=== PATIENT | male | born 1965 | race Caucasian/White ===

== ENCOUNTER 2017-10-26 07:36 | Emergency (ER) | payer OTHER, SELFPAY ==
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
[2017-10-26 07:50] VITALS: BP 143/81; PULSE 101; RESP 20; TEMP 36.3; O2SAT 98; BMI 25.4
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
[2017-10-26] MEDS: KETOROLAC 60 MG/2 ML VIAL 30 MG IM (08:06)
[2017-10-26 08:50] VITALS: BP 134/73; PULSE 86; RESP 15; O2SAT 97
== END 2017-10-26 08:58 | disposition home or self-care (01) ==
PROVIDERS: Emergency Provider Emergency Medicine
DX: M54.5 Low back pain (principal)
CPT/HCPCS: 72100; 96372; 99282; J1885

== ENCOUNTER → 2017-11-27 10:49 | Outpatient (CLI) | payer OTHER, SELFPAY ==
--- NOTE | 2017-11-27 10:52 | DI.RAD.S_ITS ---
PROCEDURE: XR LUMBAR SPINE 2-3V INDICATIONS: CHRONIC PAIN TECHNIQUE: 3 views of the lumbar spine were acquired. COMPARISON: None. FINDINGS: Bones: 5 [id number] vertebrae are present. There is mild dextroconvex curvature with slight retrolisthesis at L2-3, L3-4, L4-5 and L5-S1. Degenerative disc narrowing L3-4 and L5-S1. Multilevel facet sclerosis, most marked at L5-S1. No vertebral body compression fractures. No suspicious bony lesions. Soft tissues: Overlying bowel gas pattern is normal. Vascular calcifications. IMPRESSION: 1. No acute bony abnormality. Disc degeneration and facet arthropathy. Slight malalignment deformities. Scoliosis. Dictated by: Trent Casanova M.D. on 11/27/2017 at 11:09 Approved by: Trent Casanova M.D. on 11/27/2017 at 11:12
== END ==
PROVIDERS: Visit Provider Physician Assistant
DX: M51.36 Other intervertebral disc degeneration, lumbar region (principal); M51.37 Other intervertebral disc degeneration, lumbosacral region; M47.817 Spondylosis without myelopathy or radiculopathy, lumbosacral region; M54.5 Low back pain; G89.29 Other chronic pain; M41.9 Scoliosis, unspecified
CPT/HCPCS: 72100

== ENCOUNTER 2017-12-14 14:00 | Emergency (ER) | payer OTHER, SELFPAY ==
[2017-12-14 14:12] VITALS: BP 139/95; PULSE 108; RESP 14; TEMP 37.2; O2SAT 98; BMI 25.8
[2017-12-14] MEDS: KETOROLAC 60 MG/2 ML VIAL 30 MG IV (15:30)
[2017-12-14] MEDS: SODIUM CHLORIDE 0.9% 1,000 ML 1000 ML IV (15:30)
[2017-12-14 15:32] VITALS: BP 123/79; PULSE 84; RESP 14; O2SAT 96
--- NOTE | 2017-12-14 15:34 | PC.NURSE ---
Pt seen previously for left back / flank pain. States that it is no better. UA revealed blood in urine. No h/o kidney stones.
[2017-12-14 15:49] LABS: Add Manual Diff / Slide Review NO; Eosinophils Percent Auto 0.9 % (2-4); Hematocrit 37.1 % (41-53); Hemoglobin 13.2 g/dL (13.5-17.5); Lymphocytes Percent Auto 12.7 % (25-40); Mean Corpuscular HGB Conc 35.5 % (30-36); Mean Corpuscular Hemoglobin 30.6 PG (26-34); Mean Corpuscular Volume 86.2 fL (80-100); Monocytes Percent Auto 4.9 % (3-14); Neutrophils Absolute Auto 8800 /uL (3000-5900); Neutrophils Percent Auto 80.5 % (50-75); Platelet Count 278 X10^3/uL (150-400); Red Blood Cell Count 4.31 X10^6/uL (4.5-5.9); Red Cell Distribution Width 12.7 % (11.6-14.8); White Blood Cell Count 10.9 X10^3/uL (4.5-11.0)
[2017-12-14 15:57] LABS: Bacteria Urine Occasional (0-1); Culture Indicated Urine Cult Not Indicated; Hyaline Casts Urine 5-10/LPF; Mucus Urine 2+ (Negative); RBC Urine 5-10/HPF (0-5/HPF); Squamous Epithelial Cell Urine 0-1 /HPF; Transitional Epi Cells Urine 0-1/HPF (0-5/HPF); WBC Urine 1-5/HPF (0-5/HPF)
[2017-12-14 16:10] LABS: INR 1.2 (0.9-1.3); Prothrombin Time 12.6 SECONDS (10.1-12.7)
[2017-12-14 16:12] LABS: PTT Partial Thromboplastin Tim 31 SECONDS (26.4-36.2)
[2017-12-14 16:14] LABS: Alanine Aminotransferase 30 IU/L (21-72); Albumin 4.4 g/dL (3.5-5.0); Albumin Globulin Ratio 1.3 (1.0-2.8); Alkaline Phosphatase 92 U/L (38-126); Aspartate Aminotransferase 19 IU/L (17-59); BUN Creatinine Ratio 36.7 (6-22); Bilirubin Total 0.6 mg/dL (0.2-1.3); Blood Urea Nitrogen 22 mg/dL (9-20); Calcium 9.9 mg/dL (8.4-10.2); Carbon Dioxide 28 mmol/L (22-32); Chloride 103 mmol/L (98-107); Estimated Glomerular Filt Rate > 60.0 mL/min (>60); Globulin 3.5 g/dL (1.7-4.1); Glucose 81 mg/dL (70-100); HEMOLYSIS < 15 (0-50); Lipase 243 U/L (23-300); Potassium 4.2 mmol/L (3.4-5.1); Sodium 142 mmol/L (137-145); Total Protein 7.9 g/dL (6.3-8.2)
--- NOTE | 2017-12-14 17:16 | ED.BACK ---
HPI - Back Pain/Injury <BENITA Mcfarland - Last Filed: 12/14/17 22:27> General Chief Complaint: Back Pain/Injury Stated Complaint: LOWER LEFT FLANK AND BACK PAIN Time Seen by Provider: 12/14/17 17:16 Source: patient Mode of arrival: ambulatory Limitations: no limitations History of Present Illness HPI Narrative: 52-year-old male with history of polysubstance abuse and hypertension that is an everyday smoker here for complaint of having pain into his left flank area and left abdomen area for the last month and a half. He denies any stressors or relievers of his pain. He states he has positive p.o. intake. No nausea or vomiting. He denies any urinary symptoms. He denies having any complications with bowel movements. Last bowel movement was yesterday and was unremarkable. He denies any trauma to the area. No other concerns or complaints. Related Data Home Medications Medication Instructions Recorded Confirmed lisinopril 10 mg tablet 5 mg PO DAILY 11/26/17 12/14/17 lorazepam 1 mg tablet 1 mg BUCCAL BID-TID PRN 11/26/17 12/14/17 ibuprofen [Advil] 400 mg PO QID PRN 12/14/17 12/14/17 Previous Rx's Medication Instructions Recorded meloxicam 7.5 mg PO DAILY #30 tab 10/26/17 Allergies Allergy/AdvReac Type Severity Reaction Status Date / Time No Known Drug Allergies Allergy Verified 12/14/17 15:18 Review of Systems <BENITA Mcfarland - Last Filed: 12/14/17 22:27> Constitutional Denies chills, Denies fever(s), Denies lethargy and Denies weakness Eyes Denies change in vision, Denies eye discharge, Denies irritation and Denies loss of vision ENT Ears, Nose, Mouth, and Throat: Denies change in voice, Denies neck pain and Denies sore throat Cardiovascular Denies chest pain, Denies irregular heart rhythm, Denies lightheadedness, Denies palpitations, Denies dyspnea, Denies dyspnea on exertion and Denies orthopnea Respiratory Denies cough, Denies dyspnea, Denies dyspnea on exertion and Denies wheezing Gastrointestinal Gastrointestinal: Reports abdominal pain Genitourinary Comments: Left flank pain Musculoskeletal Denies neck pain Integumentary/Breasts Denies pruritus, Denies erythema, Denies rash and Denies wounds Neurologic Denies confusion, Denies loss of vision and Denies weakness Psychiatric Denies anxiety, Denies confusion, Denies depression, Denies homicidal ideation and Denies suicidal ideation Endocrine Denies palpitations Hematologic/Lymphatic Denies easy bruising Allergic/Immunologic Denies wheezing Exam <BENITA Mcfarland - Last Filed: 12/14/17 22:27> Initial Vital Signs Initial Vital Signs: Vital Signs Temperature 98.9 F 12/14/17 14:12 Pulse Rate 108 H 12/14/17 14:12 Respiratory Rate 14 12/14/17 14:12 Blood Pressure 139/95 H 12/14/17 14:12 Pulse Oximetry 98 12/14/17 14:12 Const General: cooperative and well developed Nutritional Appearance: well nourished Orientation: alert, awake, oriented x3 and not confused HENMT Mouth: oral mucosae normal and moist mucous membranes Eyes Conjunctivae: conjunctivae normal Sclera: sclerae normal Pupils: PERRL EOM: EOM intact bilaterally Cardio Rate: regular rate Rhythm: regular rhythm Heart Sounds: no click, no gallops, no murmurs and no rubs Pulses: normal peripheral pulses GI Inspection: non-distended Palpation: soft, no hepatosplenomegaly, No guarding, No pulsatile mass and No tender Auscultation: normal bowel sounds General: CVA tenderness Skin General: no rashes or lesions noted, No jaundice and No petechiae Neuro General: alert, oriented x3, gait normal and no focal motor deficits Speech: speech normal <Viktoriya Trivedi DO - Last Filed: 12/15/17 13:25> Initial Vital Signs Initial Vital Signs: Vital Signs Temperature 98.9 F 12/14/17 14:12 Pulse Rate 108 H 12/14/17 14:12 Respiratory Rate 14 12/14/17 14:12 Blood Pressure 139/95 H 12/14/17 14:12 Pulse Oximetry 98 12/14/17 14:12 Course <BENITA Mcfarland - Last Filed: 12/14/17 22:27> Orders Ordered: Discontinued Medications Sodium Chloride (Normal Saline 0.9%) 1,000 mls @ 1,000 mls/hr IV BOLUS ONE Stop: 12/14/17 16:16 Last Infusion: 12/14/17 17:32 Dose: 0 mls/hr Admin: 12/14/17 15:30 Dose: 1,000 mls/hr Ketorolac Tromethamine (Toradol) 30 mg IV NOW ONE Stop: 12/14/17 15:18 Last Admin: 12/14/17 15:30 Dose: 30 mg Vital Signs - 8 hr 12/14/17 15:32 Pulse Rate 84 Respiratory Rate 14 Blood Pressure [Right Arm] 123/79 H Pulse Oximetry 96 <Viktoriya Trivedi DO - Last Filed: 12/15/17 13:25> Orders Ordered: Discontinued Medications Sodium Chloride (Normal Saline 0.9%) 1,000 mls @ 1,000 mls/hr IV BOLUS ONE Stop: 12/14/17 16:16 Last Infusion: 12/14/17 17:32 Dose: 0 mls/hr Admin: 12/14/17 15:30 Dose: 1,000 mls/hr Ketorolac Tromethamine (Toradol) 30 mg IV NOW ONE Stop: 12/14/17 15:18 Last Admin: 12/14/17 15:30 Dose: 30 mg Vital Signs - 8 hr 12/14/17 15:32 Pulse Rate 84 Respiratory Rate 14 Blood Pressure [Right Arm] 123/79 H Pulse Oximetry 96 MDM - Back Pain/Injury <BENITA Mcfarland - Last Filed: 12/14/17 22:27> Lab Data Result diagrams: 12/14/17 15:35 12/14/17 15:35 Lab Results 12/14/17 12/14/17 12/14/17 Range/Units 14:32 15:35 15:35 WBC 10.9 (4.5-11.0) X10^3/uL RBC 4.31 L (4.5-5.9) X10^6/uL Hgb 13.2 L (13.5-17.5) g/dL Hct 37.1 L (41-53) % MCV 86.2 (80-100) fL MCH 30.6 (26-34) PG MCHC 35.5 (30-36) % RDW 12.7 (11.6-14.8) % Plt Count 278 (150-400) X10^3/uL Neut % (Auto) 80.5 H (50-75) % Lymph % (Auto) 12.7 L (25-40) % Montgomery % (Auto) 4.9 (3-14) % Eos % (Auto) 0.9 L (2-4) % Baso % (Auto) 1.0 (0-2) % Neut # (Auto) 8800 H (6902-4431) /uL PT 12.6 (10.1-12.7) SECONDS INR 1.2 (0.9-1.3) APTT 31 (26.4-36.2) SECONDS Sodium (137-145) mmol/L Potassium (3.4-5.1) mmol/L Chloride (98-107) mmol/L Carbon Dioxide (22-32) mmol/L BUN (9-20) mg/dL Creatinine (0.66-1.25) mg/dL Estimated GFR (>60) mL/min BUN/Creatinine Ratio (6-22) Glucose (70-100) mg/dL Calcium (8.4-10.2) mg/dL Total Bilirubin (0.2-1.3) mg/dL AST (17-59) IU/L ALT (21-72) IU/L Alkaline Phosphatase (38-126) U/L Total Protein (6.3-8.2) g/dL Albumin (3.5-5.0) g/dL Globulin (1.7-4.1) g/dL Albumin/Globulin Ratio (1.0-2.8) Lipase (23-300) U/L Urine RBC 5-10/hpf H (0-5/HPF) Urine WBC 1-5/hpf (0-5/HPF) Ur Squamous Epith Cells 0-1 /hpf Ur Transition Epith Cell 0-1/hpf (0-5/HPF) Urine Bacteria Occasional (0-1) (None) Hyaline Casts 5-10/lpf (None) Urine Mucus 2+ H (Negative) Ur Culture Indicated? Cult not indicated Micro UA Comment Not Reportable 12/14/17 Range/Units 15:35 WBC (4.5-11.0) X10^3/uL RBC (4.5-5.9) X10^6/uL Hgb (13.5-17.5) g/dL Hct (41-53) % MCV (80-100) fL MCH (26-34) PG MCHC (30-36) % RDW (11.6-14.8) % Plt Count (150-400) X10^3/uL Neut % (Auto) (50-75) % Lymph % (Auto) (25-40) % Montgomery % (Auto) (3-14) % Eos % (Auto) (2-4) % Baso % (Auto) (0-2) % Neut # (Auto) (6801-6709) /uL PT (10.1-12.7) SECONDS INR (0.9-1.3) APTT (26.4-36.2) SECONDS Sodium 142 (137-145) mmol/L Potassium 4.2 (3.4-5.1) mmol/L Chloride 103 (98-107) mmol/L Carbon Dioxide 28 (22-32) mmol/L BUN 22 H (9-20) mg/dL Creatinine 0.60 L (0.66-1.25) mg/dL Estimated GFR > 60.0 (>60) mL/min BUN/Creatinine Ratio 36.7 H (6-22) Glucose 81 (70-100) mg/dL Calcium 9.9 (8.4-10.2) mg/dL Total Bilirubin 0.6 (0.2-1.3) mg/dL AST 19 (17-59) IU/L ALT 30 (21-72) IU/L Alkaline Phosphatase 92 (38-126) U/L Total Protein 7.9 (6.3-8.2) g/dL Albumin 4.4 (3.5-5.0) g/dL Globulin 3.5 (1.7-4.1) g/dL Albumin/Globulin Ratio 1.3 (1.0-2.8) Lipase 243 (23-300) U/L Urine RBC (0-5/HPF) Urine WBC (0-5/HPF) Ur Squamous Epith Cells Ur Transition Epith Cell (0-5/HPF) Urine Bacteria (None) Hyaline Casts (None) Urine Mucus (Negative) Ur Culture Indicated? Micro UA Comment [facility] Narrative Medical decision making narrative: CBC was obtained shows mild anemia otherwise is unremarkable. Chem panel was obtained was unremarkable.. Lipase was negative. Urinalysis indicated positive red blood cells. Ordered CT of the abdomen for further evaluation. Patient eloped prior to obtaining CT. His symptoms were suspicious for a kidney stone and was not able to fully diagnose him. Follow up with primary care provider. Return emergency room for any worsening symptoms <Viktoriya Farooq, - Last Filed: 12/15/17 13:25> Lab Data Lab Results 12/14/17 12/14/17 12/14/17 Range/Units 14:32 15:35 15:35 WBC 10.9 (4.5-11.0) X10^3/uL RBC 4.31 L (4.5-5.9) X10^6/uL Hgb 13.2 L (13.5-17.5) g/dL Hct 37.1 L (41-53) % MCV 86.2 (80-100) fL MCH 30.6 (26-34) PG MCHC 35.5 (30-36) % RDW 12.7 (11.6-14.8) % Plt Count 278 (150-400) X10^3/uL Neut % (Auto) 80.5 H (50-75) % Lymph % (Auto) 12.7 L (25-40) % Montgomery % (Auto) 4.9 (3-14) % Eos % (Auto) 0.9 L (2-4) % Baso % (Auto) 1.0 (0-2) % Neut # (Auto) 8800 H (9140-5016) /uL PT 12.6 (10.1-12.7) SECONDS INR 1.2 (0.9-1.3) APTT 31 (26.4-36.2) SECONDS Sodium (137-145) mmol/L Potassium (3.4-5.1) mmol/L Chloride (98-107) mmol/L Carbon Dioxide (22-32) mmol/L BUN (9-20) mg/dL Creatinine (0.66-1.25) mg/dL Estimated GFR (>60) mL/min BUN/Creatinine Ratio (6-22) Glucose (70-100) mg/dL Calcium (8.4-10.2) mg/dL Total Bilirubin (0.2-1.3) mg/dL AST (17-59) IU/L ALT (21-72) IU/L Alkaline Phosphatase (38-126) U/L Total Protein (6.3-8.2) g/dL Albumin (3.5-5.0) g/dL Globulin (1.7-4.1) g/dL Albumin/Globulin Ratio (1.0-2.8) Lipase (23-300) U/L Urine RBC 5-10/hpf H (0-5/HPF) Urine WBC 1-5/hpf (0-5/HPF) Ur Squamous Epith Cells 0-1 /hpf Ur Transition Epith Cell 0-1/hpf (0-5/HPF) Urine Bacteria Occasional (0-1) (None) Hyaline Casts 5-10/lpf (None) Urine Mucus 2+ H (Negative) Ur Culture Indicated? Cult not indicated Micro UA Comment Not Reportable 12/14/17 Range/Units 15:35 WBC (4.5-11.0) X10^3/uL RBC (4.5-5.9) X10^6/uL Hgb (13.5-17.5) g/dL Hct (41-53) % MCV (80-100) fL MCH (26-34) PG MCHC (30-36) % RDW (11.6-14.8) % Plt Count (150-400) X10^3/uL Neut % (Auto) (50-75) % Lymph % (Auto) (25-40) % Montgomery % (Auto) (3-14) % Eos % (Auto) (2-4) % Baso % (Auto) (0-2) % Neut # (Auto) (1706-3772) /uL PT (10.1-12.7) SECONDS INR (0.9-1.3) APTT (26.4-36.2) SECONDS Sodium 142 (137-145) mmol/L Potassium 4.2 (3.4-5.1) mmol/L Chloride 103 (98-107) mmol/L Carbon Dioxide 28 (22-32) mmol/L BUN 22 H (9-20) mg/dL Creatinine 0.60 L (0.66-1.25) mg/dL Estimated GFR > 60.0 (>60) mL/min BUN/Creatinine Ratio 36.7 H (6-22) Glucose 81 (70-100) mg/dL Calcium 9.9 (8.4-10.2) mg/dL Total Bilirubin 0.6 (0.2-1.3) mg/dL AST 19 (17-59) IU/L ALT 30 (21-72) IU/L Alkaline Phosphatase 92 (38-126) U/L Total Protein 7.9 (6.3-8.2) g/dL Albumin 4.4 (3.5-5.0) g/dL Globulin 3.5 (1.7-4.1) g/dL Albumin/Globulin Ratio 1.3 (1.0-2.8) Lipase 243 (23-300) U/L Urine RBC (0-5/HPF) Urine WBC (0-5/HPF) Ur Squamous Epith Cells Ur Transition Epith Cell (0-5/HPF) Urine Bacteria (None) Hyaline Casts (None) Urine Mucus (Negative) Ur Culture Indicated? Micro UA Comment Discharge Plan Departure Patient Disposition: Left Against Medical Advice Clinical Impression: Right flank pain Discharge Date/Time: 12/14/17 17:30 Interventions: ED Discharge Assessment Last Done: 12/14/17 17:15 Instructions: DI for Flank Pain Activity Restrictions/Additional Instructions: Follow up with primary care provider. Return emergency room for any worsening symptoms. Prescriptions: No Action lisinopril 10 mg tablet 5 mg PO DAILY RF: 0 lorazepam 1 mg tablet 1 mg BUCCAL BID-TID PRN (Reason: Anxiety) RF: 0 meloxicam 7.5 mg tablet 7.5 mg PO DAILY Qty: 30 RF: 0 ibuprofen [Advil] 200 mg Tablet 400 mg PO QID PRN (Reason: Pain (Scale Score 1-3)) RF: 0 Referrals: [facility] [Provider Group] Stand Alone Forms: Against Medical Advice <Viktoriya Trivedi DO - Last Filed: 12/15/17 13:25> Cosign ED Attending Cosnateature Attestation: I was immediately available in the department for consultation. Documentation has been reviewed. I agree with assessment and plan.
--- NOTE | 2017-12-14 18:45 | PC.NURSE ---
PT YELLING IN HALLWAY DEMANDING TO LEAVE. EXPLAINED TO PT I WILL GO GET HIM AN UPDATE, AND HAVE THE PROVIDER COME SPEAK TO HIM. PARTITION NOTCHER IN HALLWAY WAITING TO TO TAKE PT TO CT. PT REFUSING TO GO TO CT. PROVIDER AWARE. PT SAYS FUCK THIS AND WALKS TO [facility]. EXPLAINED TO PT AMBULANCE BAY IS NOT AN EXIT, AND AFTER I TAKE OUT HIS IV I WILL SHOW HIM TO PROPER EXIT TO ER. PT CONTINUES TO WALK OUT AMBULANCE BAY. PT AT FIRST REFUSED TO ALLOW ME DISCONTINUE IV. AFTER I EXPLAINED TO THE PT IT IS NOT PERMITTED FOR HIM TO LEAVE ER WITH IV IN ARM FOR HIS OWN SAFETY. PT SAYS WELL FUCKING HURRY AND GET THIS THE FUCK OUT OF MY ARM. DISCONTINUED IV OUT OF PTS ARM. IV CATHETER INTACT. PT REFUSED GAUZE AND TAPE TO STOP BLEEDING, AND RAN DOWN THE SIDEWALK. PROVIDER AWARE. NO NEW ORDERS AT THIS TIME. PT AMBULATED WITH STEADY GAIT.
== END 2017-12-14 17:30 | disposition left against medical advice (07) ==
PROVIDERS: Emergency Provider Nurse Practitioner Family
DX: R10.9 Unspecified abdominal pain (principal)
CPT/HCPCS: 36415; 80053; 81003; 81015; 83690; 85025; 85610; 85730; 96361; 96374; 99283; 99284; J1885

== ENCOUNTER 2017-12-23 05:40 | Inpatient (IN) | payer OTHER, SELFPAY ==
[2017-12-23] VITALS (11 sets, daily range): BP systolic 138–193; BP diastolic 82–119; PULSE 76–113; RESP 16–19; TEMP 36.4–36.9; O2SAT 97–100; BMI 25.8
--- NOTE | 2017-12-23 06:47 | DI.CT.S_ITS ---
PROCEDURE: CT KIDNEY URETER BLADDER (KUB) INDICATIONS: Left flank pain, hematuria TECHNIQUE: Noncontrast 5 mm thick sections acquired from the diaphragms to the symphysis. 5 mm thick coronal and sagittal reformats were then performed. For radiation dose reduction, the following was used: automated exposure control, adjustment of mA and/or kV according to patient size. COMPARISON: [facility], CT, CT CHEST ABDOMEN PELVIS WITH CONTRAST, 10/10/2017, 20:21. [facility], CR, XR LUMBAR SPINE 2-3V, 10/26/2017, 8:05. [facility], CR, XR LUMBAR SPINE 2-3V, 11/27/2017, 10:30. [facility], CT, CT ANGIO CHEST PE, 10/31/2017, 7:50. [facility], CT, CT PELVIS WITHOUT CONTRAST, 10/11/2017, 15:42. [facility], CT, CHEST ABDOMEN PELVIS WITH CONTRAST, 02/11/2009, 21:30. FINDINGS: Image quality: Excellent. Lung bases: Lung bases are clear. Heart size is normal. Urinary system: Both kidneys are normal in size. No kidney stones. No hydronephrosis or perinephric fat stranding. Both ureters appear non-dilated throughout their expected courses. Bladder wall thickness is normal; no calcified bladder stones. Other solid organs: Liver is normal in size. Gallbladder appears normal. Pancreas is normal in contours. Spleen is normal in size. No adrenal nodules. Peritoneum and bowel: Unenhanced bowel loops demonstrate normal wall thickness and caliber. No free fluid or air. Nodes and vessels: No retroperitoneal or mesenteric adenopathy by size criteria. Aorta and inferior vena cava are normal in caliber. Abdominal wall: No ventral hernias. Pelvis: No free pelvic fluid. No inguinal hernias or adenopathy. Bones: The imaging along the lumbosacral spine shows sclerosis involving the vertebral body of L1 and the upper vertebral body of L2. There is a superior endplate mild impaction fracture at the upper endplate of L1 and what appears to be a Schmorl's node impacting the inferior endplate of L1 the upper endplate of L2. The left psoas muscle in this area is indistinctly marginated, and there is questionable ostial lysis involving the posterior inferior L1 vertebral body. The morphology of L1 and L2 is slightly changed on the reformatted and sagittal imaging versus the lumbosacral spine lateral view imaging from 11/27/17. There is also disc height reduction at L1-L2 that was not previously present. This represents an appreciable interval change from the appearance of the sagittal reformatted imaging from abdomen/pelvis CT 10/10/17. IMPRESSION: Significant pathology appears to be developing at the L1 and L2 levels of the lumbosacral spine. Both ostial lysis and sclerosis is seen in each of those areas as discussed above, and the appearance isn't significantly changed from the CT scanning from 10/10/17. New disc height reduction also is present. Discitis/osteomyelitis is suspected as the underlying cause. Spinal MRI without and with contrast likely is warranted at this time. These findings were immediately called to the emergency room physician caring for the patient. No source of left-sided flank pain otherwise is found. Dictated by: Thierry Enamorado M.D. on 12/23/2017 at 7:58 Approved by: Thierry Enamorado M.D. on 12/23/2017 at 8:10
[2017-12-23] MEDS: KETOROLAC 60 MG/2 ML VIAL IM (07:20)
[2017-12-23] MEDS: HYDROMORPHONE 2 MG INJ IM (07:21)
--- NOTE | 2017-12-23 07:39 | ED_ITS ---
HPI - Extremity Injury (Lower) <Tiarra Colvin MD - Last Filed: 12/30/17 08:40> General Chief Complaint: Extremity Injury, Lower Stated Complaint: left lower back, leg are in pain Time Seen by Provider: 12/23/17 06:34 Source: patient Mode of arrival: ambulatory Limitations: no limitations History of Present Illness HPI Narrative: Patient states he has had left flank pain for about a month. He states he has also noticed blood in his urine. Patient denies dysuria. He has a history of chronic low back pain but states that the flank pain is worse than usual, and he is worried about his kidney. Patient states he has had pain going down through his left buttock and down his left leg he denies fevers. He has had no nausea or vomiting. The only trigger that patient can think of is that he is vacuumed his house 2 days ago. Patient denies loss of bowel or bladder control; he states he occasionally has tingling in his left foot that this is not an issue currently. Severity scale (1-10): 4 Relieving factors: nothing Exacerbating factors: nothing Context: other ( Vacuuming 2 days ago) Associated symptoms: other ( no snap or pop, no swelling, no limitation in weight-bearing.) Other symptoms: none Related Data Home Medications Medication Instructions Recorded Confirmed ibuprofen [Advil] 400 mg PO QID PRN 12/14/17 12/23/17 lisinopril 5 mg PO DAILY 12/23/17 12/23/17 lorazepam 1 tab PO Q8H PRN 12/23/17 12/23/17 metoprolol succinate 1 tab PO DAILY 12/23/17 12/23/17 nortriptyline 25 mg PO BID 12/23/17 12/23/17 Previous Rx's Medication Instructions Recorded meloxicam 7.5 mg PO DAILY #30 tab 10/26/17 Allergies Allergy/AdvReac Type Severity Reaction Status Date / Time No Known Drug Allergies Allergy Verified 12/14/17 15:18 Review of Systems <Tiarra Colvin MD - Last Filed: 12/30/17 08:40> Review of Systems All systems reviewed & are unremarkable except as noted in HPI and below Constitutional Denies chills, Denies fever(s), Denies lethargy and Denies weakness Eyes Denies change in vision, Denies eye discharge, Denies irritation and Denies loss of vision ENT Ears, Nose, Mouth, and Throat: Denies change in voice, Denies neck pain and Denies sore throat Cardiovascular Denies chest pain, Denies irregular heart rhythm, Denies lightheadedness, Denies palpitations, Denies dyspnea, Denies dyspnea on exertion and Denies orthopnea Respiratory Denies cough, Denies dyspnea, Denies dyspnea on exertion and Denies wheezing Gastrointestinal Gastrointestinal: Denies abdominal pain, Denies change in bowel habits, Denies diarrhea, Denies nausea and Denies vomiting Genitourinary Denies hematuria, Denies flank pain, Denies urinary incontinence and Denies urinary urgency Musculoskeletal Reports back pain, Denies neck pain, Reports radiating pain into limb and Reports tingling Integumentary/Breasts Denies pruritus, Denies erythema, Denies rash and Denies wounds Neurologic Denies confusion, Denies loss of vision, Reports tingling and Denies weakness Psychiatric Denies anxiety, Denies confusion, Denies depression, Denies homicidal ideation and Denies suicidal ideation Endocrine Denies palpitations Hematologic/Lymphatic Denies easy bruising Allergic/Immunologic Denies wheezing Exam <Tiarra Colvin MD - Last Filed: 12/30/17 08:40> Initial Vital Signs Initial Vital Signs: Vital Signs Temperature 97.9 F 12/23/17 06:15 Pulse Rate 91 H 12/23/17 06:15 Respiratory Rate 17 12/23/17 06:15 Blood Pressure 168/91 H 12/23/17 06:15 Pulse Oximetry 99 12/23/17 06:15 Const General: cooperative and well developed Nutritional Appearance: well nourished Orientation: alert, awake, oriented x3 and not confused [facility] Head: normocephalic and atraumatic Ears: external ears normal Nose: external nose normal and No nasal discharge Face and sinus: face symmetric and No dry mucous membranes Mouth: oral mucosae normal and moist mucous membranes Eyes General: appearance normal, both eyes and all related structures Eyelids: eyelids normal Conjunctivae: conjunctivae normal Sclera: sclerae normal Pupils: PERRL EOM: EOM intact bilaterally Neck Neck: normal visual inspection, trachea midline, No lymphadenopathy, No midline deformity and No JVD Lymphatic: No lymphedema Chest Chest: normal inspection of the chest Resp Effort & Inspection: normal respiratory effort, able to speak in complete sentences, no respiratory distress and no use of accessory muscles Auscultation: clear to auscultation bilaterally, no rales, no rhonchi and no wheezes Cardio Rate: regular rate Rhythm: regular rhythm Heart Sounds: no click, no gallops, no murmurs and no rubs Pulses: normal peripheral pulses GI Inspection: non-distended Palpation: soft, no hepatosplenomegaly, No guarding, No pulsatile mass and No tender Auscultation: normal bowel sounds Back/Spine/Pelvis Back: No CVA tenderness Cervical Spine: cervical ROM normal and No pain with cervical ROM Thoracic/Lumbar Spine: thoracic and lumbar spine normal to inspection Skin General: no rashes or lesions noted, No jaundice and No petechiae Neuro General: alert, oriented x3, gait normal and no focal motor deficits Speech: speech normal Extrem General: full ROM, no clubbing, cyanosis or edema, no pedal edema and no calf tenderness Psych Appearance: well kempt Mental Status: mental status grossly normal Attitude: cooperative Thought Content: normal and suicidality Judgment: judgment good <Viktoriya Trivedi DO - Last Filed: 12/23/17 14:08> Initial Vital Signs Initial Vital Signs: Vital Signs Temperature 97.9 F 12/23/17 06:15 Pulse Rate 91 H 12/23/17 06:15 Respiratory Rate 17 12/23/17 06:15 Blood Pressure 168/91 H 12/23/17 06:15 Pulse Oximetry 99 12/23/17 06:15 Course <Tiarra Colvin MD - Last Filed: 12/30/17 08:40> Hospital Course: patient was treated symptomatically with IM Toradol and Dilaudid. He was set up for a CT KUB to evaluate his flank pain and hematuria as well. Patient was signed out to Dr. Trivedi pending CT. Orders Ordered: Discontinued Medications Acetaminophen (Tylenol) 650 mg PO Q4HR PRN PRN Reason: As Needed for Fever/Mild Pain Last Admin: 12/24/17 06:57 Dose: 650 mg Admin: 12/24/17 00:47 Dose: 650 mg Admin: 12/23/17 18:05 Dose: 650 mg Hydromorphone HCl (Dilaudid) 2 mg IM NOW ONE Stop: 12/23/17 06:49 Last Admin: 12/23/17 07:21 Dose: 2 mg Hydromorphone HCl (Dilaudid) 0.5 mg IV NOW ONE Stop: 12/23/17 10:09 Last Admin: 12/23/17 10:13 Dose: 0.5 mg Hydromorphone HCl (Dilaudid) 0.5 mg IV NOW ONE Stop: 12/23/17 11:44 Last Admin: 12/23/17 11:51 Dose: 0.5 mg Hydromorphone HCl (Dilaudid) 1 mg IV NOW ONE Stop: 12/23/17 14:23 Last Admin: 12/23/17 14:27 Dose: 1 mg Hydromorphone HCl (Dilaudid) 1 mg IV Q1HR PRN PRN Reason: Pain, Severe (7-10) Last Admin: 12/24/17 06:42 Dose: 1 mg Admin: 12/24/17 05:45 Dose: 1 mg Admin: 12/24/17 04:49 Dose: 1 mg Admin: 12/24/17 03:40 Dose: 1 mg Admin: 12/24/17 02:45 Dose: 1 mg Admin: 12/24/17 01:45 Dose: 1 mg Admin: 12/24/17 00:48 Dose: 1 mg Admin: 12/23/17 22:35 Dose: 1 mg Admin: 12/23/17 17:09 Dose: 1 mg Hydromorphone HCl (Dilaudid) 2 mg IV NOW ONE Stop: 12/23/17 17:58 Last Admin: 12/23/17 18:40 Dose: 2 mg Vancomycin HCl/Dextrose (Vancomycin) 1,000 mg in 200 mls @ 200 mls/hr IV NOW ONE Stop: 12/23/17 13:41 Last Infusion: 12/23/17 14:09 Dose: 0 mls/hr Admin: 12/23/17 13:02 Dose: 200 mls/hr Ibuprofen (Advil) 400 mg PO QID PRN PRN Reason: Pain (Scale Score 1-3) Ibuprofen (Advil) 400 mg PO QID PRN PRN Reason: Pain (Scale Score 1-3) Ketorolac Tromethamine (Toradol) 60 mg IM NOW ONE Stop: 12/23/17 06:49 Last Admin: 12/23/17 07:20 Dose: 60 mg Lisinopril (Zestril) 5 mg PO DAILY [facility] Lisinopril (Zestril) 5 mg PO NOW ONE Stop: 12/24/17 00:27 Lorazepam (Ativan) 2 mg IV NOW ONE Stop: 12/23/17 08:46 Last Admin: 12/23/17 11:40 Dose: Lorazepam (Ativan) 1 mg IV NOW ONE Stop: 12/23/17 10:10 Last Admin: 12/23/17 10:39 Dose: 1 mg Metoprolol Succinate (Toprol Xl) 25 mg PO DAILY [facility] Nortriptyline HCl (Pamelor) 25 mg PO BID [facility] Vital Signs - 8 hr 12/23/17 06:15 12/23/17 08:09 12/23/17 10:04 Temperature 97.9 F Pulse Rate 91 H 76 82 Respiratory Rate 17 16 16 Blood Pressure 168/91 H Blood Pressure [Left Arm] 159/84 H 178/82 H Pulse Oximetry 99 97 100 12/23/17 12:33 12/23/17 13:08 Temperature 98.0 F Pulse Rate 83 Respiratory Rate 19 Blood Pressure Blood Pressure [Left Arm] 138/86 Pulse Oximetry 98 <Viktoriya Trivedi, - Last Filed: 12/23/17 14:08> Orders Ordered: Discontinued Medications Acetaminophen (Tylenol) 650 mg PO Q4HR PRN PRN Reason: As Needed for Fever/Mild Pain Last Admin: 12/24/17 06:57 Dose: 650 mg Admin: 12/24/17 00:47 Dose: 650 mg Admin: 12/23/17 18:05 Dose: 650 mg Hydromorphone HCl (Dilaudid) 2 mg IM NOW ONE Stop: 12/23/17 06:49 Last Admin: 12/23/17 07:21 Dose: 2 mg Hydromorphone HCl (Dilaudid) 0.5 mg IV NOW ONE Stop: 12/23/17 10:09 Last Admin: 12/23/17 10:13 Dose: 0.5 mg Hydromorphone HCl (Dilaudid) 0.5 mg IV NOW ONE Stop: 12/23/17 11:44 Last Admin: 12/23/17 11:51 Dose: 0.5 mg Hydromorphone HCl (Dilaudid) 1 mg IV NOW ONE Stop: 12/23/17 14:23 Last Admin: 12/23/17 14:27 Dose: 1 mg Hydromorphone HCl (Dilaudid) 1 mg IV Q1HR PRN PRN Reason: Pain, Severe (7-10) Last Admin: 12/24/17 06:42 Dose: 1 mg Admin: 12/24/17 05:45 Dose: 1 mg Admin: 12/24/17 04:49 Dose: 1 mg Admin: 12/24/17 03:40 Dose: 1 mg Admin: 12/24/17 02:45 Dose: 1 mg Admin: 12/24/17 01:45 Dose: 1 mg Admin: 12/24/17 00:48 Dose: 1 mg Admin: 12/23/17 22:35 Dose: 1 mg Admin: 12/23/17 17:09 Dose: 1 mg Hydromorphone HCl (Dilaudid) 2 mg IV NOW ONE Stop: 12/23/17 17:58 Last Admin: 12/23/17 18:40 Dose: 2 mg Vancomycin HCl/Dextrose (Vancomycin) 1,000 mg in 200 mls @ 200 mls/hr IV NOW ONE Stop: 12/23/17 13:41 Last Infusion: 12/23/17 14:09 Dose: 0 mls/hr Admin: 12/23/17 13:02 Dose: 200 mls/hr Ibuprofen (Advil) 400 mg PO QID PRN PRN Reason: Pain (Scale Score 1-3) Ibuprofen (Advil) 400 mg PO QID PRN PRN Reason: Pain (Scale Score 1-3) Ketorolac Tromethamine (Toradol) 60 mg IM NOW ONE Stop: 12/23/17 06:49 Last Admin: 12/23/17 07:20 Dose: 60 mg Lisinopril (Zestril) 5 mg PO DAILY [facility] Lisinopril (Zestril) 5 mg PO NOW ONE Stop: 12/24/17 00:27 Lorazepam (Ativan) 2 mg IV NOW ONE Stop: 12/23/17 08:46 Last Admin: 12/23/17 11:40 Dose: Lorazepam (Ativan) 1 mg IV NOW ONE Stop: 12/23/17 10:10 Last Admin: 12/23/17 10:39 Dose: 1 mg Metoprolol Succinate (Toprol Xl) 25 mg PO DAILY [facility] Nortriptyline HCl (Pamelor) 25 mg PO BID [facility] Vital Signs - 8 hr 09/05/18 06:15 12/23/17 08:09 12/23/17 10:04 Temperature 97.9 F Pulse Rate 91 H 76 82 Respiratory Rate 17 16 16 Blood Pressure 168/91 H Blood Pressure [Left Arm] 159/84 H 178/82 H Pulse Oximetry 99 97 100 12/23/17 12:33 12/23/17 13:08 Temperature 98.0 F Pulse Rate 83 Respiratory Rate 19 Blood Pressure Blood Pressure [Left Arm] 138/86 Pulse Oximetry 98 MDM - Extremity Injury (Lower) <Tiarra Colvin MD - Last Filed: 12/30/17 08:40> Lab Data Result diagrams: 12/23/17 08:25 12/23/17 08:25 Lab Results 12/23/17 12/23/17 12/23/17 Range/Units 08:25 08:25 08:25 WBC 9.6 (4.5-11.0) X10^3/uL RBC 4.01 L (4.5-5.9) X10^6/uL Hgb 12.4 L (13.5-17.5) g/dL Hct 35.4 L (41-53) % MCV 88.1 (80-100) fL MCH 31.0 (26-34) PG MCHC 35.2 (30-36) % RDW 12.4 (11.6-14.8) % Plt Count 254 (150-400) X10^3/uL Neut % (Auto) 70.7 (50-75) % Lymph % (Auto) 19.3 L (25-40) % Petroleum % (Auto) 6.6 (3-14) % Eos % (Auto) 2.5 (2-4) % Baso % (Auto) 0.9 (0-2) % Neut # (Auto) 6800 H (3254-1068) /uL ESR 54 H (0-15) MM/HR Sodium 144 (137-145) mmol/L Potassium 5.1 (3.4-5.1) mmol/L Chloride 106 (98-107) mmol/L Carbon Dioxide 30 (22-32) mmol/L BUN 22 H (9-20) mg/dL Creatinine 0.50 L (0.66-1.25) mg/dL Estimated GFR > 60.0 (>60) mL/min BUN/Creatinine Ratio 44.0 H (6-22) Glucose 93 (70-100) mg/dL Lactate 1.1 (0.7-2.1) mmol/L Calcium 9.7 (8.4-10.2) mg/dL Total Bilirubin 0.6 (0.2-1.3) mg/dL AST 23 (17-59) IU/L ALT 20 L (21-72) IU/L Alkaline Phosphatase 64 (38-126) U/L C-Reactive Protein 2.4 H (<1.0) mg/dL Total Protein 7.9 (6.3-8.2) g/dL Albumin 4.4 (3.5-5.0) g/dL Globulin 3.5 (1.7-4.1) g/dL Albumin/Globulin Ratio 1.3 (1.0-2.8) Urine Color Urine Appearance Urine pH (4.5-8.0) Ur Specific Spurger (1.000-1.035) Urine Protein (Negative) Urine Glucose (UA) (Normal) g/dL Urine Ketones (NEGATIVE) Urine Occult Blood (Negative) Urine Nitrate (Negative) Urine Bilirubin (NEGATIVE) Urine Urobilinogen (0.2) E.U./dL Ur Leukocyte Esterase (NEGATIVE) Urine RBC (0-5/HPF) Urine WBC (0-5/HPF) Urine Bacteria (None) Ur Culture Indicated? Micro UA Comment 12/23/17 Range/Units 10:20 WBC (4.5-11.0) X10^3/uL RBC (4.5-5.9) X10^6/uL Hgb (13.5-17.5) g/dL Hct (41-53) % MCV (80-100) fL MCH (26-34) PG MCHC (30-36) % RDW (11.6-14.8) % Plt Count (150-400) X10^3/uL Neut % (Auto) (50-75) % Lymph % (Auto) (25-40) % Petroleum % (Auto) (3-14) % Eos % (Auto) (2-4) % Baso % (Auto) (0-2) % Neut # (Auto) (7630-8004) /uL ESR (0-15) MM/HR Sodium (137-145) mmol/L Potassium (3.4-5.1) mmol/L Chloride (98-107) mmol/L Carbon Dioxide (22-32) mmol/L BUN (9-20) mg/dL Creatinine (0.66-1.25) mg/dL Estimated GFR (>60) mL/min BUN/Creatinine Ratio (6-22) Glucose (70-100) mg/dL Lactate (0.7-2.1) mmol/L Calcium (8.4-10.2) mg/dL Total Bilirubin (0.2-1.3) mg/dL AST (17-59) IU/L ALT (21-72) IU/L Alkaline Phosphatase (38-126) U/L C-Reactive Protein (<1.0) mg/dL Total Protein (6.3-8.2) g/dL Albumin (3.5-5.0) g/dL Globulin (1.7-4.1) g/dL Albumin/Globulin Ratio (1.0-2.8) Urine Color Yellow Urine Appearance Clear Urine pH 5.5 (4.5-8.0) Ur Specific Spurger 1.020 (1.000-1.035) Urine Protein Negative (Negative) Urine Glucose (UA) Negative (Normal) g/dL Urine Ketones Negative (NEGATIVE) Urine Occult Blood 1+ H (Negative) Urine Nitrate Negative (Negative) Urine Bilirubin Negative (NEGATIVE) Urine Urobilinogen 0.2 (0.2) E.U./dL Ur Leukocyte Esterase Negative (NEGATIVE) Urine RBC 1-5/hpf (0-5/HPF) Urine WBC None seen (0-5/HPF) Urine Bacteria None seen (None) Ur Culture Indicated? Cult not indicated Micro UA Comment Not Reportable <Viktoriya Trivedi, DO - Last Filed: 12/23/17 14:08> Lab Data Attestation: I reviewed the patient's lab results. Lab Results 12/23/17 12/23/17 12/23/17 Range/Units 08:25 08:25 08:25 WBC 9.6 (4.5-11.0) X10^3/uL RBC 4.01 L (4.5-5.9) X10^6/uL Hgb 12.4 L (13.5-17.5) g/dL Hct 35.4 L (41-53) % MCV 88.1 (80-100) fL MCH 31.0 (26-34) PG MCHC 35.2 (30-36) % RDW 12.4 (11.6-14.8) % Plt Count 254 (150-400) X10^3/uL Neut % (Auto) 70.7 (50-75) % Lymph % (Auto) 19.3 L (25-40) % Petroleum % (Auto) 6.6 (3-14) % Eos % (Auto) 2.5 (2-4) % Baso % (Auto) 0.9 (0-2) % Neut # (Auto) 6800 H (8693-7701) /uL ESR 54 H (0-15) MM/HR Sodium 144 (137-145) mmol/L Potassium 5.1 (3.4-5.1) mmol/L Chloride 106 (98-107) mmol/L Carbon Dioxide 30 (22-32) mmol/L BUN 22 H (9-20) mg/dL Creatinine 0.50 L (0.66-1.25) mg/dL Estimated GFR > 60.0 (>60) mL/min BUN/Creatinine Ratio 44.0 H (6-22) Glucose 93 (70-100) mg/dL Lactate 1.1 (0.7-2.1) mmol/L Calcium 9.7 (8.4-10.2) mg/dL Total Bilirubin 0.6 (0.2-1.3) mg/dL AST 23 (17-59) IU/L ALT 20 L (21-72) IU/L Alkaline Phosphatase 64 (38-126) U/L C-Reactive Protein 2.4 H (<1.0) mg/dL Total Protein 7.9 (6.3-8.2) g/dL Albumin 4.4 (3.5-5.0) g/dL Globulin 3.5 (1.7-4.1) g/dL Albumin/Globulin Ratio 1.3 (1.0-2.8) Urine Color Urine Appearance Urine pH (4.5-8.0) Ur Specific Spurger (1.000-1.035) Urine Protein (Negative) Urine Glucose (UA) (Normal) g/dL Urine Ketones (NEGATIVE) Urine Occult Blood (Negative) Urine Nitrate (Negative) Urine Bilirubin (NEGATIVE) Urine Urobilinogen (0.2) E.U./dL Ur Leukocyte Esterase (NEGATIVE) Urine RBC (0-5/HPF) Urine WBC (0-5/HPF) Urine Bacteria (None) Ur Culture Indicated? Micro UA Comment 12/23/17 Range/Units 10:20 WBC (4.5-11.0) X10^3/uL RBC (4.5-5.9) X10^6/uL Hgb (13.5-17.5) g/dL Hct (41-53) % MCV (80-100) fL MCH (26-34) PG MCHC (30-36) % RDW (11.6-14.8) % Plt Count (150-400) X10^3/uL Neut % (Auto) (50-75) % Lymph % (Auto) (25-40) % Petroleum % (Auto) (3-14) % Eos % (Auto) (2-4) % Baso % (Auto) (0-2) % Neut # (Auto) (9813-6494) /uL ESR (0-15) MM/HR Sodium (137-145) mmol/L Potassium (3.4-5.1) mmol/L Chloride (98-107) mmol/L Carbon Dioxide (22-32) mmol/L BUN (9-20) mg/dL Creatinine (0.66-1.25) mg/dL Estimated GFR (>60) mL/min BUN/Creatinine Ratio (6-22) Glucose (70-100) mg/dL Lactate (0.7-2.1) mmol/L Calcium (8.4-10.2) mg/dL Total Bilirubin (0.2-1.3) mg/dL AST (17-59) IU/L ALT (21-72) IU/L Alkaline Phosphatase (38-126) U/L C-Reactive Protein (<1.0) mg/dL Total Protein (6.3-8.2) g/dL Albumin (3.5-5.0) g/dL Globulin (1.7-4.1) g/dL Albumin/Globulin Ratio (1.0-2.8) Urine Color Yellow Urine Appearance Clear Urine pH 5.5 (4.5-8.0) Ur Specific Spurger 1.020 (1.000-1.035) Urine Protein Negative (Negative) Urine Glucose (UA) Negative (Normal) g/dL Urine Ketones Negative (NEGATIVE) Urine Occult Blood 1+ H (Negative) Urine Nitrate Negative (Negative) Urine Bilirubin Negative (NEGATIVE) Urine Urobilinogen 0.2 (0.2) E.U./dL Ur Leukocyte Esterase Negative (NEGATIVE) Urine RBC 1-5/hpf (0-5/HPF) Urine WBC None seen (0-5/HPF) Urine Bacteria None seen (None) Ur Culture Indicated? Cult not indicated Micro UA Comment Not Reportable MDM Narrative Medical decision making narrative: Patient signed out to me by Dr. Colvin. CT report shows lytic lesions of L1-L2 possible diskitis and osteomyelitis new since September. I seen evaluated patient myself he complains of midline pain and bilateral lumbar flank pain. He says sometimes when he walks his legs just give out. His back is always hurting. He denies any fever or chills. He sometimes has headaches. Patient's MRI confirms diskitis and osteomyelitis of L1 and L2. He has elevated ESR and CRP. He is started on vancomycin here in the emergency department. I have discussed case with Dr. Ortiz now requests Orthopedics involvement before he admits patient. I have discussed case with Dr. Shankar who is not a spine surgeon but does recommend IV antibiotics for osteomyelitis. He will referred to his spine specialists to review the MRI. Dr. Jones accepts patient Discharge Plan Departure Patient Disposition: Admitted As Inpatient Clinical Impression: Acute osteomyelitis of lumbar spine, Discitis of lumbar region Discharge Date/Time: 12/23/17 14:28 Interventions: ED Discharge Assessment Last Done: 12/23/17 14:28 Admit Date/Time: 12/23/17 14:13 Admit Provider: Daron Jones <Viktoriya Trivedi DO - Last Filed: 12/23/17 14:08> Sign Out Provider Sign Out Attestation:
--- NOTE | 2017-12-23 08:09 | PC.NURSE ---
States pain that continues down l leg. 06/27.
--- NOTE | 2017-12-23 08:28 | DI.MRI.S_ITS ---
PROCEDURE: MR LUMBAR SPINE WO/W CON INDICATIONS: discitis/osteomyelitis L1-L2 on CT TECHNIQUE: Noncontrast sagittal T1 spin echo and T2 fast spin echo, sagittal STIR, axial T1 and T2 fast spin echo through the lumbar spine. In cases with scoliosis, additional coronal T2 fast spin echo may be performed. After the administration of contrast, sagittal and axial T1 spin echo with fat saturation through the lumbar spine. COMPARISON: Located Within [facility], CT, CT KIDNEY URETER BLADDER (KUB), 12/23/2017, 7:31. FINDINGS: Image quality: Excellent. Alignment and curvature: There is minimal retrolisthesis seen at the L1-L2 level. Marrow: Marrow is of normal overall signal. No acute vertebral body compression fractures. No suspicious marrow enhancement. Spinal cord: Conus medullaris terminates at the T12-L1 level. Visualized spinal cord demonstrates normal signal, without suspicious enhancement. Paraspinous soft tissues: No paravertebral masses or abnormal enhancement. T12-L1: Mild to moderate loss of disc height and disc signal are seen in both moderate disc bulge is seen. No significant neural foraminal or central canal narrowing are seen. L1-L2: Abnormally increased T2-weighted/STIR signal can be seen at the disc level. There is endplate irregularity seen, with decreased precontrast T1 weighted signal and overall increased signal seen on T2-weighted imaging and especially increased signal on STIR imaging. There is abnormal enhancement seen of the L1 and L2 vertebral bodies, as on series 8 image 11. There is abnormal enhancement seen within the surrounding soft tissues, particularly affecting the left psoas muscle, as on series 9 image 20, with expansion of the left psoas muscle. There is abnormal enhancing epidural material, which is best seen on series 8 image 11 and series 9 image 20, which spans the lengths of the L1 and L2 vertebral bodies, with a craniocaudal extent of 4.6 cm. No significant abnormal epidural fluid is seen on T2-weighted imaging. There is moderate right-sided and moderate to severe left-sided neural narrowing seen. There is impingement seen upon the exiting left L1 nerve root. There is moderate to severe central canal narrowing seen, as on series 9 image 31. L2-L3: The disc height is well-preserved. Loss of disc signal is seen at this level. Both moderate disc bulge is seen. There is no significant right-sided and moderate left-sided neural foraminal narrowing seen. Mild central canal narrowing is seen. L3-L4: Mild loss of disc height is seen. Moderate disc bulge is seen, which is eccentric the left. There is moderate bilateral neural foraminal narrowing seen, right worse than left. Moderate central canal narrowing is seen. L4-L5: The disc height is well-preserved. Loss of disc signal is seen at this level. Moderate disc bulge is seen, which is eccentric to the left. Moderate facet hypertrophy is seen. There is at least moderate left-sided and moderate to severe right-sided neural foraminal narrowing seen. Impingement can be seen upon the exiting right L4 nerve root. Moderate central canal narrowing is seen. L5-S1: Moderate loss of disc height is seen. Loss of disc signal is seen. Moderate disc bulge is seen, which is eccentric to the right. Moderate facet joint hypertrophy is seen. Ftyt-[id number]-lojloyrg bilateral neural foraminal narrowing is seen. Mild central canal narrowing is seen. IMPRESSION: Discitis/osteomyelitis at the L1-L2 level. There is abnormal enhancing epidural material seen at the L1-L2 level on the left, with associated moderate to severe central canal narrowing. No abnormal T2 hyperintense material can be seen to suggest a willie epidural abscess, however. Abnormal surrounding soft tissue enhancement can be seen, with thickening and abnormal signal and enhancement of the left psoas muscle. Underlying degenerative changes are seen, which are overall most prominent at the L4-L5 level. Dictated by: Pavan Solomon M.D. on 12/23/2017 at 11:07 Approved by: Pavan Solomon M.D. on 12/23/2017 at 11:18
--- NOTE | 2017-12-23 08:41 | PC.NURSE ---
States has had to go to the open MRI before due to claustrophobia
[2017-12-23 08:47] LABS: Add Manual Diff / Slide Review NO; Basophils Percent Auto 0.9 % (0-2); Eosinophils Percent Auto 2.5 % (2-4); Hematocrit 35.4 % (41-53); Hemoglobin 12.4 g/dL (13.5-17.5); Lymphocytes Percent Auto 19.3 % (25-40); Mean Corpuscular HGB Conc 35.2 % (30-36); Mean Corpuscular Volume 88.1 fL (80-100); Monocytes Percent Auto 6.6 % (3-14); Neutrophils Absolute Auto 6800 /uL (3000-5900); Neutrophils Percent Auto 70.7 % (50-75); Platelet Count 254 X10^3/uL (150-400); Red Blood Cell Count 4.01 X10^6/uL (4.5-5.9); Red Cell Distribution Width 12.4 % (11.6-14.8); White Blood Cell Count 9.6 X10^3/uL (4.5-11.0)
[2017-12-23 08:56] LABS: Lactate (Lactic Acid) 1.1 mmol/L (0.7-2.1)
[2017-12-23 08:58] LABS: Alanine Aminotransferase 20 IU/L (21-72); Albumin 4.4 g/dL (3.5-5.0); Albumin Globulin Ratio 1.3 (1.0-2.8); Alkaline Phosphatase 64 U/L (38-126); Aspartate Aminotransferase 23 IU/L (17-59); Bilirubin Total 0.6 mg/dL (0.2-1.3); Blood Urea Nitrogen 22 mg/dL (9-20); C-Reactive Protein Quant 2.4 mg/dL (<1.0); Calcium 9.7 mg/dL (8.4-10.2); Carbon Dioxide 30 mmol/L (22-32); Chloride 106 mmol/L (98-107); Estimated Glomerular Filt Rate > 60.0 mL/min (>60); Globulin 3.5 g/dL (1.7-4.1); Glucose 93 mg/dL (70-100); Potassium 5.1 mmol/L (3.4-5.1); Sodium 144 mmol/L (137-145); Total Protein 7.9 g/dL (6.3-8.2)
[2017-12-23 09:00] LABS: HEMOLYSIS 81 (0-50)
[2017-12-23 09:19] LABS: Erythrocyte Sedimentation Rate 54 MM/HR (0-15)
[2017-12-23] MEDS: HYDROMORPHONE 1 MG INJ 0.5 MG IV ×2 (10:13→11:51)
[2017-12-23 10:35] LABS: Bacteria Urine None Seen; WBC Urine None Seen (0-5/HPF)
[2017-12-23 10:37] LABS: Appearance Urine UA CLEAR; Bilirubin Urine UA NEGATIVE (NEGATIVE); Color Urine UA YELLOW; Glucose Urine UA NEGATIVE (Normal); Ketones Urine UA NEGATIVE (NEGATIVE); Leukocyte Esterase Urine UA NEGATIVE (NEGATIVE); Nitrite Urine UA Negative (Negative); Occult Blood Urine UA 1+ (Negative); Protein Urine UA NEGATIVE (Negative); Urobilinogen Urine UA 0.2 E.U./dL (0.2); pH Urine UA 5.5 (4.5-8.0)
[2017-12-23] MEDS: LORazepam 2 MG/ML SYRINGE 1 MG IV (10:39)
--- NOTE | 2017-12-23 10:42 | PC.NURSE ---
Meds given IVP for MRI.
[2017-12-23 10:45] LABS: Culture Indicated Urine Cult Not Indicated; RBC Urine 1-5/HPF (0-5/HPF)
[2017-12-23] MEDS: VANCOMYCIN 1,000 MG/200 ML FROZ.PIGGY 200 MG IV (13:02)
--- NOTE | 2017-12-23 14:20 | PM.CN ---
History of Present Illness Date Patient Seen: 12/23/17 Time Patient Seen: 14:20 Chief complaint: left lower back, leg are in pain Reason for consult: Lumbar osteomyelitis/diskitis Requesting provider: Viktoriya Trivedi Narrative: The patient is a 52-year-old man has asked to see by Dr Trivedi for L1-L2 osteomyelitis and diskitis. The patient reports he has had a long history of general problems with his back. However, he started having increased pain about 2 months ago. There is an x-ray of the lumbar spine from October. The pain has been worsening over time and got quite severe today. The pain in his low back and somewhat out to his left flank. He does have a little bit of soreness and pain into the anterior aspect of both thighs. There is no pain radiating further down the leg by his report. He denies any numbness or obvious weakness. He has had a few episodes in the last few months with the legs have given out on him which may be more due to pain. He denies any loss of bowel or bladder function. [facility] Medical History HTN (hypertension) (Acute) Surgical History No pertinent past surgical history (Acute) Social History Smoking Status: Current every day smoker alcohol intake: former Meds Home Medications Medication Instructions Recorded Confirmed Type meloxicam 7.5 mg PO DAILY #30 tab 10/26/17 12/23/17 Rx ibuprofen [Advil] 400 mg PO QID PRN 12/14/17 12/23/17 History lisinopril 5 mg PO DAILY 12/23/17 12/23/17 History lorazepam 1 tab PO Q8H PRN 12/23/17 12/23/17 History metoprolol succinate 1 tab PO DAILY 12/23/17 12/23/17 History nortriptyline 25 mg PO BID 12/23/17 12/23/17 History Allergies Allergy/AdvReac Type Severity Reaction Status Date / Time No Known Drug Allergies Allergy Verified 12/14/17 15:18 Review of Systems Review of Systems All systems reviewed & are unremarkable except as noted in HPI and below Exam Vital Signs (past 8 hours): - 12/23/17 08:09 12/23/17 10:04 12/23/17 12:33 Temperature Pulse Rate 76 82 83 Respiratory Rate 16 16 19 Blood Pressure [Left Arm] 159/84 H 178/82 H 138/86 Pulse Oximetry 97 100 98 12/23/17 13:08 Temperature 98.0 F Pulse Rate Respiratory Rate Blood Pressure [Left Arm] Pulse Oximetry Oxygen Delivery Method Room Air Narrative Exam Narrative: The patient is laying in bed and appears to be in moderate discomfort. He is fully alert and oriented. Resp Auscultation: clear to auscultation bilaterally Cardio Rate: regular rate Rhythm: regular rhythm Back/Spine/Pelvis Thoracic/Lumbar Spine: thoraco-lumbar ROM limited and lumbar spinal tenderness Skin General: no rashes or lesions noted Neuro General: alert, oriented x3, moves all extremities and no focal motor deficits Motor: muscle tone normal throughout and strength 5/5 throughout Sensory Exam: no sensory deficits noted Objective Labs Result Diagrams: 12/23/17 08:25 12/23/17 08:25 Labs: Laboratory Results - last 24 hr 12/23/17 12/23/17 12/23/17 08:25 08:25 08:25 WBC 9.6 RBC 4.01 L Hgb 12.4 L Hct 35.4 L MCV 88.1 MCH 31.0 MCHC 35.2 RDW 12.4 Plt Count 254 Neut % (Auto) 70.7 Lymph % (Auto) 19.3 L [place] % (Auto) 6.6 Eos % (Auto) 2.5 Baso % (Auto) 0.9 Neut # (Auto) 6800 H ESR 54 H Sodium 144 Potassium 5.1 Chloride 106 Carbon Dioxide 30 BUN 22 H Creatinine 0.50 L Estimated GFR > 60.0 BUN/Creatinine Ratio 44.0 H Glucose 93 Lactate 1.1 Calcium 9.7 Total Bilirubin 0.6 AST 23 ALT 20 L Alkaline Phosphatase 64 C-Reactive Protein 2.4 H Total Protein 7.9 Albumin 4.4 Globulin 3.5 Albumin/Globulin Ratio 1.3 Urine Color Urine Appearance Urine pH Ur Specific [place] Urine Protein Urine Glucose (UA) Urine Ketones Urine Occult Blood Urine Nitrate Urine Bilirubin Urine Urobilinogen Ur Leukocyte Esterase Urine RBC Urine WBC Urine Bacteria Ur Culture Indicated? Micro UA Comment 12/23/17 10:20 WBC RBC Hgb Hct MCV MCH MCHC RDW Plt Count Neut % (Auto) Lymph % (Auto) [place] % (Auto) Eos % (Auto) Baso % (Auto) Neut # (Auto) ESR Sodium Potassium Chloride Carbon Dioxide BUN Creatinine Estimated GFR BUN/Creatinine Ratio Glucose Lactate Calcium Total Bilirubin AST ALT Alkaline Phosphatase C-Reactive Protein Total Protein Albumin Globulin Albumin/Globulin Ratio Urine Color Yellow Urine Appearance Clear Urine pH 5.5 Ur Specific [place] 1.020 Urine Protein Negative Urine Glucose (UA) Negative Urine Ketones Negative Urine Occult Blood 1+ H Urine Nitrate Negative Urine Bilirubin Negative Urine Urobilinogen 0.2 Ur Leukocyte Esterase Negative Urine RBC 1-5/hpf Urine WBC None seen Urine Bacteria None seen Ur Culture Indicated? Cult not indicated Micro UA Comment Not Reportable Assessment & Plan Plan: Assessment/Plan Narrative: L1-L2 osteomyelitis/diskitis. The patient's MRI scan was reviewed with Dr. Felder. The scan shows extensive osteomyelitis diskitis with some potential early bony collapse. No evidence of any epidural abscess. At this point the patient is having back pain and no significant leg symptoms or any neurologic symptoms. Dr Felder has recommended initial treatment with IV antibiotics. He has also recommended a TLSO brace. The brace should be warm with any ambulation. X-rays and an MRI scan with and without contrast should be repeated in 1 week. He will follow up with Dr. Felder in clinic once he has been released. Surgical treatment would be considered if he develops any neurologic symptoms for significant bony collapse was noted. Time Spent With Patient Time with patient: less than 15 minutes
[2017-12-23] MEDS: HYDROMORPHONE 1 MG INJ IV (14:27)
[2017-12-23] MEDS: HYDROMORPHONE 2 MG INJ 1 MG IV ×2 (17:09→22:35)
--- NOTE | 2017-12-23 17:25 | PT.IPTN ---
Physical Therapy Treatment Note M3 PT-IP Subjective Start: 12/23/17 17:23 Freq: NEEDED Status: Active Protocol: Document 12/23/17 17:23 MDD (Rec: 12/23/17 17:25 MDD [id number]) Subjective Physical Therapy Visit Type Type Treatment Note Notes Attempted to see pt at 16:08. Pt very upset about possibility of needing to get a biopsy. Spoke to nursing and hospitalist who are working on possible transfer today. PT asked to HOLD at this time.
[2017-12-23] MEDS: ACETAMINOPHEN 325 MG TABLET 650 MG PO (18:05)
--- NOTE | 2017-12-23 18:09 | PC.NURSE ---
Addendum entered by Antonio Reese R.N. 12/23/17 22:48: patient states he did not take his morning BP medication wants to take now. informed of patients request for home medications and of patients last BP, Dr Jones states he will put them through Original Note: JT IS UPSET WILL NOT STAY IN ROOM,PER MD ORDERS DUE TO IV DILAUDID.ASKED TO STAY IN ROOM
[2017-12-23] MEDS: HYDROMORPHONE 2 MG INJ IV (18:40)
--- NOTE | 2017-12-23 21:08 | PC.NURSE ---
Per and infection disease specialist feel that this patient should be transferred to a hospital for higher level of care. has seen this patient numerous times during this evening explaining why patient needs to be transferred. Patient has been very adamant that since the ED started him on a antibiotic he wants this hospital to treat him and is refusing to be transferred to another hospital. This RN spoke with patient about why this hospital is unable to treat him appropriately but the patient very loudly disagrees and does not want to follow numerous doctors recommendations to be moved to a hospital in [place]. This Rn Spoke with powerhouse mechanic supervisor nAjali Cid about the situation and she recommended that clearly explain to patient why [facility] is unable to treat this patient appropriately and what possibly could happen to the patient if he isn't treated with an accurate level of care. This Rn and went back into the patients room so once again could explain the highly recommended reason on why this patient needs to go to a hospital that can treat him appropriately and also again explain to the patient the risk factors on not getting treated. Patient was nonverbal and obviously ignoring . Then loudly stated he was not going anywhere and to leave him alone if we are not going to listen to him. Please see 's note to get specifics.
--- NOTE | 2017-12-23 22:32 | PM.HP.1 ---
History of Present Illness Date Patient Seen: 12/23/17 Time Patient Seen: 17:32 Chief complaint: left lower back, leg are in pain Narrative: Patient is a 52 years of age male that was seen in the emergency room [facility] earlier in the day. Patient was complaining of lower back pain. MRI of the lumbar spine was done and disclosed a diskitis at L1-L2 as well as osteomyelitis at L1 and L2 vertebrae. ER physician spoke to the orthopedic surgeon juvenile probation officer who conferred with Dr. Felder and advised that patient would be treated with IV antibiotics and no surgical intervention was planned. Orthopedic surgeon also called me to discuss this patient. He advised that I speak to the infectious disease doctor regarding methodology and treatment with antibiotic for the diskitis and osteomyelitis of the spine. In the meantime patient was sent to the floor for inpatient care. ER physician administered 1 dose of vancomycin intravenously before transfer to the medical surg floor. I contacted Dr. Graff infectious Disease financial management consultant at [facility] and he advised the patient should undergo a biopsy of the osteomyelitis diskitis before proceeding with antibiotic. I contacted Interventional Radiology to have patient undergo the recommended biopsy. I discovered there is no interventional Radiology to do so. In view of standard of care which involves biopsy and definitive identification organism before proceeding with antibiotic treatment it was clear patient needed to be transferred to another facility. I spoke to the patient of our plans to transfer the patient so that we can proceed with the recommended biopsy before antibiotic treatment. Patient responded in a very uncooperative manner. He was also somewhat difficult with the nursing staff since he felt it was appropriate and acceptable to allow walk off the floor to smoke a cigarette though he is receiving IV injections of Dilaudid narcotic. Patient was accusatory toward me for not willing to continue the antibiotic regimen that was started by ER physician. Prior to speaking to the patient I was making arrangements through his insurance company [employer] the transfer to 1 of their facilities where they have the nurse surgical team and means to provide the care patient requires. Dr. Keating at [facility] contacted the neural surgical team of [facility] in [place] and spoke to an accepting physician Dr. leach and he was proceeding to make arrangements for transfer of patient to their facility. I went back to speak to the patient further and tried to obtain his medical history. He was simply annoyed and did wish to speak to me. I informed the assistant housekeeping manager my problem with the patient and she spoke to the patient as well. He was refusing to allow a transfer to another facility and expected us to provide appropriate care here. I repeatedly explained to him that we do not have an interventional radiologist to conduct the biopsy procedure before we initiate the antibiotic regimen identified most suitable based upon culture from biopsy. The assistant housekeeping manager came to bedside with me as I explained to the patient the danger of him not undergoing proper treatment for this diskitis and osteomyelitis of the L1-L2 spine region. Patient continued to be sarcastic and oppositional and unwilling to provide any further information. Patient History Medical History HTN (hypertension) (Acute) Surgical History No pertinent past surgical history (Acute) Family & Social History Social History: household members family Prior Living Arrangements Apartment/Condo Safety & Behavioral: Feels Safe in Current Yes Environment Been Physically Hurt or No Threatened By a Person Suicidal Ideation Description None Suicide Plan Description No Plan Tobacco & Substance use: Tobacco type cigarettes Smoking Status Current every day smoker alcohol intake former alcohol intake frequency 0-2 drinks per day Substance Use Type does not use Meds Home Medications Medication Instructions Recorded Confirmed Type meloxicam 7.5 mg PO DAILY #30 tab 10/26/17 12/23/17 Rx ibuprofen [Advil] 400 mg PO QID PRN 12/14/17 12/23/17 History lisinopril 5 mg PO DAILY 12/23/17 12/23/17 History lorazepam 1 tab PO Q8H PRN 12/23/17 12/23/17 History metoprolol succinate 1 tab PO DAILY 12/23/17 12/23/17 History nortriptyline 25 mg PO BID 12/23/17 12/23/17 History Allergies Allergy/AdvReac Type Severity Reaction Status Date / Time No Known Drug Allergies Allergy Verified 12/14/17 15:18 Review of Systems Review of Systems From the fits tree acute obtain patient has a low back pain with some radiation laterally. No other specific complaints noted by patient. No complaint pain or weakness to the lower extremity. A 10 point system review could not be obtained from the patient due to his uncooperativeness and unwillingness to answer questions. Exam Vital Signs (past 8 hours): - 12/23/17 15:01 12/23/17 15:35 12/23/17 19:55 Temperature 97.5 F L 97.8 F 98.4 F Pulse Rate 76 87 103 H Respiratory Rate 18 18 18 Blood Pressure 145/98 H 188/100 H 176/97 H Pulse Oximetry 100 98 99 Oxygen Delivery Method Room Air Oxygen Flow Rate 0 Narrative Exam Narrative: And exam could not be conducted on this patient. He was unwilling to cooperate. Objective Labs Result Diagrams: 12/23/17 08:25 12/23/17 08:25 Labs: Laboratory Results - last 24 hr 12/23/17 12/23/17 12/23/17 08:25 08:25 08:25 WBC 9.6 RBC 4.01 L Hgb 12.4 L Hct 35.4 L MCV 88.1 MCH 31.0 MCHC 35.2 RDW 12.4 Plt Count 254 Neut % (Auto) 70.7 Lymph % (Auto) 19.3 L [place] % (Auto) 6.6 Eos % (Auto) 2.5 Baso % (Auto) 0.9 Neut # (Auto) 6800 H ESR 54 H Sodium 144 Potassium 5.1 Chloride 106 Carbon Dioxide 30 BUN 22 H Creatinine 0.50 L Estimated GFR > 60.0 BUN/Creatinine Ratio 44.0 H Glucose 93 Lactate 1.1 Calcium 9.7 Total Bilirubin 0.6 AST 23 ALT 20 L Alkaline Phosphatase 64 C-Reactive Protein 2.4 H Total Protein 7.9 Albumin 4.4 Globulin 3.5 Albumin/Globulin Ratio 1.3 Urine Color Urine Appearance Urine pH Ur Specific [place] Urine Protein Urine Glucose (UA) Urine Ketones Urine Occult Blood Urine Nitrate Urine Bilirubin Urine Urobilinogen Ur Leukocyte Esterase Urine RBC Urine WBC Urine Bacteria Ur Culture Indicated? Micro UA Comment 12/23/17 10:20 WBC RBC Hgb Hct MCV MCH MCHC RDW Plt Count Neut % (Auto) Lymph % (Auto) [place] % (Auto) Eos % (Auto) Baso % (Auto) Neut # (Auto) ESR Sodium Potassium Chloride Carbon Dioxide BUN Creatinine Estimated GFR BUN/Creatinine Ratio Glucose Lactate Calcium Total Bilirubin AST ALT Alkaline Phosphatase C-Reactive Protein Total Protein Albumin Globulin Albumin/Globulin Ratio Urine Color Yellow Urine Appearance Clear Urine pH 5.5 Ur Specific [place] 1.020 Urine Protein Negative Urine Glucose (UA) Negative Urine Ketones Negative Urine Occult Blood 1+ H Urine Nitrate Negative Urine Bilirubin Negative Urine Urobilinogen 0.2 Ur Leukocyte Esterase Negative Urine RBC 1-5/hpf Urine WBC None seen Urine Bacteria None seen Ur Culture Indicated? Cult not indicated Micro UA Comment Not Reportable Assessment & Plan Plan: Assessment/Plan Narrative: 1. Diskitis and osteomyelitis of L1-L2 Dr. Graff infectious disease specialist at [facility] recommends patient to undergo lumbar region biopsy so culture and sensitivity can be obtained before proceeding with antibiotic treatment. Dr. Graff at 0.8 out [place] patient was septic and hemodynamically unstable the patient might the subjected to antibiotic treatment before hand. In this case, the patient's clinical presentation warrants a more conservative and cautious approach. Biopsy should be done before initiating the antibiotics which are targeted based upon culture and sensitivity. 2. History of hypertension Will continue his lisinopril 3. Back pain Will provide Dilaudid q.1 hour. Dilaudid HOME HEALTH CARE COORDINATOR would would be better suited after the transfer patient to a [facility]. Time Spent With Patient Time with patient: Greater than 35 minutes (90 min which includes coordination of care and conversation with Dr. Graff infectious disease doctor and Dr. Keating at [facility] and transfer center's in [place] in attempt to transfer patient.)
--- NOTE | 2017-12-24 00:30 | PC.NURSE ---
Addendum entered by Surendra Maher R.N. 12/24/17 07:43: 0710: Pt up to nurses station and asking is this a hospital? When asked what he meant, he said, Just answer the question! 0720: Pt reportedly came up to nurses station and stated, I am leaving., refused to sign paperwork for leaving against medical advice, and did not allow saline lock to be removed. Coordinators notified by CNAs of patients departure. Original Note: Addendum entered by Surendra Maher R.N. 12/24/17 07:00: 0645: Pt asking why he has not been any food, states he is hungry. !/2 sandwich and milk given per his request. 0655: Pt asking why he hasn't been given his other medications. [facility] medaurea read to pt and time schedule; pt states this is not OK, and named several medications that are not on his list. Pt assured that MD will be notified. Original Note: Addendum entered by Surendra Maher R.N. 12/24/17 06:51: 0645: Has been resting quietly in bed since 4:45. Medicated q1hr with Dilaudid 1mg IV. Last medicated at 0640. Pt asking why he doesn't have some results yet, as he has been here for 24 hrs. Asking who do I speak to, to make a complaint? Name of nursing extension supervisor given to patient. Original Note: Addendum entered by Surendra Maher R.N. 12/24/17 04:04: 0340: Resting quietly in bed. Medicated for pain with Dilaudid 1mg IV. Original Note: Addendum entered by Surendra Maher R.N. 12/24/17 04:02: 0245: Medicated for pain with Dilaudid 1mg IV. Had conversation with pt and he acknowledged that staff was trying to help him and not cause him more distress. Resting quietly in bed. Original Note: Addendum entered by Surendra Maher R.N. 12/24/17 02:06: 0140: Dr. Jones notified by phone of pt comments that pain medication isn't working. No new orders given. 0145: IV re-started in rt AC by REYNA Benjamin. Dilaudid 1mg given IV. Original Note: Addendum entered by Surendra Maher R.N. 12/24/17 01:21: 0118: Pt calling, stated to SUPERVISOR OF RESEARCH that the pain medication is not working. 0125: Pt out to nurses station, angry, states I keep telling you this pain medication is not working! He stated to SUPERVISOR OF RESEARCH at nurses station, you don't give a shit! I saw the way you looked at me when you came! Coordinator notifed of pt mood and comments. 0135: IV re-start in progress by Cassidy ORELLANA. Original Note: Addendum entered by Surendra Maher R.N. 12/24/17 00:52: 0025: Dr. Jones notified by phone of pt anger about his Ibuprophen, pain medications, and his plan to leave AMA, and changing his mind; and his request for his blood pressure medication. 0045: Pt up to nurses station, unsteady on his feet and poor balance. Advised pt to go back to bed, but he declines, states he has been in bed all day. Lisinopril 5mg po given at this time. 0048: Medicated for pain with Dilaudid 1mg IV. 0055: Pt up to nurses station, states his IV site is painful. Plan is to re-start IV. Original Note: Stock Dealer Note: 2340: Pt up to nurses station, angry that he asked for Ibuprophen 3 hours ago- where is it?. Attempted to explain to pt that the medication has to be ordered by the MD, and go through a process before available. Pt cursing and walking away without listening to explanation. 2355: Pt in room walking around. Coordinator notified of pt's mood and statements. 0000: SUPERVISOR OF RESEARCH attempting to do vital signs, pt cursing at her and removed blood pressure cuff, did not allow her to take vital signs. 0020: Pt walking in halls, decided to leave AMA, then changed his mind. Coordinator here to talk to him.
[2017-12-24] MEDS: ACETAMINOPHEN 325 MG TABLET 650 MG PO ×2 (00:47→06:57)
[2017-12-24] MEDS: HYDROMORPHONE 2 MG INJ 1 MG IV ×7 (00:48→06:42)
[2017-12-24 01:56] VITALS: BP 151/76; PULSE 77; RESP 20; TEMP 36.6
--- NOTE | 2017-12-24 02:29 | PC.NURSE ---
At 0040 had Conversation with patient, explained current orders and patient disagreed , very angry and stated he was going to leave about 3 min. later patient decided not to leave. Security was called because of his verbal abuse towards staff. Patient came out of his room and apologized to all staff present.
--- NOTE | 2017-12-24 08:30 | CM.DPNOTE ---
DCP note: Was going to meet patient to do assessment, but left without medical advice. Nathalia Otto RN/Riding Teacher
--- NOTE | 2017-12-24 08:42 | PC.NURSE ---
Pt left floor during report this morning. Coordinator notified. Dr. Jones said if he's gone he is AMA. Discussed with Anjali RN Pug Machine Operator. Pt returned to floor about 08:00 Dr. Jones said he is discharged and he can go to ER. Pt's IV was d/c'd intact. Anjali and this RN spoke with Pt regarding options. Options again reiterated to Pt and he again stated he would just go home. 911 was also called d.t. the fact Pt left with IV intact. IV has been removed and Police have been called to state it is no longer necessary to look for Pt. Situation and options discussed with Dr. Jones, Anjali and this Nurse as well as with Pt. Pt refused to sign AMA form and left the building stating he was going home.
--- NOTE | 2017-12-24 12:38 | CM.DPC ---
DCP cont: Robyn from [facility] called to inquire if patient left AMA. Confirmed with her that patient did, and left this morning. Let her know that patient had been in ER prior, had stayed the night. Nathalia Otto RN/Farm Instructor
--- NOTE | 2017-12-24 17:27 | PM.DS.1 ---
History of Present Illness Chief complaint: left lower back, leg are in pain Narrative: Patient is a 52 years of age male that was seen in the emergency room [facility] earlier in the day. Patient was complaining of lower back pain. MRI of the lumbar spine was done and disclosed a diskitis at L1-L2 as well as osteomyelitis at L1 and L2 vertebrae. ER physician spoke to the orthopedic surgeon controls design engineer who conferred with Dr. Felder and advised that patient would be treated with IV antibiotics and no surgical intervention was planned. Orthopedic surgeon also called me to discuss this patient. He advised that I speak to the infectious disease doctor regarding methodology and treatment with antibiotic for the diskitis and osteomyelitis of the spine. In the meantime patient was sent to the floor for inpatient care. ER physician administered 1 dose of vancomycin intravenously before transfer to the medical surg floor. I contacted Dr. Barakat infectious Disease skin care consultant at [facility] and he advised the patient should undergo a biopsy of the osteomyelitis diskitis before proceeding with antibiotic. I contacted Interventional Radiology to have patient undergo the recommended biopsy. I discovered there is no interventional Radiology to do so. In view of standard of care which involves biopsy and definitive identification organism before proceeding with antibiotic treatment it was clear patient needed to be transferred to another facility. I spoke to the patient of our plans to transfer the patient so that we can proceed with the recommended biopsy before antibiotic treatment. Patient responded in a very uncooperative manner. He was also somewhat difficult with the nursing staff since he felt it was appropriate and acceptable to allow walk off the floor to smoke a cigarette though he is receiving IV injections of Dilaudid narcotic. Patient was accusatory toward me for not willing to continue the antibiotic regimen that was started by ER physician. Prior to speaking to the patient I was making arrangements through his insurance company [employer] the transfer to 1 of their facilities where they have the nurse surgical team and means to provide the care patient requires. Dr. Keating at [facility] contacted the neural surgical team of [facility] in [place] and spoke to an accepting physician Dr. leach and he was proceeding to make arrangements for transfer of patient to their facility. I went back to speak to the patient further and tried to obtain his medical history. He was simply annoyed and did wish to speak to me. I informed the hothouse worker my problem with the patient and she spoke to the patient as well. He was refusing to allow a transfer to another facility and expected us to provide appropriate care here. I repeatedly explained to him that we do not have an interventional radiologist to conduct the biopsy procedure before we initiate the antibiotic regimen identified most suitable based upon culture from biopsy. The hothouse worker came to bedside with me as I explained to the patient the danger of him not undergoing proper treatment for this diskitis and osteomyelitis of the L1-L2 spine region. Patient continued to be sarcastic and oppositional and unwilling to provide any further information. NOTE EARLY A.M. ON , APPROXIMATELY 6:00 A.M. PATIENT ABRUPTLY LEFT THE HOSPITAL AGAINST MEDICAL ADVICE. PATIENT DID NOT ALLOW THE NURSES TO REMOVE THE INTRAVENOUS CATHETER BEFORE DISCHARGE. PATIENT HAD BEEN PREVIOUSLY FOREWARNED ABOUT LEAVING THE ROOM AND THE FLOOR WHILE RECEIVING IV DILAUDID AND RISKING FALL SERIES INJURY, IS PARTICULARLY SINCE HE HAS THIS DISKITIS AND OSTEOMYELITIS OF SEVERAL LUMBAR VERTEBRAE. STATED, PATIENT HAS BEEN A VERY DIFFICULT PATIENT AND VERY UNCOOPERATIVE. HE WAS VERBALLY ABUSIVE THE NURSES GREATER PART OF THE NIGHT. I PREVIOUSLY ARRANGED WITH [facility] FOR PATIENT TO BE TRANSFERRED TO A [facility] FACILITY WITH A NEUROSURGEON AND INFECTIOUS DISEASE PHYSICIAN MANAGING THE PATIENT. SINCE PATIENT AMBULATED WITHOUT DIFFICULTY HAD NO EVIDENCE OF CORD COMPRESSION INTERFERING WITH FUNCTION THE PLAN WAS FOR PATIENT TO UNDERGO A BIOPSY OF 1 OF THESE 2 VERTEBRAE WITH THE OSTEOMYELITIS BEFORE STARTING IV ANTIBIOTICS. THIS WOULD BE VERY PRUDENT AND MORE EFFECTIVE MEANS OF ADDRESSING THE INFECTIOUS ORGANISM CAUSING THIS LOCALIZED INFECTION TO THE SPINE. SUCH RECOMMENDATION CAME DIRECTLY FROM DR. BARAKAT INFECTIOUS DISEASE SPECIALIST AT [facility]. NOTED BY DR. BARAKAT, 1 MAY CONSIDER STARTING AN ANTIBIOTIC SOONER THE PATIENT WAS CLINICALLY UNSTABLE IN A MEANINGFUL WAY. SEPTIC SHOCK AND SERIOUS CORD COMPRESSION SYMPTOMS FOR EXAMPLE MAY JUSTIFY A MUCH EARLIER ADMINISTRATION OF ANTIBIOTIC. NO RANGE MIN FOR FOLLOW-UP UNDER CIRCUMSTANCES WITH PATIENT ABRUPTLY LEAVING THE FLOOR AND WALKING OUT AMA. I DID NOT HAVE AN OPPORTUNITY TO EXAMINE THE PATIENT BEFORE DISCHARGE. I DID NOT SEE THE PATIENT PHYSICALLY ON .. Discharge Providers Date of admission: 12/23/17 14:13 Consults: 12/23/17 13:55 Consult to Orthopedic Surgery Stat Comment: Consulting Provider: Vishnu Shankar Reason for consultation: L1-L2 osteomyolitis-IM request Has provider been notified: Yes 12/23/17 14:55 Consult to Pastoral Services Routine Comment: PER PATIENT REQUEST 12/23/17 15:38 Consult to Physical Therapy Evaluate & Treat Comment: please provide tlso brace. Physician Instructions: Evaluate and Treat Discharge provider: Daron Jones MD Exam Vital Signs (past 8 hours): Oxygen Delivery Method Room Air Oxygen Flow Rate 0 Narrative Exam Narrative: I DID NOT HAVE OPPORTUNITY TO EXAMINE THE PATIENT ON BEFORE HE LEFT AGAINST MEDICAL ADVICE Objective Labs Result Diagrams: 12/23/17 08:25 12/23/17 08:25 Discharge Plan Discharge Plan Discharge comment: NO DISCHARGE PLAN PROVIDED TO THE PATIENT BEFORE HE LEFT AGAINST MEDICAL ADVICE Discharge Med Rec/Prescriptions Prescriptions: No Action meloxicam 7.5 mg tablet 7.5 mg PO DAILY Qty: 30 RF: 0 ibuprofen [Advil] 200 mg Tablet 400 mg PO QID PRN (Reason: Pain (Scale Score 1-3)) RF: 0 nortriptyline 25 mg capsule 25 mg PO BID RF: 0 lisinopril 5 mg tablet 5 mg PO DAILY RF: 0 metoprolol succinate 25 mg tablet extended release 24 hr 1 tab PO DAILY RF: 0 lorazepam 1 mg tablet 1 tab PO Q8H PRN (Reason: Anxiety) RF: 0 Discharge Orders: Discharge (Order); Ordered 12/24/17 Ordered By: Daron Jones Discharge Health Status Brief summary of current health status: Patient was able to walk out of the hospital without assistance. No evidence of a weakness to lower extremity with ambulation. Discharge Data Attending Provider: Daron Jones Admit Date/Time: 12/23/17 14:13 Discharges patient from system. Discharge Date/Time: 12/24/17 07:20
--- NOTE | 2017-12-24 17:36 | P.DS_ITS ---
History of Present Illness Chief complaint: left lower back, leg are in pain Narrative: Patient is a 52 years of age male that was seen in the emergency room [facility] earlier in the day. Patient was complaining of lower back pain. MRI of the lumbar spine was done and disclosed a diskitis at L1-L2 as well as osteomyelitis at L1 and L2 vertebrae. ER physician spoke to the orthopedic surgeon machine feeder floorperson who conferred with Dr. Felder and advised that patient would be treated with IV antibiotics and no surgical intervention was planned. Orthopedic surgeon also called me to discuss this patient. He advised that I speak to the infectious disease doctor regarding methodology and treatment with antibiotic for the diskitis and osteomyelitis of the spine. In the meantime patient was sent to the floor for inpatient care. ER physician administered 1 dose of vancomycin intravenously before transfer to the medical surg floor. I contacted Dr. Barakat infectious Disease furniture rental consultant at [facility] and he advised the patient should undergo a biopsy of the osteomyelitis diskitis before proceeding with antibiotic. I contacted Interventional Radiology to have patient undergo the recommended biopsy. I discovered there is no interventional Radiology to do so. In view of standard of care which involves biopsy and definitive identification organism before proceeding with antibiotic treatment it was clear patient needed to be transferred to another facility. I spoke to the patient of our plans to transfer the patient so that we can proceed with the recommended biopsy before antibiotic treatment. Patient responded in a very uncooperative manner. He was also somewhat difficult with the nursing staff since he felt it was appropriate and acceptable to allow walk off the floor to smoke a cigarette though he is receiving IV injections of Dilaudid narcotic. Patient was accusatory toward me for not willing to continue the antibiotic regimen that was started by ER physician. Prior to speaking to the patient I was making arrangements through his insurance company [employer] the transfer to 1 of their facilities where they have the nurse surgical team and means to provide the care patient requires. Dr. Keating at [facility] contacted the neural surgical team of [facility] in [place] and spoke to an accepting physician Dr. leach and he was proceeding to make arrangements for transfer of patient to their facility. I went back to speak to the patient further and tried to obtain his medical history. He was simply annoyed and did wish to speak to me. I informed the housekeeping and laundry team leader my problem with the patient and she spoke to the patient as well. He was refusing to allow a transfer to another facility and expected us to provide appropriate care here. I repeatedly explained to him that we do not have an interventional radiologist to conduct the biopsy procedure before we initiate the antibiotic regimen identified most suitable based upon culture from biopsy. The housekeeping and laundry team leader came to bedside with me as I explained to the patient the danger of him not undergoing proper treatment for this diskitis and osteomyelitis of the L1-L2 spine region. Patient continued to be sarcastic and oppositional and unwilling to provide any further information. NOTE EARLY A.M. ON , APPROXIMATELY 6:00 A.M. PATIENT ABRUPTLY LEFT THE HOSPITAL AGAINST MEDICAL ADVICE. PATIENT DID NOT ALLOW THE NURSES TO REMOVE THE INTRAVENOUS CATHETER BEFORE DISCHARGE. PATIENT HAD BEEN PREVIOUSLY FOREWARNED ABOUT LEAVING THE ROOM AND THE FLOOR WHILE RECEIVING IV DILAUDID AND RISKING FALL SERIES INJURY, IS PARTICULARLY SINCE HE HAS THIS DISKITIS AND OSTEOMYELITIS OF SEVERAL LUMBAR VERTEBRAE. STATED, PATIENT HAS BEEN A VERY DIFFICULT PATIENT AND VERY UNCOOPERATIVE. HE WAS VERBALLY ABUSIVE THE NURSES GREATER PART OF THE NIGHT. I PREVIOUSLY ARRANGED WITH [facility] FOR PATIENT TO BE TRANSFERRED TO A [facility] FACILITY WITH A NEUROSURGEON AND INFECTIOUS DISEASE PHYSICIAN MANAGING THE PATIENT. SINCE PATIENT AMBULATED WITHOUT DIFFICULTY HAD NO EVIDENCE OF CORD COMPRESSION INTERFERING WITH FUNCTION THE PLAN WAS FOR PATIENT TO UNDERGO A BIOPSY OF 1 OF THESE 2 VERTEBRAE WITH THE OSTEOMYELITIS BEFORE STARTING IV ANTIBIOTICS. THIS WOULD BE VERY PRUDENT AND MORE EFFECTIVE MEANS OF ADDRESSING THE INFECTIOUS ORGANISM CAUSING THIS LOCALIZED INFECTION TO THE SPINE. SUCH RECOMMENDATION CAME DIRECTLY FROM DR. BARAKAT INFECTIOUS DISEASE SPECIALIST AT [facility]. NOTED BY DR. BARAKAT, 1 MAY CONSIDER STARTING AN ANTIBIOTIC SOONER THE PATIENT WAS CLINICALLY UNSTABLE IN A MEANINGFUL WAY. SEPTIC SHOCK AND SERIOUS CORD COMPRESSION SYMPTOMS FOR EXAMPLE MAY JUSTIFY A MUCH EARLIER ADMINISTRATION OF ANTIBIOTIC. NO RANGE MIN FOR FOLLOW-UP UNDER CIRCUMSTANCES WITH PATIENT ABRUPTLY LEAVING THE FLOOR AND WALKING OUT AMA. I DID NOT HAVE AN OPPORTUNITY TO EXAMINE THE PATIENT BEFORE DISCHARGE. I DID NOT SEE THE PATIENT PHYSICALLY ON .. Discharge Providers Date of admission: 12/23/17 14:13 Consults: 12/23/17 13:55 Consult to Orthopedic Surgery Stat Comment: Consulting Provider: Vishnu Shankar Reason for consultation: L1-L2 osteomyolitis-IM request Has provider been notified: Yes 12/23/17 14:55 Consult to Pastoral Services Routine Comment: PER PATIENT REQUEST 12/23/17 15:38 Consult to Physical Therapy Evaluate & Treat Comment: please provide tlso brace. Physician Instructions: Evaluate and Treat Discharge provider: Daron Jones MD Exam Vital Signs (past 8 hours): Oxygen Delivery Method Room Air Oxygen Flow Rate 0 Narrative Exam Narrative: I DID NOT HAVE OPPORTUNITY TO EXAMINE THE PATIENT ON BEFORE HE LEFT AGAINST MEDICAL ADVICE Objective Labs Result Diagrams: 12/23/17 08:25 12/23/17 08:25 Discharge Plan Discharge Plan Discharge comment: NO DISCHARGE PLAN PROVIDED TO THE PATIENT BEFORE HE LEFT AGAINST MEDICAL ADVICE Discharge Med Rec/Prescriptions Prescriptions: No Action meloxicam 7.5 mg tablet 7.5 mg PO DAILY Qty: 30 RF: 0 ibuprofen [Advil] 200 mg Tablet 400 mg PO QID PRN (Reason: Pain (Scale Score 1-3)) RF: 0 nortriptyline 25 mg capsule 25 mg PO BID RF: 0 lisinopril 5 mg tablet 5 mg PO DAILY RF: 0 metoprolol succinate 25 mg tablet extended release 24 hr 1 tab PO DAILY RF: 0 lorazepam 1 mg tablet 1 tab PO Q8H PRN (Reason: Anxiety) RF: 0 Discharge Orders: Discharge (Order); Ordered 12/24/17 Ordered By: Daron Jones Discharge Health Status Brief summary of current health status: Patient was able to walk out of the hospital without assistance. No evidence of a weakness to lower extremity with ambulation. Discharge Data Attending Provider: Daron Jones Admit Date/Time: 12/23/17 14:13 Discharges patient from system. Discharge Date/Time: 12/24/17 07:20
== END 2017-12-24 07:20 | disposition left against medical advice (07) | DRG 552 ==
LOC: ED 12:57 → AC 14:13
PROVIDERS: Admitting Provider Internal Medicine; Emergency Provider Emergency Medicine; Visit Provider Internal Medicine
DX: M46.46 Discitis, unspecified, lumbar region (principal); M46.26 Osteomyelitis of vertebra, lumbar region; I10 Essential (primary) hypertension; F17.210 Nicotine dependence, cigarettes, uncomplicated; R31.0 Gross hematuria
CPT/HCPCS: 36415; 36591; 72158; 74176; 80053; 81001; 83605; 85025; 85651; 86140; 87040; 96365; 96375; 96376; 99283; 99285; J1170; J1885; J2060; J3370

== ENCOUNTER 2018-01-05 15:21 | Emergency (ER) | payer OTHER, SELFPAY ==
[2017-12-23 14:43] VITALS: BMI 25.8
[2018-01-05 15:25] VITALS: BP 148/75; PULSE 75; RESP 13; TEMP 37.2; O2SAT 98
--- NOTE | 2018-01-05 16:06 | PC.NURSE ---
erma hale, trista here to check pick line
--- NOTE | 2018-01-05 16:09 | ED.EXTPRO ---
HPI - Extremity Problem <Netta Lopez PA-C - Last Filed: 01/05/18 21:12> General Chief complaint: Extremity Problem,Nontraumatic Stated complaint: States air in pic line Time Seen by Provider: 01/05/18 16:09 Source: patient Mode of arrival: ambulatory Limitations: no limitations History of Present Illness HPI Narrative: This 52-year-old female comes in today due to problems with his PICC line. This was put in a couple of weeks ago to treat osteomyelitis/diskitis. He has been administering antibiotics at home daily. He states that after showering, he accidentally pulled off the hub part of the tubing, then thought there was some air or water there and became concerned. He states that he is feeling fine and denies any new fever, worsening pain or other new complaints on systems review Related Data Home Medications Medication Instructions Recorded Confirmed ibuprofen [Advil] 400 mg PO QID PRN 12/14/17 01/25/18 aspirin 81 mg tablet,delayed 81 mg PO DAILY 01/19/18 01/25/18 release ceftriaxone 2 gram solution for 2 gram IM DAILY 01/19/18 01/25/18 injection hydroxyzine pamoate 50 mg PO TID 01/25/18 01/25/18 Previous Rx's Medication Instructions Recorded lorazepam 1 mg tablet 1 mg PO Q8H PRN #60 tab 01/11/18 buspirone 5 mg tablet 5 mg PO BID #60 tab 01/19/18 lisinopril 5 mg tablet 5 mg PO DAILY #30 tab 01/19/18 metoprolol succinate ER 25 mg 25 mg PO DAILY #30 tab 01/19/18 tablet,extended release 24 hr oxycodone 10 mg tablet 10 mg PO Q8H #90 tab 01/19/18 meclizine 25 mg PO Q4-6H PRN #20 tab 01/27/18 meloxicam 7.5 mg tablet 7.5 mg PO BID PRN #60 tab 02/05/18 Allergies Allergy/AdvReac Type Severity Reaction Status Date / Time No Known Drug Allergies Allergy Verified 01/26/18 12:03 Exam <Netta Lopez PA-C - Last Filed: 01/05/18 21:12> Narrative Exam Narrative: GENERAL APPEARANCE: Patient sitting comfortably, in no distress. LUNGS: Clear to auscultation bilaterally. HEART: Rate and rhythm regular without murmur, normal S1 and S2, no S3 or S4. DERM: Picc line in place L. UE, no erythema. Initial Vital Signs Initial Vital Signs: Vital Signs Temperature 98.9 F 01/05/18 15:25 Pulse Rate 75 01/05/18 15:25 Respiratory Rate 13 01/05/18 15:25 Blood Pressure 148/75 H 01/05/18 15:25 Pulse Oximetry 98 01/05/18 15:25 <Awais Dahl MD - Last Filed: 02/17/18 07:31> Initial Vital Signs Initial Vital Signs: Vital Signs Temperature 98.9 F 01/05/18 15:25 Pulse Rate 75 01/05/18 15:25 Respiratory Rate 13 01/05/18 15:25 Blood Pressure 148/75 H 01/05/18 15:25 Pulse Oximetry 98 01/05/18 15:25 Course <Netta Lopez PA-C - Last Filed: 01/05/18 21:12> Additional Information: DI nurse who places PICC lines has been in and states that this is functioning fine. He reviewed procedures for proper use with patient and gave him written handout on this. He missed his dose of antibiotics yesterday so administered here. Vital Signs - 8 hr 01/05/18 15:25 Temperature 98.9 F Pulse Rate 75 Respiratory Rate 13 Blood Pressure 148/75 H Pulse Oximetry 98 <Awais Dahl MD - Last Filed: 02/17/18 07:31> Vital Signs - 8 hr 01/05/18 15:25 Temperature 98.9 F Pulse Rate 75 Respiratory Rate 13 Blood Pressure 148/75 H Pulse Oximetry 98 Discharge Plan Departure Patient Disposition: Home Clinical Impression: PIC line (peripherally inserted central catheter) flush Discharge Date/Time: 01/05/18 16:42 Interventions: ED Discharge Assessment Last Done: 01/05/18 16:42 Instructions: Peripherally Inserted Central Catheter Activity Restrictions/Additional Instructions: Please follow the instructions that the nurse gave you for properly caring for, flushing your line, and administering your antibiotic. Follow up with your outside providers as you have already scheduled. Prescriptions: No Action aspirin 81 mg tablet,delayed release (DR/EC) 81 mg PO DAILY RF: 0 ceftriaxone 2 gram recon soln 2 gram IM DAILY RF: 0 buspirone 5 mg tablet 5 mg PO BID Qty: 60 RF: 5 lisinopril 5 mg tablet 5 mg PO DAILY Qty: 30 RF: 5 metoprolol succinate 25 mg tablet extended release 24 hr 25 mg PO DAILY Qty: 30 RF: 5 oxycodone 10 mg tablet 10 mg PO Q8H Qty: 90 RF: 0 lorazepam 1 mg tablet 1 mg PO Q8H PRN (Reason: Anxiety) Qty: 60 RF: 0 meloxicam 7.5 mg tablet 7.5 mg PO BID PRN (Reason: Back Pain) Qty: 60 RF: 0 ibuprofen [Advil] 200 mg Tablet 400 mg PO QID PRN (Reason: Pain (Scale Score 1-3)) RF: 0 hydroxyzine pamoate 50 mg Capsule 50 mg PO TID RF: 0 meclizine 25 mg tablet 25 mg PO Q4-6H PRN (Reason: vertigo) Qty: 20 RF: 0 Referrals: Milli Levi DO [Primary Care Provider] - <Awais Dahl MD - Last Filed: 02/17/18 07:31> [facility]: I was present in the ER at the time of this patient's care. I was available for verbal consultation or to see the patient directly if required. I agree with the assessment and treatment plan.
--- NOTE | 2018-01-05 16:38 | PC.NURSE ---
pt concern r/t unable to flush PIC line, looks like there is air in tubing. Blood return immediate, flushed easily, PIC Nurse contacted for pt teaching
== END 2018-01-05 16:42 | disposition home or self-care (01) ==
PROVIDERS: Emergency Provider Internal Medicine; Family Provider Family Medicine; PCP Family Medicine
DX: Z45.2 Encounter for adjustment and management of vascular access device (principal)
CPT/HCPCS: 99282

== ENCOUNTER 2018-01-10 18:55 | Emergency (ER) | payer OTHER, SELFPAY ==
[2017-12-23 14:43] VITALS: BMI 25.8
[2018-01-10 19:24] VITALS: BP 153/85; PULSE 93; RESP 18; TEMP 36.9; O2SAT 99; BMI 25.0
--- NOTE | 2018-01-10 19:48 | ED.BACK ---
HPI - Back Pain/Injury General Chief Complaint: Back Pain/Injury Stated Complaint: INFECTION IN BACK Time Seen by Provider: 01/10/18 19:48 Source: patient Mode of arrival: ambulatory Limitations: no limitations History of Present Illness HPI Narrative: Patient is a 52-year-old male who presents with back pain and chest pain. He was diagnosed with osteomyelitis on December 23 of his lumbar spine. Admitted to [facility], [facility], went to [facility] the following day and then transferred to [facility]. He now has a PICC line for 6 weeks of antibiotic. Today he is experiencing worsening back pain and some numbness on his left thigh. He has no urinary incontinence no stool incontinence. His legs used to give out on him before this was diagnosed he says that has gotten much better. He has been doing a lot of walking lately now that he is out of the hospital. He also was experiencing some chest pressure. He has a history of CABG x4 vessels. He denies any shortness of breath or nausea no radiation of pain. Related Data Home Medications Medication Instructions Recorded Confirmed ibuprofen [Advil] 400 mg PO QID PRN 12/14/17 01/05/18 lisinopril 5 mg PO DAILY 12/23/17 01/05/18 lorazepam 1 tab PO Q8H PRN 12/23/17 01/05/18 metoprolol succinate 1 tab PO DAILY 12/23/17 01/05/18 nortriptyline 25 mg PO BID 12/23/17 01/05/18 meloxicam 7.5 mg PO DAILY PRN 01/05/18 01/05/18 Previous Rx's Medication Instructions Recorded hydrocodone-acetaminophen 1 tab PO Q6H PRN #10 tab 01/10/18 Allergies Allergy/AdvReac Type Severity Reaction Status Date / Time No Known Drug Allergies Allergy Verified 12/14/17 15:18 Review of Systems Review of Systems All systems reviewed & are unremarkable except as noted in HPI and below Constitutional Denies chills, Denies fever(s), Denies lethargy and Denies weakness Cardiovascular Reports as per HPI, Denies dyspnea and Denies dyspnea on exertion Respiratory Denies cough, Denies dyspnea, Denies dyspnea on exertion and Denies wheezing Gastrointestinal Gastrointestinal: Denies abdominal pain, Denies change in bowel habits, Denies diarrhea, Denies nausea and Denies vomiting Genitourinary Denies hematuria, Denies flank pain, Denies urinary incontinence and Denies urinary urgency Musculoskeletal Reports system reviewed and no additional complaints, except as docu Integumentary/Breasts Denies pruritus, Denies erythema, Denies rash and Denies wounds Neurologic Denies weakness Allergic/Immunologic Denies wheezing PFSH Medical History Coronary artery disease (Acute) Discitis (Acute) 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 HEENT: Head atraumatic,EOMI, pupils reactive, face symmetric, CARDIOVASCULAR: Regular rate and rhythm without murmurs, rubs or gallops. RESPIRATORY: Breath sounds equal bilaterally, no wheezes rales or rhonchi. ABDOMEN: Soft, nontender. Normoactive bowel sounds all 4 quadrants. No guarding or rebound. RECTAL: Good rectal tone BACK: Midline tenderness in lumbar region no step-offs no rash : No CVA tenderness EXTREMITIES: Normal range of motion, no clubbing or edema. Neurovascularly intact NEUROLOGICAL: Alert and oriented x4.Normal gait and speech. Cranial nerves II through XII grossly intact. SKIN: Warm, dry, no laceration, no petechiae, no rashes or lesions. Course Orders Ordered: ED Orders 01/10/18 19:49 XR chest 1V Stat EKG-12 Lead Stat 01/10/18 20:30 C-Reactive Protein Quant Stat Complete Blood Count AUTO DIFF Stat Comprehensive Metabolic Panel Stat Erythrocyte Sedimentation Rate Stat Lipase Stat Partial Thromboplastin Time Stat Prothrombin Time INR Stat Troponin & CK Cardiac Panel Stat 01/10/18 21:12 CT lumbar spine w con Stat 01/10/18 22:06 Urine Microscopic Stat 01/10/18 22:32 Troponin I Stat Discontinued Medications Hydrocodone Bitart/Acetaminophen (Vicodin Prepack) 1 bottle MISC SEEINSTR ONE Stop: 01/10/18 23:22 Last Admin: 01/10/18 23:37 Dose: 1 bottle Aspirin (Aspirin Chew) 324 mg PO NOW ONE Stop: 01/10/18 19:49 Last Admin: 01/10/18 20:15 Dose: 324 mg Hydromorphone HCl (Dilaudid) 0.5 mg IV NOW ONE Stop: 01/10/18 19:49 Last Admin: 01/10/18 20:38 Dose: 0.5 mg Hydromorphone HCl (Dilaudid) 1 mg IV NOW ONE Stop: 01/10/18 21:13 Last Admin: 01/10/18 22:47 Dose: 1 mg Sodium Chloride (Normal Saline 0.9%) 1,000 mls @ 150 mls/hr IV CONT LEONA Last Admin: 01/10/18 20:37 Dose: 150 mls/hr Lorazepam (Ativan) 1 mg PO NOW ONE Stop: 01/10/18 23:13 Last Admin: 01/10/18 23:20 Dose: 1 mg Vital Signs - 8 hr 01/10/18 22:12 01/10/18 23:47 Pulse Rate 89 83 Respiratory Rate 20 18 Blood Pressure 119/97 H Blood Pressure [Right Arm] 144/72 H Pulse Oximetry 100 97 MDM - Back Pain/Injury Medical Records Attestation: I reviewed the patient's medical records. [facility] records revealed that he had an echocardiogram 12/26/2017 which showed mild to moderately decreased left ventricular systolic function EF 35.6%. Basal and mid anterior lateral wall and basal and mid inferior wall and basal mid inferior lateral wall are abnormal. He apparently did have some chest discomfort as well he was in the hospital he had a normal troponin but segmental wall more should motion abnormalities. Patient did leave against medical advice. He also had blood cultures which grew strep he is discharged on Rocephin for 6 weeks with a PICC line. Lab Data Attestation: I reviewed the patient's lab results. Result diagrams: 01/10/18 20:30 01/10/18 20:30 Lab Results 01/10/18 01/10/18 01/10/18 Range/Units 20:30 20:30 20:30 WBC 10.0 (4.5-11.0) X10^3/uL RBC 3.84 L (4.5-5.9) X10^6/uL Hgb 11.6 L (13.5-17.5) g/dL Hct 33.2 L (41-53) % MCV 86.3 (80-100) fL MCH 30.2 (26-34) PG MCHC 35.0 (30-36) % RDW 12.7 (11.6-14.8) % Plt Count 238 (150-400) X10^3/uL Neut % (Auto) 73.1 (50-75) % Lymph % (Auto) 16.8 L (25-40) % Stanton % (Auto) 5.9 (3-14) % Eos % (Auto) 3.2 (2-4) % Baso % (Auto) 1.0 (0-2) % Neut # (Auto) 7300 H (2297-3785) /uL ESR 31 H (0-15) MM/HR PT 12.8 H (10.1-12.7) SECONDS INR 1.2 (0.9-1.3) APTT 32 (26.4-36.2) SECONDS Sodium (137-145) mmol/L Potassium (3.4-5.1) mmol/L Chloride (98-107) mmol/L Carbon Dioxide (22-32) mmol/L BUN (9-20) mg/dL Creatinine (0.66-1.25) mg/dL Estimated GFR (>60) mL/min BUN/Creatinine Ratio (6-22) Glucose (70-100) mg/dL Calcium (8.4-10.2) mg/dL Total Bilirubin (0.2-1.3) mg/dL AST (17-59) IU/L ALT (21-72) IU/L Alkaline Phosphatase (38-126) U/L Total Creatine Kinase (55-170) U/L Troponin I (0.01-0.034) ng/mL C-Reactive Protein (<1.0) mg/dL Total Protein (6.3-8.2) g/dL Albumin (3.5-5.0) g/dL Globulin (1.7-4.1) g/dL Albumin/Globulin Ratio (1.0-2.8) Lipase (23-300) U/L Urine RBC (0-5/HPF) Urine WBC (0-5/HPF) Urine Bacteria (None) Ur Culture Indicated? Micro UA Comment 01/10/18 01/10/18 01/10/18 Range/Units 20:30 22:06 22:32 WBC (4.5-11.0) X10^3/uL RBC (4.5-5.9) X10^6/uL Hgb (13.5-17.5) g/dL Hct (41-53) % MCV (80-100) fL MCH (26-34) PG MCHC (30-36) % RDW (11.6-14.8) % Plt Count (150-400) X10^3/uL Neut % (Auto) (50-75) % Lymph % (Auto) (25-40) % Stanton % (Auto) (3-14) % Eos % (Auto) (2-4) % Baso % (Auto) (0-2) % Neut # (Auto) (2657-8705) /uL ESR (0-15) MM/HR PT (10.1-12.7) SECONDS INR (0.9-1.3) APTT (26.4-36.2) SECONDS Sodium 143 (137-145) mmol/L Potassium 3.7 (3.4-5.1) mmol/L Chloride 103 (98-107) mmol/L Carbon Dioxide 29 (22-32) mmol/L BUN 21 H (9-20) mg/dL Creatinine 0.70 (0.66-1.25) mg/dL Estimated GFR > 60.0 (>60) mL/min BUN/Creatinine Ratio 30.0 H (6-22) Glucose 96 (70-100) mg/dL Calcium 9.4 (8.4-10.2) mg/dL Total Bilirubin 0.3 (0.2-1.3) mg/dL AST 16 L (17-59) IU/L ALT 20 L (21-72) IU/L Alkaline Phosphatase 61 (38-126) U/L Total Creatine Kinase 38 L (55-170) U/L Troponin I < 0.012 < 0.012 (0.01-0.034) ng/mL C-Reactive Protein 0.6 (<1.0) mg/dL Total Protein 7.4 (6.3-8.2) g/dL Albumin 4.3 (3.5-5.0) g/dL Globulin 3.1 (1.7-4.1) g/dL Albumin/Globulin Ratio 1.4 (1.0-2.8) Lipase 70 (23-300) U/L Urine RBC None seen (0-5/HPF) Urine WBC None seen (0-5/HPF) Urine Bacteria None seen (None) Ur Culture Indicated? Cult not indicated Micro UA Comment Microscopic normal Urine Dip Bedside Urine Glucose Negative Bedside Urine Bilirubin - Negative Bedside Urine Ketone - Negative Urine Specific [place] 1.015 Bedside Urine Occult Blood +/- Bedside Urine pH 6.0 Bedside Urine Protein - Negative Bedside Urine Urobilinogen - Negative Bedside Urine Nitrite - Negative Bedside Urine Leukocytes - Negative Esterase Imaging Data CT L-spine with contrast: Radiologist's impression: PROCEDURE: CT LUMBAR SPINE W CON INDICATIONS: left leg numbness medially, known osteomyelitis TECHNIQUE: After the administration of intravenous Isovue contrast, 3 mm thick sections acquired through the levels of interest. Sagittal and coronal reformats were then constructed. For radiation dose reduction, the following was used: automated exposure control. COMPARISON: [facility], MR, MR LUMBAR SPINE WO/W CON, 12/23/2017, 11:13. FINDINGS: Image quality: Excellent. Bones: Loss of L1-L2 disc height. There is endplate sclerosis and endplate erosive changes noted in the L1 and L2 vertebral bodies adjacent to L1-L2 disc compatible with known discitis-osteomyelitis which has progressed in the interval since prior is MRI obtained 12/23/18. There is a pathologic fracture involving the left lateral margin of the L1 vertebral body. A there is severe left L4-L2 neuroforaminal narrowing with flattening deformity exiting left L1 nerve root. Moderate L5-S1 degenerative changes are noted. Mild L3-L4-L4-L5 degenerative changes noted. Mild L4-L5 and L5-S1 facet arthropathy.. Soft tissues: Edema and thickening of the left psoas muscle adjacent to the L1-L2 disc noted may be related to cellulitis. Fluid without peripheral enhancement is noted anterior to the L1 and L2 vertebral bodies No psoas abscess identified. Scattered atherosclerotic calcifications are noted in the abdominal and pelvic vasculature. IMPRESSION: 1. L1-L2 discitis-osteomyelitis which has progressed in interval since prior MRI obtained 12/23/17. 2. Nondisplaced fracture involving the left lateral margin of the L1 vertebral body. 3. Left psoas edema and thickening possibly related to infectious cellulitis. 4. No abscess identified. Please note epidural abscess is not excluded by this study. 5. Fluid in the paraspinous soft tissues anterior to the L1 and L2 vertebral bodies Dictated by: Gris Hassan MD, PhD on 01/10/2018 at 22:06 ECG Data Attestation: I personally reviewed and interpreted this ECG as follows: Prior ECG tracings: available for review Interpretation: EKG 1.: Normal sinus rhythm rate 8 T-waves are bigger and precordial leads he also has of biphasic T-wave in V2 is new from previous EKGs. Compared to [facility] he had T-wave inversions worse in lead 3 and large in T-waves anterior septal leads no ST elevations or depressions. T-waves today actually are improved or similar. The to show some biphasic. EKG 2. Sinus rhythm rate 88 remains unchanged from previous EKG MDM Narrative Medical decision making narrative: Patient is really here more for his back pain and left leg pain he had minimal chest pain and is not complaining of chest pain.. According is [facility] records he actually was having left leg pain and chest pain at the time of discharge. He has good rectal tone today he is ambulatory at this time I do not have a high suspicion for cauda equina. CT today does show L1 facture. He has improvement in his CRP and ESR. He is afebrile I do not suspect new or worsening infection. He previously had oxycodone for his back pain but he is now out of them. Wanting something more for pain. He has appointment with his primary doctor [facility] next week. I discussed with him he needs to follow up there and get pain medications from primary from now on. Patient is ambulatory to the restroom no difficulty feels ready and able to go home. I discussed all findings with the patient, Education has been performed regarding treatment plan, diagnosis, warning signs and symptoms and all concerns have been addressed. Verbally agree with and understood all of the above. Discharge Plan Departure Patient Disposition: Home Clinical Impression: L1 vertebral fracture, Acute osteomyelitis of lumbar spine Discharge Date/Time: 01/10/18 23:47 Interventions: ED Discharge Assessment Last Done: 01/10/18 23:47 Instructions: DI for Vertebral Fracture Activity Restrictions/Additional Instructions: *You have been diagnosed with L1 vertebral fracture, osteomyelitis *What to do: Heat or ice to help with pain. Still recommended that you see Cardiology and have further cardiac stress testing. 2-blood test today which are reassuring however if continuing to have more chest pain he will need a stress test and cardiology evaluation. *Continue to take medications as directed Elma 1 tablet every 6 hr if needed for pain *Follow up with your primary care provider in 2-3 days *Return to ER if you should have leg weakness, urinary incontinence, stool incontinence, fever or any new, worsening or concerning symptoms CONTROLLED SUBSTANCE DISCHARGE (Narcotoic/benzodiazepine/Flexeril/Phenergan) 1. You have been prescribed narcotic medications, it does have acetaminophen/Tylenol/paracetamol in it so do not take extra Tylenol or Tylenol containing products 2. Please understand that we cannot provide further refills of narcotics, benzodiazepines or controlled substances through the ED and her pain management will need to be through your provider. 3. While on these medications you cannot drive or operate heavy machinery. 4. You cannot sign legal documents or perform any duties such as this. 5. As long as you're taking opiate pain medications he should also be taking a stool softener such as Colace, Dulcolax, MiraLAX or prune juice, to help avoid constipation. Prescriptions: New hydrocodone-acetaminophen 5-325 mg tablet 1 tab PO Q6H PRN (Reason: pain) Qty: 10 RF: 0 No Action ibuprofen [Advil] 200 mg Tablet 400 mg PO QID PRN (Reason: Pain (Scale Score 1-3)) RF: 0 nortriptyline 25 mg capsule 25 mg PO BID RF: 0 lisinopril 5 mg tablet 5 mg PO DAILY RF: 0 metoprolol succinate 25 mg tablet extended release 24 hr 1 tab PO DAILY RF: 0 lorazepam 1 mg tablet 1 tab PO Q8H PRN (Reason: Anxiety) RF: 0 meloxicam 7.5 mg tablet 7.5 mg PO DAILY PRN (Reason: Pain, Moderate) RF: 0
--- NOTE | 2018-01-10 19:49 | DI.RAD.S_ITS ---
PROCEDURE: XR CHEST 1V INDICATIONS: chest pain TECHNIQUE: One view of the chest was acquired. COMPARISON: [facility], , CHEST 2 VIEW, 08/14/2010, 6:27. None. FINDINGS: Surgical changes and devices: Status post CABG procedure. Lungs and pleura: No pleural effusions or pneumothorax. Lungs are clear. Mediastinum: Mediastinal contours appear normal. Heart size is normal. Bones and chest wall: No suspicious bony lesions. Overlying soft tissues appear unremarkable. IMPRESSION: No acute cardiopulmonary disease process. Dictated by: Gris Hassan MD, PhD on 01/10/2018 at 20:06 Approved by: Gris Hassan MD, PhD on 01/10/2018 at 20:07
[2018-01-10] MEDS: ASPIRIN 81 MG TAB 324 MG PO (20:15)
[2018-01-10] MEDS: SODIUM CHLORIDE 0.9% 1,000 ML 150 ML IV (20:37)
[2018-01-10] MEDS: HYDROMORPHONE 1 MG INJ 0.5 MG IV (20:38)
[2018-01-10 20:42] LABS: Add Manual Diff / Slide Review NO; Eosinophils Percent Auto 3.2 % (2-4); Hematocrit 33.2 % (41-53); Hemoglobin 11.6 g/dL (13.5-17.5); Lymphocytes Percent Auto 16.8 % (25-40); Mean Corpuscular Hemoglobin 30.2 PG (26-34); Mean Corpuscular Volume 86.3 fL (80-100); Monocytes Percent Auto 5.9 % (3-14); Neutrophils Absolute Auto 7300 /uL (3000-5900); Neutrophils Percent Auto 73.1 % (50-75); Platelet Count 238 X10^3/uL (150-400); Red Blood Cell Count 3.84 X10^6/uL (4.5-5.9); Red Cell Distribution Width 12.7 % (11.6-14.8)
[2018-01-10 20:48] LABS: INR 1.2 (0.9-1.3); Prothrombin Time 12.8 SECONDS (10.1-12.7)
[2018-01-10 20:50] LABS: PTT Partial Thromboplastin Tim 32 SECONDS (26.4-36.2)
[2018-01-10 20:54] LABS: Alanine Aminotransferase 20 IU/L (21-72); Albumin 4.3 g/dL (3.5-5.0); Albumin Globulin Ratio 1.4 (1.0-2.8); Alkaline Phosphatase 61 U/L (38-126); Aspartate Aminotransferase 16 IU/L (17-59); Bilirubin Total 0.3 mg/dL (0.2-1.3); Blood Urea Nitrogen 21 mg/dL (9-20); C-Reactive Protein Quant 0.6 mg/dL (<1.0); Calcium 9.4 mg/dL (8.4-10.2); Carbon Dioxide 29 mmol/L (22-32); Chloride 103 mmol/L (98-107); Creatine Kinase 38 U/L (55-170); Estimated Glomerular Filt Rate > 60.0 mL/min (>60); Globulin 3.1 g/dL (1.7-4.1); Glucose 96 mg/dL (70-100); HEMOLYSIS < 15 (0-50); Lipase 70 U/L (23-300); Potassium 3.7 mmol/L (3.4-5.1); Sodium 143 mmol/L (137-145); Total Protein 7.4 g/dL (6.3-8.2)
[2018-01-10 21:03] LABS: Erythrocyte Sedimentation Rate 31 MM/HR (0-15)
[2018-01-10 21:04] LABS: Troponin I < 0.012 ng/mL (0.01-0.034)
--- NOTE | 2018-01-10 21:12 | DI.CT.S_ITS ---
PROCEDURE: CT LUMBAR SPINE W CON INDICATIONS: left leg numbness medially, known osteomyelitis TECHNIQUE: After the administration of intravenous Isovue contrast, 3 mm thick sections acquired through the levels of interest. Sagittal and coronal reformats were then constructed. For radiation dose reduction, the following was used: automated exposure control. COMPARISON: [facility], MR, MR LUMBAR SPINE WO/W CON, 12/23/2017, 11:13. FINDINGS: Image quality: Excellent. Bones: Loss of L1-L2 disc height. There is endplate sclerosis and endplate erosive changes noted in the L1 and L2 vertebral bodies adjacent to L1-L2 disc compatible with known discitis-osteomyelitis which has progressed in the interval since prior is MRI obtained 12/23/18. There is a pathologic fracture involving the left lateral margin of the L1 vertebral body. A there is severe left L4-L2 neuroforaminal narrowing with flattening deformity exiting left L1 nerve root. Moderate L5-S1 degenerative changes are noted. Mild L3-L4-L4-L5 degenerative changes noted. Mild L4-L5 and L5-S1 facet arthropathy.. Soft tissues: Edema and thickening of the left psoas muscle adjacent to the L1-L2 disc noted may be related to cellulitis. Fluid without peripheral enhancement is noted anterior to the L1 and L2 vertebral bodies No psoas abscess identified. Scattered atherosclerotic calcifications are noted in the abdominal and pelvic vasculature. IMPRESSION: 1. L1-L2 discitis-osteomyelitis which has progressed in interval since prior MRI obtained 12/23/17. 2. Nondisplaced fracture involving the left lateral margin of the L1 vertebral body. 3. Left psoas edema and thickening possibly related to infectious cellulitis. 4. No abscess identified. Please note epidural abscess is not excluded by this study. 5. Fluid in the paraspinous soft tissues anterior to the L1 and L2 vertebral bodies Dictated by: Gris Hassan MD, PhD on 01/10/2018 at 22:06 Approved by: Gris Hassan MD, PhD on 01/10/2018 at 22:13
[2018-01-10 22:11] LABS: Bacteria Urine None Seen; RBC Urine None Seen (0-5/HPF); WBC Urine None Seen (0-5/HPF)
[2018-01-10 22:12] VITALS: BP 144/72; PULSE 89; RESP 20; O2SAT 100
[2018-01-10 22:19] LABS: Culture Indicated Urine Cult Not Indicated; Urine Comments Microscopic Normal
[2018-01-10] MEDS: HYDROMORPHONE 2 MG INJ 1 MG IV (22:47)
[2018-01-10 23:11] LABS: Troponin I < 0.012 ng/mL (0.01-0.034)
[2018-01-10] MEDS: LORazepam 0.5 MG TABLET 1 MG PO (23:20)
[2018-01-10] MEDS: HYDROCODONE/ACET 5/325 PREPACK 1 BOTTLE MISC (23:37)
[2018-01-10 23:47] VITALS: BP 119/97; PULSE 83; RESP 18; O2SAT 97
--- NOTE | 2018-01-24 16:24 | PC.NURSE ---
NS inf stopped at time of discharge 300ml infused
== END 2018-01-10 23:47 | disposition home or self-care (01) ==
PROVIDERS: Emergency Provider Emergency Medicine; Family Provider Family Medicine; PCP Family Medicine
DX: S32.019A Unspecified fracture of first lumbar vertebra, initial encounter for closed fracture (principal); M46.26 Osteomyelitis of vertebra, lumbar region
CPT/HCPCS: 36415; 71045; 72132; 80053; 81003; 81015; 82550; 82553; 83690; 84484; 85025; 85610; 85651; 85730; 86140; 93005; 96361; 96374; 96376; 99283; 99285; J1170; Q9967

== ENCOUNTER 2018-01-20 18:04 | Emergency (ER) | payer OTHER, SELFPAY ==
[2018-01-11 08:55] VITALS: BMI 25.8
[2018-01-20 18:10] VITALS: BP 122/78; PULSE 70; RESP 14; TEMP 36.3; O2SAT 98
[2018-01-20 19:40] VITALS: BP 157/89; PULSE 75; RESP 16; O2SAT 100
[2018-01-20] MEDS: cefTRIAXone 2,000 MG VIAL 2000 MG IM (20:25)
--- NOTE | 2018-01-20 20:37 | ED.RECABL ---
HPI - Recheck/Abnormal Lab/Rx <JACLYN Barragan - Last Filed: 01/20/18 20:53> General Chief Complaint: Recheck/Abnormal Lab/Rx Stated Complaint: STATES PICC LINE CAME OUT Time Seen by Provider: 01/20/18 19:29 Source: patient Mode of arrival: ambulatory Limitations: no limitations History of Present Illness HPI narrative: Patient presents for chief complaint of ?my PICC line fell out.? Patient states he is getting IV antibiotics. Chart review illustrate to history of osteomyelitis. Patient states he did not notice getting his antibiotics for, does not know how his PICC line came out, states he did not pull on it. He denies any bleeding or shortness of breath. Chart review illustrate that patient gets two g IV ceftriaxone daily. Patient states he would ?like to get a dose of medication and get out of here? Related Data Home Medications Medication Instructions Recorded Confirmed ibuprofen [Advil] 400 mg PO QID PRN 12/14/17 01/19/18 aspirin 81 mg tablet,delayed 81 mg PO DAILY 01/19/18 01/19/18 release ceftriaxone 2 gram solution for 2 gram IM DAILY 01/19/18 01/19/18 injection meloxicam 7.5 mg tablet 7.5 mg PO DAILY PRN tab 01/19/18 Previous Rx's Medication Instructions Recorded lorazepam 1 mg tablet 1 mg PO Q8H PRN #60 tab 01/11/18 buspirone 5 mg tablet 5 mg PO BID #60 tab 01/19/18 lisinopril 5 mg tablet 5 mg PO DAILY #30 tab 01/19/18 metoprolol succinate ER 25 mg 25 mg PO DAILY #30 tab 01/19/18 tablet,extended release 24 hr oxycodone 10 mg tablet 10 mg PO Q8H #90 tab 01/19/18 Allergies Allergy/AdvReac Type Severity Reaction Status Date / Time No Known Drug Allergies Allergy Verified 01/20/18 18:14 Review of Systems <JACLYN Barragan - Last Filed: 01/20/18 20:53> Review of Systems GENERAL: Denies chills, fatigue, malaise, fever, sweats. HEENT: Denies sinus pain, ear pain, sore throat, difficulty swallowing, dizziness. RESPIRATORY: Denies dyspnea, cough, wheezing, hemoptysis, sputum. CARDIOVASCULAR: Denies chest pain, palpitations, orthopnea, edema, GASTROINTESTINAL: Denies nausea, vomiting, abdominal pain, diarrhea, constipation, melena. : Denies dysuria, frequency, incontinence, hematuria, urinary retention. MUSCULOSKELETAL: denies weakness, joint pain, or bony pain SKIN: See HPI NEUROLOGIC: Denies weakness, headache, numbness, change in speech, confusion, seizures, incoordination. PSYCHIATRIC: No concerning psychosocial issues. 12 point review of systems is negative except for those stated above Exam <LUCILLE Barragan-BC - Last Filed: 01/20/18 20:53> Narrative Exam Narrative: GENERAL: This is a well-nourished, well-developed patient, lying on stretcher HEAD: Atraumatic. Normocephalic. No temporal or scalp tenderness. EYES: Pupils equal round and reactive. Extraocular motions intact. No scleral icterus. No injection or drainage. ENT: Nose without bleeding, purulent drainage or septal hematoma. Throat without erythema, tonsillar hypertrophy or exudate. Uvula midline. Airway patent. NECK: Trachea midline. No JVD or lymphadenopathy. Supple, nontender, no meningeal signs. CARDIOVASCULAR: Regular rate and rhythm without murmurs, gallops, or rubs. RESPIRATORY: Clear to auscultation. Breath sounds equal bilaterally. No wheezes, rales, or rhonchi. GASTROINTESTINAL: Abdomen soft, non-tender, nondistended. No hepato-splenomegaly, or palpable masses. No guarding. EXTREMITIES: No clubbing, cyanosis, or edema. No joint tenderness, effusion, or edema noted. Positive pulse noted left hand. BACK: Nontender without deformity or crepitance. No flank tenderness. NEURO: AOx3. Pressured speech noted. SKIN: Bandage noted over PICC line placement. No palpable hematoma, no erythema, no bleeding noted. Initial Vital Signs Initial Vital Signs: Vital Signs Temperature 97.4 F L 01/20/18 18:10 Pulse Rate 70 01/20/18 18:10 Respiratory Rate 14 01/20/18 18:10 Blood Pressure 122/78 01/20/18 18:10 Pulse Oximetry 98 01/20/18 18:10 <Tyshawn Rosas DO - Last Filed: 01/20/18 22:46> Initial Vital Signs Initial Vital Signs: Vital Signs Temperature 97.4 F L 01/20/18 18:10 Pulse Rate 70 01/20/18 18:10 Respiratory Rate 14 01/20/18 18:10 Blood Pressure 122/78 01/20/18 18:10 Pulse Oximetry 98 01/20/18 18:10 Course <JACLYN Barragan - Last Filed: 01/20/18 20:53> Orders Ordered: Discontinued Medications Ceftriaxone Sodium (Rocephin) 2,000 mg IM NOW ONE Stop: 01/20/18 19:49 Last Admin: 01/20/18 20:25 Dose: 2,000 mg Vital Signs - 8 hr 01/20/18 18:10 01/20/18 19:40 01/20/18 20:45 Temperature 97.4 F L Pulse Rate 70 75 75 Respiratory Rate 14 16 20 Blood Pressure 122/78 143/89 H Blood Pressure [Right Arm] 157/89 H Pulse Oximetry 98 100 100 <Tyshawn Rosas DO - Last Filed: 01/20/18 22:46> Orders Ordered: Discontinued Medications Ceftriaxone Sodium (Rocephin) 2,000 mg IM NOW ONE Stop: 01/20/18 19:49 Last Admin: 01/20/18 20:25 Dose: 2,000 mg Vital Signs - 8 hr 01/20/18 18:10 01/20/18 19:40 01/20/18 20:45 Temperature 97.4 F L Pulse Rate 70 75 75 Respiratory Rate 14 16 20 Blood Pressure 122/78 143/89 H Blood Pressure [Right Arm] 157/89 H Pulse Oximetry 98 100 100 MDM - Recheck/Abnormal Lab/Rx <JACLYN Barragan - Last Filed: 01/20/18 20:53> MDM Narrative Medical decision making narrative: Patient presented to the emergency department for dose of his antibiotic in stating his PICC line fell out. His PICC line location looks fantastic with no bleeding and positive CMS to left hand. He was given a dose of his antibiotics the emergency department. I encouraged him to contact his primary care physician or whomever manages his IV ceftriaxone for PICC line replacement. Discharge Plan Departure Patient Disposition: Home Clinical Impression: Displacement of peripherally inserted central venous catheter (PICC), Medication administered Discharge Date/Time: 01/20/18 20:46 Interventions: ED Discharge Assessment Last Done: 01/20/18 20:45 Instructions: DI for Osteomyelitis, Peripherally Inserted Central Catheter Activity Restrictions/Additional Instructions: We gave you your dose of antibiotic today. Please follow-up with her primary care physician or her managers her osteomyelitis tomorrow regarding PICC line replacement for your antibiotic treatments. Please follow-up with primary care provider as needed. Prescriptions: No Action aspirin 81 mg tablet,delayed release (DR/EC) 81 mg PO DAILY RF: 0 ceftriaxone 2 gram recon soln 2 gram IM DAILY RF: 0 meloxicam 7.5 mg tablet 7.5 mg PO DAILY PRN (Reason: back pain) RF: 0 buspirone 5 mg tablet 5 mg PO BID Qty: 60 RF: 5 lisinopril 5 mg tablet 5 mg PO DAILY Qty: 30 RF: 5 metoprolol succinate 25 mg tablet extended release 24 hr 25 mg PO DAILY Qty: 30 RF: 5 oxycodone 10 mg tablet 10 mg PO Q8H Qty: 90 RF: 0 lorazepam 1 mg tablet 1 mg PO Q8H PRN (Reason: Anxiety) Qty: 60 RF: 0 ibuprofen [Advil] 200 mg Tablet 400 mg PO QID PRN (Reason: Pain (Scale Score 1-3)) RF: 0 Referrals: Milli Lvei DO [Primary Care Provider] - <Tyshawn Rosas DO - Last Filed: 01/20/18 22:46> [facility] Attending Stephanie Attestation: I was available for consultation during this patient's emergency department encounter
[2018-01-20 20:45] VITALS: BP 143/89; PULSE 75; RESP 20; O2SAT 100
== END 2018-01-20 20:46 | disposition home or self-care (01) ==
PROVIDERS: Emergency Provider Nurse Practitioner Family; Family Provider Family Medicine; PCP Family Medicine
DX: T82.598A Other mechanical complication of other cardiac and vascular devices and implants, initial encounter (principal)
CPT/HCPCS: 99282; 99283; J0696

== ENCOUNTER → 2018-01-22 10:02 | Outpatient (CLI) | payer OTHER, SELFPAY ==
[2018-01-11 08:55] VITALS: BMI 25.8
--- NOTE | 2018-01-22 10:03 | DI.RAD.S_ITS ---
PROCEDURE: FL GUIDED PICC PLACEMENT INDICATIONS: Osteomyelitis. COMPARISON: Chest radiographs 01/10/18 and 11/04/17. FINDINGS: Partially imaged left PICC with tip projecting over superior vena cava. Mediastinal surgical clips, midline sternotomy wires, and a prosthetic cardiac valve are also noted. Cardiac and mediastinal silhouettes are within normal limits for size. IMPRESSION: Partially imaged left PICC with tip projecting over superior vena cava. Dictated by: Aden Wade M.D. on 01/22/2018 at 11:26 Approved by: Aden Wade M.D. on 01/22/2018 at 11:29
== END ==
PROVIDERS: PCP Family Medicine; Visit Provider Family Medicine
DX: M86.9 Osteomyelitis, unspecified (principal)
CPT/HCPCS: 36569; 77001

== ENCOUNTER 2018-01-25 11:36 | Emergency (ER) | payer OTHER, SELFPAY ==
[2018-01-11 08:55] VITALS: BMI 25.8
[2018-01-25 11:52] VITALS: BP 112/85; TEMP 36.4; BMI 25.0
[2018-01-25 12:57] VITALS: BP 130/61; PULSE 72; O2SAT 100
== END 2018-01-25 13:16 | disposition left against medical advice (07) ==
PROVIDERS: PCP Family Medicine
DX: R42 Dizziness and giddiness (principal)
CPT/HCPCS: 99281; 99282

== ENCOUNTER 2018-01-27 12:35 | Emergency (ER) | payer OTHER, SELFPAY ==
[2018-01-11 08:55] VITALS: BMI 25.8
[2018-01-27 12:39] VITALS: BP 167/93; PULSE 79; RESP 15; TEMP 37.1; O2SAT 100; BMI 24.2
[2018-01-27 14:49] VITALS: BP 158/87; PULSE 73; RESP 17; O2SAT 99
--- NOTE | 2018-01-27 14:52 | ED_ITS ---
HPI - Back Pain/Injury <Netta Lopez PA-C - Last Filed: 01/27/18 22:29> General Chief Complaint: Back Pain/Injury Stated Complaint: lower back pain and nausea Time Seen by Provider: 01/27/18 13:28 Source: patient Mode of arrival: ambulatory Limitations: no limitations History of Present Illness HPI Narrative: This 52-year-old male complains of awakening yesterday and this morning and feeling ?dizzy?, which he describes as ?spinning? sensation with the room moving around him. He states that this was most noticeable when he 1st stood up, also notices when he moves his head. He states that he has had some tickle in his throat, sniffling, and some frontal area headache in the last 2 or 3 days as well along with some slight cough. He is not having chest pain or dyspnea. He denies earache or pressure. No new nasal congestion. He denies any new fever, chills, sweats. He states that he has been having ongoing anxiety, but has lorazepam at home and has not used this. He also complains of ongoing back pain related to his osteomyelitis, wondering about further pain medication for this. He describes pain as persistent, not acutely worse today. He wonders whether this dizziness is related to the infection in his back. Related Data Home Medications Medication Instructions Recorded Confirmed ibuprofen [Advil] 400 mg PO QID PRN 12/14/17 01/25/18 aspirin 81 mg tablet,delayed 81 mg PO DAILY 01/19/18 01/25/18 release ceftriaxone 2 gram solution for 2 gram IM DAILY 01/19/18 01/25/18 injection meloxicam 7.5 mg tablet 7.5 mg PO BID PRN tab 01/19/18 01/25/18 hydroxyzine pamoate 50 mg PO TID 01/25/18 01/25/18 Previous Rx's Medication Instructions Recorded lorazepam 1 mg tablet 1 mg PO Q8H PRN #60 tab 01/11/18 buspirone 5 mg tablet 5 mg PO BID #60 tab 01/19/18 lisinopril 5 mg tablet 5 mg PO DAILY #30 tab 01/19/18 metoprolol succinate ER 25 mg 25 mg PO DAILY #30 tab 01/19/18 tablet,extended release 24 hr oxycodone 10 mg tablet 10 mg PO Q8H #90 tab 01/19/18 meclizine 25 mg PO Q4-6H PRN #20 tab 01/27/18 Allergies Allergy/AdvReac Type Severity Reaction Status Date / Time No Known Drug Allergies Allergy Verified 01/26/18 12:03 Review of Systems <Netta Lopez PA-C - Last Filed: 01/27/18 22:29> Review of Systems All systems reviewed & are unremarkable except as noted in HPI and below Exam <Netta Lopez PA-C - Last Filed: 01/27/18 22:29> Narrative Exam Narrative: GENERAL APPEARANCE: Patient sitting comfortably, in no distress. HEAD: No sinus tenderness EYES: PERRL, EOMI, no nystagmus. EARS: TMs intact with normal light reflex on the left, right is dull, opacified THROAT: Pharynx normal, uvula midline. LUNGS: Clear to auscultation bilaterally. HEART: Rate and rhythm regular without murmur, normal S1 and S2, no S3 or S4. NEUROLOGIC: Alert, oriented, normal speech, and coordination. Vertigo is elicited with moving from supine to sit and head movement. Unable to perform Hallpike maneuver due to mobility limitations DERMATOLOGIC: No exanthem. No effusion or point tenderness over the lumbar spine Initial Vital Signs Initial Vital Signs: Vital Signs Temperature 98.8 F 01/27/18 12:39 Pulse Rate 79 01/27/18 12:39 Respiratory Rate 15 01/27/18 12:39 Blood Pressure 167/93 H 01/27/18 12:39 Pulse Oximetry 100 01/27/18 12:39 <Tyshawn Rosas DO - Last Filed: 01/28/18 15:43> Initial Vital Signs Initial Vital Signs: Vital Signs Temperature 98.8 F 01/27/18 12:39 Pulse Rate 79 01/27/18 12:39 Respiratory Rate 15 01/27/18 12:39 Blood Pressure 167/93 H 01/27/18 12:39 Pulse Oximetry 100 01/27/18 12:39 Course <HILARIA Coley Last Filed: 01/27/18 22:29> Additional Information: Patient's symptoms are consistent with positional vertigo, onset yesterday. This seems to correlate with mild upper respiratory symptoms. He seems to remember taking meclizine in the past. Per records Ativan was filled last month for anxiety and he has not been using this recently. He notes ongoing increased anxiety, advised he certainly can try that as needed. Advised we would not change or prescribe any ongoing pain medication here from the ED and if his regimen is not effective, should discuss further with the specialist managing his osteomyelitis Orders Ordered: Discontinued Medications Meclizine HCl (Antivert) 25 mg PO NOW ONE Stop: 01/27/18 14:42 Last Admin: 01/27/18 15:00 Dose: 25 mg Vital Signs - 8 hr 01/27/18 14:49 Pulse Rate 73 Respiratory Rate 17 Blood Pressure [Right Arm] 158/87 H Pulse Oximetry 99 <Tyshawn Rosas, DO - Last Filed: 01/28/18 15:43> Orders Ordered: Discontinued Medications Meclizine HCl (Antivert) 25 mg PO NOW ONE Stop: 01/27/18 14:42 Last Admin: 01/27/18 15:00 Dose: 25 mg Vital Signs - 8 hr 01/27/18 14:49 Pulse Rate 73 Respiratory Rate 17 Blood Pressure [Right Arm] 158/87 H Pulse Oximetry 99 Discharge Plan Departure Patient Disposition: Home Clinical Impression: Vertigo, Anxiety Discharge Date/Time: 01/27/18 15:17 Interventions: ED Discharge Assessment Last Done: 01/27/18 15:06 Instructions: DI for Vertigo Activity Restrictions/Additional Instructions: Please return if you have acute changes. Otherwise, please schedule follow-up with your PCP in a few days to reassess your vertigo. As we talked about, you may need a referral for further testing or therapy if this is not getting better. You can take the meclizine as needed for this, and remember to change positions very slowly and move ?like a robot?, avoid turning your head. You have mentioned that you are no longer taking hydroxyzine (please avoid using these together as they are both antihistamines) You mention that you have had more anxiety recently. Since you have Ativan ( lorazepam) at home for occasional use, please continue that as needed. You should also follow up with your back specialist who has been treating you for infection in your back regarding your ongoing back pain. Prescriptions: New meclizine 25 mg tablet 25 mg PO Q4-6H PRN (Reason: vertigo) Qty: 20 RF: 0 No Action aspirin 81 mg tablet,delayed release (DR/EC) 81 mg PO DAILY RF: 0 ceftriaxone 2 gram recon soln 2 gram IM DAILY RF: 0 meloxicam 7.5 mg tablet 7.5 mg PO BID PRN (Reason: Back Pain) RF: 0 buspirone 5 mg tablet 5 mg PO BID Qty: 60 RF: 5 lisinopril 5 mg tablet 5 mg PO DAILY Qty: 30 RF: 5 metoprolol succinate 25 mg tablet extended release 24 hr 25 mg PO DAILY Qty: 30 RF: 5 oxycodone 10 mg tablet 10 mg PO Q8H Qty: 90 RF: 0 lorazepam 1 mg tablet 1 mg PO Q8H PRN (Reason: Anxiety) Qty: 60 RF: 0 ibuprofen [Advil] 200 mg Tablet 400 mg PO QID PRN (Reason: Pain (Scale Score 1-3)) RF: 0 hydroxyzine pamoate 50 mg Capsule 50 mg PO TID RF: 0 <Tyshawn Rosas DO - Last Filed: 01/28/18 15:43> Cosign ED Attending Cosnateature Attestation: I was available for consultation for this patients ED stay.
[2018-01-27] MEDS: MECLIZINE HCL 12.5 MG TABLET 25 MG PO (15:00)
--- NOTE | 2018-01-27 15:02 | PC.NURSE ---
pt reports, dizziness when changing position, c/o frontal headache, denies fever, denies trauma, injuries. pt concern that infection is related to his back pain/infection. back no redness/bruising noted. pt requesting pain medication, reassured and explained that ER does not treat chronic pain, pt treated at [facility] for back pain. pt agreed to take meclizine and to take them for couple of days, and will f/u with primary. pt able to ambulate with steady gait. stand by with provider (argelia)
--- NOTE | 2018-01-28 16:26 | PC.NURSE ---
follow up call, states, feeling bad, no questions at this time, pt waiting for primary md appointment.
== END 2018-01-27 15:17 | disposition home or self-care (01) ==
PROVIDERS: Emergency Provider Internal Medicine; PCP Family Medicine
DX: R42 Dizziness and giddiness (principal); F41.9 Anxiety disorder, unspecified
CPT/HCPCS: 99282; 99283

== ENCOUNTER 2018-04-21 06:37 | Emergency (ER) | payer OTHER, SELFPAY ==
[2018-01-11 08:55] VITALS: BMI 25.8
[2018-04-21 06:52] VITALS: BP 155/88; PULSE 61; RESP 12; TEMP 37.2; O2SAT 99
--- NOTE | 2018-04-21 07:06 | ED.BACK ---
HPI - Back Pain/Injury General Chief Complaint: Back Pain/Injury Stated Complaint: low back pain,BP 179/117 this am Time Seen by Provider: 04/21/18 07:06 Source: patient Mode of arrival: ambulatory Limitations: no limitations History of Present Illness HPI Narrative: 53-year-old male here for evaluation of hypertension and lower back pain. Patient has a fairly complicated medical history. He just recently finished a course of antibiotics through a PICC line for treatment of what appears to be osteomyelitis. This was initiated by orthopedic providers at [facility]. He has been seen by numerous other providers up to this point for various issues to include his primary care doctor at the time. He also has lower back pain. He states that this is his normal lower back pain. It appears that in the past he has had a referral to pain management which he has not yet made an appointment with. He states that there is a new referral placed. He also has a referral placed for Infectious Disease for follow-up for his osteomyelitis. He also has a referral in place for Cardiology secondary to his cardiac history. He is taking blood pressure medications. He states he did take his blood pressure medications this morning. He states this morning he was 170s over 100s. No other symptoms associated with the. Related Data Home Medications Medication Instructions Recorded Confirmed ibuprofen [Advil] 400 mg PO QID PRN 12/14/17 01/25/18 aspirin 81 mg tablet,delayed 81 mg PO DAILY 01/19/18 01/25/18 release ceftriaxone 2 gram solution for 2 gram IM DAILY 01/19/18 01/25/18 injection Previous Rx's Medication Instructions Recorded lorazepam 1 mg tablet 1 mg PO Q8H PRN #60 tab 01/11/18 metoprolol succinate ER 25 mg 25 mg PO DAILY #30 tab 01/19/18 tablet,extended release 24 hr oxycodone 10 mg tablet 10 mg PO Q8H #90 tab 01/19/18 meclizine 25 mg PO Q4-6H PRN #20 tab 01/27/18 meloxicam 7.5 mg tablet 7.5 mg PO BID PRN #60 tab 02/05/18 buspirone 5 mg tablet 5 mg PO TID #90 tab 02/27/18 hydroxyzine pamoate 50 mg capsule 50 mg PO QID #90 cap 02/27/18 lisinopril 5 mg tablet 5 mg PO DAILY #30 tab 02/27/18 Allergies Allergy/AdvReac Type Severity Reaction Status Date / Time No Known Drug Allergies Allergy Verified 02/27/18 10:47 Review of Systems Constitutional Denies fatigue, Denies fever(s) and Reports headache(s) ENT Ears, Nose, Mouth, and Throat: Reports headache(s) Cardiovascular Denies chest pain, Denies palpitations and Denies dyspnea Respiratory Denies cough and Denies dyspnea Gastrointestinal Gastrointestinal: Denies abdominal pain Genitourinary Denies dysuria Musculoskeletal Reports back pain, Denies numbness and Denies tingling Integumentary/Breasts Denies rash Neurologic Reports headache(s), Denies numbness and Denies tingling Endocrine Denies fatigue and Denies palpitations [facility] Social History household members: family Smoking Status: Current every day smoker alcohol intake: former Exam Initial Vital Signs Initial Vital Signs: Vital Signs Temperature 99 F 04/21/18 06:52 Pulse Rate 61 04/21/18 06:52 Respiratory Rate 12 04/21/18 06:52 Blood Pressure 155/88 H 04/21/18 06:52 Pulse Oximetry 99 04/21/18 06:52 Const General: cooperative, healthy appearing, comfortable, well developed, well groomed and No acute distress Orientation: alert, awake and oriented x3 HENMT Head: normal to inspection and normocephalic Resp Effort & Inspection: normal respiratory effort Auscultation: clear to auscultation bilaterally Cardio Rate: regular rate Rhythm: regular rhythm Pulses: radial pulses present GI Inspection: non-distended Palpation: soft, No firm and No tender Skin Lesions: no lesions Rashes: no rashes Neuro General: alert, awake and oriented x3 Extrem General: normal to inspection and No edema Psych Appearance: grossly normal and well kempt Course Orders Ordered: ED Orders 04/21/18 07:45 Basic Metabolic Panel Stat C-Reactive Protein Quant Stat Complete Blood Count AUTO DIFF Stat Erythrocyte Sedimentation Rate Stat Vital Signs - 8 hr 04/21/18 06:52 Temperature 99 F Pulse Rate 61 Respiratory Rate 12 Blood Pressure 155/88 H Pulse Oximetry 99 MDM - Back Pain/Injury Lab Data Result diagrams: 04/21/18 07:45 04/21/18 07:45 MDM Narrative Medical decision making narrative: Had a long discussion with the patient regarding his symptoms. He has low back pain is chronic. He does have a referral in place to see pain management and also to see infectious disease. I did draw labs on him in this morning. He stated that he did not want wait for these labs a result. I got his phone number and told him that I would call for any abnormalities. Patient does not fit any red flag symptoms concerning for cauda equina, new fracture, metastasis, hematoma/abscess. Will hold on any radiologic studies for now. Patient's blood pressure has improved significantly. We had a long discussion regarding blood pressure and the things that can make the blood pressure change. Informed him that he needed to continue his blood pressure medication. No intervention needed here in the emergency department. Informed patient that he needed to contact his primary care doctor which he states he recently got set up with a new 1 at [facility]. He was given return precautions. He expressed understanding and agreement. Discharge Plan Departure Patient Disposition: Home Clinical Impression: Hypertension, Chronic lower back pain Instructions: Low Back Pain, Essential Hypertension, Activity May Be Better then Rest for Low Back Pain Recovery, Exercise May Reduce Risk of Low Back Pain Activity Restrictions/Additional Instructions: He decided to leave the emergency department prior to the results of your lab tests. I will call for any positive results. I do recommend you contact your primary care doctor for a follow-up. I also recommend that you call the pain management, infectious disease and hydrotechnical specialist groups for which she you currently referrals in place. Return to the emergency department for any new or worsening symptoms Prescriptions: No Action aspirin 81 mg tablet,delayed release (DR/EC) 81 mg PO DAILY RF: 0 ceftriaxone 2 gram recon soln 2 gram IM DAILY RF: 0 metoprolol succinate 25 mg tablet extended release 24 hr 25 mg PO DAILY Qty: 30 RF: 5 oxycodone 10 mg tablet 10 mg PO Q8H Qty: 90 RF: 0 lorazepam 1 mg tablet 1 mg PO Q8H PRN (Reason: Anxiety) Qty: 60 RF: 0 buspirone 5 mg tablet 5 mg PO TID Qty: 90 RF: 5 lisinopril 5 mg tablet 5 mg PO DAILY Qty: 30 RF: 5 hydroxyzine pamoate 50 mg capsule 50 mg PO QID Qty: 90 RF: 4 meloxicam 7.5 mg tablet 7.5 mg PO BID PRN (Reason: Back Pain) Qty: 60 RF: 0 ibuprofen [Advil] 200 mg Tablet 400 mg PO QID PRN (Reason: Pain (Scale Score 1-3)) RF: 0 meclizine 25 mg tablet 25 mg PO Q4-6H PRN (Reason: vertigo) Qty: 20 RF: 0
--- NOTE | 2018-04-21 07:54 | PC.NURSE ---
want to leave for garden worker appt at 058
[2018-04-21 07:55] VITALS: BP 145/74; PULSE 58; RESP 16; O2SAT 98
[2018-04-21 08:02] VITALS: BP 131/71; PULSE 53; RESP 16; O2SAT 97
[2018-04-21 08:12] LABS: BUN Creatinine Ratio 14.3 (6-22); Blood Urea Nitrogen 10 mg/dL (9-20); C-Reactive Protein Quant < 0.5 mg/dL (<1.0); Calcium 9.1 mg/dL (8.4-10.2); Carbon Dioxide 24 mmol/L (22-32); Chloride 105 mmol/L (98-107); Estimated Glomerular Filt Rate > 60.0 mL/min (>60); Glucose 90 mg/dL (70-100); HEMOLYSIS < 15 (0-50); Potassium 4.3 mmol/L (3.4-5.1); Sodium 137 mmol/L (137-145)
[2018-04-21 08:19] LABS: Add Manual Diff / Slide Review NO; Basophils Percent Auto 0.8 % (0-2); Eosinophils Percent Auto 3.2 % (2-4); Hematocrit 38.9 % (41-53); Hemoglobin 13.4 g/dL (13.5-17.5); Lymphocytes Percent Auto 26.6 % (25-40); Mean Corpuscular HGB Conc 34.4 % (30-36); Mean Corpuscular Hemoglobin 29.6 PG (26-34); Mean Corpuscular Volume 85.9 fL (80-100); Monocytes Percent Auto 4.9 % (3-14); Neutrophils Absolute Auto 3800 /uL (1500-7000); Neutrophils Percent Auto 64.5 % (50-75); Platelet Count 186 X10^3/uL (150-400); Red Blood Cell Count 4.53 X10^6/uL (4.5-5.9); Red Cell Distribution Width 12.9 % (11.6-14.8); White Blood Cell Count 5.9 X10^3/uL (4.5-11.0)
[2018-04-21 08:37] LABS: Erythrocyte Sedimentation Rate 3 MM/HR (0-15)
== END 2018-04-21 08:10 | disposition home or self-care (01) ==
PROVIDERS: Emergency Provider Emergency Medicine; PCP Family Medicine
DX: M54.9 Dorsalgia, unspecified (principal); I10 Essential (primary) hypertension
CPT/HCPCS: 36415; 80048; 85025; 85651; 86140; 99282

== ENCOUNTER 2018-04-21 10:17 | Emergency (ER) | payer OTHER, SELFPAY ==
[2018-01-11 08:55] VITALS: BMI 25.8
[2018-04-21 10:31] VITALS: BP 140/80; PULSE 61; RESP 20; TEMP 37.1; O2SAT 100; BMI 24.0
--- NOTE | 2018-04-21 11:31 | ED.BACK ---
HPI - Back Pain/Injury General Chief Complaint: Back Pain/Injury Stated Complaint: SEVERE LOWER BACK PAIN Time Seen by Provider: 04/21/18 11:31 Related Data Home Medications Medication Instructions Recorded Confirmed ibuprofen [Advil] 400 mg PO QID PRN 12/14/17 01/25/18 aspirin 81 mg tablet,delayed 81 mg PO DAILY 01/19/18 01/25/18 release ceftriaxone 2 gram solution for 2 gram IM DAILY 01/19/18 01/25/18 injection Previous Rx's Medication Instructions Recorded lorazepam 1 mg tablet 1 mg PO Q8H PRN #60 tab 01/11/18 metoprolol succinate ER 25 mg 25 mg PO DAILY #30 tab 01/19/18 tablet,extended release 24 hr oxycodone 10 mg tablet 10 mg PO Q8H #90 tab 01/19/18 meclizine 25 mg PO Q4-6H PRN #20 tab 01/27/18 meloxicam 7.5 mg tablet 7.5 mg PO BID PRN #60 tab 02/05/18 buspirone 5 mg tablet 5 mg PO TID #90 tab 02/27/18 hydroxyzine pamoate 50 mg capsule 50 mg PO QID #90 cap 02/27/18 lisinopril 5 mg tablet 5 mg PO DAILY #30 tab 02/27/18 Allergies Allergy/AdvReac Type Severity Reaction Status Date / Time No Known Drug Allergies Allergy Verified 04/21/18 10:31 [facility] Social History household members: family Smoking Status: Current every day smoker alcohol intake: former Exam Initial Vital Signs Initial Vital Signs: Vital Signs Temperature 98.7 F 04/21/18 10:31 Pulse Rate 61 04/21/18 10:31 Respiratory Rate 20 04/21/18 10:31 Blood Pressure 140/80 04/21/18 10:31 Pulse Oximetry 100 04/21/18 10:31 Course Vital Signs - 8 hr 04/21/18 10:31 Temperature 98.7 F Pulse Rate 61 Respiratory Rate 20 Blood Pressure 140/80 Pulse Oximetry 100 Discharge Plan Departure Prescriptions: No Action aspirin 81 mg tablet,delayed release (DR/EC) 81 mg PO DAILY RF: 0 ceftriaxone 2 gram recon soln 2 gram IM DAILY RF: 0 metoprolol succinate 25 mg tablet extended release 24 hr 25 mg PO DAILY Qty: 30 RF: 5 oxycodone 10 mg tablet 10 mg PO Q8H Qty: 90 RF: 0 lorazepam 1 mg tablet 1 mg PO Q8H PRN (Reason: Anxiety) Qty: 60 RF: 0 buspirone 5 mg tablet 5 mg PO TID Qty: 90 RF: 5 lisinopril 5 mg tablet 5 mg PO DAILY Qty: 30 RF: 5 hydroxyzine pamoate 50 mg capsule 50 mg PO QID Qty: 90 RF: 4 meloxicam 7.5 mg tablet 7.5 mg PO BID PRN (Reason: Back Pain) Qty: 60 RF: 0 ibuprofen [Advil] 200 mg Tablet 400 mg PO QID PRN (Reason: Pain (Scale Score 1-3)) RF: 0 meclizine 25 mg tablet 25 mg PO Q4-6H PRN (Reason: vertigo) Qty: 20 RF: 0
== END 2018-04-21 11:49 | disposition left against medical advice (07) ==
PROVIDERS: Emergency Provider Emergency Medicine; PCP Family Medicine
DX: M54.9 Dorsalgia, unspecified (principal)
CPT/HCPCS: 36415; 80048; 85025; 85651; 86140; 99281; 99282

== ENCOUNTER → 2018-05-24 08:42 | Outpatient (CLI) | payer OTHER, SELFPAY ==
[2018-01-11 08:55] VITALS: BMI 25.8
[2018-05-24 10:19] LABS: Add Manual Diff / Slide Review NO; Basophils Absolute Auto 0 /uL (0-100); Basophils Percent Auto 0.5 % (0-2); Eosinophils Absolute Auto 200 /uL (0-450); Eosinophils Percent Auto 2.9 % (2-4); Hematocrit 41.2 % (41-53); Lymphocytes Absolute Auto 1400 /uL (1100-4500); Lymphocytes Percent Auto 22.4 % (25-40); Mean Corpuscular HGB Conc 34.1 % (30-36); Mean Corpuscular Hemoglobin 29.5 PG (26-34); Mean Corpuscular Volume 86.7 fL (80-100); Monocytes Absolute Auto 300 /uL (0-900); Monocytes Percent Auto 4.9 % (3-14); Neutrophils Absolute Auto 4500 /uL (1500-7000); Neutrophils Percent Auto 69.3 % (50-75); Platelet Count 201 X10^3/uL (150-400); Red Blood Cell Count 4.75 X10^6/uL (4.5-5.9); Red Cell Distribution Width 13.4 % (11.6-14.8); White Blood Cell Count 6.4 X10^3/uL (4.5-11.0)
[2018-05-24 10:34] LABS: Erythrocyte Sedimentation Rate 12 MM/HR (0-15)
[2018-05-24 12:14] LABS: Alanine Aminotransferase 25 IU/L (21-72); Albumin 4.7 g/dL (3.5-5.0); Albumin Globulin Ratio 1.5 (1.0-2.8); Alkaline Phosphatase 45 U/L (38-126); Aspartate Aminotransferase 19 IU/L (17-59); BUN Creatinine Ratio 15.7 (6-22); Bilirubin Total 0.4 mg/dL (0.2-1.3); Blood Urea Nitrogen 11 mg/dL (9-20); Calcium 9.6 mg/dL (8.4-10.2); Carbon Dioxide 28 mmol/L (22-32); Chloride 102 mmol/L (98-107); Cholesterol 279 mg/dL (140-199); Estimated Glomerular Filt Rate > 60.0 mL/min (>60); Globulin 3.2 g/dL (1.7-4.1); Glucose 91 mg/dL (70-100); HDL Cholesterol 37 mg/dL (40-60); HEMOLYSIS < 15 (0-50); LDL Cholesterol Calculated 211 mg/dL (<100); Potassium 3.9 mmol/L (3.4-5.1); Sodium 140 mmol/L (137-145); Total Protein 7.9 g/dL (6.3-8.2); Triglycerides 153 mg/dL (35-150)
[2018-05-24 12:15] LABS: C-Reactive Protein Quant < 0.5 mg/dL (<1.0)
== END ==
PROVIDERS: PCP Student in an Organized Health Care Education/Training Program; Visit Provider Student in an Organized Health Care Education/Training Program
DX: M46.26 Osteomyelitis of vertebra, lumbar region (principal); I10 Essential (primary) hypertension; Z13.220 Encounter for screening for lipoid disorders
CPT/HCPCS: 36415; 80053; 80061; 85025; 85651; 86140

== ENCOUNTER → 2018-06-11 17:40 | Outpatient (CLI) | payer OTHER, SELFPAY ==
[2018-01-11 08:55] VITALS: BMI 25.8
--- NOTE | 2018-06-11 | DI.RAD.S_ITS ---
PROCEDURE: XR CERVICAL SPINE 4V OR 5V INDICATIONS: CERVICALGIA TECHNIQUE: 5 views of the cervical spine acquired. COMPARISON: [facility], CT, CT CERVICAL SPINE WITHOUT CONTRAST, 10/10/2017, 20:21. FINDINGS: Bones: No fractures or dislocations to the C7-T1 level. Oblique images demonstrate no bony foraminal stenoses. Moderate disc space narrowing is present C5-6 and C6-7. Bilateral foraminal narrowing is present at C5-6 with mild degree. The odontoid is suboptimally visualized. Soft tissues: No prevertebral soft tissue swelling. IMPRESSION: Discogram of narrowing at C5-6 and C6-7. Dictated by: Kathleen Zheng M.D. on 06/11/2018 at 19:03 Approved by: Kathleen Zheng M.D. on 06/11/2018 at 19:04
== END ==
PROVIDERS: PCP Student in an Organized Health Care Education/Training Program; Visit Provider Student in an Organized Health Care Education/Training Program
DX: M54.2 Cervicalgia (principal); M48.02 Spinal stenosis, cervical region
CPT/HCPCS: 72050

== ENCOUNTER 2018-09-21 11:23 | Emergency (ER) | payer OTHER, SELFPAY ==
[2018-01-11 08:55] VITALS: BMI 25.8
[2018-09-21 11:15] VITALS: BP 91/65; PULSE 74; RESP 11; TEMP 36.6; O2SAT 98
--- NOTE | 2018-09-21 11:32 | ED_ITS ---
HPI - Altered Mental Status General Chief Complaint: Neuro Symptoms/Deficit Stated Complaint: AMS Time Seen by Provider: 09/21/18 11:29 Source: patient, EMS and old records reviewed History of Present Illness HPI narrative: This is a 53-year-old male comes to the emergency department with complaint of altered mental status. Patient was found on the sidewalk. He states he was walking and laid down. He states he did fall or have any injury or trauma. Patient states he has not been drinking today. He states he did take 2 clonazepam. He states this is not abnormal for him. He is slow to answer questions. Patient does know the year, he thought it was and not Thursday. EMS states PD knows him well from encounters for alcohol intoxication that he can sometimes be aggressive although he has not been today. Patient denies any alcohol today. Patient states he does have a history of hypertension, that he has chronic back issues. Patient denies any weakness or numbness. EMS noted some facial droop. Patient states he does not know if that is new or not. He denies any chest pain, no shortness breath, no headache. No neck pain. No vomiting or diarrhea. Related Data Home Medications Medication Instructions Recorded Confirmed ibuprofen [Advil] 400 mg PO QID PRN 12/14/17 07/15/18 aspirin 81 mg tablet,delayed 81 mg PO DAILY 01/19/18 07/15/18 release celecoxib PO .qday 07/15/18 07/15/18 duloxetine 60 mg capsule,delayed 60 mg PO DAILY 07/15/18 07/15/18 release lisinopril 20 mg tablet 20 mg PO DAILY 07/15/18 07/15/18 Previous Rx's Medication Instructions Recorded metoprolol succinate ER 25 mg 25 mg PO DAILY #30 tab 01/19/18 tablet,extended release 24 hr hydroxyzine pamoate 50 mg capsule 50 mg PO QID #90 cap 02/27/18 Allergies Allergy/AdvReac Type Severity Reaction Status Date / Time No Known Drug Allergies Allergy Verified 07/15/18 10:14 Review of Systems Review of Systems ROS Unobtainable: All systems reviewed & are unremarkable except as noted in HPI and below Constitutional Denies chills, Denies fever(s), Denies headache(s) and Denies lethargy Eyes Denies change in vision ENT Ears, Nose, Mouth, and Throat: Denies headache(s) Cardiovascular Denies chest pain, Denies chest pain at rest, Denies diaphoresis, Denies edema, Denies lightheadedness, Denies dyspnea and Denies dyspnea on exertion Respiratory Denies chest congestion, Denies cough, Denies dyspnea and Denies dyspnea on exertion Gastrointestinal Gastrointestinal: Denies abdominal pain, Denies change in bowel habits, Denies diarrhea, Denies nausea and Denies vomiting Genitourinary Denies hematuria, Denies flank pain, Denies urinary frequency, Denies urinary hesitancy, Denies urinary incontinence and Denies urinary urgency Musculoskeletal Reports back pain (chronic per patient.), Reports arthralgias (ankle pain), Denies muscle weakness, Denies numbness, Denies radiating pain into limb and Denies tingling Integumentary/Breasts Denies rash Neurologic Reports as per HPI, Denies abnormal movements, Denies headache(s), Denies numbness, Denies sensory deficit, Denies tingling and Denies paresthesias Exam Narrative Exam Narrative: GEN: well nourished, well appearing male, alert and oriented x 2, patient's but it was rather than Thursday, patient appears to be in mild distress. HEENT: Atraumatic, pupils are equal round reactive to light, extraocular movements are intact, nares are clear, TMs are clear with no fluid, there is no conjunctival pallor. Throat is clear without any exudates, erythema, tonsillar enlargement or uvular deviation, patient has some left-sided facial droop. HEART: Regular rate and rhythm without murmur, clicks, rubs. No carotid bruits, pulses are equal in upper and lower extremities LUNGS:Lungs clear to auscultation, no wheezes, rales, crackles, chest moves symmetrically ABD:bowel sounds normal, soft, non-tender, no guarding, rebound, rigidity, no masses noted, no hepatosplenomegaly :No CVA tenderness MSCL: Non-tender, no muscle atrophy, muscles strength 5/5 upper extremities, patient is able to lift right leg off the bed seems to have some difficulty with the left. He states his ankle hurts when asked if it is hard. NEURO:CN 2-12 intact, sensation normal, finger-nose patient has a little bit difficulty with both sides. Patient is slow to talk and answer questions. Initial Vital Signs Initial Vital Signs: Vital Signs Temperature 97.8 F 09/21/18 11:15 Pulse Rate 74 09/21/18 11:15 Respiratory Rate 11 L 09/21/18 11:15 Blood Pressure 91/65 09/21/18 11:15 Pulse Oximetry 98 09/21/18 11:15 Scores GCS Donnell coma scale eye opening: Spontaneous [place] coma scale verbal response: Confused [place] coma scale motor response: Obey commands Donnell coma scale total score: 14 Course Orders Ordered: ED Orders 09/21/18 11:20 Complete Blood Count AUTO DIFF Stat Comprehensive Metabolic Panel Stat Ethanol (ETOH) Stat Partial Thromboplastin Time Stat Prothrombin Time INR Stat Troponin I Stat 09/21/18 11:29 EKG-12 Lead Stat 09/21/18 11:35 CT head/brain wo con Stat 09/21/18 12:27 MR head/brain wo con Stat 09/21/18 13:45 Urine Drug Screen, Rapid Stat Urine Microscopic Stat Discontinued Medications Dextrose (D50w) 25 gm IV NOW ONE Stop: 09/21/18 11:31 Last Admin: 09/21/18 13:00 Dose: Not Given Sodium Chloride (Normal Saline 0.9%) 1,000 mls @ 150 mls/hr IV CONT LEONA Last Infusion: 09/21/18 15:58 Dose: 0 mls/hr Admin: 09/21/18 11:59 Dose: 150 mls/hr Oxycodone/Acetaminophen (Percocet 5/325) 1 tab PO NOW ONE Stop: 09/21/18 14:52 Last Admin: 09/21/18 15:16 Dose: Not Given Vital Signs - 8 hr 09/21/18 11:15 09/21/18 12:30 09/21/18 13:08 Temperature 97.8 F Pulse Rate 74 57 L 58 L Respiratory Rate 11 L 18 17 Blood Pressure 91/65 Blood Pressure [left upperarm] 114/65 99/60 Pulse Oximetry 98 99 100 09/21/18 14:43 09/21/18 15:00 Temperature Pulse Rate 60 Respiratory Rate 16 Blood Pressure Blood Pressure [left upperarm] 124/55 L 122/75 Pulse Oximetry 100 MDM - Altered Mental Status Lab Data Attestation: I reviewed the patient's lab results. Result diagrams: 09/21/18 11:20 09/21/18 11:20 Lab Results 09/21/18 09/21/18 09/21/18 Range/Units 11:20 11:20 11:20 WBC 8.2 (4.5-11.0) X10^3/uL RBC 4.26 L (4.5-5.9) X10^6/uL Hgb 13.2 L (13.5-17.5) g/dL Hct 38.3 L (41-53) % MCV 89.9 (80-100) fL MCH 31.0 (26-34) PG MCHC 34.4 (30-36) % RDW 13.0 (11.6-14.8) % Plt Count 210 (150-400) X10^3/uL Neut % (Auto) 66.7 (50-75) % Lymph % (Auto) 24.2 L (25-40) % [place] % (Auto) 4.6 (3-14) % Eos % (Auto) 3.8 (2-4) % Baso % (Auto) 0.7 (0-2) % Neut # (Auto) 5500 (4646-6299) /uL Lymph # (Auto) 2000 (4203-0855) /uL [place] # (Auto) 400 (0-900) /uL Eos # (Auto) 300 (0-450) /uL Baso # (Auto) 100 (0-100) /uL PT 10.6 (10.1-12.7) SECONDS INR 0.9 (0.9-1.3) APTT 30 D (26.4-36.2) SECONDS Sodium 142 (137-145) mmol/L Potassium 4.1 (3.4-5.1) mmol/L Chloride 106 (98-107) mmol/L Carbon Dioxide 25 (22-32) mmol/L BUN 21 H (9-20) mg/dL Creatinine 0.80 (0.66-1.25) mg/dL Estimated GFR > 60.0 (>60) mL/min BUN/Creatinine Ratio 26.3 H (6-22) Glucose 78 (70-100) mg/dL Calcium 9.7 (8.4-10.2) mg/dL Total Bilirubin 0.4 (0.2-1.3) mg/dL AST 18 (17-59) IU/L ALT 23 (21-72) IU/L Alkaline Phosphatase 53 (38-126) U/L Troponin I < 0.012 (0.01-0.034) ng/mL Total Protein 7.3 (6.3-8.2) g/dL Albumin 4.6 (3.5-5.0) g/dL Globulin 2.7 (1.7-4.1) g/dL Albumin/Globulin Ratio 1.7 (1.0-2.8) Urine RBC (0-5/HPF) Urine WBC (0-5/HPF) Urine Bacteria (None) Ur Culture Indicated? Urine Opiates Screen (Negative) Ur Oxycodone Screen (Negative) Urine Methadone Screen (Negative) Ur Barbiturates Screen (Negative) U Tricyclic Antidepress (Negative) Ur Phencyclidine Scrn (Negative) Ur Amphetamines Screen (Negative) U Methamphetamines Scrn (Negative) Ur MDMA Scrn (Ecstasy) (Negative) U Benzodiazepines Scrn (Negative) Urine Cocaine Screen (Negative) U Marijuana (THC) Screen (Negative) Ethyl Alcohol < 10 mg/dL 09/21/18 09/21/18 Range/Units 13:45 13:45 WBC (4.5-11.0) X10^3/uL RBC (4.5-5.9) X10^6/uL Hgb (13.5-17.5) g/dL Hct (41-53) % MCV (80-100) fL MCH (26-34) PG MCHC (30-36) % RDW (11.6-14.8) % Plt Count (150-400) X10^3/uL Neut % (Auto) (50-75) % Lymph % (Auto) (25-40) % [place] % (Auto) (3-14) % Eos % (Auto) (2-4) % Baso % (Auto) (0-2) % Neut # (Auto) (2684-6841) /uL Lymph # (Auto) (9303-9304) /uL [place] # (Auto) (0-900) /uL Eos # (Auto) (0-450) /uL Baso # (Auto) (0-100) /uL PT (10.1-12.7) SECONDS INR (0.9-1.3) APTT (26.4-36.2) SECONDS Sodium (137-145) mmol/L Potassium (3.4-5.1) mmol/L Chloride (98-107) mmol/L Carbon Dioxide (22-32) mmol/L BUN (9-20) mg/dL Creatinine (0.66-1.25) mg/dL Estimated GFR (>60) mL/min BUN/Creatinine Ratio (6-22) Glucose (70-100) mg/dL Calcium (8.4-10.2) mg/dL Total Bilirubin (0.2-1.3) mg/dL AST (17-59) IU/L ALT (21-72) IU/L Alkaline Phosphatase (38-126) U/L Troponin I (0.01-0.034) ng/mL Total Protein (6.3-8.2) g/dL Albumin (3.5-5.0) g/dL Globulin (1.7-4.1) g/dL Albumin/Globulin Ratio (1.0-2.8) Urine RBC 0-1/hpf (0-5/HPF) Urine WBC None seen (0-5/HPF) Urine Bacteria None seen (None) Ur Culture Indicated? Cult not indicated Urine Opiates Screen Negative (Negative) Ur Oxycodone Screen Negative (Negative) Urine Methadone Screen Negative (Negative) Ur Barbiturates Screen Negative (Negative) U Tricyclic Antidepress Negative (Negative) Ur Phencyclidine Scrn Negative (Negative) Ur Amphetamines Screen Negative (Negative) U Methamphetamines Scrn Negative (Negative) Ur MDMA Scrn (Ecstasy) Negative (Negative) U Benzodiazepines Scrn Positive H (Negative) Urine Cocaine Screen Negative (Negative) U Marijuana (THC) Screen Negative (Negative) Ethyl Alcohol mg/dL Point of Care Testing Glucose POC 85 Urine Dip Bedside Urine Glucose Negative Bedside Urine Bilirubin - Negative Bedside Urine Ketone - Negative Urine Specific [place] 1.020 Bedside Urine Occult Blood +/- Bedside Urine pH 6.0 Bedside Urine Protein - Negative Bedside Urine Urobilinogen - Negative Bedside Urine Nitrite - Negative Bedside Urine Leukocytes - Negative Esterase Imaging Data CT scan - head: Radiologist's impression: [address] [address] [address] Scan Report Signed Patient: Fidel Erwin EMR#: [id number] : 1965Acct:[id number] Age/Sex: 53 / MDate of Service: 09/21/18 Loc: ED Accession Number: [id number] Procedure: CT head/brain wo con Ordering Provider: Rody Fraire D.O. PROCEDURE: CT HEAD/BRAIN WO CON INDICATIONS: ? new facial droop, took clonazepam, ? etoh vs. cva TECHNIQUE: Noncontrast 4.5 mm thick angled axial sections acquired from the foramen magnum to the vertex, with coronal and sagittal reformats. For radiation dose reduction, the following was used: automated exposure control, adjustment of mA and/or kV according to patient size. COMPARISON: [facility], CT, HEAD WITHOUT CONTRAST, 02/11/2009, 21:30. FINDINGS: Image quality: Excellent. CSF spaces: Basal cisterns are patent. No extra-axial fluid collections. Ventricles are normal in size and shape. Brain: A remote infarction can be seen involving the right frontal lobe anteriorly and laterally. No midline shift. No intracranial masses or hemorrhage. Bustillo-white matter interface is normal. Skull and face: Calvarium and visualized facial bones are intact, without suspicious lesions. Sinuses: Visualized sinuses and mastoids are clear. IMPRESSION: No acute intracranial abnormality can be seen. If there is strong clinical suspicion for an acute stroke, please consider an MRI for further evaluation, as it is more sensitive (assuming that there is no contraindication to MRI). 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 Dictated by: Pavan Solomon M.D. on 09/21/2018 at 10:44 Approved by: Pavan Solomon M.D. on 09/21/2018 at 10:46 MRI Head limited: Radiologist's impression: [address] [address] Magnetic Resonance Report Signed Patient: Fidel Erwin EMR#: [id number] : 1965Acct:[id number] Age/Sex: 53 / MDate of Service: 09/21/18 Loc: ED Accession Number: [id number] Procedure: MR head/brain wo con Ordering Provider: Rody Fraire D.O. PROCEDURE: MR HEAD/BRAIN WO CON INDICATIONS: ? new cva, left facial droop, left weak TECHNIQUE: The patient terminated this examination prematurely, before it could be completed. Several wall taper images from an anticipated neck MR angiogram were acquired. Sagittal FLAIR images from a brain MRI were acquired. COMPARISON: [facility], CT, HEAD WITHOUT CONTRAST, 02/11/2009, 21:30. [facility], CT, CT HEAD/BRAIN WO CON, 09/21/2018, 11:32. FINDINGS: Image quality: Highly limited, secondary to the patient terminated the examination early. On the sagittal FLAIR images, there is focal encephalomalacia with volume loss involving the anterior right frontal lobe. No additional significant brain abnormality is seen. Scattered foci of T2 weighted hyperintensity can be seen within the white matter, which are consistent with premature chronic small vessel ischemic change. To the limits of this study, no hemorrhage is seen. The brainstem is unremarkable. No hydrocephalus is detected. No findings of Chiari 1 malformation can be seen. No pituitary abnormality is seen. No significant paranasal sinus disease is seen. IMPRESSION: Highly limited study demonstrating a remote right frontal infarction. Please consider a repeat examination when the patient is clinically able to und ergo the examination. Dictated by: Pavan Solomon M.D. on 09/21/2018 at 13:39 Approved by: Pavan Solomon M.D. on 09/21/2018 at 13:43 ECG Data Attestation: I personally reviewed and interpreted this ECG as follows: Prior ECG tracings: available for review Interpretation: Sinus rhythm with a rate of 64 P are 148 QRS of 130 QTC of 425. Q-wave lateral leads in 2 3 and AVF. No elevation appreciated. Patient has prior from 01/10/2018. MDM Narrative Medical decision making narrative: Patient's lab work does not show any acute abnormalities. Head CT shows an old infarct in the anterior lateral right frontal lobe. No acute changes noted. Patient was sent to MRI is he had some f acial droop and it was unclear if this is new or old. Patient had incomplete MRI, it was too loud and became uncomfortable and did not wish to continue. I did speak with his mother it is unclear if this is a new or old facial droop. They live together but she had difficulty answering this question for me. She has noted that he often has difficulty with speech she often has difficulty with movement, but he also abuses medications and sometimes alcohol. Patient does not appear intoxicated from alcohol. He states he did take 2 clonazepam today. Patient's mentation has cleared here in the department. He still seems a little bit slow to talk but after I had discussion with his mother earlier seems that this may be a little bit his baseline. He is able to ambulate without issue. He still seems to have a little bit of mild facial droop. Patient does seem to understand our discussion and the risks versus benefits. He would like to return home. We did obtain an MRI but he felt quite uncomfortable and claustrophobic and he has chronic back pain from prior osteomyelitis and did not wish to complete the entire exam so was a limited study. There was no clear acute findings of stroke. He did have old changes. Patient's lab work does not show any major changes in EKG appears similar to priors. Discussed risks versus benefits with patient I did offer observation. He prefers not. He does have a primary care but sounds reluctant to follow up with them regarding this. Discharge Plan Departure Patient Disposition: Home Clinical Impression: Altered mental status, Facial droop Discharge Date/Time: 09/21/18 15:59 Interventions: ED Discharge Assessment Last Done: 09/21/18 15:58 Instructions: DI for Stroke-Ischemic Activity Restrictions/Additional Instructions: Follow-up with your physician in the next 24 hours for recheck. Call for an appointment. Your head CT shows a old stroke, you had an MRI today this is a limited study and cannot rule out all chances of new stroke but there is not a clear finding of new stroke today. This does not rule out a TIA. You have trouble with swallowing and it is recommended that you get a swallow evaluation with your physician in [place]. This can cause aspiration and pneumonia. I recommend following up with a physician regarding year history of bradycardia and decreased heart function. I recommend continuing all your medications as prescribed by your physicians and avoiding any mind-altering substances. Avoid any alcohol. Return to the emergency department at any time for worsening symptoms, sudden severe headaches, new weakness, numbness or difficulty with speech, if her having new chest pain, shortness of breath, difficulty with movement, weakness in her arms or legs or other new or concerning symptoms. Prescriptions: No Action aspirin 81 mg tablet,delayed release (DR/EC) 81 mg PO DAILY RF: 0 metoprolol succinate 25 mg tablet extended release 24 hr 25 mg PO DAILY Qty: 30 RF: 5 hydroxyzine pamoate 50 mg capsule 50 mg PO QID Qty: 90 RF: 4 ibuprofen [Advil] 200 mg Tablet 400 mg PO QID PRN (Reason: Pain (Scale Score 1-3)) RF: 0 lisinopril 20 mg tablet 20 mg PO DAILY RF: 0 duloxetine 60 mg capsule,delayed release(DR/EC) 60 mg PO DAILY RF: 0 celecoxib PO .qday RF: 0 Referrals: Brooke Coulter PA-C [Primary Care Provider] -
--- NOTE | 2018-09-21 11:35 | DI.CT.S_ITS ---
PROCEDURE: CT HEAD/BRAIN WO CON INDICATIONS: ? new facial droop, took clonazepam, ? etoh vs. cva TECHNIQUE: Noncontrast 4.5 mm thick angled axial sections acquired from the foramen magnum to the vertex, with coronal and sagittal reformats. For radiation dose reduction, the following was used: automated exposure control, adjustment of mA and/or kV according to patient size. COMPARISON: [facility], CT, HEAD WITHOUT CONTRAST, 02/11/2009, 21:30. FINDINGS: Image quality: Excellent. CSF spaces: Basal cisterns are patent. No extra-axial fluid collections. Ventricles are normal in size and shape. Brain: A remote infarction can be seen involving the right frontal lobe anteriorly and laterally. No midline shift. No intracranial masses or hemorrhage. Bustillo-white matter interface is normal. Skull and face: Calvarium and visualized facial bones are intact, without suspicious lesions. Sinuses: Visualized sinuses and mastoids are clear. IMPRESSION: No acute intracranial abnormality can be seen. If there is strong clinical suspicion for an acute stroke, please consider an MRI for further evaluation, as it is more sensitive (assuming that there is no contraindication to MRI). 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 Dictated by: Pavan Solomon M.D. on 09/21/2018 at 10:44 Approved by: Pavan Solomon M.D. on 09/21/2018 at 10:46
[2018-09-21 11:36] LABS: Add Manual Diff / Slide Review NO; Basophils Absolute Auto 100 /uL (0-100); Basophils Percent Auto 0.7 % (0-2); Eosinophils Absolute Auto 300 /uL (0-450); Eosinophils Percent Auto 3.8 % (2-4); Hematocrit 38.3 % (41-53); Hemoglobin 13.2 g/dL (13.5-17.5); Lymphocytes Absolute Auto 2000 /uL (1100-4500); Lymphocytes Percent Auto 24.2 % (25-40); Mean Corpuscular HGB Conc 34.4 % (30-36); Mean Corpuscular Volume 89.9 fL (80-100); Monocytes Absolute Auto 400 /uL (0-900); Monocytes Percent Auto 4.6 % (3-14); Neutrophils Absolute Auto 5500 /uL (1500-7000); Neutrophils Percent Auto 66.7 % (50-75); Platelet Count 210 X10^3/uL (150-400); Red Blood Cell Count 4.26 X10^6/uL (4.5-5.9); White Blood Cell Count 8.2 X10^3/uL (4.5-11.0)
[2018-09-21 11:46] LABS: INR 0.9 (0.9-1.3); Prothrombin Time 10.6 SECONDS (10.1-12.7)
[2018-09-21 11:49] LABS: Alanine Aminotransferase 23 IU/L (21-72); Albumin 4.6 g/dL (3.5-5.0); Albumin Globulin Ratio 1.7 (1.0-2.8); Alkaline Phosphatase 53 U/L (38-126); Aspartate Aminotransferase 18 IU/L (17-59); BUN Creatinine Ratio 26.3 (6-22); Bilirubin Total 0.4 mg/dL (0.2-1.3); Blood Urea Nitrogen 21 mg/dL (9-20); Calcium 9.7 mg/dL (8.4-10.2); Carbon Dioxide 25 mmol/L (22-32); Chloride 106 mmol/L (98-107); Estimated Glomerular Filt Rate > 60.0 mL/min (>60); Ethanol (ETOH) < 10 mg/dL; Globulin 2.7 g/dL (1.7-4.1); Glucose 78 mg/dL (70-100); HEMOLYSIS < 15 (0-50); PTT Partial Thromboplastin Tim 30 SECONDS (26.4-36.2); Potassium 4.1 mmol/L (3.4-5.1); Sodium 142 mmol/L (137-145); Total Protein 7.3 g/dL (6.3-8.2)
[2018-09-21] MEDS: SODIUM CHLORIDE 0.9% 1,000 ML 150 ML IV (11:59)
[2018-09-21 12:00] LABS: Troponin I < 0.012 ng/mL (0.01-0.034)
--- NOTE | 2018-09-21 12:27 | DI.MRI.S_ITS ---
PROCEDURE: MR HEAD/BRAIN WO CON INDICATIONS: ? new cva, left facial droop, left weak TECHNIQUE: The patient terminated this examination prematurely, before it could be completed. Several pain coordinator images from an anticipated neck MR angiogram were acquired. Sagittal FLAIR images from a brain MRI were acquired. COMPARISON: [facility], CT, HEAD WITHOUT CONTRAST, 02/11/2009, 21:30. [facility], CT, CT HEAD/BRAIN WO CON, 09/21/2018, 11:32. FINDINGS: Image quality: Highly limited, secondary to the patient terminated the examination early. On the sagittal FLAIR images, there is focal encephalomalacia with volume loss involving the anterior right frontal lobe. No additional significant brain abnormality is seen. Scattered foci of T2 weighted hyperintensity can be seen within the white matter, which are consistent with premature chronic small vessel ischemic change. To the limits of this study, no hemorrhage is seen. The brainstem is unremarkable. No hydrocephalus is detected. No findings of Chiari 1 malformation can be seen. No pituitary abnormality is seen. No significant paranasal sinus disease is seen. IMPRESSION: Highly limited study demonstrating a remote right frontal infarction. Please consider a repeat examination when the patient is clinically able to undergo the examination. Dictated by: Pavan Solomon M.D. on 09/21/2018 at 13:39 Approved by: Pavan Solomon M.D. on 09/21/2018 at 13:43
[2018-09-21 12:30] VITALS: BP 114/65; PULSE 57; RESP 18; O2SAT 99
--- NOTE | 2018-09-21 12:33 | PC.NURSE ---
pt mom spoke with dr lopez and states he has had an old stroke.
--- NOTE | 2018-09-21 12:37 | PC.NURSE ---
di tech here to to MRI check list. pt now resting quietly.
[2018-09-21 13:08] VITALS: BP 99/60; PULSE 58; RESP 17; O2SAT 100
--- NOTE | 2018-09-21 13:43 | PC.NURSE ---
pt incontinent of urine. pt found standing at side of bed attempting to use urinal. assisted pt to remove incontinent items, changed pt's bedding, and assisted with brandon care. pt calm cooperative. following directions without difficulty.
[2018-09-21 14:16] LABS: Urine Amphetamines Negative (Negative); Urine Barbiturates Negative (Negative); Urine Benzodiazepines Positive (Negative); Urine Cocaine Negative (Negative); Urine MDMA Negative (Negative); Urine Methadone Negative (Negative); Urine Methamphetamines Negative (Negative); Urine Morphine/Opi cutoff 2000 Negative (Negative); Urine Phencyclidine Negative (Negative); Urine Tetrahydrocannabinol Negative (Negative); Urine Tricyclic Antidepressant Negative (Negative)
[2018-09-21 14:17] LABS: Urine Oxycodone Negative (Negative)
[2018-09-21 14:43] VITALS: BP 124/55; PULSE 60; RESP 16; O2SAT 100
[2018-09-21 14:51] LABS: Bacteria Urine None Seen; WBC Urine None Seen (0-5/HPF)
[2018-09-21 15:00] VITALS: BP 122/75
[2018-09-21 15:11] LABS: Culture Indicated Urine Cult Not Indicated; RBC Urine 0-1/HPF (0-5/HPF)
== END 2018-09-21 15:59 | disposition home or self-care (01) ==
PROVIDERS: Emergency Provider Emergency Medicine; PCP Student in an Organized Health Care Education/Training Program
DX: R41.82 Altered mental status, unspecified (principal); R29.810 Facial weakness
CPT/HCPCS: 36591; 70450; 70551; 80053; 80305; 80320; 81003; 81015; 82962; 84484; 85025; 85610; 85730; 93005; 96360; 96361; 99284; 99285

== ENCOUNTER 2018-10-29 10:13 | Emergency (ER) | payer OTHER, SELFPAY ==
[2018-01-11 08:55] VITALS: BMI 25.8
[2018-10-29 10:27] VITALS: BP 118/87; PULSE 93; RESP 18; TEMP 36.9; O2SAT 97
--- NOTE | 2018-10-29 10:28 | DI.CT.S_ITS ---
PROCEDURE: CT HEAD/BRAIN WO CON INDICATIONS: dizzy, weakness, facial droop. new vs old? TECHNIQUE: Noncontrast 4.5 mm thick angled axial sections acquired from the foramen magnum to the vertex, with coronal and sagittal reformats. For radiation dose reduction, the following was used: automated exposure control, adjustment of mA and/or kV according to patient size. COMPARISON: [facility], CT, CT HEAD WITHOUT CONTRAST, 10/10/2017, 20:21. [facility], CT, HEAD WITHOUT CONTRAST, 02/11/2009, 21:30. [facility], CT, CT BRAIN WO CON, 03/12/2015, 18:05. [facility], MR, MR HEAD/BRAIN WO CON, 09/21/2018, 14:09. [facility], CT, CT HEAD/BRAIN WO CON, 09/21/2018, 11:32. FINDINGS: Image quality: Excellent. CSF spaces: Basal cisterns are patent. No extra-axial fluid collections. The ventricles are symmetric in size and shape. Brain: There is a large area of encephalomalacia in the right frontal lobe, compatible with old infarct. Compared with the last exam on 09/21/2018, there is no significant change. No intracranial bleeds or masses. There is cerebral volume loss for age, with resultant ventricular and sulcal prominence. There are mild periventricular and deep white matter chronic small vessel ischemic changes. Skull and face: Calvarium and visualized facial bones appear intact, without suspicious lesions. Sinuses: Visualized sinuses and mastoids are clear. IMPRESSION: 1. No acute intracranial abnormalities. 2. 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 Dictated by: Joey Luna M.D. on 10/29/2018 at 11:07 Approved by: Joey Luna M.D. on 10/29/2018 at 11:14
--- NOTE | 2018-10-29 10:29 | DI.RAD.S_ITS ---
PROCEDURE: XR CHEST 1V INDICATIONS: weakness, facial droop, dizzy, new vs. old TECHNIQUE: One view of the chest was acquired. COMPARISON: [facility], CR, XR CHEST 1 VIEW, 11/04/2017, 3:16. [facility], CT, CT ANGIO CHEST PE, 10/31/2017, 7:50. [facility], CR, XR CHEST 1V, 01/10/2018, 19:52. FINDINGS: Surgical changes and devices: Sternotomy. There is a cardiac valve prosthesis. Lungs and pleura: Linear densities in the upper and mid lung zone are likely atelectasis or scarring. Ill-defined nodular densities are seen, in the same area, unchanged. No pleural effusions or pneumothorax. Mediastinum: Mediastinal contours appear normal. Heart size is normal. Bones and chest wall: No suspicious bony lesions. Overlying soft tissues appear unremarkable. IMPRESSION: 1. No acute cardiopulmonary disease. 2. Left upper and mid lung scars and atelectasis. Dictated by: Joey Luna M.D. on 10/29/2018 at 11:35 Approved by: Joey Luna M.D. on 10/29/2018 at 11:38
[2018-10-29 10:40] VITALS: BP 109/65; PULSE 89; RESP 16; O2SAT 97
--- NOTE | 2018-10-29 10:51 | ED_ITS ---
HPI - Weakness General Chief complaint: Weakness Stated complaint: dizzy,legs are weak Time Seen by Provider: 10/29/18 10:20 Source: patient and old records reviewed History of Present Illness HPI Narrative: 53-year-old male is brought to the ER for complaint of dizziness and weakness. 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 Patient is complaining of feeling a little dizzy, he has a mild headache, he has some chronic back pain which he states is present. He denies any weakness in his upper or lower extremities. He denies any difficulty with movement of his upper and lower extremities. He d enies any new vision changes. No chest pain, no shortness of breath, no nausea or vomiting no other new GI or urinary symptoms. Patient denies any alcohol intake, on his last visit in September I had called his mother and she stated that he drinks regularly so unclear if patient is ingesting alcohol. And that he often falls. Patient has encephalomalacia present on CT today which was also present on prior CTs. He has seen Dr. Trevizo regarding his history of polysubstance abuse as well as getting follow-up for x-ray and MRI of his spine for past osteomyelitis. Related Data Home Medications Medication Instructions Recorded Confirmed ibuprofen [Advil] 400 mg PO QID PRN 12/14/17 07/15/18 aspirin 81 mg tablet,delayed 81 mg PO DAILY 01/19/18 07/15/18 release celecoxib PO .qday 07/15/18 07/15/18 duloxetine 60 mg capsule,delayed 60 mg PO DAILY 07/15/18 10/29/18 release lisinopril 20 mg tablet 20 mg PO DAILY 07/15/18 10/29/18 buspirone 5 mg PO BID 10/29/18 10/29/18 sertraline 50 mg PO DAILY 10/29/18 10/29/18 tizanidine 4 mg PO TID 10/29/18 10/29/18 Previous Rx's Medication Instructions Recorded metoprolol succinate ER 25 mg 25 mg PO DAILY #30 tab 01/19/18 tablet,extended release 24 hr hydroxyzine pamoate 50 mg capsule 50 mg PO QID #90 cap 02/27/18 Allergies Allergy/AdvReac Type Severity Reaction Status Date / Time No Known Drug Allergies Allergy Verified 07/15/18 10:14 Review of Systems Review of Systems ROS Unobtainable: All systems reviewed & are unremarkable except as noted in HPI and below Constitutional Denies chills, Denies fever(s), Reports headache(s), Denies lethargy and Denies weakness Eyes Denies change in vision ENT Ears, Nose, Mouth, and Throat: Denies vertigo, Reports dizziness and Reports headache(s) Cardiovascular Denies chest pain, Denies diaphoresis, Denies syncope, Denies edema, Denies irregular heart rhythm, Denies lightheadedness, Denies palpitations, Denies dyspnea, Denies dyspnea on exertion and Denies orthopnea Respiratory Denies change in phlegm color, Denies chest congestion, Denies cough, Denies dyspnea, Denies dyspnea on exertion and Denies wheezing Gastrointestinal Gastrointestinal: Denies abdominal pain, Denies change in bowel habits, Denies diarrhea, Denies nausea and Denies vomiting Genitourinary Denies hematuria, Denies flank pain, Denies urinary frequency, Denies urinary incontinence and Denies urinary urgency Musculoskeletal Reports back pain (chronic, no new change), Denies muscle weakness, Denies numbness and Denies tingling Integumentary/Breasts Denies rash Neurologic Reports as per HPI, Denies vertigo, Reports dizziness, Denies syncope, Reports headache(s), Denies focal weakness, Denies numbness, Denies tingling and Denies weakness Endocrine Denies palpitations Allergic/Immunologic Denies wheezing [facility] Social History household members: family Smoking Status: Current every day smoker alcohol intake: former Exam Narrative Exam Narrative: GEN: well nourished, well appearing male, alert and oriented x 3, patient appears to be in mild distress. HEENT: Atraumatic, pupils are equal round reactive to light, extraocular movements are intact, nares are clear, TMs are clear with no fluid, there is no conjunctival pallor. Throat is clear without any exudates, erythema, tonsillar enlargement or uvular deviation, left-sided facial droop. HEART: Regular rate and rhythm without murmur, clicks, rubs. No carotid bruits, pulses are equal in upper and lower extremities LUNGS:Lungs clear to auscultation, no wheezes, rales, crackles, chest moves symmetrically, no tachypnea accessory muscle use. ABD:bowel sounds normal, soft, non-tender, no guarding, rebound, rigidity, no masses noted, no hepatosplenomegaly :No CVA tenderness BACK: No cervical, thoracic or lumbar vertebral point tenderness. Patient has decreased range of motion. Patient's gait is [antalgic/normal], MSCL: Non-tender, no muscle atrophy, muscles strength 5/5 upper and lower extremities, full range of motion. NEURO:CN 2-12 intact, sensation normal. Initial Vital Signs Initial Vital Signs: Vital Signs Temperature 98.4 F 10/29/18 10:27 Pulse Rate 93 H 10/29/18 10:27 Respiratory Rate 18 10/29/18 10:27 Blood Pressure 118/87 10/29/18 10:27 Pulse Oximetry 97 10/29/18 10:27 Scores GCS [place] coma scale eye opening: Spontaneous [place] coma scale verbal response: Orientated [place] coma scale motor response: Obey commands [place] coma scale total score: 15 Course Orders Ordered: ED Orders 10/29/18 10:28 CT head/brain wo con Stat EKG-12 Lead Stat 10/29/18 10:29 XR chest 1V Stat 10/29/18 10:50 Complete Blood Count AUTO DIFF Stat Comprehensive Metabolic Panel Stat Ethanol (ETOH) Stat Partial Thromboplastin Time Stat Prothrombin Time INR Stat Troponin I Stat Discontinued Medications Sodium Chloride (Normal Saline 0.9%) 1,000 mls @ 1,000 mls/hr IV BOLUS ONE Stop: 10/29/18 11:27 Last Infusion: 10/29/18 12:45 Dose: 0 mls/hr Admin: 10/29/18 11:43 Dose: 1,000 mls/hr Ketorolac Tromethamine (Toradol) 15 mg IV NOW ONE Stop: 10/29/18 11:20 Last Admin: 10/29/18 11:45 Dose: 15 mg Vital Signs - 8 hr 10/29/18 11:30 10/29/18 11:55 10/29/18 12:45 Pulse Rate 80 91 H 79 Respiratory Rate 15 19 16 Blood Pressure 115/78 Blood Pressure [Left Arm] 107/81 Pulse Oximetry 100 97 99 MDM - Weakness Lab Data Attestation: I reviewed the patient's lab results. Result diagrams: 10/29/18 10:50 10/29/18 10:50 Lab Results 10/29/18 10/29/18 10/29/18 Range/Units 10:50 10:50 10:50 WBC 6.8 (4.5-11.0) X10^3/uL RBC 4.52 (4.5-5.9) X10^6/uL Hgb 14.3 (13.5-17.5) g/dL Hct 41.2 (41-53) % MCV 91.3 (80-100) fL MCH 31.7 (26-34) PG MCHC 34.8 (30-36) % RDW 13.9 (11.6-14.8) % Plt Count 220 (150-400) X10^3/uL Neut % (Auto) 59.4 (50-75) % Lymph % (Auto) 27.6 (25-40) % [place] % (Auto) 6.8 (3-14) % Eos % (Auto) 5.4 H (2-4) % Baso % (Auto) 0.8 (0-2) % Neut # (Auto) 4100 (3315-6019) /uL Lymph # (Auto) 1900 (6546-3320) /uL [place] # (Auto) 500 (0-900) /uL Eos # (Auto) 400 (0-450) /uL Baso # (Auto) 100 (0-100) /uL PT 10.5 (10.1-12.7) SECONDS INR 0.9 (0.9-1.3) APTT 30 (26.4-36.2) SECONDS Sodium 142 (137-145) mmol/L Potassium 3.8 (3.4-5.1) mmol/L Chloride 107 (98-107) mmol/L Carbon Dioxide 24 (22-32) mmol/L BUN 17 (9-20) mg/dL Creatinine 0.60 L (0.66-1.25) mg/dL Estimated GFR > 60.0 (>60) mL/min BUN/Creatinine Ratio 28.3 H (6-22) Glucose 115 H (70-100) mg/dL Calcium 9.2 (8.4-10.2) mg/dL Total Bilirubin 0.5 (0.2-1.3) mg/dL AST 20 (17-59) IU/L ALT 27 (21-72) IU/L Alkaline Phosphatase 54 (38-126) U/L Troponin I < 0.012 (0.01-0.034) ng/mL Total Protein 7.2 (6.3-8.2) g/dL Albumin 4.5 (3.5-5.0) g/dL Globulin 2.7 (1.7-4.1) g/dL Albumin/Globulin Ratio 1.7 (1.0-2.8) Ethyl Alcohol < 10 mg/dL Point of Care Testing Glucose POC 114 Imaging Data Chest x-ray: Radiologist's impression: Fidel Erwin 53 M [address] [address] XRay Report Signed Patient: Fidel Erwin EMR#: [id number] : 1965Acct:[id number] Age/Sex: 53 / MDate of Service: 10/29/18 Loc: ED Accession Number: [id number] Procedure: XR chest 1V Ordering Provider: Rody Fraire D.O. PROCEDURE: XR CHEST 1V INDICATIONS: weakness, facial droop, dizzy, new vs. old TECHNIQUE: One view of the chest was acquired. COMPARISON: [facility], CR, XR CHEST 1 VIEW, 11/04/2017, 3:16. [facility], CT, CT ANGIO CHEST PE, 10/31/2017, 7:50. [facility], CR, XR CHEST 1V, 01/10/2018, 19:52. FINDINGS: Surgical changes and devices: Sternotomy. There is a cardiac valve prosthesis. Lungs and pleura: Linear densities in the upper and mid lung zone are likely atelectasis or scarring. Ill-defined nodular densities are seen, in the same area, unchanged. No pleural effusions or pneumothorax. Mediastinum: Mediastinal contours appear normal. Heart size is normal. Bones and chest wall: No suspicious bony lesions. Overlying soft tissues appear unremarkable. IMPRESSION: 1. No acute cardiopulmonary disease. 2. Left upper and mid lung scars and atelectasis. Dictated by: Joey Luna M.D. on 10/29/2018 at 11:35 Approved by: Joey Luna M.D. on 10/29/2018 at 11:38 CT scan - head: Radiologist's impression: Fidel Erwin 53 M [address] [address] [address] Scan Report Signed Patient: Fidel Erwin EMR#: [id number] : 1965Acct:[id number] Age/Sex: 53 / MDate of Service: 10/29/18 Loc: ED Accession Number: [id number] Procedure: CT head/brain wo con Ordering Provider: Rody Fraire D.O. PROCEDURE: CT HEAD/BRAIN WO CON INDICATIONS: dizzy, weakness, facial droop. new vs old? TECHNIQUE: Noncontrast 4.5 mm thick angled axial sections acquired from the foramen magnum to the vertex, with coronal and sagittal reformats. For radiation dose reduction, the following was used: automated exposure control, adjustment of mA and/or kV according to patient size. COMPARISON: [facility], CT, CT HEAD WITHOUT CONTRAST, 10/10/2017, 20:21. [facility], CT, HEAD WITHOUT CONTRAST, 02/11/2009, 21:30. [facility], CT, CT BRAIN WO CON, 03/12/2015, 18:05. [facility], MR, MR HEAD/BRAIN WO CON, 09/21/2018, 14:09. [facility], CT, CT HEAD/BRAIN WO CON, 09/21/2018, 11:32. FINDINGS: Image quality: Excellent. CSF spaces: Basal cisterns are patent. No extra-axial fluid collections. The ventricles are symmetric in size and shape. Brain: There is a large area of encephalomalacia in the right frontal lobe, compatible with old infarct. Compared with the last exam on 09/21/2018, there is no significant change. No intracranial bleeds or masses. There is cerebral volume loss for age, with resultant ventricular and sulcal prominence. There are mild periventricular and deep white matter chronic small vessel ischemic changes. Skull and face: Calvarium and visualized facial bones appear intact, without suspicious lesions. Sinuses: Visualized sinuses and mastoids are clear. IMPRESSION: 1. No acute intracranial abnormalities. 2. 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 Dictated by: Joey Luna M.D. on 10/29/2018 at 11:07 Approved by: Joey Luna M.D. on 10/29/2018 at 11:14 ECG Data Attestation: I personally reviewed and interpreted this ECG as follows: Interpretation: Sinus rhythm occasional PVC, rate of 93 P are 143 QRS of 122 and QTC of 400. No clear ST elevation depression. Patient does have Q-waves. Possible prior inferior MT. Patient's EKG appears similar to prior from 09/21/2018. MDM Narrative Medical decision making narrative: Patient was complaining of some headache after head CT was found to be negative was given some Toradol, chest x-ray, EKG did not show any acute process. Lab work does not show any major abnormalities. Patient's troponin, renal function electrolytes are normal. Patient was able to ambulate without any issue about around the department and he would like to return home. Patient appears at baseline and seems appropriate. Discharge Plan Departure Patient Disposition: Home Clinical Impression: Dizziness Discharge Date/Time: 10/29/18 12:45 Interventions: ED Discharge Assessment Last Done: 10/29/18 12:45 Instructions: DI for Dizziness-Nonvertigo Activity Restrictions/Additional Instructions: Follow up with your primary care physician in the next week for recheck. Continue your home medications as prescribed. Return to the emergency for department for new or worsening symptoms, fevers got 100.4 F rapidly worsening or severe headache, syncope, new vision changes, new weakness, new numbness, chest pain, shortness of breath, persistent vomiting, black or bloody stools or other new or concerning symptoms. Prescriptions: No Action aspirin 81 mg tablet,delayed release (DR/EC) 81 mg PO DAILY RF: 0 metoprolol succinate 25 mg tablet extended release 24 hr 25 mg PO DAILY Qty: 30 RF: 5 hydroxyzine pamoate 50 mg capsule 50 mg PO QID Qty: 90 RF: 4 buspirone 5 mg Tablet 5 mg PO BID RF: 0 tizanidine 4 mg Tablet 4 mg PO TID RF: 0 sertraline 50 mg Tablet 50 mg PO DAILY RF: 0 ibuprofen [Advil] 200 mg Tablet 400 mg PO QID PRN (Reason: Pain (Scale Score 1-3)) RF: 0 lisinopril 20 mg tablet 20 mg PO DAILY RF: 0 duloxetine 60 mg capsule,delayed release(DR/EC) 60 mg PO DAILY RF: 0 celecoxib PO .qday RF: 0 Referrals: Brooke Coulter PA-C [Primary Care Provider] -
[2018-10-29 11:15] LABS: Add Manual Diff / Slide Review NO; Basophils Absolute Auto 100 /uL (0-100); Basophils Percent Auto 0.8 % (0-2); Eosinophils Absolute Auto 400 /uL (0-450); Eosinophils Percent Auto 5.4 % (2-4); Hematocrit 41.2 % (41-53); Hemoglobin 14.3 g/dL (13.5-17.5); Lymphocytes Absolute Auto 1900 /uL (1100-4500); Lymphocytes Percent Auto 27.6 % (25-40); Mean Corpuscular HGB Conc 34.8 % (30-36); Mean Corpuscular Hemoglobin 31.7 PG (26-34); Mean Corpuscular Volume 91.3 fL (80-100); Monocytes Absolute Auto 500 /uL (0-900); Monocytes Percent Auto 6.8 % (3-14); Neutrophils Absolute Auto 4100 /uL (1500-7000); Neutrophils Percent Auto 59.4 % (50-75); Platelet Count 220 X10^3/uL (150-400); Red Blood Cell Count 4.52 X10^6/uL (4.5-5.9); Red Cell Distribution Width 13.9 % (11.6-14.8); White Blood Cell Count 6.8 X10^3/uL (4.5-11.0)
[2018-10-29 11:25] LABS: INR 0.9 (0.9-1.3); Prothrombin Time 10.5 SECONDS (10.1-12.7)
[2018-10-29 11:27] LABS: PTT Partial Thromboplastin Tim 30 SECONDS (26.4-36.2)
[2018-10-29 11:29] LABS: Alanine Aminotransferase 27 IU/L (21-72); Albumin 4.5 g/dL (3.5-5.0); Albumin Globulin Ratio 1.7 (1.0-2.8); Alkaline Phosphatase 54 U/L (38-126); Aspartate Aminotransferase 20 IU/L (17-59); BUN Creatinine Ratio 28.3 (6-22); Bilirubin Total 0.5 mg/dL (0.2-1.3); Blood Urea Nitrogen 17 mg/dL (9-20); Calcium 9.2 mg/dL (8.4-10.2); Carbon Dioxide 24 mmol/L (22-32); Chloride 107 mmol/L (98-107); Estimated Glomerular Filt Rate > 60.0 mL/min (>60); Ethanol (ETOH) < 10 mg/dL; Globulin 2.7 g/dL (1.7-4.1); Glucose 115 mg/dL (70-100); HEMOLYSIS 15 (0-50); Potassium 3.8 mmol/L (3.4-5.1); Sodium 142 mmol/L (137-145); Total Protein 7.2 g/dL (6.3-8.2)
[2018-10-29 11:30] VITALS: BP 107/81; PULSE 80; RESP 15; O2SAT 100
[2018-10-29 11:39] LABS: Troponin I < 0.012 ng/mL (0.01-0.034)
[2018-10-29] MEDS: SODIUM CHLORIDE 0.9% 1,000 ML 1000 ML IV (11:43)
[2018-10-29] MEDS: KETOROLAC 60 MG/2 ML VIAL 15 MG IV (11:45)
[2018-10-29 11:55] VITALS: PULSE 91; RESP 19; O2SAT 97
[2018-10-29 12:45] VITALS: BP 115/78; PULSE 79; RESP 16; O2SAT 99
--- NOTE | 2018-10-29 12:46 | PC.NURSE ---
1230 Patient requesting to leave, he has removed his monitors and is trying to get out of bed. I spoke with Dr. Lopez who reports she will discharge him if he is able to walk. Patient walks in hallway without assistance and reports he is at his baseline. Patient feels he was also at his normal baseline this morning while at his clinic appointment. Patient's alcohol level is negative. He is now alert, no longer appears sedated at all. He has some slurred speech and is slow to respond, however dr. lopez reports this is normal for him. Patient states his back hurts and he would like to leave.
--- NOTE | 2018-10-29 12:51 | PC.NURSE ---
1232 I informed patient that the is in the process fo writing his DC papers and removed his IV. Patient in room getting dressed.
--- NOTE | 2018-10-29 12:51 | PC.NURSE ---
1240 Patient not in room. I found him in lobby attempting to leave, I encouraged him to wait in lobby in chair for DC papers. He agrees to this. Dr. Fraier finished paperwork and I had him sign it. he reports he will walk home which is just a few blocks away.
== END 2018-10-29 12:45 | disposition home or self-care (01) ==
PROVIDERS: Emergency Provider Emergency Medicine; PCP Student in an Organized Health Care Education/Training Program
DX: R42 Dizziness and giddiness (principal); R53.1 Weakness; R51 Headache
CPT/HCPCS: 36591; 70450; 71045; 80053; 80320; 82962; 84484; 85025; 85610; 85730; 93005; 96361; 96374; 99283; 99285; J1885

== ENCOUNTER 2018-10-31 12:45 | Emergency (ER) | payer OTHER, SELFPAY ==
[2018-01-11 08:55] VITALS: BMI 25.8
[2018-10-31 12:45] VITALS: BP 117/67; PULSE 58; RESP 16; TEMP 36.6; O2SAT 98; BMI 25.0
--- NOTE | 2018-10-31 12:57 | DI.RAD.S_ITS ---
PROCEDURE: XR CHEST 1V INDICATIONS: chest pain TECHNIQUE: One view of the chest was acquired. COMPARISON: [facility], , CHEST 2 VIEW, 08/14/2010, 6:27. [facility], CR, XR CHEST 1V, 01/10/2018, 19:52. [facility], CR, XR CHEST 1V, 10/29/2018, 10:35. FINDINGS: Surgical changes and devices: Post CABG changes are seen. Lungs and pleura: Likely scarring or persistent atelectasis can be seen involving the left midlung. No definite superimposed infiltrates are seen. No pleural effusions or pneumothorax. Mediastinum: Mediastinal contours appear normal. Heart size is normal. Bones and chest wall: No suspicious bony lesions. Age-appropriate bony degenerative changes are seen. Overlying soft tissues appear unremarkable. IMPRESSION: Stable chest plain film. Dictated by: Pavan Solomon M.D. on 10/31/2018 at 12:26 Approved by: Pavan Solomon M.D. on 10/31/2018 at 12:27
[2018-10-31 13:06] LABS: Add Manual Diff / Slide Review NO; Basophils Absolute Auto 0 /uL (0-100); Basophils Percent Auto 0.7 % (0-2); Eosinophils Absolute Auto 200 /uL (0-450); Eosinophils Percent Auto 3.6 % (2-4); Hematocrit 40.5 % (41-53); Hemoglobin 13.9 g/dL (13.5-17.5); Lymphocytes Absolute Auto 1800 /uL (1100-4500); Lymphocytes Percent Auto 28.3 % (25-40); Mean Corpuscular HGB Conc 34.2 % (30-36); Mean Corpuscular Hemoglobin 31.9 PG (26-34); Monocytes Absolute Auto 400 /uL (0-900); Monocytes Percent Auto 6.1 % (3-14); Neutrophils Absolute Auto 3800 /uL (1500-7000); Neutrophils Percent Auto 61.3 % (50-75); Platelet Count 195 X10^3/uL (150-400); Red Blood Cell Count 4.35 X10^6/uL (4.5-5.9); White Blood Cell Count 6.2 X10^3/uL (4.5-11.0)
[2018-10-31] MEDS: SODIUM CHLORIDE 0.9% 1,000 ML 1000 ML IV (13:12)
[2018-10-31 13:14] VITALS: BP 121/62; PULSE 59; RESP 16; O2SAT 98
[2018-10-31 13:17] LABS: Alanine Aminotransferase 27 IU/L (21-72); Albumin 4.7 g/dL (3.5-5.0); Albumin Globulin Ratio 1.7 (1.0-2.8); Alkaline Phosphatase 51 U/L (38-126); Aspartate Aminotransferase 18 IU/L (17-59); BUN Creatinine Ratio 17.5 (6-22); Blood Urea Nitrogen 14 mg/dL (9-20); Calcium 9.7 mg/dL (8.4-10.2); Carbon Dioxide 28 mmol/L (22-32); Chloride 106 mmol/L (98-107); Creatine Kinase 56 U/L (55-170); Estimated Glomerular Filt Rate > 60.0 mL/min (>60); Globulin 2.7 g/dL (1.7-4.1); Glucose 82 mg/dL (70-100); HEMOLYSIS < 15 (0-50); Potassium 3.9 mmol/L (3.4-5.1); Sodium 144 mmol/L (137-145); Total Protein 7.4 g/dL (6.3-8.2)
--- NOTE | 2018-10-31 13:17 | PC.NURSE ---
Patient sitting up on stretcher, slow to answer questions, but answering questions appropriately. Patient requesting oxycodone for generalized back pain. States he last had one 2 days ago. Labs drawn, IV fluids infusing. Patient with pain 0/10 now it's gone.
[2018-10-31 13:18] LABS: Ethanol (ETOH) < 10 mg/dL
[2018-10-31 13:29] LABS: Troponin I < 0.012 ng/mL (0.01-0.034)
--- NOTE | 2018-10-31 13:59 | ED.ALLEREA ---
HPI - Allergic Reaction General Chief complaint: Chest Pain Stated complaint: Chest Pain Time Seen by Provider: 10/31/18 12:46 Source: patient Mode of arrival: EMS Limitations: no limitations Related Data Home Medications Medication Instructions Recorded Confirmed ibuprofen [Advil] 400 mg PO QID PRN 12/14/17 07/15/18 aspirin 81 mg tablet,delayed 81 mg PO DAILY 01/19/18 07/15/18 release celecoxib PO .qday 07/15/18 07/15/18 duloxetine 60 mg capsule,delayed 60 mg PO DAILY 07/15/18 10/29/18 release lisinopril 20 mg tablet 20 mg PO DAILY 07/15/18 10/29/18 buspirone 5 mg PO BID 10/29/18 10/29/18 sertraline 50 mg PO DAILY 10/29/18 10/29/18 tizanidine 4 mg PO TID 10/29/18 10/29/18 Previous Rx's Medication Instructions Recorded metoprolol succinate ER 25 mg 25 mg PO DAILY #30 tab 01/19/18 tablet,extended release 24 hr hydroxyzine pamoate 50 mg capsule 50 mg PO QID #90 cap 02/27/18 Allergies Allergy/AdvReac Type Severity Reaction Status Date / Time No Known Drug Allergies Allergy Verified 07/15/18 10:14 Review of Systems Constitutional Denies chills, Denies fever(s), Denies lethargy and Denies weakness Eyes Denies change in vision, Denies eye discharge, Denies irritation and Denies loss of vision ENT Ears, Nose, Mouth, and Throat: Denies change in voice, Denies neck pain and Denies sore throat Cardiovascular Denies chest pain, Denies irregular heart rhythm, Denies lightheadedness, Denies palpitations, Denies dyspnea, Denies dyspnea on exertion and Denies orthopnea Respiratory Denies cough, Denies dyspnea, Denies dyspnea on exertion and Denies wheezing Gastrointestinal Gastrointestinal: Denies abdominal pain, Denies change in bowel habits, Denies diarrhea, Denies nausea and Denies vomiting Genitourinary Denies hematuria, Denies flank pain, Denies urinary incontinence and Denies urinary urgency Musculoskeletal Denies neck pain Integumentary/Breasts Denies pruritus, Denies erythema, Denies rash and Denies wounds Neurologic Denies confusion, Denies loss of vision and Denies weakness Psychiatric Denies anxiety, Denies confusion, Denies depression, Denies homicidal ideation and Denies suicidal ideation Endocrine Denies palpitations Hematologic/Lymphatic Denies easy bruising Allergic/Immunologic Denies wheezing [facility] Social History household members: family Smoking Status: Current every day smoker alcohol intake: former Exam Initial Vital Signs Initial Vital Signs: Vital Signs Temperature 98 F 10/31/18 12:45 Pulse Rate 58 L 10/31/18 12:45 Respiratory Rate 16 10/31/18 12:45 Blood Pressure 117/67 10/31/18 12:45 Pulse Oximetry 98 10/31/18 12:45 Course Orders Ordered: ED Orders 10/31/18 12:57 XR chest 1V Stat Complete Blood Count AUTO DIFF Stat Comprehensive Metabolic Panel Stat Troponin & CK Cardiac Panel Stat Urinalysis and Microscopic Stat 10/31/18 13:00 Ethanol (ETOH) Stat Urine Drug Screen, Rapid Stat Discontinued Medications Sodium Chloride (Normal Saline 0.9%) 1,000 mls @ 1,000 mls/hr IV BOLUS ONE Stop: 10/31/18 13:56 Last Admin: 10/31/18 13:12 Dose: 1,000 mls/hr Vital Signs - 8 hr 10/31/18 12:45 10/31/18 13:14 Temperature 98 F Pulse Rate 58 L 59 L Respiratory Rate 16 16 Blood Pressure 117/67 Blood Pressure [Left Arm] 121/62 Pulse Oximetry 98 98 MDM - Allergic Reaction Lab Data Result diagrams: 10/31/18 12:55 10/31/18 12:55 Lab Results 10/31/18 10/31/18 10/31/18 Range/Units 12:55 12:55 12:55 WBC 6.2 (4.5-11.0) X10^3/uL RBC 4.35 L (4.5-5.9) X10^6/uL Hgb 13.9 (13.5-17.5) g/dL Hct 40.5 L (41-53) % MCV 93.0 (80-100) fL MCH 31.9 (26-34) PG MCHC 34.2 (30-36) % RDW 14.0 (11.6-14.8) % Plt Count 195 (150-400) X10^3/uL Neut % (Auto) 61.3 (50-75) % Lymph % (Auto) 28.3 (25-40) % [place] % (Auto) 6.1 (3-14) % Eos % (Auto) 3.6 (2-4) % Baso % (Auto) 0.7 (0-2) % Neut # (Auto) 3800 (7674-6315) /uL Lymph # (Auto) 1800 (2335-2715) /uL [place] # (Auto) 400 (0-900) /uL Eos # (Auto) 200 (0-450) /uL Baso # (Auto) 0 (0-100) /uL Sodium 144 (137-145) mmol/L Potassium 3.9 (3.4-5.1) mmol/L Chloride 106 (98-107) mmol/L Carbon Dioxide 28 (22-32) mmol/L BUN 14 (9-20) mg/dL Creatinine 0.80 (0.66-1.25) mg/dL Estimated GFR > 60.0 (>60) mL/min BUN/Creatinine Ratio 17.5 (6-22) Glucose 82 (70-100) mg/dL Calcium 9.7 (8.4-10.2) mg/dL Total Bilirubin 1.0 (0.2-1.3) mg/dL AST 18 (17-59) IU/L ALT 27 (21-72) IU/L Alkaline Phosphatase 51 (38-126) U/L Total Creatine Kinase 56 (55-170) U/L CK-MB (CK-2) TNP CK-MB (CK-2) Rel Index TNP Troponin I < 0.012 (0.01-0.034) ng/mL Total Protein 7.4 (6.3-8.2) g/dL Albumin 4.7 (3.5-5.0) g/dL Globulin 2.7 (1.7-4.1) g/dL Albumin/Globulin Ratio 1.7 (1.0-2.8) Ethyl Alcohol < 10 mg/dL Discharge Plan Departure Prescriptions: No Action aspirin 81 mg tablet,delayed release (DR/EC) 81 mg PO DAILY RF: 0 metoprolol succinate 25 mg tablet extended release 24 hr 25 mg PO DAILY Qty: 30 RF: 5 hydroxyzine pamoate 50 mg capsule 50 mg PO QID Qty: 90 RF: 4 buspirone 5 mg Tablet 5 mg PO BID RF: 0 tizanidine 4 mg Tablet 4 mg PO TID RF: 0 sertraline 50 mg Tablet 50 mg PO DAILY RF: 0 ibuprofen [Advil] 200 mg Tablet 400 mg PO QID PRN (Reason: Pain (Scale Score 1-3)) RF: 0 lisinopril 20 mg tablet 20 mg PO DAILY RF: 0 duloxetine 60 mg capsule,delayed release(DR/EC) 60 mg PO DAILY RF: 0 celecoxib PO .qday RF: 0
[2018-10-31 14:00] VITALS: BP 121/73; PULSE 63; RESP 16; O2SAT 97
[2018-10-31] MEDS: OXYCODONE/ACETAMINOPHEN 5/325 TABLET 1 TAB PO (14:13)
--- NOTE | 2018-10-31 14:20 | ED.CHESTPAIN ---
HPI - Chest Pain General Chief Complaint: Chest Pain Stated Complaint: Chest Pain Time Seen by Provider: 10/31/18 12:46 Source: patient and EMS Mode of arrival: EMS Limitations: no limitations History of Present Illness HPI narrative: Patient is brought to the emergency department for substernal chest pain that started about 2 days ago. Patient states that he has had no shortness of breath or nausea. No abdominal pain. Patient has existing facial droop and left-sided weakness which 1st developed about 1 and half months ago, and is at baseline. The patient denies cough or fevers. He was just seen a couple of days ago for dizziness with a full, negative workup. Patient has a longstanding history of alcoholism, but states he has not been drinking in the last few months. Patient normally takes oxycodone, but states he has not had any in a couple of days. No other complaints at this time. Related Data Home Medications Medication Instructions Recorded Confirmed ibuprofen [Advil] 400 mg PO QID PRN 12/14/17 07/15/18 aspirin 81 mg tablet,delayed 81 mg PO DAILY 01/19/18 07/15/18 release celecoxib PO .qday 07/15/18 07/15/18 duloxetine 60 mg capsule,delayed 60 mg PO DAILY 07/15/18 10/29/18 release lisinopril 20 mg tablet 20 mg PO DAILY 07/15/18 10/29/18 buspirone 5 mg PO BID 10/29/18 10/29/18 sertraline 50 mg PO DAILY 10/29/18 10/29/18 tizanidine 4 mg PO TID 10/29/18 10/29/18 Previous Rx's Medication Instructions Recorded metoprolol succinate ER 25 mg 25 mg PO DAILY #30 tab 01/19/18 tablet,extended release 24 hr hydroxyzine pamoate 50 mg capsule 50 mg PO QID #90 cap 02/27/18 oxycodone-acetaminophen [Percocet] 1 tab PO Q4-6H PRN #2 tab 10/31/18 Allergies Allergy/AdvReac Type Severity Reaction Status Date / Time No Known Drug Allergies Allergy Verified 07/15/18 10:14 Review of Systems Constitutional Denies chills, Denies fever(s), Denies lethargy and Denies weakness Eyes Denies change in vision, Denies eye discharge, Denies irritation and Denies loss of vision ENT Ears, Nose, Mouth, and Throat: Denies change in voice, Denies neck pain and Denies sore throat Cardiovascular Reports chest pain, Denies irregular heart rhythm, Denies lightheadedness, Denies palpitations, Denies dyspnea, Denies dyspnea on exertion and Denies orthopnea Respiratory Denies cough, Denies dyspnea, Denies dyspnea on exertion and Denies wheezing Gastrointestinal Gastrointestinal: Denies abdominal pain, Denies change in bowel habits, Denies diarrhea, Denies nausea and Denies vomiting Genitourinary Denies hematuria, Denies flank pain, Denies urinary incontinence and Denies urinary urgency Musculoskeletal Denies neck pain Integumentary/Breasts Denies pruritus, Denies erythema, Denies rash and Denies wounds Neurologic Denies confusion, Denies loss of vision and Denies weakness Psychiatric Denies anxiety, Denies confusion, Denies depression, Denies homicidal ideation and Denies suicidal ideation Endocrine Denies palpitations Hematologic/Lymphatic Denies easy bruising Allergic/Immunologic Denies wheezing [facility] Medical History Coronary artery disease (Acute) Discitis (Acute) 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) Anxiety (Chronic) HTN (hypertension) (Chronic) Surgical History S/P CABG x 4 (Acute) No pertinent past surgical history (Chronic) Social History household members: family Smoking Status: Current every day smoker alcohol intake: former Social History household members: family Smoking Status: Current every day smoker alcohol intake: former Exam Initial Vital Signs Initial Vital Signs: Vital Signs Temperature 98 F 10/31/18 12:45 Pulse Rate 58 L 10/31/18 12:45 Respiratory Rate 16 10/31/18 12:45 Blood Pressure 117/67 10/31/18 12:45 Pulse Oximetry 98 10/31/18 12:45 Const General: cooperative and well developed Nutritional Appearance: well nourished Orientation: alert, awake, oriented x3 and not confused Other: Patient has very slow responses, but responses are otherwise appropriate. [facility] Head: normocephalic and atraumatic Ears: external ears normal Nose: external nose normal and No nasal discharge Face and sinus: face symmetric and No dry mucous membranes Mouth: oral mucosae normal and moist mucous membranes Teeth and gingiva: dentition normal Eyes General: appearance normal, both eyes and all related structures Eyelids: eyelids normal Conjunctivae: conjunctivae normal Sclera: sclerae normal Pupils: PERRL EOM: EOM intact bilaterally Neck Neck: normal visual inspection, trachea midline, No lymphadenopathy, No midline deformity and No JVD Lymphatic: No lymphedema Chest Chest: normal inspection of the chest Resp Effort & Inspection: normal respiratory effort, able to speak in complete sentences, no respiratory distress and no use of accessory muscles Auscultation: clear to auscultation bilaterally, no rales, no rhonchi and no wheezes Cardio Rate: regular rate Rhythm: regular rhythm Heart Sounds: no click, no gallops, no murmurs and no rubs Pulses: normal peripheral pulses GI Inspection: non-distended Palpation: soft, no hepatosplenomegaly, No guarding, No pulsatile mass and No tender Auscultation: normal bowel sounds Back/Spine/Pelvis Back: No CVA tenderness Cervical Spine: cervical ROM normal and No pain with cervical ROM Thoracic/Lumbar Spine: thoracic and lumbar spine normal to inspection Skin General: no rashes or lesions noted, No jaundice and No petechiae Neuro General: alert, awake, oriented x3 and gait normal (Slow) Speech: speech normal Motor: muscle tone normal throughout Other: Patient has slow movement and slow responses in general. He uses his left arm slightly less than the right, and has a mild facial droop on left, as well. Extrem General: full ROM, no clubbing, cyanosis or edema, no pedal edema and no calf tenderness Psych Appearance: well kempt Mental Status: mental status grossly normal Attitude: cooperative Thought Content: normal and suicidality Judgment: judgment good Course Course Narrative: I reviewed the patient's records, and found that the neurologic symptoms worsened. Patient was just seen here couple of days ago and had labs and CT scan of the head, which were unremarkable. Patient's workup today was also negative. His chest pain had been going on for couple of days, and did not feel that this was likely to be cardiac ischemia with a still negative troponin. I discussed with the patient the need for follow-up, as well as the usual indications for return. Patient is stable for discharge home. Orders Ordered: ED Orders 10/31/18 12:55 Complete Blood Count AUTO DIFF Stat Comprehensive Metabolic Panel Stat Ethanol (ETOH) Stat Troponin & CK Cardiac Panel Stat 10/31/18 12:57 XR chest 1V Stat Discontinued Medications Sodium Chloride (Normal Saline 0.9%) 1,000 mls @ 1,000 mls/hr IV BOLUS ONE Stop: 10/31/18 13:56 Last Infusion: 10/31/18 14:07 Dose: 0 mls/hr Admin: 10/31/18 13:12 Dose: 1,000 mls/hr Oxycodone/Acetaminophen (Percocet 5/325) 1 tab PO NOW ONE Stop: 10/31/18 14:07 Last Admin: 10/31/18 14:13 Dose: 1 tab Vital Signs - 8 hr 10/31/18 12:45 10/31/18 13:14 10/31/18 14:00 Temperature 98 F Pulse Rate 58 L 59 L 63 Respiratory Rate 16 16 16 Blood Pressure 117/67 Blood Pressure [Left Arm] 121/62 121/73 Pulse Oximetry 98 98 97 MDM - Chest Pain Medical Records Data Attestation: I reviewed the patient's medical records. Lab Data Attestation: I reviewed the patient's lab results. Result diagrams: 10/31/18 12:55 10/31/18 12:55 Lab Results 10/31/18 10/31/18 10/31/18 Range/Units 12:55 12:55 12:55 WBC 6.2 (4.5-11.0) X10^3/uL RBC 4.35 L (4.5-5.9) X10^6/uL Hgb 13.9 (13.5-17.5) g/dL Hct 40.5 L (41-53) % MCV 93.0 (80-100) fL MCH 31.9 (26-34) PG MCHC 34.2 (30-36) % RDW 14.0 (11.6-14.8) % Plt Count 195 (150-400) X10^3/uL Neut % (Auto) 61.3 (50-75) % Lymph % (Auto) 28.3 (25-40) % [place] % (Auto) 6.1 (3-14) % Eos % (Auto) 3.6 (2-4) % Baso % (Auto) 0.7 (0-2) % Neut # (Auto) 3800 (3394-7835) /uL Lymph # (Auto) 1800 (3385-3512) /uL [place] # (Auto) 400 (0-900) /uL Eos # (Auto) 200 (0-450) /uL Baso # (Auto) 0 (0-100) /uL Sodium 144 (137-145) mmol/L Potassium 3.9 (3.4-5.1) mmol/L Chloride 106 (98-107) mmol/L Carbon Dioxide 28 (22-32) mmol/L BUN 14 (9-20) mg/dL Creatinine 0.80 (0.66-1.25) mg/dL Estimated GFR > 60.0 (>60) mL/min BUN/Creatinine Ratio 17.5 (6-22) Glucose 82 (70-100) mg/dL Calcium 9.7 (8.4-10.2) mg/dL Total Bilirubin 1.0 (0.2-1.3) mg/dL AST 18 (17-59) IU/L ALT 27 (21-72) IU/L Alkaline Phosphatase 51 (38-126) U/L Total Creatine Kinase 56 (55-170) U/L CK-MB (CK-2) TNP CK-MB (CK-2) Rel Index TNP Troponin I < 0.012 (0.01-0.034) ng/mL Total Protein 7.4 (6.3-8.2) g/dL Albumin 4.7 (3.5-5.0) g/dL Globulin 2.7 (1.7-4.1) g/dL Albumin/Globulin Ratio 1.7 (1.0-2.8) Ethyl Alcohol < 10 mg/dL Imaging Data Chest x-ray: Radiologist's impression: PROCEDURE: XR CHEST 1V INDICATIONS: chest pain TECHNIQUE: One view of the chest was acquired. COMPARISON: [facility], , CHEST 2 VIEW, 08/14/2010, 6:27. [facility], , XR CHEST 1V, 01/10/2018, 19:52. [facility], , XR CHEST 1V, 10/29/2018, 10:35. FINDINGS: Surgical changes and devices: Post CABG changes are seen. Lungs and pleura: Likely scarring or persistent atelectasis can be seen involving the left midlung. No definite superimposed infiltrates are seen. No pleural effusions or pneumothorax. Mediastinum: Mediastinal contours appear normal. Heart size is normal. Bones and chest wall: No suspicious bony lesions. Age-appropriate bony degenerative changes are seen. Overlying soft tissues appear unremarkable. IMPRESSION: Stable chest plain film. Dictated by: Pavan Solomon M.D. on 10/31/2018 at 12:26 Approved by: Pavan Solomon M.D. on 10/31/2018 at 12:27 Discharge Plan Departure Patient Disposition: Home Clinical Impression: Chest pain Qualifiers: Chest pain type: unspecified Qualified Code(s): R07.9 - Chest pain, unspecified Discharge Date/Time: 10/31/18 14:41 Interventions: ED Discharge Assessment Last Done: 10/31/18 14:30 Instructions: DI for Chest Pain Activity Restrictions/Additional Instructions: All of your labs look good, as does your x-ray. You just had a head CT 2 days ago, which showed no evidence of a new stroke or any bleeding in your brain. Please follow up with your primary doctor for further concerns. There is no evidence of a heart attack or other serious cause of chest pain today. Prescriptions: New oxycodone-acetaminophen [Percocet] 5-325 mg tablet 1 tab PO Q4-6H PRN (Reason: pain) Qty: 2 RF: 0 No Action aspirin 81 mg tablet,delayed release (DR/EC) 81 mg PO DAILY RF: 0 metoprolol succinate 25 mg tablet extended release 24 hr 25 mg PO DAILY Qty: 30 RF: 5 hydroxyzine pamoate 50 mg capsule 50 mg PO QID Qty: 90 RF: 4 buspirone 5 mg Tablet 5 mg PO BID RF: 0 tizanidine 4 mg Tablet 4 mg PO TID RF: 0 sertraline 50 mg Tablet 50 mg PO DAILY RF: 0 ibuprofen [Advil] 200 mg Tablet 400 mg PO QID PRN (Reason: Pain (Scale Score 1-3)) RF: 0 lisinopril 20 mg tablet 20 mg PO DAILY RF: 0 duloxetine 60 mg capsule,delayed release(DR/EC) 60 mg PO DAILY RF: 0 celecoxib PO .qday RF: 0 Referrals: Brooke Coulter PA-C [Primary Care Provider] -
--- NOTE | 2018-10-31 14:29 | ED_ITS ---
HPI - Chest Pain General Chief Complaint: Chest Pain Stated Complaint: Chest Pain Time Seen by Provider: 10/31/18 12:46 Source: patient and EMS Mode of arrival: EMS Limitations: no limitations History of Present Illness HPI narrative: Patient is brought to the emergency department for substernal chest pain that started about 2 days ago. Patient states that he has had no shortness of breath or nausea. No abdominal pain. Patient has existing facial droop and left-sided weakness which 1st developed about 1 and half months ago, and is at baseline. The patient denies cough or fevers. He was just seen a couple of days ago for dizziness with a full, negative workup. Patient has a longstanding history of alcoholism, but states he has not been drinking in the last few months. Patient normally takes oxycodone, but states he has not had any in a couple of days. No other complaints at this time. Related Data Home Medications Medication Instructions Recorded Confirmed ibuprofen [Advil] 400 mg PO QID PRN 12/14/17 07/15/18 aspirin 81 mg tablet,delayed 81 mg PO DAILY 01/19/18 07/15/18 release celecoxib PO .qday 07/15/18 07/15/18 duloxetine 60 mg capsule,delayed 60 mg PO DAILY 07/15/18 10/29/18 release lisinopril 20 mg tablet 20 mg PO DAILY 07/15/18 10/29/18 buspirone 5 mg PO BID 10/29/18 10/29/18 sertraline 50 mg PO DAILY 10/29/18 10/29/18 tizanidine 4 mg PO TID 10/29/18 10/29/18 Previous Rx's Medication Instructions Recorded metoprolol succinate ER 25 mg 25 mg PO DAILY #30 tab 01/19/18 tablet,extended release 24 hr hydroxyzine pamoate 50 mg capsule 50 mg PO QID #90 cap 02/27/18 oxycodone-acetaminophen [Percocet] 1 tab PO Q4-6H PRN #2 tab 10/31/18 Allergies Allergy/AdvReac Type Severity Reaction Status Date / Time No Known Drug Allergies Allergy Verified 07/15/18 10:14 Review of Systems Constitutional Denies chills, Denies fever(s), Denies lethargy and Denies weakness Eyes Denies change in vision, Denies eye discharge, Denies irritation and Denies loss of vision ENT Ears, Nose, Mouth, and Throat: Denies change in voice, Denies neck pain and Denies sore throat Cardiovascular Reports chest pain, Denies irregular heart rhythm, Denies lightheadedness, Denies palpitations, Denies dyspnea, Denies dyspnea on exertion and Denies orthopnea Respiratory Denies cough, Denies dyspnea, Denies dyspnea on exertion and Denies wheezing Gastrointestinal Gastrointestinal: Denies abdominal pain, Denies change in bowel habits, Denies diarrhea, Denies nausea and Denies vomiting Genitourinary Denies hematuria, Denies flank pain, Denies urinary incontinence and Denies urinary urgency Musculoskeletal Denies neck pain Integumentary/Breasts Denies pruritus, Denies erythema, Denies rash and Denies wounds Neurologic Denies confusion, Denies loss of vision and Denies weakness Psychiatric Denies anxiety, Denies confusion, Denies depression, Denies homicidal ideation and Denies suicidal ideation Endocrine Denies palpitations Hematologic/Lymphatic Denies easy bruising Allergic/Immunologic Denies wheezing [facility] Medical History Coronary artery disease (Acute) Discitis (Acute) 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) Anxiety (Chronic) HTN (hypertension) (Chronic) Surgical History S/P CABG x 4 (Acute) No pertinent past surgical history (Chronic) Social History household members: family Smoking Status: Current every day smoker alcohol intake: former Social History household members: family Smoking Status: Current every day smoker alcohol intake: former Exam Initial Vital Signs Initial Vital Signs: Vital Signs Temperature 98 F 10/31/18 12:45 Pulse Rate 58 L 10/31/18 12:45 Respiratory Rate 16 10/31/18 12:45 Blood Pressure 117/67 10/31/18 12:45 Pulse Oximetry 98 10/31/18 12:45 Const General: cooperative and well developed Nutritional Appearance: well nourished Orientation: alert, awake, oriented x3 and not confused Other: Patient has very slow responses, but responses are otherwise appropriate. [facility] Head: normocephalic and atraumatic Ears: external ears normal Nose: external nose normal and No nasal discharge Face and sinus: face symmetric and No dry mucous membranes Mouth: oral mucosae normal and moist mucous membranes Teeth and gingiva: dentition normal Eyes General: appearance normal, both eyes and all related structures Eyelids: eyelids normal Conjunctivae: conjunctivae normal Sclera: sclerae normal Pupils: PERRL EOM: EOM intact bilaterally Neck Neck: normal visual inspection, trachea midline, No lymphadenopathy, No midline deformity and No JVD Lymphatic: No lymphedema Chest Chest: normal inspection of the chest Resp Effort & Inspection: normal respiratory effort, able to speak in complete sentences, no respiratory distress and no use of accessory muscles Auscultation: clear to auscultation bilaterally, no rales, no rhonchi and no wheezes Cardio Rate: regular rate Rhythm: regular rhythm Heart Sounds: no click, no gallops, no murmurs and no rubs Pulses: normal peripheral pulses GI Inspection: non-distended Palpation: soft, no hepatosplenomegaly, No guarding, No pulsatile mass and No tender Auscultation: normal bowel sounds Back/Spine/Pelvis Back: No CVA tenderness Cervical Spine: cervical ROM normal and No pain with cervical ROM Thoracic/Lumbar Spine: thoracic and lumbar spine normal to inspection Skin General: no rashes or lesions noted, No jaundice and No petechiae Neuro General: alert, awake, oriented x3 and gait normal (Slow) Speech: speech normal Motor: muscle tone normal throughout Other: Patient has slow movement and slow responses in general. He uses his le ft arm slightly less than the right, and has a mild facial droop on left, as well. Extrem General: full ROM, no clubbing, cyanosis or edema, no pedal edema and no calf tenderness Psych Appearance: well kempt Mental Status: mental status grossly normal Attitude: cooperative Thought Content: normal and suicidality Judgment: judgment good Course Course Narrative: I reviewed the patient's records, and found that the neurologic symptoms worsened. Patient was just seen here couple of days ago and had labs and CT scan of the head, which were unremarkable. Patient's workup today was also negative. His chest pain had been going on for couple of days, and did not feel that this was likely to be cardiac ischemia with a still negat darryl troponin. I discussed with the patient the need for follow-up, as well as the usual indications for return. Patient is stable for discharge home. Orders Ordered: ED Orders 10/31/18 12:55 Complete Blood Count AUTO DIFF Stat Comprehensive Metabolic Panel Stat Ethanol (ETOH) Stat Troponin & CK Cardiac Panel Stat 10/31/18 12:57 XR chest 1V Stat Discontinued Medications Sodium Chloride (Normal Saline 0.9%) 1,000 mls @ 1,000 mls/hr IV BOLUS ONE Stop: 10/31/18 13:56 Last Infusion: 10/31/18 14:07 Dose: 0 mls/hr Admin: 10/31/18 13:12 Dose: 1,000 mls/hr Oxycodone/Acetaminophen (Percocet 5/325) 1 tab PO NOW ONE Stop: 10/31/18 14:07 Last Admin: 10/31/18 14:13 Dose: 1 tab Vital Signs - 8 hr 10/31/18 12:45 10/31/18 13:14 10/31/18 14:00 Temperature 98 F Pulse Rate 58 L 59 L 63 Respiratory Rate 16 16 16 Blood Pressure 117/67 Blood Pressure [Left Arm] 121/62 121/73 Pulse Oximetry 98 98 97 MDM - Chest Pain Medical Records Data Attestation: I reviewed the patient's medical records. Lab Data Attestation: I reviewed the patient's lab results. Result diagrams: 10/31/18 12:55 10/31/18 12:55 Lab Results 10/31/18 10/31/18 10/31/18 Range/Units 12:55 12:55 12:55 WBC 6.2 (4.5-11.0) X10^3/uL RBC 4.35 L (4.5-5.9) X10^6/uL Hgb 13.9 (13.5-17.5) g/dL Hct 40.5 L (41-53) % MCV 93.0 (80-100) fL MCH 31.9 (26-34) PG MCHC 34.2 (30-36) % RDW 14.0 (11.6-14.8) % Plt Count 195 (150-400) X10^3/uL Neut % (Auto) 61.3 (50-75) % Lymph % (Auto) 28.3 (25-40) % [place] % (Auto) 6.1 (3-14) % Eos % (Auto) 3.6 (2-4) % Baso % (Auto) 0.7 (0-2) % Neut # (Auto) 3800 (4828-3183) /uL Lymph # (Auto) 1800 (2830-2334) /uL [place] # (Auto) 400 (0-900) /uL Eos # (Auto) 200 (0-450) /uL Baso # (Auto) 0 (0-100) /uL Sodium 144 (137-145) mmol/L Potassium 3.9 (3.4-5.1) mmol/L Chloride 106 (98-107) mmol/L Carbon Dioxide 28 (22-32) mmol/L BUN 14 (9-20) mg/dL Creatinine 0.80 (0.66-1.25) mg/dL Estimated GFR > 60.0 (>60) mL/min BUN/Creatinine Ratio 17.5 (6-22) Glucose 82 (70-100) mg/dL Calcium 9.7 (8.4-10.2) mg/dL Total Bilirubin 1.0 (0.2-1.3) mg/dL AST 18 (17-59) IU/L ALT 27 (21-72) IU/L Alkaline Phosphatase 51 (38-126) U/L Total Creatine Kinase 56 (55-170) U/L CK-MB (CK-2) TNP CK-MB (CK-2) Rel Index TNP Troponin I < 0.012 (0.01-0.034) ng/mL Total Protein 7.4 (6.3-8.2) g/dL Albumin 4.7 (3.5-5.0) g/dL Globulin 2.7 (1.7-4.1) g/dL Albumin/Globulin Ratio 1.7 (1.0-2.8) Ethyl Alcohol < 10 mg/dL Imaging Data Chest x-ray: Radiologist's impression: PROCEDURE: XR CHEST 1V INDICATIONS: chest pain TECHNIQUE: One view of the chest was acquired. COMPARISON: [facility], , CHEST 2 VIEW, 08/14/2010, 6:27. [facility], , XR CHEST 1V, 01/10/2018, 19:52. [facility], , XR CHEST 1V, 10/29/2018, 10:35. FINDINGS: Surgical changes and devices: Post CABG changes are seen. Lungs and pleura: Likely scarring or persistent atelectasis can be seen involving the left midlung. No definite superimposed infiltrates are seen. No pleural effusions or pneumothorax. Mediastinum: Mediastinal contours appear normal. Heart size is normal. Bones and chest wall: No suspicious bony lesions. Age-appropriate bony degenerative changes are seen. Overlying soft tissues appear unremarkable. IMPRESSION: Stable chest plain film. Dictated by: Pavan Solomon M.D. on 10/31/2018 at 12:26 Approved by: Pavan Solomon M.D. on 10/31/2018 at 12:27 Discharge Plan Departure Patient Disposition: Home Clinical Impression: Chest pain Qualifiers: Chest pain type: unspecified Qualified Code(s): R07.9 - Chest pain, unspecified Discharge Date/Time: 10/31/18 14:41 Interventions: ED Discharge Assessment Last Done: 10/31/18 14:30 Instructions: DI for Chest Pain Activity Restrictions/Additional Instructions: All of your labs look good, as does your x-ray. You just had a head CT 2 days ago, which showed no evidence of a new stroke or any bleeding in your brain. Please follow up with your primary doctor for further concerns. There is no e vidence of a heart attack or other serious cause of chest pain today. Prescriptions: New oxycodone-acetaminophen [Percocet] 5-325 mg tablet 1 tab PO Q4-6H PRN (Reason: pain) Qty: 2 RF: 0 No Action aspirin 81 mg tablet,delayed release (DR/EC) 81 mg PO DAILY RF: 0 metoprolol succinate 25 mg tablet extended release 24 hr 25 mg PO DAILY Qty: 30 RF: 5 hydroxyzine pamoate 50 mg capsule 50 mg PO QID Qty: 90 RF: 4 buspirone 5 mg Tablet 5 mg PO BID RF: 0 tizanidine 4 mg Tablet 4 mg PO TID RF: 0 sertraline 50 mg Tablet 50 mg PO DAILY RF: 0 ibuprofen [Advil] 200 mg Tablet 400 mg PO QID PRN (Reason: Pain (Scale Score 1-3)) RF: 0 lisinopril 20 mg tablet 20 mg PO DAILY RF: 0 duloxetine 60 mg capsule,delayed release(DR/EC) 60 mg PO DAILY RF: 0 celecoxib PO .qday RF: 0 Referrals: Brooke Coulter PA-C [Primary Care Provider] -
== END 2018-10-31 14:41 | disposition home or self-care (01) ==
PROVIDERS: Emergency Provider Emergency Medicine; PCP Student in an Organized Health Care Education/Training Program
DX: R07.9 Chest pain, unspecified (principal)
CPT/HCPCS: 36415; 71045; 80053; 80320; 82550; 84484; 85025; 93005; 96360; 99283; 99284

== ENCOUNTER 2018-11-07 13:32 | Emergency (ER) | payer OTHER, SELFPAY ==
[2018-01-11 08:55] VITALS: BMI 25.8
[2018-11-07 13:39] VITALS: BP 183/84; PULSE 67; RESP 18; TEMP 36.8; O2SAT 98; BMI 26.2
--- NOTE | 2018-11-07 13:44 | DI.RAD.S_ITS ---
PROCEDURE: XR CHEST 1V INDICATIONS: chest pain TECHNIQUE: One view of the chest was acquired. COMPARISON: [facility], CR, XR CHEST 1V, 10/31/2018, 13:03. FINDINGS: Surgical changes and devices: Patient is status post median sternotomy and CABG. Lungs and pleura: Lungs are clear. No pleural effusions or pneumothorax. Mediastinum: Mediastinal contours appear normal. Heart size is normal. Bones and chest wall: No suspicious bony lesions. Overlying soft tissues appear unremarkable. IMPRESSION: No acute cardiopulmonary findings. Dictated by: Joseline Hernández M.D. on 11/07/2018 at 12:58 Approved by: Joseline Hernández M.D. on 11/07/2018 at 12:59
[2018-11-07] MEDS: ASPIRIN 81 MG TAB 324 MG PO (13:49)
[2018-11-07] MEDS: SODIUM CHLORIDE 0.9% 1,000 ML 150 ML IV (13:49)
[2018-11-07 14:07] LABS: Add Manual Diff / Slide Review NO; Basophils Absolute Auto 100 /uL (0-100); Basophils Percent Auto 0.8 % (0-2); Eosinophils Absolute Auto 200 /uL (0-450); Eosinophils Percent Auto 2.2 % (2-4); Hemoglobin 14.6 g/dL (13.5-17.5); Lymphocytes Absolute Auto 1400 /uL (1100-4500); Mean Corpuscular HGB Conc 34.7 % (30-36); Mean Corpuscular Hemoglobin 31.6 PG (26-34); Monocytes Absolute Auto 400 /uL (0-900); Monocytes Percent Auto 5.8 % (3-14); Neutrophils Absolute Auto 5000 /uL (1500-7000); Neutrophils Percent Auto 71.2 % (50-75); Platelet Count 200 X10^3/uL (150-400); Red Blood Cell Count 4.62 X10^6/uL (4.5-5.9); Red Cell Distribution Width 13.3 % (11.6-14.8); White Blood Cell Count 7.1 X10^3/uL (4.5-11.0)
[2018-11-07 14:18] LABS: Alanine Aminotransferase 18 IU/L (21-72); Albumin 4.8 g/dL (3.5-5.0); Albumin Globulin Ratio 1.5 (1.0-2.8); Alkaline Phosphatase 50 U/L (38-126); Aspartate Aminotransferase 18 IU/L (17-59); BUN Creatinine Ratio 24.3 (6-22); Bilirubin Total 0.6 mg/dL (0.2-1.3); Blood Urea Nitrogen 17 mg/dL (9-20); Calcium 10.1 mg/dL (8.4-10.2); Carbon Dioxide 27 mmol/L (22-32); Chloride 105 mmol/L (98-107); Creatine Kinase 63 U/L (55-170); Estimated Glomerular Filt Rate > 60.0 mL/min (>60); Globulin 3.1 g/dL (1.7-4.1); Glucose 96 mg/dL (70-100); HEMOLYSIS < 15 (0-50); Lipase 39 U/L (23-300); Potassium 4.3 mmol/L (3.4-5.1); Sodium 141 mmol/L (137-145); Total Protein 7.9 g/dL (6.3-8.2)
[2018-11-07 14:30] LABS: Troponin I < 0.012 ng/mL (0.01-0.034)
--- NOTE | 2018-11-07 14:33 | PC.NURSE ---
Pt found in room with SPO2 and BP cuff off. Explained need for continued monitoring given pts HX of 4 way bypass and here with cp.
[2018-11-07] MEDS: KETOROLAC 60 MG/2 ML VIAL 15 MG IV (14:39)
--- NOTE | 2018-11-07 14:41 | ED_ITS ---
HPI - Chest Pain General Chief Complaint: Chest Pain Stated Complaint: chest pain x2 days Time Seen by Provider: 11/07/18 13:35 Source: patient Mode of arrival: ambulatory Limitations: no limitations History of Present Illness HPI narrative: 53-year-old male with cardiac history presents with chest pain for the past 2 days. He states it is moderate in intensity, denies any radiation, obvious provocation or palliation. He denies associated symptoms such as nausea, vomiting, sweating or increasing fatigue. He states this happens frequently when he becomes anxious, he states he ran out of his lorazepam 2 days ago. complaint: chest pain Onset (ago): day(s) Duration: constant Onset: other Pain location: substernal Severity: moderate Quality: aching Pain radiation: none Relieving factors: nothing Exacerbating factors: nothing Treatments prior to arrival chest pain: none Related Data Home Medications Medication Instructions Recorded Confirmed ibuprofen [Advil] 400 mg PO QID PRN 12/14/17 07/15/18 aspirin 81 mg tablet,delayed 81 mg PO DAILY 01/19/18 07/15/18 release celecoxib PO .qday 07/15/18 07/15/18 duloxetine 60 mg capsule,delayed 60 mg PO DAILY 07/15/18 10/29/18 release lisinopril 20 mg tablet 20 mg PO DAILY 07/15/18 10/29/18 buspirone 5 mg PO BID 10/29/18 10/29/18 sertraline 50 mg PO DAILY 10/29/18 10/29/18 tizanidine 4 mg PO TID 10/29/18 10/29/18 Previous Rx's Medication Instructions Recorded metoprolol succinate ER 25 mg 25 mg PO DAILY #30 tab 01/19/18 tablet,extended release 24 hr hydroxyzine pamoate 50 mg capsule 50 mg PO QID #90 cap 02/27/18 oxycodone-acetaminophen [Percocet] 1 tab PO Q4-6H PRN #2 tab 10/31/18 clonazepam 0.25 mg PO BID #14 tab 11/07/18 Allergies Allergy/AdvReac Type Severity Reaction Status Date / Time No Known Drug Allergies Allergy Verified 07/15/18 10:14 Review of Systems Constitutional Denies chills, Denies fever(s), Denies lethargy and Denies weakness Eyes Denies change in vision, Denies eye discharge, Denies irritation and Denies loss of vision ENT Ears, Nose, Mouth, and Throat: Denies change in voice, Denies neck pain and Denies sore throat Cardiovascular Reports chest pain, Denies irregular heart rhythm, Denies lightheadedness, Denies palpitations, Denies dyspnea, Denies dyspnea on exertion and Denies orthopnea Respiratory Denies cough, Denies dyspnea, Denies dyspnea on exertion and Denies wheezing Gastrointestinal Gastrointestinal: Denies abdominal pain, Denies change in bowel habits, Denies diarrhea, Denies nausea and Denies vomiting Genitourinary Denies hematuria, Denies flank pain, Denies urinary incontinence and Denies urinary urgency Musculoskeletal Denies neck pain Integumentary/Breasts Denies pruritus, Denies erythema, Denies rash and Denies wounds Neurologic Denies confusion, Denies loss of vision and Denies weakness Psychiatric Denies anxiety, Denies confusion, Denies depression, Denies homicidal ideation and Denies suicidal ideation Endocrine Denies palpitations Hematologic/Lymphatic Denies easy bruising Allergic/Immunologic Denies wheezing FORMERLY [facility], [facility] Medical History Coronary artery disease (Acute) Discitis (Acute) 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 Normocephalic. No temporal or scalp tenderness. EYES: Pupils equal round and reactive. Extraocular motions intact. No scleral icterus. No injection or drainage. ENT: Nose without bleeding, purulent drainage or septal hematoma. Throat without erythema, tonsillar hypertrophy or exudate. Uvula midline. Airway patent. NECK: Trachea midline. No JVD or lymphadenopathy. Supple, nontender, no meningeal signs. CARDIOVASCULAR: Regular rate and rhythm without murmurs, gallops, or rubs. RESPIRATORY: Clear to auscultation. Breath sounds equal bilaterally. No wheezes, rales, or rhonchi. GASTROINTESTINAL: Abdomen soft, non-tender, nondistended. No hepato- splenomegaly, or palpable masses. No guarding. EXTREMITIES: No clubbing, cyanosis, or edema. No joint tenderness, effusion, or edema noted. BACK: Nontender without deformity or crepitance. No flank tenderness. NEURO: AOx3. SKIN: No rash or erythema. Initial Vital Signs Initial Vital Signs: Vital Signs Temperature 98.2 F 11/07/18 13:39 Pulse Rate 67 11/07/18 13:39 Respiratory Rate 18 11/07/18 13:39 Blood Pressure 183/84 H 11/07/18 13:39 Pulse Oximetry 98 11/07/18 13:39 Scores HEART Score Heart Score history: Slightly Suspicious Heart Score EKG: Non-Specific repolarization disturbance Heart Score Age: 45-64 years old Heart Score risk factors: > 3 risk factors or hx of atherosclerotic disease Heart Score troponin: < or = to normal limit Heart Score Total: 4 Course Orders Ordered: ED Orders 11/07/18 13:38 EKG-12 Lead Routine 11/07/18 13:44 XR chest 1V Stat 11/07/18 13:55 Complete Blood Count AUTO DIFF Stat Comprehensive Metabolic Panel Stat Lipase Stat Troponin & CK Cardiac Panel Stat 11/07/18 14:20 Urine Microscopic Stat 11/07/18 15:01 EKG-12 Lead Routine 11/07/18 16:10 Troponin I Stat Discontinued Medications Acetaminophen (Tylenol) 650 mg PO NOW ONE Stop: 11/07/18 15:15 Last Admin: 11/07/18 15:16 Dose: 650 mg Aspirin (Aspirin Chew) 324 mg PO NOW ONE Stop: 11/07/18 13:45 Last Admin: 11/07/18 13:49 Dose: 324 mg Sodium Chloride (Normal Saline 0.9%) 1,000 mls @ 150 mls/hr IV CONT LEONA Last Infusion: 11/07/18 16:50 Dose: 0 mls/hr Admin: 11/07/18 13:49 Dose: 150 mls/hr Ketorolac Tromethamine (Toradol) 15 mg IV NOW ONE Stop: 11/07/18 14:39 Last Admin: 11/07/18 14:39 Dose: 15 mg Ketorolac Tromethamine (Toradol) 15 mg IV NOW ONE Stop: 11/07/18 14:42 Last Admin: 11/07/18 14:44 Dose: Not Given Vital Signs - 8 hr 11/07/18 13:39 11/07/18 15:30 11/07/18 16:53 Temperature 98.2 F Pulse Rate 67 61 57 L Respiratory Rate 18 14 17 Blood Pressure 183/84 H Blood Pressure [Left Arm] 186/87 H 179/76 H Pulse Oximetry 98 100 100 MDM - Chest Pain Lab Data Result diagrams: 11/07/18 13:55 11/07/18 13:55 Lab Results 11/07/18 11/07/18 11/07/18 Range/Units 13:55 13:55 14:20 WBC 7.1 (4.5-11.0) X10^3/uL RBC 4.62 (4.5-5.9) X10^6/uL Hgb 14.6 (13.5-17.5) g/dL Hct 42.0 (41-53) % MCV 91.0 (80-100) fL MCH 31.6 (26-34) PG MCHC 34.7 (30-36) % RDW 13.3 (11.6-14.8) % Plt Count 200 (150-400) X10^3/uL Neut % (Auto) 71.2 (50-75) % Lymph % (Auto) 20.0 L (25-40) % [place] % (Auto) 5.8 (3-14) % Eos % (Auto) 2.2 (2-4) % Baso % (Auto) 0.8 (0-2) % Neut # (Auto) 5000 (6039-5897) /uL Lymph # (Auto) 1400 (8280-7912) /uL [place] # (Auto) 400 (0-900) /uL Eos # (Auto) 200 (0-450) /uL Baso # (Auto) 100 (0-100) /uL Sodium 141 (137-145) mmol/L Potassium 4.3 (3.4-5.1) mmol/L Chloride 105 (98-107) mmol/L Carbon Dioxide 27 (22-32) mmol/L BUN 17 (9-20) mg/dL Creatinine 0.70 (0.66-1.25) mg/dL Estimated GFR > 60.0 (>60) mL/min BUN/Creatinine Ratio 24.3 H (6-22) Glucose 96 (70-100) mg/dL Calcium 10.1 (8.4-10.2) mg/dL Total Bilirubin 0.6 (0.2-1.3) mg/dL AST 18 (17-59) IU/L ALT 18 L (21-72) IU/L Alkaline Phosphatase 50 (38-126) U/L Total Creatine Kinase 63 (55-170) U/L CK-MB (CK-2) TNP CK-MB (CK-2) Rel Index TNP Troponin I < 0.012 (0.01-0.034) ng/mL Total Protein 7.9 (6.3-8.2) g/dL Albumin 4.8 (3.5-5.0) g/dL Globulin 3.1 (1.7-4.1) g/dL Albumin/Globulin Ratio 1.5 (1.0-2.8) Lipase 39 (23-300) U/L Urine RBC 0-1/hpf (0-5/HPF) Urine WBC 0-1/hpf (0-5/HPF) Ur Squamous Epith Cells None seen (0-5/HPF) Urine Bacteria None seen (None) Ur Culture Indicated? Cult not indicated 11/07/18 Range/Units 16:10 WBC (4.5-11.0) X10^3/uL RBC (4.5-5.9) X10^6/uL Hgb (13.5-17.5) g/dL Hct (41-53) % MCV (80-100) fL MCH (26-34) PG MCHC (30-36) % RDW (11.6-14.8) % Plt Count (150-400) X10^3/uL Neut % (Auto) (50-75) % Lymph % (Auto) (25-40) % [place] % (Auto) (3-14) % Eos % (Auto) (2-4) % Baso % (Auto) (0-2) % Neut # (Auto) (5835-1025) /uL Lymph # (Auto) (8590-6601) /uL [place] # (Auto) (0-900) /uL Eos # (Auto) (0-450) /uL Baso # (Auto) (0-100) /uL Sodium (137-145) mmol/L Potassium (3.4-5.1) mmol/L Chloride (98-107) mmol/L Carbon Dioxide (22-32) mmol/L BUN (9-20) mg/dL Creatinine (0.66-1.25) mg/dL Estimated GFR (>60) mL/min BUN/Creatinine Ratio (6-22) Glucose (70-100) mg/dL Calcium (8.4-10.2) mg/dL Total Bilirubin (0.2-1.3) mg/dL AST (17-59) IU/L ALT (21-72) IU/L Alkaline Phosphatase (38-126) U/L Total Creatine Kinase (55-170) U/L CK-MB (CK-2) CK-MB (CK-2) Rel Index Troponin I < 0.012 (0.01-0.034) ng/mL Total Protein (6.3-8.2) g/dL Albumin (3.5-5.0) g/dL Globulin (1.7-4.1) g/dL Albumin/Globulin Ratio (1.0-2.8) Lipase (23-300) U/L Urine RBC (0-5/HPF) Urine WBC (0-5/HPF) Ur Squamous Epith Cells (0-5/HPF) Urine Bacteria (None) Ur Culture Indicated? Urine Dip Bedside Urine Glucose Negative Bedside Urine Bilirubin - Negative Bedside Urine Ketone - Negative Urine Specific [place] 1.015 Bedside Urine Occult Blood ++ Bedside Urine pH 6.5 Bedside Urine Protein - Negative Bedside Urine Urobilinogen - Negative Bedside Urine Nitrite - Negative Bedside Urine Leukocytes - Negative Esterase MDM Narrative Medical decision making narrative: 53-year-old male with history of cardiac disease presents with chest pain for 2 days. It is not a description of a classical ischemic type pain in that there is no provocation with exertion, no radiation of pain, no vomiting, diaphoresis. He has negative troponin x2 after 2 days of persistent pain with no EKG changes over prior. Heart score calculated but not particularly helpful in a patient with such a cardiac history. Patient feels better after being here for a bit and suggests this is a very typical presentation for him when his pain is anxiety is up. Discharge Plan Departure Patient Disposition: Home Clinical Impression: Atypical chest pain, Anxiety Discharge Date/Time: 11/07/18 17:01 Interventions: ED Discharge Assessment Last Done: 11/07/18 17:07 Instructions: DI for Atypical Chest Pain Activity Restrictions/Additional Instructions: *You have been diagnosed with [ atypical chest pain, anxiety ] *What to do: *Take medications as directed *Follow up with your primary care provider in 2-3 days, call for an appointment. Let them know you were seen in the Emergency Department and that we ask that you be seen in follow up *Return to ER if you should have any new, worsening or concerning symptoms Prescriptions: New clonazepam 0.25 mg tablet,disintegrating 0.25 mg PO BID Qty: 14 RF: 0 No Action aspirin 81 mg tablet,delayed release (DR/EC) 81 mg PO DAILY RF: 0 metoprolol succinate 25 mg tablet extended release 24 hr 25 mg PO DAILY Qty: 30 RF: 5 hydroxyzine pamoate 50 mg capsule 50 mg PO QID Qty: 90 RF: 4 buspirone 5 mg Tablet 5 mg PO BID RF: 0 tizanidine 4 mg Tablet 4 mg PO TID RF: 0 sertraline 50 mg Tablet 50 mg PO DAILY RF: 0 oxycodone-acetaminophen [Percocet] 5-325 mg tablet 1 tab PO Q4-6H PRN (Reason: pain) Qty: 2 RF: 0 ibuprofen [Advil] 200 mg Tablet 400 mg PO QID PRN (Reason: Pain (Scale Score 1-3)) RF: 0 lisinopril 20 mg tablet 20 mg PO DAILY RF: 0 duloxetine 60 mg capsule,delayed release(DR/EC) 60 mg PO DAILY RF: 0 celecoxib PO .qday RF: 0 Referrals: Brooke Coulter PA-C [Primary Care Provider] -
[2018-11-07] MEDS: ACETAMINOPHEN 325 MG TABLET 650 MG PO (15:16)
[2018-11-07 15:30] VITALS: BP 186/87; PULSE 61; RESP 14; O2SAT 100
[2018-11-07 16:00] LABS: Bacteria Urine None Seen; Culture Indicated Urine Cult Not Indicated; RBC Urine 0-1/HPF (0-5/HPF); Squamous Epithelial Cell Urine None Seen (0-5/HPF); WBC Urine 0-1/HPF (0-5/HPF)
[2018-11-07 16:39] LABS: Troponin I < 0.012 ng/mL (0.01-0.034)
[2018-11-07 16:53] VITALS: BP 179/76; PULSE 57; RESP 17; O2SAT 100
== END 2018-11-07 17:01 | disposition home or self-care (01) ==
PROVIDERS: Emergency Provider Emergency Medicine; PCP Student in an Organized Health Care Education/Training Program
DX: R07.89 Other chest pain (principal); F41.9 Anxiety disorder, unspecified
CPT/HCPCS: 36415; 36591; 71045; 80053; 81003; 81015; 82550; 83690; 84484; 85025; 93005; 96361; 96374; 99284; 99285; J1885

== ENCOUNTER 2018-11-21 05:39 | Emergency (ER) | payer OTHER, SELFPAY ==
[2018-01-11 08:55] VITALS: BMI 25.8
--- NOTE | 2018-11-21 05:43 | ED.ABDPAIN ---
HPI - Abdominal Pain General Chief Complaint: Nausea/Vomiting/Diarrhea Stated Complaint: stomach pain Time Seen by Provider: 11/21/18 05:40 Source: patient Mode of arrival: ambulatory Limitations: no limitations History of Present Illness HPI narrative: 53-year-old male former smoker with extensive medical history including four-way bypass and a relatively recent 6 week course of antibiotics for osteomyelitis managed by infectious disease at an outside hospital presents with a chief complaint of a few days of nonspecific abdominal pain in the setting of loose stools. He last took antibiotics with the osteomyelitis in December or January. He denies recent international travel or exposure to bad food or obviously ill persons. He developed generalized crampy abdominal pain that makes audible noises and builds until he has a loose watery stool at which point his symptoms improved tremendously. He feels a bit fatigued but is not dizzy, weak or lightheaded. He denies chest pain or shortness of breath. Denies any ongoing back pain. He does feel anxious but this is a chronic state and he is out of his benzos. MD complaint: abdominal pain Onset (ago): day(s) Pain Consistency: intermittent and now resolved Location: diffuse Severity: mild Quality: cramping Radiation: none Relieving factors: nothing Exacerbating factors: nothing Related Data Home Medications Medication Instructions Recorded Confirmed ibuprofen [Advil] 400 mg PO QID PRN 12/14/17 07/15/18 aspirin 81 mg tablet,delayed 81 mg PO DAILY 01/19/18 07/15/18 release celecoxib PO .qday 07/15/18 07/15/18 duloxetine 60 mg capsule,delayed 60 mg PO DAILY 07/15/18 10/29/18 release lisinopril 20 mg tablet 20 mg PO DAILY 07/15/18 10/29/18 buspirone 5 mg PO BID 10/29/18 10/29/18 sertraline 50 mg PO DAILY 10/29/18 10/29/18 tizanidine 4 mg PO TID 10/29/18 11/21/18 Previous Rx's Medication Instructions Recorded metoprolol succinate ER 25 mg 25 mg PO DAILY #30 tab 01/19/18 tablet,extended release 24 hr hydroxyzine pamoate 50 mg capsule 50 mg PO QID #90 cap 02/27/18 oxycodone-acetaminophen [Percocet] 1 tab PO Q4-6H PRN #2 tab 10/31/18 clonazepam 0.25 mg PO BID #14 tab 11/07/18 clonazepam 0.25 mg PO BID #14 tab 11/21/18 Allergies Allergy/AdvReac Type Severity Reaction Status Date / Time No Known Drug Allergies Allergy Verified 07/15/18 10:14 Review of Systems Constitutional Denies chills, Denies fever(s), Denies lethargy and Denies weakness Eyes Denies change in vision, Denies eye discharge, Denies irritation and Denies loss of vision ENT Ears, Nose, Mouth, and Throat: Denies change in voice, Denies neck pain and Denies sore throat Cardiovascular Denies chest pain, Denies irregular heart rhythm, Denies lightheadedness, Denies palpitations, Denies dyspnea, Denies dyspnea on exertion and Denies orthopnea Respiratory Denies cough, Denies dyspnea, Denies dyspnea on exertion and Denies wheezing Gastrointestinal Gastrointestinal: Reports abdominal pain, Reports bloating, Reports change in bowel habits, Denies diarrhea, Denies nausea and Denies vomiting Genitourinary Denies hematuria, Denies flank pain, Denies urinary incontinence and Denies urinary urgency Musculoskeletal Denies neck pain Integumentary/Breasts Denies pruritus, Denies erythema, Denies rash and Denies wounds Neurologic Denies confusion, Denies loss of vision and Denies weakness Psychiatric Denies anxiety, Denies confusion, Denies depression, Denies homicidal ideation and Denies suicidal ideation Endocrine Denies palpitations Hematologic/Lymphatic Denies easy bruising Allergic/Immunologic Denies wheezing [facility] Medical History Coronary artery disease (Acute) Discitis (Acute) 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 Normocephalic. No temporal or scalp tenderness. EYES: Pupils equal round and reactive. Extraocular motions intact. No scleral icterus. No injection or drainage. ENT: Nose without bleeding, purulent drainage or septal hematoma. Throat without erythema, tonsillar hypertrophy or exudate. Uvula midline. Airway patent. NECK: Trachea midline. No JVD or lymphadenopathy. Supple, nontender, no meningeal signs. CARDIOVASCULAR: Regular rate and rhythm without murmurs, gallops, or rubs. RESPIRATORY: Clear to auscultation. Breath sounds equal bilaterally. No wheezes, rales, or rhonchi. GASTROINTESTINAL: Abdomen soft, non-tender, nondistended. No hepato-splenomegaly, or palpable masses. No guarding. EXTREMITIES: No clubbing, cyanosis, or edema. No joint tenderness, effusion, or edema noted. BACK: Nontender without deformity or crepitance. No flank tenderness. NEURO: AOx3. SKIN: No rash or erythema. Initial Vital Signs Initial Vital Signs: Vital Signs Temperature 98 F 11/21/18 05:50 Pulse Rate 71 11/21/18 05:50 Respiratory Rate 16 11/21/18 05:50 Blood Pressure 168/86 H 11/21/18 05:50 Pulse Oximetry 99 11/21/18 05:50 Course Orders Ordered: Discontinued Medications Sodium Chloride (Normal Saline 0.9%) 1,000 mls @ 1,000 mls/hr IV BOLUS ONE Stop: 11/21/18 07:35 Last Infusion: 11/21/18 07:49 Dose: 0 mls/hr Admin: 11/21/18 06:50 Dose: 1,000 mls/hr Lorazepam (Ativan) 1 mg PO NOW ONE Stop: 11/21/18 06:37 Last Admin: 11/21/18 06:49 Dose: 1 mg Vital Signs - 8 hr 11/21/18 05:50 Temperature 98 F Pulse Rate 71 Respiratory Rate 16 Blood Pressure 168/86 H Pulse Oximetry 99 MDM - Abdominal Pain Lab Data Result diagrams: 11/21/18 07:00 11/21/18 07:00 Lab Results 11/21/18 11/21/18 Range/Units 07:00 07:00 WBC 6.0 (4.5-11.0) X10^3/uL RBC 4.54 (4.5-5.9) X10^6/uL Hgb 14.5 (13.5-17.5) g/dL Hct 41.3 (41-53) % MCV 91.0 (80-100) fL MCH 31.9 (26-34) PG MCHC 35.0 (30-36) % RDW 13.4 (11.6-14.8) % Plt Count 172 (150-400) X10^3/uL Neut % (Auto) 69.7 (50-75) % Lymph % (Auto) 20.1 L (25-40) % [place] % (Auto) 6.3 (3-14) % Eos % (Auto) 3.2 (2-4) % Baso % (Auto) 0.7 (0-2) % Neut # (Auto) 4200 (6222-7726) /uL Lymph # (Auto) 1200 (4730-1023) /uL [place] # (Auto) 400 (0-900) /uL Eos # (Auto) 200 (0-450) /uL Baso # (Auto) 0 (0-100) /uL Sodium 141 (137-145) mmol/L Potassium 3.7 (3.4-5.1) mmol/L Chloride 107 (98-107) mmol/L Carbon Dioxide 25 (22-32) mmol/L BUN 23 H (9-20) mg/dL Creatinine 0.70 (0.66-1.25) mg/dL Estimated GFR > 60.0 (>60) mL/min BUN/Creatinine Ratio 32.9 H (6-22) Glucose 111 H (70-100) mg/dL Calcium 9.7 (8.4-10.2) mg/dL Magnesium 1.9 (1.6-2.3) mg/dL [facility] Narrative Medical decision making narrative: Multiple etiologies for patient's symptoms considered including: [Infectious source versus electrolyte disturbance versus dehydration versus other] Patient's symptoms improved or duration of stay with above-stated therapies. Findings and discharge diagnosis discussed with patient/family followed by verbalization of understanding Return precautions discussed with patient/family whom verbalize understanding. Discharge Plan Departure Patient Disposition: Home Clinical Impression: Diarrhea Qualifiers: Diarrhea type: unspecified type Qualified Code(s): R19.7 - Diarrhea, unspecified Discharge Date/Time: 11/21/18 07:51 Interventions: ED Discharge Assessment Last Done: 11/21/18 07:50 Instructions: Diarrhea, DI for Dehydration -- Adult Activity Restrictions/Additional Instructions: 1. Drink plenty of fluids with frequent small sips. 2. For the next 24 hours a clear liquid diet is advised. After that please employ a brat diet which would include bananas, rice, apples, toast. 3. Please take medications as directed. 4. Please follow-up with your doctor in the next 1-2 days. Call the office for an appointment. 5. Please return to the emergency Department for any worsening or persistent symptoms, such as increasing pain or fever. Prescriptions: New clonazepam 0.25 mg tablet,disintegrating 0.25 mg PO BID Qty: 14 RF: 0 No Action aspirin 81 mg tablet,delayed release (DR/EC) 81 mg PO DAILY RF: 0 metoprolol succinate 25 mg tablet extended release 24 hr 25 mg PO DAILY Qty: 30 RF: 5 hydroxyzine pamoate 50 mg capsule 50 mg PO QID Qty: 90 RF: 4 buspirone 5 mg Tablet 5 mg PO BID RF: 0 tizanidine 4 mg Tablet 4 mg PO TID RF: 0 sertraline 50 mg Tablet 50 mg PO DAILY RF: 0 oxycodone-acetaminophen [Percocet] 5-325 mg tablet 1 tab PO Q4-6H PRN (Reason: pain) Qty: 2 RF: 0 ibuprofen [Advil] 200 mg Tablet 400 mg PO QID PRN (Reason: Pain (Scale Score 1-3)) RF: 0 clonazepam 0.25 mg tablet,disintegrating 0.25 mg PO BID Qty: 14 RF: 0 lisinopril 20 mg tablet 20 mg PO DAILY RF: 0 duloxetine 60 mg capsule,delayed release(DR/EC) 60 mg PO DAILY RF: 0 celecoxib PO .qday RF: 0 Referrals: Brooke Coulter PA-C [Primary Care Provider] -
[2018-11-21 05:50] VITALS: BP 168/86; PULSE 71; RESP 16; TEMP 36.6; O2SAT 99; BMI 25.0
[2018-11-21] MEDS: LORazepam 0.5 MG TABLET 1 MG PO (06:49)
[2018-11-21] MEDS: SODIUM CHLORIDE 0.9% 1,000 ML 1000 ML IV (06:50)
[2018-11-21 07:09] LABS: Add Manual Diff / Slide Review NO; Basophils Absolute Auto 0 /uL (0-100); Basophils Percent Auto 0.7 % (0-2); Eosinophils Absolute Auto 200 /uL (0-450); Eosinophils Percent Auto 3.2 % (2-4); Hematocrit 41.3 % (41-53); Hemoglobin 14.5 g/dL (13.5-17.5); Lymphocytes Absolute Auto 1200 /uL (1100-4500); Lymphocytes Percent Auto 20.1 % (25-40); Mean Corpuscular Hemoglobin 31.9 PG (26-34); Monocytes Absolute Auto 400 /uL (0-900); Monocytes Percent Auto 6.3 % (3-14); Neutrophils Absolute Auto 4200 /uL (1500-7000); Neutrophils Percent Auto 69.7 % (50-75); Platelet Count 172 X10^3/uL (150-400); Red Blood Cell Count 4.54 X10^6/uL (4.5-5.9); Red Cell Distribution Width 13.4 % (11.6-14.8)
[2018-11-21 07:21] LABS: BUN Creatinine Ratio 32.9 (6-22); Blood Urea Nitrogen 23 mg/dL (9-20); Calcium 9.7 mg/dL (8.4-10.2); Carbon Dioxide 25 mmol/L (22-32); Chloride 107 mmol/L (98-107); Estimated Glomerular Filt Rate > 60.0 mL/min (>60); Glucose 111 mg/dL (70-100); HEMOLYSIS < 15 (0-50); Magnesium 1.9 mg/dL (1.6-2.3); Potassium 3.7 mmol/L (3.4-5.1); Sodium 141 mmol/L (137-145)
[2018-11-21 07:50] VITALS: BP 159/79; PULSE 61; RESP 18; O2SAT 100
== END 2018-11-21 07:51 | disposition home or self-care (01) ==
PROVIDERS: Emergency Provider Emergency Medicine; PCP Student in an Organized Health Care Education/Training Program
DX: R19.7 Diarrhea, unspecified (principal)
CPT/HCPCS: 36415; 36591; 80048; 83735; 85025; 96360; 99283

== ENCOUNTER 2018-12-10 20:29 | Emergency (ER) | payer OTHER, SELFPAY ==
[2018-01-11 08:55] VITALS: BMI 25.8
--- NOTE | 2018-12-10 20:34 | ED_ITS ---
HPI - Chest Pain General Chief Complaint: Chest Pain Stated Complaint: CHEST PAIN Time Seen by Provider: 12/10/18 20:31 Source: patient Mode of arrival: ambulatory Limitations: no limitations History of Present Illness HPI narrative: 53-year-old male with a known history of coronary artery disease also known history of anxiety here for evaluation of chest pain for the past couple days. He also is complaining of being very anxious. He states that he has not had his clonazepam in the past week. He has an appointment with his mental health provider at the beginning of next month. Patient is was seen here in the emergency department several times the past for very similar symptoms. Each time he has had a negative cardiac workup and his symptoms were attributed to his anxiety. I did discuss this with the patient and he stated that his symptoms that brought him into the emergency department today are very similar to the prior symptoms. He states that he does think that his chest pain is associated with his anxiety. chest pain is been going on for the past couple days. Not worse with palpation or movement or breathing Related Data Home Medications Medication Instructions Recorded Confirmed ibuprofen [Advil] 400 mg PO QID PRN 12/14/17 07/15/18 aspirin 81 mg tablet,delayed 81 mg PO DAILY 01/19/18 07/15/18 release celecoxib PO .qday 07/15/18 07/15/18 duloxetine 60 mg capsule,delayed 60 mg PO DAILY 07/15/18 10/29/18 release lisinopril 20 mg tablet 20 mg PO DAILY 07/15/18 10/29/18 buspirone 5 mg PO BID 10/29/18 10/29/18 sertraline 50 mg PO DAILY 10/29/18 10/29/18 tizanidine 4 mg PO TID 10/29/18 11/21/18 Previous Rx's Medication Instructions Recorded metoprolol succinate ER 25 mg 25 mg PO DAILY #30 tab 01/19/18 tablet,extended release 24 hr hydroxyzine pamoate 50 mg capsule 50 mg PO QID #90 cap 02/27/18 oxycodone-acetaminophen [Percocet] 1 tab PO Q4-6H PRN #2 tab 10/31/18 clonazepam 0.25 mg PO BID #14 tab 11/07/18 clonazepam 0.25 mg PO BID #14 tab 11/21/18 Allergies Allergy/AdvReac Type Severity Reaction Status Date / Time No Known Drug Allergies Allergy Verified 12/10/18 20:35 Review of Systems Constitutional Denies fever(s) and Reports headache(s) ENT Ears, Nose, Mouth, and Throat: Denies vertigo and Reports headache(s) Cardiovascular Reports chest pain, Denies palpitations and Denies dyspnea Respiratory Denies cough and Denies dyspnea Gastrointestinal Gastrointestinal: Denies abdominal pain, Denies nausea and Denies vomiting Musculoskeletal Reports back pain Integumentary/Breasts Denies lesions and Denies rash Neurologic Denies vertigo and Reports headache(s) Psychiatric Reports abnormal sleep pattern, Reports anxiety and Reports panic attacks Endocrine Denies palpitations Hematologic/Lymphatic Denies easy bleeding and Denies easy bruising Allergic/Immunologic Denies urticaria [facility] Medical History Coronary artery disease (Acute) Discitis (Acute) 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) Anxiety (Chronic) HTN (hypertension) (Chronic) Social History household members: family Smoking Status: Current every day smoker alcohol intake: former Exam Initial Vital Signs Initial Vital Signs: Vital Signs Temperature 98.5 F 12/10/18 20:35 Pulse Rate 103 H 12/10/18 20:35 Respiratory Rate 12 12/10/18 20:35 Blood Pressure 189/119 H 12/10/18 20:35 Pulse Oximetry 97 12/10/18 20:35 Const General: No acute distress and anxious Orientation: alert and awake Resp Effort & Inspection: normal respiratory effort Auscultation: clear to auscultation bilaterally Cardio Rate: tachycardic Rhythm: regular rhythm GI Inspection: non-distended Skin Lesions: no lesions Rashes: no rashes Neuro General: alert and awake Cognition: normal cognition Speech: speech normal Extrem General: capillary refill normal Psych Appearance: disheveled Speech and Movement: not agitated, pressured speech and restless Mood: No angry and irritable mood Affect: anxious affect Attitude: cooperative Course Orders Ordered: ED Orders 12/10/18 20:31 B Type Natriuretic Peptide Stat Basic Metabolic Panel Stat Complete Blood Count AUTO DIFF Stat Troponin I Stat 12/10/18 20:33 XR chest 1V Stat 12/10/18 20:34 EKG-12 Lead Stat Discontinued Medications Acetaminophen (Tylenol) 975 mg PO NOW ONE Stop: 12/10/18 21:12 Last Admin: 12/10/18 21:26 Dose: 975 mg Clonazepam (Klonopin) 1 mg PO NOW ONE Stop: 12/10/18 21:12 Last Admin: 12/10/18 21:26 Dose: 1 mg Ketorolac Tromethamine (Toradol) 30 mg IV NOW ONE Stop: 12/10/18 21:52 Last Admin: 12/10/18 22:02 Dose: 30 mg Vital Signs - 8 hr 12/10/18 20:35 12/10/18 22:14 Temperature 98.5 F Pulse Rate 103 H 98 H Respiratory Rate 12 18 Blood Pressure 189/119 H Blood Pressure [Left Arm] 185/92 H Pulse Oximetry 97 98 MDM - Chest Pain Lab Data Attestation: I reviewed the patient's lab results. Result diagrams: 12/10/18 20:31 12/10/18 20:31 Lab Results 12/10/18 12/10/18 Range/Units 20:31 20:31 WBC 10.0 (4.5-11.0) X10^3/uL RBC 5.08 (4.5-5.9) X10^6/uL Hgb 16.4 (13.5-17.5) g/dL Hct 45.7 (41-53) % MCV 89.8 (80-100) fL MCH 32.2 (26-34) PG MCHC 35.9 (30-36) % RDW 12.7 (11.6-14.8) % Plt Count 211 (150-400) X10^3/uL Neut % (Auto) 66.5 (50-75) % Lymph % (Auto) 23.1 L (25-40) % [place] % (Auto) 5.8 (3-14) % Eos % (Auto) 3.4 (2-4) % Baso % (Auto) 1.2 (0-2) % Neut # (Auto) 6600 (9005-4410) /uL Lymph # (Auto) 2300 (7245-5056) /uL [place] # (Auto) 600 (0-900) /uL Eos # (Auto) 300 (0-450) /uL Baso # (Auto) 100 (0-100) /uL Sodium 143 (137-145) mmol/L Potassium 3.8 (3.4-5.1) mmol/L Chloride 103 (98-107) mmol/L Carbon Dioxide 27 (22-32) mmol/L BUN 24 H (9-20) mg/dL Creatinine 0.80 (0.66-1.25) mg/dL Estimated GFR > 60.0 (>60) mL/min BUN/Creatinine Ratio 30.0 H (6-22) Glucose 105 H (70-100) mg/dL Calcium 10.1 (8.4-10.2) mg/dL Troponin I < 0.012 (0.01-0.034) ng/mL B-Natriuretic Peptide < 100 (<100) Imaging Data Chest x-ray: Radiologist's impression: [address] [address] XRay Report Signed Patient: Fidel Erwin EMR#: [id number] : 1965Acct:[id number] Age/Sex: 53 / MDate of Service: 12/10/18 Loc: ED Accession Number: [id number] Procedure: XR chest 1V Ordering Provider: Tyshawn Rosas D.O. PROCEDURE: XR CHEST 1V INDICATIONS: Chest pain TECHNIQUE: One view of the chest was acquired. [facility] 13[facility]. FINDINGS: Surgical changes and devices: Coronary artery bypass graft and valvuloplasty changes. Lungs and pleura: Chronic linear scarring in the left midlung. Lungs are otherwise clear. No pleural effusions or pneumothorax. Mediastinum: Mediastinal contours appear normal. Heart size is normal. Bones and chest wall: No suspicious bony lesions. Healed left clavicle fracture. Overlying soft tissues appear unremarkable. IMPRESSION: No acute process. Postsurgical changes to the heart. Left lung scarring. Dictated by: Jazzy Rogel M.D. on 12/10/2018 at 21:19 Approved by: Jazzy Rogel M.D. on 12/10/2018 at 21:20 ECG Data Attestation: I personally reviewed and interpreted this ECG as follows: Prior ECG tracings: available for review Interpretation: Sinus rhythm Rate of [address] T wave changes Unchanged from EKG dated 11/07/2018 MDM Narrative Medical decision making narrative: Patient does have a significant cardiac history however his presenting symptoms today per his report and also for review of the prior notes seems to be exactly same as his prior to ED visits. His EKG is unchanged. Troponin is negative. Chest x-ray is unremarkable. patient does appear to be fairly anxious. He has not been on his Klonopin for the past week. He states that his mental health provider started providing this for him. Unsure as the exact reason for this. Patient was given Klonopin here in the emergency department. Given Tylenol for his headache and Toradol for his lower back pain. I do have low suspicion that his symptoms are ACS. The patient then asked to leave. I feel that he was alert oriented x3 in my opinion is capacity to make decisions. Informed him that he should contact his mental health provider on Thursday and also his primary care provider for follow-up. He expressed understanding and agreement with plan. Discharge Plan Departure Patient Disposition: Home Clinical Impression: Atypical chest pain, Anxiety Discharge Date/Time: 12/10/18 22:23 Interventions: ED Discharge Assessment Last Done: 12/10/18 22:23 Instructions: DI for Atypical Chest Pain, DI for Anxiety -- Adult Activity Restrictions/Additional Instructions: I would recommend on Thursday you contact your mental health provider to discuss follow-up and any medications. Also contact her primary care provider. He do not have 1 you can contact [phone]. Return to the emergency department for any new symptoms Prescriptions: No Action aspirin 81 mg tablet,delayed release (DR/EC) 81 mg PO DAILY RF: 0 metoprolol succinate 25 mg tablet extended release 24 hr 25 mg PO DAILY Qty: 30 RF: 5 hydroxyzine pamoate 50 mg capsule 50 mg PO QID Qty: 90 RF: 4 buspirone 5 mg Tablet 5 mg PO BID RF: 0 tizanidine 4 mg Tablet 4 mg PO TID RF: 0 sertraline 50 mg Tablet 50 mg PO DAILY RF: 0 oxycodone-acetaminophen [Percocet] 5-325 mg tablet 1 tab PO Q4-6H PRN (Reason: pain) Qty: 2 RF: 0 clonazepam 0.25 mg tablet,disintegrating 0.25 mg PO BID Qty: 14 RF: 0 ibuprofen [Advil] 200 mg Tablet 400 mg PO QID PRN (Reason: Pain (Scale Score 1-3)) RF: 0 clonazepam 0.25 mg tablet,disintegrating 0.25 mg PO BID Qty: 14 RF: 0 lisinopril 20 mg tablet 20 mg PO DAILY RF: 0 duloxetine 60 mg capsule,delayed release(DR/EC) 60 mg PO DAILY RF: 0 celecoxib PO .qday RF: 0 Referrals: Brooke Coulter PA-C [Primary Care Provider] -
[2018-12-10 20:35] VITALS: BP 189/119; PULSE 103; RESP 12; TEMP 36.9; O2SAT 97; BMI 25.0
[2018-12-10 20:47] LABS: Add Manual Diff / Slide Review NO; Basophils Absolute Auto 100 /uL (0-100); Basophils Percent Auto 1.2 % (0-2); Eosinophils Absolute Auto 300 /uL (0-450); Eosinophils Percent Auto 3.4 % (2-4); Hematocrit 45.7 % (41-53); Hemoglobin 16.4 g/dL (13.5-17.5); Lymphocytes Absolute Auto 2300 /uL (1100-4500); Lymphocytes Percent Auto 23.1 % (25-40); Mean Corpuscular HGB Conc 35.9 % (30-36); Mean Corpuscular Hemoglobin 32.2 PG (26-34); Mean Corpuscular Volume 89.8 fL (80-100); Monocytes Absolute Auto 600 /uL (0-900); Monocytes Percent Auto 5.8 % (3-14); Neutrophils Absolute Auto 6600 /uL (1500-7000); Neutrophils Percent Auto 66.5 % (50-75); Platelet Count 211 X10^3/uL (150-400); Red Blood Cell Count 5.08 X10^6/uL (4.5-5.9); Red Cell Distribution Width 12.7 % (11.6-14.8)
[2018-12-10 21:01] LABS: Blood Urea Nitrogen 24 mg/dL (9-20); Calcium 10.1 mg/dL (8.4-10.2); Carbon Dioxide 27 mmol/L (22-32); Chloride 103 mmol/L (98-107); Estimated Glomerular Filt Rate > 60.0 mL/min (>60); Glucose 105 mg/dL (70-100); HEMOLYSIS 22 (0-50); Potassium 3.8 mmol/L (3.4-5.1); Sodium 143 mmol/L (137-145)
--- NOTE | 2018-12-10 21:02 | PC.NURSE ---
Patient extremely restless and anxious in room. States anxiety is worse and ran out of clonazepam one week ago psychiatrist stopped filling RX with no other plan
[2018-12-10 21:10] LABS: B Type Natriuretic Peptide < 100 (<100)
[2018-12-10 21:13] LABS: Troponin I < 0.012 ng/mL (0.01-0.034)
[2018-12-10] MEDS: clonazePAM 0.5 MG TABLET 1 MG PO (21:26)
[2018-12-10] MEDS: ACETAMINOPHEN 325 MG TABLET 975 MG PO (21:26)
--- NOTE | 2018-12-10 21:43 | PC.NURSE ---
pt refusing to keep blood pressure cuff on when trying to get vitals. He is very restless stating that his back is hurting.
[2018-12-10] MEDS: KETOROLAC 60 MG/2 ML VIAL 30 MG IV (22:02)
[2018-12-10 22:14] VITALS: BP 185/92; PULSE 98; RESP 18; O2SAT 98
--- NOTE | 2018-12-10 22:15 | PC.NURSE ---
jose pacing in room, comes to nurses station states he needs to check out. Provider aware.
== END 2018-12-10 22:23 | disposition home or self-care (01) ==
PROVIDERS: Emergency Provider Emergency Medicine; PCP Student in an Organized Health Care Education/Training Program
DX: F41.9 Anxiety disorder, unspecified (principal); R07.89 Other chest pain
CPT/HCPCS: 36591; 71045; 80048; 83880; 84484; 85025; 93005; 96374; 99283; 99285; J1885

== ENCOUNTER 2018-12-13 11:12 | Emergency (ER) | payer OTHER, SELFPAY ==
[2018-01-11 08:55] VITALS: BMI 25.8
[2018-12-13 11:18] VITALS: BP 134/86; PULSE 87; RESP 18; TEMP 36.6; O2SAT 99
[2018-12-13] MEDS: LORazepam 0.5 MG TABLET 1 MG PO (12:01)
--- NOTE | 2018-12-13 12:03 | ED.ANXIETY ---
HPI - Anxiety <BENITA Miller - Last Filed: 12/14/18 02:35> General Chief Complaint: Anxiety Stated Complaint: Anxiety Time Seen by Provider: 12/13/18 11:16 Source: patient Mode of arrival: ambulatory Limitations: no limitations History of Present Illness HPI narrative: This is a 53-year-old male, smoker, presents to ED with feeling anxious, restless and some trouble with breathing. Patient was here 3 days ago with similar symptoms and had comprehensive cardiac workup done with negative results at that time. Patient reports he has been stressed because his mom has been in bed mood and frequently yells at him and he is not sure why. He denies suicidal or homicidal ideation. He reports taking lorazepam for acute anxiety symptoms. He is currently taking hydroxyzine which was provided by his primary care physician which he took this morning and he takes several other medications for depression and mood disorders. Patient reports he has been compliant with his medications. He attempted to be seen by his psychiatrist, Dr. Kc, in [facility] but there is no available appointment till beginning of December. The patient denies chest pain or dizziness at this time. He had tried breathing exercises at home but no effect. Patient denies using any illicit substances or drinking alcohol. Related Data Home Medications Medication Instructions Recorded Confirmed ibuprofen [Advil] 400 mg PO QID PRN 12/14/17 12/13/18 aspirin 81 mg tablet,delayed 81 mg PO DAILY 01/19/18 12/13/18 release duloxetine 60 mg capsule,delayed 60 mg PO DAILY 07/15/18 12/13/18 release lisinopril 20 mg tablet 20 mg PO DAILY 07/15/18 12/13/18 sertraline 50 mg PO QAM 10/29/18 12/13/18 bupropion HCl 300 mg PO QAM 12/13/18 12/13/18 buspirone 30 mg PO BID 12/13/18 12/13/18 hydroxyzine HCl 10 mg PO Q6-8H PRN 12/13/18 12/13/18 olanzapine 5 mg PO BEDTIME 12/13/18 12/13/18 propranolol 10 mg PO TID 12/13/18 12/13/18 tizanidine 2 mg PO BID PRN 12/13/18 12/13/18 Previous Rx's Medication Instructions Recorded metoprolol succinate 25 mg 25 mg PO DAILY #30 tab 01/19/18 tablet,extended release 24 hr clonazepam 0.25 mg PO BID #14 tab 11/21/18 Allergies Allergy/AdvReac Type Severity Reaction Status Date / Time No Known Drug Allergies Allergy Verified 12/10/18 20:35 Review of Systems <BENITA Miller - Last Filed: 12/14/18 02:35> Review of Systems ROS Unobtainable: All systems reviewed & are unremarkable except as noted in HPI and below PFSH <BENITA Miller - Last Filed: 12/14/18 02:35> Medical History Coronary artery disease (Acute) Discitis (Acute) 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 Head: normocephalic, atraumatic, no scalp lesions, non-tender. Eye: pupil equal, round. EOMI. Nose: nares patent. Oral: mucosa moist. Neck/Thyroid: neck supple, full range of motion, no visible masses. Skin: no suspicious rashes, lesions over visible areas. Warm and dry. Heart: no clubbing, no cyanosis, no edema. Lungs: Breathing even and unlabored. No stridor. No accessory muscles used. Chest: normal shape and expansion. Abdomen: non-obese, non-distended. Neurologic: alert and oriented. Cognitive exam, GILL TENDER and PNS grossly intact on informal exam. Psych: good eye contact, flat affect, restless and pacing in the room. Cooperative with exam. Initial Vital Signs Initial Vital Signs: Vital Signs Temperature 97.8 F 12/13/18 11:18 Pulse Rate 87 12/13/18 11:18 Respiratory Rate 18 12/13/18 11:18 Blood Pressure 134/86 12/13/18 11:18 Pulse Oximetry 99 12/13/18 11:18 <Tiarra Colvin MD - Last Filed: 12/16/18 07:09> Initial Vital Signs Initial Vital Signs: Vital Signs Temperature 97.8 F 12/13/18 11:18 Pulse Rate 87 12/13/18 11:18 Respiratory Rate 18 12/13/18 11:18 Blood Pressure 134/86 12/13/18 11:18 Pulse Oximetry 99 12/13/18 11:18 Course <BENITA Miller - Last Filed: 12/14/18 02:35> Orders Ordered: Discontinued Medications Lorazepam (Ativan) 1 mg PO NOW ONE Stop: 12/13/18 11:58 Last Admin: 12/13/18 12:01 Dose: 1 mg Documented by: GABRIEL Vital Signs - 8 hr 12/13/18 11:18 Temperature 97.8 F Pulse Rate 87 Respiratory Rate 18 Blood Pressure 134/86 Pulse Oximetry 99 <Tiarra Colvin MD - Last Filed: 12/16/18 07:09> Orders Ordered: Discontinued Medications Lorazepam (Ativan) 1 mg PO NOW ONE Stop: 12/13/18 11:58 Last Admin: 12/13/18 12:01 Dose: 1 mg Documented by: GABRIEL Vital Signs - 8 hr 12/13/18 11:18 Temperature 97.8 F Pulse Rate 87 Respiratory Rate 18 Blood Pressure 134/86 Pulse Oximetry 99 MDM - Anxiety <BENITA Miller - Last Filed: 12/14/18 02:35> Differential Diagnosis Differential diagnosis: Likely panic disorder and acute anxiety Medical Records Attestation: I reviewed the patient's medical records. Lab Data Lab Results 12/13/18 Range/Units 11:59 Urine Opiates Screen Negative (Negative) Ur Oxycodone Screen Negative (Negative) Urine Methadone Screen Negative (Negative) Ur Barbiturates Screen Negative (Negative) U Tricyclic Antidepress Negative (Negative) Ur Phencyclidine Scrn Negative (Negative) Ur Amphetamines Screen Negative (Negative) U Methamphetamines Scrn Negative (Negative) Ur MDMA Scrn (Ecstasy) Negative (Negative) U Benzodiazepines Scrn Negative (Negative) Urine Cocaine Screen Negative (Negative) U Marijuana (THC) Screen Negative (Negative) ECG Data Attestation: I personally reviewed and interpreted this ECG as follows: Prior ECG tracings: available for review Interpretation: Sinus rhythm rate at 72. Left axis. Indterminated age of Lateral and inferior ST elevation but No changes from previous EKGs when compared. MDM Narrative Medical decision making narrative: This patient has been coming in to ED with acute anxiety symptoms and panic attacks and requesting medications to calm himself. He had several negative cardiac workups done for this symptoms in the past. Patient denies chest pain at this time but states can get full breath in. Cardiac workup was deferred at this time due to patient does not complain of chest pain at this time. He was obviously restless and pacing in the room. Patient's psychiatric office was contacted today had a long discussion to find an acute appointment for this patient. According to the human resources receptionist, patient calls very frequently to the office and she may be able to find an acute appointment for next week with Dr. Kc. He has already been on multiple mood disorder medications at this time. However, Lorazepam or Clonazepam are none of the routine medication that Dr. Montejo had prescribed for the patient. I shared the above information with the patient and advised to follow up with his psychiatrist. Patient had abnormal EKG but no changes from previously done EKGs. Patient was medicated with 1 dose of lorazepam and shortly after patient stays wanted leave ED. UDS with negative findings. Red flag symptoms were discussed with the patient and the patient verbalized the understanding and no further questions were expressed at this time. <Tiarra Colvin MD - Last Filed: 12/16/18 07:09> Lab Data Lab Results 12/13/18 Range/Units 11:59 Urine Opiates Screen Negative (Negative) Ur Oxycodone Screen Negative (Negative) Urine Methadone Screen Negative (Negative) Ur Barbiturates Screen Negative (Negative) U Tricyclic Antidepress Negative (Negative) Ur Phencyclidine Scrn Negative (Negative) Ur Amphetamines Screen Negative (Negative) U Methamphetamines Scrn Negative (Negative) Ur MDMA Scrn (Ecstasy) Negative (Negative) U Benzodiazepines Scrn Negative (Negative) Urine Cocaine Screen Negative (Negative) U Marijuana (THC) Screen Negative (Negative) Discharge Plan Departure Patient Disposition: Home Clinical Impression: Anxiety Discharge Date/Time: 12/13/18 12:38 Instructions: DI for Anxiety -- Adult Activity Restrictions/Additional Instructions: You have been diagnosed with [anxiety. You're medicated with 1 mg of Ativan during ED stay.]. What to do: *Take your medications as directed. There is no new medication to go home with from today's visit *Follow up with your primary care provider, psychiatric is in 2-3 days, call for an appointment. I spoke with Dr. Kc's office today and they are trying very hard to find the available appointment for you during next week. Continue with the breathing exercises, imagery exercise, meditation. Let them know you were seen in the ED and that we asked you to be seen in follow up. *Return to ED if you have any new, worsening, or concerning symptoms, such as [chest pain, breathing difficulty, feeling fainting, any acute concerns. He can also call crisis line when you feel overwhelmed and needs assistance. The number is or .]. Prescriptions: No Action aspirin 81 mg tablet,delayed release (DR/EC) 81 mg PO DAILY RF: 0 metoprolol succinate 25 mg tablet extended release 24 hr 25 mg PO DAILY Qty: 30 RF: 5 sertraline 50 mg Tablet 50 mg PO QAM RF: 0 clonazepam 0.25 mg tablet,disintegrating 0.25 mg PO BID Qty: 14 RF: 0 ibuprofen [Advil] 200 mg Tablet 400 mg PO QID PRN (Reason: Pain (Scale Score 1-3)) RF: 0 olanzapine 5 mg Tablet 5 mg PO BEDTIME RF: 0 buspirone 30 mg tablet 30 mg PO BID RF: 0 hydroxyzine HCl 10 mg tablet 10 mg PO Q6-8H PRN (Reason: Anxiety) RF: 0 bupropion HCl 300 mg tablet extended release 24 hr 300 mg PO QAM RF: 0 tizanidine 2 mg tablet 2 mg PO BID PRN (Reason: Anxiety) RF: 0 propranolol 10 mg tablet 10 mg PO TID RF: 0 lisinopril 20 mg tablet 20 mg PO DAILY RF: 0 duloxetine 60 mg capsule,delayed release(DR/EC) 60 mg PO DAILY RF: 0 Referrals: Sundar Kc DO [Non-Staff] - Brooke Coulter PA-C [Primary Care Provider] -
[2018-12-13 12:28] LABS: Urine Amphetamines Negative (Negative); Urine Barbiturates Negative (Negative); Urine Benzodiazepines Negative (Negative); Urine Cocaine Negative (Negative); Urine MDMA Negative (Negative); Urine Methadone Negative (Negative); Urine Methamphetamines Negative (Negative); Urine Morphine/Opi cutoff 2000 Negative (Negative); Urine Oxycodone Negative (Negative); Urine Phencyclidine Negative (Negative); Urine Tetrahydrocannabinol Negative (Negative); Urine Tricyclic Antidepressant Negative (Negative)
== END 2018-12-13 12:38 | disposition home or self-care (01) ==
PROVIDERS: Emergency Provider Nurse Practitioner Family; PCP Student in an Organized Health Care Education/Training Program
DX: F41.9 Anxiety disorder, unspecified (principal); R94.31 Abnormal electrocardiogram [ECG] [EKG]
CPT/HCPCS: 80305; 93005; 99282; 99283

== ENCOUNTER 2018-12-23 07:40 | Inpatient (IN) | payer OTHER, SELFPAY ==
[2018-01-11 08:55] VITALS: BMI 25.8
[2018-12-23] VITALS (10 sets, daily range): BP systolic 108–181; BP diastolic 60–87; PULSE 52–88; RESP 16–18; TEMP 36.1–37.1; O2SAT 95–99; BMI 25.2
--- NOTE | 2018-12-23 | DI.ECHO.S_ITS ---
[facility] +---------+ : : [address] : : : : [id number] : : : : Phone: [phone] Echocardiogram Report + + :Name: ALAN RAJPUT Study Date: 12/25/2018 Height: 66 in : :[facility] Exam Location: [facility] Weight: 156 lb : : Gender: Male BSA: 1.8 m2 : :: 1965 Age: 53 yrs BP: 153/83 mmHg: :Reason For Study: CVA/ CAD/ Palpitations : :Ordering Physician: Eladio : :Hospitalist Performed By: Cleo Page : :Referring: LC GREEN : + + Interpretation Summary The study quality was technically difficult. A bubble study was attempted 4 times but was unsuccessful and not diagnostic. -The basal to mid inferior and inferolateral li are akinetic and scarred. The inferoseptal wall is also hypokinetic. -Left ventricular systolic function is moderately reduced. -The right ventricle is normal size. -Right ventricular systolic function is at the lower limits of normal. -Pulmonary artery pressures cannot be estimated because of the lack of a measurable TR jet velocity but the IVC suggests a CVP of around 3 mmHg. -Compared to the prior study, patient is less bradycardic and RA pressure is now lower. Otherwise no significant change. Procedure: A two-dimensional transthoracic echocardiogram with color flow and Doppler was performed. Comparison is made with the echocardiogram of 09/05/2018. A saline contrast injection was performed to assess for cardiac shunting. The study quality was technically difficult. The heart rate ranged between 48-58 bpm during the study. Left Ventricle: The left ventricle is mildly dilated. There is normal left ventricular wall thickness. The ejection fraction is estimated to be 30-35%. Left ventricular systolic function is moderately reduced. There is inferior wall akinesis. There is posterolateral wall akinesis. Diastolic function could not be accurately assessed due to confounding valvular disease. Right Ventricle: The right ventricle is normal size. Right ventricular systolic function is at the lower limits of normal. Atria: The left atrium is moderately dilated. Right atrial size is normal. There is no Doppler evidence for an interatrial shunt. Mitral Valve: An annuloplasty ring is noted in the mitral position. There is no mitral valve stenosis. There is mild mitral regurgitation. Aortic Valve: The aortic valve is not well visualized. The aortic valve is mildly calcified. There is no aortic valve stenosis. No aortic regurgitation is present. Tricuspid Valve: The tricuspid valve is normal in structure and function. There is a trace or physiologic amount of tricuspid regurgitation. Pulmonary artery pressures cannot be estimated because of the lack of a measurable TR jet velocity but the IVC suggests a CVP of around 3 mmHg. Pulmonic Valve: The pulmonic valve is not well visualized. There is a trace or physiologic amount of pulmonic regurgitation. Great Vessels: The aortic root is normal size. The ascending aorta is normal in size. The pulmonary artery is not well visualized, but is probably normal size. The IVC is of normal diameter and collapses greater than 50% with a sniff. This suggests a low right atrial pressure of 3 mm Hg. Pericardium/ Pleura There is no pericardial effusion. There is no pleural effusion. MMode/2D Measurements & Calculations LVIDd: 5.3 cm LVOT diam: 2.0 cm LVIDs: 4.9 cm Ao root diam: 2.9 cm FS: 7.7 % asc Aorta Diam: 2.9 cm EPSS: 1.3 cm IVSd: 0.59 cm LVPWd: 0.86 cm LV bernal. diameter/BSA (cm/m^2): 2.9 LV sys. diameter/BSA (cm/m^2): 2.7 LA A2 area: 20.0 cm2 RA long axis: 4.8 cm LA A4 area: 23.7 cm2 RA area: 16.1 cm2 LA length (vol): 5.1 cm RA vol: 46.2 ml LA vol: 78.9 ml RA : 25.7 ml/m2 LA vol index: 43.8 ml/m2 IVC diam: 2.0 cm RVD1 (basal): 4.5 cm RVD2 (mid): 4.1 cm Doppler Measurements & Calculations Ao V2 max: 170.2 cm/sec LVOT Max Case: 84.2 cm/sec Ao V2 mean: 112.5 cm/sec LV V1 max P.8 mmHg Ao max P.6 mmHg LV V1 VTI: 17.8 cm Ao mean P.6 mmHg LARA(I,D): 1.5 cm2 Ao V2 VTI: 35.6 cm LARA(V,D): 1.5 cm2 sev ratio: 0.50 LARA indexed to BSA (cm^2/m^2): 0.84 MV E max case: 148.4 cm/sec TR max case: 227.3 cm/sec MV A max case: 84.1 cm/sec TR max P.7 mmHg MV E/A: 1.8 PA V2 max: 74.1 cm/sec Med Peak E' Case: 3.2 cm/sec PA V2 mean: 55.4 cm/sec E/E' med: 46.4 PA mean P.3 mmHg Lat Peak E' Case: 3.9 cm/sec PA Accel Time: 0.04 sec E/E' lat: 37.8 E/e' average: 42.1 MV P1/2t: 86.6 msec MVA(VTI): 1.2 cm2 MV V2 mean: 63.0 cm/sec MV P1/2t max case: 148.4 cm/sec MV mean P.2 mmHg MVA(P1/2t): 2.5 cm2 MV V2 VTI: 46.1 cm SV(LVOT): 53.7 ml Electronically signed by: Bucky Tracy M.D. on Reading Physician:12/25/2018 02:57 PM
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
[2018-12-23 08:15] LABS: Add Manual Diff / Slide Review NO; Basophils Absolute Auto 0 /uL (0-100); Basophils Percent Auto 0.5 % (0-2); Eosinophils Absolute Auto 200 /uL (0-450); Eosinophils Percent Auto 3.2 % (2-4); Hematocrit 40.1 % (41-53); Hemoglobin 14.7 g/dL (13.5-17.5); Lymphocytes Absolute Auto 1500 /uL (1100-4500); Lymphocytes Percent Auto 21.1 % (25-40); Mean Corpuscular HGB Conc 36.6 % (30-36); Mean Corpuscular Hemoglobin 32.7 PG (26-34); Mean Corpuscular Volume 89.4 fL (80-100); Monocytes Absolute Auto 500 /uL (0-900); Monocytes Percent Auto 6.7 % (3-14); Neutrophils Absolute Auto 4800 /uL (1500-7000); Neutrophils Percent Auto 68.5 % (50-75); Platelet Count 178 X10^3/uL (150-400); Red Blood Cell Count 4.48 X10^6/uL (4.5-5.9); Red Cell Distribution Width 12.3 % (11.6-14.8)
[2018-12-23 08:19] LABS: INR 1.1 (0.9-1.3); Prothrombin Time 12.4 SECONDS (10.1-12.7)
[2018-12-23] MEDS: SODIUM CHLORIDE 0.9% 1,000 ML 150 ML IV ×3 (08:19→22:25)
[2018-12-23 08:22] LABS: PTT Partial Thromboplastin Tim 35 SECONDS (26.4-36.2)
[2018-12-23 08:24] LABS: Alanine Aminotransferase 19 IU/L (21-72); Albumin 4.6 g/dL (3.5-5.0); Albumin Globulin Ratio 1.4 (1.0-2.8); Alkaline Phosphatase 55 U/L (38-126); Aspartate Aminotransferase 21 IU/L (17-59); BUN Creatinine Ratio 24.3 (6-22); Bilirubin Total 0.8 mg/dL (0.2-1.3); Blood Urea Nitrogen 17 mg/dL (9-20); Calcium 9.8 mg/dL (8.4-10.2); Carbon Dioxide 26 mmol/L (22-32); Chloride 105 mmol/L (98-107); Estimated Glomerular Filt Rate > 60.0 mL/min (>60); Globulin 3.2 g/dL (1.7-4.1); Glucose 98 mg/dL (70-100); HEMOLYSIS 19 (0-50); Potassium 4.1 mmol/L (3.4-5.1); Sodium 143 mmol/L (137-145); Total Protein 7.8 g/dL (6.3-8.2)
[2018-12-23] MEDS: clonazePAM 0.5 MG TABLET PO (09:21)
[2018-12-23] MEDS: ASPIRIN 81 MG CHEW TAB 324 MG PO (09:42)
--- NOTE | 2018-12-23 10:01 | DI.MRI.S_ITS ---
PROCEDURE: MR STROKE Pre- and post-contrast brain MRI, non-contrast brain MR angiogram, pre- and postcontrast neck MR angiogram INDICATIONS: stroke TECHNIQUE: Brain: Noncontrast axial T1 spin echo, axial T2 fast spin echo, sagittal and axial FLAIR, coronal T2 fast spin echo, axial gradient echo, axial diffusion and ADC through the brain. After the administration of contrast, axial 3D VIBE of the cranial vasculature and brain. Brain MRA: Non-contrast 3-D time of flight MR angiogram, with multiple xxhancl-cwalueqti-qcjbfxnnbo (MIP) reformats performed. Neck MRA: Axial and sagittal TruFISP through the neck. Coronal dynamic MR angiogram during administration of contrast in the arterial and venous phases, with 3-dimenstional rvygowl-ozsajftko-llngzfhexa (MIP) reformats constructed from subtraction images. COMPARISON: [facility], MR, MR HEAD/BRAIN WO CON, 09/21/2018, 14:09. [facility], CT, CT HEAD/BRAIN WO CON, 12/23/2018, 8:07. [facility], CT, CT HEAD/BRAIN WO CON, 09/21/2018, 11:32. [facility], CT, CT HEAD/BRAIN WO CON, 10/29/2018, 10:33. FINDINGS: Image quality: Excellent. BRAIN: CSF spaces: Ventricles are normal in size and shape. Basal cisterns are patent. No extra-axial fluid collections. Brain: There is a remote injury of the right frontal lobe, with encephalomalacia and volume loss, which is stable compared to the prior MRI. Posterior to the area of prior remote brain injury, there is abnormal diffusion weighted signal seen, with associated dark signal on ADC map. On contrast enhanced images, there is abnormal increased enhancement seen within the right head of the caudate nucleus and right basal ganglia, which is consistent with luxury perfusion. There is developing increased T2-weighted signal seen within this region. No intracranial bleeds or mass effects. Bustillo-white matter interface is normal. Brainstem appears normal. Normal intravascular flow voids are present. No abnormal intracranial enhancement. Skull and face: Calvarial marrow signal is normal. Orbits appear normal. Sinuses: Sinuses and mastoids are clear. BRAIN MR ANGIOGRAM: Anterior circulation: The distal left internal carotid artery is not seen. Reconstitution is seen of the distalmost intracranial internal carotid artery from collateral flow through the [place]. The flow within the paired anterior cerebral arteries is normal and symmetric. The flow within the middle cerebral arteries is normal and symmetric. The anterior communicating artery is seen. No aneurysms. Posterior circulation: Focal irregularity seen in the distal vertebral arteries, with approximately 60% narrowing seen in the distal left vertebral artery join to form a normal appearing basilar artery. The flow within the posterior cerebral arteries is normal and symmetric. No aneurysms. NECK MR ANGIOGRAM: Carotids: Great vessels demonstrate a conventional anatomy as they arise from the aortic arch. The origins of the common carotid arteries appear patent. The calibers and courses of both common carotid arteries are normal. There is occlusion of the left internal carotid artery at its origin. Posterior circulation: The origins of the vertebral arteries appear patent. However, there is approximately 50% narrowing seen above vertebral artery origins. There is an approximately 60% stenosis involving the left vertebral artery. More superior portions of both vertebral arteries otherwise demonstrate normal course and caliber, and join to form a normal appearing basilar artery. Miscellaneous: Subclavian arteries appear patent. Pre-contrast images through the neck show no soft tissue abnormalities. IMPRESSION: BRAIN MRI: Subacute infarction seen involving the right frontal lobe and right basal ganglia posterior to the area of prior infarction. An area of luxury perfusion can be seen. BRAIN MR ANGIOGRAM: There is nonvisualization of the left intracranial internal carotid artery. The anterior circulation of the brain on the left is within normal limits, from collateral circulation across the [place]. There is a focal narrowing of the distal right vertebral artery, approximately 60%. NECK MR ANGIOGRAM: The left internal carotid arteries and its origin. There is a focal narrowing of the distal left vertebral artery, approximately 60%. There is approximately 50% narrowing seen of the origins of both vertebral arteries. Dictated by: Pavan Solomon M.D. on 12/23/2018 at 14:49 Approved by: Pavan Solomon M.D. on 12/23/2018 at 14:58
[2018-12-23 12:05] LABS: Bacteria Urine None Seen; WBC Urine None Seen (0-5/HPF)
[2018-12-23 12:07] LABS: Urine Amphetamines Negative (Negative); Urine Barbiturates Negative (Negative); Urine Benzodiazepines Negative (Negative); Urine Cocaine Negative (Negative); Urine MDMA Negative (Negative); Urine Methadone Negative (Negative); Urine Methamphetamines Negative (Negative); Urine Morphine/Opi cutoff 2000 Negative (Negative); Urine Oxycodone Negative (Negative); Urine Phencyclidine Negative (Negative); Urine THC Negative (Negative); Urine Tricyclic Antidepressant Negative (Negative)
[2018-12-23 12:15] LABS: Appearance Urine UA CLEAR; Bilirubin Urine UA NEGATIVE (NEGATIVE); Color Urine UA YELLOW; Glucose Urine UA NEGATIVE (Negative); Ketones Urine UA NEGATIVE (NEGATIVE); Leukocyte Esterase Urine UA NEGATIVE (NEGATIVE); Nitrite Urine UA NEGATIVE (Negative); Occult Blood Urine UA 2+ (Negative); Protein Urine UA NEGATIVE (Negative); Specific Gravity Urine UA 1.015 (1.000-1.035); Urobilinogen Urine UA 0.2 E.U./dL (0.2)
[2018-12-23 12:22] LABS: Culture Indicated Urine Cult Not Indicated; RBC Urine 1-5/HPF (0-5/HPF)
--- NOTE | 2018-12-23 13:05 | PC.ADMIT ---
Addendum entered by Samina Rivero R.N. 12/23/18 15:42: HOUSE ARREST BRACELET REMOVED PRIOR TO MRI. LEFT BRACELET AT MA[facility] AND NUMBER TO CALL WHEN PATIENT DC'S. Addendum entered by Samina Rivero R.N. 12/23/18 13:54: PATIENT WANTING TO LEAVE AMA. NOTIFIED MD WHO PROMPTLY CAME TO PATIENT BEDSIDE. PATIENT WANTS LUNCH, OXYCODONE FOR HIS BACK PAIN AND CLONAZEPAM PRIOR TO MRI. MD AGREES AND PATIENT AGREES TO STAY UNTIL MRI AND MD RETURNS. PROVIDED LARGE COB SALAD AND JUICE. NO DIFFICULTY W/ SWALLOW. BEDSIDE SWALLOW SCREEN PERFORMED IN ED. Original Note: ANKLE BRACELET: PATIENT HAS A STAY AT HOME MONITOR ON HIS RIGHT ANKLE FOR HOUSE ARREST. CALLED COMPANY AND SPOKE WITH VANDANA. SHE SPOKE WITH HER LAND SURVEYOR MANAGER REGARDING PATIENT'S ORDER FOR MRI, AND NEED TO REMOVE ANKLET. VANDANA CALLED BACK W/ INSTRUCTIONS: MAY REMOVE ANKLET, STORE AT MAIN NURSES STATION WITH PATIENT'S NAME ON IT AND THEY WILL COME TO PICK IT UP. CALL THEM WHEN PATIENT DISCHARGES. [phone]. PATIENT IS RESTLESS. STATES HE WANTS TO GET OUT OF HERE. C/O LOW BACK PAIN RADIATING DOWN RIGHT LEG. CMS INTACT. RATES 7/10. FEELS THE NEED TO PACE. STEADY ON FEET BUT HAS HAD 1 FALL IN PAST 3 MO'S WHERE HIS LEGS BUCKLED. BED ALARM WHEN NOT 1:1. MRI WILL BE COMPLETED AT 1500. [id number] Admission Note: The patient,Fidel Erwin,53 y/o, was given written information regarding hospital policies, unit procedures and contact persons. Patient's smoking status: Current every day smoker. Vital Signs - 8 hr 12/23/18 07:46 12/23/18 08:04 12/23/18 09:02 Temperature 96.9 F L Pulse Rate 70 54 L 56 L Respiratory Rate 18 16 18 Blood Pressure 181/87 H Blood Pressure [Right Arm] 142/74 H 148/68 H Pulse Oximetry 99 99 99 12/23/18 10:03 12/23/18 11:13 Temperature Pulse Rate 65 53 L Respiratory Rate 18 18 Blood Pressure Blood Pressure [Right Arm] 153/60 H 141/80 H Pulse Oximetry 99 98
[2018-12-23] MEDS: clonazePAM 0.5 MG TABLET 1 MG PO ×2 (14:23→22:15)
[2018-12-23] MEDS: OXYCODONE 5 MG/5 ML ORAL SOLUTION 10 MG PO (14:23)
[2018-12-23 21:40] LABS: Cholesterol 148 mg/dL (140-199); HDL Cholesterol 28 mg/dL (40-60); LDL Cholesterol Calculated 87 mg/dL (<100); PTT Partial Thromboplastin Tim 34 SECONDS (26.4-36.2); Triglycerides 167 mg/dL (35-150)
[2018-12-23 21:42] LABS: Hemoglobin A1C% w Est Avg Glu 5.1 % (4.0-6.0)
[2018-12-23] MEDS: OLANZapine 2.5 MG TABLET 5 MG PO (22:10)
[2018-12-23] MEDS: BUSPIRONE 15 MG TABLET 30 MG PO (22:11)
[2018-12-23] MEDS: PROPRANOLOL 10 MG TABLET PO (22:11)
[2018-12-23 22:14] LABS: Thyroid Stimulating Hormone 1.85 uIU/mL (0.47-4.68)
[2018-12-23] MEDS: KETOROLAC 30 MG/ML VIAL IV (22:15)
[2018-12-23] MEDS: ATORVASTATIN 20 MG TABLET 80 MG PO (22:15)
[2018-12-23] MEDS: TIZANIDINE 4 MG TABLET PO (22:18)
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
[2018-12-24 04:10] VITALS: BP 111/69; PULSE 58; RESP 18; TEMP 36.2; O2SAT 97
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
[2018-12-24] MEDS: NICOTINE 21 MG PATCH TOP (06:23)
[2018-12-24 07:11] LABS: Add Manual Diff / Slide Review NO; Basophils Absolute Auto 0 /uL (0-100); Basophils Percent Auto 0.6 % (0-2); Eosinophils Absolute Auto 200 /uL (0-450); Eosinophils Percent Auto 3.9 % (2-4); Hematocrit 33.5 % (41-53); Hemoglobin 11.9 g/dL (13.5-17.5); Lymphocytes Absolute Auto 1400 /uL (1100-4500); Lymphocytes Percent Auto 27.8 % (25-40); Mean Corpuscular HGB Conc 35.6 % (30-36); Mean Corpuscular Hemoglobin 32.1 PG (26-34); Mean Corpuscular Volume 90.2 fL (80-100); Monocytes Absolute Auto 400 /uL (0-900); Monocytes Percent Auto 7.7 % (3-14); Neutrophils Absolute Auto 3000 /uL (1500-7000); Platelet Count 158 X10^3/uL (150-400); Red Blood Cell Count 3.71 X10^6/uL (4.5-5.9); Red Cell Distribution Width 12.3 % (11.6-14.8)
[2018-12-24 07:19] LABS: BUN Creatinine Ratio 28.6 (6-22); Blood Urea Nitrogen 20 mg/dL (9-20); Calcium 8.8 mg/dL (8.4-10.2); Carbon Dioxide 24 mmol/L (22-32); Chloride 109 mmol/L (98-107); Estimated Glomerular Filt Rate > 60.0 mL/min (>60); Glucose 105 mg/dL (70-100); HEMOLYSIS < 15 (0-50); Magnesium 1.9 mg/dL (1.6-2.3); Sodium 141 mmol/L (137-145)
[2018-12-24 07:55] VITALS: BP 162/97; PULSE 70; RESP 16; TEMP 36.4; O2SAT 98
[2018-12-24] MEDS: ENOXAPARIN 40 MG/0.4 ML SYRINGE SUBCUT (08:19)
[2018-12-24] MEDS: LISINOPRIL 20 MG TABLET PO (08:20)
[2018-12-24] MEDS: CLOPIDOGREL 75 MG TABLET PO (08:20)
[2018-12-24] MEDS: clonazePAM 0.5 MG TABLET 1 MG PO ×2 (08:20→21:56)
[2018-12-24] MEDS: PROPRANOLOL 10 MG TABLET PO ×2 (08:20→21:56)
[2018-12-24] MEDS: OLANZapine 2.5 MG TABLET 5 MG PO ×2 (08:21→21:57)
[2018-12-24] MEDS: buPROPion XL 150 MG TAB 450 MG PO (08:21)
[2018-12-24] MEDS: TIZANIDINE 4 MG TABLET PO ×2 (08:21→21:57)
[2018-12-24] MEDS: ACETAMINOPHEN 325 MG TABLET 650 MG PO (08:21)
[2018-12-24] MEDS: ASPIRIN EC 81 MG TABLET PO (08:21)
[2018-12-24] MEDS: METOPROLOL ER 25 MG TABLET PO (08:21)
[2018-12-24] MEDS: SERTRALINE 50 MG TABLET PO (08:21)
[2018-12-24] MEDS: BUSPIRONE 15 MG TABLET 30 MG PO ×2 (08:22→21:56)
[2018-12-24] MEDS: SODIUM CHLORIDE 0.9% 1,000 ML 150 ML IV ×2 (08:42→21:58)
[2018-12-24] MEDS: OXYCODONE 5 MG/5 ML ORAL SOLUTION 10 MG PO ×2 (08:52→17:01)
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
[2018-12-24 12:05] VITALS: BP 112/64; PULSE 84; RESP 16; TEMP 36.2; O2SAT 97
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
[2018-12-24 15:35] VITALS: BP 103/57; PULSE 51; RESP 18; TEMP 36.3; O2SAT 98
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
[2018-12-24 19:45] VITALS: BP 135/86; PULSE 50; RESP 16; TEMP 36.4; O2SAT 98
[2018-12-24] MEDS: ATORVASTATIN 20 MG TABLET 80 MG PO (21:56)
--- NOTE | 2018-12-24 22:41 | PC.NURSE ---
Pt following [employer] instructions for eating. Reminding pt to swallow twice per bite, looking down at l. elbow with swallow, alternate drinks and food. Pt does cough at times while eating or afterwards but he states it's a smoker's cough
[2018-12-25 01:25] VITALS: BP 107/59; PULSE 47; RESP 17; TEMP 36.4; O2SAT 97
[2018-12-25] MEDS: ACETAMINOPHEN 325 MG TABLET 650 MG PO (05:55)
[2018-12-25] MEDS: OXYCODONE 5 MG/5 ML ORAL SOLUTION 10 MG PO (05:55)
[2018-12-25] MEDS: SODIUM CHLORIDE 0.9% 1,000 ML 150 ML IV (05:57)
[2018-12-25 06:09] VITALS: BP 153/90; PULSE 56; RESP 16; TEMP 36.7; O2SAT 98
[2018-12-25 07:30] VITALS: BP 153/83; PULSE 54; RESP 16; TEMP 36.4; O2SAT 99
[2018-12-25] MEDS: ASPIRIN EC 81 MG TABLET PO (08:21)
[2018-12-25] MEDS: BUSPIRONE 15 MG TABLET 30 MG PO (08:21)
[2018-12-25] MEDS: clonazePAM 0.5 MG TABLET 1 MG PO (08:21)
[2018-12-25] MEDS: buPROPion XL 150 MG TAB 450 MG PO (08:21)
[2018-12-25] MEDS: LISINOPRIL 20 MG TABLET PO (08:22)
[2018-12-25] MEDS: ENOXAPARIN 40 MG/0.4 ML SYRINGE SUBCUT (08:22)
[2018-12-25] MEDS: METOPROLOL ER 25 MG TABLET PO (08:22)
[2018-12-25] MEDS: SERTRALINE 50 MG TABLET PO (08:22)
[2018-12-25] MEDS: TIZANIDINE 4 MG TABLET PO ×2 (08:22→14:54)
[2018-12-25] MEDS: OLANZapine 2.5 MG TABLET 5 MG PO (08:22)
[2018-12-25] MEDS: NICOTINE 21 MG PATCH TOP (08:22)
[2018-12-25] MEDS: CLOPIDOGREL 75 MG TABLET PO (08:22)
[2018-12-25] MEDS: PROPRANOLOL 10 MG TABLET PO ×2 (08:22→14:54)
[2018-12-25 11:00] VITALS: BP 133/68; PULSE 47; RESP 16; TEMP 36.3; O2SAT 99
--- NOTE | 2018-12-25 11:10 | PT.IPTN ---
Current Diagnoses Cerebral infarction, unspecified (12/23/18) Physical Therapy Treatment Note M2 PT-IP Current Condition Start: 12/24/18 10:49 Freq: NEEDED Status: Active Protocol: Document 12/24/18 09:10 HH (Rec: 12/24/18 11:12 HH [id number]) Physical Therapy Current Condition Current Condition Evaluation Date 12/23/18 Treatment Diagnosis Acute CVA, HTN, L sided weakness, L facial droop Onset Date 12/23/18 Weight Bearing Status Weight Bearing Status Weight Bear as Tolerated M3 PT-IP Subjective Start: 12/24/18 10:49 Freq: NEEDED Status: Active Protocol: Document 12/25/18 11:10 GGD (Rec: 12/25/18 12:37 GGD [id number]) Subjective Physical Therapy Visit Type Type Treatment Note Visit Start Time 10:55 Visit Stop Time 11:08 Total Visit Minutes 13 Number of SENIOR ANALYST Visits 1 Physical Therapy Visit Comments Patient Comments Pt willing to work with therapy. M4 PT-IP Mobility and Gait Start: 12/24/18 10:49 Freq: NEEDED Status: Active Protocol: Document 12/25/18 11:10 GGD (Rec: 12/25/18 12:37 GGD [id number]) PT-Bed Mobility Assessment Rolling Type of Rolling Roll to Left Level of Assist Standby Assistance Supine to Sit Supine to Sit Standby Assistance Sit to Supine Sit to Supine Standby Assistance Scooting Scooting to Edge of Bed Standby Assistance PT-Transfer Assessment Sit to and From Stand Sit to and from Stand Standby Assistance Equipment Transfer Assistive Device None Orthotic/Prosthetic Devices or Brace: No Transfers Transfer Destination Chair Transfer Ability Level of Assist Standby Assistance Gait Assessment Gait Gait Assistance Required: Standby Assistance Distance (Feet) 220 Able to Maintain Weight Bearing Status Yes During Gait Assistive Devices Assistive Device None Orthotic/Prosthetic Devices or Brace: No Gait Deviations General Gait Pattern Antalgic,Decreased Stride Length,Decreased Feet Clearance,Lateral Trunk Lean Factors Limiting Gait Function Factors Limiting Gait Function Decreased Activity Tolerance, Decreased Sensation,Decreased Strength,Limited Range of Motion,Pain,Poor Balance M5 PT-IP Objective Assessments Start: 12/24/18 10:49 Freq: NEEDED Status: Active Protocol: Document 12/24/18 09:10 HH (Rec: 12/24/18 11:12 HH [id number]) Orientation Orientation/Cognition Level of Alertness Alert Orientation Name,Age,Birthday,Month,Date, Year,Day of Week,Place, Situation Language Function Ability No Deficits Noted Safety Awareness Understands Safety Issues Memory Description No Deficits Noted Gross Range of Motion Upper Extremity ROM Assessment Left Impaired Impairments L shd flexion ~120 Lower Extremity ROM Assessment Left Impaired Strength Upper Extremity Strength Assessment Left Impaired Shoulder 4-/5 Elbow 3+/5 Wrist 3+/5 Hand 3+/5 Lower Extremity Strength Assessment Left Impaired Hip 4/5 Knee 4/5 Ankle 4/5 Comments Strength Comments noticeable weakness in UE>LE, especially weight loss physician strength. Coordination Assessment Gross Coordination Gross Coordination Impaired Assessment Finger to Nose Test Minimal Impairment Pronation/Supination Test Minimal Impairment Foot Tapping Test Minimal Impairment Heel on Valentin Test Minimal Impairment Coordination Comments increased time taken for coordination test on L UE and LE. Sensation Assessment Sensation Gross Sensation WNL Muscle Tone Muscle Tone WNL Yes M6 PT-IP Treatment Start: 12/24/18 10:49 Freq: NEEDED Status: Active Protocol: Document 12/25/18 11:10 GGD (Rec: 12/25/18 12:37 GGD [id number]) Physical Therapy Treatment Education Education Provided Safety Other Treatments Other Treatment Performed standing balance NBOS EO/EC, SLS EO 5-6 secs M7 PT-IP Assessment and Plan Start: 12/24/18 10:49 Freq: NEEDED Status: Active Protocol: Document 12/25/18 11:10 GGD (Rec: 12/25/18 12:37 GGD [id number]) PT Summary Assessment and Plan Summary Assessment Summary Pt had mild unsteadiness with gait, but no LOB. He did veer to the left with gait. He had good SLS balance. Frequency of Treatment Frequency Of Treatment Once a Day Treatment Plan Physical Therapy Treatment Plan Bed Mobility Training,Transfer Training,Gait Training, Therapeutic Exercise,Balance Retraining,Discharge Planning Recommendations To Nursing Amount of Assist Needed Standby Assistance Discharge Recommendations PT Discharge Recommendations Home,Outpatient PT
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
--- NOTE | 2018-12-25 15:23 | OT.IP.TRT ---
Current Diagnoses Cerebral infarction, unspecified (12/23/18) Occupational Therapy Treatment Note M2 OT-IP Current Condition Start: 12/24/18 14:21 Freq: Status: Active Protocol: Document 12/24/18 14:21 CGR (Rec: 12/24/18 14:34 CGR [id number]) Occupational Therapy Current Condition Current Condition Evaluation Date 12/24/18 Treatment Diagnosis New onset stroke like symptoms with corresponding imaging. Diagnosis Onset Date 12/23/18 M3 OT- IP Subjective and Pain Start: 12/24/18 14:21 Freq: Status: Active Protocol: Document 12/25/18 15:12 [facility] (Rec: 12/25/18 15:23 [facility] [id number]) OT- Subjective Occupational Therapy Visit Type Type Treatment Note Visit Start Time 14:45 Visit Stop Time 15:00 Total Visit Minutes 15 Occupational Therapy Visit Comments Patient Comments Attempted to see pt for OT in AM, pt refused shower and also in PM refusing to shower and states will shower at home. Patient/Caregiver Goals To go home. OT Pain Assessment Pain When Pain Assessed At Rest Pain Present Pain Present Pain Reported M4 OT- IP ADL's Start: 12/24/18 14:21 Freq: Status: Active Protocol: Document 12/24/18 14:21 CGR (Rec: 12/24/18 14:34 CGR [id number]) OT [id number] General Evaluation Self-Feeding Ability Independent Comments OT Self-Feeding Comments Pt feeds self using both hands as needed. OT ADL-Grooming General Evaluation Grooming Ability Standby Assistance Areas Needing Assistance Face Washing OT ADL-Oral Care Comments Oral Care Comments Pt declined on this date. OT ADL-Dressing General Eval Lower Body Dressing Ability Independent Comments OT Dressing Comments Pt is clumsy with the use of his L hand to assist but is able to doff and don socks without assist. OT ADL-Toileting General Evaluation Toileting Ability Independent Comments OT Toileting Comments Pt able to stand at toilet and use urinal to urinate (d/t I/ O) OT ADL-Bathing Comments OT Bathing Comments Not performed M5 OT- IP IADL's Start: 12/24/18 14:21 Freq: Status: Active Protocol: Document 12/24/18 14:21 CGR (Rec: 12/24/18 14:34 CGR [id number]) OT-Instrumental Activities of Daily Living Deficits IADL Deficits Identified No Deficits Home Safety Awareness Awareness of Need for Assistance at Home Good Awareness Home Safety Comments Further assessment on cognition needed. Driving Driving Caregiver Provides Assist M6 OT- IP Functional Cognition Start: 12/24/18 14:21 Freq: Status: Active Protocol: Document 12/25/18 15:12 [facility] (Rec: 12/25/18 15:23 [facility] [id number]) Cognitive Factors Limiting Selfcare Function Cognitive Ability Level of Alertness Drowsy Patient Orientation Name,Age,Birthday,Month,Date, Year,Place,Situation Attention Span Ability Capable of Focused Attention Ability to Follow Commands Able to Follow One Step Commands Memory Description Short Term Impaired Cognitive Tests SLUMS Pt scored 14/30 , normal score for pt's level of education which is 10th grade is score of 25/30. Pt having difficulty with mainly items of short term memory only able to recall 2/5 objects, 2/4 answers after story read, unable to draw clock accurately, unable to calculate 2 digit subtraction and only able to come up with 8 animal names in one minutes time. M7 OT- IP Mobility and Balance Start: 12/24/18 14:21 Freq: Status: Active Protocol: Document 12/24/18 14:21 CGR (Rec: 12/24/18 14:34 CGR [id number]) OT-Transfer Assessment Sit to and From Stand Sit to and from Stand Standby Assistance Transfers Transfer Ability Standby Assistance Technique Transfer Destination Chair,Toilet Transfer Technique Stand Step Pivot Devices Transfer Assistive Devices Gait Belt OT- Gait Assessment Gait Gait Assistance Required: Standby Assistance Assistive Devices Assistive Device Gait Belt Comments Gait Ability Comments Mobility around the room with shuffed gait. OT- Balance Assessment Sitting Balance and Reactions Static Sitting Balance Ability Good Dynamic Sitting Balance Ability Fair M8 OT- IP Objective Assessments Start: 12/24/18 14:21 Freq: Status: Active Protocol: Document 12/24/18 14:21 CGR (Rec: 12/24/18 14:34 CGR [id number]) OT Gross Range of Motion Upper Extremity Range of Motion Assessment Within Functional Limits ROM Impairments Pt with delayed LUE movements but still WFL. OT Strength Upper Extremity Strength Assessment Within Functional Limits Comments Strength Comments Pt with delayed LUE movements but equally strong given focus . OT- Coordination Assessment Upper Extremity Finger to Nose Test Left UE Impaired Finger Tapping Test Left UE Impaired OT-Muscle Tone Assessment Muscle Tone WNL Yes OT Sensation Assessment Comments Summary Comments Pt states typical sensation. Edema Edema Absent M9 OT- IP Assessment and Plan Start: 12/24/18 14:21 Freq: Status: Active Protocol: Document 12/25/18 15:12 [facility] (Rec: 12/25/18 15:23 [facility] [id number]) OT Summary Assessment and Plan Summary Assessment Summary Pt insistent on going home. Based on formal cognitive assessment, pt will benefit from assist/supervision at home. Treatment Plan OT Treatment Plan ADL Training,Functional Cognition Training,Patient/ Family Education,Discharge Planning Other Treatment Recommendations and Next shower Treatment Focus LUE coordination and proprioception activities. Discharge Recommendations OT Discharge Recommendations Home with Assistance
[2018-12-25 16:05] VITALS: BMI 25.9
--- NOTE | 2018-12-25 16:10 | DIET.PN ---
Dietary Progress Note Assessment: 53y M referred to nutrition for HTN, CAD, CVA Pt total cholesterol and LDL WNL, HDL is low. Pt does his own cooking. Usually has Cheerios or oatmeal for breakfast. Does not eat jones or sausage very often. Pt interested in nutrition reccs for anxiety-suggested moderating caffeine and focus on healthy fats. HT: 167.6cm WT: 72.7kg BMI: 25.9 Labs: HDL 28 (L) Nutrition Diagnosis: Nutrition related knowledge deficit r/t diet to support brain and heart health aeb abnormal lab values (HDL 28 L), pt had many questions, was interested in nutrition education. Interventions: Educated pt on incorporating healthy fats into diet for neurological and heart health using handout given to pt. Pt interested in nutrition reccs for anxiety-suggested moderating caffeine and focus on healthy fats. Pt likes bison, sunflower seeds, and peanut butter. Willing to use bison more than beef (better fat ratio), snack on sunflower seeds more, and add peanut butter to morning oatmeal. Monitoring/Evaluations: as needed
[2018-12-25 16:11] VITALS: BP 127/57; PULSE 49; RESP 15; O2SAT 98
--- NOTE | 2018-12-25 18:18 | PC.NURSE ---
Assumed care of pt at 1500. pt sitting up in chair during bedside hand-off. [employer] consulted. Pt ate dinner sitting up in chair, following QA CONSULTANT swallow instructions, oral care provided after meal. Discharge orders from MD. This check writer salesperson called [facility] at Home Monitoring and left msg at [phone] to notify of discharge. Float RN also called and left msg. No return call. This check writer salesperson called [place] [employer] and spoke with Officer Syed whom stated pt is free to discharge. This check writer salesperson notified Officer Syed that the pt does not presently have the ankle bracelet on. Ankle bracelet that was removed for MRI is not at [facility] nursing station as per noted in chart notes.
[2018-12-25 19:29] VITALS: BP 142/77; RESP 16; TEMP 36.6; O2SAT 100
--- NOTE | 2018-12-25 20:10 | PC.NURSE ---
Discharge Note Pt A&O, VSS, no complaints of pain or discomfort. Discharge information packet given along w/ belongings, no questions/converns. Pt taken to taxi via wheelchair w/ all belongings by this RN.
== END 2018-12-25 20:10 | disposition home or self-care (01) | DRG 65 ==
LOC: ED 10:35 → AC 10:58
PROVIDERS: Nurse Practitioner Adult Health; Admitting Provider Internal Medicine; Emergency Provider Emergency Medicine; Visit Provider Internal Medicine
DX: I63.9 Cerebral infarction, unspecified (principal); G81.94 Hemiplegia, unspecified affecting left nondominant side; F60.81 Narcissistic personality disorder; F60.0 Paranoid personality disorder; F17.210 Nicotine dependence, cigarettes, uncomplicated; I10 Essential (primary) hypertension; I25.10 Atherosclerotic heart disease of native coronary artery without angina pectoris; Z95.1 Presence of aortocoronary bypass graft; E78.5 Hyperlipidemia, unspecified; G89.29 Other chronic pain; R00.1 Bradycardia, unspecified
CPT/HCPCS: 36591; 70450; 70548; 70553; 80048; 80053; 80061; 80305; 81001; 83036; 83735; 84443; 85025; 85610; 85730; 92610; 93005; 93306; 97116; 97127; 97161; 97165; 99283; 99285; 99406; A9579; J1650; J1885

== ENCOUNTER 2018-12-28 08:52 | Emergency (ER) | payer OTHER, SELFPAY ==
[2018-12-23 12:37] VITALS: BMI 25.2
[2018-12-28 09:34] VITALS: BP 139/72; PULSE 55; RESP 17; TEMP 36.6; O2SAT 98
--- NOTE | 2018-12-28 09:36 | ED.HA ---
HPI - Headache General Chief Complaint: Headache Stated Complaint: eyes are burning,bad headache one side Time Seen by Provider: 12/28/18 09:36 Source: patient and old records reviewed Mode of arrival: ambulatory Limitations: no limitations History of Present Illness HPI Narrative: Patient 53-year-old male with history of at least 2 strokes 1 last week discharged from the hospital on Thursday presenting today with worsening headache in flashing lights in his eyes. He says it started in the right eye and moved to left eye. He has not taken anything for his headache. He denies any loss of vision. He has no numbness tingling or weakness. Related Data Home Medications Medication Instructions Recorded Confirmed ibuprofen [Advil] 400 mg PO QID PRN 12/14/17 12/23/18 lisinopril 20 mg tablet 20 mg PO DAILY 07/15/18 12/23/18 sertraline 50 mg PO QAM 10/29/18 12/23/18 buspirone 30 mg PO BID 12/13/18 12/23/18 hydroxyzine HCl 10 mg PO Q6-8H PRN 12/13/18 12/23/18 olanzapine 5 mg PO BID 12/13/18 12/23/18 propranolol 10 mg PO TID 12/13/18 12/23/18 bupropion HCl 450 mg PO QAM 12/23/18 12/23/18 hydroxyzine HCl 25 mg PO Q6-8H PRN 12/23/18 12/23/18 tizanidine 4 mg PO TID 12/23/18 12/23/18 Previous Rx's Medication Instructions Recorded metoprolol succinate 25 mg 25 mg PO DAILY #30 tab 01/19/18 tablet,extended release 24 hr clonazepam 0.25 mg PO BID #14 tab 11/21/18 atorvastatin [Lipitor] 80 mg PO BEDTIME 30 Days tab 12/25/18 clopidogrel 75 mg PO DAILY 30 Days tab 12/25/18 Allergies Allergy/AdvReac Type Severity Reaction Status Date / Time No Known Drug Allergies Allergy Verified 12/23/18 07:48 Review of Systems Review of Systems ROS Unobtainable: All systems reviewed & are unremarkable except as noted in HPI and below Constitutional Constitutional: Denies chills, Denies fever(s), Denies lethargy and Denies weakness Eyes Eyes: Denies diplopia, Reports floaters, Denies loss of vision, Reports seeing flashes, Denies photophobia and Denies spots in vision ENT Ears, Nose, Mouth, and Throat: Denies change in voice, Denies neck pain and Denies sore throat Cardiovascular Cardiovascular: Denies chest pain, Denies irregular heart rhythm, Denies lightheadedness, Denies palpitations, Denies dyspnea, Denies dyspnea on exertion and Denies orthopnea Respiratory Respiratory: Denies cough, Denies dyspnea, Denies dyspnea on exertion and Denies wheezing Gastrointestinal Gastrointestinal: Denies abdominal pain, Denies change in bowel habits, Denies diarrhea, Denies nausea and Denies vomiting Genitourinary Genitourinary: Denies hematuria, Denies flank pain, Denies urinary incontinence and Denies urinary urgency Musculoskeletal Musculoskeletal: Denies neck pain Integumentary/Breasts Skin/Breast: Denies pruritus, Denies erythema, Denies rash and Denies wounds Neurologic Neurologic: Reports as per HPI, Denies loss of vision and Denies weakness Endocrine Endocrine: Denies palpitations Allergic/Immunologic Allergic/Immunologic: Denies wheezing FOR[facility]LY [facility], [facility] Social History household members: family Smoking Status: Current every day smoker alcohol intake: former Exam Initial Vital Signs Initial Vital Signs: Vital Signs Temperature 97.9 F 12/28/18 09:34 Pulse Rate 55 L 12/28/18 09:34 Respiratory Rate 17 12/28/18 09:34 Blood Pressure 139/72 12/28/18 09:34 Pulse Oximetry 98 12/28/18 09:34 GENERAL: Well-appearing, well-nourished and in no acute distress. HEENT: Head atraumatic,EOMI, pupils reactive, left facial droop Both eyes eye was treated with proparacaine, stained with fluorescein. No dye uptake. No foreign body. Left eye pressure 24 mg of mercury right eye pressure 17 mg of mercury CARDIOVASCULAR: Regular rate and rhythm without murmurs, rubs or gallops. RESPIRATORY: Breath sounds equal bilaterally, no wheezes rales or rhonchi. ABDOMEN: Soft, nontender. Normoactive bowel sounds all 4 quadrants. No guarding or rebound. EXTREMITIES: Normal range of motion, no clubbing or edema. Neurovascularly intact NEUROLOGICAL: Alert and oriented x4.Normal gait and speech. Cranial nerves II through XII grossly intact. Good [id number], good evif-sp-[id number], strength equal bilaterally, no dysarthria or aphasia, sensation in tact to soft touch bilaterally, no visual changes, left facial droop SKIN: Warm, dry, no laceration, no petechiae, no rashes or lesions. Scores NIH Stroke Scale Level of Conciousness: Alert, keenly responsive Ask month/age: Answers both questions correctly. Open/close eyes, close hand: Performs both tasks correctly Best gaze horizontal: Normal Visual estrella: No visual loss Facial palsy: Partial paralysis, total or near total paralysis of lower face Left arm drift: No drift for full 10 sec Right arm drift: No drift for full 10 sec Left leg drift: No drift for full 10 sec Right leg drift: No drift for full 10 sec Limb ataxia: Absent Sensory on face/arms/legs: Normal, no sensory loss Best language: No aphasia, normal Dysarthria: Normal Extinction or inattention: No abnormality Total NIH Stroke scale score: 2 Course Orders Ordered: ED Orders 12/28/18 09:39 EKG-12 Lead Stat 12/28/18 09:41 CT head/brain wo con Stat 12/28/18 10:35 Complete Blood Count AUTO DIFF Stat Comprehensive Metabolic Panel Stat Partial Thromboplastin Time Stat Prothrombin Time INR Stat Discontinued Medications Lorazepam (Ativan) 1 mg PO NOW ONE Stop: 12/28/18 10:49 Last Admin: 12/28/18 11:09 Dose: 1 mg Documented by: MEISENWiliam Proparacaine HCl (Parcaine 0.5% Ophth Mary Beth) 1 drops EYE-BOTH NOW ONE Stop: 12/28/18 10:49 Last Admin: 12/28/18 11:09 Dose: 1 drops Documented by: RYANNSENWiliam Vital Signs Vital signs: Vital Signs - 8 hr 12/28/18 09:34 12/28/18 11:10 12/28/18 11:12 Temperature 97.9 F Pulse Rate 55 L 51 L Respiratory Rate 17 18 Blood Pressure 139/72 Blood Pressure [Left Arm] 125/78 Pulse Oximetry 98 99 MDM - Headache Lab Data Attestation: I reviewed the patient's lab results. Result diagrams: 12/28/18 10:35 12/28/18 10:35 Labs: Lab Results 12/28/18 12/28/18 12/28/18 Range/Units 10:35 10:35 10:35 WBC 8.2 (4.5-11.0) X10^3/uL RBC 4.75 (4.5-5.9) X10^6/uL Hgb 15.2 (13.5-17.5) g/dL Hct 42.7 (41-53) % MCV 89.9 (80-100) fL MCH 32.1 (26-34) PG MCHC 35.7 (30-36) % RDW 12.3 (11.6-14.8) % Plt Count 211 (150-400) X10^3/uL Neut % (Auto) 68.2 (50-75) % Lymph % (Auto) 22.0 L (25-40) % [place] % (Auto) 5.2 (3-14) % Eos % (Auto) 3.7 (2-4) % Baso % (Auto) 0.9 (0-2) % Neut # (Auto) 5600 (8969-4973) /uL Lymph # (Auto) 1800 (0079-8290) /uL [place] # (Auto) 400 (0-900) /uL Eos # (Auto) 300 (0-450) /uL Baso # (Auto) 100 (0-100) /uL PT 12.3 (10.1-12.7) SECONDS INR 1.1 (0.9-1.3) APTT 37 H D (26.4-36.2) SECONDS Sodium 142 (137-145) mmol/L Potassium 4.2 (3.4-5.1) mmol/L Chloride 104 (98-107) mmol/L Carbon Dioxide 26 (22-32) mmol/L BUN 20 (9-20) mg/dL Creatinine 0.80 (0.66-1.25) mg/dL Estimated GFR > 60.0 (>60) mL/min BUN/Creatinine Ratio 25.0 H (6-22) Glucose 90 (70-100) mg/dL Calcium 10.4 H (8.4-10.2) mg/dL Total Bilirubin 0.9 (0.2-1.3) mg/dL AST 27 (17-59) IU/L ALT 32 (21-72) IU/L Alkaline Phosphatase 53 (38-126) U/L Total Protein 8.1 (6.3-8.2) g/dL Albumin 4.8 (3.5-5.0) g/dL Globulin 3.3 (1.7-4.1) g/dL Albumin/Globulin Ratio 1.5 (1.0-2.8) Imaging Data CT scan - head: Radiologist's impression: PROCEDURE: CT HEAD/BRAIN WO CON INDICATIONS: headache flashing lights recent cva TECHNIQUE: Noncontrast 4.5 mm thick angled axial sections acquired from the foramen magnum to the vertex, with coronal and sagittal reformats. For radiation dose reduction, the following was used: automated exposure control, adjustment of mA and/or kV according to patient size. COMPARISON: [facility], MR, MR HEAD/BRAIN WO CON, 09/21/2018, 14:09. [facility], CT, CT HEAD/BRAIN WO CON, 10/29/2018, 10:33. [facility], MR, MR STROKE, 12/23/2018, 14:45. [facility], CT, CT HEAD/BRAIN WO CON, 12/23/2018, 8:07. FINDINGS: Image quality: Excellent. CSF spaces: Basal cisterns are patent. No extra-axial fluid collections. Ventricles are normal in size and shape. Brain: There is a remote anterior right frontal lobe infarction seen. There is early encephalomalacia seen within the region of known acute infarction just posterior to this remote, completed infarction. No midline shift. No intracranial masses or hemorrhage. Bustillo-white matter interface is normal. Skull and face: Calvarium and visualized facial bones are intact, without suspicious lesions. Sinuses: Visualized sinuses and mastoids are clear. IMPRESSION: No acute intracranial hemorrhage. Mild interval evolution of the area of ischemia posterior to the area of known, completed, remote right MCA infarction. Dictated by: Pavan Solomon M.D. on 12/28/2018 at 8:56 ECG Data Attestation: I personally reviewed and interpreted this ECG as follows: Prior ECG tracings: available for review Interpretation: Sinus rhythm rate 51 T-wave inversion noted in lead 3 unchanged from previous EKGs no ST elevation MDM Narrative Medical decision making narrative: The patient has no new focal deficits. He had some flashing lights in both eyes no loss of vision. Possible migraine like headache he also had an associated headache with it. He started having some anxiety he typically does take anxiety medication he was given Ativan for it. This seems to have helped. Discharge Plan Departure Patient Disposition: Home Clinical Impression: Headache Qualifiers: Headache type: other headache syndrome Qualified Code(s): G44.89 - Other headache syndrome Discharge Date/Time: 12/28/18 11:53 Instructions: DI for Migraine Activity Restrictions/Additional Instructions: *You have been diagnosed with headache *What to do: No evidence of stroke today. Blood work reassuring *Continue to take medications as directed *Follow up with your primary care provider in 2-3 days *Return to ER if you should have worsening headache weakness numbness tingling of blackening or loss of vision or any new, worsening or concerning symptoms Prescriptions: No Action metoprolol succinate 25 mg tablet extended release 24 hr 25 mg PO DAILY Qty: 30 RF: 5 sertraline 50 mg Tablet 50 mg PO QAM RF: 0 clonazepam 0.25 mg tablet,disintegrating 0.25 mg PO BID Qty: 14 RF: 0 ibuprofen [Advil] 200 mg Tablet 400 mg PO QID PRN (Reason: Pain (Scale Score 1-3)) RF: 0 olanzapine 5 mg Tablet 5 mg PO BID RF: 0 buspirone 30 mg tablet 30 mg PO BID RF: 0 hydroxyzine HCl 10 mg tablet 10 mg PO Q6-8H PRN (Reason: Anxiety) RF: 0 propranolol 10 mg tablet 10 mg PO TID RF: 0 tizanidine 4 mg tablet 4 mg PO TID RF: 0 hydroxyzine HCl 25 mg tablet 25 mg PO Q6-8H PRN (Reason: Anxiety) RF: 0 bupropion HCl 150 mg tablet extended release 24 hr 450 mg PO QAM RF: 0 atorvastatin [Lipitor] 20 mg Tablet 80 mg PO BEDTIME 30 Days RF: 0 clopidogrel 75 mg Tablet 75 mg PO DAILY 30 Days RF: 0 lisinopril 20 mg tablet 20 mg PO DAILY RF: 0 Referrals: Leonie Ambrose MD [Non-Staff] -
--- NOTE | 2018-12-28 09:41 | DI.CT.S_ITS ---
PROCEDURE: CT HEAD/BRAIN WO CON INDICATIONS: headache flashing lights recent cva TECHNIQUE: Noncontrast 4.5 mm thick angled axial sections acquired from the foramen magnum to the vertex, with coronal and sagittal reformats. For radiation dose reduction, the following was used: automated exposure control, adjustment of mA and/or kV according to patient size. COMPARISON: [facility], MR, MR HEAD/BRAIN WO CON, 09/21/2018, 14:09. [facility], CT, CT HEAD/BRAIN WO CON, 10/29/2018, 10:33. [facility], MR, MR STROKE, 12/23/2018, 14:45. [facility], CT, CT HEAD/BRAIN WO CON, 12/23/2018, 8:07. FINDINGS: Image quality: Excellent. CSF spaces: Basal cisterns are patent. No extra-axial fluid collections. Ventricles are normal in size and shape. Brain: There is a remote anterior right frontal lobe infarction seen. There is early encephalomalacia seen within the region of known acute infarction just posterior to this remote, completed infarction. No midline shift. No intracranial masses or hemorrhage. Bustillo-white matter interface is normal. Skull and face: Calvarium and visualized facial bones are intact, without suspicious lesions. Sinuses: Visualized sinuses and mastoids are clear. IMPRESSION: No acute intracranial hemorrhage. Mild interval evolution of the area of ischemia posterior to the area of known, completed, remote right MCA infarction. Dictated by: Pavan Solomon M.D. on 12/28/2018 at 8:56 Approved by: Pavan Solomon M.D. on 12/28/2018 at 8:58
--- NOTE | 2018-12-28 09:43 | PC.NURSE ---
dr. harper aware of pt/ no code stroke to be called per
--- NOTE | 2018-12-28 10:43 | PC.NURSE ---
pt with left facial droop, reports, weakness on left hand, today with right eye burning feeling ,+headache.
[2018-12-28 10:45] LABS: Add Manual Diff / Slide Review NO; Basophils Absolute Auto 100 /uL (0-100); Basophils Percent Auto 0.9 % (0-2); Eosinophils Absolute Auto 300 /uL (0-450); Eosinophils Percent Auto 3.7 % (2-4); Hematocrit 42.7 % (41-53); Hemoglobin 15.2 g/dL (13.5-17.5); Lymphocytes Absolute Auto 1800 /uL (1100-4500); Mean Corpuscular HGB Conc 35.7 % (30-36); Mean Corpuscular Hemoglobin 32.1 PG (26-34); Mean Corpuscular Volume 89.9 fL (80-100); Monocytes Absolute Auto 400 /uL (0-900); Monocytes Percent Auto 5.2 % (3-14); Neutrophils Absolute Auto 5600 /uL (1500-7000); Neutrophils Percent Auto 68.2 % (50-75); Platelet Count 211 X10^3/uL (150-400); Red Blood Cell Count 4.75 X10^6/uL (4.5-5.9); Red Cell Distribution Width 12.3 % (11.6-14.8); White Blood Cell Count 8.2 X10^3/uL (4.5-11.0)
[2018-12-28 10:50] LABS: INR 1.1 (0.9-1.3); Prothrombin Time 12.3 SECONDS (10.1-12.7)
[2018-12-28 10:52] LABS: PTT Partial Thromboplastin Tim 37 SECONDS (26.4-36.2)
[2018-12-28 10:56] LABS: Alanine Aminotransferase 32 IU/L (21-72); Albumin 4.8 g/dL (3.5-5.0); Albumin Globulin Ratio 1.5 (1.0-2.8); Alkaline Phosphatase 53 U/L (38-126); Aspartate Aminotransferase 27 IU/L (17-59); Bilirubin Total 0.9 mg/dL (0.2-1.3); Blood Urea Nitrogen 20 mg/dL (9-20); Calcium 10.4 mg/dL (8.4-10.2); Carbon Dioxide 26 mmol/L (22-32); Chloride 104 mmol/L (98-107); Estimated Glomerular Filt Rate > 60.0 mL/min (>60); Globulin 3.3 g/dL (1.7-4.1); Glucose 90 mg/dL (70-100); HEMOLYSIS < 15 (0-50); Potassium 4.2 mmol/L (3.4-5.1); Sodium 142 mmol/L (137-145); Total Protein 8.1 g/dL (6.3-8.2)
[2018-12-28] MEDS: LORazepam 0.5 MG TABLET 1 MG PO (11:09)
[2018-12-28] MEDS: PROPARACAINE 0.5% OPHTH SOL 1 DROPS EYE-BOTH (11:09)
[2018-12-28 11:10] VITALS: RESP 18
[2018-12-28 11:12] VITALS: BP 125/78; PULSE 51; O2SAT 99
== END 2018-12-28 11:53 | disposition home or self-care (01) ==
PROVIDERS: Emergency Provider Emergency Medicine
DX: G44.89 Other headache syndrome (principal)
CPT/HCPCS: 36591; 70450; 80053; 85025; 85610; 85730; 93005; 93010; 99283; 99285

== ENCOUNTER → 2019-01-19 09:05 | Outpatient (CLI) | payer OTHER, SELFPAY ==
[2018-01-11 08:55] VITALS: BMI 25.8
[2018-12-23 12:37] VITALS: BMI 25.2
--- NOTE | 2019-01-19 | DI.ECHO.S_ITS ---
[place] [facility]---------+ [facility] +---------+ : : [address] : : : : [id number] : : : : Phone: [phone] Echocardiogram Report + + :Name: ALAN RAJPUT Study Date: 01/19/2019 Height: 66 in : :[facility] Exam Location: [place] Weight: 156 lb : : Gender: Male BSA: 1.8 m2 : :: 1965 Age: 53 yrs BP: 110/79 mmHg: :Reason For Study: Cardiomyopathy : :Ordering Physician: Shady Monae : :Tammi Performed By: Cleo Page : + + Interpretation Summary 1) Normal left ventricular size with moderately to severely reduced systolic function (EF 30-35%). 2) The basal to mid inferior and basal to mid inferolateral li are akinetic and scarred. The inferoseptal wall is hypokinetic. 3) Normal right ventricular size with mildly reduced function. 4) Mitral valve annuloplasty ring in place with no stenosis or regurgitation. 5) Suspect mild aortic stenosis is present. 6) Compared to the Echo done 12/25/2018, no significant change. Procedure: A two-dimensional transthoracic echocardiogram with color flow and Doppler was performed. The study quality was technically adequate. Comparison is made with the echocardiogram of 12/25/2018. The patient was in normal sinus rhythm during the exam. Left Ventricle: The left ventricle is normal in size. The ejection fraction is estimated to be 30-35%. Left ventricular systolic function is moderate to severely reduced. The basal to mid inferior and basal to mid inferolateral li are akinetic and scarred. The inferoseptal wall is hypokinetic. Right Ventricle: The right ventricle is normal size. Right ventricular systolic function is mildly reduced. Atria: Both atria are normal in size. There is no Doppler evidence for an interatrial shunt. Mitral Valve: An annuloplasty ring is noted in the mitral position. There is trace mitral regurgitation. Aortic Valve: The aortic valve is not well visualized. There is mild aortic stenosis. No aortic regurgitation is present. Tricuspid Valve: The tricuspid valve is normal in structure and function. There is a trace or physiologic amount of tricuspid regurgitation. Pulmonary artery pressures cannot be estimated because of the lack of a measurable TR jet velocity. Pulmonic Valve: The pulmonic valve is not well visualized. There is a trace or physiologic amount of pulmonic regurgitation. Great Vessels: The aortic root is normal size. The ascending aorta is normal in size. The pulmonary is not well visualized. The IVC is dilated (diameter is greater than 2.1 cm) yet it collapses greater than 50% with a sniff. This suggests a right atrial pressure of 8 mm Hg. Pericardium/ Pleura There is no pericardial effusion. There is no pleural effusion. MMode/2D Measurements & Calculations LVIDd: 5.3 cm LVOT diam: 2.0 cm LVIDs: 4.7 cm Ao root diam: 3.0 cm FS: 9.9 % asc Aorta Diam: 3.3 cm EPSS: 1.1 cm IVSd: 0.58 cm LVPWd: 0.48 cm LV bernal. diameter/BSA (cm/m^2): 2.9 LV sys. diameter/BSA (cm/m^2): 2.6 LA A2 area: 16.0 cm2 RA long axis: 3.9 cm LA A4 area: 11.4 cm2 RA area: 11.5 cm2 LA length (vol): 3.7 cm RA vol: 29.0 ml LA vol: 41.8 ml RA : 16.1 ml/m2 LA vol index: 23.3 ml/m2 IVC diam: 2.3 cm RVD1 (basal): 3.8 cm RVD2 (mid): 3.5 cm TAPSE: 1.5 cm Doppler Measurements & Calculations Ao V2 max: 124.3 cm/sec LVOT Max Case: 72.8 cm/sec Ao V2 mean: 86.6 cm/sec LV V1 max P.1 mmHg Ao max P.2 mmHg LV V1 VTI: 9.4 cm Ao mean P.4 mmHg LARA(I,D): 1.5 cm2 Ao V2 VTI: 19.7 cm LARA(V,D): 1.8 cm2 sev ratio: 0.48 LARA indexed to BSA (cm^2/m^2): 0.83 MV E max case: 44.2 cm/sec PA V2 max: 66.1 cm/sec MV A max case: 74.2 cm/sec PA V2 mean: 45.9 cm/sec MV E/A: 0.60 PA mean P.92 mmHg Med Peak E' Case: 4.7 cm/sec PA Accel Time: 0.07 sec E/E' med: 9.3 Lat Peak E' Case: 4.3 cm/sec E/E' lat: 10.2 E/e' average: 9.8 MV P1/2t: 62.5 msec MV P1/2t max case: 43.7 cm/sec SV(LVOT): 29.4 ml MVA(2t): 3.5 cm2 Reading Physician:05:19 PM
== END ==
PROVIDERS: Visit Provider Internal Medicine Cardiovascular Disease
DX: I42.9 Cardiomyopathy, unspecified (principal)
CPT/HCPCS: 93306

== ENCOUNTER → 2019-02-21 15:30 | Outpatient (CLI) | payer OTHER, SELFPAY ==
[2018-12-23 12:37] VITALS: BMI 25.2
[2019-02-21 17:01] LABS: BUN Creatinine Ratio 25.6 (6-22); Blood Urea Nitrogen 23 mg/dL (9-20); Calcium 10.4 mg/dL (8.4-10.2); Carbon Dioxide 29 mmol/L (22-32); Chloride 101 mmol/L (98-107); Estimated Glomerular Filt Rate > 60.0 mL/min (>60); HEMOLYSIS < 15 (0-50); Potassium 4.2 mmol/L (3.4-5.1); Sodium 139 mmol/L (137-145)
[2019-02-21 17:31] LABS: Glucose 37 mg/dL (70-100)
== END ==
PROVIDERS: Visit Provider Internal Medicine Cardiovascular Disease
DX: I10 Essential (primary) hypertension (principal)
CPT/HCPCS: 36415; 80048

== ENCOUNTER → 2019-05-26 10:37 | Outpatient (CLI) | payer OTHER, SELFPAY ==
[2018-12-23 12:37] VITALS: BMI 25.2
[2019-05-26 11:27] LABS: Add Manual Diff / Slide Review NO; Basophils Absolute Auto 0 /uL (0-100); Basophils Percent Auto 0.7 % (0-2); Eosinophils Absolute Auto 200 /uL (0-450); Eosinophils Percent Auto 3.7 % (2-4); Hematocrit 41.1 % (41-53); Hemoglobin 14.6 g/dL (13.5-17.5); Lymphocytes Absolute Auto 1600 /uL (1100-4500); Lymphocytes Percent Auto 25.7 % (25-40); Mean Corpuscular HGB Conc 35.6 % (30-36); Mean Corpuscular Hemoglobin 31.8 PG (26-34); Mean Corpuscular Volume 89.2 fL (80-100); Monocytes Absolute Auto 400 /uL (0-900); Monocytes Percent Auto 6.2 % (3-14); Neutrophils Absolute Auto 4000 /uL (1500-7000); Neutrophils Percent Auto 63.7 % (50-75); Platelet Count 216 X10^3/uL (150-400); Red Blood Cell Count 4.61 X10^6/uL (4.5-5.9); Red Cell Distribution Width 12.8 % (11.6-14.8); White Blood Cell Count 6.3 X10^3/uL (4.5-11.0)
== END ==
PROVIDERS: PCP Internal Medicine; Referring Provider Internal Medicine Cardiovascular Disease; Visit Provider Internal Medicine Cardiovascular Disease
DX: I10 Essential (primary) hypertension (principal)
CPT/HCPCS: 36415; 85025

== ENCOUNTER → 2019-06-16 14:02 | Outpatient (CLI) | payer OTHER, SELFPAY ==
[2018-12-23 12:37] VITALS: BMI 25.2
--- NOTE | 2019-06-16 | DI.MRI.S_ITS ---
PROCEDURE: MR LUMBAR SPINE WO CON INDICATIONS: LOW BACK PAIN TECHNIQUE: Noncontrast sagittal T1 spin echo and T2 fast echo, sagittal STIR, axial T1 and T2 fast spin echo through the lumbar spine. In cases with scoliosis, additional coronal T2 fast spin echo may be performed. COMPARISON: [facility], CR, XR LUMBAR SPINE 2-3V, 10/26/2017, 8:05. [facility], CT, CT ANGIO CHEST PE, 10/31/2017, 7:50. [facility], MR, L-SPINE WITHOUT CONTRAST, 06/24/2011, 16:47. FINDINGS: Image quality: Excellent. Alignment and Curvature: Trace retrolisthesis of L1 on L2 Bone Marrow: L1 compression fracture with mild height loss anteriorly. There may be slight height loss since the prior radiograph. Schmorl's node involving the inferior endplate of L1 is seen with adjacent marrow edema suggestive of subacute or acute age. Spinal Cord: Conus medullaris terminates at the T12 level. Visualized cord demonstrates normal signal and size. Paraspinous Soft Tissues: No paravertebral masses. Posterior annular fissure present at the L3-L4 level, and L4-L5 level. L1-L2: Mild central canal narrowing. Partial effacement of both lateral recesses with bilaterally symmetric appearance. Mild right foraminal stenosis. Severe left foraminal stenosis with nerve root compression. This has developed on both sides since prior study L2-L3: No high-grade central canal narrowing. Lateral recesses appear grossly patent. Mild left foraminal narrowing, which has developed since prior study. No right foraminal stenosis L3-L4: Mild central canal narrowing. Lateral recess are grossly patent. Mild left foraminal stenosis, grossly unchanged. Moderate right foraminal narrowing with nerve root compression, which has developed since prior study L4-L5: Mild to moderate central canal narrowing. Dorsal epidural lipomatosis incidentally noted. Partial effacement of both lateral recesses with bilaterally symmetric appearance. Severe right foraminal stenosis with nerve root compression. Moderate left foraminal narrowing. Findings bilaterally appear unchanged since the prior study L5-S1: No high-grade canal stenosis. Lateral recess appear patent. Mild left foraminal narrowing which appears slightly improved. Moderate right foraminal stenosis with nerve root compression. No interval change IMPRESSION: Mild L1 compression fracture. Possible slight progression of height loss since radiograph dated 10/26/17 Schmorl's node involving the inferior endplate of L1 with adjacent marrow edema suggestive of subacute versus acute age. Diffuse bilateral foraminal stenoses as detailed above by spinal level Dictated by: Kvng Lara M.D. on 06/16/2019 at 15:28 Approved by: Kvng Lara M.D. on 06/16/2019 at 15:38
== END ==
PROVIDERS: PCP Internal Medicine; Referring Provider Internal Medicine; Visit Provider Internal Medicine
DX: M54.41 Lumbago with sciatica, right side (principal); M48.56XA Collapsed vertebra, not elsewhere classified, lumbar region, initial encounter for fracture; M51.46 Schmorl's nodes, lumbar region; M48.061 Spinal stenosis, lumbar region without neurogenic claudication; M48.07 Spinal stenosis, lumbosacral region
CPT/HCPCS: 72148

== ENCOUNTER 2019-08-13 10:06 | Observation (INO) | payer OTHER, SELFPAY ==
[2018-12-23 12:37] VITALS: BMI 25.2
[2019-08-13] VITALS (8 sets, daily range): BP systolic 77–138; BP diastolic 52–71; PULSE 49–68; RESP 14–26; TEMP 36.1–36.8; O2SAT 97–99; BMI 26.6
--- NOTE | 2019-08-13 10:13 | DI.RAD.S_ITS ---
PROCEDURE: XR CHEST 1V INDICATIONS: chest pain TECHNIQUE: One view of the chest was acquired. COMPARISON: [facility], CT, PE STUDY (CTA CHEST), 07/22/2010, 18:21. [facility], CT, CT CERVICAL SPINE WO CON, 08/13/2019, 10:30. [facility], CT, CT HEAD/BRAIN WO CON, 08/13/2019, 10:30. [facility], CR, XR ANKLE LT MIN 3V, 08/13/2019, 10:24. [facility], CR, XR CHEST 1V, 10/29/2018, 10:35. [facility], CR, XR CHEST 1V, 10/31/2018, 13:03. [facility], CR, XR CHEST 1V, 11/07/2018, 13:49. [facility], CR, XR CHEST 1V, 12/10/2018, 20:37. FINDINGS: Surgical changes and devices: Sternotomy wires are seen. Mediastinal clips and an aortic valve prosthesis can be seen. Lungs and pleura: No focal infiltrates are seen. Left mid lung scarring can again be seen. No pleural effusions or pneumothorax. Mediastinum: Mediastinal contours appear normal. Heart size is normal. Bones and chest wall: No suspicious bony lesions. No displaced rib fractures are detected by plain film. Overlying soft tissues appear unremarkable. IMPRESSION: No infiltrates are seen. Stable left midlung scarring. Postoperative changes are seen. Dictated by: Pavan Solomon M.D. on 08/13/2019 at 9:59 Approved by: Pavan Solomon M.D. on 08/13/2019 at 10:01
--- NOTE | 2019-08-13 10:13 | DI.RAD.S_ITS ---
PROCEDURE: XR ANKLE LT MIN 3V INDICATIONS: syncope, fell w/ left ankle pain TECHNIQUE: 3 views of the ankle were acquired. COMPARISON: None. FINDINGS: Bones: There is a remote appearing, well-corticated avulsion fracture seen of the distal medial malleolus. No acute fractures or dislocations. Ankle mortise is normally aligned. No suspicious bony lesions. Age-appropriate bony degenerative changes are seen. Soft tissues: No tibiotalar joint effusion. Achilles tendon appears normal. IMPRESSION: No acute fractures are seen on these plain films. If there is focal tenderness, or other clinical concern for a fracture not seen on these images in this patient with a given history of trauma, please consider a dedicated CT or a short-term followup plain film series (in 1-2 weeks) for further evaluation. Dictated by: Pavan Solomon M.D. on 08/13/2019 at 10:01 Approved by: Pavan Solomon M.D. on 08/13/2019 at 10:02
--- NOTE | 2019-08-13 10:14 | DI.CT.S_ITS ---
PROCEDURE: CT CERVICAL SPINE WO CON INDICATIONS: syncope/hit head TECHNIQUE: Noncontrast 3 mm thick sections acquired from the skull base to the T4 level. Sagittal and coronal reformats were then constructed. For radiation dose reduction, the following was used: automated exposure control, adjustment of mA and/or kV according to patient size. COMPARISON: [facility], MR, C-SPINE WITHOUT CONTRAST, 06/18/2011, 17:03. [facility], CT, CT HEAD/BRAIN WO CON, 08/13/2019, 10:30. [facility], CT, C-SPINE WITHOUT CONTRAST, 02/11/2009, 21:30. FINDINGS: Image quality: Excellent. Bones: No fractures or dislocations. Visualized superior ribs are intact. Age-appropriate bony degenerative changes are seen. Sternotomy wires are partially seen. Soft tissues: Prevertebral soft tissues are normal in thickness. No paravertebral hematomas. No apical pneumothoraces. IMPRESSION: Negative for acute fracture. Incidental note is made of: Bony degenerative changes Sternotomy wires Dictated by: Pavan Solomon M.D. on 08/13/2019 at 9:50 Approved by: Pavan Solomon M.D. on 08/13/2019 at 9:51
--- NOTE | 2019-08-13 10:14 | DI.CT.S_ITS ---
PROCEDURE: CT HEAD/BRAIN WO CON INDICATIONS: syncope/hit head TECHNIQUE: Noncontrast 4.5 mm thick angled axial sections acquired from the foramen magnum to the vertex, with coronal and sagittal reformats. For radiation dose reduction, the following was used: automated exposure control, adjustment of mA and/or kV according to patient size. COMPARISON: [facility], MR, MR STROKE, 12/23/2018, 14:45. [facility], CT, CT HEAD/BRAIN WO CON, 12/23/2018, 8:07. [facility], CT, CT HEAD/BRAIN WO CON, 10/29/2018, 10:33. [facility], CT, CT HEAD/BRAIN WO CON, 09/21/2018, 11:32. [facility], CT, HEAD WITHOUT CONTRAST, 02/11/2009, 21:30. [facility], CT, CT CERVICAL SPINE WO CON, 08/13/2019, 10:30. [facility], CT, CT HEAD/BRAIN WO CON, 12/28/2018, 9:46. FINDINGS: Image quality: This examination is limited by involuntary motion artifact. CSF spaces: Basal cisterns are patent. No extra-axial fluid collections. Ventricles are normal in size and shape. Brain: There is a completed right MCA territory infarction seen anteriorly. No midline shift. No intracranial masses or hemorrhage. Bustillo-white matter interface is normal. Skull and face: Calvarium and visualized facial bones are intact, without suspicious lesions. Sinuses: Visualized sinuses and mastoids are clear. IMPRESSION: Limited study, without acute intracranial hemorrhage. Completed right MCA territory infarction anteriorly. Dictated by: Pavan Solomon M.D. on 08/13/2019 at 9:48 Approved by: Pavan Solomon M.D. on 08/13/2019 at 9:49
[2019-08-13 10:26] LABS: Add Manual Diff / Slide Review NO; Basophils Absolute Auto 0 /uL (0-100); Basophils Percent Auto 0.6 % (0-2); Eosinophils Absolute Auto 200 /uL (0-450); Hematocrit 41.6 % (41-53); Hemoglobin 14.7 g/dL (13.5-17.5); Lymphocytes Absolute Auto 1600 /uL (1100-4500); Mean Corpuscular HGB Conc 35.3 % (30-36); Mean Corpuscular Hemoglobin 31.9 PG (26-34); Mean Corpuscular Volume 90.2 fL (80-100); Monocytes Absolute Auto 300 /uL (0-900); Monocytes Percent Auto 5.4 % (3-14); Neutrophils Absolute Auto 3900 /uL (1500-7000); Platelet Count 197 X10^3/uL (150-400); Red Blood Cell Count 4.62 X10^6/uL (4.5-5.9); Red Cell Distribution Width 12.3 % (11.6-14.8)
--- NOTE | 2019-08-13 10:26 | ED_ITS ---
HPI - Syncope General Chief Complaint: Syncope Stated Complaint: left ankle twisted yest. Time Seen by Provider: 08/13/19 10:25 Source: patient Mode of arrival: Ambulatory Limitations: no limitations History of Present Illness HPI narrative: CC: passed out twice yesterday and injured left ankle HPI: The patient is a 54-year-old male came into the emergency department because he passed out twice yesterday and injured his left ankle. He has pain and discomfort in his ankle. He states that he passed out the 1st time when he was sitting stood up and walked about 10 ft at which time his head felt like it was full soda pop and fuzzy at which time he passed out and struck his forehead. The patient has a frontal headache at this time. He has had no change in vision no blind spots or loss of vision. He has no history of headaches except for after his fall in injury. The 2nd time the patient states that he was urinating at which time he passed out in the bathroom. He has had no chest pain but complains that he has had chest tightness. He denies any significant shortness of breath cough fever chills or sweats at this time. He continues to smoke cigarettes but does not drink alcohol use any drugs including marijuana. He denies ever being told that he had a myocardial infarction and damage to his heart but he had coronary artery bypass graft surgery in 2010. At that time the patient had syncope. He admits to history of hypertension but denies any diabetes mellitus. He denies any palpitations. He has had no abdominal pain nausea vomiting diarrhea melena hematochezia. He has had no bruising or bleeding abnormalities. He denies any urinary symptoms. The patient speaks in a monotone aunt with a flat affect. He states that he has a history of PTSD and admits to being depressed but does not want to hurt himself or hurt anybody else. He states that he is disabled and does not work. He states that his pain and discomfort is all about 8/10 in intensity. The patient admits that he has had a right middle cerebral artery stroke but has never had any seizures. Related Data Home Medications Medication Instructions Recorded Confirmed ibuprofen [Advil] 400 mg PO QID PRN 12/14/17 08/13/19 lisinopril 20 mg tablet 20 mg PO DAILY 07/15/18 08/13/19 sertraline 25 mg PO QAM 10/29/18 08/13/19 olanzapine 5 mg PO BID 12/13/18 08/13/19 bupropion HCl 450 mg PO QAM 12/23/18 08/13/19 hydroxyzine HCl 25 mg PO Q6-8H PRN 12/23/18 08/13/19 tizanidine 4 mg PO TID 12/23/18 08/13/19 aspirin 81 mg PO DAILY 08/13/19 08/13/19 clonidine HCl 0.1 - 0.2 mg PO BEDTIME 08/13/19 08/13/19 gabapentin 200 mg PO TID 08/13/19 08/13/19 spironolactone 12.5 mg PO DAILY 08/13/19 08/13/19 Allergies Allergy/AdvReac Type Severity Reaction Status Date / Time No Known Drug Allergies Allergy Verified 08/13/19 10:19 Review of Systems Review of Systems Narrative: His review of systems were all negative except for those mentioned in the history of present illness. 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 Does not appear toxic or ill. Has a flat affect and speaks in a monotone. The patient appears slightly gonzalez and pale HEAD: AT/NC the patient has a brownish discoloration over his left forehead which she states is a burn secondary to a rug burn EENT: PERRL, FROM of eyes, no discharge, no nystagmus NOSE:No epistaxis or nasal drainage MOUTH:Oral mucosa is moist and pink, posterior pharynx is without erythema or exudate. NECK: Supple, no obvious JVD, Trachea is midline without stridor, no palpable LN. SPINE: Palpationof the cervical, Thoracic, Lumbar or Sacral spine reveals no gross deformity or tenderness. No CVA tenderness. THORAX: No deformity, retractions, chest wall tenderness. LUNGS: Clear, symmetrical breath sounds without respiratory distress. HEART: Normal heart tones, regular rhythm and rate without murmur. ABDOMEN: Soft, non-tender, normal bowel sounds without guarding, rebound, rigidity or palpable mass. EXTREMITIES: No edema, deformity, tenderness or cyanosis. The patient's left ankle does not appear grossly deformed or or swollen. The patient has some mild swelling over the lateral malleolus with mild tenderness over the lateral malleolus and talofibular ligament. Dorsalis pedis pulses 1+ no deformity of the foot. Capillary refill is 1 to 2+ SKIN: No rash, bruising, petechiae or purpura. NEURO: Awake, alert, oriented, conversive, cranial nerves II-XII are symmetrical , moves all 4 extremities and is ambulatory. Initial Vital Signs Initial Vital Signs: Vital Signs Temperature 97.0 F L 08/13/19 10:10 Pulse Rate 59 L 08/13/19 10:10 Respiratory Rate 14 08/13/19 10:10 Blood Pressure 127/57 L 08/13/19 10:10 Pulse Oximetry 97 08/13/19 10:10 Course Course Course Narrative: 11:34 CT of the patient's head reveals is a limited study without acute intracranial hemorrhage. The patient has a completed right MCA territory infarction anteriorly. CT of the patient's cervical spine reveals no fracture or malalignment. The patient's x-ray of his left ankle reveals no fracture dislocation or malalignment. The patient's chest x-ray reveals no acute cardiopulmonary process or disease and left upper and mid lung scars and atelectasis. The patient's initial troponin was less than 0.012, a 2 hour troponin will be checked on this patient. 1210: The patient's orthostatic vital signs revealed that in the supine position is oxygen saturation was 97%, heart rate 49, blood pressure 114/52. In the sitting position his heart rate was 58 blood pressure dropped to 96/56, and in the standing position the patient's heart rate went up to 68 and his blood pressure dropped to 77/57 at which time he became very dizzy and lightheaded f elt like he might pass out. The patient will be administered IV fluids. The patient will be discussed with the hospitalist to admit. 1330 repeat troponin is less than 0.012 call the hospitalist to admit the patient. 13:46: I discussed the patient with who agreed to admit the patient observation status. He reads been administered 1 L of fluid will be administered a 2nd L of fluid. Orders Ordered: Discontinued Medications Acetaminophen (Tylenol) 650 mg PO Q6HR PRN PRN Reason: Fever/Mild Pain (1-3) Last Admin: 08/14/19 04:27 Dose: 650 mg Documented by: Admin: 08/13/19 20:39 Dose: 650 mg Documented by: Admin: 08/13/19 15:44 Dose: 650 mg Documented by: SALINA Aspirin (Aspirin Chew) 243 mg PO NOW ONE Stop: 08/13/19 10:34 Last Admin: 08/13/19 11:02 Dose: 243 mg Documented by: BARRIE Aspirin (Aspirin Chew) 81 mg PO DAILY LEONA Bupropion HCl (Wellbutrin Xl) 450 mg PO DAILY LEONA Enoxaparin Sodium (Lovenox) 40 mg SUBCUT DAILY LEONA Gabapentin (Neurontin) 200 mg PO TID LEONA Last Admin: 08/13/19 20:39 Dose: 200 mg Documented by: SALINA Hydroxyzine Pamoate (Vistaril) 25 mg PO Q6H PRN PRN Reason: Anxiety Last Admin: 08/14/19 06:31 Dose: 25 mg Documented by: Admin: 08/13/19 23:48 Dose: 25 mg Documented by: Admin: 08/13/19 15:45 Dose: 25 mg Documented by: SALINA Sodium Chloride (Normal Saline 0.9%) 1,000 mls @ 1,000 mls/hr IV BOLUS ONE Stop: 08/13/19 13:27 Last Infusion: 08/13/19 14:27 Dose: 0 mls/hr Documented by: Admin: 08/13/19 12:33 Dose: 1,000 mls/hr Documented by: JAVIER Sodium Chloride (Normal Saline 0.9%) 1,000 mls @ 1,000 mls/hr IV BOLUS ONE Stop: 08/13/19 14:44 Last Infusion: 08/13/19 14:37 Dose: 1,000 mls/hr Documented by: Admin: 08/13/19 13:48 Dose: 1,000 mls/hr Documented by: BARRIE Ketorolac Tromethamine (Toradol) 30 mg IV NOW ONE Stop: 08/13/19 10:36 Last Admin: 08/13/19 11:02 Dose: 30 mg Documented by: BARRIE Ketorolac Tromethamine (Toradol) 15 mg IV Q6HR PRN PRN Reason: Pain, Moderate (4-6) Stop: 08/18/19 15:18 Last Admin: 08/14/19 06:31 Dose: 15 mg Documented by: Admin: 08/13/19 23:48 Dose: 15 mg Documented by: HIRA Lorazepam (Ativan) 1 mg IV NOW ONE Stop: 08/13/19 11:08 Last Admin: 08/13/19 11:11 Dose: 1 mg Documented by: BARRIE Lorazepam (Ativan) 0.5 mg IV NOW ONE Stop: 08/13/19 13:48 Last Admin: 08/13/19 13:49 Dose: 0.5 mg Documented by: BARRIE Naloxone HCl (Narcan) 0.2 mg IV Q2MIN PRN PRN Reason: Opiate Reversal Nicotine (Nicoderm) 14 mg TOP DAILY LEONA Olanzapine (Zyprexa) 5 mg PO BID LEONA Last Admin: 08/13/19 20:39 Dose: 5 mg Documented by: SALINA Sertraline HCl (Zoloft) 25 mg PO DAILY LEONA Sodium Chloride (Normal Saline 0.9% Flush) 10 ml IV PRN PRN PRN Reason: Flush Sodium Chloride (Normal Saline 0.9% Flush) 10 ml IV BID LEONA Tizanidine HCl (Zanaflex) 4 mg PO TID LEONA Vital Signs Vital signs: Vital Signs - 8 hr 08/13/19 10:10 08/13/19 11:05 08/13/19 12:07 Temperature 97.0 F L Pulse Rate 59 L 52 L 49 L Pulse Rate [Orthostatic Lying] 49 L Pulse Rate [Orthostatic Sitting] 58 L Pulse Rate [Orthostatic Standing] 68 Respiratory Rate 14 18 26 H Blood Pressure 127/57 L Blood Pressure [Left Arm] 102/56 L 114/52 L Blood Pressure [Orthostatic Lying] 114/52 L Blood Pressure [Orthostatic Sitting] 96/56 L Blood Pressure [Orthostatic Standing] 77/57 L Pulse Oximetry 97 97 97 08/13/19 12:35 08/13/19 13:27 Temperature Pulse Rate 54 L 49 L Pulse Rate [Orthostatic Lying] Pulse Rate [Orthostatic Sitting] Pulse Rate [Orthostatic Standing] Respiratory Rate 25 H 14 Blood Pressure Blood Pressure [Left Arm] 106/67 119/66 Blood Pressure [Orthostatic Lying] Blood Pressure [Orthostatic Sitting] Blood Pressure [Orthostatic Standing] Pulse Oximetry 99 MDM - Syncope Medical Records Attestation: I reviewed the patient's medical records. Lab Data Attestation: I reviewed the patient's lab results. Result diagrams: 08/14/19 05:10 08/14/19 05:10 Labs: Lab Results 08/13/19 08/13/19 08/13/19 Range/Units 10:20 10:20 10:20 WBC 6.0 (4.5-11.0) X10^3/uL RBC 4.62 (4.5-5.9) X10^6/uL Hgb 14.7 (13.5-17.5) g/dL Hct 41.6 (41-53) % MCV 90.2 (80-100) fL MCH 31.9 (26-34) PG MCHC 35.3 (30-36) % RDW 12.3 (11.6-14.8) % Plt Count 197 (150-400) X10^3/uL Neut % (Auto) 64.0 (50-75) % Lymph % (Auto) 26.0 (25-40) % [place] % (Auto) 5.4 (3-14) % Eos % (Auto) 4.0 (2-4) % Baso % (Auto) 0.6 (0-2) % Neut # (Auto) 3900 (8523-3180) /uL Lymph # (Auto) 1600 (9340-5670) /uL [place] # (Auto) 300 (0-900) /uL Eos # (Auto) 200 (0-450) /uL Baso # (Auto) 0 (0-100) /uL PT 12.4 (10.1-12.7) SECONDS INR 1.1 (0.9-1.3) APTT 34 D (26.4-36.2) SECONDS Sodium 138 (137-145) mmol/L Potassium 4.3 (3.4-5.1) mmol/L Chloride 102 (98-107) mmol/L Carbon Dioxide 26 (22-32) mmol/L BUN 20 (9-20) mg/dL Creatinine 0.91 (0.66-1.25) mg/dL Estimated GFR > 60.0 (>60) mL/min BUN/Creatinine Ratio 22.0 (6-22) Glucose 107 H (70-100) mg/dL Calcium 10.1 (8.4-10.2) mg/dL Magnesium 2.0 (1.6-2.3) mg/dL Total Bilirubin 0.9 (0.2-1.3) mg/dL AST 22 (17-59) IU/L ALT 21 (<50) IU/L Alkaline Phosphatase 47 (38-126) U/L Total Creatine Kinase 163 (55-170) U/L CK-MB (CK-2) 0.57 (<2.37) ng/mL CK-MB (CK-2) Rel Index 0.3 L (1.5-5.0) % Troponin I < 0.012 (0.01-0.034) ng/mL NT-Pro-B Natriuret Pep (<125) pg/mL Total Protein 8.2 (6.3-8.2) g/dL Albumin 5.0 (3.5-5.0) g/dL Globulin 3.2 (1.7-4.1) g/dL Albumin/Globulin Ratio 1.6 (1.0-2.8) Lipase 68 (23-300) U/L 08/13/19 08/13/19 Range/Units 12:44 12:44 WBC (4.5-11.0) X10^3/uL RBC (4.5-5.9) X10^6/uL Hgb (13.5-17.5) g/dL Hct (41-53) % MCV (80-100) fL MCH (26-34) PG MCHC (30-36) % RDW (11.6-14.8) % Plt Count (150-400) X10^3/uL Neut % (Auto) (50-75) % Lymph % (Auto) (25-40) % [place] % (Auto) (3-14) % Eos % (Auto) (2-4) % Baso % (Auto) (0-2) % Neut # (Auto) (6897-7661) /uL Lymph # (Auto) (7756-0690) /uL [place] # (Auto) (0-900) /uL Eos # (Auto) (0-450) /uL Baso # (Auto) (0-100) /uL PT (10.1-12.7) SECONDS INR (0.9-1.3) APTT (26.4-36.2) SECONDS Sodium (137-145) mmol/L Potassium (3.4-5.1) mmol/L Chloride (98-107) mmol/L Carbon Dioxide (22-32) mmol/L BUN (9-20) mg/dL Creatinine (0.66-1.25) mg/dL Estimated GFR (>60) mL/min BUN/Creatinine Ratio (6-22) Glucose (70-100) mg/dL Calcium (8.4-10.2) mg/dL Magnesium (1.6-2.3) mg/dL Total Bilirubin (0.2-1.3) mg/dL AST (17-59) IU/L ALT (<50) IU/L Alkaline Phosphatase (38-126) U/L Total Creatine Kinase (55-170) U/L CK-MB (CK-2) (<2.37) ng/mL CK-MB (CK-2) Rel Index (1.5-5.0) % Troponin I < 0.012 (0.01-0.034) ng/mL NT-Pro-B Natriuret Pep 191 H (<125) pg/mL Total Protein (6.3-8.2) g/dL Albumin (3.5-5.0) g/dL Globulin (1.7-4.1) g/dL Albumin/Globulin Ratio (1.0-2.8) Lipase (23-300) U/L ECG Data Attestation: I personally reviewed and interpreted this ECG as follows: Interpretation: The patient's EKG obtained at 10:23 a.m. reveals a sinus bradycardia without any acute diagnostic changes. The patient has what appears to be early repolarization with nonspecific ST segment elevations in leads V1 V2 V3 V4. The patient has a QS wave in lead III and AVF suggesting the possibility of an inferior wall NV age indeterminate. T-waves are inverted in lead III. At this time there does not appear to be any acute diagnostic ST segment changes. 12:46: The patient's EKG obtained at 12:23 p.m. reveals a sinus bradycardia with a ventricular rate of 49. His QRS is 133 milliseconds duration which is wide. QTC is 407 with a left axis deviation. The patient has what appears to be early repolarization with an elevated J-point in leads V1 V2 V3 V4 and V5 pure he the patient has a Q-wave in lead III and AVF with T-wave inversions in lead III consistent with an inferior wall NV age indeterminate. The patient's 2nd repeat troponin remains pending. Discharge Plan Departure Patient Disposition: Admitted as Observation Clinical Impression: Orthostatic hypotension Acute post-traumatic headache Qualifiers: Intractability: not intractable Qualified Code(s): G44.319 - Acute post- traumatic headache, not intractable Low back pain Qualifiers: Chronicity: chronic Back pain laterality: unspecified Sciatica presence: without sciatica Qualified Code(s): M54.5 - Low back pain Syncope Qualifiers: Syncope type: unspecified Qualified Code(s): R55 - Syncope and collapse Left ankle sprain Qualifiers: Encounter type: initial encounter Involved ligament of ankle: tibiofibular ligament Qualified Code(s): S93.432A - Sprain of tibiofibular ligament of left ankle, initial encounter Stroke due to embolism of middle cerebral artery Qualifiers: Laterality of affected vessel: right Qualified Code(s): I63.411 - Cerebral infarction due to embolism of right middle cerebral artery Discharge Date/Time: 08/13/19 14:56 Referrals: Bossman Shah [Primary Care Provider] - Admit Date/Time: 08/13/19 14:02 Admit Provider: Ant Childs
--- NOTE | 2019-08-13 10:28 | PC.NURSE ---
Patient reports he fell yesterday and hurt his left ankle. Upon further questioning he reports dizziness was the result of his fall. He then states after more questioning that he passed out. I removed his hat and found an abrasion on his forehead and he reports he actually passed out twice yesterday. The first time he reports he stood up and walked about ten feet before he had a syncopal episode, fell on the carpet, and hit his head and got the rug burn on his left forehead. The second time he reports happened after urinating and that is when he injured his left ankle. Patient has some bruising to left ankle area, is ambulatory. We again continued questioning him about his medical history and he reports a 4 way bypass in 2010 in which his symptoms included a syncopal episode in his yard. Now also reports some minimal chest tightness the last two days. Denies any shortness of breath.
[2019-08-13 10:36] LABS: INR 1.1 (0.9-1.3); Prothrombin Time 12.4 SECONDS (10.1-12.7)
[2019-08-13 10:37] LABS: Alanine Aminotransferase 21 IU/L (<50); Albumin Globulin Ratio 1.6 (1.0-2.8); Alkaline Phosphatase 47 U/L (38-126); Aspartate Aminotransferase 22 IU/L (17-59); Bilirubin Total 0.9 mg/dL (0.2-1.3); Blood Urea Nitrogen 20 mg/dL (9-20); Calcium 10.1 mg/dL (8.4-10.2); Carbon Dioxide 26 mmol/L (22-32); Chloride 102 mmol/L (98-107); Creatine Kinase 163 U/L (55-170); Estimated Glomerular Filt Rate > 60.0 mL/min (>60); Globulin 3.2 g/dL (1.7-4.1); Glucose 107 mg/dL (70-100); HEMOLYSIS < 15 (0-50); Lipase 68 U/L (23-300); Potassium 4.3 mmol/L (3.4-5.1); Sodium 138 mmol/L (137-145); Total Protein 8.2 g/dL (6.3-8.2)
[2019-08-13 10:39] LABS: PTT Partial Thromboplastin Tim 34 SECONDS (26.4-36.2)
[2019-08-13 10:49] LABS: Troponin I < 0.012 ng/mL (0.01-0.034)
[2019-08-13 10:52] LABS: CKMB % Relative Index 0.3 % (1.5-5.0); Creatine Kinase MB 0.57 ng/mL (<2.37)
[2019-08-13] MEDS: KETOROLAC 60 MG/2 ML VIAL 30 MG IV (11:02)
[2019-08-13] MEDS: ASPIRIN 81 MG CHEW TAB 243 MG PO (11:02)
[2019-08-13] MEDS: LORazepam 2 MG/ML INJ 1 MG IV (11:11)
[2019-08-13] MEDS: SODIUM CHLORIDE 0.9% 1,000 ML 1000 ML IV ×2 (12:33→13:48)
[2019-08-13 13:11] LABS: NT-proBNP (BNP-Adult 18+) 191 pg/mL (<125)
[2019-08-13 13:14] LABS: Troponin I < 0.012 ng/mL (0.01-0.034)
[2019-08-13] MEDS: LORazepam 2 MG/ML INJ 0.5 MG IV (13:49)
--- NOTE | 2019-08-13 15:15 | P.HP_ITS ---
History of Present Illness History of Present Illness Date Patient Seen: 08/13/19 Time Patient Seen: 15:16 Date of Onset of Symptoms: 08/12/19 Chief complaint: left ankle twisted yest. 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 Patient reported that he has had 2-3 episodes of syncope over the past couple of days. He is very vague about the timing and was unable to state when these occurred reliably as timing changed multiple times over the course of the interview. He states the 1st episode of syncope occurred when he stood up from his living room couch to go into the kitchen, he became lightheaded, tried putting his head down on his forehead but then blacked out. He thinks that he hit his head at this time. His 2nd fall happened when he stood up to urinate. He is unclear about the 3rd fall. He does state that the 2nd fall he fell and hit the back of his head in the bathroom. He states for the past few weeks he has been dizzy when he stands up every time. He endorses some weight loss and fatigue recently, and the weight loss is unintentional. He denies any dark stools or bright red blood per rectum. He denies any nausea vomiting, abdominal pain, shortness of breath, chest pain, vision changes, fevers, chills. He endorses generalized weakness but no worsening focal weakness other than his chronic left-sided weakness after his stroke. He denies any chest pain or palpitations prior to episodes of syncope. He reports no changes in his blood pressure medication recently. Imaging: L ankle XR negative for fracture, CT head showing R MCA infarction stable from previous, CT C-spine negative for fracture, and CXR unremarkable compared to previous films. Patient History Medical History (Updated 08/13/19 @ 12:25 by Crow Gorman MD) Anxiety (Chronic) Coronary artery disease (Acute) Discitis (Acute) HTN (hypertension) (Chronic) 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) Surgical History (Updated 08/13/19 @ 11:17 by Sandee Lambert RN) S/P CABG x 4 (Acute) Family & Social History Social History: household members family Safety & Behavioral: Feels Safe in Current Yes Environment Been Physically Hurt or No Threatened By a Person Tobacco & Substance use: Tobacco type cigarettes Smoking Status Current every day smoker alcohol intake former alcohol intake frequency 0-2 drinks per day Substance Use Type does not use Meds Home Medications and Allergies Home Medications Medication Instructions Recorded Confirmed Type ibuprofen [Advil] 400 mg PO QID PRN 12/14/17 08/13/19 History lisinopril 20 mg tablet 20 mg PO DAILY 07/15/18 08/13/19 History sertraline 25 mg PO QAM 10/29/18 08/13/19 History olanzapine 5 mg PO BID 12/13/18 08/13/19 History bupropion HCl 450 mg PO QAM 12/23/18 08/13/19 History hydroxyzine HCl 25 mg PO Q6-8H PRN 12/23/18 08/13/19 History tizanidine 4 mg PO TID 12/23/18 08/13/19 History aspirin 81 mg PO DAILY 08/13/19 08/13/19 History clonidine HCl 0.1 - 0.2 mg PO BEDTIME 08/13/19 08/13/19 History gabapentin 200 mg PO TID 08/13/19 08/13/19 History spironolactone 12.5 mg PO DAILY 08/13/19 08/13/19 History Allergies Allergy/AdvReac Type Severity Reaction Status Date / Time No Known Drug Allergies Allergy Verified 08/13/19 10:19 Review of Systems Review of Systems Narrative: All other systems reviewed with the patient and are negative unless otherwise stated. Exam Vital Signs (past 8 hours): - 08/13/19 10:10 08/13/19 11:05 08/13/19 12:07 Temperature 97.0 F L Pulse Rate 59 L 52 L 49 L Pulse Rate [Orthostatic Lying] 49 L Pulse Rate [Orthostatic Sitting] 58 L Pulse Rate [Orthostatic Standing] 68 Respiratory Rate 14 18 26 H Blood Pressure 127/57 L Blood Pressure [Left Arm] 102/56 L 114/52 L Blood Pressure [Orthostatic Lying] 114/52 L Blood Pressure [Orthostatic Sitting] 96/56 L Blood Pressure [Orthostatic Standing] 77/57 L Pulse Oximetry 97 97 97 08/13/19 12:35 08/13/19 13:27 08/13/19 14:28 Temperature Pulse Rate 54 L 49 L 55 L Pulse Rate [Orthostatic Lying] Pulse Rate [Orthostatic Sitting] Pulse Rate [Orthostatic Standing] Respiratory Rate 25 H 14 16 Blood Pressure Blood Pressure [Left Arm] 106/67 119/66 110/55 L Blood Pressure [Orthostatic Lying] Blood Pressure [Orthostatic Sitting] Blood Pressure [Orthostatic Standing] Pulse Oximetry 99 98 Oxygen Delivery Method Room Air Narrative Exam Narrative: GENERAL APPEARANCE: Well developed, well nourished, in no acute distress. SKIN: Inspection of the skin reveals no rashes, ulcerations or petechiae. There is what appears to be old ecchymoses on his left ankle. HEENT: Normocephalic, healed appearing scar just above his left eye. Extraocular muscles are intact, oropharynx is clear and mucous membranes are moist, neck is supple without adenopathy NECK: Supple and symmetric. There was no thyroid enlargement, and no tenderness, or masses were felt. CHEST: Normal AP diameter and normal contour without any kyphoscoliosis. LUNGS: Auscultation of the lungs revealed no wheezes, rhonchi, or rales. CARDIOVASCULAR: There was a regular rate and rhythm without any murmurs, gallops, rubs. Peripheral pulses were 2+ and symmetric. ABDOMEN: Soft and nontender with normal bowel sounds. No ascites was noted. MUSCULOSKELETAL: There was no tenderness or effusions noted. Muscle strength and tone were normal. EXTREMITIES: No cyanosis, clubbing or edema. NEUROLOGIC: Alert and oriented x 3. Slowed cognition with possible cognitive impairment. Slight L facial droop and L weakness compared to R but +5/5 bilater ally. No deficits in sensation to light touch bilaterally. Finger to nose smooth an accurate bilaterally. Heel to colon unremarkable bilaterally. Objective Labs Result Diagrams: 08/13/19 10:20 08/13/19 10:20 Labs: Laboratory Results - last 24 hr 08/13/19 08/13/19 08/13/19 10:20 10:20 10:20 WBC 6.0 RBC 4.62 Hgb 14.7 Hct 41.6 MCV 90.2 MCH 31.9 MCHC 35.3 RDW 12.3 Plt Count 197 Neut % (Auto) 64.0 Lymph % (Auto) 26.0 [place] % (Auto) 5.4 Eos % (Auto) 4.0 Baso % (Auto) 0.6 Neut # (Auto) 3900 Lymph # (Auto) 1600 [place] # (Auto) 300 Eos # (Auto) 200 Baso # (Auto) 0 PT 12.4 INR 1.1 APTT 34 D Sodium 138 Potassium 4.3 Chloride 102 Carbon Dioxide 26 BUN 20 Creatinine 0.91 Estimated GFR > 60.0 BUN/Creatinine Ratio 22.0 Glucose 107 H Calcium 10.1 Magnesium 2.0 Total Bilirubin 0.9 AST 22 ALT 21 Alkaline Phosphatase 47 Total Creatine Kinase 163 CK-MB (CK-2) 0.57 CK-MB (CK-2) Rel Index 0.3 L Troponin I < 0.012 NT-Pro-B Natriuret Pep Total Protein 8.2 Albumin 5.0 Globulin 3.2 Albumin/Globulin Ratio 1.6 Lipase 68 08/13/19 08/13/19 12:44 12:44 WBC RBC Hgb Hct MCV MCH MCHC RDW Plt Count Neut % (Auto) Lymph % (Auto) [place] % (Auto) Eos % (Auto) Baso % (Auto) Neut # (Auto) Lymph # (Auto) [place] # (Auto) Eos # (Auto) Baso # (Auto) PT INR APTT Sodium Potassium Chloride Carbon Dioxide BUN Creatinine Estimated GFR BUN/Creatinine Ratio Glucose Calcium Magnesium Total Bilirubin AST ALT Alkaline Phosphatase Total Creatine Kinase CK-MB (CK-2) CK-MB (CK-2) Rel Index Troponin I < 0.012 NT-Pro-B Natriuret Pep 191 H Total Protein Albumin Globulin Albumin/Globulin Ratio Lipase Assessment & Plan Assessment & Plan narrative: Fidel Erwin is a 54-year-old male with a past medical history of CAD status post CABG in 2010 with mitral valve repair, 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 He is admitted under observation status for further evaluation of syncope. 1. Syncope, likely orthostatic hypotension, present on admission, unclear chronicity -patient presented with multiple episodes of what, based on history, appear to be orthostatic event of hypotension leading to syncope. Suspect this is in the setting of recent reported weight loss and continue doses of his antihypertensive medications. -patient has known coronary artery disease in heart failure with reduced ejection fraction but history is not consistent with a cardiac etiology. He is mildly bradycardic on admission EKG, but these appear to be similar in morphology to prior tracings. -Continue telemetry -given 2 L of IVF in the emergency room, will hold patient's home blood pressure medications and restart slowly. Continue orthostatic vital signs Q shift. -PT and OT eval and treat -dietary consultation -there is no evidence on exam or during history of a cardiac etiology. He had a recent echocardiogram 6 months ago and there is no indication at this time for repeat examination. If he has any events noted on telemetry will repeat echocardiogram. 2. CAD, chronic, stable -continue home aspirin -patient is S/P CABG in 2010 with mitral valve repair per documentation. 3. History of right CVA, present on admission, with residual left-sided weakness -PT/OT evaluation as noted above 4. Chronic heart failure with reduced ejection fraction, present on admission -patient is on an MICHAEL-inhibitor, does not appear to be on beta-lobito likely due to bradycardia that was noted on admission EKG. Will hold lisinopril given significant orthostatic hypotension at this time. Will preferentially start this medication as opposed to clonidine or Aldactone given his reduced ejection fraction. -patient is also currently on spironolactone, will hold as well. 5. Essential Hypertension -currently holding antihypertensives given presenting orthostatic hypotension -restart lisinopril preferentially for systolic blood pressures that are elevated even during orthostatic events. 6. Depression, chronic -continue home sertraline, buproprion 7. Nacissistic and paranoid personality disorders, chronic - continue home onlazapine 8. chronic low back pain after osteomyeltitis - no evidence of active osteomyeltitis - continue pain control with gabapentin, toradol as needed, and tylenol as needed. - will hold tizanadine Code: Full, surrogate decision maker he states is his mother.
--- NOTE | 2019-08-13 15:17 | PC.NURSE ---
Patient brought up from ER, oriented to room and call light. Bed alarm activated, and urinal placed within reach. Patient instructed not to get up without assistance. Telemetry #7 placed and confirmed on.
[2019-08-13] MEDS: ACETAMINOPHEN 325 MG TABLET 650 MG PO ×2 (15:44→20:39)
[2019-08-13] MEDS: hydrOXYzine pamoate 25 MG CAPSULE PO ×2 (15:45→23:48)
[2019-08-13] MEDS: OLANZapine 2.5 MG TABLET 5 MG PO (20:39)
[2019-08-13] MEDS: GABAPENTIN 100 MG CAPSULE 200 MG PO (20:39)
--- NOTE | 2019-08-13 23:37 | PC.NURSE ---
Evening note: Fidel admitted to around 1500, tele placed, rhythm SB, VS stable, LS clear, RA oxygen mid 90's. Denies any cough or SOB in the last few days. Denies being around anyone known to have or been exposed to Covid-19. Reports passing out a couple of times at home. Neuro intact, does have slight left facial droop which he said is residual from his a CVA. Appears somewhat drowsy, words slurred which could be from Ativan given in E.R. He is c/o left ankle pain, ankle observed to have small area of dull yellow bruising to medial ankle & top of foot. Medicated with Tylenol, Vistaril, gabapentin, able to doze off intermittently. Reports neck pain, warm compress applied for comfort. He asked me for something for anxiety--like Lorazepam or Valium, and I reported this request to Dr Childs. No order given, Dr Childs said he was hesitant to give him anything like that. Pt asked me later tonight for Nicotine patch, I notified Livier JOY of patient request, order for 14 mg patch obtained. Full patient report given to Lauren ORELLANA.
[2019-08-13] MEDS: KETOROLAC 15 MG/ML VIAL IV (23:48)
[2019-08-14] VITALS: BP 136/77; BP 139/53; BP 142/69; PULSE 53; PULSE 61; PULSE 63
[2019-08-14 04:03] VITALS: BP 140/63; PULSE 101; RESP 14; TEMP 36.3; O2SAT 99
[2019-08-14] MEDS: ACETAMINOPHEN 325 MG TABLET 650 MG PO (04:27)
[2019-08-14 05:30] LABS: Add Manual Diff / Slide Review NO; Basophils Absolute Auto 0 /uL (0-100); Basophils Percent Auto 0.9 % (0-2); Eosinophils Absolute Auto 300 /uL (0-450); Eosinophils Percent Auto 4.9 % (2-4); Hematocrit 41.3 % (41-53); Hemoglobin 14.3 g/dL (13.5-17.5); Lymphocytes Absolute Auto 1800 /uL (1100-4500); Lymphocytes Percent Auto 33.8 % (25-40); Mean Corpuscular HGB Conc 34.7 % (30-36); Mean Corpuscular Hemoglobin 31.3 PG (26-34); Mean Corpuscular Volume 90.1 fL (80-100); Monocytes Absolute Auto 400 /uL (0-900); Monocytes Percent Auto 7.4 % (3-14); Neutrophils Absolute Auto 2800 /uL (1500-7000); Platelet Count 156 X10^3/uL (150-400); Red Blood Cell Count 4.58 X10^6/uL (4.5-5.9); Red Cell Distribution Width 12.4 % (11.6-14.8); White Blood Cell Count 5.2 X10^3/uL (4.5-11.0)
[2019-08-14 05:40] LABS: BUN Creatinine Ratio 22.8 (6-22); Blood Urea Nitrogen 21 mg/dL (9-20); Calcium 9.4 mg/dL (8.4-10.2); Carbon Dioxide 26 mmol/L (22-32); Chloride 107 mmol/L (98-107); Estimated Glomerular Filt Rate > 60.0 mL/min (>60); Glucose 97 mg/dL (70-100); HEMOLYSIS < 15 (0-50); Magnesium 2.1 mg/dL (1.6-2.3); Potassium 4.1 mmol/L (3.4-5.1); Sodium 141 mmol/L (137-145)
[2019-08-14] MEDS: KETOROLAC 15 MG/ML VIAL IV (06:31)
[2019-08-14] MEDS: hydrOXYzine pamoate 25 MG CAPSULE PO (06:31)
--- NOTE | 2019-08-14 07:22 | PC.NURSE ---
AMA departure: At bedside shift report patient found up getting dressed with tele monitor removed- when this headline writer asked why patient stated because I'm leaving, I'm going home, I'm not going to stay here any longer. This headline writer attempted to tribe patient to wait until MD sees him (to go over POC/further evaluation) but patient declined to wait. Dr Childs informed of the same. Patient denied dizziness or lightheadedness when on his feet. IV dc'd intact. AMA paperwork signed by patient and placed in chart. Patient insisted on ambulating out of hospital, so this headline writer accompanied him to the exit. He walked from his room to exit (unaided) without incident He stated he was walking home. All personal belongings sent with patient at time of discharge.
--- NOTE | 2019-08-14 07:49 | CM.DANOTE ---
Brief Note Patient is a 54 year old male who was admitted on 08/13/19 for sycope and left early this morning after signing AMA paperwork prior to start of SW shift. Per RN, pt ambulated independently to the entrance of the hospital and transported himself home. Plan: Patient left AMA early this morning and therefore no DCP needs at this time. ROLF Nuñez
--- NOTE | 2019-08-14 16:09 | P.DS_ITS ---
History of Present Illness History of Present Illness Chief complaint: left ankle twisted yest. 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 Patient reported that he has had 2-3 episodes of syncope over the past couple of days. He is very vague about the timing and was unable to state when these occurred reliably as timing changed multiple times over the course of the interview. He states the 1st episode of syncope occurred when he stood up from his living room couch to go into the kitchen, he became lightheaded, tried putting his head down on his forehead but then blacked out. He thinks that he hit his head at this time. His 2nd fall happened when he stood up to urinate. He is unclear about the 3rd fall. He does state that the 2nd fall he fell and hit the back of his head in the bathroom. He states for the past few weeks he has been dizzy when he stands up every time. He endorses some weight loss and fatigue recently, and the weight loss is unintentional. He denies any dark stools or bright red blood per rectum. He denies any nausea vomiting, abdominal pain, shortness of breath, chest pain, vision changes, fevers, chills. He endorses generalized weakness but no worsening focal weakness other than his chronic left-sided weakness after his stroke. He denies any chest pain or palpitations prior to episodes of syncope. He reports no changes in his blood pressure medication recently. Imaging: L ankle XR negative for fracture, CT head showing R MCA infarction stable from previous, CT C-spine negative for fracture, and CXR unremarkable compared to previous films. Discharge Providers Provider Date of admission: 08/13/19 14:02 Discharge Date: 08/14/19 Primary care physician: Bossman Shah Consults: 08/13/19 15:19 Consult to Dietitian, Adult Routine Comment: Reason For Exam: reported weight loss Consult to Discharge Planning Routine Comment: Consult to Occupational Therapy Evaluate & Treat Comment: Physician Instructions: Evaluate and treat Consult to Physical Therapy Evaluate & Treat Comment: Physician Instructions: Evaluate and Treat 08/13/19 16:06 Consult to Dietitian, Adult Routine Comment: decreased appetite, not sure why Reason For Exam: reports lost at least 10 pounds in last 3 months Discharge provider: Ant Childs DO Summary Hospital Course Discharge Diagnosis: Please see below. 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 He was admitted under observation status for further evaluation of syncope and orthostatic hypotension. His BP medications were held and his orthostatic did improve. He left AMA the morning after admission before he could be seen and evaluated prior to likely discharge. 1. Syncope, likely orthostatic hypotension, present on admission, unclear chronicity -patient presented with multiple episodes of what, based on history, appear to be orthostatic event of hypotension leading to syncope. Suspect this is in the setting of recent reported weight loss and continue doses of his antihypertensiv e medications. -patient has known coronary artery disease in heart failure with reduced ejection fraction but history is not consistent with a cardiac etiology. He is mildly bradycardic on admission EKG, but these appear to be similar in morphology to prior tracings. -Telemetry revealed no Events. -given 2 L of IVF in the emergency room, held patient's home blood pressure medications and orthostatics did improve. -PT and OT were unable to evaluate patient as he left AMA. -there is no evidence on exam or during history of a cardiac etiology. He had a recent echocardiogram 6 months ago and there was no indication for repeat examination. 2. CAD, chronic, stable -continue home aspirin -patient is S/P CABG in 2010 with mitral valve repair per documentation. 3. History of right CVA, present on admission, with residual left-sided weakness 4. Chronic heart failure with reduced ejection fraction, present on admission -patient is on an MICHAEL-inhibitor, does not appear to be on beta-lobito likely due to bradycardia that was noted on admission EKG. Held lisinopril given significant orthostatic hypotension. Recommend preferentially restarting lisinopril first over other BP medications. -patient is also currently on spironolactone, will hold as well. 5. Essential Hypertension -currently holding antihypertensives given presenting orthostatic hypotension -restart lisinopril preferentially for systolic blood pressures that are elevated even during orthostatic events. 6. Depression, chronic -continue home sertraline, buproprion 7. Nacissistic and paranoid personality disorders, chronic - continue home onlazapine 8. chronic low back pain after osteomyeltitis - no evidence of active osteomyeltitis - continue pain control with gabapentin, toradol as needed, and tylenol as neede d. - will hold tizanadine Dispo: left AMA, prior to being evaluated the morning after discharge. Exam Vital Signs (past 8 hours): Oxygen Delivery Method Room Air Oxygen Flow Rate 0 Narrative Exam Narrative: patient left AMA prior to performing physical exam. Objective Labs Result Diagrams: 08/14/19 05:10 08/14/19 05:10 Labs: Laboratory Results - last 24 hr 08/14/19 08/14/19 05:10 05:10 WBC 5.2 RBC 4.58 Hgb 14.3 Hct 41.3 MCV 90.1 MCH 31.3 MCHC 34.7 RDW 12.4 Plt Count 156 Neut % (Auto) 53.0 Lymph % (Auto) 33.8 [place] % (Auto) 7.4 Eos % (Auto) 4.9 H Baso % (Auto) 0.9 Neut # (Auto) 2800 Lymph # (Auto) 1800 [place] # (Auto) 400 Eos # (Auto) 300 Baso # (Auto) 0 Sodium 141 Potassium 4.1 Chloride 107 Carbon Dioxide 26 BUN 21 H Creatinine 0.92 Estimated GFR > 60.0 BUN/Creatinine Ratio 22.8 H Glucose 97 Calcium 9.4 Magnesium 2.1 Discharge Plan Discharge Plan Patient Disposition: Home Discharge comment: left AMA at 0715, MD Childs aware Discharge orders & Medications Prescriptions: Continued sertraline 50 mg Tablet 25 mg PO QAM RF: 0 aspirin 81 mg Tablet,Chewable 81 mg PO DAILY RF: 0 clonidine HCl 0.1 mg tablet 0.1 - 0.2 mg PO BEDTIME RF: 0 spironolactone 25 mg tablet 12.5 mg PO DAILY RF: 0 gabapentin 100 mg capsule 200 mg PO TID RF: 0 ibuprofen [Advil] 200 mg Tablet 400 mg PO QID PRN (Reason: Pain (Scale Score 1-3)) RF: 0 olanzapine 5 mg Tablet 5 mg PO BID RF: 0 tizanidine 4 mg tablet 4 mg PO TID RF: 0 hydroxyzine HCl 25 mg tablet 25 mg PO Q6-8H PRN (Reason: Anxiety) RF: 0 bupropion HCl 150 mg tablet extended release 24 hr 450 mg PO QAM RF: 0 lisinopril 20 mg tablet 20 mg PO DAILY RF: 0 Follow up/Referrals: Bossman Shah [Primary Care Provider] - Visit Report/Discharge Packet Visit Report Forms: Patient Portal/API, Stroke Signs & Symptoms Discharge Data Primary Care Provider: Bossman Shah Attending Provider: Ant Childs Admit Date/Time: 08/13/19 14:02 Discharges patient from system. Discharge Date/Time: 08/14/19 07:29 Quality VTE Deep Vein Thrombosis/Pulmonary Embolism Present on Admission: No
== END 2019-08-14 07:29 | disposition home or self-care (01) ==
LOC: ED 13:59 → AC 14:02
PROVIDERS: Admitting Provider Internal Medicine; Emergency Provider Emergency Medicine; PCP Internal Medicine; Referring Provider Emergency Medicine; Visit Provider Internal Medicine
DX: R55 Syncope and collapse (principal); W18.00XA Striking against unspecified object with subsequent fall, initial encounter; S93.432A Sprain of tibiofibular ligament of left ankle, initial encounter; Z95.1 Presence of aortocoronary bypass graft; F17.210 Nicotine dependence, cigarettes, uncomplicated; F41.9 Anxiety disorder, unspecified; I25.10 Atherosclerotic heart disease of native coronary artery without angina pectoris; M54.5 Low back pain; G44.319 Acute post-traumatic headache, not intractable; I69.392 Facial weakness following cerebral infarction; I69.354 Hemiplegia and hemiparesis following cerebral infarction affecting left non-dominant side; I50.9 Heart failure, unspecified; F60.81 Narcissistic personality disorder; F60.0 Paranoid personality disorder; I11.0 Hypertensive heart disease with heart failure
CPT/HCPCS: 36415; 70450; 71045; 72125; 73610; 80048; 80053; 82550; 82553; 83690; 83735; 83880; 84484; 85025; 85610; 85730; 93005; 93010; 96361; 96374; 96375; 96376; 99284; G0378; J1885; J2060

== ENCOUNTER 2019-09-24 19:18 | Emergency (ER) | payer OTHER, SELFPAY ==
[2019-08-13 15:54] VITALS: BMI 26.6
[2019-09-24 19:37] VITALS: BP 145/66; PULSE 73; RESP 18; TEMP 36.7; O2SAT 98; BMI 26.6
--- NOTE | 2019-09-24 19:45 | DI.RAD.S_ITS ---
PROCEDURE: XR LUMBAR SPINE 2-3V INDICATIONS: fall with right hip pain TECHNIQUE: 3 views of the lumbar spine were acquired. COMPARISON: [facility], MR, MR LUMBAR SPINE WO CON, 06/16/2019, 14:21. [facility], CR, XR LUMBAR SPINE 2-3V, 11/27/2017, 10:30. FINDINGS: Bones: No [id number] vertebrae are present. There is normal bony alignment. No acute vertebral body compression fractures. Stable appearance of anterior compression fracture at L1. Moderate multilevel lumbar spondylitic changes and severe lower lumbar facet arthrosis. No suspicious bony lesions. Soft tissues: Overlying bowel gas pattern is normal. No suspicious soft tissue calcifications. IMPRESSION: Lumbar spine without acute fracture or dislocation. Multilevel lumbar spondylosis. Dictated by: Calixto Melgoza M.D. on 09/24/2019 at 20:33 Approved by: Calixto Melgoza M.D. on 09/24/2019 at 20:35
--- NOTE | 2019-09-24 19:45 | DI.RAD.S_ITS ---
PROCEDURE: XR HIP W PEL IF DONE RT 2V INDICATIONS: fall with right hip pain TECHNIQUE: AP pelvis with lateral view(s) of the right hip(s). COMPARISON: None. FINDINGS: Bones: No acute fractures or dislocations. Degenerative changes of the bilateral hips. There is loss of normal sphericity of the supralateral femoral head neck junction bilaterally. 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 Lower lumbar spondylosis. Pelvic ring appears intact. No suspicious bony lesions. Soft tissues: The visualized bowel gas pattern is normal. No suspicious soft tissue calcifications. IMPRESSION: Right hip and pelvis without acute fracture or dislocation. 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 Dictated by: Calixto Melgoza M.D. on 09/24/2019 at 20:31 Approved by: Calixto Melgoza M.D. on 09/24/2019 at 20:32
--- NOTE | 2019-09-24 20:11 | ED.LOWEXIN ---
HPI - Extremity Injury (Lower) General Chief Complaint: Extremity Injury, Lower Stated Complaint: fall on Thursday, injured his right leg, pain Time Seen by Provider: 09/24/19 19:33 Source: patient Mode of arrival: Ambulatory Limitations: no limitations History of Present Illness HPI Narrative: 54-year-old male daily smoker with history chronic pain and orthostatic hypotension presents with a chief complaint of right hip pain and some lumbar pain after fall yesterday. He states that he was standing on a chair attempting to change a light bulb when he lost his balance while reaching and landed on his right buttock. He denies any head or neck pain. He has full recall. He denies any loss of consciousness, nausea, vomiting or focal neurologic findings such as numbness, tingling weakness. His right hip hurts worse with ambulation or palpation. He denies any numbness or tingling in his bladder or groin region. He denies loss of control of bowel or bladder nor foot drop. MD complaint: hip injury Onset (ago): day(s) Type of Injury: blunt Place: home Severity: mild Relieving factors: rest Exacerbating factors: weight bearing Context: fall and direct blow Associated symptoms: ambulatory Other symptoms: none Treatments prior to arrival: NSAIDS Related Data Home Medications Medication Instructions Recorded Confirmed ibuprofen [Advil] 400 mg PO QID PRN 12/14/17 08/13/19 lisinopril 20 mg tablet 20 mg PO DAILY 07/15/18 08/13/19 sertraline 25 mg PO QAM 10/29/18 08/13/19 olanzapine 5 mg PO BID 12/13/18 08/13/19 bupropion HCl 450 mg PO QAM 12/23/18 08/13/19 hydroxyzine HCl 25 mg PO Q6-8H PRN 12/23/18 08/13/19 tizanidine 4 mg PO TID 12/23/18 08/13/19 aspirin 81 mg PO DAILY 08/13/19 08/13/19 clonidine HCl 0.1 - 0.2 mg PO BEDTIME 08/13/19 08/13/19 gabapentin 200 mg PO TID 08/13/19 08/13/19 spironolactone 12.5 mg PO DAILY 08/13/19 08/13/19 Previous Rx's Medication Instructions Recorded ketorolac 10 mg PO Q6H PRN #14 tab 09/24/19 lidocaine [Lidoderm] 1 patch TOP DAILY #15 each 09/24/19 Allergies Allergy/AdvReac Type Severity Reaction Status Date / Time No Known Drug Allergies Allergy Verified 09/24/19 19:37 Review of Systems Constitutional Constitutional: Denies chills, Denies fatigue, Denies fever(s), Denies frequent falls, Denies lethargy and Denies weakness Eyes Eyes: Denies change in vision, Denies eye discharge, Denies irritation and Denies loss of vision ENT Ears, Nose, Mouth, and Throat: Denies change in voice, Denies dizziness, Denies neck pain, Denies sore throat and Denies throat swelling Cardiovascular Cardiovascular: Denies chest pain, Denies irregular heart rhythm, Denies lightheadedness, Denies palpitations, Denies dyspnea, Denies dyspnea on exertion and Denies orthopnea Respiratory Respiratory: Denies cough, Denies dyspnea, Denies dyspnea on exertion and Denies wheezing Gastrointestinal Gastrointestinal: Denies abdominal pain, Denies change in bowel habits, Denies diarrhea, Denies nausea and Denies vomiting Musculoskeletal Musculoskeletal: Reports back pain, Reports arthralgias, Denies neck pain and Denies numbness Integumentary/Breasts Skin/Breast: Denies pruritus, Denies erythema, Denies rash and Denies wounds Neurologic Neurologic: Denies behavioral changes, Denies confusion, Denies dizziness, Denies frequent falls, Denies loss of vision, Denies numbness and Denies weakness Psychiatric Psychiatric: Denies anxiety, Denies behavioral changes, Denies confusion, Denies depression, Denies homicidal ideation and Denies suicidal ideation Endocrine Endocrine: Denies fatigue, Denies flushing and Denies palpitations Hematologic/Lymphatic Hematologic/Lymphatic: Denies easy bruising Allergic/Immunologic Allergic/Immunologic: Denies urticaria, Denies throat swelling and Denies wheezing Patient History Medical History Anxiety (Chronic) Coronary artery disease (Acute) Discitis (Acute) HTN (hypertension) (Chronic) 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 Well-nourished, well-developed patient, in mild distress. HEAD: Atraumatic. Normocephalic. EYES: Pupils equal round and reactive. Extraocular motions intact. No scleral icterus. No injection or drainage. ENT: Nose without bleeding, purulent drainage. Throat without erythema, tonsillar hypertrophy or exudate. Airway patent. NECK: Trachea midline. Non tender CARDIOVASCULAR: Regular rate and rhythm without murmurs, gallops, or rubs. RESPIRATORY: Clear to auscultation. Breath sounds equal bilaterally. No wheezes, rales, or rhonchi. GASTROINTESTINAL: Abdomen soft, non-tender, nondistended. EXTREMITIES: Right hip tender to palpation. No shortening or rotation. No saddle anesthesia. BACK: slurry tank tender but free of any obvious external abnormalities. Patient exam notes decreased range of motion and muscle spasm, but no CVA tenderness, or vertebral point tenderness. There are no symptoms of cauda equina such as saddle anesthesia, and decreased reflexes, decreased sensation or strength. NEURO: AOx3. SKIN: No rash or erythema of visible areas Initial Vital Signs Initial Vital Signs: Vital Signs Temperature 98.1 F 09/24/19 19:37 Pulse Rate 73 09/24/19 19:37 Respiratory Rate 18 09/24/19 19:37 Blood Pressure 145/66 H 09/24/19 19:37 Pulse Oximetry 98 09/24/19 19:37 Course Orders Ordered: ED Orders 09/24/19 19:45 XR hip w pel if done RT 2V Stat XR lumbar spine 2-3V Stat Discontinued Medications Ketorolac Tromethamine (Toradol) 60 mg IM NOW ONE Stop: 09/24/19 20:47 Last Admin: 09/24/19 21:02 Dose: 60 mg Documented by: KELLY Vital Signs Vital signs: Vital Signs - 8 hr 09/24/19 21:11 09/24/19 21:20 Pulse Rate 64 68 Respiratory Rate 14 14 Blood Pressure 165/81 H Blood Pressure [Right Arm] 165/71 H Pulse Oximetry 99 99 MDM - Extremity Injury (Lower) Imaging Data Lumbar Xray: Radiologist's Impression: [id number] [place] [address] XRay Report Signed Patient: Fidel Erwin EMR#: [id number] : 1965Acct:[id number] Age/Sex: 54 / MDate of Service: 09/24/19 Loc: ED Accession Number: [id number] Procedure: XR lumbar spine 2-3V Ordering Provider: Spencer Wolf D.O. PROCEDURE: XR LUMBAR SPINE 2-3V INDICATIONS: fall with right hip pain TECHNIQUE: 3 views of the lumbar spine were acquired. COMPARISON: [facility], MR, MR LUMBAR SPINE WO CON, 06/16/2019, 14:21. [facility], CR, XR LUMBAR SPINE 2-3V, 11/27/2017, 10:30. FINDINGS: Bones: No [id number] vertebrae are present. There is normal bony alignment. No acute vertebral body compression fractures. Stable appearance of anterior compression fracture at L1. Moderate multilevel lumbar spondylitic changes and severe lower lumbar facet arthrosis. No suspicious bony lesions. Soft tissues: Overlying bowel gas pattern is normal. No suspicious soft tissue calcifications. IMPRESSION: Lumbar spine without acute fracture or dislocation. Multilevel lumbar spondylosis. Dictated by: Calixto Melgoza M.D. on 09/24/2019 at 20:33 Approved by: Calixto Melgoza M.D. on 09/24/2019 at 20:35 Extremity x-ray #1: Radiologist's Impression: [facility] DATE TYPE STATUS REF RANGE/AUTHOR Hx 09/24/19 19:45 Calixto Melgoza 09/24/19 19:45 Calixto Melgoza 08/13/19 14:02 08/13/19 10:14 [place],Pavan 08/13/19 10:14 Juanito,Pavan 08/13/19 10:13 [place],Pavan 08/13/19 10:13 [place],Pavan 06/16/19 00:00 Kvng Lara 01/19/19 00:00 Shady Cadena 12/28/18 09:41 Juanito,Pavan 12/23/18 10:01 Juanito,Pavan 12/23/18 08:10 Thierry Enamorado 12/23/18 00:00 Bucky Tracy 12/10/18 20:33 Juan FJazzy 11/07/18 13:44 Joseline Hernández 10/31/18 12:57 [place],Pavan 10/29/18 10:29 Cheryl,Joseeyu 10/29/18 10:28 Cheryl,Fieyu 09/21/18 12:27 [place],Pavan 09/21/18 11:35 Juanito,Pavan 09/21/18 11:23 06/11/18 00:00 Zheng,Kathleen 01/22/18 10:03 Aden Wade 01/10/18 21:12 Gris Hassan 01/10/18 19:49 Gris Hassan 12/23/17 08:28 [place],Pavan 12/23/17 06:47 FeiThierry 11/27/17 10:52 Trent Casanova 10/26/17 07:59 Trent Casanova Fidel Erwin 54, M105/21/1964 [facility] R02 167.64cm 74.843kg BMI: 26.6kg/m? Extremity Injury, Lower Search Chart Patient Discharged from Clinic ONSET Today 19:37 Fidel Erwin 54 M 1965 [place] [address] XRay Report Signed Patient: Fidel Erwin EMR#: [id number] : 1965Acct:[id number] Age/Sex: 54 / MDate of Service: 09/24/19 Loc: ED Accession Number: [id number] Procedure: XR hip w pel if done RT 2V Ordering Provider: Spencer Wolf D.O. PROCEDURE: XR HIP W PEL IF DONE RT 2V INDICATIONS: fall with right hip pain TECHNIQUE: AP pelvis with lateral view(s) of the right hip(s). COMPARISON: None. FINDINGS: Bones: No acute fractures or dislocations. Degenerative changes of the bilateral hips. There is loss of normal sphericity of the supralateral femoral head neck junction bilaterally. 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 Lower lumbar spondylosis. Pelvic ring appears intact. No suspicious bony lesions. Soft tissues: The visualized bowel gas pattern is normal. No suspicious soft tissue calcifications. IMPRESSION: Right hip and pelvis without acute fracture or dislocation. 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 Dictated by: Calixto Melgoza M.D. on 09/24/2019 at 20:31 Approved by: Calixto Melgoza M.D. on 09/24/2019 at 20:32 Discharge Plan Departure Patient Disposition: Home Clinical Impression: Lumbar back pain Contusion of hip, right Qualifiers: Encounter type: initial encounter Qualified Code(s): S70.01XA - Contusion of right hip, initial encounter Discharge Date/Time: 09/24/19 21:22 Activity Restrictions/Additional Instructions: *You have been diagnosed with [fall with back and hip pain. X-rays are negative for fracture or dislocation] *What to do: *Take medications as directed: Prescription electronically transmitted to [facility] at your request *Follow up with your primary care provider in 2-3 days, call for an appointment. Let them know you were seen in the Emergency Department and that we ask that you be seen in follow up *Return to ER if you should have any new, worsening or concerning symptoms Prescriptions: New ketorolac 10 mg tablet 10 mg PO Q6H PRN (Reason: pain) Qty: 14 RF: 0 lidocaine [Lidoderm] 5 % adhesive patch,medicated 1 patch TOP DAILY Qty: 15 RF: 0 No Action sertraline 50 mg Tablet 25 mg PO QAM RF: 0 aspirin 81 mg Tablet,Chewable 81 mg PO DAILY RF: 0 clonidine HCl 0.1 mg tablet 0.1 - 0.2 mg PO BEDTIME RF: 0 spironolactone 25 mg tablet 12.5 mg PO DAILY RF: 0 gabapentin 100 mg capsule 200 mg PO TID RF: 0 ibuprofen [Advil] 200 mg Tablet 400 mg PO QID PRN (Reason: Pain (Scale Score 1-3)) RF: 0 olanzapine 5 mg Tablet 5 mg PO BID RF: 0 tizanidine 4 mg tablet 4 mg PO TID RF: 0 hydroxyzine HCl 25 mg tablet 25 mg PO Q6-8H PRN (Reason: Anxiety) RF: 0 bupropion HCl 150 mg tablet extended release 24 hr 450 mg PO QAM RF: 0 lisinopril 20 mg tablet 20 mg PO DAILY RF: 0 Referrals: Bossman Shah [Primary Care Provider] -
[2019-09-24] MEDS: KETOROLAC 60 MG/2 ML VIAL IM (21:02)
[2019-09-24 21:11] VITALS: BP 165/71; PULSE 64; RESP 14; O2SAT 99
[2019-09-24 21:20] VITALS: BP 165/81; PULSE 68; RESP 14; O2SAT 99
== END 2019-09-24 21:22 | disposition home or self-care (01) ==
PROVIDERS: Emergency Provider Emergency Medicine; PCP Internal Medicine
DX: S70.01XA Contusion of right hip, initial encounter (principal); M54.5 Low back pain; W08.XXXA Fall from other furniture, initial encounter
CPT/HCPCS: 72100; 73502; 96372; 99283; J1885

== ENCOUNTER 2019-09-30 11:27 | Emergency (ER) | payer OTHER, SELFPAY ==
[2019-08-13 15:54] VITALS: BMI 26.6
--- NOTE | 2019-09-30 11:33 | DI.RAD.S_ITS ---
PROCEDURE: XR CHEST 1V INDICATIONS: chest pain TECHNIQUE: One view of the chest was acquired. COMPARISON: [facility], CR, XR CHEST 1V, 08/13/2019, 10:24. FINDINGS: Surgical changes and devices: Status post CABG procedure Lungs and pleura: Lungs are clear of acute opacities. Scarring involving the left midlung redemonstrated. Trace left pleural effusion. No pneumothorax. Mediastinum: Mediastinal contours appear normal. Heart size is normal. Bones and chest wall: No suspicious bony lesions. Overlying soft tissues appear unremarkable. IMPRESSION: Trace left-sided pleural effusion. Dictated by: Gris Hassan MD, PhD on 09/30/2019 at 12:17 Approved by: Gris Hassan MD, PhD on 09/30/2019 at 12:18
[2019-09-30 11:37] VITALS: BP 187/92; PULSE 75; RESP 16; TEMP 37.1; O2SAT 97; BMI 26.6
--- NOTE | 2019-09-30 11:46 | ED_ITS ---
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 He states that occurs when he is taking a deep breath, chest pain is nonradiating. Also complains of chills last night. He took ibuprofen help and did not help yesterday. He has not had anything for pain since last night. He does have history of chronic pain for which he has seen pain management. He states he had some nausea last night with no vomiting. He denies any palpitations, lightheadedness or dizziness but does complain of headache. Of note the patient was seen here on 09/24/2019 for chief complaint of low back and hip pain, and had negative x-rays at that point time. He has not followed up with primary care provider. He states that his chest pain gets worse with deep breathing or movement. He denies any productive cough. The patient appears to have difficulty answering questions, initially states he is taking his medications as instructed, then states he has not taken any today Related Data Home Medications Medication Instructions Recorded Confirmed ibuprofen [Advil] 400 mg PO QID PRN 12/14/17 08/13/19 lisinopril 20 mg tablet 20 mg PO DAILY 07/15/18 08/13/19 sertraline 25 mg PO QAM 10/29/18 08/13/19 olanzapine 5 mg PO BID 12/13/18 08/13/19 bupropion HCl 450 mg PO QAM 12/23/18 08/13/19 hydroxyzine HCl 25 mg PO Q6-8H PRN 12/23/18 08/13/19 tizanidine 4 mg PO TID 12/23/18 08/13/19 aspirin 81 mg PO DAILY 08/13/19 08/13/19 clonidine HCl 0.1 - 0.2 mg PO BEDTIME 08/13/19 08/13/19 gabapentin 200 mg PO TID 08/13/19 08/13/19 spironolactone 12.5 mg PO DAILY 08/13/19 08/13/19 Previous Rx's Medication Instructions Recorded ketorolac 10 mg PO Q6H PRN #14 tab 09/24/19 lidocaine [Lidoderm] 1 patch TOP DAILY #15 each 09/24/19 furosemide 20 mg PO DAILY #14 tab 09/30/19 Allergies Allergy/AdvReac Type Severity Reaction Status Date / Time No Known Drug Allergies Allergy Verified 09/24/19 19:37 Review of Systems <JACLYN Barragan - Last Filed: 09/30/19 18:52> Review of Systems Narrative: GENERAL: Denies chills, fatigue, malaise, fever, sweats. HEENT: Denies sinus pain, ear pain, sore throat, difficulty swallowing, dizziness. RESPIRATORY: See HPI CARDIOVASCULAR: See HPI GASTROINTESTINAL: Denies nausea, vomiting, abdominal pain, diarrhea, constipation, melena. : Denies dysuria, frequency, incontinence, hematuria, urinary retention. MUSCULOSKELETAL: See HPI SKIN: Denies rash, skin lesions, or other NEUROLOGIC: Denies weakness, headache, numbness, change in speech, confusion, seizures, incoordination. PSYCHIATRIC: No concerning psychosocial issues. 12 point review of systems is negative except for those stated above Patient History <JACLYN Barragan - Last Filed: 09/30/19 18:52> Medical History (Updated 09/30/19 @ 16:59 by JACLYN Barragan) Anxiety (Chronic) Coronary artery disease (Acute) Discitis (Acute) HTN (hypertension) (Chronic) 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) Surgical History S/P CABG x 4 (Acute) Social History household members: family and other Smoking Status: Current every day smoker alcohol intake: former Smoking Status: Current every day smoker alcohol intake frequency: 0-2 drinks per day Substance Use Type: does not use Exam <JACLYN Barragan - Last Filed: 09/30/19 18:52> Narrative Exam Narrative: GENERAL: Unkempt male lying on stretcher in no acute distress HEAD: Atraumatic. Normocephalic. No temporal or scalp tenderness. EYES: Pupils equal round and reactive. Extraocular motions intact. No scleral icterus. No injection or drainage. ENT: Nose without bleeding, purulent drainage or septal hematoma. Throat without erythema, tonsillar hypertrophy or exudate. Uvula midline. Airway patent. NECK: Trachea midline. No JVD or lymphadenopathy. Supple, nontender, no meningeal signs. CARDIOVASCULAR: Regular rate and rhythm RESPIRATORY: Clear to auscultation. Breath sounds equal bilaterally. No wheezes, rales, or rhonchi. No cough. No increased respiratory effort. No accessory muscle use. GASTROINTESTINAL: Abdomen soft, non-tender, nondistended. No hepato- splenomegaly, or palpable masses. No guarding. EXTREMITIES: No clubbing, cyanosis, or edema. No joint tenderness, effusion, or edema noted. BACK: Nontender without deformity or crepitance. No flank tenderness. NEURO: AOx3. SKIN: No rash or erythema on visible skin. No erythema rash laceration or abrasion noted on lower back. Midline sternal incision scar is well-healed, well-approximated. Initial Vital Signs Initial Vital Signs: Vital Signs Temperature 98.7 F 09/30/19 11:37 Pulse Rate 75 09/30/19 11:37 Respiratory Rate 16 09/30/19 11:37 Blood Pressure 187/92 H 09/30/19 11:37 Pulse Oximetry 97 09/30/19 11:37 <Crow Gorman MD - Last Filed: 10/01/19 07:15> Initial Vital Signs Initial Vital Signs: Vital Signs Temperature 98.7 F 09/30/19 11:37 Pulse Rate 75 09/30/19 11:37 Respiratory Rate 16 09/30/19 11:37 Blood Pressure 187/92 H 09/30/19 11:37 Pulse Oximetry 97 09/30/19 11:37 Course <JACLYN Barragan - Last Filed: 09/30/19 18:52> Orders Ordered: Discontinued Medications Acetaminophen (Tylenol) 650 mg PO NOW ONE Stop: 09/30/19 12:43 Last Admin: 09/30/19 12:59 Dose: 650 mg Documented by: DEXTER Clonidine HCl (Catapres) 0.1 mg PO NOW ONE Stop: 09/30/19 14:50 Last Admin: 09/30/19 15:17 Dose: 0.1 mg Documented by: DEXTER Furosemide (Lasix) 10 mg IV NOW ONE Stop: 09/30/19 12:43 Last Admin: 09/30/19 13:01 Dose: Not Given Documented by: DEXTER Furosemide (Lasix) 10 mg IV NOW ONE Stop: 09/30/19 13:01 Last Admin: 09/30/19 13:01 Dose: 10 mg Documented by: DEXTER Hydroxyzine Pamoate (Vistaril) 50 mg PO NOW ONE Stop: 09/30/19 13:28 Last Admin: 09/30/19 13:40 Dose: Not Given Documented by: GENIA Hydroxyzine Pamoate (Vistaril) 50 mg PO NOW ONE Stop: 09/30/19 13:36 Last Admin: 09/30/19 13:39 Dose: 50 mg Documented by: GENIA Ketorolac Tromethamine (Toradol) 30 mg IV NOW ONE Stop: 09/30/19 12:43 Last Admin: 09/30/19 13:00 Dose: 30 mg Documented by: DEXTER Labetalol HCl (Trandate) 10 mg IV NOW ONE Stop: 09/30/19 14:41 Last Admin: 09/30/19 15:01 Dose: Not Given Documented by: DEXTER Oxycodone/Acetaminophen (Percocet 5/325) 1 tab PO NOW ONE Stop: 09/30/19 15:35 Last Admin: 09/30/19 15:39 Dose: 1 tab Documented by: GENIA Vital Signs Vital signs: Vital Signs - 8 hr 09/30/19 11:37 09/30/19 12:15 09/30/19 14:28 Temperature 98.7 F Pulse Rate 75 73 73 Respiratory Rate 16 17 18 Blood Pressure 187/92 H Blood Pressure [Left Arm] 226/97 H 212/104 H Pulse Oximetry 97 97 98 09/30/19 15:17 09/30/19 16:02 09/30/19 16:38 Temperature Pulse Rate 74 81 68 Respiratory Rate 16 16 Blood Pressure 209/96 H Blood Pressure [Left Arm] 181/93 H 162/87 H Pulse Oximetry 97 98 <Crow Gorman MD - Last Filed: 10/01/19 07:15> Orders Ordered: Discontinued Medications Acetaminophen (Tylenol) 650 mg PO NOW ONE Stop: 09/30/19 12:43 Last Admin: 09/30/19 12:59 Dose: 650 mg Documented by: DEXTER Clonidine HCl (Catapres) 0.1 mg PO NOW ONE Stop: 09/30/19 14:50 Last Admin: 09/30/19 15:17 Dose: 0.1 mg Documented by: DEXTER Furosemide (Lasix) 10 mg IV NOW ONE Stop: 09/30/19 12:43 Last Admin: 09/30/19 13:01 Dose: Not Given Documented by: DEXTER Furosemide (Lasix) 10 mg IV NOW ONE Stop: 09/30/19 13:01 Last Admin: 09/30/19 13:01 Dose: 10 mg Documented by: DEXTER Hydroxyzine Pamoate (Vistaril) 50 mg PO NOW ONE Stop: 09/30/19 13:28 Last Admin: 09/30/19 13:40 Dose: Not Given Documented by: GENIA Hydroxyzine Pamoate (Vistaril) 50 mg PO NOW ONE Stop: 09/30/19 13:36 Last Admin: 09/30/19 13:39 Dose: 50 mg Documented by: GENIA Ketorolac Tromethamine (Toradol) 30 mg IV NOW ONE Stop: 09/30/19 12:43 Last Admin: 09/30/19 13:00 Dose: 30 mg Documented by: DEXTER Labetalol HCl (Trandate) 10 mg IV NOW ONE Stop: 09/30/19 14:41 Last Admin: 09/30/19 15:01 Dose: Not Given Documented by: DEXTER Oxycodone/Acetaminophen (Percocet 5/325) 1 tab PO NOW ONE Stop: 09/30/19 15:35 Last Admin: 09/30/19 15:39 Dose: 1 tab Documented by: GENIA Vital Signs Vital signs: Vital Signs - 8 hr 09/30/19 11:37 09/30/19 12:15 09/30/19 14:28 Temperature 98.7 F Pulse Rate 75 73 73 Respiratory Rate 16 17 18 Blood Pressure 187/92 H Blood Pressure [Left Arm] 226/97 H 212/104 H Pulse Oximetry 97 97 98 09/30/19 15:17 09/30/19 16:02 09/30/19 16:38 Temperature Pulse Rate 74 81 68 Respiratory Rate 16 16 Blood Pressure 209/96 H Blood Pressure [Left Arm] 181/93 H 162/87 H Pulse Oximetry 97 98 MDM - Back Pain/Injury <Rody Cooper [employer]ORTS AGENT-[employer] - Last Filed: 09/30/19 18:52> Lab Data Result diagrams: 09/30/19 11:51 09/30/19 11:51 Labs: Lab Results 09/30/19 09/30/19 09/30/19 Range/Units 11:51 11:51 11:51 WBC 7.2 (4.5-11.0) X10^3/uL RBC 3.98 L (4.5-5.9) X10^6/uL Hgb 12.4 L (13.5-17.5) g/dL Hct 34.1 L (41-53) % MCV 85.7 (80-100) fL MCH 31.1 (26-34) PG MCHC 36.3 H (30-36) % RDW 12.5 (11.6-14.8) % Plt Count 227 (150-400) X10^3/uL Neut % (Auto) 74.2 (50-75) % Lymph % (Auto) 13.8 L (25-40) % [place] % (Auto) 7.6 (3-14) % Eos % (Auto) 3.4 (2-4) % Baso % (Auto) 1.0 (0-2) % Neut # (Auto) 5300 (7818-4920) /uL Lymph # (Auto) 1000 L (1386-2891) /uL [place] # (Auto) 500 (0-900) /uL Eos # (Auto) 200 (0-450) /uL Baso # (Auto) 100 (0-100) /uL PT 12.6 (10.1-12.7) SECONDS INR 1.1 (0.9-1.3) APTT 39 H D (26.4-36.2) SECONDS Sodium 140 (137-145) mmol/L Potassium 3.8 (3.4-5.1) mmol/L Chloride 106 (98-107) mmol/L Carbon Dioxide 26 (22-32) mmol/L BUN 14 (9-20) mg/dL Creatinine 0.82 (0.66-1.25) mg/dL Estimated GFR > 60.0 (>60) mL/min BUN/Creatinine Ratio 17.1 (6-22) Glucose 99 (70-100) mg/dL Calcium 8.9 (8.4-10.2) mg/dL Total Bilirubin 1.1 (0.2-1.3) mg/dL AST 24 (17-59) IU/L ALT 15 (<50) IU/L Alkaline Phosphatase 65 (38-126) U/L Total Creatine Kinase 81 (55-170) U/L CK-MB (CK-2) TNP CK-MB (CK-2) Rel Index TNP Troponin I 0.032 (0.01-0.034) ng/mL NT-Pro-B Natriuret Pep (<125) pg/mL Total Protein 7.5 (6.3-8.2) g/dL Albumin 4.3 (3.5-5.0) g/dL Globulin 3.2 (1.7-4.1) g/dL Albumin/Globulin Ratio 1.3 (1.0-2.8) Lipase 17 L (23-300) U/L Urine RBC (0-5/HPF) Urine WBC (0-5/HPF) Urine Bacteria (None) Ur Culture Indicated? 09/30/19 09/30/19 09/30/19 Range/Units 11:51 12:42 13:54 WBC (4.5-11.0) X10^3/uL RBC (4.5-5.9) X10^6/uL Hgb (13.5-17.5) g/dL Hct (41-53) % MCV (80-100) fL MCH (26-34) PG MCHC (30-36) % RDW (11.6-14.8) % Plt Count (150-400) X10^3/uL Neut % (Auto) (50-75) % Lymph % (Auto) (25-40) % [place] % (Auto) (3-14) % Eos % (Auto) (2-4) % Baso % (Auto) (0-2) % Neut # (Auto) (1487-4917) /uL Lymph # (Auto) (8689-2167) /uL [place] # (Auto) (0-900) /uL Eos # (Auto) (0-450) /uL Baso # (Auto) (0-100) /uL PT (10.1-12.7) SECONDS INR (0.9-1.3) APTT (26.4-36.2) SECONDS Sodium (137-145) mmol/L Potassium (3.4-5.1) mmol/L Chloride (98-107) mmol/L Carbon Dioxide (22-32) mmol/L BUN (9-20) mg/dL Creatinine (0.66-1.25) mg/dL Estimated GFR (>60) mL/min BUN/Creatinine Ratio (6-22) Glucose (70-100) mg/dL Calcium (8.4-10.2) mg/dL Total Bilirubin (0.2-1.3) mg/dL AST (17-59) IU/L ALT (<50) IU/L Alkaline Phosphatase (38-126) U/L Total Creatine Kinase 92 (55-170) U/L CK-MB (CK-2) TNP CK-MB (CK-2) Rel Index TNP Troponin I 0.035 H (0.01-0.034) ng/mL NT-Pro-B Natriuret Pep 6480 H (<125) pg/mL Total Protein (6.3-8.2) g/dL Albumin (3.5-5.0) g/dL Globulin (1.7-4.1) g/dL Albumin/Globulin Ratio (1.0-2.8) Lipase (23-300) U/L Urine RBC 1-5/hpf (0-5/HPF) Urine WBC None seen (0-5/HPF) Urine Bacteria None seen (None) Ur Culture Indicated? Cult not indicated Urine Dip Bedside Urine Glucose Negative Bedside Urine Bilirubin - Negative Bedside Urine Ketone - Negative Urine Specific [place] 1.015 Bedside Urine Occult Blood + Bedside Urine pH 7.5 Bedside Urine Protein +/- 15 Bedside Urine Urobilinogen - Negative Bedside Urine Nitrite - Negative Bedside Urine Leukocytes - Negative Esterase Imaging Data Chest x-ray: Radiologist's Impression: [facility] [address] [place] [id number] XRay Report Signed Patient: Fidel Erwin EMR#: [id number] : 1965Acct:[id number] Age/Sex: 54 / MDate of Service: 09/30/19 Loc: ED Accession Number: [id number] Procedure: XR chest 1V Ordering Provider: Rody Cooper PROCEDURE: XR CHEST 1V INDICATIONS: chest pain TECHNIQUE: One view of the chest was acquired. COMPARISON: [facility], CR, XR CHEST 1V, 08/13/2019, 10:24. FINDINGS: Surgical changes and devices: Status post CABG procedure Lungs and pleura: Lungs are clear of acute opacities. Scarring involving the left midlung redemonstrated. Trace left pleural effusion. No pneumothorax. Mediastinum: Mediastinal contours appear normal. Heart size is normal. Bones and chest wall: No suspicious bony lesions. Overlying soft tissues appear unremarkable. IMPRESSION: Trace left-sided pleural effusion. Dictated by: Gris Hassan MD, PhD on 09/30/2019 at 12:17 Approved by: Gris Hassan MD, PhD on 09/30/2019 at 12:18 ECG Data Attestation: I personally reviewed and interpreted this ECG as follows: Interpretation: Sinus rhythm. Ventricular rate 73. P.r. interval 130. QRS 125. Viewed by Dr. Gorman MDM Narrative Medical decision making narrative: The patient is a 54-year-old male with complicated medical history who presents with a chief complaint of chest pain and shortness of breath since last night. He is noted to have an initial negative troponin, initial BNP of over 6000. He is noted to be hypertensive, is unclear whether not he has actually taken his medications this morning. He responded well to 10 mg of IV Lasix, then his repeat troponin became in determinate. I spoke with Dr. Childs, hospitalist who came down to evaluate the patient given that his BNP was elevated in his troponin is indeterminate. He kindly evaluated the patient, I discussed at length with the patient the possibility of admission. The patient does not want to be admitted to the hospital at this point time. His blood pressure was initially hypertensive in the 220/1 0s but he responded well to his clonidine. 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 The patient states that he takes Lasix at home, that is not knees EMR. I did discussed use of 20 mg of Lasix a day at this point. D iscussed coming back to the emergency department for any acute concerns such as chest pain, shortness of breath, concern of heart attack or stroke. Patient has no questions or concerns upon discharge. Of note the patient was repeatedly removing his monitor leads, blood pressure cuff, and attempted to ambulate outside of the emergency department with his IV still in place. <Crow Gorman MD - Last Filed: 10/01/19 07:15> Lab Data Labs: Lab Results 09/30/19 09/30/19 09/30/19 Range/Units 11:51 11:51 11:51 WBC 7.2 (4.5-11.0) X10^3/uL RBC 3.98 L (4.5-5.9) X10^6/uL Hgb 12.4 L (13.5-17.5) g/dL Hct 34.1 L (41-53) % MCV 85.7 (80-100) fL MCH 31.1 (26-34) PG MCHC 36.3 H (30-36) % RDW 12.5 (11.6-14.8) % Plt Count 227 (150-400) X10^3/uL Neut % (Auto) 74.2 (50-75) % Lymph % (Auto) 13.8 L (25-40) % [place] % (Auto) 7.6 (3-14) % Eos % (Auto) 3.4 (2-4) % Baso % (Auto) 1.0 (0-2) % Neut # (Auto) 5300 (6527-7566) /uL Lymph # (Auto) 1000 L (1512-1047) /uL [place] # (Auto) 500 (0-900) /uL Eos # (Auto) 200 (0-450) /uL Baso # (Auto) 100 (0-100) /uL PT 12.6 (10.1-12.7) SECONDS INR 1.1 (0.9-1.3) APTT 39 H D (26.4-36.2) SECONDS Sodium 140 (137-145) mmol/L Potassium 3.8 (3.4-5.1) mmol/L Chloride 106 (98-107) mmol/L Carbon Dioxide 26 (22-32) mmol/L BUN 14 (9-20) mg/dL Creatinine 0.82 (0.66-1.25) mg/dL Estimated GFR > 60.0 (>60) mL/min BUN/Creatinine Ratio 17.1 (6-22) Glucose 99 (70-100) mg/dL Calcium 8.9 (8.4-10.2) mg/dL Total Bilirubin 1.1 (0.2-1.3) mg/dL AST 24 (17-59) IU/L ALT 15 (<50) IU/L Alkaline Phosphatase 65 (38-126) U/L Total Creatine Kinase 81 (55-170) U/L CK-MB (CK-2) TNP CK-MB (CK-2) Rel Index TNP Troponin I 0.032 (0.01-0.034) ng/mL NT-Pro-B Natriuret Pep (<125) pg/mL Total Protein 7.5 (6.3-8.2) g/dL Albumin 4.3 (3.5-5.0) g/dL Globulin 3.2 (1.7-4.1) g/dL Albumin/Globulin Ratio 1.3 (1.0-2.8) Lipase 17 L (23-300) U/L Urine RBC (0-5/HPF) Urine WBC (0-5/HPF) Urine Bacteria (None) Ur Culture Indicated? 09/30/19 09/30/19 09/30/19 Range/Units 11:51 12:42 13:54 WBC (4.5-11.0) X10^3/uL RBC (4.5-5.9) X10^6/uL Hgb (13.5-17.5) g/dL Hct (41-53) % MCV (80-100) fL MCH (26-34) PG MCHC (30-36) % RDW (11.6-14.8) % Plt Count (150-400) X10^3/uL Neut % (Auto) (50-75) % Lymph % (Auto) (25-40) % [place] % (Auto) (3-14) % Eos % (Auto) (2-4) % Baso % (Auto) (0-2) % Neut # (Auto) (2277-0751) /uL Lymph # (Auto) (0026-2942) /uL [place] # (Auto) (0-900) /uL Eos # (Auto) (0-450) /uL Baso # (Auto) (0-100) /uL PT (10.1-12.7) SECONDS INR (0.9-1.3) APTT (26.4-36.2) SECONDS Sodium (137-145) mmol/L Potassium (3.4-5.1) mmol/L Chloride (98-107) mmol/L Carbon Dioxide (22-32) mmol/L BUN (9-20) mg/dL Creatinine (0.66-1.25) mg/dL Estimated GFR (>60) mL/min BUN/Creatinine Ratio (6-22) Glucose (70-100) mg/dL Calcium (8.4-10.2) mg/dL Total Bilirubin (0.2-1.3) mg/dL AST (17-59) IU/L ALT (<50) IU/L Alkaline Phosphatase (38-126) U/L Total Creatine Kinase 92 (55-170) U/L CK-MB (CK-2) TNP CK-MB (CK-2) Rel Index TNP Troponin I 0.035 H (0.01-0.034) ng/mL NT-Pro-B Natriuret Pep 6480 H (<125) pg/mL Total Protein (6.3-8.2) g/dL Albumin (3.5-5.0) g/dL Globulin (1.7-4.1) g/dL Albumin/Globulin Ratio (1.0-2.8) Lipase (23-300) U/L Urine RBC 1-5/hpf (0-5/HPF) Urine WBC None seen (0-5/HPF) Urine Bacteria None seen (None) Ur Culture Indicated? Cult not indicated Urine Dip Bedside Urine Glucose Negative Bedside Urine Bilirubin - Negative Bedside Urine Ketone - Negative Urine Specific [place] 1.015 Bedside Urine Occult Blood + Bedside Urine pH 7.5 Bedside Urine Protein +/- 15 Bedside Urine Urobilinogen - Negative Bedside Urine Nitrite - Negative Bedside Urine Leukocytes - Negative Esterase Discharge Plan Departure Patient Disposition: Home Clinical Impression: Elevated brain natriuretic peptide (BNP) level, Breath shortness Hypertension Qualifiers: Hypertension type: unspecified Qualified Code(s): I10 - Essential (primary) hypertension Chest pain Qualifiers: Chest pain type: unspecified Qualified Code(s): R07.9 - Chest pain, unspecified Discharge Date/Time: 09/30/19 17:10 Instructions: Essential Hypertension, DI for Heart Failure, DI for Atypical Chest Pain, DI for Shortness of Breath, DI for Chest Pain Activity Restrictions/Additional Instructions: Thank you for trusting us with your care today Your evaluation came back mostly normal. Your blood pressures been elevated, and there is some concern about heart failure given your labs. According to your records, this is not new. [email or web address] Please follow-up with primary care provider in the next few days. Please call them to try to arrange for an earlier appointment. I also suggest following up with your flanging roll operator. Please be sure to take your medications as directed. Please come back to the emergency department for any acute concerns. Prescriptions: New furosemide 20 mg tablet 20 mg PO DAILY Qty: 14 RF: 0 No Action sertraline 50 mg Tablet 25 mg PO QAM RF: 0 aspirin 81 mg Tablet,Chewable 81 mg PO DAILY RF: 0 clonidine HCl 0.1 mg tablet 0.1 - 0.2 mg PO BEDTIME RF: 0 spironolactone 25 mg tablet 12.5 mg PO DAILY RF: 0 gabapentin 100 mg capsule 200 mg PO TID RF: 0 ibuprofen [Advil] 200 mg Tablet 400 mg PO QID PRN (Reason: Pain (Scale Score 1-3)) RF: 0 olanzapine 5 mg Tablet 5 mg PO BID RF: 0 tizanidine 4 mg tablet 4 mg PO TID RF: 0 hydroxyzine HCl 25 mg tablet 25 mg PO Q6-8H PRN (Reason: Anxiety) RF: 0 bupropion HCl 150 mg tablet extended release 24 hr 450 mg PO QAM RF: 0 ketorolac 10 mg tablet 10 mg PO Q6H PRN (Reason: pain) Qty: 14 RF: 0 lidocaine [Lidoderm] 5 % adhesive patch,medicated 1 patch TOP DAILY Qty: 15 RF: 0 lisinopril 20 mg tablet 20 mg PO DAILY RF: 0 Referrals: Bossman Shah [Primary Care Provider] -
[2019-09-30 12:00] LABS: Add Manual Diff / Slide Review NO; Basophils Absolute Auto 100 /uL (0-100); Eosinophils Absolute Auto 200 /uL (0-450); Eosinophils Percent Auto 3.4 % (2-4); Hematocrit 34.1 % (41-53); Hemoglobin 12.4 g/dL (13.5-17.5); Lymphocytes Absolute Auto 1000 /uL (1100-4500); Lymphocytes Percent Auto 13.8 % (25-40); Mean Corpuscular HGB Conc 36.3 % (30-36); Mean Corpuscular Hemoglobin 31.1 PG (26-34); Mean Corpuscular Volume 85.7 fL (80-100); Monocytes Absolute Auto 500 /uL (0-900); Monocytes Percent Auto 7.6 % (3-14); Neutrophils Absolute Auto 5300 /uL (1500-7000); Neutrophils Percent Auto 74.2 % (50-75); Platelet Count 227 X10^3/uL (150-400); Red Blood Cell Count 3.98 X10^6/uL (4.5-5.9); Red Cell Distribution Width 12.5 % (11.6-14.8); White Blood Cell Count 7.2 X10^3/uL (4.5-11.0)
[2019-09-30 12:07] LABS: INR 1.1 (0.9-1.3); Prothrombin Time 12.6 SECONDS (10.1-12.7)
[2019-09-30 12:09] LABS: PTT Partial Thromboplastin Tim 39 SECONDS (26.4-36.2)
[2019-09-30 12:12] LABS: Alanine Aminotransferase 15 IU/L (<50); Albumin 4.3 g/dL (3.5-5.0); Albumin Globulin Ratio 1.3 (1.0-2.8); Alkaline Phosphatase 65 U/L (38-126); Aspartate Aminotransferase 24 IU/L (17-59); BUN Creatinine Ratio 17.1 (6-22); Bilirubin Total 1.1 mg/dL (0.2-1.3); Blood Urea Nitrogen 14 mg/dL (9-20); Calcium 8.9 mg/dL (8.4-10.2); Carbon Dioxide 26 mmol/L (22-32); Chloride 106 mmol/L (98-107); Creatine Kinase 81 U/L (55-170); Estimated Glomerular Filt Rate > 60.0 mL/min (>60); Globulin 3.2 g/dL (1.7-4.1); Glucose 99 mg/dL (70-100); HEMOLYSIS < 15 (0-50); Lipase 17 U/L (23-300); Potassium 3.8 mmol/L (3.4-5.1); Sodium 140 mmol/L (137-145); Total Protein 7.5 g/dL (6.3-8.2)
[2019-09-30 12:15] VITALS: BP 226/97; PULSE 73; RESP 17; O2SAT 97
[2019-09-30 12:23] LABS: Troponin I 0.032 ng/mL (0.01-0.034)
[2019-09-30 12:28] LABS: NT-proBNP (BNP-Adult 18+) 6480 pg/mL (<125)
[2019-09-30] MEDS: ACETAMINOPHEN 325 MG TABLET 650 MG PO (12:59)
[2019-09-30] MEDS: KETOROLAC 60 MG/2 ML VIAL 30 MG IV (13:00)
[2019-09-30] MEDS: FUROSEMIDE 40 MG/4 ML VIAL 10 MG IV (13:01)
[2019-09-30 13:04] LABS: Bacteria Urine None Seen; WBC Urine None Seen (0-5/HPF)
[2019-09-30 13:16] LABS: Culture Indicated Urine Cult Not Indicated; RBC Urine 1-5/HPF (0-5/HPF)
[2019-09-30] MEDS: hydrOXYzine pamoate 25 MG CAPSULE 50 MG PO ×2 (13:33→13:39)
[2019-09-30 14:11] LABS: Creatine Kinase 92 U/L (55-170)
[2019-09-30 14:24] LABS: Troponin I 0.035 ng/mL (0.01-0.034)
[2019-09-30 14:28] VITALS: BP 212/104; PULSE 73; RESP 18; O2SAT 98
[2019-09-30 15:17] VITALS: BP 209/96; PULSE 74
[2019-09-30] MEDS: cloNIDine 0.1 MG TABLET PO (15:17)
[2019-09-30] MEDS: OXYCODONE/ACETAMINOPHEN 5/325 TABLET 1 TAB PO (15:39)
--- NOTE | 2019-09-30 15:39 | P.CONS_ITS ---
History of Present Illness Consult details Date Patient Seen: 09/30/19 Time Patient Seen: 15:30 Chief complaint: headache/sob/chest pressure since last night Reason for consult: chest pressure, hypertension Requesting provider: Rody Cooper Narrative: Fidel العلي is a 54-year-old male with past medical history of CAD status post CABG in 2010 with mitral valve, CVA with some residual left-sided weakness, heart failure with reduced ejection fraction (most recent EF 25-30% on August 27, 2019), hypertension, prior osteomyelitis, and personality disorder who presented to the emergency room with an episode of chest pressure overnight lasting about 30 minutes. Patient also felt nauseous at the time. He was watching television when this occurred. He does not recall if he took his clonidine yesterday, and skipped his lisinopril dose this morning. He is also complaining of worsening chronic back pain as he has not taken his pain medications this morning. He does not recall many of the medications he takes. His chest pain has not recurred, nor have his symptoms. He was recently admitted to [facility] complaining of chest pain back in August. He had a repeat TTE there which was unchanged compared to prior. He was in custody at that time and was discharged. In the ER, patient was hypertensive initially to 187/92, increased to 226/97. Other vital signs were unremarkable. He is able to ambulate without any shortness of breath. He has no current chest pain. Initial CBC was unchanged compared to prior, coags were unremarkable, initial chemistries were unremarkable except for very mildly elevated troponin at 0.035, and a proBNP of 6480. Medicine was asked to evaluate. Patient was seen in the emergency room. He was previously admitted to the medicine service a couple of months ago for orthostatic syncope, and recommended medication changes at that time, however it is unclear if these were performed as the patient left Against Medical Advice before being seen the morning after admission. Meds Home Medications and Allergies Home Medications Medication Instructions Recorded Confirmed Type ibuprofen [Advil] 400 mg PO QID PRN 12/14/17 08/13/19 History lisinopril 20 mg tablet 20 mg PO DAILY 07/15/18 08/13/19 History sertraline 25 mg PO QAM 10/29/18 08/13/19 History olanzapine 5 mg PO BID 12/13/18 08/13/19 History bupropion HCl 450 mg PO QAM 12/23/18 08/13/19 History hydroxyzine HCl 25 mg PO Q6-8H PRN 12/23/18 08/13/19 History tizanidine 4 mg PO TID 12/23/18 08/13/19 History aspirin 81 mg PO DAILY 08/13/19 08/13/19 History clonidine HCl 0.1 - 0.2 mg PO BEDTIME 08/13/19 08/13/19 History gabapentin 200 mg PO TID 08/13/19 08/13/19 History spironolactone 12.5 mg PO DAILY 08/13/19 08/13/19 History ketorolac 10 mg PO Q6H PRN #14 tab 09/24/19 Rx lidocaine [Lidoderm] 1 patch TOP DAILY #15 each 09/24/19 Rx Allergies Allergy/AdvReac Type Severity Reaction Status Date / Time No Known Drug Allergies Allergy Verified 09/24/19 19:37 Review of Systems Review of Systems Narrative: All other systems reviewed with the patient and are negative unless otherwise stated. Exam Vital Signs (past 8 hours): - 09/30/19 11:37 09/30/19 12:15 09/30/19 14:28 Temperature 98.7 F Pulse Rate 75 73 73 Respiratory Rate 16 17 18 Blood Pressure 187/92 H Blood Pressure [Left Arm] 226/97 H 212/104 H Pulse Oximetry 97 97 98 09/30/19 15:17 Temperature Pulse Rate 74 Respiratory Rate Blood Pressure 209/96 H Blood Pressure [Left Arm] Pulse Oximetry Oxygen Delivery Method Room Air Narrative Exam Narrative: GENERAL APPEARANCE: Well developed, well nourished, in no acute distress. SKIN: Inspection of the skin reveals no rashes, ulcerations or petechiae. HEENT: Normocephalic atraumatic, extraocular muscles are intact, oropharynx is clear and mucous membranes are moist, neck is supple without adenopathy NECK: Supple and symmetric. There was no thyroid enlargement, and no tenderness, or masses were felt. CHEST: Normal AP diameter and normal contour without any kyphoscoliosis. Well- healed midline surgical scar. LUNGS: Auscultation of the lungs revealed no wheezes, rhonchi, or rales. CARDIOVASCULAR: There was a regular rate and rhythm without any murmurs, gallops, rubs. Peripheral pulses were 2+ and symmetric. ABDOMEN: Soft and nontender with normal bowel sounds. No ascites was noted. MUSCULOSKELETAL: There was no tenderness or effusions noted. Muscle strength and tone were normal. EXTREMITIES: No cyanosis, clubbing or edema. NEUROLOGIC: Alert and oriented x 3. Normal affect. Gait was normal. Strength is +5/5 in the Upper Extremities and Lower Extremities Bilaterally. Sensation to touch was normal. Objective Labs Result Diagrams: 09/30/19 11:51 09/30/19 11:51 Labs: Laboratory Results - last 24 hr 09/30/19 09/30/19 09/30/19 11:51 11:51 11:51 WBC 7.2 RBC 3.98 L Hgb 12.4 L Hct 34.1 L MCV 85.7 MCH 31.1 MCHC 36.3 H RDW 12.5 Plt Count 227 Neut % (Auto) 74.2 Lymph % (Auto) 13.8 L [place] % (Auto) 7.6 Eos % (Auto) 3.4 Baso % (Auto) 1.0 Neut # (Auto) 5300 Lymph # (Auto) 1000 L [place] # (Auto) 500 Eos # (Auto) 200 Baso # (Auto) 100 PT 12.6 INR 1.1 APTT 39 H D Sodium 140 Potassium 3.8 Chloride 106 Carbon Dioxide 26 BUN 14 Creatinine 0.82 Estimated GFR > 60.0 BUN/Creatinine Ratio 17.1 Glucose 99 Calcium 8.9 Total Bilirubin 1.1 AST 24 ALT 15 Alkaline Phosphatase 65 Total Creatine Kinase 81 CK-MB (CK-2) TNP CK-MB (CK-2) Rel Index TNP Troponin I 0.032 NT-Pro-B Natriuret Pep Total Protein 7.5 Albumin 4.3 Globulin 3.2 Albumin/Globulin Ratio 1.3 Lipase 17 L Urine RBC Urine WBC Urine Bacteria Ur Culture Indicated? 09/30/19 09/30/19 09/30/19 11:51 12:42 13:54 WBC RBC Hgb Hct MCV MCH MCHC RDW Plt Count Neut % (Auto) Lymph % (Auto) [place] % (Auto) Eos % (Auto) Baso % (Auto) Neut # (Auto) Lymph # (Auto) [place] # (Auto) Eos # (Auto) Baso # (Auto) PT INR APTT Sodium Potassium Chloride Carbon Dioxide BUN Creatinine Estimated GFR BUN/Creatinine Ratio Glucose Calcium Total Bilirubin AST ALT Alkaline Phosphatase Total Creatine Kinase 92 CK-MB (CK-2) TNP CK-MB (CK-2) Rel Index TNP Troponin I 0.035 H NT-Pro-B Natriuret Pep 6480 H Total Protein Albumin Globulin Albumin/Globulin Ratio Lipase Urine RBC 1-5/hpf Urine WBC None seen Urine Bacteria None seen Ur Culture Indicated? Cult not indicated Assessment & Plan Assessment & Plan narrative: Fidel العلي is a 54-year-old male with past medical history of CAD status post CABG in 2010 with mitral valve, CVA with some residual left-sided weakness, heart failure with reduced ejection fraction (most recent EF 25-30% on August 27, 2019), hypertension, prior osteomyelitis, and person ality disorder who presented to the emergency room with an episode of chest pressure overnight lasting about 30 minutes. 1. Chest pressure, resolved - Patient describes chest pressure that lasted for about 30 minutes with associated nausea. This may be secondary to GERD, hypertension, or slight v olume overload a.c. also complained of shortness of breath. Patient failed improved after a dose of Lasix. This may be related to his hypertensive episode. Initial EKG is unconcerning compared to prior, initial troponin of 0.035 is in the indeterminate range and just barely positive. Elevated proBNP of 6480, however the patient is well-appearing, and denies shortness of breath currently. He was also admitted with a similar episode a month ago to [facility] where he had an echocardiogram which was unchanged compared to prior. His prior documented stress testing was 2 years ago and was unremarkable. -would add Lasix 40 mg daily to the patient's home regimen. With outpatient follow-up with his primary care doctor early next week and regular scheduled cardiology follow-up as well. -if his blood pressure improves patient can be discharged home with follow-up as noted above. -suspect that his hypertension is related to medication noncompliance. 2. Hypertension, present on admission - as best as I can tell he takes clonidine, losartan, lisinopril, and lasix, however cannot find lasix dosing in the EMR. - would add lasix 40 mg as noted above 3. CHFrEF, possible mild exacerbation in setting of hypertension. - CXR with trace L pleural effusion. Patient relatively asymptomatic. Can trial outpatient therapy with 40 mg lasix daily and close outpatient follow up. Patient can be discharged home if blood pressure improved with recommendations as noted above.
[2019-09-30 16:02] VITALS: BP 181/93; PULSE 81; RESP 16; O2SAT 97
[2019-09-30 16:38] VITALS: BP 162/87; PULSE 68; RESP 16; O2SAT 98
== END 2019-09-30 17:10 | disposition home or self-care (01) ==
PROVIDERS: Emergency Provider Nurse Practitioner Family; PCP Internal Medicine
DX: R79.89 Other specified abnormal findings of blood chemistry (principal); R06.02 Shortness of breath; I10 Essential (primary) hypertension; R07.9 Chest pain, unspecified
CPT/HCPCS: 36415; 71045; 80053; 81003; 81015; 82550; 83690; 83880; 84484; 85025; 85610; 85730; 93005; 96374; 96375; 99284; 99285; J1885; J1940

== ENCOUNTER → 2019-12-06 07:25 | Outpatient (CLI) | payer OTHER, SELFPAY ==
[2019-11-22 11:03] VITALS: BMI 26.6
[2019-12-06 08:43] LABS: Add Manual Diff / Slide Review NO; Basophils Absolute Auto 100 /uL (0-100); Basophils Percent Auto 0.9 % (0-2); Eosinophils Absolute Auto 300 /uL (0-450); Eosinophils Percent Auto 5.3 % (2-4); Hematocrit 41.2 % (41-53); Hemoglobin 14.1 g/dL (13.5-17.5); Lymphocytes Absolute Auto 1800 /uL (1100-4500); Lymphocytes Percent Auto 29.8 % (25-40); Mean Corpuscular HGB Conc 34.1 % (30-36); Mean Corpuscular Hemoglobin 30.8 PG (26-34); Mean Corpuscular Volume 90.3 fL (80-100); Monocytes Absolute Auto 400 /uL (0-900); Monocytes Percent Auto 7.1 % (3-14); Neutrophils Absolute Auto 3400 /uL (1500-7000); Neutrophils Percent Auto 56.9 % (50-75); Platelet Count 189 X10^3/uL (150-400); Red Blood Cell Count 4.56 X10^6/uL (4.5-5.9); Red Cell Distribution Width 13.4 % (11.6-14.8); White Blood Cell Count 5.9 X10^3/uL (4.5-11.0)
[2019-12-06 09:01] LABS: Alanine Aminotransferase 20 IU/L (<50); Albumin 4.8 g/dL (3.5-5.0); Albumin Globulin Ratio 1.9 (1.0-2.8); Alkaline Phosphatase 55 U/L (38-126); Aspartate Aminotransferase 18 IU/L (17-59); BUN Creatinine Ratio 24.4 (6-22); Bilirubin Total 0.4 mg/dL (0.2-1.3); Blood Urea Nitrogen 19 mg/dL (9-20); Calcium 9.4 mg/dL (8.4-10.2); Carbon Dioxide 22 mmol/L (22-32); Chloride 103 mmol/L (98-107); Estimated Glomerular Filt Rate > 60.0 mL/min (>60); Globulin 2.5 g/dL (1.7-4.1); Glucose 95 mg/dL (70-100); HEMOLYSIS < 15 (0-50); Potassium 4.1 mmol/L (3.4-5.1); Sodium 137 mmol/L (137-145); Total Protein 7.3 g/dL (6.3-8.2)
[2019-12-06 09:20] LABS: Free T4, Direct Thyroxine 1.18 ng/dL (0.78-2.19)
[2019-12-06 09:34] LABS: Thyroid Stimulating Hormone 1.33 uIU/mL (0.47-4.68)
[2019-12-06 11:23] LABS: UR Morphine/Opiate cutoff 300 Negative (Negative); Ur Creatinine Normal (Normal); Ur Specific Gravity Normal (Normal); Urine Amphetamines Negative (Negative); Urine Barbiturates Negative (Negative); Urine Benzodiazepines Negative (Negative); Urine Cocaine Negative (Negative); Urine MDMA Negative (Negative); Urine Methadone Negative (Negative); Urine Methamphetamines Negative (Negative); Urine Oxycodone Negative (Negative); Urine Phencyclidine Negative (Negative); Urine Tetrahydrocannabinol Negative (Negative); Urine Tricyclic Antidepressant Negative (Negative); Urine pH Normal (Normal)
== END ==
PROVIDERS: PCP Internal Medicine; Referring Provider Psychiatry & Neurology Psychiatry; Visit Provider Psychiatry & Neurology Psychiatry
DX: F31.81 Bipolar II disorder (principal)
CPT/HCPCS: 36415; 80053; 80305; 84439; 84443; 85025

== ENCOUNTER 2019-12-27 19:22 | Emergency (ER) | payer OTHER, SELFPAY ==
[2019-11-22 11:03] VITALS: BMI 26.6
[2019-12-27 19:28] VITALS: BP 140/73; PULSE 94; RESP 15; TEMP 36.9; O2SAT 98; BMI 24.0
[2019-12-27 19:58] VITALS: BP 135/71; PULSE 85; O2SAT 98
[2019-12-27 19:59] VITALS: BP 141/80; PULSE 79; O2SAT 98
[2019-12-27 20:00] VITALS: BP 133/65; PULSE 77; O2SAT 97
--- NOTE | 2019-12-27 20:23 | ED_ITS ---
HPI - Abdominal Pain General Chief Complaint: Abdominal Pain Stated Complaint: stomach issues, back pain, anxiety, depression Time Seen by Provider: 12/27/19 19:25 Source: patient Mode of arrival: Ambulatory Limitations: no limitations History of Present Illness HPI narrative: 54-year-old male daily smoker with history of anxiety and depression presents with a chief complaint of some diffuse, mild abdominal pain and back pain for the past few. Admits to some decreased bowel. He states his pain is slightly worse with motion and improves with rest. Denies any loss of control of bowel or bladder. He denies numbness, tingling or weakness of his lower extremities. He denies any dysuria, frequency or urgency. He has had no fever or chills and denies any injury. MD complaint: abdominal pain Onset (ago): day(s) Pain Consistency: intermittent Location: diffuse Severity: moderate Quality: cramping Relieving factors: nothing Exacerbating factors: nothing Related Data Home Medications Medication Instructions Recorded Confirmed ibuprofen [Advil] 400 mg PO QID PRN 12/14/17 12/12/19 lisinopril 20 mg tablet 20 mg PO DAILY 07/15/18 12/12/19 hydroxyzine HCl 25 mg PO Q6-8H PRN 12/23/18 12/12/19 aspirin 81 mg PO DAILY 08/13/19 12/12/19 clonidine HCl 0.1 - 0.2 mg PO BEDTIME 08/13/19 12/12/19 gabapentin 200 mg PO TID 08/13/19 12/12/19 spironolactone 12.5 mg PO DAILY 08/13/19 12/12/19 Previous Rx's Medication Instructions Recorded furosemide 20 mg PO DAILY #14 tab 09/30/19 bupropion HCl 150 mg 24 hr tablet, 450 mg PO QAM #90 tab 11/28/19 extended release tizanidine 4 mg tablet 4 mg PO TID #90 tab 11/28/19 olanzapine 5 mg tablet 5 mg PO BEDTIME #30 tab 12/14/19 Allergies Allergy/AdvReac Type Severity Reaction Status Date / Time No Known Drug Allergies Allergy Verified 12/12/19 14:14 Review of Systems Constitutional Constitutional: Denies chills, Denies fatigue, Denies fever(s), Denies frequent falls, Denies lethargy and Denies weakness Eyes Eyes: Denies change in vision, Denies eye discharge, Denies irritation and Denies loss of vision ENT Ears, Nose, Mouth, and Throat: Denies change in voice, Denies dizziness, Denies neck pain, Denies sore throat and Denies throat swelling Cardiovascular Cardiovascular: Denies chest pain, Denies irregular heart rhythm, Denies lightheadedness, Denies palpitations, Denies dyspnea, Denies dyspnea on exertion and Denies orthopnea Respiratory Respiratory: Denies cough, Denies dyspnea, Denies dyspnea on exertion and Denies wheezing Gastrointestinal Gastrointestinal: Reports abdominal pain, Denies change in bowel habits, Denies diarrhea, Denies nausea and Denies vomiting Musculoskeletal Musculoskeletal: Reports back pain, Denies neck pain and Denies numbness Integumentary/Breasts Skin/Breast: Denies pruritus, Denies erythema, Denies rash and Denies wounds Neurologic Neurologic: Denies behavioral changes, Denies confusion, Denies dizziness, Denies frequent falls, Denies loss of vision, Denies numbness and Denies weakness Psychiatric Psychiatric: Reports anxiety, Denies behavioral changes, Denies confusion, Denies depression, Denies homicidal ideation and Denies suicidal ideation Endocrine Endocrine: Denies fatigue, Denies flushing and Denies palpitations Hematologic/Lymphatic Hematologic/Lymphatic: Denies easy bruising Allergic/Immunologic Allergic/Immunologic: Denies urticaria, Denies throat swelling and Denies wheezing Patient History Medical History Anxiety (Chronic) Coronary artery disease (Acute) Discitis (Acute) HTN (hypertension) (Chronic) 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 Well- nourished, well-developed patient, in mild distress. Affect HEAD: Atraumatic. Normocephalic. EYES: Pupils equal round and reactive. Extraocular motions intact. No scleral icterus. No injection or drainage. ENT: Nose without bleeding, purulent drainage. Throat without erythema, tonsillar hypertrophy or exudate. Airway patent. NECK: Trachea midline. Non tender CARDIOVASCULAR: Regular rate and rhythm without murmurs, gallops, or rubs. RESPIRATORY: Clear to auscultation. Breath sounds equal bilaterally. No wheezes, rales, or rhonchi. GASTROINTESTINAL: Abdomen soft, mild tenderness generalized, nondistended. EXTREMITIES: No edema or joint tenderness. BACK: spool tender but free of any obvious external abnormalities. Patient exam notes decreased range of motion and muscle spasm, but no CVA tenderness, or vertebral point tenderness. There are no symptoms of cauda equina such as saddle anesthesia, and decreased reflexes, decreased sensation or strength. NEURO: AOx3. SKIN: No rash or erythema of visible areas Initial Vital Signs Initial Vital Signs: Vital Signs Temperature 98.5 F 12/27/19 19:28 Pulse Rate 94 H 12/27/19 19:28 Respiratory Rate 15 12/27/19 19:28 Blood Pressure 140/73 12/27/19 19:28 Pulse Oximetry 98 12/27/19 19:28 Scores ABCD2 Citation: Lancet. 2006May 16;369(1950):283-92. Validation and refinement of scores to predict very early stroke risk after transient ischaemic attack. Chavo SC1, Mary PM, Alfredo MN, Brayan MF, Carri JS, Josseline AL, Isidro S. Course Orders Ordered: ED Orders 12/27/19 20:34 XR acute abdomen series Stat 12/27/19 20:41 Complete Blood Count AUTO DIFF Stat Comprehensive Metabolic Panel Stat Lipase Stat Discontinued Medications Sodium Chloride (Normal Saline 0.9%) 1,000 mls @ 150 mls/hr IV CONT LEONA Last Infusion: 12/27/19 21:40 Dose: 0 mls/hr Documented by: Admin: 12/27/19 20:44 Dose: 150 mls/hr Documented by: ELEANOR Pantoprazole Sodium (Protonix) 40 mg IV NOW ONE Stop: 12/27/19 20:34 Last Admin: 12/27/19 20:45 Dose: 40 mg Documented by: ELEANOR Vital Signs Vital signs: Vital Signs - 8 hr 12/27/19 19:28 12/27/19 19:58 12/27/19 19:59 Temperature 98.5 F Pulse Rate 94 H 85 79 Respiratory Rate 15 Blood Pressure 140/73 135/71 141/80 H Pulse Oximetry 98 98 98 12/27/19 20:00 Temperature Pulse Rate 77 Respiratory Rate Blood Pressure 133/65 Pulse Oximetry 97 MDM - Abdominal Pain Lab Data Result diagrams: 12/27/19 20:41 12/27/19 20:41 Labs: Lab Results 12/27/19 12/27/19 Range/Units 20:41 20:41 WBC 7.9 (4.5-11.0) X10^3/uL RBC 4.42 L (4.5-5.9) X10^6/uL Hgb 14.1 (13.5-17.5) g/dL Hct 40.4 L (41-53) % MCV 91.3 (80-100) fL MCH 31.9 (26-34) PG MCHC 34.9 (30-36) % RDW 13.2 (11.6-14.8) % Plt Count 199 (150-400) X10^3/uL Neut % (Auto) 64.6 (50-75) % Lymph % (Auto) 24.5 L (25-40) % [place] % (Auto) 7.3 (3-14) % Eos % (Auto) 3.0 (2-4) % Baso % (Auto) 0.6 (0-2) % Neut # (Auto) 5100 (4862-8075) /uL Lymph # (Auto) 1900 (2553-1416) /uL [place] # (Auto) 600 (0-900) /uL Eos # (Auto) 200 (0-450) /uL Baso # (Auto) 0 (0-100) /uL Sodium 138 (137-145) mmol/L Potassium 3.9 (3.4-5.1) mmol/L Chloride 105 (98-107) mmol/L Carbon Dioxide 24 (22-32) mmol/L BUN 31 H (9-20) mg/dL Creatinine 0.79 (0.66-1.25) mg/dL Estimated GFR > 60.0 (>60) mL/min BUN/Creatinine Ratio 39.2 H (6-22) Glucose 88 (70-100) mg/dL Calcium 9.8 (8.4-10.2) mg/dL Total Bilirubin 0.5 (0.2-1.3) mg/dL AST 27 (17-59) IU/L ALT 48 (<50) IU/L Alkaline Phosphatase 55 (38-126) U/L Total Protein 8.1 (6.3-8.2) g/dL Albumin 5.0 (3.5-5.0) g/dL Globulin 3.1 (1.7-4.1) g/dL Albumin/Globulin Ratio 1.6 (1.0-2.8) Lipase 76 (23-300) U/L Imaging Data Abdominal x-ray: Radiologist's Impression: [address] [address] XRay Report Signed Patient: Fidel Erwin EMR#: [id number] : 1965Acct:[id number] Age/Sex: 54 / MDate of Service: 12/27/19 Loc: ED Accession Number: [id number] Procedure: XR acute abdomen series Ordering Provider: Spencer Wolf D.O. PROCEDURE: XR ACUTE ABDOMEN SERIES INDICATIONS: Abdominal pain TECHNIQUE: One view chest and two views of the abdomen were acquired. COMPARISON: [facility], CT, CT KIDNEY URETER BLADDER (KUB), 12/23/2017, 7:31. FINDINGS: Surgical changes and devices: Sternal wires valve replacement are noted. Chest: Lungs are clear. Heart size is mildly prominent. No pleural effusions. No pneumoperitoneum. Abdomen: Moderate colonic stool is present without obstruction. No suspicious calcifications. Visualized solid organ contours appear normal. Bones: No suspicious bony lesions. IMPRESSION: Moderate stool consistent with constipation. No obstruction. Dictated by: Kathleen Zheng M.D. on 12/27/2019 at 21:00 Approved by: Kathleen Zheng M.D. on 12/27/2019 at 21:00 Discharge Plan Departure Patient Disposition: Home Clinical Impression: Constipation Qualifiers: Constipation type: unspecified constipation type Qualified Code(s): K59.00 - Co nstipation, unspecified Discharge Date/Time: 12/27/19 21:45 Instructions: DI for Constipation Activity Restrictions/Additional Instructions: *You have been diagnosed with [ abdominal pain due to constipation ] *What to do: *Take over the counter medications as directed: 1. Metamucil - is a bulk forming laxative and adds fiber 2. Colace - softens your stool 3. Dulcolax suppository - stimulates your bowels *Follow up with your primary care provider in 2-3 days, call for appointment *Return to ER if you should have any new, worsening or concerning symptoms *Drink plenty of water and eat foods high in fiber *Stay as active as you can as this helps move your bowels as well Prescriptions: No Action bupropion HCl 150 mg tablet extended release 24 hr 450 mg PO QAM Qty: 90 RF: 1 tizanidine 4 mg tablet 4 mg PO TID Qty: 90 RF: 1 olanzapine 5 mg tablet 5 mg PO BEDTIME Qty: 30 RF: 1 aspirin 81 mg Tablet,Chewable 81 mg PO DAILY RF: 0 clonidine HCl 0.1 mg tablet 0.1 - 0.2 mg PO BEDTIME RF: 0 spironolactone 25 mg tablet 12.5 mg PO DAILY RF: 0 gabapentin 100 mg capsule 200 mg PO TID RF: 0 furosemide 20 mg tablet 20 mg PO DAILY Qty: 14 RF: 0 ibuprofen [Advil] 200 mg Tablet 400 mg PO QID PRN (Reason: Pain (Scale Score 1-3)) RF: 0 hydroxyzine HCl 25 mg tablet 25 mg PO Q6-8H PRN (Reason: Anxiety) RF: 0 lisinopril 20 mg tablet 20 mg PO DAILY RF: 0 Referrals: Bossman Shah [Primary Care Provider] -
--- NOTE | 2019-12-27 20:34 | DI.RAD.S_ITS ---
PROCEDURE: XR ACUTE ABDOMEN SERIES INDICATIONS: Abdominal pain TECHNIQUE: One view chest and two views of the abdomen were acquired. COMPARISON: [facility], CT, CT KIDNEY URETER BLADDER (KUB), 12/23/2017, 7:31. FINDINGS: Surgical changes and devices: Sternal wires valve replacement are noted. Chest: Lungs are clear. Heart size is mildly prominent. No pleural effusions. No pneumoperitoneum. Abdomen: Moderate colonic stool is present without obstruction. No suspicious calcifications. Visualized solid organ contours appear normal. Bones: No suspicious bony lesions. IMPRESSION: Moderate stool consistent with constipation. No obstruction. Dictated by: Kathleen Zheng M.D. on 12/27/2019 at 21:00 Approved by: Kathleen Zheng M.D. on 12/27/2019 at 21:00
[2019-12-27] MEDS: SODIUM CHLORIDE 0.9% 1,000 ML 150 ML IV (20:44)
[2019-12-27] MEDS: PANTOPRAZOLE 40 MG VIAL IV (20:45)
[2019-12-27 20:46] LABS: Add Manual Diff / Slide Review NO; Basophils Absolute Auto 0 /uL (0-100); Basophils Percent Auto 0.6 % (0-2); Eosinophils Absolute Auto 200 /uL (0-450); Hematocrit 40.4 % (41-53); Hemoglobin 14.1 g/dL (13.5-17.5); Lymphocytes Absolute Auto 1900 /uL (1100-4500); Lymphocytes Percent Auto 24.5 % (25-40); Mean Corpuscular HGB Conc 34.9 % (30-36); Mean Corpuscular Hemoglobin 31.9 PG (26-34); Mean Corpuscular Volume 91.3 fL (80-100); Monocytes Absolute Auto 600 /uL (0-900); Monocytes Percent Auto 7.3 % (3-14); Neutrophils Absolute Auto 5100 /uL (1500-7000); Neutrophils Percent Auto 64.6 % (50-75); Platelet Count 199 X10^3/uL (150-400); Red Blood Cell Count 4.42 X10^6/uL (4.5-5.9); Red Cell Distribution Width 13.2 % (11.6-14.8); White Blood Cell Count 7.9 X10^3/uL (4.5-11.0)
[2019-12-27 21:01] LABS: Alanine Aminotransferase 48 IU/L (<50); Albumin Globulin Ratio 1.6 (1.0-2.8); Alkaline Phosphatase 55 U/L (38-126); Aspartate Aminotransferase 27 IU/L (17-59); BUN Creatinine Ratio 39.2 (6-22); Bilirubin Total 0.5 mg/dL (0.2-1.3); Blood Urea Nitrogen 31 mg/dL (9-20); Calcium 9.8 mg/dL (8.4-10.2); Carbon Dioxide 24 mmol/L (22-32); Chloride 105 mmol/L (98-107); Estimated Glomerular Filt Rate > 60.0 mL/min (>60); Globulin 3.1 g/dL (1.7-4.1); Glucose 88 mg/dL (70-100); HEMOLYSIS < 15 (0-50); Lipase 76 U/L (23-300); Potassium 3.9 mmol/L (3.4-5.1); Sodium 138 mmol/L (137-145); Total Protein 8.1 g/dL (6.3-8.2)
== END 2019-12-27 21:45 | disposition home or self-care (01) ==
PROVIDERS: Emergency Provider Emergency Medicine; PCP Internal Medicine
DX: K59.00 Constipation, unspecified (principal); F41.9 Anxiety disorder, unspecified; M54.9 Dorsalgia, unspecified; F32.9 Major depressive disorder, single episode, unspecified
CPT/HCPCS: 36415; 51798; 74022; 80053; 83690; 85025; 96361; 96374; 99284; C9113

== ENCOUNTER 2020-01-02 11:31 | Emergency (ER) | payer OTHER, SELFPAY ==
[2019-11-22 11:03] VITALS: BMI 26.6
[2020-01-02] VITALS (40 sets, daily range): BP systolic 156; BP diastolic 74; PULSE 66–86; RESP 15–32; O2SAT 77–99
--- NOTE | 2020-01-02 11:48 | DI.RAD.S_ITS ---
PROCEDURE: XR CHEST 1V INDICATIONS: chest pain TECHNIQUE: One view of the chest was acquired. COMPARISON: [facility], CR, XR CHEST 1V, 09/30/2019, 11:55. [facility], CR, XR CHEST 1 VIEW, 11/06/2019, 20:50. FINDINGS: Surgical changes and devices: Sternal wires, hilar clips and valve replacement are noted. Lungs and pleura: Lungs are clear. No pleural effusions or pneumothorax. Mediastinum: Mediastinal contours appear normal. Heart size is normal. Bones and chest wall: No suspicious bony lesions. Overlying soft tissues appear unremarkable. IMPRESSION: No acute pulmonary process. Dictated by: Kathleen Zheng M.D. on 01/02/2020 at 12:42 Approved by: Kathleen Zheng M.D. on 01/02/2020 at 12:43
[2020-01-02 12:31] LABS: Add Manual Diff / Slide Review NO; Basophils Absolute Auto 0 /uL (0-100); Basophils Percent Auto 0.9 % (0-2); Eosinophils Absolute Auto 100 /uL (0-450); Eosinophils Percent Auto 2.3 % (2-4); Hematocrit 38.2 % (41-53); Hemoglobin 13.1 g/dL (13.5-17.5); Lymphocytes Absolute Auto 1500 /uL (1100-4500); Lymphocytes Percent Auto 28.1 % (25-40); Mean Corpuscular HGB Conc 34.2 % (30-36); Mean Corpuscular Volume 90.5 fL (80-100); Monocytes Absolute Auto 200 /uL (0-900); Monocytes Percent Auto 4.6 % (3-14); Neutrophils Absolute Auto 3400 /uL (1500-7000); Neutrophils Percent Auto 64.1 % (50-75); Platelet Count 188 X10^3/uL (150-400); Red Blood Cell Count 4.22 X10^6/uL (4.5-5.9); Red Cell Distribution Width 14.1 % (11.6-14.8); White Blood Cell Count 5.3 X10^3/uL (4.5-11.0)
[2020-01-02 12:38] LABS: PTT Partial Thromboplastin Tim 30 SECONDS (26.4-36.2)
--- NOTE | 2020-01-02 12:42 | PC.NURSE ---
Patient took out his own IV and left without being seen. He would not answer when he would ask why he was leaving. He did not want help removing his EKG leads and would not sign the LWBS paperwork. He was alert and oriented to person place and situation when he left. He was not in acute distress at time of departure. He was ambulatory and had a steady gait.
--- NOTE | 2020-01-02 12:42 | PC.NURSE ---
pt up walking around room, blood on floor from IV removal, pt unwilling to answer questions when asked what was going on. Pt walking into hallway. I stated to patient he was concerned enough to call 911 he should stay to be evaluated by the provider. Pt stated he is no longer concerned. Pt asked what his plan is for when he leaves here, pt stated I am going to walk home. Pt walking without difficulty, pt dressed self without assistance. Pt left to lobby and refused to sign papers.
[2020-01-02 12:46] LABS: Alanine Aminotransferase 21 IU/L (<50); Albumin 4.4 g/dL (3.5-5.0); Albumin Globulin Ratio 1.6 (1.0-2.8); Alkaline Phosphatase 40 U/L (38-126); Aspartate Aminotransferase 19 IU/L (17-59); BUN Creatinine Ratio 34.3 (6-22); Bilirubin Total 0.4 mg/dL (0.2-1.3); Blood Urea Nitrogen 24 mg/dL (9-20); Calcium 9.4 mg/dL (8.4-10.2); Carbon Dioxide 30 mmol/L (22-32); Chloride 107 mmol/L (98-107); Creatine Kinase 75 U/L (55-170); Estimated Glomerular Filt Rate > 60.0 mL/min (>60); Globulin 2.7 g/dL (1.7-4.1); Glucose 90 mg/dL (70-100); HEMOLYSIS < 15 (0-50); Lipase 57 U/L (23-300); Sodium 144 mmol/L (137-145); Total Protein 7.1 g/dL (6.3-8.2)
[2020-01-02 12:55] LABS: Troponin I < 0.012 ng/mL (0.01-0.034)
--- NOTE | 2020-01-02 17:07 | ED_ITS ---
HPI - Chest Pain General Chief Complaint: Chest Pain Stated Complaint: L arm numbness Time Seen by Provider: 01/02/20 12:33 Source: EMS Mode of arrival: EMS Limitations: no limitations Related Data Home Medications Medication Instructions Recorded Confirmed ibuprofen [Advil] 400 mg PO QID PRN 12/14/17 12/12/19 lisinopril 20 mg tablet 20 mg PO DAILY 07/15/18 12/12/19 hydroxyzine HCl 25 mg PO Q6-8H PRN 12/23/18 12/12/19 aspirin 81 mg PO DAILY 08/13/19 12/12/19 clonidine HCl 0.1 - 0.2 mg PO BEDTIME 08/13/19 12/12/19 gabapentin 200 mg PO TID 08/13/19 12/12/19 spironolactone 12.5 mg PO DAILY 08/13/19 12/12/19 Previous Rx's Medication Instructions Recorded furosemide 20 mg PO DAILY #14 tab 09/30/19 bupropion HCl 150 mg 24 hr tablet, 450 mg PO QAM #90 tab 11/28/19 extended release tizanidine 4 mg tablet 4 mg PO TID #90 tab 11/28/19 olanzapine 5 mg tablet 5 mg PO BEDTIME #30 tab 12/14/19 clonazepam 0.5 mg tablet 0.5 mg PO TID #90 tab 12/28/19 Allergies Allergy/AdvReac Type Severity Reaction Status Date / Time No Known Drug Allergies Allergy Verified 12/12/19 14:14 Patient History Medical History (Updated 01/02/20 @ 12:45 by Sabrina Cook RN) Anxiety (Chronic) Coronary artery disease (Acute) Discitis (Acute) HTN (hypertension) (Chronic) 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) Surgical History S/P CABG x 4 (Acute) Social History household members: family and other Smoking Status: Current every day smoker alcohol intake: former Smoking Status: Current every day smoker tobacco type: cigarettes alcohol intake frequency: 0-2 drinks per day Substance Use Type: does not use Exam Initial Vital Signs Initial Vital Signs: Vital Signs Pulse Rate 69 01/02/20 11:50 Respiratory Rate 18 01/02/20 11:50 Pulse Oximetry 98 01/02/20 11:50 Course Orders Ordered: ED Orders 01/02/20 11:48 XR chest 1V Stat EKG-12 Lead Stat 01/02/20 12:15 Complete Blood Count AUTO DIFF Stat Comprehensive Metabolic Panel Stat Lipase Stat Partial Thromboplastin Time Stat Prothrombin Time INR Stat Troponin & CK Cardiac Panel Stat Vital Signs Vital signs: Vital Signs - 8 hr 01/02/20 11:50 01/02/20 12:00 01/02/20 12:01 Pulse Rate 69 68 68 Respiratory Rate 18 15 22 Blood Pressure 156/74 H Pulse Oximetry 98 98 98 01/02/20 12:02 01/02/20 12:03 01/02/20 12:04 Pulse Rate 68 69 68 Respiratory Rate 18 15 19 Blood Pressure Pulse Oximetry 98 98 98 01/02/20 12:05 01/02/20 12:06 01/02/20 12:07 Pulse Rate 70 68 68 Respiratory Rate 17 18 18 Blood Pressure Pulse Oximetry 98 99 99 01/02/20 12:08 01/02/20 12:09 01/02/20 12:10 Pulse Rate 69 67 68 Respiratory Rate 19 18 19 Blood Pressure Pulse Oximetry 99 99 99 01/02/20 12:11 01/02/20 12:12 01/02/20 12:13 Pulse Rate 69 68 67 Respiratory Rate 18 15 17 Blood Pressure Pulse Oximetry 99 98 99 01/02/20 12:14 01/02/20 12:15 01/02/20 12:16 Pulse Rate 66 71 68 Respiratory Rate 17 16 17 Blood Pressure Pulse Oximetry 98 98 98 01/02/20 12:17 01/02/20 12:18 01/02/20 12:19 Pulse Rate 68 72 73 Respiratory Rate 18 19 21 Blood Pressure Pulse Oximetry 98 98 99 01/02/20 12:20 01/02/20 12:21 01/02/20 12:22 Pulse Rate 80 81 82 Respiratory Rate 32 H 27 H 31 H Blood Pressure Pulse Oximetry 99 80 L 77 L 01/02/20 12:23 01/02/20 12:24 01/02/20 12:25 Pulse Rate 79 81 79 Respiratory Rate 25 H 15 22 Blood Pressure Pulse Oximetry 81 L 01/02/20 12:26 01/02/20 12:27 01/02/20 12:28 Pulse Rate 82 78 81 Respiratory Rate 17 16 27 H Blood Pressure Pulse Oximetry 01/02/20 12:29 01/02/20 12:30 01/02/20 12:31 Pulse Rate 86 84 83 Respiratory Rate 28 H 26 H 27 H Blood Pressure Pulse Oximetry 01/02/20 12:32 01/02/20 12:33 01/02/20 12:34 Pulse Rate 81 84 80 Respiratory Rate 19 23 27 H Blood Pressure Pulse Oximetry 01/02/20 12:35 01/02/20 12:36 01/02/20 12:37 Pulse Rate 81 78 79 Respiratory Rate 25 H 18 21 Blood Pressure Pulse Oximetry 01/02/20 12:38 Pulse Rate 85 Respiratory Rate 31 H Blood Pressure Pulse Oximetry MDM - Chest Pain Lab Data Result diagrams: 01/02/20 12:15 01/02/20 12:15 Labs: Lab Results 01/02/20 01/02/20 01/02/20 Range/Units 12:15 12:15 12:15 WBC 5.3 (4.5-11.0) X10^3/uL RBC 4.22 L (4.5-5.9) X10^6/uL Hgb 13.1 L (13.5-17.5) g/dL Hct 38.2 L (41-53) % MCV 90.5 (80-100) fL MCH 31.0 (26-34) PG MCHC 34.2 (30-36) % RDW 14.1 (11.6-14.8) % Plt Count 188 (150-400) X10^3/uL Neut % (Auto) 64.1 (50-75) % Lymph % (Auto) 28.1 (25-40) % [place] % (Auto) 4.6 (3-14) % Eos % (Auto) 2.3 (2-4) % Baso % (Auto) 0.9 (0-2) % Neut # (Auto) 3400 (3632-3624) /uL Lymph # (Auto) 1500 (5253-4951) /uL [place] # (Auto) 200 (0-900) /uL Eos # (Auto) 100 (0-450) /uL Baso # (Auto) 0 (0-100) /uL PT 12.0 (10.1-12.7) SECONDS INR 1.0 (0.9-1.3) APTT 30 D (26.4-36.2) SECONDS Sodium 144 (137-145) mmol/L Potassium 4.0 (3.4-5.1) mmol/L Chloride 107 (98-107) mmol/L Carbon Dioxide 30 (22-32) mmol/L BUN 24 H (9-20) mg/dL Creatinine 0.70 (0.66-1.25) mg/dL Estimated GFR > 60.0 (>60) mL/min BUN/Creatinine Ratio 34.3 H (6-22) Glucose 90 (70-100) mg/dL Calcium 9.4 (8.4-10.2) mg/dL Total Bilirubin 0.4 (0.2-1.3) mg/dL AST 19 (17-59) IU/L ALT 21 (<50) IU/L Alkaline Phosphatase 40 (38-126) U/L Total Creatine Kinase 75 (55-170) U/L CK-MB (CK-2) TNP CK-MB (CK-2) Rel Index TNP Troponin I < 0.012 (0.01-0.034) ng/mL Total Protein 7.1 (6.3-8.2) g/dL Albumin 4.4 (3.5-5.0) g/dL Globulin 2.7 (1.7-4.1) g/dL Albumin/Globulin Ratio 1.6 (1.0-2.8) Lipase 57 (23-300) U/L Discharge Plan Departure Patient Disposition: Left Without Being Seen Clinical Impression: Patient left after triage Discharge Date/Time: 01/02/20 12:45
== END 2020-01-02 12:45 | disposition left against medical advice (07) ==
PROVIDERS: Emergency Provider Emergency Medicine; PCP Internal Medicine
DX: R07.9 Chest pain, unspecified (principal)
CPT/HCPCS: 36415; 71045; 80053; 82550; 83690; 84484; 85025; 85610; 85730; 93005; 93010; 99283

== ENCOUNTER 2020-04-16 16:44 | Emergency (ER) | payer OTHER, SELFPAY ==
[2019-11-22 11:03] VITALS: BMI 26.6
[2020-04-16 17:02] VITALS: BP 116/72; PULSE 103; RESP 22; TEMP 36.4; O2SAT 100
--- NOTE | 2020-04-16 17:05 | DI.RAD.S_ITS ---
PROCEDURE: XR RIBS BI MIN 4V W CXR1V INDICATIONS: mult falls, bilat rib pain TECHNIQUE: 4 views of the bilateral ribs were acquired, along with a single view chest. COMPARISON: [facility], , XR CHEST 1V, 01/02/2020, 11:52. FINDINGS: Surgical changes and devices: Changes of median sternotomy for CABG Bones and chest wall: No fractures or dislocations. No suspicious bony lesions. Overlying soft tissues appear unremarkable. Lungs and pleura: No pleural effusions or pneumothorax. Lungs appear clear. Mediastinum: Mediastinal contours appear normal. Heart size is normal. IMPRESSION: No rib fracture or other acute process demonstrated. Dictated by: Manjinder Ward M.D. on 04/16/2020 at 17:25 Approved by: Manjinder Ward M.D. on 04/16/2020 at 17:27
--- NOTE | 2020-04-16 18:32 | ED.FALL ---
HPI - Fall General Chief Complaint: Fall Stated Complaint: Fell Last Night, Thinks Broke Rib Time Seen by Provider: 04/16/20 17:32 Source: patient Mode of arrival: Ambulatory Limitations: no limitations History of Present Illness HPI Narrative: 55-year-old male smoker with history of hyperlipidemia presents with a chief complaint of pinpoint tenderness on his left lower lateral rib after a fall yesterday. He states that he fell because of a new pair shoes he is wearing any tripped on them. He denies any head neck or back pain. He denies any extremity pain. He denies prodromal symptoms such as dizziness, weakness or lightheadedness. He states his pain is worse with motion and improves with rest. He denies any shortness of breath or cough MD complaint: fall Onset (ago): hour(s) Fall from: standing Fall witnessed: no Place fall occurred: home Loss of consciousness: none Prolonged down time: no Symptoms prior to fall: none Context: tripped/slipped Location of injury: chest Related Data Home Medications Medication Instructions Recorded Confirmed ibuprofen [Advil] 400 mg PO QID PRN 12/14/17 04/11/20 lisinopril 20 mg tablet 20 mg PO DAILY 07/15/18 04/11/20 aspirin 81 mg PO DAILY 08/13/19 04/11/20 spironolactone 12.5 mg PO DAILY 08/13/19 04/11/20 atorvastatin 80 mg tablet 80 mg PO BEDTIME 01/23/20 04/11/20 docosahexaenoic acid 200 mg capsule mg PO 01/23/20 04/11/20 gabapentin 100 mg capsule 400 mg PO TID cap 01/23/20 04/11/20 metoprolol succinate 25 mg capsule 25 mg PO DAILY 01/23/20 04/11/20 sprinkle, ext. release 24 hr cyclobenzaprine 5 mg tablet 5 mg PO TID PRN 04/11/20 04/11/20 Previous Rx's Medication Instructions Recorded furosemide 20 mg PO DAILY #14 tab 09/30/19 bupropion HCl 150 mg 24 hr tablet, 450 mg PO QAM #90 tab 01/23/20 extended release hydroxyzine HCl 25 mg tablet 50 mg PO Q6-8H PRN #180 tab 02/29/20 diazepam 5 mg tablet 5 mg PO BID PRN #60 tab 04/11/20 olanzapine 5 mg tablet 10 mg PO BEDTIME #60 tab 04/11/20 hydrocodone-acetaminophen 1 tab PO Q4-6H PRN #10 tab 04/16/20 lidocaine [Lidoderm] 1 patch TOP DAILY #15 each 04/16/20 Allergies Allergy/AdvReac Type Severity Reaction Status Date / Time No Known Drug Allergies Allergy Verified 04/11/20 15:07 Review of Systems Constitutional Constitutional: Denies chills, Denies fatigue, Denies fever(s), Denies frequent falls, Denies lethargy and Denies weakness Eyes Eyes: Denies change in vision, Denies eye discharge, Denies irritation and Denies loss of vision ENT Ears, Nose, Mouth, and Throat: Denies change in voice, Denies dizziness, Denies neck pain, Denies sore throat and Denies throat swelling Cardiovascular Cardiovascular: Denies chest pain, Denies irregular heart rhythm, Denies lightheadedness, Denies palpitations, Denies dyspnea, Denies dyspnea on exertion and Denies orthopnea Comments: chest wall pain Respiratory Respiratory: Denies cough, Denies dyspnea, Denies dyspnea on exertion and Denies wheezing Gastrointestinal Gastrointestinal: Denies abdominal pain, Denies change in bowel habits, Denies diarrhea, Denies nausea and Denies vomiting Musculoskeletal Musculoskeletal: Denies neck pain and Denies numbness Integumentary/Breasts Skin/Breast: Denies pruritus, Denies erythema, Denies rash and Denies wounds Neurologic Neurologic: Denies behavioral changes, Denies confusion, Denies dizziness, Denies frequent falls, Denies loss of vision, Denies numbness and Denies weakness Psychiatric Psychiatric: Denies anxiety, Denies behavioral changes, Denies confusion, Denies depression, Denies homicidal ideation and Denies suicidal ideation Endocrine Endocrine: Denies fatigue, Denies flushing and Denies palpitations Hematologic/Lymphatic Hematologic/Lymphatic: Denies easy bruising Allergic/Immunologic Allergic/Immunologic: Denies urticaria, Denies throat swelling and Denies wheezing Patient History Medical History Anxiety Coronary artery disease Discitis HTN (hypertension) 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 Extraoccular muscles are intact bilaterally. There is no subconjunctival hemorrhage or exudate. CHEST: Lungs are clear to auscultation bilaterally and free of wheezes, rales, or rhonchi. Heart rate is regular rhythm, there are no murmurs, clicks, rubs, or gallops. Pinpoint tenderness on left lateral lower rib. No external, obvious manifestation of injury such as contusion, abrasion edema or subcu emphysema ABD: Abdomen is soft and nontender. There is no guarding or rebound. Bowel sounds are normal in all 4 quadrants. There is no mass or organomegaly. EXT: Full painless ROM of all extremities with no loss of sensation or strength. SKIN: Warm, pink, and dry. No erythema or rash Initial Vital Signs Initial Vital Signs: Vital Signs Temperature 97.5 F L 04/16/20 17:02 Pulse Rate 103 H 04/16/20 17:02 Respiratory Rate 22 04/16/20 17:02 Blood Pressure 116/72 04/16/20 17:02 Pulse Oximetry 100 04/16/20 17:02 Course Orders Ordered: Discontinued Medications Hydrocodone Bitart/Acetaminophen (Hydrocodone/Acet 5/325 Prepack) 1 bottle MISC SEEINSTR ONE Stop: 04/16/20 18:56 Last Admin: 04/16/20 19:00 Dose: 1 bottle Documented by: JAVIER Lidocaine (Lidocaine Patch 1 Each Adh..Patch) 1 each TOP NOW ONE Stop: 04/16/20 18:56 Last Admin: 04/16/20 19:00 Dose: 1 each Documented by: JAVIER Vital Signs Vital signs: Vital Signs - 8 hr 04/16/20 17:02 Temperature 97.5 F L Pulse Rate 103 H Respiratory Rate 22 Blood Pressure 116/72 Pulse Oximetry 100 MDM - Fall Imaging Data Chest x-ray: Radiologist's Impression: [address] [id number] ReportSigned Patient: Fidel Erwin EMR#: [id number]: 1965Acct:[id number]/Sex: 55 / MDate of Service: 04/16/20Loc: EDAccession Number: [id number] Procedure: XR ribs BI min 4V w CXR1V Ordering Provider: Spencer Wolf D.O. PROCEDURE: XR RIBS BI MIN 4V W CXR1V INDICATIONS: mult falls, bilat rib pain TECHNIQUE: 4 views of the bilateral ribs were acquired, along with a single view chest. COMPARISON: [facility], CR, XR CHEST 1V, 01/02/2020, 11:52. FINDINGS: Surgical changes and devices: Changes of median sternotomy for CABG Bones and chest wall: No fractures or dislocations. No suspicious bony lesions. Overlying soft tissues appear unremarkable. Lungs and pleura: No pleural effusions or pneumothorax. Lungs appear clear. Mediastinum: Mediastinal contours appear normal. Heart size is normal. IMPRESSION: No rib fracture or other acute process demonstrated. Dictated by: Manjinder Ward M.D. on 04/16/2020 at 17:25 Approved by: Manjinder Ward M.D. on 04/16/2020 at 17:27 Discharge Plan Departure Patient Disposition: Home Clinical Impression: Contusion of rib Qualifiers: Encounter type: initial encounter Laterality: left Qualified Code(s): S20.212A - Contusion of left front wall of thorax, initial encounter Instructions: How to Prevent Falls Activity Restrictions/Additional Instructions: *You have been diagnosed with [ fall with rib contusion ] *What to do: *Take medications as directed *Follow up with your primary care provider in 2-3 days, call for an appointment. Let them know you were seen in the Emergency Department and that we ask that you be seen in follow up *Return to ER if you should have any new, worsening or concerning symptoms Prescriptions: New hydrocodone-acetaminophen 5-325 mg tablet 1 tab PO Q4-6H PRN (Reason: pain) Qty: 10 RF: 0 lidocaine [Lidoderm] 5 % adhesive patch,medicated 1 patch TOP DAILY Qty: 15 RF: 0 No [facility]-3 DHA 200 mg capsule PO RF: 0 atorvastatin 80 mg tablet 80 mg PO BEDTIME RF: 0 metoprolol succinate 25 mg capsule,sprinkle,ER 24hr 25 mg PO DAILY RF: 0 bupropion HCl 150 mg tablet extended release 24 hr 450 mg PO QAM Qty: 90 RF: 3 hydroxyzine HCl 25 mg tablet 50 mg PO Q6-8H PRN (Reason: Anxiety) Qty: 180 RF: 3 cyclobenzaprine 5 mg tablet 5 mg PO TID PRNRF: 0 olanzapine 5 mg tablet 10 mg PO BEDTIME Qty: 60 RF: 3 diazepam 5 mg tablet 5 mg PO BID PRN (Reason: anxiety) Qty: 60 RF: 1 aspirin 81 mg Tablet,Chewable 81 mg PO DAILY RF: 0 spironolactone 25 mg tablet 12.5 mg PO DAILY RF: 0 gabapentin 100 mg capsule 400 mg PO TID RF: 0 furosemide 20 mg tablet 20 mg PO DAILY Qty: 14 RF: 0 ibuprofen [Advil] 200 mg Tablet 400 mg PO QID PRN (Reason: Pain (Scale Score 1-3)) RF: 0 lisinopril 20 mg tablet 20 mg PO DAILY RF: 0 Referrals: Bossman Shah DO [Primary Care Provider] -
[2020-04-16] MEDS: LIDOCAINE PATCH 1 EACH ADH..PATCH TOP (19:00)
[2020-04-16] MEDS: HYDROCODONE/ACET 5/325 PREPACK 1 BOTTLE MISC (19:00)
[2020-04-16 19:03] VITALS: BP 158/72; PULSE 70; RESP 18; O2SAT 99
== END 2020-04-16 19:05 | disposition home or self-care (01) ==
PROVIDERS: Emergency Provider Emergency Medicine; PCP Internal Medicine
DX: S20.212A Contusion of left front wall of thorax, initial encounter (principal); W19.XXXA Unspecified fall, initial encounter; E78.5 Hyperlipidemia, unspecified; I25.10 Atherosclerotic heart disease of native coronary artery without angina pectoris; I10 Essential (primary) hypertension
CPT/HCPCS: 71111; 99283

== ENCOUNTER 2020-07-12 13:30 | Outpatient (RCR) | payer OTHER, SELFPAY ==
[2019-11-22 11:03] VITALS: BMI 26.6
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
--- NOTE | 2020-06-04 10:50 | PT-OP ANOTE ---
Cx due to inclement weather.
--- NOTE | 2020-06-07 14:00 | PT-OP ANOTE ---
DNS, message left for next appt day/time.
--- NOTE | 2020-06-12 14:10 | PT-OP ANOTE ---
Pt cancelled due to no transportation
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
--- NOTE | 2020-07-03 13:15 | PT-OP ANOTE ---
Pt did not show for today's appt. SEISMIC INTERPRETER left a message regarding missed appt, requested to call us back for feedback on progress/ response to last tx on 06/14/20 and reminding of next scheduled appt 07/12/20 with his PT Dorinda. Upon review of scheduled appts and discussion with PT after left voice message, PT stated recommended he cancel some appts after initial eval to decrease from 2x/wk to 1x/wk to help support financial challenges and difficulty with transportation while trying to still give support for progression.
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
--- NOTE | 2020-08-02 16:47 | PT-OP ANOTE ---
Same day cancel, pt not able to make it.
--- NOTE | 2020-08-02 16:51 | PT-OP ANOTE ---
Per phone conversation the pt wants to stop therapy because he is feeling better and the pain is tolerable.
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
== END 2020-08-06 07:59 | disposition home or self-care (01) ==
LOC: PHYS 13:30
PROVIDERS: PCP Internal Medicine; Referring Provider Internal Medicine; Visit Provider Internal Medicine
DX: M54.2 Cervicalgia (principal); R29.898 Other symptoms and signs involving the musculoskeletal system; M54.16 Radiculopathy, lumbar region; M51.36 Other intervertebral disc degeneration, lumbar region
CPT/HCPCS: 97110; 97162

== ENCOUNTER 2020-07-20 19:28 | Inpatient (IN) | payer OTHER, SELFPAY ==
[2019-11-22 11:03] VITALS: BMI 26.6
--- NOTE | 2020-07-20 19:28 | DI.CT.S_ITS ---
PROCEDURE: CT HEAD/BRAIN WO CON INDICATIONS: Fall with hitting head on blood thinners TECHNIQUE: Noncontrast 4.5 mm thick angled axial sections acquired from the foramen magnum to the vertex, with coronal and sagittal reformats. For radiation dose reduction, the following was used: automated exposure control, adjustment of mA and/or kV according to patient size. COMPARISON: [facility], CT, CT HEAD/BRAIN WO CON, 08/13/2019, 10:30. FINDINGS: Image quality: Excellent. Brain: No acute intracranial hemorrhage, mass, or mass effect. A large area of encephalomalacia is redemonstrated in the right frontal lobe consistent with sequelae of a prior infarct. There is associated mild ex vacuole dilatation of the frontal horn of the right lateral ventricle. Skull and face: There is mild left periorbital soft tissue swelling. Calvarium and visualized facial bones are intact, without suspicious lesions. Sinuses: Visualized sinuses and mastoids are clear. IMPRESSION: 1. No acute intracranial abnormality. 2. Large region of right frontal encephalomalacia redemonstrated consistent with sequelae of a prior infarct. Dictated by: Vishnu Carter M.D. on 07/20/2020 at 19:54 Approved by: Vishnu Carter M.D. on 07/20/2020 at 19:57
[2020-07-20 19:30] VITALS: BP 122/84; PULSE 71; RESP 15; TEMP 37.1; O2SAT 96; BMI 28.2
[2020-07-20 19:31] VITALS: BP 111/57; PULSE 72; RESP 18; O2SAT 96
[2020-07-20 20:04] VITALS: BP 132/60; PULSE 76; RESP 22; O2SAT 97
[2020-07-20 20:31] LABS: Add Manual Diff / Slide Review NO; Basophils Absolute Auto 0 /uL (0-100); Basophils Percent Auto 0.2 % (0-2); Eosinophils Absolute Auto 0 /uL (0-450); Eosinophils Percent Auto 0.1 % (2-4); Hematocrit 36.7 % (41-53); Hemoglobin 12.3 g/dL (13.5-17.5); Lymphocytes Absolute Auto 1000 /uL (1100-4500); Lymphocytes Percent Auto 6.6 % (25-40); Mean Corpuscular HGB Conc 33.4 % (30-36); Mean Corpuscular Hemoglobin 29.5 PG (26-34); Mean Corpuscular Volume 88.2 fL (80-100); Monocytes Absolute Auto 1100 /uL (0-900); Monocytes Percent Auto 7.5 % (3-14); Neutrophils Absolute Auto 13100 /uL (1500-7000); Neutrophils Percent Auto 85.6 % (50-75); Platelet Count 223 X10^3/uL (150-400); Red Blood Cell Count 4.17 X10^6/uL (4.5-5.9); Red Cell Distribution Width 12.5 % (11.6-14.8); White Blood Cell Count 15.3 X10^3/uL (4.5-11.0)
[2020-07-20 20:38] LABS: Alanine Aminotransferase 42 IU/L (<50); Albumin 4.9 g/dL (3.5-5.0); Albumin Globulin Ratio 1.8 (1.0-2.8); Alkaline Phosphatase 46 U/L (38-126); Aspartate Aminotransferase 134 IU/L (17-59); BUN Creatinine Ratio 29.8 (6-22); Bilirubin Total 0.7 mg/dL (0.2-1.3); Blood Urea Nitrogen 28 mg/dL (9-20); Carbon Dioxide 24 mmol/L (22-32); Chloride 104 mmol/L (98-107); Estimated Glomerular Filt Rate > 60.0 mL/min (>60); Globulin 2.8 g/dL (1.7-4.1); Glucose 99 mg/dL (70-100); HEMOLYSIS 36 (0-50); Potassium 3.9 mmol/L (3.4-5.1); Sodium 140 mmol/L (137-145); Total Protein 7.7 g/dL (6.3-8.2)
[2020-07-20] MEDS: SODIUM CHLORIDE 0.9% 1,000 ML 150 ML IV (20:40)
[2020-07-20 20:56] LABS: UR Morphine/Opiate cutoff 300 Negative (Negative); Ur Creatinine Normal (Normal); Ur Specific Gravity Normal (Normal); Urine Amphetamines Negative (Negative); Urine Barbiturates Negative (Negative); Urine Benzodiazepines Negative (Negative); Urine Cocaine Negative (Negative); Urine MDMA Negative (Negative); Urine Methadone Negative (Negative); Urine Methamphetamines Negative (Negative); Urine Oxycodone Negative (Negative); Urine Phencyclidine Negative (Negative); Urine Tetrahydrocannabinol Negative (Negative); Urine Tricyclic Antidepressant Positive (Negative); Urine pH Normal (Normal)
[2020-07-20 21:06] LABS: INR 1.1 (0.9-1.3); Prothrombin Time 12.2 SECONDS (10.1-12.7)
[2020-07-20 21:09] LABS: PTT Partial Thromboplastin Tim 31 SECONDS (26.4-36.2)
--- NOTE | 2020-07-20 21:34 | ED.NEUROSD ---
HPI - Neuro Symptoms/Deficit General Chief Complaint: Neuro Symptoms/Deficit Stated Complaint: Weakness Time Seen by Provider: 07/20/20 19:42 Source: patient Mode of arrival: EMS Limitations: no limitations History of Present Illness HPI Narrative: This is a 55-year-old male brought via EMS for facial droop and generalized weakness. Per EMS there was concern from patients ex-girlfriend that he had something going on and suggested stroke. Last known normal is unclear but greater than 12 hours. Patient had a fall yesterday and today and falls frequently. He is complaining of left-sided pain. He states he did hit the left side of his face and has some redness which he states is improving as well as some swelling. Patient's last known normal is unclear, I have seen him in the past and he had left sided weakness and facial droop and it is noted in the patient chart as having permanent left sided deficits. Patient has been seen by myself with similar symptoms in the past. He has known encephalomalacia. Patient denies any pain other than in his left arm and his left cheek currently. He denies any recent fevers. No chest pain or shortness of breath. No nausea, no vomiting. He describes some mild abdominal discomfort but denies pain. And denies any pain on exam. He denies any urinary issues. He states when asked if he has new weakness that he has been falling a lot but is not actually very clear about if he has new weakness in his left arm. Patient, polysubstance abuse although he states he is using tobacco and is not drinking alcohol or using any recreational drugs. He also has a history of stroke with residual left-sided weakness and facial droop according to old chart, CAD status post CABG with a mitral valve repair, hypertension, history of osteomyelitis and personality disorder. On Anticoagulants: Yes (asa) Related Data Home Medications Medication Instructions Recorded Confirmed ibuprofen [Advil] 400 mg PO QID PRN 12/14/17 06/25/20 lisinopril 20 mg tablet 20 mg PO DAILY 07/15/18 06/25/20 aspirin 81 mg PO DAILY 08/13/19 06/25/20 spironolactone 12.5 mg PO DAILY 08/13/19 06/25/20 atorvastatin 80 mg tablet 80 mg PO BEDTIME 01/23/20 06/25/20 docosahexaenoic acid 200 mg capsule mg PO 01/23/20 06/25/20 gabapentin 100 mg capsule 400 mg PO TID cap 01/23/20 06/25/20 metoprolol succinate 25 mg capsule 25 mg PO DAILY 01/23/20 06/25/20 sprinkle, ext. release 24 hr cyclobenzaprine 5 mg tablet 5 mg PO TID PRN 04/11/20 06/25/20 Previous Rx's Medication Instructions Recorded furosemide 20 mg PO DAILY #14 tab 09/30/19 hydroxyzine HCl 25 mg tablet 50 mg PO Q6-8H PRN #180 tab 02/29/20 hydrocodone-acetaminophen 1 tab PO Q4-6H PRN #10 tab 04/16/20 lidocaine [Lidoderm] 1 patch TOP DAILY #15 each 04/16/20 bupropion HCl 150 mg 24 hr tablet, 450 mg PO QAM #90 tab 05/23/20 extended release olanzapine 5 mg tablet 15 mg PO BEDTIME #90 tab 05/23/20 diazepam 5 mg tablet 5 mg PO TID PRN #90 tab 07/16/20 Allergies Allergy/AdvReac Type Severity Reaction Status Date / Time No Known Drug Allergies Allergy Verified 07/20/20 19:33 Review of Systems Review of Systems ROS Unobtainable: All systems reviewed & are unremarkable except as noted in HPI and below Hematologic/Lymphatic On Anticoagulants: Yes (asa) Patient History Medical History (Updated 07/21/20 @ 02:37 by LUCILLE Hollis-VENU) Anxiety Bipolar II disorder, mild, depressed, with anxious distress Coronary artery disease Discitis HTN (hypertension) 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) Surgical History (Updated 07/21/20 @ 02:37 by LUCILLE Hollis-VENU) H/O valvuloplasty S/P CABG x 4 Family History (Updated 07/21/20 @ 05:42 by LUCILLE Hollis-VENU) Grandfather Heart attack Family/Other Heart attack Social History household members: family Smoking Status: Current every day smoker alcohol intake: former Smoking Status: Current every day smoker tobacco type: cigarettes alcohol intake frequency: 0-2 drinks per day Substance Use Type: does not use Exam Narrative Exam Narrative: GEN: Disheveled male, older than appeared stated age, alert and oriented, patient appears to be in mild distress. HEENT: Atraumatic, pupils are equal round reactive to light, extraocular movements are intact, nares are clear, TMs are clear with no fluid, there is no conjunctival pallor. Throat is clear without any exudates, erythema, tonsillar enlargement or uvular deviation, patient does have left-sided facial droop particularly of the left cheek, he also has some swelling of the left cheek erythema with healing area of abrasion that is about 4 x 3 cm. There is good granulation tissue with no discharge or drainage or foul odor. HEART: Regular rate and rhythm without murmur, clicks, rubs. Pulses are equal in upper and lower extremities LUNGS:Lungs clear to auscultation, no wheezes, rales, crackles, chest moves symmetrically ABD:bowel sounds normal, soft, non-tender, no guarding, rebound, rigidity, no masses noted, no hepatosplenomegaly :No CVA tenderness MSCL: Non-tender, no muscle atrophy, muscles strength 4/5 upper left extremity, on leg raise 5/5 lower extremities left, 5/5 upper and lower right. Patient has complaint of pain of the left upper extremity but is not reproducible with palpation. He has full range of motion no obvious ecchymosis or deformity. NEURO:CN 2-12 intact, sensation normal, reflexes 2/4 upper and lower extremities. finger nose finger test normal on right, patient does have difficulty on the left upper extremity, bilateral heel colon test normal, SKIN: Patient's left cheek please note in above history. No other skin changes appreciated Initial Vital Signs Initial Vital Signs: Vital Signs Temperature 98.8 F 07/20/20 19:30 Pulse Rate 71 07/20/20 19:30 Respiratory Rate 15 07/20/20 19:30 Blood Pressure 122/84 07/20/20 19:30 Pulse Oximetry 96 07/20/20 19:30 Scores NIH Stroke Scale Level of Conciousness: Alert, keenly responsive Ask month/age: Answers both questions correctly. Open/close eyes, close hand: Performs both tasks correctly Best gaze horizontal: Normal Visual estrella: No visual loss Facial palsy: Partial paralysis, total or near total paralysis of lower face Left arm drift: No drift for full 10 sec Right arm drift: Drifts down, not to bed Left leg drift: No drift for full 5 sec Right leg drift: No drift for full 5 sec Limb ataxia: Present in one limb Sensory on face/arms/legs: Normal, no sensory loss Best language: No aphasia, normal Dysarthria: Normal Extinction or inattention: No abnormality Total NIH Stroke scale score: 4 Course Orders Ordered: ED Orders 07/21/20 00:43 COVID19 - ADMIT ([facility] swab/PCR) Stat Acetaminophen (Acetaminophen 325 Mg Tablet) 650 mg PO Q6HR PRN PRN Reason: Fever Al Hydrox/Mg Hydrox/Simethicone (Mag Hydrox/Alum/Simeth 30 Ml Udc) 30 ml PO Q6HR PRN PRN Reason: Dyspepsia Aspirin (Aspirin Ec 325 Mg Tablet) 325 mg PO DAILY LEONA Clopidogrel Bisulfate (Clopidogrel 75 Mg Tablet) 75 mg PO DAILY LEONA Docusate Sodium (Docusate 100 Mg Capsule) 100 mg PO BID LEONA Sodium Chloride (Normal Saline 0.9%) 1,000 mls @ 150 mls/hr IV CONT LEONA Last Admin: 07/21/20 04:32 Dose: 150 mls/hr Documented by: Infusion: 07/21/20 04:09 Dose: 150 mls/hr Documented by: Infusion: 07/21/20 03:30 Dose: 150 mls/hr Documented by: Infusion: 07/21/20 02:41 Dose: 0 mls/hr Documented by: Admin: 07/20/20 20:40 Dose: 150 mls/hr Documented by: TYRELL Naloxone HCl (Naloxone 0.4 Mg/Ml Vial) 0.2 mg IV Q2MIN PRN PRN Reason: Opiate Reversal Ondansetron HCl (Ondansetron 4 Mg Odt) 4 mg PO Q8HR PRN PRN Reason: Nausea And Vomiting Sennosides (Sennosides 8.6 Mg Tablet) 17.2 mg PO BEDTIME LEONA Discontinued Medications Clindamycin Phosphate (Cleocin) 600 mg in 50 mls @ 50 mls/hr IV NOW ONE Stop: 07/21/20 01:34 Last Infusion: 07/21/20 02:41 Dose: 0 mls/hr Documented by: Admin: 07/21/20 01:40 Dose: 50 mls/hr Documented by: TYRELL Consultations Consultation #1: [facility] Donis, accepts for observation. Possible TIA, patient has known CVA with known left sided deficit. Unclear if any new changes. Patient unable to ambulate safely in the department. Started on antibiotics for facial cellulitis after fall and abrasion on side. Head CT, EKG and labs do not sure clear cause of symptoms. Time: 02:02 Vital Signs Vital signs: Vital Signs - 8 hr 07/20/20 23:05 07/21/20 01:56 07/21/20 02:01 Pulse Rate 77 75 79 Respiratory Rate 20 18 18 Blood Pressure 141/78 H 132/66 137/61 Pulse Oximetry 98 97 MDM - Neuro Symptoms/Deficit Lab Data Attestation: I reviewed the patient's lab results. Result diagrams: 07/21/20 05:03 07/21/20 05:03 Labs: Lab Results 07/20/20 07/20/20 07/20/20 Range/Units 19:24 19:24 19:24 WBC 15.3 H (4.5-11.0) X10^3/uL RBC 4.17 L (4.5-5.9) X10^6/uL Hgb 12.3 L (13.5-17.5) g/dL Hct 36.7 L (41-53) % MCV 88.2 (80-100) fL MCH 29.5 (26-34) PG MCHC 33.4 (30-36) % RDW 12.5 (11.6-14.8) % Plt Count 223 (150-400) X10^3/uL Neut % (Auto) 85.6 H (50-75) % Lymph % (Auto) 6.6 L (25-40) % Noble % (Auto) 7.5 (3-14) % Eos % (Auto) 0.1 L (2-4) % Baso % (Auto) 0.2 (0-2) % Neut # (Auto) 77630 H (9638-1518) /uL Lymph # (Auto) 1000 L (1504-3108) /uL Noble # (Auto) 1100 H (0-900) /uL Eos # (Auto) 0 (0-450) /uL Baso # (Auto) 0 (0-100) /uL PT (10.1-12.7) SECONDS INR (0.9-1.3) APTT (26.4-36.2) SECONDS Sodium 140 (137-145) mmol/L Potassium 3.9 (3.4-5.1) mmol/L Chloride 104 (98-107) mmol/L Carbon Dioxide 24 (22-32) mmol/L BUN 28 H (9-20) mg/dL Creatinine 0.94 (0.66-1.25) mg/dL Estimated GFR > 60.0 (>60) mL/min BUN/Creatinine Ratio 29.8 H (6-22) Glucose 99 (70-100) mg/dL Calcium 10.0 (8.4-10.2) mg/dL Magnesium 2.2 (1.6-2.3) mg/dL Total Bilirubin 0.7 (0.2-1.3) mg/dL AST 134 H (17-59) IU/L ALT 42 (<50) IU/L Alkaline Phosphatase 46 (38-126) U/L Troponin I < 0.012 (0.01-0.034) ng/mL Total Protein 7.7 (6.3-8.2) g/dL Albumin 4.9 (3.5-5.0) g/dL Globulin 2.8 (1.7-4.1) g/dL Albumin/Globulin Ratio 1.8 (1.0-2.8) U Opiates 300ng/mL cut (Negative) Ur Oxycodone Screen (Negative) Urine Methadone Screen (Negative) Ur Barbiturates Screen (Negative) U Tricyclic Antidepress (Negative) Ur Phencyclidine Scrn (Negative) Ur Amphetamines Screen (Negative) U Methamphetamines Scrn (Negative) Ur MDMA Scrn (Ecstasy) (Negative) U Benzodiazepines Scrn (Negative) Urine Cocaine Screen (Negative) U Marijuana (THC) Screen (Negative) SARS-CoV-2 (PCR) (Negative) 07/20/20 07/20/20 07/21/20 Range/Units 20:46 20:47 00:43 WBC (4.5-11.0) X10^3/uL RBC (4.5-5.9) X10^6/uL Hgb (13.5-17.5) g/dL Hct (41-53) % MCV (80-100) fL MCH (26-34) PG MCHC (30-36) % RDW (11.6-14.8) % Plt Count (150-400) X10^3/uL Neut % (Auto) (50-75) % Lymph % (Auto) (25-40) % Noble % (Auto) (3-14) % Eos % (Auto) (2-4) % Baso % (Auto) (0-2) % Neut # (Auto) (1228-6485) /uL Lymph # (Auto) (8069-2375) /uL Noble # (Auto) (0-900) /uL Eos # (Auto) (0-450) /uL Baso # (Auto) (0-100) /uL PT 12.2 (10.1-12.7) SECONDS INR 1.1 (0.9-1.3) APTT 31 (26.4-36.2) SECONDS Sodium (137-145) mmol/L Potassium (3.4-5.1) mmol/L Chloride (98-107) mmol/L Carbon Dioxide (22-32) mmol/L BUN (9-20) mg/dL Creatinine (0.66-1.25) mg/dL Estimated GFR (>60) mL/min BUN/Creatinine Ratio (6-22) Glucose (70-100) mg/dL Calcium (8.4-10.2) mg/dL Magnesium (1.6-2.3) mg/dL Total Bilirubin (0.2-1.3) mg/dL AST (17-59) IU/L ALT (<50) IU/L Alkaline Phosphatase (38-126) U/L Troponin I (0.01-0.034) ng/mL Total Protein (6.3-8.2) g/dL Albumin (3.5-5.0) g/dL Globulin (1.7-4.1) g/dL Albumin/Globulin Ratio (1.0-2.8) U Opiates 300ng/mL cut Negative (Negative) Ur Oxycodone Screen Negative (Negative) Urine Methadone Screen Negative (Negative) Ur Barbiturates Screen Negative (Negative) U Tricyclic Antidepress Positive H (Negative) Ur Phencyclidine Scrn Negative (Negative) Ur Amphetamines Screen Negative (Negative) U Methamphetamines Scrn Negative (Negative) Ur MDMA Scrn (Ecstasy) Negative (Negative) U Benzodiazepines Scrn Negative (Negative) Urine Cocaine Screen Negative (Negative) U Marijuana (THC) Screen Negative (Negative) SARS-CoV-2 (PCR) Negative (Negative) Urine Dip Bedside Urine Glucose Negative Bedside Urine Bilirubin - Negative Bedside Urine Ketone - Negative Urine Specific [place] 1.030 Bedside Urine Occult Blood - Negative Bedside Urine pH 6.0 Bedside Urine Protein +/- 15 Bedside Urine Urobilinogen - Negative Bedside Urine Nitrite - Negative Bedside Urine Leukocytes - Negative Esterase Imaging Data CT scan - head: Radiologist's Impression: [address] [id number] Scan ReportSigned Patient: Fidel Erwin EMR#: [id number]: 1965Acct:[id number]/Sex: 55 / MDate of Service: 07/20/20Loc: EDAccession Number: [id number] Procedure: CT head/brain wo con Ordering Provider: Rody Fraire D.O. PROCEDURE: CT HEAD/BRAIN WO CON INDICATIONS: Fall with hitting head on blood thinners TECHNIQUE: Noncontrast 4.5 mm thick angled axial sections acquired from the foramen magnum to the vertex, with coronal and sagittal reformats. For radiation dose reduction, the following was used: automated exposure control, adjustment of mA and/or kV according to patient size. COMPARISON: [facility], CT, CT HEAD/BRAIN WO CON, 08/13/2019, 10:30. FINDINGS: Image quality: Excellent. Brain: No acute intracranial hemorrhage, mass, or mass effect. A large area of encephalomalacia is redemonstrated in the right frontal lobe consistent with sequelae of a prior infarct. There is associated mild ex vacuole dilatation of the frontal horn of the right lateral ventricle. Skull and face: There is mild left periorbital soft tissue swelling. Calvarium and visualized facial bones are intact, without suspicious lesions. Sinuses: Visualized sinuses and mastoids are clear. IMPRESSION: 1. No acute intracranial abnormality. 2. Large region of right frontal encephalomalacia redemonstrated consistent with sequelae of a prior infarct. Dictated by: Vishnu Carter M.D. on 07/20/2020 at 19:54 Approved by: Vishnu Carter M.D. on 07/20/2020 at 19:57 [facility] Narrative Medical decision making narrative: This is a 55-year-old male sent for concern for possible stroke although patient has known prior stroke with left-sided residual weakness noted by myself on past valves as well as prior hospitalizations. Patient does appreciate some weakness. He does have some redness and swelling of his cheek, he is only mildly tender to palpation so my suspicion for fracture is low he states it is improving but his white count is elevated here today. Would plan to treat patient at least with oral antibiotic for a cellulitis. Patient otherwise does not have any clear lab changes that are new. CT redemonstrates encephalomalacia in the right frontal region consistent with his left-sided weakness. His labs show baseline anemia, BUN of 23 with no other major electrolyte abnormalities. AST is elevated 134. Rapid drug screen is negative. Covid swab is negative. Patient unable to stand or ambulate safely in the department this evening and plan for observation with PRERNA Donis overnight. Patient is agreeable. Discharge Plan Departure Patient Disposition: Admitted as Observation Clinical Impression: TIA (transient ischemic attack), Cellulitis of face Admit Date/Time: 07/21/20 02:05 Admit Provider: Priscila Donis
[2020-07-20 23:05] VITALS: BP 141/78; PULSE 77; RESP 20; O2SAT 98
--- NOTE | 2020-07-20 23:56 | PC.NURSE ---
failed ambulation trial; pt could barely support himself just standing up, constantly drifting backwards
[2020-07-21] VITALS (21 sets, daily range): BP systolic 99–139; BP diastolic 48–102; PULSE 75–117; RESP 18–36; TEMP 36.2–37.4; O2SAT 96–98; BMI 26.3
[2020-07-21] MEDS: CLINDAMYCIN 600 MG/50 ML PIGGYBACK 50 MG IV (01:40)
--- NOTE | 2020-07-21 01:56 | PC.NURSE ---
ex girlfriend Robyn Hayes [phone] would be the one to pick patient up at d/c
[2020-07-21 02:05] LABS: COVID19 - ADMIT (NP swab/PCR) Negative (Negative)
--- NOTE | 2020-07-21 02:29 | DI.MRI.S_ITS ---
PROCEDURE: MR STROKE Pre- and post-contrast brain MRI, non-contrast brain MR angiogram, pre- and postcontrast neck MR angiogram INDICATIONS: Stroke TECHNIQUE: Motion degradation is present throughout much of the exam. Brain: Noncontrast axial T1 spin echo, axial T2 fast spin echo, sagittal and axial FLAIR, coronal T2 fast spin echo, axial gradient echo, axial diffusion and ADC through the brain. After the administration of contrast, axial 3D VIBE of the cranial vasculature and brain. Brain MRA: Non-contrast 3-D time of flight MR angiogram, with multiple pmyhyza-ggogbreow-dqjxlpzfau (MIP) reformats performed. Neck MRA: Axial and sagittal TruFISP through the neck. Coronal dynamic MR angiogram during administration of contrast in the arterial and venous phases, with 3-dimenstional kjniyss-emgzhmltp-gopbajryav (MIP) reformats constructed from subtraction images. COMPARISON: [facility], , MR STROKE, 12/23/2018, 14:45. FINDINGS: Image quality: Excellent. BRAIN: CSF spaces: Ventricles are normal in shape with prominent from age related and remote right MCA territory infarct related volume loss. Basal cisterns are patent. No extra-axial fluid collections. Brain: No intracranial bleeds or mass effects. Large region of encephalomalacia in the right frontal lobe is again seen consistent with remote infarction. There are scattered T2 FLAIR hyperintensities in the periventricular and subcortical white matter likely the sequela of chronic small vessel ischemic changes. Diffusion weighted images show no acute ischemic insults. Brainstem appears normal. Normal intravascular flow voids are present. No abnormal intracranial enhancement. Skull and face: Calvarial marrow signal is normal. Orbits appear normal. Sinuses: Sinuses and mastoids are clear. BRAIN MR ANGIOGRAM: Anterior circulation: There is nonvisualization of the internal carotid arteries at the skull base. The flow within the paired anterior cerebral arteries is normal and symmetric. The flow within the middle cerebral arteries is normal and symmetric. The anterior communicating artery is seen. No definite stenoses, occlusions, or aneurysms. Posterior circulation: The visualized portions of the vertebral arteries demonstrate normal caliber, and join to form a normal appearing basilar artery. The flow within the posterior cerebral arteries is normal and symmetric. No stenoses, occlusions, or aneurysms. NECK MR ANGIOGRAM: Carotids: Great vessels demonstrate a conventional anatomy as they arise from the aortic arch. The origins of the common carotid arteries appear patent. The calibers and courses of both common carotid arteries are unremarkable. The bifurcation is not well visualized and the cervical portions of the internal carotid arteries are not well visualized. Posterior circulation: The origins of the vertebral arteries appear patent. More superior portions of both vertebral arteries demonstrate normal course and caliber, and join to form a normal appearing basilar artery. Miscellaneous: Subclavian arteries appear patent. Pre-contrast images through the neck show no soft tissue abnormalities. IMPRESSION: BRAIN MRI: No acute ischemia. Right frontal lobe encephalomalacia from remote right middle cerebral artery territory infarct. BRAIN AND NECK MR ANGIOGRAM: Limited by patient motion with poor visualization of the internal carotid arteries at the skull base which may be secondary to high-grade stenosis or occlusion. Given the patient motion, CT angiography of the head and neck may provide better detail in assessing severity of stenotic/occlusive disease. Dictated by: Yoel Cuellar M.D. on 07/21/2020 at 9:30 Approved by: Yoel Cuellar M.D. on 07/21/2020 at 9:48
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
[2020-07-21 02:44] LABS: Magnesium 2.2 mg/dL (1.6-2.3)
[2020-07-21 02:56] LABS: Troponin I < 0.012 ng/mL (0.01-0.034)
[2020-07-21] MEDS: SODIUM CHLORIDE 0.9% 1,000 ML 150 ML IV (04:32)
[2020-07-21 05:31] LABS: Add Manual Diff / Slide Review NO; Basophils Absolute Auto 0 /uL (0-100); Basophils Percent Auto 0.2 % (0-2); Eosinophils Absolute Auto 100 /uL (0-450); Eosinophils Percent Auto 0.6 % (2-4); Hematocrit 33.8 % (41-53); Hemoglobin 11.7 g/dL (13.5-17.5); Lymphocytes Absolute Auto 1000 /uL (1100-4500); Lymphocytes Percent Auto 10.2 % (25-40); Mean Corpuscular HGB Conc 34.5 % (30-36); Mean Corpuscular Hemoglobin 30.5 PG (26-34); Mean Corpuscular Volume 88.6 fL (80-100); Monocytes Absolute Auto 500 /uL (0-900); Monocytes Percent Auto 5.6 % (3-14); Neutrophils Absolute Auto 8000 /uL (1500-7000); Neutrophils Percent Auto 83.4 % (50-75); Platelet Count 171 X10^3/uL (150-400); Red Blood Cell Count 3.81 X10^6/uL (4.5-5.9); Red Cell Distribution Width 12.4 % (11.6-14.8); White Blood Cell Count 9.6 X10^3/uL (4.5-11.0)
[2020-07-21 05:41] LABS: INR 1.1 (0.9-1.3); Prothrombin Time 12.6 SECONDS (10.1-12.7)
[2020-07-21 05:47] LABS: BUN Creatinine Ratio 25.8 (6-22); Blood Urea Nitrogen 23 mg/dL (9-20); Calcium 9.2 mg/dL (8.4-10.2); Carbon Dioxide 25 mmol/L (22-32); Chloride 107 mmol/L (98-107); Cholesterol 111 mg/dL (140-199); Estimated Glomerular Filt Rate > 60.0 mL/min (>60); Glucose 118 mg/dL (70-100); HDL Cholesterol 36 mg/dL (40-60); HEMOLYSIS < 15 (0-50); LDL Cholesterol Calculated 51 mg/dL (<100); Potassium 3.6 mmol/L (3.4-5.1); Sodium 140 mmol/L (137-145); Triglycerides 120 mg/dL (35-150)
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
[2020-07-21] MEDS: LORazepam 1 MG TABLET PO (07:38)
[2020-07-21] MEDS: ACETAMINOPHEN 325 MG TABLET 650 MG PO (09:08)
[2020-07-21] MEDS: DOCUSATE 100 MG CAPSULE PO (09:08)
[2020-07-21] MEDS: CLOPIDOGREL 75 MG TABLET PO (09:08)
[2020-07-21] MEDS: ASPIRIN EC 325 MG TABLET PO (09:08)
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
--- NOTE | 2020-07-21 14:59 | CM.IDA ---
Initial DCP Assessment Note Patient is a 55 yo male, resident of [place]. Patient presents via EMS via facial droop and generalized weakness. Brain MRI done today does not show acute CVA. Patient is currently observation status. PMH includes polysubstance abuse (states no longer using), stroke, CAD, HTN, Osteo and psychiatric illness to include Bipolar II Disorder, mild, depressed, w/ anxiety PCP: Bossman Shah Payer: Pamela RAMIREZ Met w/patient for a brief visit, he was eating his lunch. Patient A+O. 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 Patient states he would like to return home upon DC, states his ex girlfriend Robyn Hayes [phone] helps him out at home, patient cannot tell me how often he sees Robyn or what she helps him with. Patient is established w/psychiatrist Dr Mcgowan, he cannot recall when he last saw Dr mcgowan. Upon review of chart notes this afternoon, PT/OT have assessed and are recommending SNF before return home. Patient has Pamela RAMIREZ, unsure whether they are open over the weekend ? Will follow closely and review DCP options w/patient, will attempt SNF if patient agreeable...SNF bed will need to be secured and Pamela schneider secured JW
[2020-07-21] MEDS: LORazepam 2 MG/ML INJ (16:02)
[2020-07-21] MEDS: LORazepam 2 MG/ML INJ 4 MG (16:20)
[2020-07-21 17:15] LABS: Ammonia (NH3) < 9 umol/L (9-30); BUN Creatinine Ratio 30.9 (6-22); Blood Urea Nitrogen 29 mg/dL (9-20); Calcium 9.2 mg/dL (8.4-10.2); Carbon Dioxide 24 mmol/L (22-32); Chloride 110 mmol/L (98-107); Estimated Glomerular Filt Rate > 60.0 mL/min (>60); Glucose 87 mg/dL (70-100); HEMOLYSIS < 15 (0-50); Potassium 4.2 mmol/L (3.4-5.1); Sodium 144 mmol/L (137-145)
[2020-07-21 17:29] LABS: Add Manual Diff / Slide Review NO; Basophils Absolute Auto 0 /uL (0-100); Basophils Percent Auto 0.4 % (0-2); Eosinophils Absolute Auto 100 /uL (0-450); Eosinophils Percent Auto 1.6 % (2-4); Hematocrit 34.3 % (41-53); Hemoglobin 11.6 g/dL (13.5-17.5); Lymphocytes Absolute Auto 1400 /uL (1100-4500); Lymphocytes Percent Auto 16.5 % (25-40); Mean Corpuscular Hemoglobin 30.2 PG (26-34); Mean Corpuscular Volume 88.7 fL (80-100); Monocytes Absolute Auto 600 /uL (0-900); Monocytes Percent Auto 7.3 % (3-14); Neutrophils Absolute Auto 6300 /uL (1500-7000); Neutrophils Percent Auto 74.2 % (50-75); Platelet Count 177 X10^3/uL (150-400); Red Blood Cell Count 3.86 X10^6/uL (4.5-5.9); Red Cell Distribution Width 12.5 % (11.6-14.8); White Blood Cell Count 8.5 X10^3/uL (4.5-11.0)
[2020-07-21] MEDS: LORazepam 2 MG/ML INJ IV ×3 (18:40→21:01)
[2020-07-21] MEDS: OLANZapine 2.5 MG TABLET 15 MG PO (18:54)
--- NOTE | 2020-07-21 20:28 | DI.CT.S_ITS ---
PROCEDURE: CT HEAD/BRAIN WO CON INDICATIONS: New onset seizure activity TECHNIQUE: Noncontrast 4.5 mm thick angled axial sections acquired from the foramen magnum to the vertex, with coronal and sagittal reformats. For radiation dose reduction, the following was used: automated exposure control, adjustment of mA and/or kV according to patient size. COMPARISON: [facility], CT, CT HEAD/BRAIN WO CON, 07/20/2020, 19:36. FINDINGS: Image quality: Excellent. CSF spaces: Basal cisterns are patent. No extra-axial fluid collections. The ventricles are symmetric in size and shape. Brain: No intracranial bleeds or masses. Again noted is large area of encephalomalacia involving right frontal lobe consistent with old infarction unchanged from prior study . There is cerebral volume loss for age, with resultant ventricular and sulcal prominence. There are periventricular and deep white matter chronic small vessel ischemic changes. There is intracranial internal carotid artery atherosclerosis. Skull and face: Calvarium and visualized facial bones appear intact, without suspicious lesions. Sinuses: Visualized sinuses and mastoids are clear. IMPRESSION: 1. No CT evidence of acute intracranial pathology. 2. 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 Dictated by: Gennaro Chou M.D. on 07/21/2020 at 21:16 Approved by: Gennaro Chou M.D. on 07/21/2020 at 21:17
--- NOTE | 2020-07-21 21:13 | PC.NURSE ---
1530: pt was A&O to self and place. pt report he wanted to go home and Robyn is here to pick him up. pt let me assess him and was cooperative. At 1600, pt verbally threatened this RN and staff. pt kept trying to get out of bed but weak, pt says I will pound you in the face if you touch me. pt did not believe we were nurses. pt thinks Robyn was downstairs waiting for him. pt had no recollection of why he's in the hospital. freddie gonzalez was called. provider notified. 2mg Ativan given IM per orders. pt was still attempting to get out of bed, but became more compliant to care. pt let me administer another 4mg ativan IM was given at 1620. later on pt agreen on peripheral IV placement. 1840:ativan given per [facility] protocol, [facility] 16. 1943: SECURITY INSPECTOR reported to me that pt just had seizure twice and only for a few seconds. This RN did not witness the seizure, vitals was taken 133/102. 2mg ativan given. provider was notified.
--- NOTE | 2020-07-21 21:39 | PC.NURSE ---
2044 Pt transferred from rm 207 to 227 per bed. Neuro changes noted by Acute Care nurse, several small seizures also noted. pt awake and responds to name only, PERRLA 5mm, moves all extremities, R>L history of CVA with left sided deficit. CT scan done as ordered, ECG done, BG done. Ativan 2mg IVP given as one time order. all PO meds held as pt is sleeping after adm of total 12mg ativan. seizure precautions in place, IV saline lock x2.
[2020-07-22] VITALS (17 sets, daily range): BP systolic 104–168; BP diastolic 54–90; PULSE 75–98; RESP 14–36; TEMP 36.2–36.6; O2SAT 95–100
[2020-07-22] MEDS: ACETAMINOPHEN 325 MG TABLET 650 MG PO ×2 (02:38→14:31)
[2020-07-22] MEDS: LORazepam 2 MG/ML INJ IV ×3 (02:43→17:32)
[2020-07-22 05:08] LABS: INR 1.1 (0.9-1.3); Prothrombin Time 12.8 SECONDS (10.1-12.7)
--- NOTE | 2020-07-22 05:08 | PC.NURSE ---
Fidel slept intermittently tonight between bursts of restlessness, talking to himself (or hallucinations), and attempts to exit the bed. He remains confused and with garbled speech tonight. He was moderately redirectable, used foul language towards staff, and did require prn Ativan once as of the writing of this note for increased agitation.
[2020-07-22 05:11] LABS: Add Manual Diff / Slide Review NO; Basophils Absolute Auto 0 /uL (0-100); Basophils Percent Auto 0.5 % (0-2); Eosinophils Absolute Auto 200 /uL (0-450); Eosinophils Percent Auto 3.1 % (2-4); Hematocrit 34.7 % (41-53); Hemoglobin 11.8 g/dL (13.5-17.5); Lymphocytes Absolute Auto 1500 /uL (1100-4500); Lymphocytes Percent Auto 20.9 % (25-40); Mean Corpuscular HGB Conc 33.9 % (30-36); Mean Corpuscular Hemoglobin 29.9 PG (26-34); Mean Corpuscular Volume 88.3 fL (80-100); Monocytes Absolute Auto 500 /uL (0-900); Monocytes Percent Auto 7.3 % (3-14); Neutrophils Absolute Auto 5000 /uL (1500-7000); Neutrophils Percent Auto 68.2 % (50-75); Platelet Count 166 X10^3/uL (150-400); Red Blood Cell Count 3.93 X10^6/uL (4.5-5.9); Red Cell Distribution Width 12.6 % (11.6-14.8); White Blood Cell Count 7.3 X10^3/uL (4.5-11.0)
[2020-07-22 05:38] LABS: BUN Creatinine Ratio 30.3 (6-22); Blood Urea Nitrogen 23 mg/dL (9-20); Calcium 9.2 mg/dL (8.4-10.2); Carbon Dioxide 24 mmol/L (22-32); Chloride 110 mmol/L (98-107); Estimated Glomerular Filt Rate > 60.0 mL/min (>60); Glucose 88 mg/dL (70-100); HEMOLYSIS < 15 (0-50); Potassium 3.6 mmol/L (3.4-5.1); Sodium 141 mmol/L (137-145)
[2020-07-22] MEDS: GABAPENTIN 400 MG CAPSULE PO ×3 (08:13→20:21)
[2020-07-22] MEDS: CLOPIDOGREL 75 MG TABLET PO (08:14)
[2020-07-22] MEDS: buPROPion XL 150 MG TAB 450 MG PO (08:14)
[2020-07-22] MEDS: ASPIRIN 81 MG CHEW TAB PO (08:14)
[2020-07-22] MEDS: DOCUSATE 100 MG CAPSULE PO ×2 (08:14→20:20)
[2020-07-22] MEDS: hydrOXYzine pamoate 25 MG CAPSULE PO ×2 (08:14→14:31)
[2020-07-22] MEDS: SERTRALINE 50 MG TABLET 25 MG PO (09:46)
[2020-07-22] MEDS: NICOTINE 21 MG PATCH TOP (09:46)
[2020-07-22] MEDS: lisinopriL 20 MG TABLET PO (09:46)
[2020-07-22] MEDS: LIDOCAINE PATCH 1 EACH ADH..PATCH TOP (09:46)
--- NOTE | 2020-07-22 11:14 | PT.IPTN ---
Physical Therapy Treatment Note M2 PT-IP Current Condition Start: 07/21/20 12:48 Freq: NEEDED Status: Active Protocol: Document 07/21/20 11:47 AB (Rec: 07/21/20 13:11 AB [email or web address]) Physical Therapy Current Condition Current Condition Evaluation Date 07/21/20 Treatment Diagnosis CVA vs TIA; difficulty in walking Onset Date 07/21/20 Precautions Other Precautions falls M3 PT-IP Subjective Start: 07/21/20 12:48 Freq: NEEDED Status: Active Protocol: Document 07/22/20 09:56 LJ (Rec: 07/22/20 11:14 LJ [id number]) Subjective Physical Therapy Visit Type Type Treatment Note Visit Start Time 09:56 Visit Stop Time 10:18 Total Visit Minutes 22 Notes nursing in room administering meds and assisting with PT Number of CHAIR LIFT OPERATOR Visits 1 M4 PT-IP Mobility and Gait Start: 07/21/20 12:48 Freq: NEEDED Status: Active Protocol: Document 07/22/20 09:56 LJ (Rec: 07/22/20 11:14 LJ [id number]) PT-Bed Mobility Assessment Supine to Sit Supine to Sit Standby Assistance,Head of Bed Elevated Scooting Scooting to Edge of Bed Standby Assistance,Contact Guard Assistance Scooting Up and Down in Bed Standby Assistance PT-Transfer Assessment Sit to and From Stand Sit to and from Stand Standby Assistance,Contact Guard Assistance,Minimal Assistance,1 Person Assistance ,2 Person Assistance,Use of Upper Extremities Equipment Transfer Assistive Device Gait Belt,Front Wheeled Walker Orthotic/Prosthetic Devices or Brace: No Transfers Transfer Destination Chair Transfer Technique Stand Step Pivot Transfer Ability Level of Assist Standby Assistance,Contact Guard Assistance,Minimal Assistance,Moderate Assistance ,1 Person Assistance,2 Person Assistance,Use of Upper Extremities Comments Mobility Comments Brief MMT indicated pt has good strength in both upper and lower extremeties. Pt completed supine>sit SBA. Able to scoot to side of bed SBA. Pt balanced sitting on side of bed for ~1 min without LOB. Pt stood at side of bed CGA- Husam (for LUE hand placement) and verbal/tactile cues for LEs using FWW. Pt ambulated with 1 person assist to chair and tried to sit before being in front of chair. He sat with eccentric control in the chair reaching back with RUE. Pt then performed 4 sit<>stand without using UEs with no LOB . Pt a;lso stood without UE on FWW and performed 10 head turns without LOB. Pt then walked in room around bed turning to the left with 1 person ModA. Frequent cueing for FWW management and correcting left and posterior lean. Pt returned to chair. On second ambulation practice, Pt turned to right on far side of bed. His brief fell down and he was able to lift his left foot to step out of it but when lifting his left foot he was unable to balance. After that pt declined in function and required constant cueing and 2 person ModA-MaxA for balance and FWW management. A chair was brought into the room so that he could immediately sit down. Pt rested several minutes then stood with Husam x2 and max cueing and ambulated to chair. He again attempted to sit in chair prior to being positioned properly. Pt sat with eccentric control and nursing placed pain patch on his lower back. Pt was left in room with nursing. Gait Assessment Gait Gait Assistance Required: Contact Guard Assist,Minimum Assistance,Moderate Assistance ,Maximum Assistance,1 Person Assist,2 Person Assist Distance (Feet) 50 Assistive Devices Assistive Device Gait Belt,Front Wheeled Walker Orthotic/Prosthetic Devices or Brace: No Gait Deviations General Gait Pattern Ataxic,Decreased Stride Length ,Decreased Feet Clearance, Lateral Trunk Lean,Narrow Based Gait Factors Limiting Gait Function Factors Limiting Gait Function Decreased Activity Tolerance, Difficulty Following Directions,Incoordination,Pain ,Poor Balance,Poor Safety Awareness Comments Gait Comments See mobility section. M5 PT-IP Objective Assessments Start: 07/21/20 12:48 Freq: NEEDED Status: Active Protocol: Document 07/21/20 11:47 AB (Rec: 07/21/20 13:11 AB [email or web address]) Orientation Orientation/Cognition Level of Alertness Confusional State Orientation Name Safety Awareness Decreased Safety Awareness Memory Description Short Term Impaired,Animal Trainer Supervisor Impaired Gross Range of Motion Lower Extremity ROM Assessment Within Functional Limits Strength Lower Extremity Strength Assessment Within Functional Limits M6 PT-IP Treatment Start: 07/21/20 12:48 Freq: NEEDED Status: Active Protocol: Document 07/22/20 09:56 LJ (Rec: 07/22/20 11:14 LJ [id number]) Physical Therapy Treatment Education Education Provided Safety Other Treatments Other Treatment Performed sit<>stand x4 without UEs standing head turns without hand hold M7 PT-IP Assessment and Plan Start: 07/21/20 12:48 Freq: NEEDED Status: Active Protocol: Document 07/22/20 09:56 MERARI (Rec: 07/22/20 11:14 MERARI [id number]) PT Summary Assessment and Plan Potential Rehabilitation Potential Fair Status of Condition at Evaluation Evolving Summary Impairments Pain,ROM,Strength,Balance, Coordination,Sensation,Tone, Cognition,Bed Mobility, Transfers,Gait,Activity Tolerance Assessment Summary Pt having difficulty with coordination and has a lag with following directions. He declined during second ambulation and exhibited greater lateral and posterior lean and required much more assist. Much greater difficulty in turning to the right. He needed Max cueing for obstacle avoidance and correcting lean. He was less impulsive but still requiring Husam-MaxA with ambulation. Pt is inconsistent with his performance and will require SNF rehab to improve balance and mobility independence. Goals Transfer Goal Minimal Assistance,Front Wheeled Walker Gait Goal Minimal Assistance,Front Wheel Walker Gait Distance 50 Days to Meet Goals 10 Frequency of Treatment Frequency Of Treatment Once a Day Treatment Plan Physical Therapy Treatment Plan Bed Mobility Training,Transfer Training,Gait Training, Therapeutic Exercise,Balance Retraining,Discharge Planning, Hot or Cold Pack,Neuromuscular Re-ed,Coordination Retraining Other Recommendations and Next Treatment cont monitor pt's ROM and Focus strength check single leg balance activity as selvin Precautions Other Precautions falls Recommendations To Nursing Amount of Assist Needed 2 Person Assist Discharge Recommendations PT Discharge Recommendations SNF Rehab Transportation Needs at Discharge Wheelchair/Cabulance
--- NOTE | 2020-07-22 11:26 | P.PN_ITS ---
Subjective Subjective Date Patient Seen: 07/22/20 Time Patient Seen: 11:26 Interval history: Fidel Erwin is a 55-year-old male with a past medical history of bipolar disorder with personality disorders, CAD, prior CVA with residual left-sided weakness, chronic systolic heart failure who presented initially with concern for a possible TIA or new CVA given multiple falls and worsened weakness. Yesterday evening he became acutely confused and combative, and was t hreatening to leave, however he is still significantly weaker compared to his baseline. He has been taking multiple medications for his mood disorder and personality disorder, including Valium, muscle relaxants, along with his olanzapine, and gabapentin. Yesterday he suffered what was likely a jas zodiazepine withdrawal seizure which improved with Ativan. He is more alert this morning and calm and cooperative. He feels weak today, but denies chest pain, shortness of breath, cough, abdominal pain, nausea, vomiting. Exam Vital Signs (past 8 hours): - 07/22/20 04:00 07/22/20 05:00 07/22/20 06:00 Temperature Pulse Rate 83 84 83 Respiratory Rate 25 H 29 H 16 Blood Pressure 134/75 140/76 123/71 Pulse Oximetry 98 100 97 07/22/20 07:00 07/22/20 07:30 Temperature 97.7 F Pulse Rate 75 83 Respiratory Rate 17 22 Blood Pressure 167/90 H 168/77 H Pulse Oximetry 99 100 Oxygen Delivery Method Room Air Oxygen Flow Rate 0 Narrative Exam Narrative: General: Patient is a well-developed, well-nourished in no distress at this time. HEENT: Normocephalic, abrasion to L cheek, healing. Chest: Normal AP diameter and contour without kyphoscoliosis, no nasal flaring, retractions, or tachypneic labored Lungs: Auscultation of all lung estrella are clear without adventitious sounds, wheezes, rhonchi, or rales. Cardio: regular rate and rhythm without murmur, rubs, or gallops, no carotid br uit, no cardiac pulsations present. Abdomen: Soft nontender, negative for organomegaly, or masses. Bowel sounds are present in all 4 quadrants without guarding or rebound, no CVA tenderness. Musculoskeletal: Muscle strength slightly decreased on the left and tone are equal within normal limits, no deformity, crepitus, effusions, cyanosis, clubbing or edema present. Full range of motion intact radial and pedal pulses are normal. Skin: Warm dry and intact without rashes, ulcerations or petechiae. Neuro: Alert and orientated x3, poor historian, slight left facial droop, and decreased strength and small motor coordination dexterity a in the left hand in comparison to the right, strength is +4/5Left-+5/5 Right, finger to nose was less accurate on the left than right due to muscle strength in the hand, sensation to touch intact, no gross deficits noted of cranial nerves. Psych: Patient has a moderate-kept appearance, appropriate affect today. Occasionally very confused and combative, intermittently agitated. Objective Labs Result Diagrams: 07/22/20 04:46 07/22/20 04:46 Labs: Laboratory Results - last 24 hr 07/21/20 07/21/20 07/21/20 16:50 16:50 16:50 WBC 8.5 RBC 3.86 L Hgb 11.6 L Hct 34.3 L MCV 88.7 MCH 30.2 MCHC 34.0 RDW 12.5 Plt Count 177 Neut % (Auto) 74.2 Lymph % (Auto) 16.5 L [place] % (Auto) 7.3 Eos % (Auto) 1.6 L Baso % (Auto) 0.4 Neut # (Auto) 6300 Lymph # (Auto) 1400 [place] # (Auto) 600 Eos # (Auto) 100 Baso # (Auto) 0 PT INR Sodium 144 Potassium 4.2 Chloride 110 H Carbon Dioxide 24 BUN 29 H Creatinine 0.94 Estimated GFR > 60.0 BUN/Creatinine Ratio 30.9 H Glucose 87 Calcium 9.2 Ammonia < 9 L 07/22/20 07/22/20 07/22/20 04:46 04:46 04:46 WBC 7.3 RBC 3.93 L Hgb 11.8 L Hct 34.7 L MCV 88.3 MCH 29.9 MCHC 33.9 RDW 12.6 Plt Count 166 Neut % (Auto) 68.2 Lymph % (Auto) 20.9 L [place] % (Auto) 7.3 Eos % (Auto) 3.1 Baso % (Auto) 0.5 Neut # (Auto) 5000 Lymph # (Auto) 1500 [place] # (Auto) 500 Eos # (Auto) 200 Baso # (Auto) 0 PT 12.8 H INR 1.1 Sodium 141 Potassium 3.6 Chloride 110 H Carbon Dioxide 24 BUN 23 H Creatinine 0.76 Estimated GFR > 60.0 BUN/Creatinine Ratio 30.3 H Glucose 88 Calcium 9.2 Ammonia PFSH Medical History (Updated 07/21/20 @ 02:37 by Priscila Donis [facility]) Anxiety Bipolar II disorder, mild, depressed, with anxious distress Coronary artery disease Discitis HTN (hypertension) 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) Surgical History (Updated 07/21/20 @ 02:37 by Priscila Donis [facility]) H/O valvuloplasty S/P CABG x 4 Family History (Updated 07/21/20 @ 05:42 by Priscila Don[facility] Grandfather Heart attack Family/Other Heart attack Social History household members: family Smoking Status: Current every day smoker alcohol intake: former Assessment & Plan Assessment & Plan narrative: Fidel Erwin is a 55-year-old male with a past medical history of bipolar disorder with personality disorders, CAD, prior CVA with residual left-sided weakness, chronic systolic heart failure who presented initially with concern for a possible TIA or new CVA given multiple falls and worsened weakness. However given negative MRI and benzodiazepine withdrawal seizure on evening after admission highly suspect weakness in setting of polypharmacy 1. Toxic encephalopathy, benzodiazepine withdrawal with seizure and polypharmacy , present on admission. -patient suffered likely a benzodiazepine withdrawal seizure evening of 07/21. Improved with ativan. -suspect polypharmacy in setting of treatment for his mood disorder leading to his recent confusion and weakness. He has been taking diazepam 5 mg TID recently in addition to muscle relaxants which were prescribed 07/16 in addition to multiple other medications. Further possibilities do include TIA, progressive dementia or his known encephalomalacia. Will restart diazepam today, continue ativan prn and discontinue CIWA. -consider psychiatry consultation tomorrow for help with adjustment of his medications. -continue ativan currently per CIWA protocol, continue seizure precautions. 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 2. CAD, chronic, stable -continue home aspirin -patient is S/P CABG in 2010 with mitral valve repair per documentation. 3. History of right CVA, present on admission, with residual left-sided weakness -PT/OT evaluation as noted above 4. Systolic Chronic heart failure with severely reduced ejection fraction 25-30% and mild aortic stenosis, chronic, not present on admission, stable -will continue patient's home medications 5. Essential Hypertension, acute on chronic, not present on admission, well controlled -continue lisinopril, metoprolol, Lasix, spironolactone 6. Nacissistic and paranoid personality disorders in addition to bipolar, mild, depressed, with anxiety, chronic, not present on admission --continue home onlazapine,sertraline, buproprion once verified 7. chronic low back pain after osteomyeltitis - no evidence of active osteomyeltitis - continue pain control with gabapentin, and tylenol as needed. Code status: Full Surrogate decision maker he states is his mother. COVID PCR: Negative PCP Dr. Chapis Grace VTE/DVT prophylaxis: Lovenox daily Quality VTE Deep Vein Thrombosis/Pulmonary Embolism Present on Admission: No
[2020-07-22] MEDS: diazePAM 5 MG TABLET PO ×2 (12:14→20:21)
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
--- NOTE | 2020-07-22 13:23 | PC.NURSE ---
Rec'd pt laying in bed, restless/agitated/impulsive. Provided reorientation and explained plan of care to pt who displays obvious short term deficits and is forgetful/asks repetitive questions unkowningly. Pt's behaviors and agitation are amenable to distraction and while he is impulsive and anxious, easily calms with careful explanations. He was able to get OOB and walk around with HIGH LIFT DRIVER utilizing fww, gait belt, gripper socks. Required many cues and CGA-2PA. Gait is inconsistent, sometimes steady/sometimes unsteady. Pt sat up to chair until after lunch. Over the course of late morning to early afternoon, pt became increasingly anxious and attempted to get up from chair unassisted despite repeated education on use of call light, fall risk, and need to wait for assistance before standing up. He would like to go to the store and get a pack of cigarettes, despite having a nicotine patch placed. Pt states he smokes 3 packs per day. He states that he smokes this much due to anxiety. He is open to having PRN ativan for anxiety. Administered with no effect. Discussed with Dr. Childs. Orders rec'd for PO valium. Post administration, pt requested back to bed- now resting comfortably with eyes closed and even/unlabored RR. Call light in easy reach, bed locked/low, bed alarm on, curtain pulled for direct visualization in room adjacent to nurse's station.
--- NOTE | 2020-07-22 14:49 | OT.IP.TRT ---
Occupational Therapy Treatment Note M2 OT-IP Current Condition Start: 07/21/20 11:09 Freq: Status: Active Protocol: Document 07/21/20 11:10 CGR (Rec: 07/21/20 11:30 CGR [id number]) Occupational Therapy Current Condition Current Condition Evaluation Date 07/21/20 Treatment Diagnosis facial droop, generalized weakness, recent fall Diagnosis Onset Date 07/21/20 M3 OT- IP Subjective and Pain Start: 07/21/20 11:09 Freq: Status: Active Protocol: Document 07/22/20 16:16 CGR (Rec: 07/22/20 16:24 CGR [id number]) OT- Subjective Occupational Therapy Visit Type Type Progress Note Visit Start Time 14:33 Visit Stop Time 14:49 Total Visit Minutes 16 Notes Pt and nursing agreeable to transfer to chair. OT Pain Assessment Pain When Pain Assessed At Rest Pain Present Pain Present Denied Pain M4 OT- IP ADL's Start: 07/21/20 11:09 Freq: Status: Active Protocol: Document 07/22/20 16:16 CGR (Rec: 07/22/20 16:24 CGR [id number]) OT [id number] Comments OT Self-Feeding Comments Not meal time OT ADL-Grooming General Evaluation Grooming Ability Moderate Assistance Areas Needing Assistance Combing/Brushing Hair Comments OT Grooming Comments for brushing hair. Pt uses R hand only and needs assist to pull brush through the length of his hear to prevent tangling. OT ADL-Oral Care Comments Oral Care Comments Pt declined to perform. States his mouth is too rough from all of the sand and dust. OT ADL-Dressing Comments OT Dressing Comments Not performed OT ADL-Toileting Comments OT Toileting Comments Not performed OT ADL-Bathing Comments OT Bathing Comments Not performed M5 OT- IP IADL's Start: 07/21/20 11:09 Freq: Status: Active Protocol: Document 07/21/20 11:10 CGR (Rec: 07/21/20 11:30 CGR [id number]) OT-Instrumental Activities of Daily Living Deficits IADL Deficits Identified Deficits Home Safety Awareness Awareness of Need for Assistance at Home Decreased Awareness Ability to Problem Solve Emergency Unable to Problem Solve Situations Medication Management Medication Management Comments Concerns regarding pt's ability to perform safely Money Management Money Management Comments Concerns regarding pt's ability to perform safely Meal Preparation Meal Preparation Comments Concerns regarding pt's ability to perform safely Buffing Wheel Inspector Buffing Wheel Inspector Comments Concerns regarding pt's ability to perform safely Driving Driving Comments Pt does not drive at baseline M6 OT- IP Functional Cognition Start: 07/21/20 11:09 Freq: Status: Active Protocol: Document 07/22/20 16:16 CGR (Rec: 07/22/20 16:24 CGR [id number]) Cognitive Factors Limiting Selfcare Function Cognitive Ability Level of Alertness Alert,Confusional State Patient Orientation Name Attention Span Ability Unable to Focus,Unable to Sustain Attention Ability to Follow Commands Able to Follow One Step Commands with Increased Time, Able to Follow One Step Commands with Repetition Cognitive Comments Cognitive Assessment Comments Pt presents with contineud confusion. He states it is August 2019. He is unable to state the name of the hospital today but knows he is in a hospital . M7 OT- IP Mobility and Balance Start: 07/21/20 11:09 Freq: Status: Active Protocol: Document 07/22/20 16:16 CGR (Rec: 07/22/20 16:24 CGR [id number]) OT- Bed Mobility Assessment Supine to Sit Supine to Sit Assist Standby Assistance Scooting Scooting to Edge of Bed Standby Assistance OT-Transfer Assessment Sit to and From Stand Sit to and from Stand Moderate Assistance,Maximum Assistance,1 Person Assistance Transfers Transfer Ability Moderate Assistance Technique Transfer Destination Bed,Chair Transfer Technique Stand Step Pivot Devices Transfer Assistive Devices Gait Belt,Front Wheeled Walker Comments Mobility Comments Pt with significant posterior lean upon standing requiring mod to max a for upright balance. Pt then needed mod a for transfer to chair. Pt with increased sitting balance today and improved awareness of midline. OT- Balance Assessment Sitting Balance and Reactions Static Sitting Balance Ability Good Dynamic Sitting Balance Ability Fair M8 OT- IP Objective Assessments Start: 07/21/20 11:09 Freq: Status: Active Protocol: Document 07/21/20 11:10 CGR (Rec: 07/21/20 11:30 CGR [id number]) OT Gross Range of Motion Upper Extremity Range of Motion Assessment Left Impaired ROM Impairments full ROM with physical assist of the L arm OT Strength Upper Extremity Strength Assessment Left Impaired Comments Strength Comments L grossly 4-/5, R grossly 4+/5 R forearm 4/5 OT- Coordination Assessment Upper Extremity Finger to Nose Test Left UE Impaired Finger Tapping Test Left UE Impaired OT-Muscle Tone Assessment Muscle Tone WNL Yes OT Sensation Assessment Edema Edema Absent M9 OT- IP Assessment and Plan Start: 07/21/20 11:09 Freq: Status: Active Protocol: Document 07/22/20 16:16 CGR (Rec: 07/22/20 16:24 CGR [id number]) OT Summary Assessment and Plan Potential Rehabilitation Potential Fair Analytic Complexity at Evaluation High Summary OT Impairments Range of Motion,Strength, Balance,Coordination, Functional Cognition, Functional Mobility,Self- Feeding,Grooming,Dressing, Toileting,Bathing,Toilet Transfers,Shower Transfers, Activity Tolerance Progress Towards Goals Slow Progress due to Medical Issues,Slow Progress due to Cognition Assessment Summary Pt presents as a high complexity evaluation s/p admit for stroke like symptoms . Pt has a hx of CVA with L weakness. Pt with increased balance with sitting on this date and able to better follow directions. Pt is still confused without knowledge of his location or situation. Pt will continue to benefit from OT services. Recommend SNF upon discharge. Goals Self-Feeding Goal Independent Grooming Goal Independent Dressing Goal Independent Toileting Goal Independent Bathing Goal Independent Toilet Transfer Goal Independent Shower Transfer Goal Independent Days to Meet Goals 30 Frequency of Treatment Frequency Of Treatment Once a Day Treatment Plan OT Treatment Plan ADL Training,Functional Cognition Training,Functional Mobility,Therapeutic Exercises ,Patient/Family Education, Discharge Planning Other Treatment Recommendations and Next shower if able/safe Treatment Focus Discharge Recommendations OT Discharge Recommendations SNF Rehab Transportation Needs at Discharge Wheelchair/Cabulance,Stretcher /Ambulance
[2020-07-22] MEDS: OXYCODONE IR 5 MG TABLET PO (17:27)
[2020-07-22] MEDS: ATORVASTATIN 20 MG TABLET 80 MG PO (20:20)
[2020-07-22] MEDS: OLANZapine 2.5 MG TABLET 15 MG PO (20:21)
[2020-07-22] MEDS: SENNOSIDES 8.6 MG TABLET 17.2 MG PO (20:21)
[2020-07-22] MEDS: SODIUM CHLORIDE 0.9% FLUSH 10 ML IV (20:39)
--- NOTE | 2020-07-22 21:24 | PC.NURSE ---
Pt has been awake and cooperative with care this shift. Showered and made needs known without difficulty.
[2020-07-23] MEDS: OXYCODONE IR 5 MG TABLET PO ×3 (05:05→17:36)
[2020-07-23 05:12] VITALS: BP 164/86; PULSE 80; RESP 18; TEMP 36.4; O2SAT 96
[2020-07-23 05:19] LABS: Add Manual Diff / Slide Review NO; Basophils Absolute Auto 0 /uL (0-100); Basophils Percent Auto 0.7 % (0-2); Eosinophils Absolute Auto 400 /uL (0-450); Eosinophils Percent Auto 7.1 % (2-4); Hematocrit 38.7 % (41-53); Hemoglobin 12.8 g/dL (13.5-17.5); Lymphocytes Absolute Auto 1200 /uL (1100-4500); Lymphocytes Percent Auto 19.7 % (25-40); Mean Corpuscular HGB Conc 33.2 % (30-36); Mean Corpuscular Hemoglobin 29.4 PG (26-34); Mean Corpuscular Volume 88.5 fL (80-100); Monocytes Absolute Auto 500 /uL (0-900); Monocytes Percent Auto 7.7 % (3-14); Neutrophils Absolute Auto 3800 /uL (1500-7000); Neutrophils Percent Auto 64.8 % (50-75); Platelet Count 170 X10^3/uL (150-400); Red Blood Cell Count 4.37 X10^6/uL (4.5-5.9); Red Cell Distribution Width 12.5 % (11.6-14.8); White Blood Cell Count 5.9 X10^3/uL (4.5-11.0)
[2020-07-23 05:23] LABS: INR 1.1 (0.9-1.3); Prothrombin Time 12.8 SECONDS (10.1-12.7)
[2020-07-23 05:31] LABS: BUN Creatinine Ratio 25.6 (6-22); Blood Urea Nitrogen 20 mg/dL (9-20); Calcium 9.6 mg/dL (8.4-10.2); Carbon Dioxide 27 mmol/L (22-32); Chloride 108 mmol/L (98-107); Estimated Glomerular Filt Rate > 60.0 mL/min (>60); Glucose 96 mg/dL (70-100); HEMOLYSIS < 15 (0-50); Potassium 3.5 mmol/L (3.4-5.1); Sodium 141 mmol/L (137-145)
[2020-07-23 08:13] VITALS: BP 138/77; PULSE 87; TEMP 36.3; O2SAT 95
[2020-07-23] MEDS: NICOTINE 21 MG PATCH TOP (08:37)
[2020-07-23] MEDS: SPIRONOLACTONE 25 MG TABLET 12.5 MG PO (08:37)
[2020-07-23] MEDS: ENOXAPARIN 40 MG/0.4 ML SYRINGE SUBCUT (08:37)
[2020-07-23] MEDS: DOCUSATE 100 MG CAPSULE PO ×2 (08:37→21:46)
[2020-07-23] MEDS: lisinopriL 20 MG TABLET PO (08:37)
[2020-07-23] MEDS: GABAPENTIN 400 MG CAPSULE PO ×3 (08:37→21:47)
[2020-07-23] MEDS: METOPROLOL ER 25 MG TABLET PO (08:39)
[2020-07-23] MEDS: CLOPIDOGREL 75 MG TABLET PO (08:39)
[2020-07-23] MEDS: ASPIRIN 81 MG CHEW TAB PO (08:39)
[2020-07-23] MEDS: buPROPion XL 150 MG TAB 450 MG PO (08:39)
[2020-07-23] MEDS: SERTRALINE 50 MG TABLET 25 MG PO (08:39)
[2020-07-23] MEDS: FUROSEMIDE 20 MG TABLET PO (08:39)
[2020-07-23] MEDS: LIDOCAINE PATCH 1 EACH ADH..PATCH TOP (08:40)
[2020-07-23] MEDS: SODIUM CHLORIDE 0.9% FLUSH 10 ML IV ×3 (08:41→21:48)
--- NOTE | 2020-07-23 09:12 | PC.NURSE ---
Patient oriented to self, place, calm cooperative with care. One person to chair for meal. C/o back,leg and neck pain 7/10, given 5mg oxycodone. Chair alarm on.
[2020-07-23 12:00] VITALS: BP 123/76; PULSE 68; RESP 17; TEMP 36.2; O2SAT 98
[2020-07-23] MEDS: ACETAMINOPHEN 325 MG TABLET 650 MG PO (13:33)
--- NOTE | 2020-07-23 13:42 | PT.IPTN ---
Current Diagnoses Disorientation, unspecified (07/21/20) Physical Therapy Treatment Note M2 PT-IP Current Condition Start: 07/21/20 12:48 Freq: NEEDED Status: Active Protocol: Document 07/21/20 11:47 AB (Rec: 07/21/20 13:11 AB [id number]) Physical Therapy Current Condition Current Condition Evaluation Date 07/21/20 Treatment Diagnosis CVA vs TIA; difficulty in walking Onset Date 07/21/20 Precautions Other Precautions falls M3 PT-IP Subjective Start: 07/21/20 12:48 Freq: NEEDED Status: Active Protocol: Document 07/23/20 12:45 LJ (Rec: 07/23/20 13:42 LJ [id number]) Subjective Physical Therapy Visit Type Type Treatment Note Visit Start Time 12:45 Visit Stop Time 01:18 Total Visit Minutes 33 Notes Pt in bed wanting to use the toilet M4 PT-IP Mobility and Gait Start: 07/21/20 12:48 Freq: NEEDED Status: Active Protocol: Document 07/23/20 12:45 LJ (Rec: 07/23/20 13:42 LJ [id number]) PT-Bed Mobility Assessment Supine to Sit Supine to Sit Standby Assistance,Head of Bed Elevated Scooting Scooting to Edge of Bed Standby Assistance PT-Transfer Assessment Sit to and From Stand Sit to and from Stand Contact Guard Assistance,1 Person Assistance,Use of Upper Extremities Equipment Transfer Assistive Device Gait Belt,Front Wheeled Walker Orthotic/Prosthetic Devices or Brace: No Transfers Transfer Destination Chair Transfer Technique Stand Step Pivot Transfer Ability Level of Assist Standby Assistance,Contact Guard Assistance,1 Person Assistance,Use of Upper Extremities Comments Mobility Comments Pt SBA for bed mobility. Pt transfered bed to bathroom CGA and stood at the toilet to linda for several minutes leaning on railing with LUE. He demonstrated a posterior lean and had to be cued several times to nell forward. Pt would have lost balance without assist due to his limited ability to grasp with his left hand. Pt then ambulated around the room x2 turning in different directions to assess balance and management of FWW. twice his left foot crossed his right posteriorly and he had a slight LOB which he self corrected. When turning during ambulation he wuld lift the FWW rather than push it. He also needed cues to avoid hitting corners on his left side with the FWW. After ambulation, pt returned to the chair and performed seated exercises. Gait Assessment Gait Gait Assistance Required: Contact Guard Assist,Minimum Assistance,1 Person Assist Distance (Feet) 70 Assistive Devices Assistive Device Gait Belt,Front Wheeled Walker Orthotic/Prosthetic Devices or Brace: No Gait Deviations General Gait Pattern Ataxic,Decreased Stride Length ,Decreased Feet Clearance, Lateral Trunk Lean,Narrow Based Gait Factors Limiting Gait Function Factors Limiting Gait Function Decreased Activity Tolerance, Decreased Strength,Difficulty Following Directions, Incoordination,Pain,Poor Balance,Poor Safety Awareness Comments Gait Comments See mobility section. M5 PT-IP Objective Assessments Start: 07/21/20 12:48 Freq: NEEDED Status: Active Protocol: Document 07/21/20 11:47 AB (Rec: 07/21/20 13:11 AB [id number]) Orientation Orientation/Cognition Level of Alertness Confusional State Orientation Name Safety Awareness Decreased Safety Awareness Memory Description Short Term Impaired,C[employer] Runners Impaired Gross Range of Motion Lower Extremity ROM Assessment Within Functional Limits Strength Lower Extremity Strength Assessment Within Functional Limits M6 PT-IP Treatment Start: 07/21/20 12:48 Freq: NEEDED Status: Active Protocol: Document 07/23/20 12:45 LJ (Rec: 07/23/20 13:42 LJ [id number]) Physical Therapy Treatment Exercises Exercises Ankle Pumps,Gluteal Sets,Quad Sets Other Treatments Other Treatment Performed sit<>stand x 5 without UEs standing head turns without hand hold 30 sec seated abdominal draw in exercises x10 seated SLR x10 standing marches with HH on FWW 1 min M7 PT-IP Assessment and Plan Start: 07/21/20 12:48 Freq: NEEDED Status: Active Protocol: Document 07/23/20 12:45 LJ (Rec: 07/23/20 13:42 LJ [id number]) PT Summary Assessment and Plan Potential Rehabilitation Potential Fair Status of Condition at Evaluation Evolving Summary Impairments Pain,ROM,Strength,Balance, Coordination,Sensation,Tone, Cognition,Transfers,Gait, Activity Tolerance Assessment Summary Pt improved with cognition and ability to follow directions. Improved ambulation and FWW management. Pt is still unstable during gait but improved from yesterday. His ability to do left and right turns equally well is improving but still remains less attentive to left side. SNF recommended for increasing strength and mobility for improved function and independence. Goals Transfer Goal Minimal Assistance,Front Wheeled Walker Gait Goal Minimal Assistance,Front Wheel Walker Gait Distance 50 Days to Meet Goals 10 Frequency of Treatment Frequency Of Treatment Once a Day Treatment Plan Physical Therapy Treatment Plan Bed Mobility Training,Transfer Training,Gait Training, Therapeutic Exercise,Balance Retraining,Discharge Planning, Hot or Cold Pack,Neuromuscular Re-ed,Coordination Retraining Other Recommendations and Next Treatment cont monitor pt's ROM and Focus strength check single leg balance activity as selvin Precautions Other Precautions falls Recommendations To Nursing Amount of Assist Needed 1 Person Assist Discharge Recommendations PT Discharge Recommendations SNF Rehab
[2020-07-23] MEDS: diazePAM 5 MG TABLET PO (13:52)
--- NOTE | 2020-07-23 13:59 | PM.PN.1 ---
Subjective Subjective Date Patient Seen: 07/23/20 Time Patient Seen: 14:00 Interval history: Fidel Erwin is a 55-year-old male with a past medical history of bipolar disorder with personality disorders, CAD, prior CVA with residual left-sided weakness, chronic systolic heart failure who presented initially with concern for a possible TIA or new CVA given multiple falls and worsened weakness. On HD#1 he became acutely confused and combative, and was threatening to leave. He then suffered what was likely a benzodiazepine withdrawal seizure which improved with Ativan. He feels weak today but improved, but denies chest pain, shortness of breath, cough, abdominal pain, nausea, vomiting. He is recommended for SNF but refuses at this time. Exam Vital Signs (past 8 hours): - 07/23/20 08:13 07/23/20 12:00 Temperature 97.4 F L 97.2 F L Pulse Rate 87 68 Respiratory Rate 17 Blood Pressure 138/77 123/76 Pulse Oximetry 95 98 Oxygen Delivery Method Room Air Oxygen Flow Rate 0 Narrative Exam Narrative: General: Patient is a well-developed, well-nourished in no distress at this time. HEENT: Normocephalic, abrasion to L cheek, healing. Chest: Normal AP diameter and contour without kyphoscoliosis, no nasal flaring, retractions, or tachypneic labored Lungs: Auscultation of all lung estrella are clear without adventitious sounds, wheezes, rhonchi, or rales. Cardio: regular rate and rhythm without murmur, rubs, or gallops, no carotid bruit, no cardiac pulsations present. Abdomen: Soft nontender, negative for organomegaly, or masses. Bowel sounds are present in all 4 quadrants without guarding or rebound, no CVA tenderness. Musculoskeletal: Muscle strength slightly decreased on the left and tone are equal within normal limits, no deformity, crepitus, effusions, cyanosis, clubbing or edema present. Full range of motion intact radial and pedal pulses are normal. Skin: Warm dry and intact without rashes, ulcerations or petechiae. Neuro: Alert and orientated x2, poor historian, slight left facial droop, and decreased strength and small motor coordination dexterity a in the left hand in comparison to the right, strength is +4/5Left-+5/5 Right. Cranial nerves grossly intact b/l. Psych: Patient has a moderate-kept appearance, appropriate affect today. Objective Labs Result Diagrams: 07/23/20 05:01 07/23/20 05:01 Labs: Laboratory Results - last 24 hr 07/23/20 07/23/20 07/23/20 05:01 05:01 05:01 WBC 5.9 RBC 4.37 L Hgb 12.8 L Hct 38.7 L MCV 88.5 MCH 29.4 MCHC 33.2 RDW 12.5 Plt Count 170 Neut % (Auto) 64.8 Lymph % (Auto) 19.7 L Saline % (Auto) 7.7 Eos % (Auto) 7.1 H Baso % (Auto) 0.7 Neut # (Auto) 3800 Lymph # (Auto) 1200 Saline # (Auto) 500 Eos # (Auto) 400 Baso # (Auto) 0 PT 12.8 H INR 1.1 Sodium 141 Potassium 3.5 Chloride 108 H Carbon Dioxide 27 BUN 20 Creatinine 0.78 Estimated GFR > 60.0 BUN/Creatinine Ratio 25.6 H Glucose 96 Calcium 9.6 PFSH Medical History (Updated 07/21/20 @ 02:37 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 Grandfather Heart attack Family/Other Heart attack Social History household members: family Smoking Status: Current every day smoker alcohol intake: former Assessment & Plan Assessment & Plan narrative: Fidel Erwin is a 55-year-old male with a past medical history of bipolar disorder with personality disorders, CAD, prior CVA with residual left-sided weakness, chronic systolic heart failure who presented initially with concern for a possible TIA or new CVA given multiple falls and worsened weakness. However given negative MRI and benzodiazepine withdrawal seizure on evening after admission highly suspect weakness in setting of polypharmacy 1. Toxic encephalopathy, benzodiazepine withdrawal with seizure and polypharmacy , present on admission, improving. -patient suffered likely a benzodiazepine withdrawal seizure evening of 07/21. Improved with ativan. No further episodes since restarting his home valium. -suspect polypharmacy in setting of treatment for his mood disorder leading to his recent confusion and weakness. He has been taking diazepam 5 mg TID recently in addition to muscle relaxants which were prescribed 07/16 in addition to multiple other medications. Further possibilities do include TIA, progressive dementia or his known encephalomalacia. Will restart diazepam today, continue ativan prn and discontinue CIWA. 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 2. CAD, chronic, stable -continue home aspirin -patient is S/P CABG in 2010 with mitral valve repair per documentation. 3. History of right CVA, present on admission, with residual left-sided weakness -PT/OT evaluation as noted above 4. Systolic Chronic heart failure with severely reduced ejection fraction 25-30% and mild aortic stenosis, chronic, not present on admission, stable -will continue patient's home medications, no indication based on symptoms and negative MRI for repeat TTE at this time. 5. Essential Hypertension, acute on chronic, not present on admission, well controlled -continue lisinopril, metoprolol, Lasix, spironolactone 6. Nacissistic and paranoid personality disorders in addition to bipolar, mild, depressed, with anxiety, chronic, not present on admission --continue home onlazapine,sertraline, buproprion 7. chronic low back pain after osteomyeltitis - no evidence of active osteomyeltitis - continue pain control with gabapentin, oxycodone, and tylenol as needed. 8. Cognitive impairment, chronic - patient with previous SLUMS of . Slightly worsened to 02/16 per therapy reports today. Unclear if progression of chronic disease or related to toxic encephalopathy Code status: Full Surrogate decision maker he states is his mother. COVID PCR: Negative PCP Dr. Chapis Grace VTE/DVT prophylaxis: Lovenox daily Dispo: Anticipate discharge home in the next 1-2 days given some improvement with PT thus far. patient refused SNF placement today so likely home with home health and PT/OT. Quality VTE Deep Vein Thrombosis/Pulmonary Embolism Present on Admission: No
--- NOTE | 2020-07-23 14:25 | CM.DPC ---
DCP HH vs SNF planning Per PT, pt made some progress today with mobility and ambulation but still frequent LOB and unsteady gait and had some difficulty utilizing FWW appropriately and therefore recommending SNF at d/c. Per ST, completed Cog Eval and pt scored 10/30 and concerns for cognitive abilities but no baseline Cog Eval to compare it to. So concerns regarding pt's safety awareness and could benefit from ongoing ST for cognition skill building whether pt discharges to SNF or home with HH. Per MD, met bedside with pt and ex-girlfriend Robyn and discussed PT recommendation of SNF and pt adamantly refuses SNF at d/c and ex-girlfriend feels that pt could safely manage at home with his mother at discharge. Plan: SW to follow for further discussion with pt and his mother via phone regarding likely need of HH at d/c and potential for moth exterminator care planning if pt's cognition does not improve. Marysol Carvalho, [employer]
--- NOTE | 2020-07-23 15:15 | OT.IP.TRT ---
Current Diagnoses Disorientation, unspecified (07/21/20) Occupational Therapy Treatment Note M2 OT-IP Current Condition Start: 07/21/20 11:09 Freq: Status: Active Protocol: Document 07/21/20 11:10 CGR (Rec: 07/21/20 11:30 CGR [id number]) Occupational Therapy Current Condition Current Condition Evaluation Date 07/21/20 Treatment Diagnosis facial droop, generalized weakness, recent fall Diagnosis Onset Date 07/21/20 M3 OT- IP Subjective and Pain Start: 07/21/20 11:09 Freq: Status: Active Protocol: Document 07/23/20 15:22 CGR (Rec: 07/23/20 15:32 CGR [id number]) OT- Subjective Occupational Therapy Visit Type Type Progress Note Visit Start Time 14:48 Visit Stop Time 15:15 Total Visit Minutes 27 Occupational Therapy Visit Comments Patient Comments I guess I could get up and shower. M4 OT- IP ADL's Start: 07/21/20 11:09 Freq: Status: Active Protocol: Document 07/23/20 15:22 CGR (Rec: 07/23/20 15:32 CGR [id number]) OT [id number] Comments OT Self-Feeding Comments Not meal time OT ADL-Grooming General Evaluation Grooming Ability Minimal Assistance Areas Needing Assistance Combing/Brushing Hair Comments OT Grooming Comments standing at sink OT ADL-Oral Care General Eval Oral Care Ability Minimal Assistance Areas of Assistance Brushing Teeth Comments Oral Care Comments standing at sink OT ADL-Dressing General Eval Upper Body Dressing Ability Standby Assistance Lower Body Dressing Ability Minimal Assistance,Moderate Assistance Areas Needing Assistance Underpants/Brief,Socks Comments OT Dressing Comments hosptial gown, socks, and briefs. pt was able to don socks without assist but mod a for pulling up of briefs. OT ADL-Toileting Comments OT Toileting Comments Not performed OT ADL-Bathing Bathing Type Bathing Type Shower General Evaluation Bathing Ability Contact Guard Assistance, Minimal Assistance Areas Needing Assistance Wash/Dry Back Devices Bathing Equipment Hand Held Shower Sprayer, Shower Chair with Arms Comments OT Bathing Comments Pt performed bathing seated in chair. Pt was able to wash most of body without assist but with poor safety awareness . M5 OT- IP IADL's Start: 07/21/20 11:09 Freq: Status: Active Protocol: Document 07/21/20 11:10 CGR (Rec: 07/21/20 11:30 CGR [id number]) OT-Instrumental Activities of Daily Living Deficits IADL Deficits Identified Deficits Home Safety Awareness Awareness of Need for Assistance at Home Decreased Awareness Ability to Problem Solve Emergency Unable to Problem Solve Situations Medication Management Medication Management Comments Concerns regarding pt's ability to perform safely Money Management Money Management Comments Concerns regarding pt's ability to perform safely Meal Preparation Meal Preparation Comments Concerns regarding pt's ability to perform safely Home Health Attendant Home Health Attendant Comments Concerns regarding pt's ability to perform safely Driving Driving Comments Pt does not drive at baseline M6 OT- IP Functional Cognition Start: 07/21/20 11:09 Freq: Status: Active Protocol: Document 07/22/20 16:16 CGR (Rec: 07/22/20 16:24 CGR [id number]) Cognitive Factors Limiting Selfcare Function Cognitive Ability Level of Alertness Alert,Confusional State Patient Orientation Name Attention Span Ability Unable to Focus,Unable to Sustain Attention Ability to Follow Commands Able to Follow One Step Commands with Increased Time, Able to Follow One Step Commands with Repetition Cognitive Comments Cognitive Assessment Comments Pt presents with contineud confusion. He states it is August 2019. He is unable to state the name of the hospital today but knows he is in a hospital . M7 OT- IP Mobility and Balance Start: 07/21/20 11:09 Freq: Status: Active Protocol: Document 07/23/20 15:22 CGR (Rec: 07/23/20 15:32 CGR [id number]) OT-Transfer Assessment Sit to and From Stand Sit to and from Stand Contact Guard Assistance, Minimal Assistance Transfers Transfer Ability Contact Guard Assistance, Minimal Assistance Technique Transfer Destination Bedside Commode,Chair,Shower Stall Transfer Technique Stand Step Pivot Devices Transfer Assistive Devices Gait Belt,Front Wheeled Walker Comments Mobility Comments Pt mobilized from the chair into the shower and onto BSc for bathing. Pt then returned to chair for dressing and then to sink for standing ADLs. Pt returned to chair at end of session, chair fall alarm armed. OT- Gait Assessment Gait Gait Assistance Required: Contact Guard Assist,Minimum Assistance Assistive Devices Assistive Device Gait Belt,Front Wheeled Walker Comments Gait Ability Comments Pt able to ambulate in room with CGa to MIN but still with poor balance and poor safety with use of walker. OT- Balance Assessment Sitting Balance and Reactions Static Sitting Balance Ability Good Dynamic Sitting Balance Ability Fair M8 OT- IP Objective Assessments Start: 07/21/20 11:09 Freq: Status: Active Protocol: Document 07/21/20 11:10 CGR (Rec: 07/21/20 11:30 CGR [id number]) OT Gross Range of Motion Upper Extremity Range of Motion Assessment Left Impaired ROM Impairments full ROM with physical assist of the L arm OT Strength Upper Extremity Strength Assessment Left Impaired Comments Strength Comments L grossly 4-/5, R grossly 4+/5 R forearm 4/5 OT- Coordination Assessment Upper Extremity Finger to Nose Test Left UE Impaired Finger Tapping Test Left UE Impaired OT-Muscle Tone Assessment Muscle Tone WNL Yes OT Sensation Assessment Edema Edema Absent M9 OT- IP Assessment and Plan Start: 07/21/20 11:09 Freq: Status: Active Protocol: Document 07/23/20 15:22 CGR (Rec: 07/23/20 15:32 CGR [id number]) OT Summary Assessment and Plan Potential Rehabilitation Potential Fair Analytic Complexity at Evaluation High Summary OT Impairments Range of Motion,Strength, Balance,Coordination, Functional Cognition, Functional Mobility,Self- Feeding,Grooming,Dressing, Toileting,Bathing,Toilet Transfers,Shower Transfers, Activity Tolerance Progress Towards Goals Slow Progress due to Medical Issues,Slow Progress due to Cognition Assessment Summary Pt presents as a high complexity evaluation s/p admit for stroke like symptoms . Pt has a hx of CVA with L weakness. Pt with increased balance and mobility today but still requiring CGA to min a with poor safety at this time. Pt states his L hand continues to be less functional than at his baseline. Pt will continue to benefit from OT services. Recommend d/c to home vs SNF at discharge. Goals Self-Feeding Goal Independent Grooming Goal Independent Dressing Goal Independent Toileting Goal Independent Bathing Goal Independent Toilet Transfer Goal Independent Shower Transfer Goal Independent Days to Meet Goals 30 Frequency of Treatment Frequency Of Treatment Once a Day Treatment Plan OT Treatment Plan ADL Training,Functional Cognition Training,Functional Mobility,Therapeutic Exercises ,Patient/Family Education, Discharge Planning Other Treatment Recommendations and Next shower if able/safe Treatment Focus Discharge Recommendations OT Discharge Recommendations SNF Rehab Transportation Needs at Discharge Private Vehicle,Wheelchair/ Cabulance
[2020-07-23 15:21] VITALS: BP 104/58; PULSE 74; RESP 17; TEMP 36.5; O2SAT 97
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
[2020-07-23] MEDS: ATORVASTATIN 20 MG TABLET 80 MG PO (21:46)
[2020-07-23] MEDS: SENNOSIDES 8.6 MG TABLET 17.2 MG PO (21:47)
[2020-07-23] MEDS: OLANZapine 2.5 MG TABLET 15 MG PO (21:48)
[2020-07-23 22:15] VITALS: BP 103/72; PULSE 66; RESP 17; TEMP 36.3; O2SAT 96
[2020-07-23 23:37] VITALS: BP 154/74; PULSE 76; RESP 16; TEMP 0; TEMP 36.6; O2SAT 96
[2020-07-24 05:04] VITALS: BP 153/78; PULSE 72; RESP 18; TEMP 36; O2SAT 96
[2020-07-24 08:00] VITALS: BP 163/90; PULSE 88; RESP 18; TEMP 37; O2SAT 98
--- NOTE | 2020-07-24 10:23 | OT.IP.TRT ---
Current Diagnoses Unspecified convulsions (07/21/20) Occupational Therapy Treatment Note M2 OT-IP Current Condition Start: 07/21/20 11:09 Freq: Status: Active Protocol: Document 07/21/20 11:10 CGR (Rec: 07/21/20 11:30 CGR [id number]) Occupational Therapy Current Condition Current Condition Evaluation Date 07/21/20 Treatment Diagnosis facial droop, generalized weakness, recent fall Diagnosis Onset Date 07/21/20 M3 OT- IP Subjective and Pain Start: 07/21/20 11:09 Freq: Status: Active Protocol: Document 07/24/20 10:36 [facility] (Rec: 07/24/20 10:49 [facility] [id number]) OT- Subjective Occupational Therapy Visit Type Type Treatment Note Visit Start Time 09:00 Visit Stop Time 10:23 Total Visit Minutes 61 Notes Pt seen for split treatment [id number], and [id number] Occupational Therapy Visit Comments Patient Comments Pt wanting to go home. Pt's ex in the room at the end of the session. Patient/Caregiver Goals To go home. OT Pain Assessment Pain When Pain Assessed At Rest Pain Present Pain Present Denied Pain M4 OT- IP ADL's Start: 07/21/20 11:09 Freq: Status: Active Protocol: Document 07/24/20 10:36 [facility] (Rec: 07/24/20 10:49 [facility] [id number]) OT [id number] Comments OT Self-Feeding Comments Not meal time OT ADL-Grooming General Evaluation Grooming Ability Standby Assistance Comments OT Grooming Comments standing at sink OT ADL-Oral Care General Eval Oral Care Ability Standby Assistance Comments Oral Care Comments standing at sink OT ADL-Dressing General Eval Lower Body Dressing Ability Standby Assistance,Minimal Assistance Areas Needing Assistance Socks Comments OT Dressing Comments Educated pt on use of sock aid to increased independence to levi sock as left hand has decreased FMS and has difficulty to lean forwards. OT ADL-Toileting Comments OT Toileting Comments Not performed OT ADL-Bathing Comments OT Bathing Comments Pt would benefit from supervision for showering needs. Pt states has a shower chair with back at home to use . M5 OT- IP IADL's Start: 07/21/20 11:09 Freq: Status: Active Protocol: Document 07/21/20 11:10 CGR (Rec: 07/21/20 11:30 CGR [id number]) OT-Instrumental Activities of Daily Living Deficits IADL Deficits Identified Deficits Home Safety Awareness Awareness of Need for Assistance at Home Decreased Awareness Ability to Problem Solve Emergency Unable to Problem Solve Situations Medication Management Medication Management Comments Concerns regarding pt's ability to perform safely Money Management Money Management Comments Concerns regarding pt's ability to perform safely Meal Preparation Meal Preparation Comments Concerns regarding pt's ability to perform safely Ip Counsel Ip Counsel Comments Concerns regarding pt's ability to perform safely Driving Driving Comments Pt does not drive at baseline M6 OT- IP Functional Cognition Start: 07/21/20 11:09 Freq: Status: Active Protocol: Document 07/24/20 10:36 [facility] (Rec: 07/24/20 10:49 [facility] [id number]) Cognitive Factors Limiting Selfcare Function Cognitive Ability Level of Alertness Alert,Confusional State Attention Span Ability Capable of Focused Attention, Capable of Sustained Attention Ability to Follow Commands Able to Follow One Step Commands Memory Description Short Term Impaired Safety Awareness Underestimates Need for Assistance Cognitive Comments Cognitive Assessment Comments Pt needing initial cues to use 4ww to lock the brakes. 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 Pt states mother has a 4WW that he can use at home. M7 OT- IP Mobility and Balance Start: 07/21/20 11:09 Freq: Status: Active Protocol: Document 07/24/20 10:36 [facility] (Rec: 07/24/20 10:49 [facility] [id number]) OT- Bed Mobility Assessment Supine to Sit Supine to Sit Assist Standby Assistance Scooting Scooting to Edge of Bed Standby Assistance OT-Transfer Assessment Sit to and From Stand Sit to and from Stand Standby Assistance Transfers Transfer Ability Standby Assistance,Contact Guard Assistance Technique Transfer Destination Bed,Bedside Commode,Chair Devices Transfer Assistive Devices None,Gait Belt,Front Wheeled Walker,4 Wheeled Walker Comments Mobility Comments Pt is much safer with 4WW however as pt tires more unsteady on his feet and needing CGA. OT- Gait Assessment Comments Gait Ability Comments CGA to SBA with 4WW. OT- Balance Assessment Sitting Balance and Reactions Static Sitting Balance Ability Good Dynamic Sitting Balance Ability Fair Standing Balance and Reactions Static Standing Balance Ability Fair Dynamic Standing Balance Ability Poor Comments Other Balance Tests/Deviations/Treatment Pt tends to lean into : posterior tilt and lateral tilt to the left. Pt needing cues to keep his feet apart while walking. M8 OT- IP Objective Assessments Start: 07/21/20 11:09 Freq: Status: Active Protocol: Document 07/21/20 11:10 CGR (Rec: 07/21/20 11:30 CGR [id number]) OT Gross Range of Motion Upper Extremity Range of Motion Assessment Left Impaired ROM Impairments full ROM with physical assist of the L arm OT Strength Upper Extremity Strength Assessment Left Impaired Comments Strength Comments L grossly 4-/5, R grossly 4+/5 R forearm 4/5 OT- Coordination Assessment Upper Extremity Finger to Nose Test Left UE Impaired Finger Tapping Test Left UE Impaired OT-Muscle Tone Assessment Muscle Tone WNL Yes OT Sensation Assessment Edema Edema Absent M9 OT- IP Assessment and Plan Start: 07/21/20 11:09 Freq: Status: Active Protocol: Document 07/24/20 10:36 [facility] (Rec: 07/24/20 10:49 [facility] [id number]) OT Summary Assessment and Plan Potential Rehabilitation Potential Good Summary OT Impairments Range of Motion,Strength, Balance,Coordination, Functional Cognition, Functional Mobility,Self- Feeding,Grooming,Dressing, Toileting,Bathing,Toilet Transfers,Shower Transfers, Activity Tolerance Progress Towards Goals Progressing Toward Goals,Slow Progress due to Cognition Assessment Summary Pt and his mother insistent that pt goes home and also not wanting home health at this time. Pt's mother states she had a bad experience with home health for her needs and therefore does not want her son to have it. Tried to explain to her that her son has different needs which would greatly benefit from home health. Per son would like to have home health if it is covered by insurance. Able to talk to case management regarding pt's needs. Also able to let pt's nurse know that pt's mother is concerned about that his current medications maybe causing him to be dizzy. Suggested pt home with assist and home health. Goals Self-Feeding Goal Independent Grooming Goal Independent Dressing Goal Independent Toileting Goal Independent Bathing Goal Independent Toilet Transfer Goal Independent Shower Transfer Goal Independent Days to Meet Goals 7 Frequency of Treatment Frequency Of Treatment Once a Day Discharge Recommendations OT Discharge Recommendations Home with Assistance,Home Health Transportation Needs at Discharge Private Vehicle
[2020-07-24 10:25] VITALS: BP 129/83
[2020-07-24] MEDS: SPIRONOLACTONE 25 MG TABLET 12.5 MG PO (10:25)
[2020-07-24] MEDS: buPROPion XL 150 MG TAB 450 MG PO (10:25)
[2020-07-24] MEDS: METOPROLOL ER 25 MG TABLET PO (10:25)
[2020-07-24] MEDS: DOCUSATE 100 MG CAPSULE PO (10:27)
[2020-07-24] MEDS: ASPIRIN 81 MG CHEW TAB PO (10:27)
[2020-07-24] MEDS: FUROSEMIDE 20 MG TABLET PO (10:27)
[2020-07-24] MEDS: CLOPIDOGREL 75 MG TABLET PO (10:28)
[2020-07-24] MEDS: lisinopriL 20 MG TABLET PO (10:28)
[2020-07-24] MEDS: SERTRALINE 50 MG TABLET 25 MG PO (10:28)
[2020-07-24] MEDS: NICOTINE 21 MG PATCH TOP (10:29)
[2020-07-24] MEDS: ENOXAPARIN 40 MG/0.4 ML SYRINGE SUBCUT (10:29)
[2020-07-24] MEDS: LIDOCAINE PATCH 1 EACH ADH..PATCH TOP (10:30)
[2020-07-24] MEDS: SODIUM CHLORIDE 0.9% FLUSH 10 ML IV (10:31)
[2020-07-24] MEDS: OXYCODONE IR 5 MG TABLET PO (10:39)
[2020-07-24] MEDS: GABAPENTIN 400 MG CAPSULE PO (10:41)
[2020-07-24] MEDS: BACITRACIN 28 GM OINT 1 APPLIC TOP (11:49)
--- NOTE | 2020-07-24 12:16 | PC.NURSE ---
Addendum entered by Melissa Cleveland R.N. 07/24/20 13:03: DC FROM HOSPITAL AT THIS TIME Original Note: PT PREPARING TO DISCHARGE TO HOME ( WITH MOTHER, NICOLE) ALL FEEL HE IS AT BASELINE, AND PT RELIEVED TO GO - IV ACCESS REMOVED AND PT DRESSED- FRIEND, MICHAEL TO DRIVE HIM HOME
--- NOTE | 2020-07-24 12:23 | CM.DPC ---
DCP Note: CLOTHING SUPERVISOR calls patient's mother Sofia. Patient resides in Sofai's home, CLOTHING SUPERVISOR discusses HH services and Sofia is in agreement and understands. airplane pilot met beside with patient and sarah Robyn. Patient was A/Ox4. airplane pilot explain HH and gives patient list of HH options and patient chooses [facility]. airplane pilot submit HH referral to [facility] for OT, PT, RN and ST. Per MD patient is medically cleared for d/c. Plan: d/c to home with HH. ROLF Flores
--- NOTE | 2020-07-24 13:01 | CM.DPC ---
DCP Discharge home with HH Per MD, pt is medically stable to d/c home today with HH. Per pt preference, RAYA called [facility] and made new referral and faxed clinicals along with signed F2Rosy, orders, and d/c summary to review. Confirmed that [facility] is contracted with pt's [employer] Adv. They are aware pt is discharging home today and ST for cognition/memory. Plan: Patient to d/c home today via ex-girlfriend's POV and new [facility] referral. ROLF Nuñez
--- NOTE | 2020-07-24 22:00 | PM.DS.1 ---
History of Present Illness History of Present Illness Chief complaint: Weakness Narrative: Per Priscila Arevalo on 07/21/20: Patient is a 55-year-old male Fidel Erwin brought via EMS to the ED for facial droop and generalized weakness. Patient reported in the ED he had a fall yesterday and today and complaining of left-sided pain. The patient advised me that he had fallen a week ago thursday and he did hit the left side of his face and has some redness which he states is improving as well as some swelling. The healing stage of the abrasion to his left cheek would seem to support a fall a week ago. When I asked as to why the patient presented to the ED he stated ?I was just following down and could not think or talk straight. Patient's last known normal is on clear. It is unclear whether patient has a new onset of weakness and changes secondary to TIA or CVA, or if the patient continues to fall related to previous CVA and poly substance abuse. Patient is a poor historian and often verbalizes he cannot remember or is confused. Patient had been seen by ED Dr. Fraire on a prior occasion with similar symptoms in the past and deficits, and their is documented similar deficits by Dr. Childs Hospitalist on prior hospitalizations . He has known encephalomalacia. But when hospital staff attempted to get the patient to stand up and ambulate he was unable to do so independently, and notes that he has been frequently falling recently, the patient lives in independent living and so felt unsafe to send the patient home without observational evaluation for new onset CVA. Patient denies any pain other than in his left arm, left cheek,fevers, chest pain, shortness of breath, nausea, vomiting, abdominal pain, changes in vision, headache, worsening coordination, urgency, frequency, or dysuria. He did note some shaking of his arms that is not presenting at the time of admit exam. Patient denies and increased weakness on his left side from baseline or changes in his speech. And denies any pain on exam. At the moment of admit exam patient is looking at the menu and most in-patient to know when he will be getting some food. Patient has a history of polysubstance abuse although he states he is using tobacco and is not drinking alcohol or using any recreational drugs. He also has a history of stroke with residual left-sided weakness and facial droop according to old chart, CAD status post CABG with valvuloplasty 2010, hypertension, history of osteomyelitis and personality disorder. Patient's admit vitals temp 98.8, BP 132/66, HR 75, RR 18, O2 saturation 97% on room air. Labs WBC 15.3 with a left shift, HGB 12.3, HCT 36.7, BUN 28, BUN creatinine ratio 29.8, AST 134.Head CT: No acute intracranial abnormality. Large region of right frontal encephalomalacia redemonstrated consistent with sequelae of a prior infarct. Last echo was 08/27/2019: Severely reduced systolic function, Heart Failure with an EF of 25-30%, mild aortic stenosis, last MRI was 12/23/2018, last head CT 08/13/2019. Patient admitted to observation to monitor and evaluate for CVA Discharge Providers Provider Date of admission: 07/21/20 22:24 Discharge Date: 07/24/20 Primary care physician: Bossman Shah DO Consults: 07/21/20 02:16 Consult to Discharge Planning Routine Comment: Consult to Occupational Therapy Evaluate & Treat Comment: Physician Instructions: Evaluate and treat Consult to Physical Therapy Evaluate & Treat Comment: Physician Instructions: Evaluate and Treat Consult to Speech Therapy Evaluate & Treat Comment: Physician Instructions: Evaluate and treat 07/21/20 03:47 Consult to Dietitian, Adult Routine Comment: Reason For Exam: pt reports loss of appetite and food scarcity 07/24/20 12:40 Consult to Home Health Routine Comment: toxic encephalopathy, CHF Reason For Exam: Set up RN/PT/ST for d/c home today Discharge provider: Jack Cool MD Summary Hospital Course Discharge Diagnosis: 1. Toxic encephalopathy, benzodiazepene withdrawal with seizure 2. CAD 3. right CVA, with left sided weakness 4. Chronic systolic CHF, EF 25-30% 5. Mild aortic stenosis 6. HTN 7. Narcissitic and paranoid personality disorder, bipolar 8. Chronic low back pain 9. Cognitive impairment Hospital Course: Mr. Erwin was admitted with weakness and confusion. He had benzo withdrawal in the hospital and a withdrawal seizure. Initially there was concern for possible tia/cva however he had a negative MRI of his head for any acute process with evidence of encephalomalacia from an old stroke. He actually is on multiple medications that can cause confusion including recently taking muscle relaxants. Suspect that acute encephalopathy is related to polypharmacy. He was restarted on his home medications but recommended to avoid muscle relaxers as he had been stable on his previous medications. The rest of his medical issues remained stable in the hospital. he was offered SNF placement but he declined and was discharged with home health. Status at Discharge Cognitive/behavioral status at discharge: oriented Functional status at discharge: uses cane/walker Overall status at discharge: patient is back to baseline Time Spent with Patient Time spent: Greater than 30 minutes Exam Vital Signs (past 8 hours): Oxygen Delivery Method Room Air Oxygen Flow Rate 0 Narrative Exam Narrative: General: Patient is a well-developed, well-nourished in no distress at this time. HEENT: Normocephalic, abrasion to L cheek, healing. Lungs: no wheezes, rhonchi, or rales. Cardio: regular rate and rhythm without murmur, rubs, or gallops, no carotid bruit, no cardiac pulsations present. Abdomen: Soft nontender, negative for organomegaly, or masses. Bowel sounds are present in all 4 quadrants without guarding or rebound, no CVA tenderness. Musculoskeletal: Muscle strength slightly decreased on the left and tone are equal within normal limits, no deformity, crepitus, effusions, cyanosis, clubbing or edema present. Full range of motion intact radial and pedal pulses are normal. Skin: Warm dry and intact without rashes, ulcerations or petechiae. Neuro: Alert and orientated x2, poor historian, slight left facial droop, and decreased strength and small motor coordination dexterity a in the left hand in comparison to the right, strength is +4/5Left-+5/5 Right. Cranial nerves grossly intact b/l. Psych: Patient has a moderate-kept appearance, appropriate affect today. Objective Labs Result Diagrams: 07/23/20 05:01 07/23/20 05:01 [facility] Medical History (Updated 07/21/20 @ 02:37 by JACLYN Hollis) Anxiety Bipolar II disorder, mild, depressed, with anxious distress Coronary artery disease Discitis HTN (hypertension) 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) Surgical History (Updated 07/21/20 @ 02:37 by JACLYN Hollis) H/O valvuloplasty S/P CABG x 4 Family History (Updated 07/21/20 @ 05:42 by Priscila Donis, [facility] Grandfather Heart attack Family/Other Heart attack Social History household members: family Smoking Status: Current every day smoker alcohol intake: former Discharge Plan Discharge Plan Patient Disposition: Home Health Service Provider Discharge Comment: Mr. Erwin came to the hospital with weakness. He had workup done that did not show any new stroke. It was thought he may have had a side effect from taking his medications. He improved in the hospital, and on day of discharge he was back to his normal. He should follow up with his primary care doctor in 1-2 weeks. Discharge orders & Medications Prescriptions: Continued Algal [place]-3 DHA 200 mg capsule 200 mg PO DAILY RF: 0 atorvastatin 80 mg tablet 80 mg PO BEDTIME RF: 0 metoprolol succinate 25 mg capsule,sprinkle,ER 24hr 25 mg PO DAILY RF: 0 hydroxyzine HCl 25 mg tablet 50 mg PO Q6-8H PRN (Reason: Anxiety) Qty: 180 RF: 3 cyclobenzaprine 5 mg tablet 5 mg PO TID PRN (Reason: Muscle Spasm) RF: 0 bupropion HCl 150 mg tablet extended release 24 hr 450 mg PO QAM Qty: 90 RF: 3 olanzapine 5 mg tablet 15 mg PO BEDTIME Qty: 90 RF: 3 diazepam 5 mg tablet 5 mg PO TID PRN (Reason: anxiety) Qty: 90 RF: 0 aspirin 81 mg Tablet,Chewable 81 mg PO DAILY RF: 0 spironolactone 25 mg tablet 12.5 mg PO DAILY RF: 0 gabapentin 100 mg capsule 400 mg PO TID RF: 0 furosemide 20 mg tablet 20 mg PO DAILY Qty: 14 RF: 0 hydrocodone-acetaminophen 5-325 mg tablet 1 tab PO Q4-6H PRN (Reason: pain) Qty: 10 RF: 0 lidocaine [Lidoderm] 5 % adhesive patch,medicated 1 patch TOP DAILY Qty: 15 RF: 0 ibuprofen [Advil] 200 mg Tablet 400 mg PO QID PRN (Reason: Pain (Scale Score 1-3)) RF: 0 celecoxib [Celebrex] 200 mg capsule 200 mg PO DAILY RF: 0 sertraline [Zoloft] 25 mg tablet 25 mg PO DAILY RF: 0 lisinopril 20 mg tablet 20 mg PO DAILY RF: 0 Follow up/Referrals: Bossman Shah DO [Primary Care Provider] - Diet/Activity/Treatments Diet: Diet as Tolerated Discharge Data Primary Care Provider: Bossman Shah Quality VTE Deep Vein Thrombosis/Pulmonary Embolism Present on Admission: No
== END 2020-07-24 13:04 | disposition home health service (06) | DRG 917 ==
LOC: ED 07-21 02:01 → AC 07-21 02:06 → ICU 07-22 08:33
PROVIDERS: Internal Medicine; Admitting Provider Nurse Practitioner Family; Emergency Provider Emergency Medicine; PCP Internal Medicine; Referring Provider Emergency Medicine; Visit Provider Nurse Practitioner Family
DX: T48.1X1A Poisoning by skeletal muscle relaxants [neuromuscular blocking agents], accidental (unintentional), initial encounter (principal); G92 Toxic encephalopathy; F13.239 Sedative, hypnotic or anxiolytic dependence with withdrawal, unspecified; I50.22 Chronic systolic (congestive) heart failure; F31.81 Bipolar II disorder; I69.354 Hemiplegia and hemiparesis following cerebral infarction affecting left non-dominant side; R56.9 Unspecified convulsions; T42.4X1A Poisoning by benzodiazepines, accidental (unintentional), initial encounter; I11.0 Hypertensive heart disease with heart failure; F60.81 Narcissistic personality disorder; F60.0 Paranoid personality disorder; G89.29 Other chronic pain; M54.5 Low back pain; I25.10 Atherosclerotic heart disease of native coronary artery without angina pectoris; Z95.1 Presence of aortocoronary bypass graft; Z20.822 Contact with and (suspected) exposure to COVID-19; Z91.81 History of falling; G31.84 Mild cognitive impairment of uncertain or unknown etiology; I69.398 Other sequelae of cerebral infarction; G93.89 Other specified disorders of brain
CPT/HCPCS: 36415; 36592; 70450; 70548; 70553; 80048; 80053; 80061; 80305; 81003; 82140; 82962; 83735; 84484; 85025; 85610; 85730; 87635; 92507; 92523; 92610; 93005; 96361; 96365; 97110; 97116; 97162; 97167; 97530; 97535; 99285; 99406; G0378; J1650; J2060

== ENCOUNTER 2020-08-01 08:54 | Emergency (ER) | payer OTHER, SELFPAY ==
[2020-07-21 03:41] VITALS: BMI 26.3
[2020-08-01] VITALS (12 sets, daily range): BP systolic 78–118; BP diastolic 50–69; PULSE 57–78; RESP 16–26; TEMP 37.2; O2SAT 93–99; BMI 26.6
--- NOTE | 2020-08-01 09:08 | DI.RAD.S_ITS ---
PROCEDURE: XR CHEST 1V INDICATIONS: chest pain TECHNIQUE: One view of the chest was acquired. COMPARISON: [facility], CR, XR CHEST 1V, 01/02/2020, 11:52. FINDINGS: Surgical changes and devices: Remote CABG and valve Lungs and pleura: Lungs are clear. No pleural effusions or pneumothorax. Mediastinum: Mediastinal contours appear normal. Heart size is normal. Bones and chest wall: No suspicious bony lesions. Overlying soft tissues appear unremarkable. IMPRESSION: No evidence acute pulmonary process. Dictated by: Pavel Arauz M.D. on 08/01/2020 at 9:52 Approved by: Pavel Arauz M.D. on 08/01/2020 at 9:52
--- NOTE | 2020-08-01 09:19 | ED.SYNCOPE ---
HPI - Syncope General Chief Complaint: Dizziness Stated Complaint: pre syncopal episode today Time Seen by Provider: 08/01/20 09:05 Source: patient and other Mode of arrival: Wheelchair History of Present Illness HPI narrative: Patient is a 55-year-old male who presents with a near syncopal episode. He was standing waiting to check in for his psychiatry appointment when he got very lightheaded thought he might passed out and he was able to kneel down and he never did pass out. He denies any chest pain palpitations numbness tingling or weakness. He says that he is having a lot of stress in regards to his mother. Dr. mcgowan actually concern for increase use of benzodiazepine use requiring frequent refills and can not is concerned about his use. Here for weakness and facial cellulitis along with TIA on 07/20/2020 he had an MRI at that time. It was found that he had toxic encephalopathy from benzodiazepine withdrawal and seizures. He also has right CVA with left-sided weakness. He has chronic ongoing neck and back pain not any worse today than usual. He did take 4 Tylenol at around 8:00 a.m.. complaint: felt faint Related Data Home Medications Medication Instructions Recorded Confirmed ibuprofen [Advil] 400 mg PO QID PRN 12/14/17 07/21/20 lisinopril 20 mg tablet 20 mg PO DAILY 07/15/18 07/21/20 aspirin 81 mg PO DAILY 08/13/19 07/21/20 spironolactone 12.5 mg PO DAILY 08/13/19 07/21/20 atorvastatin 80 mg tablet 80 mg PO BEDTIME 01/23/20 07/21/20 docosahexaenoic acid 200 mg capsule 200 mg PO DAILY 01/23/20 07/21/20 gabapentin 100 mg capsule 400 mg PO TID cap 01/23/20 07/21/20 metoprolol succinate 25 mg capsule 25 mg PO DAILY 01/23/20 07/21/20 sprinkle, ext. release 24 hr cyclobenzaprine 5 mg tablet 5 mg PO TID PRN 04/11/20 07/21/20 celecoxib [Celebrex] 200 mg PO DAILY 07/21/20 07/21/20 sertraline [Zoloft] 25 mg PO DAILY 07/21/20 07/21/20 Previous Rx's Medication Instructions Recorded furosemide 20 mg PO DAILY #14 tab 09/30/19 hydrocodone-acetaminophen 1 tab PO Q4-6H PRN #10 tab 04/16/20 lidocaine [Lidoderm] 1 patch TOP DAILY #15 each 04/16/20 olanzapine 5 mg tablet 15 mg PO BEDTIME #90 tab 05/23/20 diazepam 5 mg tablet 5 mg PO TID PRN #90 tab 07/16/20 bupropion HCl 150 mg 24 hr tablet, 450 mg PO QAM #90 tab 07/27/20 extended release hydroxyzine HCl 25 mg tablet 50 mg PO Q6-8H PRN #180 tab 07/30/20 Allergies Allergy/AdvReac Type Severity Reaction Status Date / Time No Known Drug Allergies Allergy Verified 07/20/20 19:33 Review of Systems Review of Systems ROS Unobtainable: All systems reviewed & are unremarkable except as noted in HPI and below Constitutional Constitutional: Denies chills, Denies fever(s), Denies lethargy and Denies weakness ENT Ears, Nose, Mouth, and Throat: Denies dizziness Cardiovascular Cardiovascular: Denies chest pain, Denies syncope, Denies rapid heart rate, Denies leg edema, Reports lightheadedness, Denies dyspnea and Denies dyspnea on exertion Respiratory Respiratory: Denies cough, Denies dyspnea, Denies dyspnea on exertion and Denies wheezing Gastrointestinal Gastrointestinal: Denies abdominal pain, Denies change in bowel habits, Denies diarrhea, Denies nausea and Denies vomiting Genitourinary Genitourinary: Denies urinary hesitancy and Denies urinary incontinence Genitourinary: Denies urinary incontinence and Denies urinary hesitancy Musculoskeletal Musculoskeletal: Denies back pain and Denies myalgias Integumentary/Breasts Skin/Breast: Denies pruritus, Denies erythema, Denies rash and Denies wounds Neurologic Neurologic: Denies dizziness, Denies syncope and Denies weakness Allergic/Immunologic Allergic/Immunologic: Denies wheezing 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) Surgical History H/O valvuloplasty S/P CABG x 4 Family History Grandfather Heart attack Family/Other Heart attack Social History household members: family Smoking Status: Current every day smoker alcohol intake: former Smoking Status: Current every day smoker tobacco type: cigarettes alcohol intake frequency: 0-2 drinks per day Substance Use Type: does not use Exam Initial Vital Signs Initial Vital Signs: Vital Signs Temperature 99.0 F 08/01/20 09:05 Pulse Rate 74 08/01/20 09:05 Respiratory Rate 18 08/01/20 09:05 Blood Pressure 118/69 08/01/20 09:05 Pulse Oximetry 99 08/01/20 09:05 GENERAL: 55-year-old male slightly disheveled no eye contact HEENT: Head atraumatic,EOMI, pupils reactive, face symmetric, moist mucous membranes CARDIOVASCULAR: Regular rate and rhythm without murmurs, rubs or gallops. RESPIRATORY: Breath sounds equal bilaterally, no wheezes rales or rhonchi. ABDOMEN: Soft, nontender. Normoactive bowel sounds all 4 quadrants. No guarding or rebound. BACK: No vertebral tenderness no step-off EXTREMITIES: Normal range of motion, no clubbing or edema. Neurovascularly intact NEUROLOGICAL: Alert and oriented x4.Normal gait and speech. Cranial nerves II through XII grossly intact. Good [id number], good [id number], strength equal bilaterally, no dysarthria or aphasia, sensation in tact to soft touch bilaterally, no visual changes, no facial droop SKIN: Warm, dry, no laceration, no petechiae, no rashes or lesions. Scores NIH Stroke Scale Level of Conciousness: Alert, keenly responsive Ask month/age: Answers both questions correctly. Open/close eyes, close hand: Performs both tasks correctly Best gaze horizontal: Normal Visual estrella: No visual loss Facial palsy: Normal symetrical movement Left arm drift: No drift for full 10 sec Right arm drift: No drift for full 10 sec Left leg drift: No drift for full 5 sec Right leg drift: No drift for full 5 sec Limb ataxia: Absent Sensory on face/arms/legs: Normal, no sensory loss Best language: No aphasia, normal Dysarthria: Normal Extinction or inattention: No abnormality Total NIH Stroke scale score: 0 Course Orders Ordered: ED Orders 08/01/20 09:05 EKG-12 Lead Stat 08/01/20 09:08 XR chest 1V Stat 08/01/20 09:20 Complete Blood Count AUTO DIFF Stat Comprehensive Metabolic Panel Stat Ethanol (ETOH) Stat Lipase Stat Troponin & CK Cardiac Panel Stat Discontinued Medications Sodium Chloride (Normal Saline 0.9%) 1,000 mls @ 1,000 mls/hr IV BOLUS ONE Stop: 08/01/20 10:58 Last Infusion: 08/01/20 11:23 Dose: 0 mls/hr Documented by: Admin: 08/01/20 10:02 Dose: 1,000 mls/hr Documented by: DEXTER Vital Signs Vital signs: Vital Signs - 8 hr 08/01/20 09:05 08/01/20 09:36 08/01/20 09:41 Temperature 99.0 F Pulse Rate 74 72 66 Pulse Rate [Orthostatic Lying] Pulse Rate [Orthostatic Sitting] Pulse Rate [Orthostatic Standing] Respiratory Rate 18 23 18 Blood Pressure 118/69 94/53 L Blood Pressure [Orthostatic Lying] Blood Pressure [Orthostatic Sitting] Blood Pressure [Orthostatic Standing] Pulse Oximetry 99 96 08/01/20 09:45 08/01/20 09:47 08/01/20 09:50 Temperature Pulse Rate 64 74 Pulse Rate [Orthostatic Lying] 62 Pulse Rate [Orthostatic Sitting] 63 Pulse Rate [Orthostatic Standing] 78 Respiratory Rate 20 23 Blood Pressure 108/64 84/60 L Blood Pressure [Orthostatic Lying] 94/53 L Blood Pressure [Orthostatic Sitting] 108/64 Blood Pressure [Orthostatic Standing] 84/60 L Pulse Oximetry 96 97 08/01/20 10:00 08/01/20 10:01 08/01/20 10:16 Temperature Pulse Rate 59 L 61 57 L Pulse Rate [Orthostatic Lying] Pulse Rate [Orthostatic Sitting] Pulse Rate [Orthostatic Standing] Respiratory Rate 26 H 18 17 Blood Pressure 78/50 L 102/53 L Blood Pressure [Orthostatic Lying] Blood Pressure [Orthostatic Sitting] Blood Pressure [Orthostatic Standing] Pulse Oximetry 93 96 96 08/01/20 10:30 08/01/20 11:00 08/01/20 11:01 Temperature Pulse Rate 57 L 59 L 60 Pulse Rate [Orthostatic Lying] Pulse Rate [Orthostatic Sitting] Pulse Rate [Orthostatic Standing] Respiratory Rate 20 16 18 Blood Pressure 112/56 L Blood Pressure [Orthostatic Lying] Blood Pressure [Orthostatic Sitting] Blood Pressure [Orthostatic Standing] Pulse Oximetry 98 98 98 MDM - Syncope Lab Data Attestation: I reviewed the patient's lab results. Result diagrams: 08/01/20 09:20 08/01/20 09:20 Labs: Lab Results 08/01/20 08/01/20 08/01/20 Range/Units 09:20 09:20 09:20 WBC 6.3 (4.5-11.0) X10^3/uL RBC 4.59 (4.5-5.9) X10^6/uL Hgb 13.7 (13.5-17.5) g/dL Hct 40.6 L (41-53) % MCV 88.6 (80-100) fL MCH 29.9 (26-34) PG MCHC 33.8 (30-36) % RDW 12.7 (11.6-14.8) % Plt Count 189 (150-400) X10^3/uL Neut % (Auto) 66.8 (50-75) % Lymph % (Auto) 22.0 L (25-40) % Porter % (Auto) 6.2 (3-14) % Eos % (Auto) 4.3 H (2-4) % Baso % (Auto) 0.7 (0-2) % Neut # (Auto) 4200 (2398-8174) /uL Lymph # (Auto) 1400 (9318-9684) /uL Porter # (Auto) 400 (0-900) /uL Eos # (Auto) 300 (0-450) /uL Baso # (Auto) 0 (0-100) /uL Sodium 139 (137-145) mmol/L Potassium 3.8 (3.4-5.1) mmol/L Chloride 105 (98-107) mmol/L Carbon Dioxide 26 (22-32) mmol/L BUN 27 H (9-20) mg/dL Creatinine 0.93 (0.66-1.25) mg/dL Estimated GFR > 60.0 (>60) mL/min BUN/Creatinine Ratio 29.0 H (6-22) Glucose 109 H (70-100) mg/dL Calcium 9.7 (8.4-10.2) mg/dL Total Bilirubin 0.6 (0.2-1.3) mg/dL AST 22 (17-59) IU/L ALT 27 (<50) IU/L Alkaline Phosphatase 46 (38-126) U/L Total Creatine Kinase 68 (55-170) U/L CK-MB (CK-2) TNP CK-MB (CK-2) Rel Index TNP Troponin I < 0.012 (0.01-0.034) ng/mL Total Protein 7.5 (6.3-8.2) g/dL Albumin 4.7 (3.5-5.0) g/dL Globulin 2.8 (1.7-4.1) g/dL Albumin/Globulin Ratio 1.7 (1.0-2.8) Lipase 79 (23-300) U/L Ethyl Alcohol < 10 ( - 10) mg/dL ECG Data Attestation: I personally reviewed and interpreted this ECG as follows: Interpretation: Normal sinus rhythm rate 70 p.r. interval 176 QRS [address] changes in V2 V3 and V4 similar to previous EKG on 07/20/2020 MDM Narrative Medical decision making narrative: Patient actually has positive orthostatics blood pressure drops into the 80s. He is given 1 L of fluid. He has no neurologic deficits that are new at this time. He was diagnosed with CVA by MRI a couple weeks ago. At this time no need for repeat imaging. He did not pass out or hit his head. He is now stating that he needs to go the room is too small. He is hemodynamically stable blood work in physical exam overall reassuring. Discharge Plan Departure Patient Disposition: Home Clinical Impression: Orthostatic hypotension Instructions: Orthostatic Hypotension Activity Restrictions/Additional Instructions: *You have been diagnosed with orthostatic hypotension *What to do: Your likely lightheaded from decreased hydration. Please increase your fluid intake *Continue to take medications as directed *Follow up with your primary care provider in 2-3 days *Return to ER if you should have increased dizziness weakness, lightheadedness, palpitations chest pain or any new, worsening or concerning symptoms Prescriptions: No Action Algal [place]-3 DHA 200 mg capsule 200 mg PO DAILY RF: 0 atorvastatin 80 mg tablet 80 mg PO BEDTIME RF: 0 metoprolol succinate 25 mg capsule,sprinkle,ER 24hr 25 mg PO DAILY RF: 0 cyclobenzaprine 5 mg tablet 5 mg PO TID PRN (Reason: Muscle Spasm) RF: 0 olanzapine 5 mg tablet 15 mg PO BEDTIME Qty: 90 RF: 3 diazepam 5 mg tablet 5 mg PO TID PRN (Reason: anxiety) Qty: 90 RF: 0 bupropion HCl 150 mg tablet extended release 24 hr 450 mg PO QAM Qty: 90 RF: 3 hydroxyzine HCl 25 mg tablet 50 mg PO Q6-8H PRN (Reason: Anxiety) Qty: 180 RF: 3 aspirin 81 mg Tablet,Chewable 81 mg PO DAILY RF: 0 spironolactone 25 mg tablet 12.5 mg PO DAILY RF: 0 gabapentin 100 mg capsule 400 mg PO TID RF: 0 furosemide 20 mg tablet 20 mg PO DAILY Qty: 14 RF: 0 hydrocodone-acetaminophen 5-325 mg tablet 1 tab PO Q4-6H PRN (Reason: pain) Qty: 10 RF: 0 lidocaine [Lidoderm] 5 % adhesive patch,medicated 1 patch TOP DAILY Qty: 15 RF: 0 ibuprofen [Advil] 200 mg Tablet 400 mg PO QID PRN (Reason: Pain (Scale Score 1-3)) RF: 0 celecoxib [Celebrex] 200 mg capsule 200 mg PO DAILY RF: 0 sertraline [Zoloft] 25 mg tablet 25 mg PO DAILY RF: 0 lisinopril 20 mg tablet 20 mg PO DAILY RF: 0 Referrals: Tano Mathis MD [Primary Care Provider] -
[2020-08-01 09:35] LABS: Add Manual Diff / Slide Review NO; Basophils Absolute Auto 0 /uL (0-100); Basophils Percent Auto 0.7 % (0-2); Eosinophils Absolute Auto 300 /uL (0-450); Eosinophils Percent Auto 4.3 % (2-4); Hematocrit 40.6 % (41-53); Hemoglobin 13.7 g/dL (13.5-17.5); Lymphocytes Absolute Auto 1400 /uL (1100-4500); Mean Corpuscular HGB Conc 33.8 % (30-36); Mean Corpuscular Hemoglobin 29.9 PG (26-34); Mean Corpuscular Volume 88.6 fL (80-100); Monocytes Absolute Auto 400 /uL (0-900); Monocytes Percent Auto 6.2 % (3-14); Neutrophils Absolute Auto 4200 /uL (1500-7000); Neutrophils Percent Auto 66.8 % (50-75); Platelet Count 189 X10^3/uL (150-400); Red Blood Cell Count 4.59 X10^6/uL (4.5-5.9); Red Cell Distribution Width 12.7 % (11.6-14.8); White Blood Cell Count 6.3 X10^3/uL (4.5-11.0)
[2020-08-01 09:49] LABS: Alanine Aminotransferase 27 IU/L (<50); Albumin 4.7 g/dL (3.5-5.0); Albumin Globulin Ratio 1.7 (1.0-2.8); Alkaline Phosphatase 46 U/L (38-126); Aspartate Aminotransferase 22 IU/L (17-59); Bilirubin Total 0.6 mg/dL (0.2-1.3); Blood Urea Nitrogen 27 mg/dL (9-20); Calcium 9.7 mg/dL (8.4-10.2); Carbon Dioxide 26 mmol/L (22-32); Chloride 105 mmol/L (98-107); Creatine Kinase 68 U/L (55-170); Estimated Glomerular Filt Rate > 60.0 mL/min (>60); Globulin 2.8 g/dL (1.7-4.1); Glucose 109 mg/dL (70-100); HEMOLYSIS 15 (0-50); Lipase 79 U/L (23-300); Potassium 3.8 mmol/L (3.4-5.1); Sodium 139 mmol/L (137-145); Total Protein 7.5 g/dL (6.3-8.2)
[2020-08-01 09:59] LABS: Ethanol (ETOH) < 10 mg/dL
[2020-08-01 10:00] LABS: Troponin I < 0.012 ng/mL (0.01-0.034)
[2020-08-01] MEDS: SODIUM CHLORIDE 0.9% 1,000 ML 1000 ML IV (10:02)
== END 2020-08-01 11:33 | disposition home or self-care (01) ==
PROVIDERS: Emergency Provider Emergency Medicine; PCP Family Medicine Sports Medicine
DX: I95.1 Orthostatic hypotension (principal); I69.354 Hemiplegia and hemiparesis following cerebral infarction affecting left non-dominant side
CPT/HCPCS: 36415; 71045; 80053; 80320; 82550; 83690; 84484; 85025; 93005; 93010; 96360; 99284

== ENCOUNTER → 2020-08-09 12:35 | Outpatient (CLI) | payer MEDICARE, SELFPAY ==
[2020-07-21 03:41] VITALS: BMI 26.3
[2020-08-09] MEDS: COVID-19 VACC #1, MRNA(MOD) 100 MCG/0.5 ML VIAL IM (12:44)
== END ==
PROVIDERS: PCP Family Medicine Sports Medicine; Visit Provider Internal Medicine
DX: Z23 Encounter for immunization (principal)
CPT/HCPCS: 0011A; 91301

== ENCOUNTER → 2020-09-28 14:20 | Outpatient (CLI) | payer MEDICARE, SELFPAY ==
[2020-07-21 03:41] VITALS: BMI 26.3
[2020-09-28] MEDS: COVID-19 VACC #2, MRNA(MOD) 100 MCG/0.5 ML VIAL IM (14:25)
== END ==
PROVIDERS: PCP Family Medicine Sports Medicine; Visit Provider Internal Medicine
DX: Z23 Encounter for immunization (principal)
CPT/HCPCS: 0012A; 91301

== ENCOUNTER 2020-10-05 17:30 | Emergency (ER) | payer OTHER, SELFPAY ==
[2020-07-21 03:41] VITALS: BMI 26.3
[2020-10-05 17:44] VITALS: BP 96/54; PULSE 110; RESP 20; TEMP 36.8; O2SAT 96; BMI 26.2
--- NOTE | 2020-10-05 17:50 | PC.NURSE ---
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 Pt reports not normally walking that far. Pt denies fall, trauma, normal sensation.
== END 2020-10-05 18:44 | disposition left against medical advice (07) ==
PROVIDERS: Emergency Provider Emergency Medicine; PCP Family Medicine Sports Medicine
CPT/HCPCS: 99281

== ENCOUNTER 2020-11-15 11:47 | Emergency (ER) | payer OTHER, SELFPAY ==
[2020-07-21 03:41] VITALS: BMI 26.3
[2020-11-15 12:16] VITALS: BP 136/64; PULSE 59; RESP 14; TEMP 36.1; O2SAT 96; BMI 25.0
--- NOTE | 2020-11-15 12:20 | DI.RAD.S_ITS ---
PROCEDURE: XR TIBIA FIBULA LT 2V INDICATIONS: fall on Thursday,wrist and lower leg injury TECHNIQUE: 2 views of the tibia and fibula were acquired. COMPARISON: None. FINDINGS: Bones: No fractures or dislocations. No suspicious bony lesions. Soft tissues: No suspicious soft tissue calcifications or masses. IMPRESSION: No fracture. No osseous lesion. If symptoms and/or clinical suspicion for pathology persists, further assessment with repeat radiographs (7-10 days) or advanced imaging (e.g. CT, MRI or bone scan) should be considered. Dictated by: Gris Hassan MD, PhD on 11/15/2020 at 13:06 Approved by: Gris Hassan MD, PhD on 11/15/2020 at 13:07
--- NOTE | 2020-11-15 12:20 | DI.RAD.S_ITS ---
PROCEDURE: XR WRIST LT MIN 3V INDICATIONS: fall on Thursday,wrist and lower leg injury TECHNIQUE: 4 views of the wrist were acquired. COMPARISON: None. FINDINGS: Bones: No fractures or dislocations. No suspicious bony lesions. Scaphoid view: Scaphoid is intact Soft tissues: No suspicious soft tissue calcifications. Surgical clips anterior to the radial styloid process and in the mid forearm anterior soft tissues. IMPRESSION: No fracture. No acute osseous lesion. If symptoms and/or clinical suspicion for pathology persists, further assessment with repeat radiographs (7-10 days) or advanced imaging (e.g. CT, MRI or bone scan) should be considered. Dictated by: Gris Hassan MD, PhD on 11/15/2020 at 13:05 Approved by: Gris Hassan MD, PhD on 11/15/2020 at 13:06
--- NOTE | 2020-11-15 15:09 | PC.NURSE ---
Pt states last ibuprofen was at 0900. initially stated 1030 but corrected himself to 0900.
--- NOTE | 2020-11-15 15:11 | PC.NURSE ---
c\o left wrist and left lower leg pain w/o sign of injury. Able to walk, full CSM on both areas of pain.
[2020-11-15] MEDS: IBUPROFEN 400 MG TABLET 800 MG PO (15:15)
[2020-11-15] MEDS: ACETAMINOPHEN 325 MG TABLET 975 MG PO (15:16)
--- NOTE | 2020-11-15 15:47 | ED_ITS ---
HPI - Fall General Chief Complaint: Fall Stated Complaint: SLIPPED IN SHOWER. RIGHT LEG/HIP PAIN Time Seen by Provider: 11/15/20 15:30 Source: patient Mode of arrival: Ambulatory Related Data Home Medications Medication Instructions Recorded Confirmed ibuprofen 200 mg tablet (Advil) 400 mg PO QID PRN 12/14/17 11/12/20 lisinopril 20 mg tablet 20 mg PO DAILY 07/15/18 11/12/20 aspirin 81 mg chewable tablet 81 mg PO DAILY 08/13/19 11/12/20 spironolactone 25 mg tablet 12.5 mg PO DAILY 08/13/19 11/12/20 atorvastatin 80 mg tablet 80 mg PO BEDTIME 01/23/20 11/12/20 docosahexaenoic acid 200 mg 200 mg PO DAILY 01/23/20 11/12/20 capsule (Algal [place]-3 DHA) gabapentin 100 mg capsule 400 mg PO TID cap 01/23/20 11/12/20 metoprolol succinate 25 mg capsule 25 mg PO DAILY 01/23/20 11/12/20 sprinkle, ext. release 24 hr cyclobenzaprine 5 mg tablet 5 mg PO TID PRN 04/11/20 11/12/20 celecoxib 200 mg capsule (Celebrex) 200 mg PO DAILY 07/21/20 11/12/20 Previous Rx's Medication Instructions Recorded furosemide 20 mg tablet 20 mg PO DAILY #14 tab 09/30/19 hydrocodone 5 mg-acetaminophen 325 1 tab PO Q4-6H PRN #10 tab 04/16/20 mg tablet lidocaine 5 % topical patch 1 patch TOP DAILY #15 each 04/16/20 (Lidoderm) lithium carbonate 300 mg capsule 300 mg PO BEDTIME #30 cap 08/30/20 olanzapine 5 mg tablet 15 mg PO BEDTIME #90 tab 08/30/20 bupropion HCl 150 mg 24 hr tablet, 450 mg PO QAM #90 tab 10/25/20 extended release hydroxyzine HCl 25 mg tablet See Rx Instructions .ROUTE 10/25/20 .COMPLEX #180 tab Allergies Allergy/AdvReac Type Severity Reaction Status Date / Time No Known Drug Allergies Allergy Verified 11/15/20 12:15 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) Surgical History H/O valvuloplasty S/P CABG x 4 Family History Grandfather Heart attack Family/Other Heart attack Social History household members: family Smoking Status: Current every day smoker alcohol intake: former Smoking Status: Current every day smoker tobacco type: cigarettes alcohol intake frequency: other Substance Use Type: does not use Exam Initial Vital Signs Initial Vital Signs: Vital Signs Temperature 97.0 F L 11/15/20 12:16 Pulse Rate 59 L 11/15/20 12:16 Respiratory Rate 14 11/15/20 12:16 Blood Pressure 136/64 11/15/20 12:16 Pulse Oximetry 96 11/15/20 12:16 Course Orders Ordered: ED Orders 11/15/20 12:20 XR tibia fibula LT 2V Stat XR wrist LT min 3V Stat Discontinued Medications Acetaminophen (Acetaminophen 325 Mg Tablet) 975 mg PO NOW ONE Stop: 11/15/20 15:09 Last Admin: 11/15/20 15:16 Dose: 975 mg Documented by: JAVIER Ibuprofen (Ibuprofen 400 Mg Tablet) 800 mg PO NOW ONE Stop: 11/15/20 15:09 Last Admin: 11/15/20 15:15 Dose: 800 mg Documented by: JAVIER Vital Signs Vital signs: Vital Signs - 8 hr 11/15/20 12:16 Temperature 97.0 F L Pulse Rate 59 L Respiratory Rate 14 Blood Pressure 136/64 Pulse Oximetry 96 Discharge Plan Departure Prescriptions: No Action Algal [place]-3 DHA 200 mg capsule 200 mg PO DAILY RF: 0 atorvastatin 80 mg tablet 80 mg PO BEDTIME RF: 0 metoprolol succinate 25 mg capsule,sprinkle,ER 24hr 25 mg PO DAILY RF: 0 cyclobenzaprine 5 mg tablet 5 mg PO TID PRN (Reason: Muscle Spasm) RF: 0 olanzapine 5 mg tablet 15 mg PO BEDTIME Qty: 90 RF: 3 lithium carbonate 300 mg capsule 300 mg PO BEDTIME Qty: 30 RF: 0 bupropion HCl 150 mg tablet extended release 24 hr 450 mg PO QAM Qty: 90 RF: 3 hydroxyzine HCl 25 mg tablet See Rx Instructions .ROUTE .COMPLEX Qty: 180 RF: 0 aspirin 81 mg Tablet,Chewable 81 mg PO DAILY RF: 0 spironolactone 25 mg tablet 12.5 mg PO DAILY RF: 0 gabapentin 100 mg capsule 400 mg PO TID RF: 0 furosemide 20 mg tablet 20 mg PO DAILY Qty: 14 RF: 0 hydrocodone-acetaminophen 5-325 mg tablet 1 tab PO Q4-6H PRN (Reason: pain) Qty: 10 RF: 0 lidocaine [Lidoderm] 5 % adhesive patch,medicated 1 patch TOP DAILY Qty: 15 RF: 0 ibuprofen [Advil] 200 mg Tablet 400 mg PO QID PRN (Reason: Pain (Scale Score 1-3)) RF: 0 celecoxib [Celebrex] 200 mg capsule 200 mg PO DAILY RF: 0 lisinopril 20 mg tablet 20 mg PO DAILY RF: 0 Referrals: Tano Mathis MD [Primary Care Provider] -
[2020-11-15 15:58] VITALS: BP 136/78; PULSE 53; RESP 14; O2SAT 95
== END 2020-11-15 16:12 | disposition left against medical advice (07) ==
PROVIDERS: Emergency Provider Emergency Medicine; PCP Family Medicine Sports Medicine
DX: S69.92XA Unspecified injury of left wrist, hand and finger(s), initial encounter (principal); S89.92XA Unspecified injury of left lower leg, initial encounter; S09.90XA Unspecified injury of head, initial encounter; W19.XXXA Unspecified fall, initial encounter
CPT/HCPCS: 73110; 73590; 99283

== ENCOUNTER 2020-12-14 17:39 | Emergency (ER) | payer OTHER, SELFPAY ==
[2020-07-21 03:41] VITALS: BMI 26.3
[2020-12-14 18:18] VITALS: BP 127/69; PULSE 81; RESP 16; TEMP 36.9; O2SAT 100; BMI 22.8
[2020-12-14 18:58] LABS: COVID19 -Nasal RAPID Negative (Negative)
--- NOTE | 2020-12-14 19:30 | PC.NURSE ---
Pt asking multiple staff members for pain meds prior to being seen by Provider. Reminded that he must be seen before he can be medicated.
--- NOTE | 2020-12-14 19:35 | DI.RAD.S_ITS ---
PROCEDURE: XR FOOT LT MIN 3V INDICATIONS: Roller ankle, swollen and bruised TECHNIQUE: 3 views of the foot were acquired. COMPARISON: None. FINDINGS: Bones: Minimally displaced fracture of the medial malleolus. No suspicious bony lesions. Soft tissues: No tibiotalar joint effusion. Achilles tendon appears normal. IMPRESSION: Medial malleolus fracture. Dictated by: Gris Hassan MD, PhD on 12/14/2020 at 19:58 Approved by: Gris Hassan MD, PhD on 12/14/2020 at 19:58
--- NOTE | 2020-12-14 19:37 | ED_ITS ---
HPI - Extremity Injury (Lower) General Chief Complaint: Extremity Injury, Lower Stated Complaint: Fell Thursday, Left Leg Injury Time Seen by Provider: 12/14/20 19:01 Source: patient Mode of arrival: Wheelchair Limitations: no limitations History of Present Illness HPI Narrative: 55-year-old male smoker with history of TIA and bipolar presents with a chief complaint of left ankle pain after a fall a few days ago. He states that he was walking and stepped awkwardly in inverted his left ankle. He denies any foot, knee or hip pain. His pain is worse with ambulation though he has been ambulating for few days. He states that it gets better with rest and elevation. He denies any numbness, tingling or weakness. He denies any prodromal symptoms such as dizziness, weakness or lightheadedness contributing to his fall. He denies chest pain or shortness of breath. Related Data Home Medications Medication Instructions Recorded Confirmed ibuprofen 200 mg tablet (Advil) 400 mg PO QID PRN 12/14/17 12/13/20 lisinopril 20 mg tablet 20 mg PO DAILY 07/15/18 12/13/20 aspirin 81 mg chewable tablet 81 mg PO DAILY 08/13/19 12/13/20 spironolactone 25 mg tablet 12.5 mg PO DAILY 08/13/19 12/13/20 atorvastatin 80 mg tablet 80 mg PO BEDTIME 01/23/20 12/13/20 docosahexaenoic acid 200 mg 200 mg PO DAILY 01/23/20 12/13/20 capsule (Algal Fombell-3 DHA) gabapentin 100 mg capsule 400 mg PO TID cap 01/23/20 12/13/20 metoprolol succinate 25 mg capsule 25 mg PO DAILY 01/23/20 12/13/20 sprinkle, ext. release 24 hr cyclobenzaprine 5 mg tablet 5 mg PO TID PRN 04/11/20 12/13/20 celecoxib 200 mg capsule (Celebrex) 200 mg PO DAILY 07/21/20 12/13/20 Previous Rx's Medication Instructions Recorded furosemide 20 mg tablet 20 mg PO DAILY #14 tab 09/30/19 hydrocodone 5 mg-acetaminophen 325 1 tab PO Q4-6H PRN #10 tab 04/16/20 mg tablet lidocaine 5 % topical patch 1 patch TOP DAILY #15 each 04/16/20 (Lidoderm) lithium carbonate 300 mg capsule 300 mg PO BEDTIME #30 cap 08/30/20 bupropion HCl 150 mg 24 hr tablet, 450 mg PO QAM #90 tab 10/25/20 extended release olanzapine 5 mg tablet 15 mg PO BEDTIME #90 tab 11/16/20 hydroxyzine HCl 25 mg tablet See Rx Instructions .ROUTE 12/11/20 .COMPLEX #180 tab diazepam 5 mg tablet 5 mg PO BID #60 tab 12/13/20 hydrocodone 5 mg-acetaminophen 325 1 tab PO Q4-6H PRN #20 tab 12/14/20 mg tablet Allergies Allergy/AdvReac Type Severity Reaction Status Date / Time No Known Drug Allergies Allergy Verified 12/13/20 14:34 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 Extraoccular muscles are intact bilaterally. There is no subconjunctival hemorrhage or exudate. CHEST: Lungs are clear to auscultation bilaterally and free of wheezes, rales, or rhonchi. Heart rate is regular rhythm, there are no murmurs, clicks, rubs, or gallops. There is no chest wall tenderness. ABD: Abdomen is soft and nontender. There is no guarding or rebound. Bowel sounds are normal in all 4 quadrants. There is no mass or organomegaly. EXT: Full but painful range of motion of the left ankle with moderate swelling and dark purple ecchymosis. This is closed, isolated and n neurovascularly intact SKIN: Warm, pink, and dry. No erythema or rash Initial Vital Signs Initial Vital Signs: Vital Signs Temperature 98.5 F 12/14/20 18:18 Pulse Rate 81 12/14/20 18:18 Respiratory Rate 16 12/14/20 18:18 Blood Pressure 127/69 12/14/20 18:18 Pulse Oximetry 100 12/14/20 18:18 Course Orders Ordered: ED Orders 12/14/20 19:35 XR foot LT min 3V Stat 12/14/20 19:40 XR ankle LT min 3V Stat Discontinued Medications Hydrocodone Bitart/Acetaminophen (Hydrocodone/Acet 5/325 Prepack) 1 bottle MISC SEEINSTR ONE Stop: 12/14/20 20:11 Last Admin: 12/14/20 20:18 Dose: 1 bottle Documented by: [email or web address] Consultations Consultation #1: Discussed with on-call orthopedist (Dr. Riddle). She has reviewed the images and recommends a walking boot and weight-bearing as tolera syed, crutches if needed and follow up as an outpatient Vital Signs Vital signs: Vital Signs - 8 hr 12/14/20 21:01 Pulse Rate 101 H Blood Pressure 124/85 Pulse Oximetry 100 MDM - Extremity Injury (Lower) Lab Data Labs: Lab Results 12/14/20 Range/Units 18:25 SARS-CoV-2 (PCR) Negative (Negative) Imaging Data Extremity x-ray #1: Radiologist's Impression: [address] [id number] ReportSigned Patient: Fidel Erwin EMR#: [id number]: 1965Acct:[id number]/Sex: 55 / MDate of Service: 12/14/20Loc: EDAccession Number: [id number] Procedure: XR ankle LT min 3V Ordering Provider: Spencer Wolf D.O. PROCEDURE: XR ANKLE LT MIN 3V INDICATIONS: pain, swelling TECHNIQUE: 3 views of the ankle were acquired. COMPARISON: [facility], CR, XR FOOT LT MIN 3V, 12/14/2020, 19:40. [facility], CR, XR ANKLE LT MIN 3V, 08/13/2019, 10:24. FINDINGS: Bones: Minimally displaced lateral malleolus fracture identified. Medial malleolus fracture identified in the x-ray of the foot is not well visualized. Accessory ossicle noted adjacent to the medial malleolus. Soft tissues: No tibiotalar joint effusion. Achilles tendon appears normal. Lateral and medial soft tissue swelling noted in ligamentous injury cannot be excluded. IMPRESSION: 1. Lateral malleolus fracture. 2. Medial malleolus fracture best visualized by foot x-ray series. Dictated by: Gris Hassan MD, PhD on 12/14/2020 at 20:10 Approved by: Gris Hassan MD, PhD on 12/14/2020 at 20:12 Discharge Plan Departure Patient Disposition: Home Clinical Impression: Ankle fracture, left Qualifiers: Encounter type: initial encounter Fracture type: closed Qualified Code(s): S82.892A - Other fracture of left lower leg, initial encounter for closed fracture Instructions: DI for Fracture Activity Restrictions/Additional Instructions: *You have been diagnosed with [left ankle fracture] *What to do: *Please continue to take your regular medications as directed. [x ] New medication prescriptions sent to your pharmacy: [ [facility]] [ ] New medication written as a paper prescription *Please follow up with [ Janessa] of [facility] in 2-3 days, call for an appointment. Let them know you were seen in the Emergency Department and that we ask that you be seen in follow up. We will electronically transmit a record of today's note if your PCP is in our system *Return to Emergency Department if you should have any new, worsening or concerning symptoms, such as [worsening pain, significant swelling, cold extremities, numbness, tingling, weakness or other bothersome symptoms Weight bearing as tolerated Splint Care: Keep splint clean and dry. Elevated affected body part to decrease swelling. OK to use ice pack on the affected body part. Use for 15-20 minutes each time, for 5-6x per day. If you develop worsening pain, numbness, tingling, discoloration of the affected body part, loosen the splint, and either see your doctor for an urgent re-assessment, or return to the Emergency Department. Return to the Emergency Department for any new or worsening symptoms. You have been prescribed narcotic medications. While on these medications you cannot drive or operate heavy machinery. Additionally you cannot sign legal documents or perform any duties such as this. Many people get constipated on narcotic medications so it would be advisable to discuss stool softeners with the pharmacist when you clam picker your prescription. Please understand that we cannot provide further refills of narcotics or controlled substances through the ED and your pain management will need to be through your Primary Care Provider Prescriptions: New hydrocodone-acetaminophen 5-325 mg tablet 1 tab PO Q4-6H PRN (Reason: pain) Qty: 20 RF: 0 No Action Algal Fombell-3 DHA 200 mg capsule 200 mg PO DAILY RF: 0 atorvastatin 80 mg tablet 80 mg PO BEDTIME RF: 0 metoprolol succinate 25 mg capsule,sprinkle,ER 24hr 25 mg PO DAILY RF: 0 cyclobenzaprine 5 mg tablet 5 mg PO TID PRN (Reason: Muscle Spasm) RF: 0 lithium carbonate 300 mg capsule 300 mg PO BEDTIME Qty: 30 RF: 0 diazepam 5 mg tablet 5 mg PO BID Qty: 60 RF: 0 bupropion HCl 150 mg tablet extended release 24 hr 450 mg PO QAM Qty: 90 RF: 3 olanzapine 5 mg tablet 15 mg PO BEDTIME Qty: 90 RF: 3 hydroxyzine HCl 25 mg tablet See Rx Instructions .ROUTE .COMPLEX Qty: 180 RF: 0 aspirin 81 mg Tablet,Chewable 81 mg PO DAILY RF: 0 spironolactone 25 mg tablet 12.5 mg PO DAILY RF: 0 gabapentin 100 mg capsule 400 mg PO TID RF: 0 furosemide 20 mg tablet 20 mg PO DAILY Qty: 14 RF: 0 hydrocodone-acetaminophen 5-325 mg tablet 1 tab PO Q4-6H PRN (Reason: pain) Qty: 10 RF: 0 lidocaine [Lidoderm] 5 % adhesive patch,medicated 1 patch TOP DAILY Qty: 15 RF: 0 ibuprofen [Advil] 200 mg Tablet 400 mg PO QID PRN (Reason: Pain (Scale Score 1-3)) RF: 0 celecoxib [Celebrex] 200 mg capsule 200 mg PO DAILY RF: 0 lisinopril 20 mg tablet 20 mg PO DAILY RF: 0 Referrals: Tano Mathis MD [Primary Care Provider] -
--- NOTE | 2020-12-14 19:40 | DI.RAD.S_ITS ---
PROCEDURE: XR ANKLE LT MIN 3V INDICATIONS: pain, swelling TECHNIQUE: 3 views of the ankle were acquired. COMPARISON: [facility], CR, XR FOOT LT MIN 3V, 12/14/2020, 19:40. [facility], CR, XR ANKLE LT MIN 3V, 08/13/2019, 10:24. FINDINGS: Bones: Minimally displaced lateral malleolus fracture identified. Medial malleolus fracture identified in the x-ray of the foot is not well visualized. Accessory ossicle noted adjacent to the medial malleolus. Soft tissues: No tibiotalar joint effusion. Achilles tendon appears normal. Lateral and medial soft tissue swelling noted in ligamentous injury cannot be excluded. IMPRESSION: 1. Lateral malleolus fracture. 2. Medial malleolus fracture best visualized by foot x-ray series. Dictated by: Gris Hassan MD, PhD on 12/14/2020 at 20:10 Approved by: Gris Hassan MD, PhD on 12/14/2020 at 20:12
--- NOTE | 2020-12-14 20:00 | PC.NURSE ---
Pt walking on foot, despite fracture, leaving AMA due to not being given treatment soon enough. Informed that he has a broken bone and should not be walking on it. Pt is frustrated and rude to staff.
[2020-12-14] MEDS: HYDROCODONE/ACET 5/325 PREPACK 1 BOTTLE MISC (20:18)
--- NOTE | 2020-12-14 20:52 | PC.NURSE ---
Pt now agreeing to receive care after pain meds administered. He asked for a double dose; told by this RN that one pill is ordered and he will get no more until it is time. Educated on the risks of overdosing narcotic meds. Walking boot applied.
[2020-12-14 21:01] VITALS: BP 124/85; PULSE 101; O2SAT 100
== END 2020-12-14 21:08 | disposition home or self-care (01) ==
PROVIDERS: Emergency Provider Emergency Medicine; PCP Family Medicine Sports Medicine
DX: S82.892A Other fracture of left lower leg, initial encounter for closed fracture (principal); W19.XXXA Unspecified fall, initial encounter; Z20.822 Contact with and (suspected) exposure to COVID-19
CPT/HCPCS: 73610; 73630; 87635; 99282; 99283; C9803

== ENCOUNTER → 2021-06-05 14:47 | Outpatient (CLI) | payer OTHER, SELFPAY ==
[2020-07-21 03:41] VITALS: BMI 26.3
[2021-06-05 16:29] LABS: UR Morphine/Opiate cutoff 300 Negative (Negative); Ur Creatinine Normal (Normal); Ur Specific Gravity Normal (Normal); Urine Amphetamines Negative (Negative); Urine Barbiturates Negative (Negative); Urine Benzodiazepines Positive (Negative); Urine Cocaine Negative (Negative); Urine MDMA Negative (Negative); Urine Methadone Negative (Negative); Urine Methamphetamines Negative (Negative); Urine Oxycodone Negative (Negative); Urine Phencyclidine Negative (Negative); Urine Tetrahydrocannabinol Positive (Negative); Urine Tricyclic Antidepressant Negative (Negative); Urine pH Normal (Normal)
== END ==
PROVIDERS: PCP Family Medicine Sports Medicine; Referring Provider Psychiatry & Neurology Psychiatry; Visit Provider Psychiatry & Neurology Psychiatry
DX: F19.10 Other psychoactive substance abuse, uncomplicated (principal); F31.81 Bipolar II disorder
CPT/HCPCS: 80305; 99214

== ENCOUNTER 2021-06-13 06:50 | Emergency (ER) | payer OTHER, SELFPAY ==
[2020-07-21 03:41] VITALS: BMI 26.3
[2021-06-13 06:56] VITALS: BP 136/62; PULSE 81; RESP 18; TEMP 36.6; O2SAT 97; BMI 29.9
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
[2021-06-13 08:00] VITALS: BP 131/63; PULSE 52; RESP 18; O2SAT 99
[2021-06-13] MEDS: KETOROLAC 30 MG/ML VIAL IM (08:20)
[2021-06-13 08:55] VITALS: BP 133/60; PULSE 55; RESP 18; O2SAT 99
== END 2021-06-13 09:15 | disposition home or self-care (01) ==
PROVIDERS: Emergency Provider Emergency Medicine
DX: S39.012A Strain of muscle, fascia and tendon of lower back, initial encounter (principal); M54.16 Radiculopathy, lumbar region; F17.210 Nicotine dependence, cigarettes, uncomplicated; W22.8XXA Striking against or struck by other objects, initial encounter; Y92.009 Unspecified place in unspecified non-institutional (private) residence as the place of occurrence of the external cause
CPT/HCPCS: 72100; 99283; J1885

== ENCOUNTER 2021-06-18 06:27 | Inpatient (IN) | payer OTHER, SELFPAY ==
[2020-07-21 03:41] VITALS: BMI 26.3
[2021-06-18] VITALS (20 sets, daily range): BP systolic 123–187; BP diastolic 65–99; PULSE 54–96; RESP 14–32; TEMP 36.2–37.2; O2SAT 92–100; BMI 21.2
--- NOTE | 2021-06-18 | DI.ECHO.S_ITS ---
[facility] +---------+ : : [address] : [place] : : : : [id number] : : : : Phone: [phone]---------+ Echocardiogram Report + + :Name: ALAN RAJPUT Study Date: 06/19/2021 Height: 70 in : :[facility] ReadingLocation: Weight: 148 lb : : Gender: Male BSA: 1.8 m2 : :: 1965 Age: 56 yrs BP: 185/92 mmHg: :Reason For Study: CVA : :Ordering Physician: ISAIAS, : :ASIYA Performed By: Sri Gant : :Referring: ASIYA ESPARZA : + + Interpretation Summary 1) Mildly enlarged left ventricle with severely reduced systolic function (EF 25-30%). 2) The inferior wall and inferolateral wall are akinetic (and scarred). Rest of the LV is moderately hypokinetic. 3) Normal right ventricular size with mildly reduced function. 4) Annuloplasty ring is noted in mitral position. MIld regurgitation present. 5) Compared to the Echo done 06/24/2020, LVEF is slightly lower on this study. Procedure: A two-dimensional transthoracic echocardiogram with color flow and Doppler was performed. The study quality was technically adequate. Comparison is made with the echocardiogram of 06/24/2020. A saline contrast injection was performed to assess for cardiac shunting. A contrast injection of Definity was performed to improve assessment of LV function. The patient was in sinus bradycardia with heart rates between 46-57 bpm during the exam. Left Ventricle: There is normal left ventricular wall thickness. The left ventricle is mildly dilated. The ejection fraction is estimated to be 25-30%. The inferior wall and inferolateral wall are akinetic. Rest of the LV is moderately hypokinetic. Right Ventricle: The right ventricle is normal size. Right ventricular systolic function is mildly reduced. Atria: The left atrium is moderately dilated. Right atrial size is normal. There is no Doppler evidence for an interatrial shunt. Mitral Valve: There is moderate mitral annular calcification. An annuloplasty ring is noted in the mitral position. There is mild mitral regurgitation. Aortic Valve: The aortic valve is mildly calcified. The aortic valve opens well. There is no aortic valve stenosis. No aortic regurgitation is present. Tricuspid Valve: The tricuspid valve is normal in structure and function. There is mild tricuspid regurgitation. The right ventricular systolic pressure is estimated to be at least 20 mmHg based on an estimated right atrial pressure of 3 mm Hg. Pulmonic Valve: The pulmonic valve leaflets are thin and pliable; valve motion is normal. There is no pulmonic valvular regurgitation. Great Vessels: The aortic root is normal size. The dimensions of the ascending aorta are normal. The IVC is of normal diameter and collapses greater than 50% with a sniff. This suggests a low right atrial pressure of 3 mm Hg. Pericardium/ Pleura There is no pericardial effusion. There is no pleural effusion. MMode/2D Measurements & Calculations LVIDd: 5.9 cm LVOT diam: 2.0 cm LVIDs: 5.4 cm Ao root diam: 2.8 cm FS: 8.3 % asc Aorta Diam: 3.3 cm EPSS: 1.9 cm Ao Arch Diam (Prox Trans): 3.2 cm IVSd: 0.65 cm LVPWd: 0.66 cm LV bernal. diameter/BSA (cm/m^2): 3.2 LV sys. diameter/BSA (cm/m^2): 2.9 LA A2 area: 27.0 cm2 RA long axis: 4.3 cm LA A4 area: 15.9 cm2 RA area: 12.3 cm2 LA length (vol): 4.7 cm RA vol: 30.0 ml LA vol: 76.8 ml RA : 16.3 ml/m2 LA vol index: 41.8 ml/m2 IVC diam: 0.94 cm RVD1 (basal): 3.1 cm TAPSE: 1.5 cm Doppler Measurements & Calculations Ao V2 max: 141.7 cm/sec LVOT Max Case: 90.6 cm/sec Ao V2 mean: 89.0 cm/sec LV V1 max P.3 mmHg Ao max P.0 mmHg LV V1 VTI: 20.3 cm Ao mean P.8 mmHg LARA(I,D): 2.2 cm2 Ao V2 VTI: 28.1 cm LARA(V,D): 1.9 cm2 sev ratio: 0.72 LARA indexed to BSA (cm^2/m^2): 1.2 MV E max case: 106.8 cm/sec TR max case: 204.6 cm/sec MV A max case: 84.2 cm/sec TR max P.7 mmHg MV E/A: 1.3 PA V2 max: 111.0 cm/sec Med Peak E' Case: 3.8 cm/sec PA V2 mean: 66.5 cm/sec E/E' med: 27.9 PA mean P.1 mmHg Lat Peak E' Case: 7.7 cm/sec PA pr(Accel): 39.6 mmHg E/E' lat: 13.8 E/e' average: 20.8 MV dec time: 0.27 sec SV(LVOT): 60.9 ml Reading Physician:02:43 PM
--- NOTE | 2021-06-18 06:38 | DI.CT.S_ITS ---
PROCEDURE: CT STROKE INDICATIONS: altered with neglect TECHNIQUE: Noncontrast 4.5 mm thick angled axial sections acquired from the foramen magnum to the vertex, with coronal reformats. For radiation dose reduction, the following was used: automated exposure control, adjustment of mA and/or kV according to patient size. COMPARISON: [facility], CT, CT HEAD/BRAIN WO CON, 07/21/2020, 21:02. [facility], MR, MR STROKE, 07/21/2020, 9:05. [facility], CT, CT HEAD/BRAIN WO CON, 07/20/2020, 19:36. FINDINGS: Image quality: Excellent. CSF spaces: Basal cisterns are patent. No extra-axial fluid collections. The ventricles are symmetric in size and shape. Brain: Right frontal encephalomalacia is stable compared to prior exams. No intracranial bleeds or masses. There is cerebral volume loss for age, with resultant ventricular and sulcal prominence. There are periventricular and deep white matter chronic small vessel ischemic changes. There is intracranial internal carotid artery and vertebral artery atherosclerosis. Skull and face: Calvarium and visualized facial bones appear intact, without suspicious lesions. Sinuses: Visualized sinuses and mastoids are clear. IMPRESSION: No acute intracranial disease process. This study fulfills neurological imaging criteria for inclusion or exclusion of acute stroke therapies based on available published neurological guidelines. Dictated by: Gris Hassan MD, PhD on 06/18/2021 at 7:28 Approved by: Gris Hassan MD, PhD on 06/18/2021 at 7:31
--- NOTE | 2021-06-18 06:41 | ED_ITS ---
HPI - Neuro Symptoms/Deficit <Spencer Wolf DO - Last Filed: 06/26/21 03:17> General Chief Complaint: Altered Mental Status Stated Complaint: Decreased LOC Time Seen by Provider: 06/18/21 06:37 History of Present Illness HPI Narrative: 56-year-old male daily smoker with history of bipolar, TIA, polysubstance abuse, hypertension, osteomyelitis of the lumbar spine presents by EMS with a chief complaint of generalized body pain. His address has an alert that notifies police when 911 is activated and they arrived with EMS. His mother woke up to go to the bathroom and heard a sound in the living room and found him sitting on the floor tapping on a bookshelf in an odd manner. He wasn't answering her, non- verbal and acting abnormally. His last normal was yesterday afternoon. Related Data Home Medications Medication Instructions Recorded Confirmed lisinopril 20 mg tablet 20 mg PO DAILY 07/15/18 06/19/21 atorvastatin 80 mg tablet 80 mg PO BEDTIME 01/23/20 06/18/21 metoprolol succinate 25 mg capsule 25 mg PO DAILY 01/23/20 06/19/21 sprinkle, ext. release 24 hr gabapentin 100 mg capsule 400 mg PO TID 06/18/21 06/18/21 hydroxyzine HCl 25 mg tablet 25 mg PO TID 06/18/21 06/18/21 Previous Rx's Medication Instructions Recorded bupropion HCl 150 mg 24 hr tablet, 450 mg PO QAM #90 tab 05/31/21 extended release olanzapine 5 mg tablet 15 mg PO BEDTIME #90 tab 05/31/21 diazepam 5 mg tablet 5 mg PO BID #60 tab 06/03/21 cyclobenzaprine 5 mg tablet 5 mg PO TID PRN #20 tab 06/12/21 baclofen 20 mg tablet 20 mg PO TID #20 tab 06/13/21 aspirin 81 mg tablet,delayed 81 mg PO DAILY #30 tab 06/20/21 release Allergies Allergy/AdvReac Type Severity Reaction Status Date / Time No Known Drug Allergies Allergy Verified 06/12/21 14:24 <Viktoriya Trivedi DO - Last Filed: 06/18/21 18:51> Review of Systems ROS Unobtainable: Unobtainable due to medical condition Patient History <Spencer Wolf DO - Last Filed: 06/26/21 03:17> Medical History Anxiety Bipolar II disorder, mild, depressed, with anxious distress Coronary artery disease Discitis HTN (hypertension) 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) Surgical History H/O valvuloplasty S/P CABG x 4 Family History Grandfather Heart attack Family/Other Heart attack Social History household members: family Smoking Status: Current every day smoker alcohol intake: former Smoking Status: Current every day smoker tobacco type: cigarettes alcohol intake frequency: other Substance Use Type: does not use Exam <Spencer Wolf DO - Last Filed: 06/26/21 03:17> Initial Vital Signs Initial Vital Signs: Vital Signs Temperature 97.8 F 06/18/21 06:30 Pulse Rate 71 06/18/21 06:30 Respiratory Rate 16 06/18/21 06:30 Blood Pressure 171/79 H 06/18/21 06:30 Pulse Oximetry 94 06/18/21 06:30 <Viktoriya Trivedi, DO - Last Filed: 06/18/21 18:51> Initial Vital Signs Initial Vital Signs: Vital Signs Temperature 97.8 F 06/18/21 06:30 Pulse Rate 71 06/18/21 06:30 Respiratory Rate 16 06/18/21 06:30 Blood Pressure 171/79 H 06/18/21 06:30 Pulse Oximetry 94 06/18/21 06:30 GENERAL: Week 56-year-old male appears older than stated age HEENT: Head atraumatic,EOMI, pupils reactive, face symmetric, dry mucous membranes CARDIOVASCULAR: Regular rate and rhythm without murmurs, rubs or gallops. RESPIRATORY: Breath sounds equal bilaterally, no wheezes rales or rhonchi. ABDOMEN: Soft, nontender. Normoactive bowel sounds all 4 quadrants. No guarding or rebound. EXTREMITIES: Normal range of motion, no clubbing or edema. Neurovascularly intact NEUROLOGICAL: Gaze to the right minimal left facial droop definitely weaker on the left side but really not moving any of his extremities. All extremities all to the gurney with some resistance on the right. 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 Unable to perform full NIH stroke scale is he does not participate. Only able to identify a chair but the word is very clear. He does not answer any other questions. SKIN: Warm, dry, no laceration, no petechiae, no rashes or lesions. Course <Spencer Washingtonan, DO - Last Filed: 06/26/21 03:17> Orders Ordered: Discontinued Medications Acetaminophen (Acetaminophen 325 Mg Tablet) 650 mg PO Q6HR PRN PRN Reason: Fever Acetaminophen (Acetaminophen 325 Mg Tablet) 650 mg PO Q6HR [facility] [place] Last Admin: 06/20/21 11:07 Dose: 650 mg Documented by: JOSE E Admin: 06/20/21 03:19 Dose: 650 mg Documented by: Admin: 06/19/21 23:40 Dose: Not Given Documented by: Admin: 06/19/21 18:04 Dose: 650 mg Documented by: JOSE E Admin: 06/19/21 14:10 Dose: 650 mg Documented by: JOSE E Admin: 06/19/21 06:11 Dose: 650 mg Documented by: Admin: 06/19/21 00:26 Dose: Not Given Documented by: Admin: 06/18/21 18:06 Dose: 650 mg Documented by: XAVI Aspirin (Aspirin 81 Mg Chew Tab) 324 mg PO NOW ONE Stop: 06/18/21 09:06 Last Admin: 06/18/21 09:49 Dose: Not Given Documented by: BRENDA Aspirin (Aspirin 300 Mg Supp) 300 mg MI NOW ONE Stop: 06/18/21 09:51 Last Admin: 06/18/21 10:00 Dose: 300 mg Documented by: BRENDA Aspirin (Aspirin Ec 81 Mg Tablet) 81 mg PO DAILY [facility] [place] Last Admin: 06/20/21 09:03 Dose: 81 mg Documented by: JOSE E Admin: 06/19/21 08:16 Dose: 81 mg Documented by: JOSE E Atorvastatin Calcium (Atorvastatin 20 Mg Tablet) 80 mg PO BEDTIME [facility] [place] Last Admin: 06/19/21 20:10 Dose: 80 mg Documented by: Admin: 06/18/21 21:02 Dose: 80 mg Documented by: ISABEL Atorvastatin Calcium (Atorvastatin 20 Mg Tablet) 80 mg PO BEDTIME [facility] [place] Baclofen (Baclofen 10 Mg Tablet) 20 mg PO TID [facility] [place] Last Admin: 06/20/21 13:20 Dose: 20 mg Documented by: JOSE E Admin: 06/20/21 09:03 Dose: 20 mg Documented by: JOSE E Admin: 06/19/21 20:10 Dose: 20 mg Documented by: Admin: 06/19/21 14:11 Dose: 20 mg Documented by: JOSE E Admin: 06/19/21 08:15 Dose: 20 mg Documented by: JOSE E Admin: 06/18/21 21:02 Dose: 20 mg Documented by: ISABEL Bupropion HCl (Bupropion Xl 150 Mg Tab) 150 mg PO DAILY [facility] [place] Last Admin: 06/20/21 09:03 Dose: 150 mg Documented by: JOSE E Admin: 06/19/21 08:16 Dose: 150 mg Documented by: JOSE E Cyclobenzaprine HCl (Cyclobenzaprine 10 Mg Tablet) 5 mg PO Q8HR PRN PRN Reason: Spasms Diazepam (Diazepam 5 Mg Tablet) 5 mg PO BID [facility] [place] Last Admin: 06/20/21 09:03 Dose: 5 mg Documented by: JOSE E Admin: 06/19/21 20:09 Dose: 5 mg Documented by: Admin: 06/19/21 08:16 Dose: 5 mg Documented by: JOSE E Admin: 06/18/21 21:02 Dose: 5 mg Documented by: ISABEL Diphenhydramine HCl (Diphenhydramine 50 Mg/Ml Vial) 50 mg IV NOW ONE Stop: 06/18/21 11:08 Last Admin: 06/18/21 11:25 Dose: 50 mg Documented by: ALBERT Enoxaparin Sodium (Enoxaparin 40 Mg/0.4 Ml Syringe) 40 mg SUBCUT DAILY [facility] [place] Last Admin: 06/20/21 09:07 Dose: 40 mg Documented by: JOSE E Admin: 06/19/21 08:16 Dose: 40 mg Documented by: JOSE E Gabapentin (Gabapentin 400 Mg Capsule) 400 mg PO TID [facility] [place] Last Admin: 06/20/21 13:20 Dose: 400 mg Documented by: JOSE E Admin: 06/20/21 09:08 Dose: 400 mg Documented by: JOSE E Admin: 06/19/21 20:10 Dose: 400 mg Documented by: Admin: 06/19/21 14:12 Dose: 400 mg Documented by: JOSE E Admin: 06/19/21 08:15 Dose: 400 mg Documented by: JOSE E Admin: 06/18/21 21:02 Dose: 400 mg Documented by: ISABEL Gabapentin (Gabapentin 100 Mg Capsule) 400 mg PO TID [facility] [place] Haloperidol (Haloperidol 5 Mg/Ml Vial) 2 mg IV NOW ONE Stop: 06/18/21 10:15 Last Admin: 06/18/21 10:27 Dose: 2 mg Documented by: BRENDA Hydroxyzine Pamoate (Hydroxyzine Pamoate 25 Mg Capsule) 25 mg PO Q6HR PRN PRN Reason: Nausea Last Admin: 06/18/21 19:52 Dose: 25 mg Documented by: ISABEL Sodium Chloride (Normal Saline 0.9%) 1,000 mls @ 150 mls/hr IV CONT [facility] [place] Last Infusion: 06/18/21 11:36 Dose: 0 mls/hr Documented by: Admin: 06/18/21 08:02 Dose: 150 mls/hr Documented by: DEXTER Sodium Chloride (Normal Saline 0.45%) 1,000 mls @ 100 mls/hr IV CONT [facility] [place] Last Admin: 06/19/21 04:05 Dose: 100 mls/hr Documented by: Infusion: 06/19/21 04:05 Dose: 100 mls/hr Documented by: Admin: 06/18/21 18:05 Dose: 100 mls/hr Documented by: XAVI Ketorolac Tromethamine (Ketorolac 30 Mg/Ml Vial) 15 mg IV Q6H [facility] [place] Stop: 06/25/21 11:18 Last Admin: 06/20/21 11:53 Dose: 15 mg Documented by: JOSE E Lisinopril (Lisinopril 20 Mg Tablet) 20 mg PO DAILY [facility] [place] Last Admin: 06/20/21 09:01 Dose: 20 mg Documented by: JOSE E Admin: 06/19/21 08:15 Dose: 20 mg Documented by: JOSE E Lorazepam (Lorazepam 2 Mg/Ml Inj) 1 mg IV NOW ONE Stop: 06/18/21 07:54 Last Admin: 06/18/21 07:57 Dose: 1 mg Documented by: DEXTER Lorazepam (Lorazepam 2 Mg/Ml Inj) 1 mg IV NOW ONE Stop: 06/18/21 10:48 Last Admin: 06/18/21 10:49 Dose: 1 mg Documented by: BRENDA Metoprolol Succinate (Metoprolol Er 25 Mg Tablet) 25 mg PO DAILY [facility] [place] Last Admin: 06/20/21 09:08 Dose: Not Given Documented by: JOSE E Admin: 06/19/21 08:16 Dose: 25 mg Documented by: JOSE E Naloxone HCl (Naloxone 0.4 Mg/Ml Vial) 0.2 mg IV Q2MIN PRN PRN Reason: Opiate Reversal Olanzapine (Olanzapine Odt 10 Mg Tab) 15 mg PO BEDTIME [facility] [place] Last Admin: 06/19/21 20:09 Dose: 15 mg Documented by: Admin: 06/18/21 21:02 Dose: 15 mg Documented by: ISABEL Ondansetron HCl (Ondansetron 4 Mg/2 Ml Inj) 4 mg IV Q8HR PRN PRN Reason: Nausea And Vomiting Sodium Chloride (Sodium Chloride 0.9% Flush) 10 ml IV BID [facility] [place] Last Admin: 06/20/21 09:03 Dose: 10 ml Documented by: JOSE E Sodium Chloride (Sodium Chloride 0.9% Flush) 10 ml IV PRN PRN PRN Reason: Flush Last Admin: 06/20/21 03:22 Dose: 10 ml Documented by: MARIE Vital Signs Vital signs: Vital Signs - 8 hr 06/18/21 06:30 06/18/21 07:00 06/18/21 07:30 Temperature 97.8 F Pulse Rate 71 60 54 L Respiratory Rate 16 18 14 Blood Pressure 171/79 H 166/77 H 142/65 H Pulse Oximetry 94 100 100 06/18/21 08:35 06/18/21 08:36 06/18/21 09:00 Temperature Pulse Rate 57 L 96 H Respiratory Rate 32 H Blood Pressure 160/74 H Pulse Oximetry 100 06/18/21 09:39 06/18/21 09:40 Temperature Pulse Rate 84 84 Respiratory Rate Blood Pressure 123/99 H Pulse Oximetry 93 92 <Viktoriya Trivedi, - Last Filed: 06/18/21 18:51> Orders Ordered: Discontinued Medications Acetaminophen (Acetaminophen 325 Mg Tablet) 650 mg PO Q6HR PRN PRN Reason: Fever Acetaminophen (Acetaminophen 325 Mg Tablet) 650 mg PO Q6HR [facility] [place] Last Admin: 06/20/21 11:07 Dose: 650 mg Documented by: JOSE E Admin: 06/20/21 03:19 Dose: 650 mg Documented by: Admin: 06/19/21 23:40 Dose: Not Given Documented by: Admin: 06/19/21 18:04 Dose: 650 mg Documented by: JOSE E Admin: 06/19/21 14:10 Dose: 650 mg Documented by: JOSE E Admin: 06/19/21 06:11 Dose: 650 mg Documented by: Admin: 06/19/21 00:26 Dose: Not Given Documented by: Admin: 06/18/21 18:06 Dose: 650 mg Documented by: XAVI Aspirin (Aspirin 81 Mg Chew Tab) 324 mg PO NOW ONE Stop: 06/18/21 09:06 Last Admin: 06/18/21 09:49 Dose: Not Given Documented by: BRENDA Aspirin (Aspirin 300 Mg Supp) 300 mg MI NOW ONE Stop: 06/18/21 09:51 Last Admin: 06/18/21 10:00 Dose: 300 mg Documented by: BRENDA Aspirin (Aspirin Ec 81 Mg Tablet) 81 mg PO DAILY [facility] [place] Last Admin: 06/20/21 09:03 Dose: 81 mg Documented by: JOSE E Admin: 06/19/21 08:16 Dose: 81 mg Documented by: JOSE E Atorvastatin Calcium (Atorvastatin 20 Mg Tablet) 80 mg PO BEDTIME [facility] [place] Last Admin: 06/19/21 20:10 Dose: 80 mg Documented by: Admin: 06/18/21 21:02 Dose: 80 mg Documented by: ISABEL Atorvastatin Calcium (Atorvastatin 20 Mg Tablet) 80 mg PO BEDTIME [facility] [place] Baclofen (Baclofen 10 Mg Tablet) 20 mg PO TID [facility] [place] Last Admin: 06/20/21 13:20 Dose: 20 mg Documented by: JOSE E Admin: 06/20/21 09:03 Dose: 20 mg Documented by: JOSE E Admin: 06/19/21 20:10 Dose: 20 mg Documented by: Admin: 06/19/21 14:11 Dose: 20 mg Documented by: JOSE E Admin: 06/19/21 08:15 Dose: 20 mg Documented by: JOSE E Admin: 06/18/21 21:02 Dose: 20 mg Documented by: ISABEL Bupropion HCl (Bupropion Xl 150 Mg Tab) 150 mg PO DAILY [facility] [place] Last Admin: 06/20/21 09:03 Dose: 150 mg Documented by: JOSE E Admin: 06/19/21 08:16 Dose: 150 mg Documented by: JOSE E Cyclobenzaprine HCl (Cyclobenzaprine 10 Mg Tablet) 5 mg PO Q8HR PRN PRN Reason: Spasms Diazepam (Diazepam 5 Mg Tablet) 5 mg PO BID [facility] [place] Last Admin: 06/20/21 09:03 Dose: 5 mg Documented by: JOSE E Admin: 06/19/21 20:09 Dose: 5 mg Documented by: Admin: 06/19/21 08:16 Dose: 5 mg Documented by: JOSE E Admin: 06/18/21 21:02 Dose: 5 mg Documented by: ISABEL Diphenhydramine HCl (Diphenhydramine 50 Mg/Ml Vial) 50 mg IV NOW ONE Stop: 06/18/21 11:08 Last Admin: 06/18/21 11:25 Dose: 50 mg Documented by: ALBERT Enoxaparin Sodium (Enoxaparin 40 Mg/0.4 Ml Syringe) 40 mg SUBCUT DAILY [facility] [place] Last Admin: 06/20/21 09:07 Dose: 40 mg Documented by: JOSE E Admin: 06/19/21 08:16 Dose: 40 mg Documented by: JOSE E Gabapentin (Gabapentin 400 Mg Capsule) 400 mg PO TID [facility] [place] Last Admin: 06/20/21 13:20 Dose: 400 mg Documented by: JOSE E Admin: 06/20/21 09:08 Dose: 400 mg Documented by: JOSE E Admin: 06/19/21 20:10 Dose: 400 mg Documented by: Admin: 06/19/21 14:12 Dose: 400 mg Documented by: JOSE E Admin: 06/19/21 08:15 Dose: 400 mg Documented by: JOSE E Admin: 06/18/21 21:02 Dose: 400 mg Documented by: ISABEL Gabapentin (Gabapentin 100 Mg Capsule) 400 mg PO TID [facility] [place] Haloperidol (Haloperidol 5 Mg/Ml Vial) 2 mg IV NOW ONE Stop: 06/18/21 10:15 Last Admin: 06/18/21 10:27 Dose: 2 mg Documented by: BRENDA Hydroxyzine Pamoate (Hydroxyzine Pamoate 25 Mg Capsule) 25 mg PO Q6HR PRN PRN Reason: Nausea Last Admin: 06/18/21 19:52 Dose: 25 mg Documented by: ISABEL Sodium Chloride (Normal Saline 0.9%) 1,000 mls @ 150 mls/hr IV CONT [facility] [place] Last Infusion: 06/18/21 11:36 Dose: 0 mls/hr Documented by: Admin: 06/18/21 08:02 Dose: 150 mls/hr Documented by: DEXTER Sodium Chloride (Normal Saline 0.45%) 1,000 mls @ 100 mls/hr IV CONT [facility] [place] Last Admin: 06/19/21 04:05 Dose: 100 mls/hr Documented by: Infusion: 06/19/21 04:05 Dose: 100 mls/hr Documented by: Admin: 06/18/21 18:05 Dose: 100 mls/hr Documented by: XAVI Ketorolac Tromethamine (Ketorolac 30 Mg/Ml Vial) 15 mg IV Q6H [facility] [place] Stop: 06/25/21 11:18 Last Admin: 06/20/21 11:53 Dose: 15 mg Documented by: JOSE E Lisinopril (Lisinopril 20 Mg Tablet) 20 mg PO DAILY [facility] [place] Last Admin: 06/20/21 09:01 Dose: 20 mg Documented by: JOSE E Admin: 06/19/21 08:15 Dose: 20 mg Documented by: JOSE E Lorazepam (Lorazepam 2 Mg/Ml Inj) 1 mg IV NOW ONE Stop: 06/18/21 07:54 Last Admin: 06/18/21 07:57 Dose: 1 mg Documented by: DEXTER Lorazepam (Lorazepam 2 Mg/Ml Inj) 1 mg IV NOW ONE Stop: 06/18/21 10:48 Last Admin: 06/18/21 10:49 Dose: 1 mg Documented by: BRENDA Metoprolol Succinate (Metoprolol Er 25 Mg Tablet) 25 mg PO DAILY [facility] [place] Last Admin: 06/20/21 09:08 Dose: Not Given Documented by: JOSE E Admin: 06/19/21 08:16 Dose: 25 mg Documented by: JOSE E Naloxone HCl (Naloxone 0.4 Mg/Ml Vial) 0.2 mg IV Q2MIN PRN PRN Reason: Opiate Reversal Olanzapine (Olanzapine Odt 10 Mg Tab) 15 mg PO BEDTIME [facility] [place] Last Admin: 06/19/21 20:09 Dose: 15 mg Documented by: Admin: 06/18/21 21:02 Dose: 15 mg Documented by: ISABEL Ondansetron HCl (Ondansetron 4 Mg/2 Ml Inj) 4 mg IV Q8HR PRN PRN Reason: Nausea And Vomiting Sodium Chloride (Sodium Chloride 0.9% Flush) 10 ml IV BID [facility] [place] Last Admin: 06/20/21 09:03 Dose: 10 ml Documented by: JOSE E Sodium Chloride (Sodium Chloride 0.9% Flush) 10 ml IV PRN PRN PRN Reason: Flush Last Admin: 06/20/21 03:22 Dose: 10 ml Documented by: MARIE Vital Signs Vital signs: Vital Signs - 8 hr 06/18/21 06:30 06/18/21 07:00 06/18/21 07:30 Temperature 97.8 F Pulse Rate 71 60 54 L Respiratory Rate 16 18 14 Blood Pressure 171/79 H 166/77 H 142/65 H Pulse Oximetry 94 100 100 06/18/21 08:35 06/18/21 08:36 06/18/21 09:00 Temperature Pulse Rate 57 L 96 H Respiratory Rate 32 H Blood Pressure 160/74 H Pulse Oximetry 100 06/18/21 09:39 06/18/21 09:40 Temperature Pulse Rate 84 84 Respiratory Rate Blood Pressure 123/99 H Pulse Oximetry 93 92 MDM - Neuro Symptoms/Deficit <Spencer Wolf DO - Last Filed: 06/26/21 03:17> Lab Data Result diagrams: 06/18/21 06:30 06/18/21 17:58 Labs: Lab Results 06/18/21 06/18/21 06/18/21 Range/Units 06:30 06:30 06:30 WBC 7.6 (4.5-11.0) X10^3/uL RBC 4.70 (4.5-5.9) X10^6/uL Hgb 14.0 (13.5-17.5) g/dL Hct 40.8 L (41-53) % MCV 86.8 (80-100) fL MCH 29.7 (26-34) PG MCHC 34.3 (30-36) % RDW 13.2 (11.6-14.8) % Plt Count 190 (150-400) X10^3/uL Neut % (Auto) 81.6 H (50-75) % Lymph % (Auto) 13.3 L (25-40) % [place] % (Auto) 3.0 (3-14) % Eos % (Auto) 1.7 L (2-4) % Baso % (Auto) 0.4 (0-2) % Neut # (Auto) 6200 (1422-2687) /uL Lymph # (Auto) 1000 L (3694-8115) /uL [place] # (Auto) 200 (0-900) /uL Eos # (Auto) 100 (0-450) /uL Baso # (Auto) 0 (0-100) /uL PT 12.4 (10.1-12.7) SECONDS INR 1.1 (0.9-1.3) Sodium 147 H (137-145) mmol/L Potassium 4.1 (3.4-5.1) mmol/L Chloride 111 H (98-107) mmol/L Carbon Dioxide 27 (22-32) mmol/L BUN 16 (9-20) mg/dL Creatinine 0.92 (0.66-1.25) mg/dL Estimated GFR > 60.0 (>60) mL/min BUN/Creatinine Ratio 17.4 (6-22) Glucose 124 H (70-100) mg/dL Lactate (0.7-2.1) mmol/L Calcium 10.0 (8.4-10.2) mg/dL Total Bilirubin 0.6 (0.2-1.3) mg/dL AST 19 (17-59) IU/L ALT 18 (<50) IU/L Alkaline Phosphatase 57 (38-126) U/L Total Creatine Kinase 58 (55-170) U/L CK-MB (CK-2) TNP CK-MB (CK-2) Rel Index TNP Troponin I < 0.012 (0.01-0.034) ng/mL Total Protein 8.8 H (6.3-8.2) g/dL Albumin 5.4 H (3.5-5.0) g/dL Globulin 3.4 (1.7-4.1) g/dL Albumin/Globulin Ratio 1.6 (1.0-2.8) Procalcitonin (<0.5) ng/mL Prolactin (3.7-17.9) ng/mL Salicylates (<20) mg/dL U Opiates 300ng/mL cut (Negative) Ur Oxycodone Screen (Negative) Urine Methadone Screen (Negative) Acetaminophen (10-30) ug/mL Ur Barbiturates Screen (Negative) U Tricyclic Antidepress (Negative) Ur Phencyclidine Scrn (Negative) Ur Amphetamines Screen (Negative) U Methamphetamines Scrn (Negative) Ur MDMA Scrn (Ecstasy) (Negative) U Benzodiazepines Scrn (Negative) Urine Cocaine Screen (Negative) U Marijuana (THC) Screen (Negative) Ethyl Alcohol < 10 ( - 10) mg/dL 06/18/21 06/18/21 06/18/21 Range/Units 06:30 06:30 06:30 WBC (4.5-11.0) X10^3/uL RBC (4.5-5.9) X10^6/uL Hgb (13.5-17.5) g/dL Hct (41-53) % MCV (80-100) fL MCH (26-34) PG MCHC (30-36) % RDW (11.6-14.8) % Plt Count (150-400) X10^3/uL Neut % (Auto) (50-75) % Lymph % (Auto) (25-40) % [place] % (Auto) (3-14) % Eos % (Auto) (2-4) % Baso % (Auto) (0-2) % Neut # (Auto) (7988-6340) /uL Lymph # (Auto) (0487-8438) /uL [place] # (Auto) (0-900) /uL Eos # (Auto) (0-450) /uL Baso # (Auto) (0-100) /uL PT (10.1-12.7) SECONDS INR (0.9-1.3) Sodium (137-145) mmol/L Potassium (3.4-5.1) mmol/L Chloride (98-107) mmol/L Carbon Dioxide (22-32) mmol/L BUN (9-20) mg/dL Creatinine (0.66-1.25) mg/dL Estimated GFR (>60) mL/min BUN/Creatinine Ratio (6-22) Glucose (70-100) mg/dL Lactate 1.1 (0.7-2.1) mmol/L Calcium (8.4-10.2) mg/dL Total Bilirubin (0.2-1.3) mg/dL AST (17-59) IU/L ALT (<50) IU/L Alkaline Phosphatase (38-126) U/L Total Creatine Kinase (55-170) U/L CK-MB (CK-2) CK-MB (CK-2) Rel Index Troponin I (0.01-0.034) ng/mL Total Protein (6.3-8.2) g/dL Albumin (3.5-5.0) g/dL Globulin (1.7-4.1) g/dL Albumin/Globulin Ratio (1.0-2.8) Procalcitonin 0.04 (<0.5) ng/mL Prolactin 10.6 (3.7-17.9) ng/mL Salicylates < 1.0 (<20) mg/dL U Opiates 300ng/mL cut (Negative) Ur Oxycodone Screen (Negative) Urine Methadone Screen (Negative) Acetaminophen < 10 L (10-30) ug/mL Ur Barbiturates Screen (Negative) U Tricyclic Antidepress (Negative) Ur Phencyclidine Scrn (Negative) Ur Amphetamines Screen (Negative) U Methamphetamines Scrn (Negative) Ur MDMA Scrn (Ecstasy) (Negative) U Benzodiazepines Scrn (Negative) Urine Cocaine Screen (Negative) U Marijuana (THC) Screen (Negative) Ethyl Alcohol ( - 10) mg/dL 06/18/21 Range/Units 07:17 WBC (4.5-11.0) X10^3/uL RBC (4.5-5.9) X10^6/uL Hgb (13.5-17.5) g/dL Hct (41-53) % MCV (80-100) fL MCH (26-34) PG MCHC (30-36) % RDW (11.6-14.8) % Plt Count (150-400) X10^3/uL Neut % (Auto) (50-75) % Lymph % (Auto) (25-40) % [place] % (Auto) (3-14) % Eos % (Auto) (2-4) % Baso % (Auto) (0-2) % Neut # (Auto) (0529-6074) /uL Lymph # (Auto) (7347-7871) /uL [place] # (Auto) (0-900) /uL Eos # (Auto) (0-450) /uL Baso # (Auto) (0-100) /uL PT (10.1-12.7) SECONDS INR (0.9-1.3) Sodium (137-145) mmol/L Potassium (3.4-5.1) mmol/L Chloride (98-107) mmol/L Carbon Dioxide (22-32) mmol/L BUN (9-20) mg/dL Creatinine (0.66-1.25) mg/dL Estimated GFR (>60) mL/min BUN/Creatinine Ratio (6-22) Glucose (70-100) mg/dL Lactate (0.7-2.1) mmol/L Calcium (8.4-10.2) mg/dL Total Bilirubin (0.2-1.3) mg/dL AST (17-59) IU/L ALT (<50) IU/L Alkaline Phosphatase (38-126) U/L Total Creatine Kinase (55-170) U/L CK-MB (CK-2) CK-MB (CK-2) Rel Index Troponin I (0.01-0.034) ng/mL Total Protein (6.3-8.2) g/dL Albumin (3.5-5.0) g/dL Globulin (1.7-4.1) g/dL Albumin/Globulin Ratio (1.0-2.8) Procalcitonin (<0.5) ng/mL Prolactin (3.7-17.9) ng/mL Salicylates (<20) mg/dL U Opiates 300ng/mL cut Negative (Negative) Ur Oxycodone Screen Negative (Negative) Urine Methadone Screen Negative (Negative) Acetaminophen (10-30) ug/mL Ur Barbiturates Screen Negative (Negative) U Tricyclic Antidepress Positive H (Negative) Ur Phencyclidine Scrn Negative (Negative) Ur Amphetamines Screen Negative (Negative) U Methamphetamines Scrn Negative (Negative) Ur MDMA Scrn (Ecstasy) Negative (Negative) U Benzodiazepines Scrn Positive H (Negative) Urine Cocaine Screen Negative (Negative) U Marijuana (THC) Screen Positive H (Negative) Ethyl Alcohol ( - 10) mg/dL Point of Care Testing Glucose POC 128 Urine Dip Bedside Urine Glucose Negative Bedside Urine Bilirubin - Negative Bedside Urine Ketone - Negative Urine Specific [place] 1.005 Bedside Urine Occult Blood - Negative Bedside Urine pH 6.5 Bedside Urine Protein - Negative Bedside Urine Urobilinogen - Negative Bedside Urine Nitrite - Negative Bedside Urine Leukocytes - Negative Esterase <Viktoriya Trivedi, DO - Last Filed: 06/18/21 18:51> Lab Data Labs: Lab Results 06/18/21 06/18/21 06/18/21 Range/Units 06:30 06:30 06:30 WBC 7.6 (4.5-11.0) X10^3/uL RBC 4.70 (4.5-5.9) X10^6/uL Hgb 14.0 (13.5-17.5) g/dL Hct 40.8 L (41-53) % MCV 86.8 (80-100) fL MCH 29.7 (26-34) PG MCHC 34.3 (30-36) % RDW 13.2 (11.6-14.8) % Plt Count 190 (150-400) X10^3/uL Neut % (Auto) 81.6 H (50-75) % Lymph % (Auto) 13.3 L (25-40) % [place] % (Auto) 3.0 (3-14) % Eos % (Auto) 1.7 L (2-4) % Baso % (Auto) 0.4 (0-2) % Neut # (Auto) 6200 (0385-9398) /uL Lymph # (Auto) 1000 L (5529-6416) /uL [place] # (Auto) 200 (0-900) /uL Eos # (Auto) 100 (0-450) /uL Baso # (Auto) 0 (0-100) /uL PT 12.4 (10.1-12.7) SECONDS INR 1.1 (0.9-1.3) Sodium 147 H (137-145) mmol/L Potassium 4.1 (3.4-5.1) mmol/L Chloride 111 H (98-107) mmol/L Carbon Dioxide 27 (22-32) mmol/L BUN 16 (9-20) mg/dL Creatinine 0.92 (0.66-1.25) mg/dL Estimated GFR > 60.0 (>60) mL/min BUN/Creatinine Ratio 17.4 (6-22) Glucose 124 H (70-100) mg/dL Lactate (0.7-2.1) mmol/L Calcium 10.0 (8.4-10.2) mg/dL Total Bilirubin 0.6 (0.2-1.3) mg/dL AST 19 (17-59) IU/L ALT 18 (<50) IU/L Alkaline Phosphatase 57 (38-126) U/L Total Creatine Kinase 58 (55-170) U/L CK-MB (CK-2) TNP CK-MB (CK-2) Rel Index TNP Troponin I < 0.012 (0.01-0.034) ng/mL Total Protein 8.8 H (6.3-8.2) g/dL Albumin 5.4 H (3.5-5.0) g/dL Globulin 3.4 (1.7-4.1) g/dL Albumin/Globulin Ratio 1.6 (1.0-2.8) Procalcitonin (<0.5) ng/mL Prolactin (3.7-17.9) ng/mL Salicylates (<20) mg/dL U Opiates 300ng/mL cut (Negative) Ur Oxycodone Screen (Negative) Urine Methadone Screen (Negative) Acetaminophen (10-30) ug/mL Ur Barbiturates Screen (Negative) U Tricyclic Antidepress (Negative) Ur Phencyclidine Scrn (Negative) Ur Amphetamines Screen (Negative) U Methamphetamines Scrn (Negative) Ur MDMA Scrn (Ecstasy) (Negative) U Benzodiazepines Scrn (Negative) Urine Cocaine Screen (Negative) U Marijuana (THC) Screen (Negative) Ethyl Alcohol < 10 ( - 10) mg/dL 06/18/21 06/18/21 06/18/21 Range/Units 06:30 06:30 06:30 WBC (4.5-11.0) X10^3/uL RBC (4.5-5.9) X10^6/uL Hgb (13.5-17.5) g/dL Hct (41-53) % MCV (80-100) fL MCH (26-34) PG MCHC (30-36) % RDW (11.6-14.8) % Plt Count (150-400) X10^3/uL Neut % (Auto) (50-75) % Lymph % (Auto) (25-40) % [place] % (Auto) (3-14) % Eos % (Auto) (2-4) % Baso % (Auto) (0-2) % Neut # (Auto) (5246-7077) /uL Lymph # (Auto) (2915-0164) /uL [place] # (Auto) (0-900) /uL Eos # (Auto) (0-450) /uL Baso # (Auto) (0-100) /uL PT (10.1-12.7) SECONDS INR (0.9-1.3) Sodium (137-145) mmol/L Potassium (3.4-5.1) mmol/L Chloride (98-107) mmol/L Carbon Dioxide (22-32) mmol/L BUN (9-20) mg/dL Creatinine (0.66-1.25) mg/dL Estimated GFR (>60) mL/min BUN/Creatinine Ratio (6-22) Glucose (70-100) mg/dL Lactate 1.1 (0.7-2.1) mmol/L Calcium (8.4-10.2) mg/dL Total Bilirubin (0.2-1.3) mg/dL AST (17-59) IU/L ALT (<50) IU/L Alkaline Phosphatase (38-126) U/L Total Creatine Kinase (55-170) U/L CK-MB (CK-2) CK-MB (CK-2) Rel Index Troponin I (0.01-0.034) ng/mL Total Protein (6.3-8.2) g/dL Albumin (3.5-5.0) g/dL Globulin (1.7-4.1) g/dL Albumin/Globulin Ratio (1.0-2.8) Procalcitonin 0.04 (<0.5) ng/mL Prolactin 10.6 (3.7-17.9) ng/mL Salicylates < 1.0 (<20) mg/dL U Opiates 300ng/mL cut (Negative) Ur Oxycodone Screen (Negative) Urine Methadone Screen (Negative) Acetaminophen < 10 L (10-30) ug/mL Ur Barbiturates Screen (Negative) U Tricyclic Antidepress (Negative) Ur Phencyclidine Scrn (Negative) Ur Amphetamines Screen (Negative) U Methamphetamines Scrn (Negative) Ur MDMA Scrn (Ecstasy) (Negative) U Benzodiazepines Scrn (Negative) Urine Cocaine Screen (Negative) U Marijuana (THC) Screen (Negative) Ethyl Alcohol ( - 10) mg/dL 06/18/21 Range/Units 07:17 WBC (4.5-11.0) X10^3/uL RBC (4.5-5.9) X10^6/uL Hgb (13.5-17.5) g/dL Hct (41-53) % MCV (80-100) fL MCH (26-34) PG MCHC (30-36) % RDW (11.6-14.8) % Plt Count (150-400) X10^3/uL Neut % (Auto) (50-75) % Lymph % (Auto) (25-40) % [place] % (Auto) (3-14) % Eos % (Auto) (2-4) % Baso % (Auto) (0-2) % Neut # (Auto) (2636-8557) /uL Lymph # (Auto) (7671-5778) /uL [place] # (Auto) (0-900) /uL Eos # (Auto) (0-450) /uL Baso # (Auto) (0-100) /uL PT (10.1-12.7) SECONDS INR (0.9-1.3) Sodium (137-145) mmol/L Potassium (3.4-5.1) mmol/L Chloride (98-107) mmol/L Carbon Dioxide (22-32) mmol/L BUN (9-20) mg/dL Creatinine (0.66-1.25) mg/dL Estimated GFR (>60) mL/min BUN/Creatinine Ratio (6-22) Glucose (70-100) mg/dL Lactate (0.7-2.1) mmol/L Calcium (8.4-10.2) mg/dL Total Bilirubin (0.2-1.3) mg/dL AST (17-59) IU/L ALT (<50) IU/L Alkaline Phosphatase (38-126) U/L Total Creatine Kinase (55-170) U/L CK-MB (CK-2) CK-MB (CK-2) Rel Index Troponin I (0.01-0.034) ng/mL Total Protein (6.3-8.2) g/dL Albumin (3.5-5.0) g/dL Globulin (1.7-4.1) g/dL Albumin/Globulin Ratio (1.0-2.8) Procalcitonin (<0.5) ng/mL Prolactin (3.7-17.9) ng/mL Salicylates (<20) mg/dL U Opiates 300ng/mL cut Negative (Negative) Ur Oxycodone Screen Negative (Negative) Urine Methadone Screen Negative (Negative) Acetaminophen (10-30) ug/mL Ur Barbiturates Screen Negative (Negative) U Tricyclic Antidepress Positive H (Negative) Ur Phencyclidine Scrn Negative (Negative) Ur Amphetamines Screen Negative (Negative) U Methamphetamines Scrn Negative (Negative) Ur MDMA Scrn (Ecstasy) Negative (Negative) U Benzodiazepines Scrn Positive H (Negative) Urine Cocaine Screen Negative (Negative) U Marijuana (THC) Screen Positive H (Negative) Ethyl Alcohol ( - 10) mg/dL Point of Care Testing Glucose POC 128 Urine Dip Bedside Urine Glucose Negative Bedside Urine Bilirubin - Negative Bedside Urine Ketone - Negative Urine Specific [place] 1.005 Bedside Urine Occult Blood - Negative Bedside Urine pH 6.5 Bedside Urine Protein - Negative Bedside Urine Urobilinogen - Negative Bedside Urine Nitrite - Negative Bedside Urine Leukocytes - Negative Esterase Imaging Data CT scan - head: Radiologist's Impression: PROCEDURE:? CT STROKE ? INDICATIONS:? altered with neglect ? TECHNIQUE:? Noncontrast 4.5 mm thick angled axial sections acquired from the foramen magnum to the vertex, with coronal reformats.? For radiation dose reduction, the following was used:? automated exposure control, adjustment of mA and/or kV according to patient size.? ? COMPARISON:? [facility], CT, CT HEAD/BRAIN WO CON, 07/21/2020, 21:02.? [facility], MR, MR STROKE, 07/21/2020, 9:05.? [facility], CT, CT HEAD/BRAIN WO CON, 07/20/2020, 19:36. ? FINDINGS:? Image quality:? Excellent.? ? CSF spaces:? Basal cisterns are patent.? No extra-axial fluid collections.? The ventricles are symmetric in size and shape.? ? Brain:? Right frontal encephalomalacia is stable compared to prior exams.? No intracranial bleeds or masses.? There is cerebral volume loss for age, with resultant ventricular and sulcal prominence.? There are periventricular and deep white matter chronic small vessel ischemic changes.? There is intracranial internal carotid artery and vertebral artery atherosclerosis.? ? Skull and face:? Calvarium and visualized facial bones appear intact, without suspicious lesions.? ? Sinuses:? Visualized sinuses and mastoids are clear.? ? IMPRESSION:? No acute intracranial disease process. ? This study fulfills neurological imaging criteria for inclusion or exclusion of acute stroke therapies based on available published neurological guidelines.? ? ? Dictated by: Gris Hassan MD, PhD on 06/18/2021 at 7:28? CTA - brain/neck: Radiologist's Impression: PROCEDURE:? CT ANGIO HEAD AND NECK ? INDICATIONS:? change in mental status ? TECHNIQUE:? Pre-contrast 4.5 mm thick sections acquired from the foramen magnum to the vertex.? After the administration of intravenous contrast, 1 mm thick sections acquired from the aortic arch through the [place] of [place].? Post-contrast 4.5 mm thick sections then re- acquired from the foramen magnum to the vertex.? 3-dimensional pqorpva-gdqdgpebi-ndkyqjgwpi (MIP) and/or volume rendering reformats were acquired of the central intracranial vasculature and neck separately. ? COMPARISON:? [facility], CT, CT HEAD/BRAIN WO CON, 07/20/2020, 19:36.? [facility], MR, MR STROKE, 07/21/2020, 9:05. ? FINDINGS:? Image quality:? Excellent.? ? BRAIN:? CSF spaces:? Ventricles are normal in size and shape.? Basal cisterns are patent.? No extra-axial fluid collections.? ? Brain:? Large area encephalomalacia noted in the right frontal lobe.? Subtle hypodensity noted in the left internal capsule which may represent subacute infarct.? Subtle, wedge-shaped hypodensity noted in the right cerebellar hemisphere which may represent acute lacunar infarct.? No midline shift.? No intracranial bleeds or masses.? Bustillo-white matter interface appears intact.? ? Skull and face:? Calvarium and facial bones appear intact, without suspicious lesions.? Orbits appear normal.? ? Sinuses:? Sinuses and mastoids are clear.? ? HEAD CT ANGIOGRAPHY:? Anterior circulation:? There is absence of flow in the proximal intracranial segments of the internal carotid arteries bilaterally secondary to occlusion of the internal carotid artery at the origins.? There is reconstitution of flow in the clinoid and supraclinoid segments of the internal carotid arteries bilaterally via retrograde flow in the ophthalmic arteries and the the posterior communicating arteries..? The flow within the paired anterior cerebral arteries is normal and symmetric.? The flow within the middle cerebral arteries is normal and symmetric.? The anterior communicating artery is seen.? No aneurysms are seen.? ? Posterior circulation:? Atherosclerotic calcifications noted in the V4 segments of the vertebral arteries bilaterally which causes short segment high-grade stenoses.? Normal flow noted in the basilar artery..? Flow within the posterior cerebral arteries is normal and symmetric.? No aneurysms are seen. ? Dural sinuses demonstrate normal postcontrast enhancement. ? ? NECK CT ANGIOGRAPHY:? Carotid system:? The great vessels demonstrate a conventional anatomy as they arise from the aortic arch.? The origins of the common carotid arteries appear patent.? The common carotid arteries demonstrate normal caliber and courses.? The internal carotid arteries are occluded at the origins bilaterally.? Flow noted in the external carotid ar teries bilaterally.? Atherosclerotic plaque causes severe, short segment stenosis of the origins of the external carotid arteries bilaterally. ? Posterior circulation:? Calcified atherosclerotic plaque noted in the origins of vertebral arteries bilaterally which causes high-grade stenosis of the vessels.? Flow noted in the vertebral arteries distal to the high-grade stenosis in the origins of the vessels.? The more superior extracranial portions of both vertebral arteries also demonstrate normal courses and calibers.? They join to form a normal appearing basilar artery.? ? Soft tissues:? Visualized neck soft tissues demonstrate no suspicious abnormalities.? ? Bones:? No suspicious bony lesions. Spine degenerative disc disease and facet arthropathy. Visualized cervical spine appears normally aligned.? ? ? IMPRESSION:? ? 1. Subtle hypodensities left internal capsule in the right cerebellar hemisphere which may represent early infarct.s? Recommend MRI of the brain for additional evaluation if clinically indicated. ? 2. Large chronic right frontal infarct stable compared to prior exams. ? 3. No intracranial hemorrhage. ? 4. The internal carotid arteries are occluded at the origins bilaterally.? There is reconstitution of diminished flow in the clinoid and supraclinoid segments of the internal carotid arteries bilaterally presumably via retrograde flow with the ophthalmic arteries and collateral flow with the posterior communicating arteries. ? 5.? High-grade stenosis involving the origins of the vertebral arteries bilaterally in the V4 segments of the vertebral arteries bilaterally. ? Findings discussed with Dr. Trivedi on June 18, 2021 at 7:39 a.m..? ? Any quantitative measurements of stenosis were performed using NASCET criteria.? ? ? Dictated by: Gris Hassan MD, PhD on 06/18/2021 at 7:31 ? ? Approved by: Gris Hassan MD, PhD on 06/18/2021 at 7:46 ? MR Brain: Radiologist's Impression: PROCEDURE:? MR HEAD/BRAIN WO CON ? INDICATIONS:? stroke ? TECHNIQUE:? Non-contrast axial T1 spin echo, axial T2 fast spin echo, sagittal and axial FLAIR, coronal T2 fast spin echo, axial gradient echo, axial diffusion and ADC through the brain.? ? COMPARISON:? [facility], CT, CT ANGIO HEAD AND NECK, 06/18/2021, 6:47.? [facility], MR, MR STROKE, 12/23/2018, 14:45.? [facility], MR, MR STROKE, 07/21/2020, 9:05. ? FINDINGS:? Image quality:? Motion artifact limits evaluation of some sequences. ? CSF spaces:? There is ex vacuo dilatation of the right lateral ventricle secondary to remote right frontal lobe infarct.? The ventricles are otherwise symmetric in size. ? Brain:? Encephalomalacia is redemonstrated within the right frontal lobe secondary to old infarct.? There is a very subtle region of increased restricted diffusion within the posterior aspect of the right frontal lobe (series 5/image 66.? There is no corresponding T2 shine through on the associated ADC map (series 6/image 16).? Findings suggest a small region of acute or subacute infarct.? No other foci of increased restricted diffusion.? No new mass effect.? There are scattered T2 hyperintense foci throughout the d eep and periventricular white matter consistent with microvascular ischemic disease. ? Skull and face:? Calvarial bone marrow is normal in signal.? Orbits are normal.? ? Sinuses:? Sinuses and mastoids are clear.? ? IMPRESSION:? ? 1. Subtle region of increased restricted diffusion at the margins of the remote right frontal infarct suspicious for acute or subacute infarct. ? ? These findings were discussed with Dr. Trivedi at 8:49 a.m. On June 18, 2021. ? Dictated by: Joseline Hernández M.D. on 06/18/2021 at 8:39 ? ? Approved by: Joseline Hernández M.D. on 06/18/2021 at 8:50 ? ECG Data Interpretation: Normal sinus rhythm rate 56 MI interval 162 QRS 130 QTC 428 the T-waves noted in lead [address] changes MDM Narrative Medical decision making narrative: Patient signed out to me by Dr. Wolf. Waiting for CT results. I have seen evaluated patient myself. He is overall in extremely poor historian. Has obvious left-sided neglect his left-sided weakness but not really moving his right side either. He can identify some objects but not all objects. He can squeeze hands mostly on right not able to lift any extremity off of gravity. Possible seizure with Fly's paralysis versus other. CT in July 2020 does show a large right frontal lobe infarction with encephalomalacia. Patient now seems to be moving right side of body but still has some left-sided kristie-neglect. Blood work is overall reassuring negative lactic acid elevated prolactin no sign of infection drug screen is positive for tricyclics benzos and marijuana. 07:54 neurology stroke consult today in regards to high-grade stenosis in bilateral carotid artery occlusions along with presentation. Request that there is a perfusion study which would help determine if it is acute or chronic but he is aware we are unable to do such as study here. His agrees with MRI will call him back with results. He does suggest that symptoms may be from hypoperfusion episode, which now seems to be improving. 9:00 neurology updated on MRI results which does show a subtle stroke. At this time he agrees with echo embolic workup aspirin and Lipitor. Dr. Phipps updated patient's symptoms test results Neurology recommendations agrees with at 1015 patient becoming more awake more agitated all rolling over to his right side. Stating that he needs to have a bowel movement he did just get rectal asp irin because he was initially unable to pass a swallow evaluation. Becoming somewhat aggressive towards staff. He was given Ativan for his MRI now given a dose of Haldol which does not seem to be helping. Discharge Plan Departure Patient Disposition: Admitted As Inpatient Clinical Impression: CVA (cerebral vascular accident) Admit Date/Time: 06/18/21 09:46 Admit Provider: Elvia Phipps
[2021-06-18 06:45] LABS: Add Manual Diff / Slide Review NO; Basophils Absolute Auto 0 /uL (0-100); Basophils Percent Auto 0.4 % (0-2); Eosinophils Absolute Auto 100 /uL (0-450); Eosinophils Percent Auto 1.7 % (2-4); Hematocrit 40.8 % (41-53); Lymphocytes Absolute Auto 1000 /uL (1100-4500); Lymphocytes Percent Auto 13.3 % (25-40); Mean Corpuscular HGB Conc 34.3 % (30-36); Mean Corpuscular Hemoglobin 29.7 PG (26-34); Mean Corpuscular Volume 86.8 fL (80-100); Monocytes Absolute Auto 200 /uL (0-900); Neutrophils Absolute Auto 6200 /uL (1500-7000); Neutrophils Percent Auto 81.6 % (50-75); Platelet Count 190 X10^3/uL (150-400); Red Cell Distribution Width 13.2 % (11.6-14.8); White Blood Cell Count 7.6 X10^3/uL (4.5-11.0)
--- NOTE | 2021-06-18 06:47 | DI.CT.S_ITS ---
PROCEDURE: CT ANGIO HEAD AND NECK INDICATIONS: change in mental status TECHNIQUE: Pre-contrast 4.5 mm thick sections acquired from the foramen magnum to the vertex. After the administration of intravenous contrast, 1 mm thick sections acquired from the aortic arch through the [place] of [place]. Post-contrast 4.5 mm thick sections then re-acquired from the foramen magnum to the vertex. 3-dimensional akyuzra-pkqfepgam-fkxjutrqog (MIP) and/or volume rendering reformats were acquired of the central intracranial vasculature and neck separately. COMPARISON: [facility], CT, CT HEAD/BRAIN WO CON, 07/20/2020, 19:36. [facility], MR, MR STROKE, 07/21/2020, 9:05. FINDINGS: Image quality: Excellent. BRAIN: CSF spaces: Ventricles are normal in size and shape. Basal cisterns are patent. No extra-axial fluid collections. Brain: Large area encephalomalacia noted in the right frontal lobe. Subtle hypodensity noted in the left internal capsule which may represent subacute infarct. Subtle, wedge-shaped hypodensity noted in the right cerebellar hemisphere which may represent acute lacunar infarct. No midline shift. No intracranial bleeds or masses. Bustillo-white matter interface appears intact. Skull and face: Calvarium and facial bones appear intact, without suspicious lesions. Orbits appear normal. Sinuses: Sinuses and mastoids are clear. HEAD CT ANGIOGRAPHY: Anterior circulation: There is absence of flow in the proximal intracranial segments of the internal carotid arteries bilaterally secondary to occlusion of the internal carotid artery at the origins. There is reconstitution of flow in the clinoid and supraclinoid segments of the internal carotid arteries bilaterally via retrograde flow in the ophthalmic arteries and the the posterior communicating arteries.. The flow within the paired anterior cerebral arteries is normal and symmetric. The flow within the middle cerebral arteries is normal and symmetric. The anterior communicating artery is seen. No aneurysms are seen. Posterior circulation: Atherosclerotic calcifications noted in the V4 segments of the vertebral arteries bilaterally which causes short segment high-grade stenoses. Normal flow noted in the basilar artery.. Flow within the posterior cerebral arteries is normal and symmetric. No aneurysms are seen. Dural sinuses demonstrate normal postcontrast enhancement. NECK CT ANGIOGRAPHY: Carotid system: The great vessels demonstrate a conventional anatomy as they arise from the aortic arch. The origins of the common carotid arteries appear patent. The common carotid arteries demonstrate normal caliber and courses. The internal carotid arteries are occluded at the origins bilaterally. Flow noted in the external carotid arteries bilaterally. Atherosclerotic plaque causes severe, short segment stenosis of the origins of the external carotid arteries bilaterally. Posterior circulation: Calcified atherosclerotic plaque noted in the origins of vertebral arteries bilaterally which causes high-grade stenosis of the vessels. Flow noted in the vertebral arteries distal to the high-grade stenosis in the origins of the vessels. The more superior extracranial portions of both vertebral arteries also demonstrate normal courses and calibers. They join to form a normal appearing basilar artery. Soft tissues: Visualized neck soft tissues demonstrate no suspicious abnormalities. Bones: No suspicious bony lesions. Spine degenerative disc disease and facet arthropathy. Visualized cervical spine appears normally aligned. IMPRESSION: 1. Subtle hypodensities left internal capsule in the right cerebellar hemisphere which may represent early infarct.s Recommend MRI of the brain for additional evaluation if clinically indicated. 2. Large chronic right frontal infarct stable compared to prior exams. 3. No intracranial hemorrhage. 4. The internal carotid arteries are occluded at the origins bilaterally. There is reconstitution of diminished flow in the clinoid and supraclinoid segments of the internal carotid arteries bilaterally presumably via retrograde flow with the ophthalmic arteries and collateral flow with the posterior communicating arteries. 5. High-grade stenosis involving the origins of the vertebral arteries bilaterally in the V4 segments of the vertebral arteries bilaterally. Findings discussed with Dr. Trivedi on June 18, 2021 at 7:39 a.m.. Any quantitative measurements of stenosis were performed using NASCET criteria. Dictated by: Gris Hassan MD, PhD on 06/18/2021 at 7:31 Approved by: Gris Hassan MD, PhD on 06/18/2021 at 7:46
[2021-06-18 06:49] LABS: INR 1.1 (0.9-1.3); Prothrombin Time 12.4 SECONDS (10.1-12.7)
--- NOTE | 2021-06-18 06:49 | PC.NURSE ---
pt has neglect to the left arm and leg and right facial droop noted, pt stares to the right side not acknowledging the left
--- NOTE | 2021-06-18 06:51 | PC.NURSE ---
to CT per stretcher
--- NOTE | 2021-06-18 06:52 | PC.NURSE ---
drawn per EMS
[2021-06-18 06:53] LABS: Alanine Aminotransferase 18 IU/L (<50); Albumin 5.4 g/dL (3.5-5.0); Albumin Globulin Ratio 1.6 (1.0-2.8); Alkaline Phosphatase 57 U/L (38-126); Aspartate Aminotransferase 19 IU/L (17-59); BUN Creatinine Ratio 17.4 (6-22); Bilirubin Total 0.6 mg/dL (0.2-1.3); Blood Urea Nitrogen 16 mg/dL (9-20); Carbon Dioxide 27 mmol/L (22-32); Chloride 111 mmol/L (98-107); Creatine Kinase 58 U/L (55-170); Estimated Glomerular Filt Rate > 60.0 mL/min (>60); Ethanol (ETOH) < 10 mg/dL; Globulin 3.4 g/dL (1.7-4.1); Glucose 124 mg/dL (70-100); HEMOLYSIS < 15 (0-50); Potassium 4.1 mmol/L (3.4-5.1); Sodium 147 mmol/L (137-145); Total Protein 8.8 g/dL (6.3-8.2)
[2021-06-18 07:04] LABS: Troponin I < 0.012 ng/mL (0.01-0.034)
[2021-06-18 07:10] LABS: Acetaminophen < 10 ug/mL (10-30); Salicylate < 1.0 mg/dL (<20)
[2021-06-18 07:11] LABS: Lactate (Lactic Acid) 1.1 mmol/L (0.7-2.1)
[2021-06-18 07:27] LABS: Procalcitonin 0.04 ng/mL (<0.5)
[2021-06-18 07:34] LABS: Ur Creatinine Normal (Normal); Ur Specific Gravity Normal (Normal); Urine pH Normal (Normal)
[2021-06-18 07:36] LABS: UR Morphine/Opiate cutoff 300 Negative (Negative); Urine Amphetamines Negative (Negative); Urine Cocaine Negative (Negative); Urine Methamphetamines Negative (Negative); Urine Tetrahydrocannabinol Positive (Negative)
--- NOTE | 2021-06-18 07:36 | DI.MRI.S_ITS ---
PROCEDURE: MR HEAD/BRAIN WO CON INDICATIONS: stroke TECHNIQUE: Non-contrast axial T1 spin echo, axial T2 fast spin echo, sagittal and axial FLAIR, coronal T2 fast spin echo, axial gradient echo, axial diffusion and ADC through the brain. COMPARISON: [facility], CT, CT ANGIO HEAD AND NECK, 06/18/2021, 6:47. [facility], MR, MR STROKE, 12/23/2018, 14:45. [facility], MR, MR STROKE, 07/21/2020, 9:05. FINDINGS: Image quality: Motion artifact limits evaluation of some sequences. CSF spaces: There is ex vacuo dilatation of the right lateral ventricle secondary to remote right frontal lobe infarct. The ventricles are otherwise symmetric in size. Brain: Encephalomalacia is redemonstrated within the right frontal lobe secondary to old infarct. There is a very subtle region of increased restricted diffusion within the posterior aspect of the right frontal lobe (series 5/image 66. There is no corresponding T2 shine through on the associated ADC map (series 6/image 16). Findings suggest a small region of acute or subacute infarct. No other foci of increased restricted diffusion. No new mass effect. There are scattered T2 hyperintense foci throughout the deep and periventricular white matter consistent with microvascular ischemic disease. Skull and face: Calvarial bone marrow is normal in signal. Orbits are normal. Sinuses: Sinuses and mastoids are clear. IMPRESSION: 1. Subtle region of increased restricted diffusion at the margins of the remote right frontal infarct suspicious for acute or subacute infarct. These findings were discussed with Dr. Trivedi at 8:49 a.m. On June 18, 2021. Dictated by: Joseline Hernández M.D. on 06/18/2021 at 8:39 Approved by: Joseline eHrnández M.D. on 06/18/2021 at 8:50
[2021-06-18 07:37] LABS: Urine Barbiturates Negative (Negative); Urine Benzodiazepines Positive (Negative); Urine MDMA Negative (Negative); Urine Methadone Negative (Negative); Urine Oxycodone Negative (Negative); Urine Phencyclidine Negative (Negative); Urine Tricyclic Antidepressant Positive (Negative)
[2021-06-18 07:53] LABS: Prolactin 10.6 ng/mL (3.7-17.9)
[2021-06-18] MEDS: LORazepam 2 MG/ML INJ 1 MG IV ×2 (07:57→10:49)
[2021-06-18] MEDS: SODIUM CHLORIDE 0.9% 1,000 ML 150 ML IV (08:02)
--- NOTE | 2021-06-18 08:21 | PC.NURSE ---
Pt taken to MRI, Pt alert and moving right side on command. Spoke with mother to complete MRI checklist.
--- NOTE | 2021-06-18 08:48 | PC.NURSE ---
Pt is now moving left leg. Unable to lift but is able to contract. Pt attempting to sit up in bed. Has eyes are deviated to the right.
[2021-06-18] MEDS: ASPIRIN 300 MG SUPP PR (10:00)
[2021-06-18 10:22] LABS: COVID19 -Nasal RAPID Negative (Negative)
[2021-06-18] MEDS: HALOPERIDOL 5 MG/ML VIAL 2 MG IV (10:27)
--- NOTE | 2021-06-18 10:30 | PC.NURSE ---
Medication reconciliation completed using medical record. Pt unable to assist r/t altered mental status. Unable to confirm metoprolol and lisinopril. Not filled recently and not noted in recent chart notes
--- NOTE | 2021-06-18 11:00 | PC.NURSE ---
Pt urinated in his brief, pt and bed was cleaned
[2021-06-18] MEDS: diphenhydrAMINE 50 MG/ML VIAL IV (11:25)
--- NOTE | 2021-06-18 11:26 | PC.NURSE ---
Pt is getting very aggitated yelling Fuck you get me out of here! Unable to respond to direct questions. Makes needs known when he has to urinate. When trying to reposition pt in bed he attempts to punch and kick staff. Regaining strength on his L side, moving L upper and lower extremities but not responding to requested to test L floor refinisher strength.
--- NOTE | 2021-06-18 11:56 | PC.NURSE ---
Pt sleeping. Resp even and unlabored
--- NOTE | 2021-06-18 16:54 | PC.NURSE ---
Addendum entered by Deborah Titus R.N. 06/18/21 18:12: pt now awake and alert, able to have conversation. is confused regarding where he is. States his head hurts. medicated with tylenol crushed in applesauce after completion of swallow eval. aspirations precautions in place. notified that pt is now more alert. Original Note: admit pt to AC from ED at 1420. VSS, HTN. Pt sleeping, does moan when transferred from stretcher to bed but than back to sleep. Incontinent of urine, brief changed; brandon-care. pt then positioned self to L side and tucked/folded arms up. Pt not verbally responding to questions or following any commands. unable to assess NIH per the same though does move LUE. Pt with 1:1 supervision. IVF infusing per order/EMAR.
--- NOTE | 2021-06-18 17:09 | PM.HP.1 ---
History of Present Illness History of Present Illness Date Patient Seen: 06/18/21 Chief complaint: Decreased LOC Narrative: 56-year-old male with a history of bipolar affective disorder, TIA, polysubstance abuse, hypertension, osteomyelitis of the lumbar spine, who presented to the ED with generalized body pain. The patient's mother woke up to go to the bathroom in her to sound in the living room found him sitting on the floor tapping on a bookshelf in an odd manner. He was not answering her, he was nonverbal in acting abnormally. He was in a last known to be normal the day before. The patient received Ativan in the emergency room for agitated behavior. By the time he arrived to the medical floor he was fairly sedated unable to communicate and unable to verbally respond. All history is obtained from the emergency department and prior medical records. Head CT obtained in the emergency department revealed right frontal encephalomalacia stable compared to prior exams. There were deep periventricular white matter chronic small ischemic changes. There was intracranial internal carotid artery stenosis. There was no acute disease identified. Patient had a CT angio of the head and neck. This revealed subtle hypodensities in the left internal capsule and right cerebellar hemispheres. He had a large chronic right frontal infarct which was stable. No intracranial hemorrhage. The patient also had high-grade stenosis involving the origins of the vertebral arteries bilaterally. Internal carotid arteries were occluded bilaterally as well. Head MRI: subtle region of increased restricted diffusion at the margins of the remote right frontal infarct suspicious for acute or subacute infarct. Stroke Neurology was consulted. They recommended aspirin and statin, no Plavix, and to continue an embolic workup. ? ? 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) Surgical History H/O valvuloplasty S/P CABG x 4 Family & Social History Family History Grandfather Heart attack Family/Other Heart attack Social History: household members family Prior Living Arrangements House Safety & Behavioral: Feels Safe in Current Yes Environment Been Physically Hurt or No Threatened By a Person Tobacco & Substance use: Tobacco type cigarettes Smoking Status Current every day smoker alcohol intake former alcohol intake frequency other Substance Use Type does not use Meds Home Medications and Allergies Home Medications Medication Instructions Recorded Confirmed Type lisinopril 20 mg tablet 20 mg PO DAILY 07/15/18 06/12/21 History atorvastatin 80 mg tablet 80 mg PO BEDTIME 01/23/20 06/18/21 History metoprolol succinate 25 mg capsule 25 mg PO DAILY 01/23/20 06/12/21 History sprinkle, ext. release 24 hr bupropion HCl 150 mg 24 hr tablet, 450 mg PO QAM #90 tab 05/31/21 06/18/21 Rx extended release olanzapine 5 mg tablet 15 mg PO BEDTIME #90 tab 05/31/21 06/18/21 Rx diazepam 5 mg tablet 5 mg PO BID #60 tab 06/03/21 06/18/21 Rx cyclobenzaprine 5 mg tablet 5 mg PO TID PRN #20 tab 06/12/21 06/18/21 Rx baclofen 20 mg tablet 20 mg PO TID #20 tab 06/13/21 06/18/21 Rx gabapentin 100 mg capsule 400 mg PO TID 06/18/21 06/18/21 History hydroxyzine HCl 25 mg tablet 25 mg PO TID 06/18/21 06/18/21 History Allergies Allergy/AdvReac Type Severity Reaction Status Date / Time No Known Drug Allergies Allergy Verified 06/12/21 14:24 Review of Systems Review of Systems Narrative: Review of systems is unobtainable Exam Vital Signs (past 8 hours): - 06/18/21 09:39 06/18/21 09:40 06/18/21 10:31 Temperature Pulse Rate 84 84 78 Respiratory Rate Blood Pressure 123/99 H Pulse Oximetry 93 92 96 06/18/21 10:32 06/18/21 11:30 06/18/21 11:31 Temperature Pulse Rate 86 87 81 Respiratory Rate 18 Blood Pressure 142/73 H Pulse Oximetry 95 97 98 06/18/21 12:01 06/18/21 12:18 06/18/21 12:40 Temperature Pulse Rate 67 61 63 Respiratory Rate 20 17 Blood Pressure Pulse Oximetry 100 99 99 06/18/21 13:12 06/18/21 13:27 06/18/21 14:20 Temperature 98.2 F Pulse Rate 61 62 71 Respiratory Rate 16 18 16 Blood Pressure 170/87 H Pulse Oximetry 100 100 95 Oxygen Delivery Method Room Air Oxygen Flow Rate 0 Narrative Exam Narrative: Lethargic and sedated male lying in bed who is minimally responsive he does withdraw to stimuli HENNY Other: HEENT: Normocephalic atraumatic sclerae anicteric Resp Other: Lungs clear to auscultation Cardio Other: Cardiac exam: Regular rate and rhythm normal S1-S2 GI Other: Abdomen soft nontender nondistended Neuro Other: Patient is fairly lethargic, he withdraw all extremities to pain. It is very difficult to complete a neuro exam is he is unable to really cooperate Extrem Other: No edema Objective Labs Result Diagrams: 06/18/21 06:30 06/18/21 06:30 Labs: Laboratory Results - last 24 hr 06/18/21 06/18/21 06/18/21 06:30 06:30 06:30 WBC 7.6 RBC 4.70 Hgb 14.0 Hct 40.8 L MCV 86.8 MCH 29.7 MCHC 34.3 RDW 13.2 Plt Count 190 Neut % (Auto) 81.6 H Lymph % (Auto) 13.3 L [place] % (Auto) 3.0 Eos % (Auto) 1.7 L Baso % (Auto) 0.4 Neut # (Auto) 6200 Lymph # (Auto) 1000 L [place] # (Auto) 200 Eos # (Auto) 100 Baso # (Auto) 0 PT 12.4 INR 1.1 Sodium 147 H Potassium 4.1 Chloride 111 H Carbon Dioxide 27 BUN 16 Creatinine 0.92 Estimated GFR > 60.0 BUN/Creatinine Ratio 17.4 Glucose 124 H Lactate Calcium 10.0 Total Bilirubin 0.6 AST 19 ALT 18 Alkaline Phosphatase 57 Total Creatine Kinase 58 CK-MB (CK-2) TNP CK-MB (CK-2) Rel Index TNP Troponin I < 0.012 Total Protein 8.8 H Albumin 5.4 H Globulin 3.4 Albumin/Globulin Ratio 1.6 Procalcitonin Prolactin Salicylates U Opiates 300ng/mL cut Ur Oxycodone Screen Urine Methadone Screen Acetaminophen Ur Barbiturates Screen U Tricyclic Antidepress Ur Phencyclidine Scrn Ur Amphetamines Screen U Methamphetamines Scrn Ur MDMA Scrn (Ecstasy) U Benzodiazepines Scrn Urine Cocaine Screen U Marijuana (THC) Screen Ethyl Alcohol < 10 SARS-CoV-2 (PCR) 06/18/21 06/18/21 06/18/21 06:30 06:30 06:30 WBC RBC Hgb Hct MCV MCH MCHC RDW Plt Count Neut % (Auto) Lymph % (Auto) [place] % (Auto) Eos % (Auto) Baso % (Auto) Neut # (Auto) Lymph # (Auto) [place] # (Auto) Eos # (Auto) Baso # (Auto) PT INR Sodium Potassium Chloride Carbon Dioxide BUN Creatinine Estimated GFR BUN/Creatinine Ratio Glucose Lactate 1.1 Calcium Total Bilirubin AST ALT Alkaline Phosphatase Total Creatine Kinase CK-MB (CK-2) CK-MB (CK-2) Rel Index Troponin I Total Protein Albumin Globulin Albumin/Globulin Ratio Procalcitonin 0.04 Prolactin 10.6 Salicylates < 1.0 U Opiates 300ng/mL cut Ur Oxycodone Screen Urine Methadone Screen Acetaminophen < 10 L Ur Barbiturates Screen U Tricyclic Antidepress Ur Phencyclidine Scrn Ur Amphetamines Screen U Methamphetamines Scrn Ur MDMA Scrn (Ecstasy) U Benzodiazepines Scrn Urine Cocaine Screen U Marijuana (THC) Screen Ethyl Alcohol SARS-CoV-2 (PCR) 06/18/21 06/18/21 07:17 09:55 WBC RBC Hgb Hct MCV MCH MCHC RDW Plt Count Neut % (Auto) Lymph % (Auto) [place] % (Auto) Eos % (Auto) Baso % (Auto) Neut # (Auto) Lymph # (Auto) [place] # (Auto) Eos # (Auto) Baso # (Auto) PT INR Sodium Potassium Chloride Carbon Dioxide BUN Creatinine Estimated GFR BUN/Creatinine Ratio Glucose Lactate Calcium Total Bilirubin AST ALT Alkaline Phosphatase Total Creatine Kinase CK-MB (CK-2) CK-MB (CK-2) Rel Index Troponin I Total Protein Albumin Globulin Albumin/Globulin Ratio Procalcitonin Prolactin Salicylates U Opiates 300ng/mL cut Negative Ur Oxycodone Screen Negative Urine Methadone Screen Negative Acetaminophen Ur Barbiturates Screen Negative U Tricyclic Antidepress Positive H Ur Phencyclidine Scrn Negative Ur Amphetamines Screen Negative U Methamphetamines Scrn Negative Ur MDMA Scrn (Ecstasy) Negative U Benzodiazepines Scrn Positive H Urine Cocaine Screen Negative U Marijuana (THC) Screen Positive H Ethyl Alcohol SARS-CoV-2 (PCR) Negative Assessment & Plan Assessment & Plan narrative: 48-year-old male with a history of bipolar disorder, prior stroke, hypertension, osteomyelitis of the lumbar spine, hyperlipidemia admitted to the hospital with a new CVA Patient with altered mental status, acute encephalopathy likely related to an acute stroke MRI confirms restricted diffusion involving the right frontal lobe likely representing an acute or subacute infarct Patient will be started on atorvastatin 80 mg daily, continue aspirin 81 mg daily, will obtain cardiac echo to rule out an embolic focus Patient will be initiated on Lovenox 40 mg subQ daily He will remain NPO, will obtain a speech consultation for swallow evaluation Will obtain PT OT consultation Will continue serial neurological assessment once his mental status improves Will start IV hydration with normal saline at 80 for cc an hour Hypertension Will continue his usual medications to include lisinopril and metoprolol At the same time will not over treat excessive blood pressures to allow for permissive hypertension Bipolar affective disorder Will continue olanzapine, bupropion History of osteomyelitis with probable chronic back pain Will continue baclofen, cyclobenzaprine, and gabapentin, and Valium Bilateral carotid occlusions, with vertebral artery stenosis, No interventions indicated at this time Patient will be admitted to the hospital as an inpatient He is unable to provide any history and therefore will be made a full code His mother is his surrogate decision maker and will note that in his record I have utilized all available methods to review update confirm the patient's current medications Time Spent With Patient Critical Care time: I spent a total of [] minutes of critical care time on this patient's care today; this time is exclusive of procedural time. Quality VTE Deep Vein Thrombosis/Pulmonary Embolism Present on Admission: No
[2021-06-18] MEDS: SODIUM CHLORIDE 0.45% 1,000 ML 100 ML IV (18:05)
[2021-06-18] MEDS: ACETAMINOPHEN 325 MG TABLET 650 MG PO (18:06)
[2021-06-18 18:26] LABS: Alanine Aminotransferase 16 IU/L (<50); Albumin 4.5 g/dL (3.5-5.0); Albumin Globulin Ratio 1.6 (1.0-2.8); Alkaline Phosphatase 41 U/L (38-126); Aspartate Aminotransferase 19 IU/L (17-59); BUN Creatinine Ratio 17.7 (6-22); Bilirubin Total 0.7 mg/dL (0.2-1.3); Blood Urea Nitrogen 14 mg/dL (9-20); Calcium 9.4 mg/dL (8.4-10.2); Carbon Dioxide 25 mmol/L (22-32); Chloride 114 mmol/L (98-107); Estimated Glomerular Filt Rate > 60.0 mL/min (>60); Globulin 2.9 g/dL (1.7-4.1); Glucose 83 mg/dL (70-100); HEMOLYSIS 19 (0-50); Potassium 3.8 mmol/L (3.4-5.1); Sodium 146 mmol/L (137-145); Total Protein 7.4 g/dL (6.3-8.2)
[2021-06-18] MEDS: hydrOXYzine pamoate 25 MG CAPSULE PO (19:52)
--- NOTE | 2021-06-18 20:38 | PC.NURSE ---
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 Ran in room. Patient had kicked scd machine off the bed. I asked what's going on? Patient said I hurt. I don't want that thing. He pointed to his legs.
[2021-06-18] MEDS: diazePAM 5 MG TABLET PO (21:02)
[2021-06-18] MEDS: OLANZapine ODT 10 MG TAB 15 MG PO (21:02)
[2021-06-18] MEDS: ATORVASTATIN 20 MG TABLET 80 MG PO (21:02)
[2021-06-18] MEDS: GABAPENTIN 400 MG CAPSULE PO (21:02)
[2021-06-18] MEDS: BACLOFEN 10 MG TABLET 20 MG PO (21:02)
--- NOTE | 2021-06-18 21:59 | PC.NURSE ---
Addendum entered by Andreea Cash R.N. 06/19/21 00:03: This RN attempted to complete NIH assessment at around 2044, however, as stated below, pt was combative and not allowing for full exam. Pts strength was equal in both hands and when pt was getting out of bed, leg strength seems to be equal and pt was able to stand without difficulties. Will continue to monitor and notify provider as needed. Original Note: This RN was completing an NIH screening on the patient and asked the patient to squeeze her hands to test pts plant pathology teacher. Pt began to squeeze this RNs hands and pressed his finger nails into this RNs index finger. Pt was repeatly told to let go, and just asked is this tight enough for you. This RN was able to get her hands free from the patient. At 2144 pt is repeatedly getting out of bed and pushing this RN out of the way saying that he is going to get the (swear word) out of here. Pt was helped back into bed and explained that he cannot get up d/t safety concerns. This RN contacted provider BENITA Almeida about incidents and is waiting on orders. truck driver heavy also notified.
--- NOTE | 2021-06-18 22:06 | PC.NURSE ---
Addendum entered by Elvia Silver CNA 06/18/21 22:18: Patient is taking off telly and flipping off staff walking by. Patient threw the telemetry unit off, the unit hit wall. I told him he needed to leave the teley on, that his doctor wanted it on. He asked who the doctor was. I said nurse Elia Lara. Patient then made a racial slur. I said Okay sir, leave your teley on please. I left the room. 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 When we got him into bed he said he needed to urinate. I got the urinal for him. He said I want to pee in the corner. I said no I don't think that's a good idea. Placed patient's penis in the urinal. Patient then told me You better not have me pee on my leg. I said no I won't. Patient then said I'm peeing like a bitch. You want me to pee like a bitch. I said No. I'm not. I'm having you pee in the urinal so I can measure. And don't swear at me. Patient then said You're looking at my peen. You like peen don't you? At that my voice turned serious and I said: I don't like peen. You do not talk to me that way. That's not okay. Patient rolled his eyes and said sorry. Andreea Cash RN came into the room and I told Andreea what happened with patient in room. Patient told Andreea I said I was sorry. I said but the nurse needs to know what was said. Patient attempted to void. He said I'm done. No urine in urinal. Put bed in lowest position. Bed alarm on. Call light within reach.
[2021-06-19] VITALS (9 sets, daily range): BP systolic 133–185; BP diastolic 67–92; PULSE 47–78; RESP 14–18; TEMP 36.3–36.9; O2SAT 98–100
[2021-06-19] MEDS: SODIUM CHLORIDE 0.45% 1,000 ML 100 ML IV (04:05)
[2021-06-19] MEDS: ACETAMINOPHEN 325 MG TABLET 650 MG PO ×3 (06:11→18:04)
[2021-06-19] MEDS: lisinopriL 20 MG TABLET PO (08:15)
[2021-06-19] MEDS: GABAPENTIN 400 MG CAPSULE PO ×3 (08:15→20:10)
[2021-06-19] MEDS: BACLOFEN 10 MG TABLET 20 MG PO ×3 (08:15→20:10)
[2021-06-19] MEDS: ASPIRIN EC 81 MG TABLET PO (08:16)
[2021-06-19] MEDS: ENOXAPARIN 40 MG/0.4 ML SYRINGE SUBCUT (08:16)
[2021-06-19] MEDS: METOPROLOL ER 25 MG TABLET PO (08:16)
[2021-06-19] MEDS: buPROPion XL 150 MG TAB PO (08:16)
[2021-06-19] MEDS: diazePAM 5 MG TABLET PO ×2 (08:16→20:09)
--- NOTE | 2021-06-19 09:15 | SLP.IPNOTE ---
Attempted to see pt for swallow evaluation at 9:15. Pt was asleep and did not wake to verbal greetings.
--- NOTE | 2021-06-19 11:14 | CM.DANOTE ---
Addendum entered by Nathalia Otto R.N. 06/19/21 15:37: Patient's mother did confirm that patient is not vaccinated. Mely from [facility] called and stated that she can't accept patient due to his history of polysubstance abuse. Addendum entered by Nathalia Otto R.N. 06/19/21 15:17: This digital sales planner witnessed nurse, Audrey, asking patient permission to call his mother. Patient gave permission, he stated, she doesn't drive, probably won't come to see me. This digital sales planner called and spoke to his mother, Sofia. Introduced self and role over the phone. Mother is pleasant. She was glad to speak to someone, she didn't have any updates on how he was doing medically. Let her know that this digital sales planner can have nurse, Audrey, call her with medical updates. She is appreciative. Confirmed with patient' mother that he is independent at his baseline. He cooks his own meals. 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 At this time, he is on disability, and gets too much a month to qualify for Medicaid. Asked her if he has a primary care provider, and she stated, he did, but it was too hard for him to get to appointments, he doesn't drive. Patient's mother stated, I drive, but I don't do it well, I'm almost 77 years old. Patient lives with her. She indicated that early yesterday morning, patient had odd behaviors, he normally sleeps on the couch, and he was sitting on the floor banging on the wall. She indicated that he was pounding on the wall near the outside stair case, and upset the neighbor, since we live on the ground floor of an apartment, and she called the police. Patient's mother stated she was also about to call, since she couldn't get him off the floor. Patient's mother indicated that when the police arrived, they were able to get him up off of the floor back on the couch, but he continued to try to go back on the floor again. At this time, EMS arrived, and patient was brought to the hospital. Did not offer her any medical information, but let her know that the nurse could call her with medical updates, per patient's permission. Let her know that this mental health case manager's role is discharge planning. P: DCP to continue to follow. Will follow up with [facility] as well as [facility], but at this time, uncertain if he will be accepted. Nathalia Otto RN/Epidemiology Investigator Addendum entered by Nathalia Otto R.N. 06/19/21 14:40: P.T. notes in, recommending snf. Will have barriers of his mental health history and compliance with care. Patient also has [employer] Medicare, will need to send referrals to facilities that are in network. [facility] are in network. Called [facility] and spoke to Darlene in admissions. Mentioned referral, and that patient does have history of bipolar. Went ahead and faxed over referral to her, including face sheet, H&P, med sheets, and therapy notes. Called [facility] and left Alison a message about patient and his history as well, letting her know this patient is [employer] Medicare. Faxed referral over to her as well. It is uncertain at this time if patient would qualify for acute inpatient rehab, will discuss with the therapy team. Original Note: DCP: Case received, EMR reviewed and met with patient. Introduced self and role. Was able to get minimal information from patient, due to some confusion. Completed DCP assessment based upon information currently available. Patient is a 56 year old male who admitted yesterday morning to the care of the hospitalist team. PCP: Unknown at this time. Payer: confirmed: [employer]. Patient came to the hospital via ambulance secondary to some increased confusion at home. According to notes. patient's mother had woken up to a sound in the living room, and patient was sitting on the floor tapping on a bookshelf in an odd manner, and not answering her questions. He was sent to the ER via ambulance, and due to some agitation in the ER, was given Ativan. He was then lethargic, unable to participate in neuro exam. Notes indicate that MRI confirms restricted diffusion involving right frontal lobe, acute versus subacute infarct. Nursing notes from last pm indicated that patient was agitated with staff, and inappropriate at times, yelling out and disconnecting machines. This morning, patient is quiet. Met briefly with him. Asked him if he lives with his mother, and he stated yes. He did not answer any other questions, such as permission to contact her. He is having a procedure this am, was hungry, and wanted to eat, but NPO. He will be working with the therapy team. Patient does have history of bipolar disorder, prior stroke, HTN. It is unknown if he has a primary care provider. P: DCP to continue to follow. Will have to see how he does with the therapy team, and behaviors. Barrier is that patient could need rehab, but behaviors and mental health history will be a barrier. Nathalia Otto RN/Epidemiology Investigator Discharge Planning/Care Management CM Discharge Assessment Start: 06/19/21 11:11 Freq: Status: Active Protocol: Document 06/19/21 11:11 (Rec: 06/19/21 11:14 [id number]) Discharge Planning Assessment Assigned Contact Lens Blocker Nathalia Otto RN/Epidemiology Investigator Advance Directives? Yes Advance Directives on File No History Provided By Patient,Medical Record Prior Living Arrangements House Household Members family Type of transporation used prior to Relies on Others admit Independent with ADL's Yes Is patient alert and oriented? Yes Needs Assistance With Home Chores / Shopping Caregiver for Another No Comment N/A Barriers to Discharge Yes Comment If patient is in need of rehab , his behaviors and mental health history will be a barrier. Discharge Plan Home Transportation Arrangement Family or facility Referrals Initiated Other Additional Comment Will depend upon how patient does with therapy Whiteboard Updated in Patient Room with Yes name and ext. # of Contact Lens Blocker Review Status In Process Next Review Type Continued Stay Review
--- NOTE | 2021-06-19 11:36 | PT.IIE ---
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 1 step to enter Home Environment Standard Height Toilet,Tub/ Shower Doors Home Equipment Four Wheel Walker,Shower Seat with Backrest,Hand Held Shower Additional Social History Comment pt lives with his mother M2 PT-IP Current Condition Start: 06/19/21 13:20 Freq: NEEDED Status: Active Protocol: Document 06/19/21 11:36 AB (Rec: 06/19/21 13:37 AB [email or web address]) Physical Therapy Current Condition Current Condition Evaluation Date 06/19/21 Treatment Diagnosis R CVA; difficulty in walking Onset Date 06/18/21 M3 PT-IP Subjective Start: 06/19/21 13:20 Freq: NEEDED Status: Active Protocol: Document 06/19/21 11:36 AB (Rec: 06/19/21 13:37 AB [email or web address]) Subjective Physical Therapy Visit Type Type Initial Evaluation Visit Start Time 11:36 Visit Stop Time 11:55 Total Visit Minutes 19 Number of LITHOGRAPHIC PROOFER Visits 0 Physical Therapy Visit Comments Patient Comments agreeable to do PT Therapy Pain Assessment Pain Present Pain Present Pain Reported Location Neck Scale Used pain scale not stated Description Chronic M4 PT-IP Mobility and Gait Start: 06/19/21 13:20 Freq: NEEDED Status: Active Protocol: Document 06/19/21 11:36 AB (Rec: 06/19/21 13:37 AB [email or web address]) PT-Bed Mobility Assessment Supine to Sit Supine to Sit Standby Assistance,Head of Bed Elevated Sit to Supine Sit to Supine Standby Assistance PT-Transfer Assessment Sit to and From Stand Sit to and from Stand Contact Guard Assistance, Minimal Assistance,1 Person Assistance,Use of Upper Extremities Equipment Transfer Assistive Device None,Gait Belt Orthotic/Prosthetic Devices or Brace: No Comments Mobility Comments NAC informed PT that pt can easily get agitated. checked on pt and pt agreeable to do PT. completed supine to sit SBA. able to sit on EOB SBA. ambulated in room without AD min A and cues with unsteady gait and pt tends to run into things on his L side. L sided inattention. pt requested to go back to bed. completed sit to supine SBA. positioned pt in bed. call light and table placed within reach. Gait Assessment Gait Gait Assistance Required: Minimum Assistance,1 Person Assist Distance (Feet) 10 Able to Maintain Weight Bearing Status Yes During Gait Assistive Devices Assistive Device None,Gait Belt Orthotic/Prosthetic Devices or Brace: No Gait Deviations General Gait Pattern Antalgic,Decreased Stride Length,Decreased Feet Clearance Factors Limiting Gait Function Factors Limiting Gait Function Decreased Activity Tolerance, Decreased Strength,Poor Balance,Poor Safety Awareness PT-Balance Assessment Sitting Balance and Reactions Static Sitting Balance Ability Good Dynamic Sitting Balance Ability Good Standing Balance and Reactions Static Standing Balance Ability Fair Dynamic Standing Balance Ability Fair Device Used without AD M5 PT-IP Objective Assessments Start: 06/19/21 13:20 Freq: NEEDED Status: Active Protocol: Document 06/19/21 11:36 AB (Rec: 06/19/21 13:37 AB [email or web address]) Orientation Orientation/Cognition Level of Alertness Confusional State Orientation Name,Place Safety Awareness Decreased Safety Awareness Memory Description Short Term Impaired Gross Range of Motion Lower Extremity ROM Assessment Within Functional Limits Strength Lower Extremity Strength Hip 4-/5 Knee 4/5 Muscle Tone Muscle Tone WNL Yes M6 PT-IP Treatment Start: 06/19/21 13:20 Freq: NEEDED Status: Active Protocol: Document 06/19/21 11:36 AB (Rec: 06/19/21 13:37 AB [email or web address]) Physical Therapy Treatment Education Education Provided Safety M7 PT-IP Assessment and Plan Start: 06/19/21 13:20 Freq: NEEDED Status: Active Protocol: Document 06/19/21 11:36 AB (Rec: 06/19/21 13:37 AB [email or web address]) PT Summary Assessment and Plan Potential Rehabilitation Potential Fair Status of Condition at Evaluation Evolving Summary Impairments Pain,ROM,Strength,Balance, Coordination,Sensation,Tone, Cognition,Bed Mobility, Transfers,Gait,Activity Tolerance Assessment Summary pt with confusion but agreeable to do PT and able to follow instructions. requires min A with ambulation without AD with unsteady gait and L sided inattention and tends to run into things on L side. pt lives with his mother but unable to stated if his mother will be able to assist him or not. pt will require SNF rehab at this time. will continue to assess progress. Goals Bed Mobility Goal Independent Transfer Goal Independent,Front Wheeled Walker Gait Goal Independent,Front Wheel Walker Gait Distance 100 Other Goals improve ambulation without AD SBA 200 up/down 1 step mod I Days to Meet Goals 10 Frequency of Treatment Frequency Of Treatment Once a Day Treatment Plan Physical Therapy Treatment Plan Bed Mobility Training,Transfer Training,Gait Training, Therapeutic Exercise,Balance Retraining,Discharge Planning, Hot or Cold Pack,Neuromuscular Re-ed,Coordination Retraining ,Manual Therapy Precautions Other Precautions falls Recommendations To Nursing Amount of Assist Needed 1 Person Assist Discharge Recommendations PT Discharge Recommendations SNF Rehab Equipment Needed for Home Before FWW Discharge Transportation Needs at Discharge Private Vehicle,Wheelchair/ Cabulance
--- NOTE | 2021-06-19 11:56 | ST.IPIE ---
Visit Care Team Role Provider Type Viktoriya Trivedi DO Emergency Provider Physician Referring Provider Specialty: Emergency Medicine Address: [address] [place] [address], [id number] Email: [email or web address] Elvia Phipps MD Admit Provider Physician Attending Provider Specialty: Internal Medicine Address: [address] [place] [address], [id number] Email: [email or web address] Past Medical History (Last Reviewed 06/18/21 @ 17:35 by Elvia Phipps MD) Anxiety (Medical) Bipolar II disorder, mild, depressed, with anxious distress (Medical) Coronary artery disease (Medical) Discitis (Medical) H/O valvuloplasty (Medical) HTN (hypertension) (Medical) Narcissistic personality disorder (Medical) Paranoid personality (disorder) (Medical) S/P CABG x 4 (Medical) ST IP Initial Evaluation Report STACKING MACHINE OPERATOR Clinical Swallow Evaluation Start: 06/19/21 11:35 Freq: Status: Active Protocol: Document 06/19/21 11:35 SABA (Rec: 06/19/21 11:52 SABA [id number]) Clinical Swallow Evaluation Session Time Visit Start Time 09:10 Visit Stop Time 09:35 Total Visit Minutes [address] Elvia Phipps Reason for Referral CVA Setting Assessment Location Acute Care Visit Type Note Type Initial evaluation Next Note Type Next Note Type Treatment Note Patient Information Identification Type Name,ID Card History 48-year-old male with a history of bipolar disorder, prior stroke, hypertension, osteomyelitis of the lumbar spine, hyperlipidemia admitted to the hospital with a new CVA. Pt failed swallow screening with Nsg and was made NPO pending STACKING MACHINE OPERATOR swallow evaluation. Subjective Observations The pt was awake, lying in bed and watching TV upon STACKING MACHINE OPERATOR arrival. He expressed being hungry and willing to participate in swallow eval. He respositioned himself in bed independently. HOB was raised by STACKING MACHINE OPERATOR. The pt denied swallow difficulties prior to hospitalization. Stated that he eats pretty much everything but noted that d/t limited dentition, softer foods are easier. Reported by Patient Current Diet Nothing by mouth Baseline Feeding Method Independent in self-feeding Objective Assessment Mental Status Alert,Responsive,Cooperative Oral Integrity WFL Dentition Missing teeth,Decay Lip Function Within normal limits Observation of Lips at Rest Symmetrical Pucker Within normal limits Lip Retraction Reduced range of motion Alternating Pucker/Lip Retraction Reduced range of motion Tongue Function Mild impairment Observations of Tongue at Rest Within normal limits Tongue Protrusion Within normal limits Tongue Lateralization Reduced range of motion, Reduced strength Jaw Function Within normal limits Observations of Jaw at Rest Within normal limits Jaw Opening Within normal limits Jaw Closing Within normal limits Jaw Lateralization Within normal limits Hard/Soft Palate Function Within normal limits Observations of Hard/Soft Palate Within normal limits Nasality Within normal limits Phonation Within normal limits Respiratory Sufficiency Within normal limits Comment Pt has sparse anterior dentition only; molars are missing. Limited labial retraction appears more due to pt choice than muscular ability. Mild lingual and labial weakness was present. Food and Liquid Trials Position During Assessment Upright (90 degrees) Liquids Trialed Thin,[place] Solids Trialed Puree,Mechanical Soft Administration Type Cup single sip,Controlled cup sip,Straw,Needs some assistance Oral Impairment Mildly impaired Oral Phase Comments The pt expressed difficulty masticating diced peaches. Oral residue was noted after swallow and cleared with liquid wash. Pt consumed applesauce without difficulty. Pharyngeal Impairment Mildly impaired Pharyngeal Phase Comments Pt tolerated first 2 sips of thin liquid but had consistent coughing with all trials of thin liquid thereafter, including with head turn to left and right and chin tuck, both from cup and straw and with reduced bolus size. Throat clearing was noted after swallow of diced peaches . Suspect pharyngeal residue likely contributed by incomplete mastication. No overt s/sx of aspiration were observed with sips of NTL neither with head tucked or in neutral position. The pt stated, Yeah, that's a lot easier. STACKING MACHINE OPERATOR educated the pt on how liquids are thickened and that they may not taste or feel normal. Explained purpose of thickened liquids to protect the airway and reduce risk of coughing, aspiration and aspiration pna. Pt verbalized understanding and agreed to consume NTLs with plan and hope to return to thin liquids soon. Role of STACKING MACHINE OPERATOR and POC were discussed and the pt was agreeable to recommendations. Fatigue/Endurance Endurance WNL Comment The pt required assistance holding food containers with left hand. Able to self-feed with right/dominant hand. May require setup assistance. Strategies Attempted Chin tuck,Head rotation Response/Comments Continued coughing with thin liquids. Findings Swallowing Function Oropharyngeal phase dysphagia Severity of Swallow Impairment Mildly impaired Contributing Factors to Swallow Mastication inefficiency, Impairment Impaired airway protection, Excessive oral residue, Excessive pharyngeal residue Prognosis Good Based on Cognitive status,Age,Duration of symptoms/severity Comment Pt presents with mild left side weakness which likely contributes to swallow impairments. Impact on Safety and Functioning Risk for aspiration Recommendations Instrumental Assessment No Swallowing Treatment Yes Frequency Daily Duration over hospital stay Recommended Solids Dysphagia Mechanical Recommended Liquids [place] Safety Precautions/Swallowing Reduce distractions,Remain Recommendations upright (90 degrees) during all oral intake,Upright position at least 30 minutes after meals,Small bites and sips when eating,Slow rate; swallow between bites,Strict oral care after intake Medication Recommendations As Tolerated Discharge Recommendations Other (comment) Comments Require further assessment, likely home with assistance. Education Patient/Caregiver Education Described results of evaluation,Patient expressed understanding of evaluation, Patient expressed agreement with goals & treatment plans, Patient expressed understanding of safety precautions,Patient expressed understanding of feeding recommendations,Patient requires further education/ training Goals Short-term Goals 1. The pt will follow safe swallow strategies to reduce risk of aspiration and resume safe intake of thin liquids. Long-term Goals 1. The pt will tolerate least restrictive diet to meet his nutrition and hydration needs.
--- NOTE | 2021-06-19 14:43 | OT.IPNOTE ---
Pt asleep, able to wake pt up to try OT eval and pt states no. Pt states his right arm is bother him, nursing aware and has just been given meds earlier. To check on pt tomorrow for OT eval.
--- NOTE | 2021-06-19 18:14 | P.PN_ITS ---
Subjective Subjective Date Patient Seen: 06/19/21 Interval history: 56-year-old male admitted to the hospital with an acute versus subacute stroke. He is more awake and alert today. He has significant left upper extremity weakness. Patient is complaining of headache Exam Vital Signs (past 8 hours): - 06/19/21 11:22 06/19/21 12:00 06/19/21 17:46 Temperature 98.0 F 97.4 F L Pulse Rate 47 L 48 L 47 L Respiratory Rate 16 17 Blood Pressure 150/75 H 133/73 141/67 H Pulse Oximetry 98 100 Oxygen Delivery Method Room Air Oxygen Flow Rate 0 Narrative Exam Narrative: Disheveled ill-appearing male lying in bed Resp Other: Lungs clear to auscultate Cardio Other: Cardiac exam: Regular rate and rhythm normal S1-S2 GI Other: Abdomen soft nontender nondistended Neuro Other: Neuro exam: Left facial droop, left upper extremity weakness Extrem Other: Extremity no edema Objective Labs Result Diagrams: 06/18/21 06:30 06/18/21 17:58 Labs: Laboratory Results - last 24 hr 06/18/21 17:58 Sodium 146 H Potassium 3.8 Chloride 114 H Carbon Dioxide 25 BUN 14 Creatinine 0.79 Estimated GFR > 60.0 BUN/Creatinine Ratio 17.7 Glucose 83 Calcium 9.4 Total Bilirubin 0.7 AST 19 ALT 16 Alkaline Phosphatase 41 Total Protein 7.4 Albumin 4.5 Globulin 2.9 Albumin/Globulin Ratio 1.6 [facility] Medical History Anxiety Bipolar II disorder, mild, depressed, with anxious distress Coronary artery disease Discitis HTN (hypertension) 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) Surgical History H/O valvuloplasty S/P CABG x 4 Family History Grandfather Heart attack Family/Other Heart attack Social History household members: family Smoking Status: Current every day smoker alcohol intake: former Assessment & Plan Assessment & Plan narrative: 56-year-old male with a history of bipolar disorder, prior stroke, hypertension, osteomyelitis of the lumbar spine, hyperlipidemia admitted to the hospital with a new CVA * Patient with altered mental status, acute encephalopathy likely related to an acute stroke * MRI confirms restricted diffusion involving the right frontal lobe likely representing an acute or subacute infarct * Patient will be started on atorvastatin 80 mg daily, continue aspirin 81 mg daily, will obtain cardiac echo to rule out an embolic focus * Patient will be initiated on Lovenox 40 mg subQ daily * He will remain NPO, will obtain a speech consultation for swallow evaluation, diet advanced today * Will obtain PT OT consultation * Will continue serial neurological assessment once his mental status improves * Will start IV hydration with normal saline at 80 for cc an hourHypertension, will d/c IV fluids * Will continue his usual medications to include lisinopril and metoprolol * At the same time will not over treat excessive blood pressures to allow for permissive hypertension * Bipolar affective disorder * Will continue olanzapine, bupropionHistory of osteomyelitis with probable chronic back pain * Will continue baclofen, cyclobenzaprine, and gabapentin, and ValiumBilateral carotid occlusions, with vertebral artery stenosis, Need to determine if patient can return home or will he need Usp at discharge Time Spent With Patient Critical Care time: I spent a total of [] minutes of critical care time on this patient's care today; this time is exclusive of procedural time. Quality VTE Deep Vein Thrombosis/Pulmonary Embolism Present on Admission: No
[2021-06-19] MEDS: OLANZapine ODT 10 MG TAB 15 MG PO (20:09)
[2021-06-19] MEDS: ATORVASTATIN 20 MG TABLET 80 MG PO (20:10)
[2021-06-20] MEDS: ACETAMINOPHEN 325 MG TABLET 650 MG PO ×2 (03:19→11:07)
[2021-06-20] MEDS: SODIUM CHLORIDE 0.9% FLUSH 10 ML IV ×2 (03:22→09:03)
[2021-06-20 05:00] VITALS: BP 145/71; PULSE 54; RESP 16; TEMP 36.7; O2SAT 97
--- NOTE | 2021-06-20 08:11 | PC.NURSE ---
Lab notified RN that stool sample is appropriate for the culture but was formed and thus will not be able to run a CDIFF test, but if the patient experiences another liquid stool, will be able to send and test for CDIFF.
[2021-06-20 09:00] VITALS: BP 135/72; PULSE 50; RESP 15; TEMP 36.2; O2SAT 98
[2021-06-20 09:01] VITALS: BP 135/72; PULSE 50
[2021-06-20] MEDS: lisinopriL 20 MG TABLET PO (09:01)
[2021-06-20] MEDS: diazePAM 5 MG TABLET PO (09:03)
[2021-06-20] MEDS: BACLOFEN 10 MG TABLET 20 MG PO ×2 (09:03→13:20)
[2021-06-20] MEDS: ASPIRIN EC 81 MG TABLET PO (09:03)
[2021-06-20] MEDS: buPROPion XL 150 MG TAB PO (09:03)
[2021-06-20] MEDS: ENOXAPARIN 40 MG/0.4 ML SYRINGE SUBCUT (09:07)
[2021-06-20] MEDS: GABAPENTIN 400 MG CAPSULE PO ×2 (09:08→13:20)
--- NOTE | 2021-06-20 10:03 | PT.IPTN ---
Physical Therapy Treatment Note M2 PT-IP Current Condition Start: 06/19/21 13:20 Freq: NEEDED Status: Active Protocol: Document 06/19/21 11:36 AB (Rec: 06/19/21 13:37 AB [id number]) Physical Therapy Current Condition Current Condition Evaluation Date 06/19/21 Treatment Diagnosis R CVA; difficulty in walking Onset Date 06/18/21 M3 PT-IP Subjective Start: 06/19/21 13:20 Freq: NEEDED Status: Active Protocol: Document 06/20/21 12:05 KS (Rec: 06/20/21 12:13 KS [id number]) Subjective Physical Therapy Visit Type Type Treatment Note Visit Start Time 09:45 Visit Stop Time 10:03 Total Visit Minutes 18 Number of CUSTOMER SUPPLY COORDINATOR Visits 1 Physical Therapy Visit Comments Patient Comments agreeable to do PT M4 PT-IP Mobility and Gait Start: 06/19/21 13:20 Freq: NEEDED Status: Active Protocol: Document 06/20/21 12:05 KS (Rec: 06/20/21 12:13 KS [id number]) PT-Bed Mobility Assessment Supine to Sit Supine to Sit Standby Assistance,Head of Bed Elevated Sit to Supine Sit to Supine Standby Assistance Scooting Scooting to Edge of Bed Standby Assistance PT-Transfer Assessment Sit to and From Stand Sit to and from Stand Contact Guard Assistance,1 Person Assistance,Use of Upper Extremities Equipment Transfer Assistive Device None,Gait Belt Orthotic/Prosthetic Devices or Brace: No Transfers Transfer Destination Bed,Chair Transfer Technique Pt ambulated w/o AD Transfer Ability Level of Assist Contact Guard Assistance,1 Person Assistance,Use of Upper Extremities Comments Mobility Comments Pt in bed upon arrival and agreeable to ambulation around room. SBA for bed mobility, CGA for sit<>stand w/o AD. Pt ambulated ~50 ft around room w / CGA and unsteady gait w/ 1x lateral LOB requiring Min A to recover. Pt w/ decreased stride and foot clearance L>R and difficulty avoiding obstacles on L w/ decreased dorsiflexion. Pt then sat in chair for ~2 min and then requested to get back in bed. SBA for sit<>sup. Pt completed 1x10 bilateral ankle pumps, quad sets, heel slides, and sup abduction, and SLR increased difficulty L>R. Pt left in bed w/ all needs in reach and alarm on. Gait Assessment Gait Gait Assistance Required: Contact Guard Assist,Minimum Assistance,1 Person Assist Distance (Feet) 60 Able to Maintain Weight Bearing Status Yes During Gait Assistive Devices Assistive Device None,Gait Belt Orthotic/Prosthetic Devices or Brace: No Gait Deviations General Gait Pattern Antalgic,Decreased Stride Length,Decreased Feet Clearance Factors Limiting Gait Function Factors Limiting Gait Function Decreased Activity Tolerance, Decreased Strength,Poor Balance,Poor Safety Awareness Comments Gait Comments Please refer to mobility section for details. Stair Climbing Assessment Comments Stair Climbing Comments Not assessed. PT-Balance Assessment Sitting Balance and Reactions Static Sitting Balance Ability Good Dynamic Sitting Balance Ability Good Standing Balance and Reactions Static Standing Balance Ability Fair Dynamic Standing Balance Ability Fair Device Used without AD M5 PT-IP Objective Assessments Start: 06/19/21 13:20 Freq: NEEDED Status: Active Protocol: Document 06/19/21 11:36 AB (Rec: 06/19/21 13:37 AB [id number]) Orientation Orientation/Cognition Level of Alertness Confusional State Orientation Name,Place Safety Awareness Decreased Safety Awareness Memory Description Short Term Impaired Gross Range of Motion Lower Extremity ROM Assessment Within Functional Limits Strength Lower Extremity Strength Hip 4-/5 Knee 4/5 Muscle Tone Muscle Tone WNL Yes M6 PT-IP Treatment Start: 06/19/21 13:20 Freq: NEEDED Status: Active Protocol: Document 06/20/21 12:05 KS (Rec: 06/20/21 12:13 VA [id number]) Physical Therapy Treatment Exercises Exercises Ankle Pumps,Quad Sets,Heel Slides,Straight Leg Raises, Supine Hip Abduction Education Education Provided Safety M7 PT-IP Assessment and Plan Start: 06/19/21 13:20 Freq: NEEDED Status: Active Protocol: Document 06/20/21 12:05 KS (Rec: 06/20/21 12:13 VA [id number]) PT Summary Assessment and Plan Potential Rehabilitation Potential Fair Status of Condition at Evaluation Evolving Summary Impairments Pain,ROM,Strength,Balance, Coordination,Sensation,Tone, Cognition,Bed Mobility, Transfers,Gait,Activity Tolerance Assessment Summary Pt SBA for bed mobility, CGA for transfers and CGA to Min A for ambulation w/o AD. Pt usnteady w/ 1x lateral LOB, decreased stride and foot clearance L>R and poor safety awareness/obstacle avoidance increasing his risk for falls. Pt very pleasant and cooperative during treatment and able to complete exercises w/ verbal cues but does not agree to FWW use and has decreased use of LUE. He is unsafe to go home due to unsteadiness and will require SNF to improve balance, gait, and functional mobility independence. Goals Bed Mobility Goal Independent Transfer Goal Independent,Front Wheeled Walker Gait Goal Independent,Front Wheel Walker Gait Distance 100 Other Goals improve ambulation without AD SBA 200 up/down 1 step mod I Days to Meet Goals 10 Frequency of Treatment Frequency Of Treatment Once a Day Treatment Plan Physical Therapy Treatment Plan Bed Mobility Training,Transfer Training,Gait Training, Therapeutic Exercise,Balance Retraining,Discharge Planning, Hot or Cold Pack,Neuromuscular Re-ed,Coordination Retraining ,Manual Therapy Precautions Other Precautions falls Recommendations To Nursing Amount of Assist Needed 1 Person Assist Discharge Recommendations PT Discharge Recommendations SNF Rehab Equipment Needed for Home Before FWW Discharge Transportation Needs at Discharge Private Vehicle,Wheelchair/ Cabulance
--- NOTE | 2021-06-20 10:59 | PM.DS.1 ---
History of Present Illness History of Present Illness Chief complaint: Decreased LOC Narrative: 56-year-old male with a history of bipolar affective disorder, TIA, polysubstance abuse, hypertension, osteomyelitis of the lumbar spine, who presented to the ED with generalized body pain. The patient's mother woke up to go to the bathroom in her to sound in the living room found him sitting on the floor tapping on a bookshelf in an odd manner. He was not answering her, he was nonverbal in acting abnormally. He was in a last known to be normal the day before. The patient received Ativan in the emergency room for agitated behavior. By the time he arrived to the medical floor he was fairly sedated unable to communicate and unable to verbally respond. All history is obtained from the emergency department and prior medical records. Head CT obtained in the emergency department revealed right frontal encephalomalacia stable compared to prior exams. There were deep periventricular white matter chronic small ischemic changes. There was intracranial internal carotid artery stenosis. There was no acute disease identified. Patient had a CT angio of the head and neck. This revealed subtle hypodensities in the left internal capsule and right cerebellar hemispheres. He had a large chronic right frontal infarct which was stable. No intracranial hemorrhage. The patient also had high-grade stenosis involving the origins of the vertebral arteries bilaterally. Internal carotid arteries were occluded bilaterally as well. Head MRI: subtle region of increased restricted diffusion at the margins of the remote right frontal infarct suspicious for acute or subacute infarct. Stroke Neurology was consulted. They recommended aspirin and statin, no Plavix, and to continue an embolic workup. ? ? Discharge Providers Provider Date of admission: 06/18/21 09:46 Discharge Date: 06/20/21 Consults: 06/18/21 16:53 Consult to Discharge Planning Routine Comment: Consult to Occupational Therapy Evaluate & Treat Comment: Physician Instructions: Evaluate and treat Consult to Physical Therapy Evaluate & Treat Comment: Physician Instructions: Evaluate and Treat Consult to Speech Therapy Evaluate & Treat Comment: Physician Instructions: Evaluate and treat 06/18/21 16:58 Consult to Discharge Planning Routine Comment: Consult to Occupational Therapy Evaluate & Treat Comment: Physician Instructions: Evaluate and treat Consult to Physical Therapy Evaluate & Treat Comment: Physician Instructions: Evaluate and Treat Consult to Speech Therapy Evaluate & Treat Comment: acute stroke Physician Instructions: Evaluate and treat Discharge provider: Elvia Phipps MD Summary Hospital Course Discharge Diagnosis: 1. Acute frontal lobe CVA 2. Chronic systolic heart failure, ejection fraction 30 35% 3. Hypertension 4. Bipolar affective disorder Hospital Course: Patient was admitted to the hospital for evaluation of altered mental status. MRI confirmed a diffusion defect involving the right frontal lobe, this was strongly suggestive of a acute/subacute infarct. Patient was placed on an aspirin, he was placed on high-dose statin, echocardiogram was obtained which revealed the following:Mildly enlarged left ventricle with severely reduced systolic function (EF 25-30%). 2) The inferior wall and inferolateral wall are akinetic (and scarred). Rest of the LV is moderately hypokinetic. 3) Normal right ventricular size with mildly reduced function. 4) Annuloplasty ring is noted in mitral position. MIld regurgitation present. 5) Compared to the Echo done 06/24/2020, LVEF is slightly lower on this study. Patient was seen by physical therapy and occupational therapy. Although he was somewhat unsteady he was deemed appropriate for discharge home with a front wheel walker and assistance. In addition the patient was placed on a mechanical soft nectar thick diet. He tolerated all of the above without difficulty. Patient was deemed appropriate for discharge and arrangements were made for him to discharge home. Status at Discharge Cognitive/behavioral status at discharge: oriented Functional status at discharge: uses cane/walker Overall status at discharge: patient is progressing back to baseline Exam Vital Signs (past 8 hours): - 06/20/21 05:00 06/20/21 09:00 06/20/21 09:01 Temperature 98.0 F 97.1 F L Pulse Rate 54 L 50 L 50 L Respiratory Rate 16 15 Blood Pressure 145/71 H 135/72 135/72 Pulse Oximetry 97 98 Oxygen Delivery Method Room Air Oxygen Flow Rate 0 Narrative Exam Narrative: Pleasant male resting comfortably in no obvious distress [facility] Other: Extraocular muscles are intact, no facial droop, Resp Other: Lungs are clear to auscultation Cardio Other: Cardiac exam: Regular rate and rhythm normal S1-S2 GI Other: Abdomen soft and nontender Neuro Other: Cranial nerves are intact, he has weakness of the left upper extremity, sensations grossly intact, reflexes are equal, gait is not assessed Extrem Other: No edema Psych Other: Patient is calm and cooperative Objective Labs Result Diagrams: 06/18/21 06:30 06/18/21 17:58 [facility] Medical History Anxiety Bipolar II disorder, mild, depressed, with anxious distress Coronary artery disease Discitis HTN (hypertension) 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 Chronic systolic heart failure, ejection fraction 30 35% 3. Hypertension 4. Bipolar affective disorder Plan of Treatment: Discharge home Follow-up with PCP in 1 week Discharge Plan Discharge Plan Patient Disposition: Home Discharge orders & Medications Prescriptions: New aspirin 81 mg Tablet,Delayed Release (Dr/Ec) 81 mg PO DAILY Qty: 30 0RF Continued cyclobenzaprine 5 mg tablet 5 mg PO TID PRN (Reason: muscle spasm) Qty: 20 0RF Rx Instructions: prescribed 06/16/21 x 7 days atorvastatin 80 mg tablet 80 mg PO BEDTIME 0RF metoprolol succinate 25 mg capsule,sprinkle,ER 24hr 25 mg PO DAILY 0RF olanzapine 5 mg tablet 15 mg PO BEDTIME Qty: 90 2RF Rx Instructions: Available without authorization. per Cover my meds bupropion HCl 150 mg tablet extended release 24 hr 450 mg PO QAM Qty: 90 2RF Rx Instructions: take 3 tablet every morning diazepam 5 mg tablet 5 mg PO BID Qty: 60 0RF baclofen 20 mg tablet 20 mg PO TID Qty: 20 0RF Rx Instructions: prescribed 06/15 x 6 days hydroxyzine HCl 25 mg tablet 25 mg PO TID 0RF gabapentin 100 mg capsule 400 mg PO TID 0RF lisinopril 20 mg tablet 20 mg PO DAILY 0RF Follow up/Referrals: Miscellaneous,DoctorMD [Non-Staff] - Discharge Health Status Multidrug resistant organism: No MDRO Diet/Activity/Treatments Diet: Low-sodium and Low-cholesterol Diet comment: mechanical soft/ nectar thick Quality VTE Deep Vein Thrombosis/Pulmonary Embolism Present on Admission: No
--- NOTE | 2021-06-20 11:04 | ST.IPCSEOM ---
Visit Care Team Role Provider Type Viktoriya Trivedi DO Emergency Provider Physician Referring Provider Specialty: Emergency Medicine Address: [address] [place] [address], [id number] Email: [email or web address] Devon Rodríguez MD Attending Provider Physician Specialty: Family Practice Address: [facility] [place], [address] Email: [email or web address] Elvia Phipps MD Admit Provider Physician Other Providers Specialty: Internal Medicine Address: [address] [place] [address], [id number] Email: [email or web address] Past Medical History (Last Reviewed 06/18/21 @ 17:35 by Elvia Phipps MD) Anxiety (Medical) Bipolar II disorder, mild, depressed, with anxious distress (Medical) Coronary artery disease (Medical) Discitis (Medical) H/O valvuloplasty (Medical) HTN (hypertension) (Medical) Narcissistic personality disorder (Medical) Paranoid personality (disorder) (Medical) S/P CABG x 4 (Medical) Speech-Language Pathology Swallow Evaluation CONTINUING EDUCATION INSTRUCTOR Clinical Swallow Evaluation Start: 06/19/21 11:35 Freq: Status: Active Protocol: Document 06/20/21 10:38 LNK (Rec: 06/20/21 11:04 LNK [id number]) Clinical Swallow Evaluation Session Time Visit Start Time 09:00 Visit Stop Time 09:30 Total Visit Minutes [address] Elvia Phipps Reason for Referral CVA Setting Assessment Location Acute Care Visit Type Note Type Re-evaluation Next Note Type Next Note Type Treatment Note Patient Information Identification Type Name,ID Card History 48-year-old male with a history of bipolar disorder, prior stroke, hypertension, osteomyelitis of the lumbar spine, hyperlipidemia admitted to the hospital with a new CVA. Pt failed swallow screening with Nsg and was made NPO pending CONTINUING EDUCATION INSTRUCTOR swallow evaluation. Subjective Observations The pt was awake, lying in bed and watching TV upon CONTINUING EDUCATION INSTRUCTOR arrival. He was willing to participate in re-evaluation of swallow to determine progress and safety for diet upgrade. He repositioned himself in bed independently. HOB was raised by CONTINUING EDUCATION INSTRUCTOR. The pt reported that he has been drinking NTL since evalution yesterday. Reported by Patient Current Diet Dysphagia mechanical,[place] thick liquids Baseline Feeding Method Independent in self-feeding Objective Assessment Mental Status Alert,Responsive,Cooperative Oral Integrity WFL Dentition Missing teeth,Decay Lip Function Within normal limits Observation of Lips at Rest Symmetrical Pucker Within normal limits Lip Retraction Reduced range of motion Alternating Pucker/Lip Retraction Reduced range of motion Tongue Function Mild impairment Observations of Tongue at Rest Within normal limits Tongue Protrusion Within normal limits Tongue Lateralization Reduced range of motion Jaw Function Within normal limits Observations of Hard/Soft Palate Within normal limits Nasality Within normal limits Phonation Within normal limits Comment Missing dentition with anterior teeth prresent. Mild labial and lingual wekness noted Food and Liquid Trials Position During Assessment Upright (90 degrees) Liquids Trialed Ice chips,Thin Solids Trialed Dysphagia Advanced,Mechanical Soft Administration Type Cup single sip,Controlled cup sip,Straw,Needs some assistance Oral Impairment Mildly impaired Oral Phase Comments Pt was able to masticate a soft tuna sandwich demonstrating good bilateral tongue sweeps with no oral residue after swallow. Pharyngeal Impairment Within functional limits Pharyngeal Phase Comments Pt tolerted ice chips and thin liquid single sips/swallows without s/sx aspiration. Pt was unable to safely swallow using a straw. Pt can safely tolerate thin liquids if he swallows small sips one at a time. No straws. Fatigue/Endurance Endurance WNL Comment Pt was able to self-feed/drink using right hand. May require setup assistance. Response/Comments Coughing observed when using straw Findings Swallowing Function Oropharyngeal phase dysphagia Severity of Swallow Impairment Mildly impaired Contributing Factors to Swallow Mastication inefficiency, Impairment Impaired airway protection Prognosis Good Based on Cognitive status,Age,Duration of symptoms/severity Comment Overall swallow improvement noted. Will advance texture and liquids Impact on Safety and Functioning Risk for aspiration Recommendations Instrumental Assessment No Swallowing Treatment Yes Frequency Daily Duration over hospital stay Recommended Solids Mechanical Soft Recommended Liquids Thin Safety Precautions/Swallowing Reduce distractions,Remain Recommendations upright (90 degrees) during all oral intake,Upright position at least 30 minutes after meals,Small bites and sips when eating,Slow rate; swallow between bites,Strict oral care after intake Medication Recommendations As Tolerated Education Patient/Caregiver Education Described results of evaluation,Patient expressed understanding of evaluation, Patient expressed agreement with goals & treatment plans, Patient expressed understanding of safety precautions,Patient expressed understanding of feeding recommendations,Patient requires further education/ training Goals Short-term Goals 1. The pt will follow safe swallow strategies to reduce risk of aspiration. Long-term Goals 1. The pt will tolerate least restrictive diet to meet his nutrition and hydration needs.
[2021-06-20] MEDS: KETOROLAC 30 MG/ML VIAL 15 MG IV (11:53)
--- NOTE | 2021-06-20 12:09 | CM.DPC ---
DCP Cont: Discussed patient during team rounds. P.T stating that patient should be able to go home, he does have some weakness on one side. Dr. Phipps was going to call patient's mother, Sofia, and give her update on his medical condition. Dr. Phipps has placed discharge orders for patient. Audrey has spoken to patient's mother, as well. He will need a taxi home, and according to Audrey, his mom may be able to pay for it. Aurdey was going to see if patient's mother wanted to order the taxi since she would be paying for it. She will update this case manage if there is a problem with transportation. P: Patient is to be discharged home today. He will need taxi, secondary to patient's mother not driving. Nathalia Otto RN/Snailer
[2021-06-20 13:00] VITALS: BP 103/61; PULSE 57; RESP 18; TEMP 36.2; O2SAT 98
--- NOTE | 2021-06-20 15:23 | OT.IPNOTE ---
Pt discharged before OT able to see the pt for OT eval.
--- NOTE | 2021-06-20 15:33 | PC.NURSE ---
Pt is A&OX2-3, forgetful of exact date. VSS, on RA slightly bradycardic. Metoprolol po held this a.m. for HR 50's. He denies SOB, dizziness, CP, or palpitations. He continues to c/o the back of his head hurting where he reports he hit the ground when he fell. He is evaluated by ST again today and his diet is advanced to regular texture/thin liquids. No s/sx of aspiration. He denies altered sensation, PERRLA, EOMI, no facial droop noted and his speech is clear. He still remains with L sided weakness. He is evaluated this a.m. by the hospitalist and is medically cleared for discharge. He expresses that he would like to discharge home today. He is encouraged to follow up with PCP for recommendations and further tests. Notified his mother and patient of plan of care and recommendations. Both patient and his mother verbalize understanding of plan as well as discharge medication and complying with medication. [employer] notified of need for transport home, and pt escorted to taxi via w/chair, SBA. Mother waiting at home will assist patient.
== END 2021-06-20 13:26 | disposition home or self-care (01) | DRG 65 ==
LOC: ED 09:42 → AC 09:47
PROVIDERS: Emergency Medicine; Admitting Provider Internal Medicine; Emergency Provider Emergency Medicine; Referring Provider Emergency Medicine; Visit Provider Family Medicine
DX: I63.9 Cerebral infarction, unspecified (principal); I50.22 Chronic systolic (congestive) heart failure; R41.4 Neurologic neglect syndrome; G93.49 Other encephalopathy; I11.0 Hypertensive heart disease with heart failure; R29.810 Facial weakness; G83.24 Monoplegia of upper limb affecting left nondominant side; E78.5 Hyperlipidemia, unspecified; F31.9 Bipolar disorder, unspecified; F17.210 Nicotine dependence, cigarettes, uncomplicated; I25.10 Atherosclerotic heart disease of native coronary artery without angina pectoris; R29.705 NIHSS score 5; R29.726 NIHSS score 26; Z95.1 Presence of aortocoronary bypass graft; Z20.822 Contact with and (suspected) exposure to COVID-19
CPT/HCPCS: 36415; 70450; 70496; 70498; 70551; 80053; 80305; 80320; 80329; 81003; 82550; 82962; 83605; 84145; 84146; 84484; 85025; 85610; 87635; 92610; 93005; 93306; 96361; 96374; 96375; 96376; 97110; 97162; 99285; 99406; C9803; G0480; J1200; J1630; J1650; J1885; J2060; J7050; Q9957

== ENCOUNTER 2021-06-28 10:01 | Emergency (ER) | payer OTHER, SELFPAY ==
[2021-06-18 10:03] VITALS: BMI 21.2
[2021-06-28 10:06] VITALS: BP 137/65; PULSE 58; RESP 18; TEMP 36.6; O2SAT 99
--- NOTE | 2021-06-28 10:17 | ED.FALL ---
HPI - Fall General Chief Complaint: Fall Stated Complaint: fall, hit head, headache, on blood thinners Time Seen by Provider: 06/28/21 10:16 Source: patient Mode of arrival: Wheelchair History of Present Illness HPI Narrative: Patient is a 56-year-old male with history of bipolar, TIA, substance abuse who was admitted recently for CVA on June 18 he was discharged home on June 20. He was giving wheeled walker for assisted device. Today he was found on hospital grounds is after he had fallen. He has scraped his hands and knees. He was sent to the ER for further evaluation. Patient says that he has been falling a lot he is not using his walker he does not remember exactly what happened today. His right knee does hurt a little bit more than his left knee. He denies any chest pain or palpitations. He denies any recent alcohol use or any other substance. Related Data Home Medications Medication Instructions Recorded Confirmed lisinopril 20 mg tablet 20 mg PO DAILY 07/15/18 06/19/21 atorvastatin 80 mg tablet 80 mg PO BEDTIME 01/23/20 06/18/21 metoprolol succinate 25 mg capsule 25 mg PO DAILY 01/23/20 06/19/21 sprinkle, ext. release 24 hr hydroxyzine HCl 25 mg tablet 25 mg PO TID 06/18/21 06/18/21 Previous Rx's Medication Instructions Recorded bupropion HCl 150 mg 24 hr tablet, 450 mg PO QAM #90 tab 05/31/21 extended release cyclobenzaprine 5 mg tablet 5 mg PO TID PRN #20 tab 06/12/21 baclofen 20 mg tablet 20 mg PO TID #20 tab 06/13/21 aspirin 81 mg tablet,delayed 81 mg PO DAILY #30 tab 06/20/21 release diazepam 5 mg tablet 5 mg PO BID #60 tab 06/26/21 gabapentin 400 mg capsule 400 mg PO TID #90 cap 06/26/21 olanzapine 20 mg tablet 20 mg PO BEDTIME #30 tab 06/26/21 Allergies Allergy/AdvReac Type Severity Reaction Status Date / Time No Known Drug Allergies Allergy Verified 06/28/21 10:40 Review of Systems Constitutional Constitutional: Denies fever(s), Reports frequent falls and Denies headache(s) ENT Ears, Nose, Mouth, and Throat: Denies headache(s) Cardiovascular Cardiovascular: Denies chest pain, Denies chest pain at rest and Denies irregular heart rhythm Respiratory Respiratory: Denies cough Musculoskeletal Musculoskeletal: Reports as per HPI Integumentary/Breasts Skin/Breast: Reports as per HPI Neurologic Neurologic: Reports as per HPI, Reports frequent falls and Denies headache(s) 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) Surgical History H/O valvuloplasty S/P CABG x 4 Family History Grandfather Heart attack Family/Other Heart attack Social History household members: family Smoking Status: Current every day smoker alcohol intake: former Smoking Status: Current every day smoker tobacco type: cigarettes alcohol intake frequency: other Substance Use Type: does not use Exam Initial Vital Signs Initial Vital Signs: Vital Signs Temperature 97.8 F 06/28/21 10:06 Pulse Rate 58 L 06/28/21 10:06 Respiratory Rate 18 06/28/21 10:06 Blood Pressure 137/65 06/28/21 10:06 Pulse Oximetry 99 06/28/21 10:06 GENERAL: Alert 56-year-old male appears older than stated age HEENT: Head atraumatic,EOMI, pupils reactive, face symmetric, moist mucous membranes NECK supple CARDIOVASCULAR: Regular rate and rhythm without murmurs, rubs or gallops. RESPIRATORY: Breath sounds equal bilaterally, no wheezes rales or rhonchi. ABDOMEN: Soft, nontender. Normoactive bowel sounds all 4 quadrants. No guarding or rebound. EXTREMITIES: Normal range of motion, no clubbing or edema. Neurovascularly intact NEUROLOGICAL: Alert and oriented x4.Normal gait and speech. Left arm weakness it does drift. SKIN: Warm, dry, no laceration, no petechiae, no rashes or lesions. Course Orders Ordered: ED Orders 06/28/21 10:10 Consult to MEDICAL PSYCHOTHERAPIST - Insole Tape Stitcher [place] Stat 06/28/21 10:21 EKG-12 Lead Stat 06/28/21 10:40 CT head/brain wo con Stat 06/28/21 11:56 Complete Blood Count AUTO DIFF Stat Comprehensive Metabolic Panel Stat ETOH [Ethanol (ETOH)] Stat PTT [Partial Thromboplastin Time] Stat Prothrombin Time INR Stat Troponin & CK Cardiac Panel Stat 06/28/21 12:45 Consult to Physical Therapy Evaluate & Treat 06/28/21 13:17 Urine Drug Screen, Rapid Stat Discontinued Medications Acetaminophen (Acetaminophen 325 Mg Tablet) 975 mg PO NOW ONE Stop: 06/28/21 16:16 Last Admin: 06/28/21 17:08 Dose: Not Given Documented by: GINGER Lorazepam (Lorazepam 2 Mg/Ml Inj) 1 mg IM NOW ONE Stop: 06/28/21 10:44 Last Admin: 06/28/21 10:52 Dose: 1 mg Documented by: CONCETTA Vital Signs Vital signs: Vital Signs - 8 hr 06/28/21 11:34 06/28/21 12:21 06/28/21 12:33 Pulse Rate 59 L 54 L Pulse Rate [Orthostatic Lying] 57 L Pulse Rate [Orthostatic Sitting] 62 Pulse Rate [Orthostatic Standing] 67 Respiratory Rate 13 22 Blood Pressure 142/77 H Blood Pressure [Orthostatic Lying] 142/77 H Blood Pressure [Orthostatic Sitting] 144/83 H Blood Pressure [Orthostatic Standing] 147/74 H Pulse Oximetry 99 99 06/28/21 13:30 Pulse Rate 65 Pulse Rate [Orthostatic Lying] Pulse Rate [Orthostatic Sitting] Pulse Rate [Orthostatic Standing] Respiratory Rate 22 Blood Pressure 131/71 Blood Pressure [Orthostatic Lying] Blood Pressure [Orthostatic Sitting] Blood Pressure [Orthostatic Standing] Pulse Oximetry MDM - Fall Lab Data Result diagrams: 06/28/21 11:56 06/28/21 11:56 Labs: Lab Results 06/28/21 06/28/21 06/28/21 Range/Units 11:56 11:56 11:56 WBC 9.6 (4.5-11.0) X10^3/uL RBC 4.59 (4.5-5.9) X10^6/uL Hgb 13.9 (13.5-17.5) g/dL Hct 40.8 L (41-53) % MCV 89.0 (80-100) fL MCH 30.3 (26-34) PG MCHC 34.0 (30-36) % RDW 13.6 (11.6-14.8) % Plt Count 209 (150-400) X10^3/uL Neut % (Auto) 79.2 H (50-75) % Lymph % (Auto) 14.0 L (25-40) % Fountain % (Auto) 4.3 (3-14) % Eos % (Auto) 2.1 (2-4) % Baso % (Auto) 0.4 (0-2) % Lymph # (Auto) Not Reportable Fountain # (Auto) Not Reportable Baso # (Auto) Not Reportable PT 12.1 (10.1-12.7) SECONDS INR 1.1 (0.9-1.3) APTT 36 D (26.4-36.2) SECONDS Sodium 139 (137-145) mmol/L Potassium 4.3 (3.4-5.1) mmol/L Chloride 106 (98-107) mmol/L Carbon Dioxide 24 (22-32) mmol/L BUN 19 (9-20) mg/dL Creatinine 0.94 (0.66-1.25) mg/dL Estimated GFR > 60.0 (>60) mL/min BUN/Creatinine Ratio 20.2 (6-22) Glucose 71 (70-100) mg/dL Calcium 9.5 (8.4-10.2) mg/dL Total Bilirubin 0.9 (0.2-1.3) mg/dL AST 30 (17-59) IU/L ALT 28 (<50) IU/L Alkaline Phosphatase 44 (38-126) U/L Total Creatine Kinase 118 (55-170) U/L CK-MB (CK-2) 1.76 (<2.37) ng/mL CK-MB (CK-2) Rel Index 1.5 (1.5-5.0) % Troponin I < 0.012 (0.01-0.034) ng/mL Total Protein 7.8 (6.3-8.2) g/dL Albumin 4.9 (3.5-5.0) g/dL Globulin 2.9 (1.7-4.1) g/dL Albumin/Globulin Ratio 1.7 (1.0-2.8) U Opiates 300ng/mL cut (Negative) Ur Oxycodone Screen (Negative) Urine Methadone Screen (Negative) Ur Barbiturates Screen (Negative) U Tricyclic Antidepress (Negative) Ur Phencyclidine Scrn (Negative) Ur Amphetamines Screen (Negative) U Methamphetamines Scrn (Negative) Ur MDMA Scrn (Ecstasy) (Negative) U Benzodiazepines Scrn (Negative) Urine Cocaine Screen (Negative) U Marijuana (THC) Screen (Negative) Ethyl Alcohol < 10 ( - 10) mg/dL 06/28/21 Range/Units 13:17 WBC (4.5-11.0) X10^3/uL RBC (4.5-5.9) X10^6/uL Hgb (13.5-17.5) g/dL Hct (41-53) % MCV (80-100) fL MCH (26-34) PG MCHC (30-36) % RDW (11.6-14.8) % Plt Count (150-400) X10^3/uL Neut % (Auto) (50-75) % Lymph % (Auto) (25-40) % Fountain % (Auto) (3-14) % Eos % (Auto) (2-4) % Baso % (Auto) (0-2) % Lymph # (Auto) Fountain # (Auto) Baso # (Auto) PT (10.1-12.7) SECONDS INR (0.9-1.3) APTT (26.4-36.2) SECONDS Sodium (137-145) mmol/L Potassium (3.4-5.1) mmol/L Chloride (98-107) mmol/L Carbon Dioxide (22-32) mmol/L BUN (9-20) mg/dL Creatinine (0.66-1.25) mg/dL Estimated GFR (>60) mL/min BUN/Creatinine Ratio (6-22) Glucose (70-100) mg/dL Calcium (8.4-10.2) mg/dL Total Bilirubin (0.2-1.3) mg/dL AST (17-59) IU/L ALT (<50) IU/L Alkaline Phosphatase (38-126) U/L Total Creatine Kinase (55-170) U/L CK-MB (CK-2) (<2.37) ng/mL CK-MB (CK-2) Rel Index (1.5-5.0) % Troponin I (0.01-0.034) ng/mL Total Protein (6.3-8.2) g/dL Albumin (3.5-5.0) g/dL Globulin (1.7-4.1) g/dL Albumin/Globulin Ratio (1.0-2.8) U Opiates 300ng/mL cut Negative (Negative) Ur Oxycodone Screen Negative (Negative) Urine Methadone Screen Negative (Negative) Ur Barbiturates Screen Negative (Negative) U Tricyclic Antidepress Negative (Negative) Ur Phencyclidine Scrn Negative (Negative) Ur Amphetamines Screen Negative (Negative) U Methamphetamines Scrn Negative (Negative) Ur MDMA Scrn (Ecstasy) Negative (Negative) U Benzodiazepines Scrn Positive H (Negative) Urine Cocaine Screen Negative (Negative) U Marijuana (THC) Screen Positive H (Negative) Ethyl Alcohol ( - 10) mg/dL Urine Dip Bedside Urine Glucose Negative Bedside Urine Bilirubin - Negative Bedside Urine Ketone - Negative Urine Specific [place] 1.015 Bedside Urine Occult Blood - Negative Bedside Urine pH 6.0 Bedside Urine Protein - Negative Bedside Urine Urobilinogen - Negative Bedside Urine Nitrite - Negative Bedside Urine Leukocytes - Negative Esterase Imaging Data CT scan - head: Radiologist's Impression: PROCEDURE:? CT HEAD/BRAIN WO CON ? INDICATIONS:? falls w/ head trauma, ASA 81 mg daily ? TECHNIQUE:? Noncontrast 4.5 mm thick angled axial sections acquired from the foramen magnum to the vertex, with coronal and sagittal reformats.? For radiation dose reduction, the following was used:? automated exposure control, adjustment of mA and/or kV according to patient size.? ? COMPARISON:? [facility], , MR HEAD/BRAIN WO CON, 06/18/2021, 7:57. ? FINDINGS:? Encephalomalacia and gliosis in the right frontal lobe secondary to remote infarct as seen on prior studies.? No mass effect or midline shift.? No acute intracranial hemorrhage.? No gross orbital abnormality.? Clear paranasal sinuses and mastoid air cells. ? IMPRESSION:? No acute intracranial abnormality. ? ? Dictated by: Manjinder Ward M.D. on 06/28/2021 at 11:43 ? ? ECG Data Interpretation: Rhythm rate 55 ND interval 158 QRS [address] changes T-wave inversion noted in lead 3 only similar to prior MDM Narrative Medical decision making narrative: Patient has multiple abrasion on his his hand but no gross bony deformities. Workup is negative. He is evaluated by physical therapy apparently was not sent home with a walker he is given 1 in the emergency department is which he uses with 1 hand. He is able to walk without any difficulty. He is confused. Has been discussed with his mother that he has been confused since his stroke. He actually is found urinating in the emergency department behind a door. He is able to hold conversation he is steady on his feet with a walker. This time there is no need for admission is. We have called patient's friend to come pick him up. Discharge Plan Departure Patient Disposition: Home Clinical Impression: Fall Instructions: How to Prevent Falls Activity Restrictions/Additional Instructions: *You have been diagnosed with fall *What to do: Use your walker at all times *Continue to take medications as directed *Follow up with your primary care provider in 2-3 days or call [phone] *Return to ER if you should have increased falls, weakness or any new, worsening or concerning symptoms Prescriptions: No Action cyclobenzaprine 5 mg tablet 5 mg PO TID PRN (Reason: muscle spasm) Qty: 20 0RF Rx Instructions: prescribed 06/16/21 x 7 days atorvastatin 80 mg tablet 80 mg PO BEDTIME 0RF metoprolol succinate 25 mg capsule,madayinkle,ER 24hr 25 mg PO DAILY 0RF diazepam 5 mg tablet 5 mg PO BID Qty: 60 0RF gabapentin 400 mg capsule 400 mg PO TID Qty: 90 3RF olanzapine 20 mg tablet 20 mg PO BEDTIME Qty: 30 3RF bupropion HCl 150 mg tablet extended release 24 hr 450 mg PO QAM Qty: 90 2RF Rx Instructions: take 3 tablet every morning baclofen 20 mg tablet 20 mg PO TID Qty: 20 0RF Rx Instructions: prescribed 06/15 x 6 days hydroxyzine HCl 25 mg tablet 25 mg PO TID 0RF aspirin 81 mg Tablet,Delayed Release (Dr/Ec) 81 mg PO DAILY Qty: 30 0RF lisinopril 20 mg tablet 20 mg PO DAILY 0RF
--- NOTE | 2021-06-28 10:40 | DI.CT.S_ITS ---
PROCEDURE: CT HEAD/BRAIN WO CON INDICATIONS: falls w/ head trauma, ASA 81 mg daily TECHNIQUE: Noncontrast 4.5 mm thick angled axial sections acquired from the foramen magnum to the vertex, with coronal and sagittal reformats. For radiation dose reduction, the following was used: automated exposure control, adjustment of mA and/or kV according to patient size. COMPARISON: [facility], MR, MR HEAD/BRAIN WO CON, 06/18/2021, 7:57. FINDINGS: Encephalomalacia and gliosis in the right frontal lobe secondary to remote infarct as seen on prior studies. No mass effect or midline shift. No acute intracranial hemorrhage. No gross orbital abnormality. Clear paranasal sinuses and mastoid air cells. IMPRESSION: No acute intracranial abnormality. Dictated by: Manjinder Ward M.D. on 06/28/2021 at 11:43 Approved by: Manjinder Ward M.D. on 06/28/2021 at 11:46
[2021-06-28] MEDS: LORazepam 2 MG/ML INJ 1 MG IM (10:52)
[2021-06-28 11:34] VITALS: PULSE 59; RESP 13; O2SAT 99
[2021-06-28 12:21] VITALS: BP 142/77; PULSE 54; RESP 22; O2SAT 99
[2021-06-28 12:27] LABS: Hematocrit 40.8 % (41-53); Hemoglobin 13.9 g/dL (13.5-17.5); Mean Corpuscular Hemoglobin 30.3 PG (26-34); Red Blood Cell Count 4.59 X10^6/uL (4.5-5.9); White Blood Cell Count 9.6 X10^3/uL (4.5-11.0)
[2021-06-28 12:28] LABS: Add Manual Diff / Slide Review NO; Basophils Percent Auto 0.4 % (0-2); Eosinophils Percent Auto 2.1 % (2-4); Monocytes Percent Auto 4.3 % (3-14); Neutrophils Percent Auto 79.2 % (50-75); Platelet Count 209 X10^3/uL (150-400); Red Cell Distribution Width 13.6 % (11.6-14.8)
[2021-06-28 12:33] VITALS: BP 142/77; BP 144/83; BP 147/74; PULSE 57; PULSE 62; PULSE 67
[2021-06-28 12:34] LABS: INR 1.1 (0.9-1.3); Prothrombin Time 12.1 SECONDS (10.1-12.7)
[2021-06-28 12:37] LABS: PTT Partial Thromboplastin Tim 36 SECONDS (26.4-36.2)
--- NOTE | 2021-06-28 13:13 | CM.SWNOTE ---
PATIENT SERVICE REP/DCP Note PATIENT SERVICE REP receives consult and enters room to meet with patient. Patient is 56 y/o male who presents to the ED after falling on hospital grounds. Patient initially went to the [facility] and was sent to ED. Patient recently d/c'd from acute care on 06/20/21 after presenting with CVA on 06/18/21. Patient has hx of Bipolar 2 Disorder, previous TIA, Hypertension, Osteomyelitis of lumbar spine, & hyperlipidemia. Per patient at triage, patient has fallen 5x in the last week. Patient sees Psychiatrist Dr. Delcid for ongoing medication prescriptions. Patient endorses he takes medications regularly. Patient presents as calm, A/Ox4. Patient endorses his pain due to current headache. Patient endorses his concern for his recent falls and states that he has been unsteady on his feet. PATIENT SERVICE REP asks about FWW and patient states he is borrowing his mother's FWW. Per EMR patient has upcoming FMA appt with Dr. Menendez on 07/19/21 and a f/u appt with Psychiatrist Dr. Delcid on 07/31/21. Patient endorses he uses THC/CBD to help him calm down and sleep. Patient denies driving and denies using other substances. Patient endorses he feels safe discharging to home if that is the plan. Plan: PATIENT SERVICE REP to f/u with POC pending further medical evaluation and possible PT eval. ROLF Flores
[2021-06-28 13:30] VITALS: BP 131/71; PULSE 65; RESP 22
[2021-06-28 13:31] LABS: UR Morphine/Opiate cutoff 300 Negative (Negative); Ur Creatinine Normal (Normal); Ur Specific Gravity Normal (Normal); Urine Amphetamines Negative (Negative); Urine Barbiturates Negative (Negative); Urine Benzodiazepines Positive (Negative); Urine Cocaine Negative (Negative); Urine MDMA Negative (Negative); Urine Methadone Negative (Negative); Urine Methamphetamines Negative (Negative); Urine Oxycodone Negative (Negative); Urine Phencyclidine Negative (Negative); Urine Tetrahydrocannabinol Positive (Negative); Urine Tricyclic Antidepressant Negative (Negative); Urine pH Normal (Normal)
[2021-06-28 14:18] LABS: Alanine Aminotransferase 28 IU/L (<50); Albumin 4.9 g/dL (3.5-5.0); Albumin Globulin Ratio 1.7 (1.0-2.8); Alkaline Phosphatase 44 U/L (38-126); Aspartate Aminotransferase 30 IU/L (17-59); BUN Creatinine Ratio 20.2 (6-22); Bilirubin Total 0.9 mg/dL (0.2-1.3); Blood Urea Nitrogen 19 mg/dL (9-20); Calcium 9.5 mg/dL (8.4-10.2); Carbon Dioxide 24 mmol/L (22-32); Chloride 106 mmol/L (98-107); Creatine Kinase 118 U/L (55-170); Estimated Glomerular Filt Rate > 60.0 mL/min (>60); Ethanol (ETOH) < 10 mg/dL; Globulin 2.9 g/dL (1.7-4.1); Glucose 71 mg/dL (70-100); HEMOLYSIS 16 (0-50); Potassium 4.3 mmol/L (3.4-5.1); Sodium 139 mmol/L (137-145); Total Protein 7.8 g/dL (6.3-8.2)
--- NOTE | 2021-06-28 14:25 | PC.NURSE ---
Pt ambulates quickly with steady gait when using a walker. Pt reports that walker helps make him feel more stable. Pt is unsteady without the walker. Pt reports feeling slightly dizzy when walking but dissipates when he stops and rest with the walker in a standing position. Pt need to be reminded to slow down and take his time walking.
[2021-06-28 14:29] LABS: Troponin I < 0.012 ng/mL (0.01-0.034)
[2021-06-28 14:33] LABS: CKMB % Relative Index 1.5 % (1.5-5.0); Creatine Kinase MB 1.76 ng/mL (<2.37)
--- NOTE | 2021-06-28 14:40 | PC.NURSE ---
Pt appears confused and is repeatedly getting up out of bed and wandering the halls. When asked what he needs he states her needs to nanda the restroom.
--- NOTE | 2021-06-28 14:44 | PC.NURSE ---
This FACING END TRIMMER assisted patient to the bathroom. After the patient entered the bathroom, this FACING END TRIMMER went back to desk to document assistance with elimination. This FACING END TRIMMER heard the bathroom door open and heard patient's shoes so this FACING END TRIMMER went over to investigate. Patient walked into the doctor's breakroom. When this FACING END TRIMMER retrieved patient, he was asked if he was confused. Patient said yes. When asked where he was patient replied that he was in the [facility]. Nurse and provider aware of patient's altered behavior.
--- NOTE | 2021-06-28 15:11 | PT.IIE ---
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) Physical Therapy Inpatient Evaluation/Re-Eval M1 PT/OT-IP Prior Functional Status Start: 06/28/21 16:43 Freq: Status: Active Protocol: Document 06/28/21 15:11 AB (Rec: 06/28/21 17:08 AB [email or web address]) Medical Review Prior Functional Status Medical History Reviewed Yes Communication with confusion; able to answer questions but pt is slightly drowsy and is impulvie Mobility and Gait pt taed that he is modified independent with all mobilities and ambulation without AD but has h/o falls Social History Household Members family Living Arrangements Apartment/Condo Number of Floors (Floors) One Floor Number of Stairs To Enter/Railing? 1 step to enter Home Environment Standard Height Toilet,Tub/ Shower Home Equipment Shower Seat with Backrest,Hand Held Shower Additional Social History Comment pt lives with his mother M2 PT-IP Current Condition Start: 06/28/21 16:43 Freq: Status: Active Protocol: Document 06/28/21 15:11 AB (Rec: 06/28/21 17:08 AB [email or web address]) Physical Therapy Current Condition Current Condition Evaluation Date 06/28/21 Treatment Diagnosis s/p fall; difficulty in walking Onset Date 06/28/21 M3 PT-IP Subjective Start: 06/28/21 16:43 Freq: Status: Active Protocol: Document 06/28/21 15:11 AB (Rec: 06/28/21 17:08 AB [email or web address]) Subjective Physical Therapy Visit Type Type Initial Evaluation Visit Start Time 15:11 Visit Stop Time 15:41 Total Visit Minutes 30 Number of MANAGER UNDERWRITING Visits 0 Physical Therapy Visit Comments Patient Comments agreeable to do PT Therapy Pain Assessment Pain When Pain Assessed At Rest Pain Present Pain Present Pain Reported Location Left Ribs Scale Used pain scale not stated Pain Management Techniques Distraction,Re-positioning M4 PT-IP Mobility and Gait Start: 06/28/21 16:43 Freq: Status: Active Protocol: Document 06/28/21 15:11 AB (Rec: 06/28/21 17:08 AB [email or web address]) PT-Bed Mobility Assessment Supine to Sit Supine to Sit Standby Assistance Sit to Supine Sit to Supine Standby Assistance PT-Transfer Assessment Sit to and From Stand Sit to and from Stand Standby Assistance Equipment Transfer Assistive Device None,Gait Belt,Front Wheeled Walker Orthotic/Prosthetic Devices or Brace: No Comments Mobility Comments Pt in the ER and nurse was going to dispense pt with a FWW. adjusted FWW for pt. checked pt in room and pt was walking out of the room without AD with unsteady gait. nurse assisted pt back to his room and sat on EOB. pt is very impulsive and also slightly drowsy but able to answer questions. pt completed sit to stand SBA and ambulated in room without AD min A and with very unsteady gait ~ 10 ft. pt plop back on the bed to lying down position. educated on safety and use of FWW and pt agreed. completed supine to sit SBA but with difficulty and c/o back pain. pt completed sit to stand again SBA. has L sided weakness due to h/o CVA and needs cues and assistance to hold to L side of FWW. pt ambulated in room with FWW ~ 30 ft CGA to min A and cues. pt continues to be impulsive and has decrease safety awareness. pt went back to bed. sit to supine SBA. informed nurse, case maker and doctor regarding pt's mobility and decrease safety awareness. Gait Assessment Gait Gait Assistance Required: Minimum Assistance Distance (Feet) 30 Able to Maintain Weight Bearing Status Yes During Gait Assistive Devices Assistive Device Gait Belt,Front Wheeled Walker Orthotic/Prosthetic Devices or Brace: No Gait Deviations General Gait Pattern Ataxic,Decreased Stride Length ,Decreased Feet Clearance Factors Limiting Gait Function Factors Limiting Gait Function Decreased Activity Tolerance, Decreased Strength,Difficulty Following Directions,Poor Balance,Poor Safety Awareness PT-Balance Assessment Sitting Balance and Reactions Static Sitting Balance Ability Good Dynamic Sitting Balance Ability Fair Standing Balance and Reactions Static Standing Balance Ability Fair Dynamic Standing Balance Ability Poor Device Used without AD M5 PT-IP Objective Assessments Start: 06/28/21 16:43 Freq: Status: Active Protocol: Document 06/28/21 15:11 AB (Rec: 06/28/21 17:08 AB [id number]) Orientation Orientation/Cognition Level of Alertness Confusional State Orientation Name Language Function Ability No Deficits Noted Safety Awareness Decreased Safety Awareness Memory Description Short Term Impaired Gross Range of Motion Lower Extremity ROM Assessment Within Functional Limits Strength Lower Extremity Strength Assessment Left Impaired Hip 4-/5 Knee 4-/5 M6 PT-IP Treatment Start: 06/28/21 16:43 Freq: Status: Active Protocol: Document 06/28/21 15:11 AB (Rec: 06/28/21 17:08 AB [email or web address]) Physical Therapy Treatment Education Education Provided Safety M7 PT-IP Assessment and Plan Start: 06/28/21 16:43 Freq: Status: Active Protocol: Document 06/28/21 15:11 AB (Rec: 06/28/21 17:08 AB [email or web address]) PT Summary Assessment and Plan Potential Rehabilitation Potential Fair Status of Condition at Evaluation Evolving Summary Impairments Pain,ROM,Strength,Balance, Coordination,Sensation,Tone, Cognition,Bed Mobility, Transfers,Gait,Activity Tolerance Assessment Summary Received PT eval from ER to assess for d/c. Pt s/p fall. pt with recent h/o CVA with L sided weakness. pt's is impulsive and has decrease safety awareness despite cues given. pt is a high fall risk due to cognitive issues resulting in decrease safety awareness with decrease carryover of safety techniques and education provided. pt lives with his mother and stated that his mother will be able to assist him. pt will require 24/7 assist availability for safety at this time. informed case maker and nurse regarding pt's mobility and safety. informed the ER doctor regarding pt's mobility and safety and stated that she is aware of it but there is not much that can be done at this time and no medical needs for hospital admission. Goals Bed Mobility Goal Standby Assistance Transfer Goal Standby Assistance,Front Wheeled Walker Gait Goal Standby Assistance,Front Wheel Walker Gait Distance 200 Other Goals up/down 1 step using FWW Days to Meet Goals 5 Frequency of Treatment Frequency Of Treatment Once a Day Treatment Plan Physical Therapy Treatment Plan Bed Mobility Training,Transfer Training,Gait Training, Therapeutic Exercise,Balance Retraining,Discharge Planning, Hot or Cold Pack,Neuromuscular Re-ed,Coordination Retraining ,Manual Therapy Recommendations To Nursing Amount of Assist Needed 1 Person Assist Discharge Recommendations PT Discharge Recommendations Home with 24/7 Assist Available,Home Health Transportation Needs at Discharge Private Vehicle,Wheelchair/ Cabulance
--- NOTE | 2021-06-28 15:22 | CM.SWNOTE ---
DIPLOMA DENTAL ASSISTANT Note DIPLOMA DENTAL ASSISTANT calls patient's mother who reports that patient has been confused at baseline since d/c from the hospital after CVA. Mother states she did not know that patient was at the hospital. Mother confirms that patient did not d/c with FWW. Mother states that she is aware of patient falling on two occasions but he has been able to get back up, it is reported that patient has not been using FWW at home. PT to meet with patient, evaluate and patient to d/c to home with FWW. DIPLOMA DENTAL ASSISTANT speaks with patient's friend Thierry who reports he can pick patient up and provide ride upon d/c. ROLF Flores
== END 2021-06-28 17:08 | disposition home or self-care (01) ==
PROVIDERS: Emergency Provider Emergency Medicine
DX: R29.6 Repeated falls (principal); F17.210 Nicotine dependence, cigarettes, uncomplicated
CPT/HCPCS: 36415; 70450; 80053; 80305; 80320; 81003; 82550; 82553; 84484; 85025; 85610; 85730; 93005; 93010; 96372; 97162; 99284; J2060

== ENCOUNTER 2021-07-05 10:01 | Emergency (ER) | payer OTHER, SELFPAY ==
[2021-06-18 10:03] VITALS: BMI 21.2
[2021-07-05] VITALS (8 sets, daily range): BP systolic 125–140; BP diastolic 85–91; PULSE 58–85; RESP 12–15; TEMP 36.8; O2SAT 96–100; BMI 23.2
--- NOTE | 2021-07-05 10:21 | ED.CHESTPAIN ---
HPI - Chest Pain General Chief Complaint: Extremity Problem,Nontraumatic Stated Complaint: leg pain, left side chest pain Time Seen by Provider: 07/05/21 10:21 History of Present Illness HPI narrative: 56-year-old male daily smoker with history of coronary artery disease, status post 4 way bypass, and stroke returns to the emergency department due to some left-sided chest pain that has been present off and on for least a few days as well as right hip pain. He denies any obvious provocation or palliation of his chest pain. He states it is left chest and sharp and stabbing in nature. He denies any dizziness, weakness or lightheadedness. He denies any cough or shortness of breath. He denies fever chills nor nausea, vomiting or diarrhea. Additionally he is having pain in his right hip and states it is worse with range of motion and movement, he denies any numbness, tingling or weakness. He was seen and evaluated the walk-in clinic and sent here for evaluation Related Data Home Medications Medication Instructions Recorded Confirmed lisinopril 20 mg tablet 20 mg PO DAILY 07/15/18 07/04/21 atorvastatin 80 mg tablet 80 mg PO BEDTIME 01/23/20 07/04/21 metoprolol succinate 25 mg capsule 25 mg PO DAILY 01/23/20 07/04/21 sprinkle, ext. release 24 hr hydroxyzine HCl 25 mg tablet 25 mg PO TID 06/18/21 07/04/21 spironolactone 25 mg tablet 12.5 mg PO DAILY tab 07/04/21 07/04/21 tamsulosin 0.4 mg capsule 0.4 mg PO DAILY 07/04/21 07/04/21 Previous Rx's Medication Instructions Recorded bupropion HCl 150 mg 24 hr tablet, 450 mg PO QAM #90 tab 05/31/21 extended release cyclobenzaprine 5 mg tablet 5 mg PO TID PRN #20 tab 06/12/21 aspirin 81 mg tablet,delayed 81 mg PO DAILY #30 tab 06/20/21 release diazepam 5 mg tablet 5 mg PO BID #60 tab 06/26/21 gabapentin 400 mg capsule 400 mg PO TID #90 cap 06/26/21 olanzapine 20 mg tablet 20 mg PO BEDTIME #30 tab 06/26/21 Allergies Allergy/AdvReac Type Severity Reaction Status Date / Time No Known Drug Allergies Allergy Verified 07/05/21 10:30 Review of Systems Review of Systems Narrative: GENERAL: Denies chills, fatigue, malaise, fever, sweats. HEENT: Denies sinus pain, ear pain, sore throat, difficulty swallowing, dizziness. RESPIRATORY: Denies dyspnea, cough, wheezing, hemoptysis, sputum. CARDIOVASCULAR: See HPI GASTROINTESTINAL: Denies nausea, vomiting, abdominal pain, diarrhea, constipation, melena. : Denies dysuria, frequency, incontinence, hematuria, urinary retention. MUSCULOSKELETAL: See HP SKIN: Denies rash, skin lesions, or other NEUROLOGIC: See HPI PSYCHIATRIC: No concerning psychosocial issues. 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 Slow pressured speech, a baseline per prior experience and per patient's admission HEAD: Atraumatic. Normocephalic. EYES: Pupils equal round and reactive. Extraocular motions intact. No scleral icterus. No injection or drainage. ENT: Nose without bleeding, purulent drainage. Throat without erythema, tonsillar hypertrophy or exudate. Airway patent. NECK: Trachea midline. Non tender CARDIOVASCULAR: Regular rate and rhythm without murmurs, gallops, or rubs. No reproducible pain, crepitance or subcu emphysema RESPIRATORY: Clear to auscultation. Breath sounds equal bilaterally. No wheezes, rales, or rhonchi. GASTROINTESTINAL: Abdomen soft, non-tender, nondistended. EXTREMITIES: No obvious edema, erythema or warmth. Tender to palpation and right hip BACK: Nontender without deformity or crepitance. No flank tenderness. NEURO: AOx3. SKIN: No rash or erythema of visible areas Initial Vital Signs Initial Vital Signs: Vital Signs Pulse Rate 77 07/05/21 10:13 Pulse Oximetry 99 07/05/21 10:13 Course Orders Ordered: ED Orders 07/05/21 10:22 Chest [XR chest 1V] Stat XR hip w pel if done RT 2V Stat 07/05/21 10:25 Complete Blood Count AUTO DIFF Stat Comprehensive Metabolic Panel Stat D Dimer Stat NT-proBNP (BNP-Adult 18+) Stat Prothrombin Time INR Stat Troponin & CK Cardiac Panel Stat Vital Signs Vital signs: Vital Signs - 8 hr 07/05/21 10:13 07/05/21 10:14 07/05/21 10:30 Temperature 98.2 F Pulse Rate 77 85 Respiratory Rate 14 Blood Pressure 125/91 H 125/91 H Pulse Oximetry 99 96 100 MDM - Chest Pain Lab Data Result diagrams: 07/05/21 10:25 07/05/21 10:25 Labs: Lab Results 07/05/21 07/05/21 07/05/21 Range/Units 10:25 10:25 10:25 WBC 5.4 (4.5-11.0) X10^3/uL RBC 4.58 (4.5-5.9) X10^6/uL Hgb 13.8 (13.5-17.5) g/dL Hct 39.9 L (41-53) % MCV 87.2 (80-100) fL MCH 30.2 (26-34) PG MCHC 34.6 (30-36) % RDW 13.2 (11.6-14.8) % Plt Count 226 (150-400) X10^3/uL Neut % (Auto) 65.5 (50-75) % Lymph % (Auto) 24.4 L (25-40) % [place] % (Auto) 5.7 (3-14) % Eos % (Auto) 3.4 (2-4) % Baso % (Auto) 1.0 (0-2) % Neut # (Auto) 3500 (0403-9099) /uL Lymph # (Auto) 1300 (8087-2941) /uL [place] # (Auto) 300 (0-900) /uL Eos # (Auto) 200 (0-450) /uL Baso # (Auto) 100 (0-100) /uL PT 11.6 (10.1-12.7) SECONDS INR 1.0 (0.9-1.3) D-Dimer 215 (<230) ng/mL Sodium 141 (137-145) mmol/L Potassium 4.2 (3.4-5.1) mmol/L Chloride 105 (98-107) mmol/L Carbon Dioxide 28 (22-32) mmol/L BUN 22 H (9-20) mg/dL Creatinine 0.79 (0.66-1.25) mg/dL Estimated GFR > 60.0 (>60) mL/min BUN/Creatinine Ratio 27.8 H (6-22) Glucose 100 (70-100) mg/dL Calcium 9.7 (8.4-10.2) mg/dL Total Bilirubin 0.4 (0.2-1.3) mg/dL AST 20 (17-59) IU/L ALT 19 (<50) IU/L Alkaline Phosphatase 50 (38-126) U/L Total Creatine Kinase 74 (55-170) U/L CK-MB (CK-2) TNP CK-MB (CK-2) Rel Index TNP Troponin I < 0.012 (0.01-0.034) ng/mL NT-Pro-B Natriuret Pep 205 H (<125) pg/mL Total Protein 8.1 (6.3-8.2) g/dL Albumin 4.9 (3.5-5.0) g/dL Globulin 3.2 (1.7-4.1) g/dL Albumin/Globulin Ratio 1.5 (1.0-2.8) MDM Narrative Medical decision making narrative: Multiple causes of chest pain considered including [place], PE, pneumothorax, pneumonia, aortic dissection, and pleurisy. Patient reports no radiation, no diaphoresis, no provocation with exertion, and no vomiting Patient's symptoms improved over duration of stay with above-stated therapies. Findings and discharge diagnosis discussed with patient/family followed by verbalization of understanding Return precautions discussed with patient/family whom verbalize understanding. Discharge Plan Departure Patient Disposition: Home Clinical Impression: Acute leg pain, Atypical chest pain Instructions: DI for Atypical Chest Pain Activity Restrictions/Additional Instructions: *You have been diagnosed with [atypical chest pain and leg pain. As we discussed there is a very reassuring history and physical exam as well as labs an EKG. You have no sign of heart attack or blood clot nor rib fractures or pneumonia. Regarding your leg there is no indication of a blood clot, infection, broken bone or dislocation. *What to do: *Please continue to take your regular medications as directed. [ ] New medication prescriptions sent to your pharmacy: [ ] [ ] New medication written as a paper prescription [x ] No new medications given *Please follow up with your primary care provider in 2-3 days, call for an appointment. Let them know you were seen in the Emergency Department and that we ask that you be seen in follow up. We will electronically transmit a record of today's note if your PCP is in our system *If you do not have a primary care provider please contact the [facility] Resource line at [phone]. They will ask some questions about your medical history and help get you set up with a doctor in the community. *Return to Emergency Department if you should have any new, worsening or concerning symptoms, such as [fever greater than 101 F, shaking chills, worsening pain, persistent vomiting or other bothersome symptoms] Prescriptions: No Action cyclobenzaprine 5 mg tablet 5 mg PO TID PRN (Reason: muscle spasm) Qty: 20 0RF Rx Instructions: prescribed 06/16/21 x 7 days atorvastatin 80 mg tablet 80 mg PO BEDTIME 0RF metoprolol succinate 25 mg capsule,sprinkle,ER 24hr 25 mg PO DAILY 0RF diazepam 5 mg tablet 5 mg PO BID Qty: 60 0RF gabapentin 400 mg capsule 400 mg PO TID Qty: 90 3RF olanzapine 20 mg tablet 20 mg PO BEDTIME Qty: 30 3RF spironolactone 25 mg tablet 12.5 mg PO DAILY 0RF Rx Instructions: Take one half tablet by mouth daily tamsulosin 0.4 mg capsule 0.4 mg PO DAILY 0RF bupropion HCl 150 mg tablet extended release 24 hr 450 mg PO QAM Qty: 90 2RF Rx Instructions: take 3 tablet every morning hydroxyzine HCl 25 mg tablet 25 mg PO TID 0RF aspirin 81 mg Tablet,Delayed Release (Dr/Ec) 81 mg PO DAILY Qty: 30 0RF lisinopril 20 mg tablet 20 mg PO DAILY 0RF Referrals: Crow Menendez MD [Primary Care Provider] -
--- NOTE | 2021-07-05 10:22 | DI.RAD.S_ITS ---
PROCEDURE: XR HIP W PEL IF DONE RT 2V INDICATIONS: fall with R hip pain TECHNIQUE: AP pelvis with lateral view(s) of the right hip(s). COMPARISON: [facility], , XR HIP W PEL IF DONE RT 2V, 09/24/2019, 19:51. FINDINGS: Bones: No fractures or dislocations. Moderate bilateral joint space loss and osteophytosis. Prominence of the bilateral femoral head/neck junctions again demonstrated, concerning for femoral acetabular impingement. Pelvic ring appears intact. No suspicious bony lesions. Soft tissues: The visualized bowel gas pattern is normal. No suspicious soft tissue calcifications. IMPRESSION: Bilateral hip degeneration as detailed above. Dictated by: Suleman Rodriguez M.D. on 07/05/2021 at 10:48 Approved by: Suleman Rodriguez M.D. on 07/05/2021 at 10:49
--- NOTE | 2021-07-05 10:22 | DI.RAD.S_ITS ---
PROCEDURE: XR CHEST 1V INDICATIONS: chset pain TECHNIQUE: One view of the chest was acquired. COMPARISON: [facility], CR, XR CHEST 1V, 08/01/2020, 9:26. FINDINGS: Surgical changes and devices: Sternotomy wire matter alignment is unchanged. Redemonstrated valve prosthesis. Lungs and pleura: Persistent linear densities in the left mid lung zone, compatible with scar. No consolidation, pleural effusions or pneumothorax. Mediastinum: Mediastinal contours appear normal. Heart size is normal. Bones and chest wall: No suspicious bony lesions. Overlying soft tissues appear unremarkable. IMPRESSION: No significant interval change. Dictated by: Suleman Rodriguez M.D. on 07/05/2021 at 10:43 Approved by: Suleman Rodriguez M.D. on 07/05/2021 at 10:48
[2021-07-05 10:33] LABS: Add Manual Diff / Slide Review NO; Basophils Absolute Auto 100 /uL (0-100); Eosinophils Absolute Auto 200 /uL (0-450); Eosinophils Percent Auto 3.4 % (2-4); Hematocrit 39.9 % (41-53); Hemoglobin 13.8 g/dL (13.5-17.5); Lymphocytes Absolute Auto 1300 /uL (1100-4500); Lymphocytes Percent Auto 24.4 % (25-40); Mean Corpuscular HGB Conc 34.6 % (30-36); Mean Corpuscular Hemoglobin 30.2 PG (26-34); Mean Corpuscular Volume 87.2 fL (80-100); Monocytes Absolute Auto 300 /uL (0-900); Monocytes Percent Auto 5.7 % (3-14); Neutrophils Absolute Auto 3500 /uL (1500-7000); Neutrophils Percent Auto 65.5 % (50-75); Platelet Count 226 X10^3/uL (150-400); Red Blood Cell Count 4.58 X10^6/uL (4.5-5.9); Red Cell Distribution Width 13.2 % (11.6-14.8); White Blood Cell Count 5.4 X10^3/uL (4.5-11.0)
[2021-07-05 10:42] LABS: Prothrombin Time 11.6 SECONDS (10.1-12.7)
[2021-07-05 10:45] LABS: Alanine Aminotransferase 19 IU/L (<50); Albumin 4.9 g/dL (3.5-5.0); Albumin Globulin Ratio 1.5 (1.0-2.8); Alkaline Phosphatase 50 U/L (38-126); Aspartate Aminotransferase 20 IU/L (17-59); BUN Creatinine Ratio 27.8 (6-22); Bilirubin Total 0.4 mg/dL (0.2-1.3); Blood Urea Nitrogen 22 mg/dL (9-20); Calcium 9.7 mg/dL (8.4-10.2); Carbon Dioxide 28 mmol/L (22-32); Chloride 105 mmol/L (98-107); Creatine Kinase 74 U/L (55-170); D Dimer 215 ng/mL (<230); Estimated Glomerular Filt Rate > 60.0 mL/min (>60); Globulin 3.2 g/dL (1.7-4.1); Glucose 100 mg/dL (70-100); HEMOLYSIS < 15 (0-50); Potassium 4.2 mmol/L (3.4-5.1); Sodium 141 mmol/L (137-145); Total Protein 8.1 g/dL (6.3-8.2)
[2021-07-05 10:57] LABS: NT-proBNP (BNP-Adult 18+) 205 pg/mL (<125); Troponin I < 0.012 ng/mL (0.01-0.034)
== END 2021-07-05 12:16 | disposition home or self-care (01) ==
PROVIDERS: Emergency Provider Emergency Medicine; PCP Internal Medicine
DX: M25.551 Pain in right hip (principal); R07.89 Other chest pain; F17.210 Nicotine dependence, cigarettes, uncomplicated
CPT/HCPCS: 36415; 71045; 73502; 80053; 82550; 83880; 84484; 85025; 85379; 85610; 93005; 99284

== ENCOUNTER 2021-10-06 06:08 | Emergency (ER) | payer OTHER, SELFPAY ==
[2021-06-18 10:03] VITALS: BMI 21.2
[2021-10-06 06:22] VITALS: BP 149/78; PULSE 74; RESP 26; TEMP 36.7; O2SAT 98; BMI 25.0
--- NOTE | 2021-10-06 06:24 | DI.RAD.S_ITS ---
PROCEDURE: XR CHEST 1V INDICATIONS: short of breath x1 month TECHNIQUE: One view of the chest was acquired. COMPARISON: [facility], CR, XR CHEST 1V, 07/05/2021, 10:17. FINDINGS: Surgical changes and devices: Midline sternal wires present. Multiple mediastinal vascular clips noted. Left-sided platelike atelectasis or infiltrate present. Valve prosthesis noted. Lungs and pleura: Lungs are clear. No pleural effusions or pneumothorax. Mediastinum: Mediastinal contours appear normal. Heart size is normal. Bones and chest wall: No suspicious bony lesions. Overlying soft tissues appear unremarkable. IMPRESSION: Stable left platelike atelectasis or scarring. No acute cardiopulmonary findings Approved by: Ariel Graff M.D. on 10/06/2021 at 6:49
--- NOTE | 2021-10-06 06:41 | ED.URI ---
HPI - URI/Sore Throat General Chief Complaint: Shortness of Breath/Dyspnea Stated Complaint: sob/coughing Time Seen by Provider: 10/06/21 06:24 Source: patient Mode of arrival: Ambulatory History of Present Illness HPI Narrative: Patient is a 56-year-old male with history of bipolar, TIA place 2 hypertension presenting in today with cough and increasing shortness of breath. He says been up the last couple of days. The he maybe has some chest tightness but no real shortness of breath. He had body aches. He is not coughing anything up. No worsening shortness of breath with exertion. Related Data Home Medications Medication Instructions Recorded Confirmed lisinopril 20 mg tablet 20 mg PO DAILY 07/15/18 10/01/21 atorvastatin 80 mg tablet 80 mg PO BEDTIME 01/23/20 10/01/21 metoprolol succinate 25 mg capsule 25 mg PO DAILY 01/23/20 10/01/21 sprinkle, ext. release 24 hr spironolactone 25 mg tablet 12.5 mg PO DAILY 07/04/21 10/01/21 tamsulosin 0.4 mg capsule 0.4 mg PO DAILY 07/04/21 10/01/21 Previous Rx's Medication Instructions Recorded aspirin 81 mg tablet,delayed 81 mg PO DAILY #30 tabs 06/20/21 release olanzapine 20 mg tablet 20 mg PO BEDTIME #30 tabs 06/26/21 bupropion HCl 150 mg 24 hr tablet, 450 mg PO QAM #90 tabs 08/16/21 extended release hydroxyzine HCl 25 mg tablet See Rx Instructions PO TID PRN 08/21/21 anxiety #180 tabs gabapentin 400 mg capsule 400 mg PO TID #90 caps 09/25/21 diazepam 5 mg tablet 5 mg PO BID #60 tabs 09/26/21 doxycycline hyclate 100 mg capsule 100 mg PO BID #14 caps 10/01/21 prednisone 20 mg tablet 40 mg PO DAILY #10 tabs 10/01/21 Allergies Allergy/AdvReac Type Severity Reaction Status Date / Time No Known Drug Allergies Allergy Verified 10/01/21 16:06 Review of Systems Review of Systems Narrative: GENERAL: Denies chills, fatigue, malaise, fever, sweats, travel HEENT: Denies sinus pain, ear pain, sore throat, difficulty swallowing, neck pain RESPIRATORY: See HPI CARDIOVASCULAR: Denies chest pain, palpitations, orthopnea, edema GASTROINTESTINAL: Denies nausea, vomiting, abdominal pain, diarrhea, constipation, melena. : Denies dysuria, frequency, incontinence, hematuria, urinary retention, flank pain. MUSCULOSKELETAL: Denies weakness, joint pain, or bony pain SKIN: No rash, no erythema, no pruritus NEUROLOGIC: Denies weakness, dizziness, headache, numbness, change in speech, confusion PSYCHIATRIC: No concerning psychosocial issues. 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) Surgical History H/O valvuloplasty S/P CABG x 4 Family History Grandfather Heart attack Family/Other Heart attack Social History household members: family Smoking Status: Current every day smoker alcohol intake: former Smoking Status: Current every day smoker tobacco type: cigarettes alcohol intake frequency: other Substance Use Type: does not use Exam Initial Vital Signs Initial Vital Signs: Vital Signs Temperature 98.0 F 10/06/21 06:22 Pulse Rate 74 10/06/21 06:22 Respiratory Rate 26 H 10/06/21 06:22 Blood Pressure 149/78 H 10/06/21 06:22 Pulse Oximetry 98 10/06/21 06:22 Oxygen Delivery Method 10/06/21 06:22 GENERAL: Alert 56-year-old male and in no acute distress. HEENT: Head atraumatic,EOMI, pupils reactive, face symmetric, CARDIOVASCULAR: Regular rate and rhythm without murmurs, rubs or gallops. RESPIRATORY: Coarse breath sounds bilaterally with mild wheeze no respiratory distress speaks in full sentences ABDOMEN: Soft, nontender. Normoactive bowel sounds all 4 quadrants. No guarding or rebound. EXTREMITIES: Normal range of motion, no clubbing or edema. Neurovascularly intact NEUROLOGICAL: Alert and oriented x4.Normal gait and speech. SKIN: Warm, dry, no laceration, no petechiae, no rashes or lesions. Course Orders Ordered: Discontinued Medications Albuterol/Ipratropium (Albuterol/Ipratropium 3 Ml Ampul) 3 ml INH NOW ONE Stop: 10/06/21 06:25 Last Admin: 10/06/21 06:46 Dose: 3 ml Documented By: RAVIN Lorazepam (Lorazepam 2 Mg/Ml Inj) 0.5 mg IV NOW ONE Stop: 10/06/21 06:45 Last Admin: 10/06/21 06:49 Dose: 0.5 mg Documented By: MARNI Methylprednisolone (Methylprednisolone 125 Mg/2 Ml Vial) 125 mg IV NOW ONE Stop: 10/06/21 06:25 Last Admin: 10/06/21 06:50 Dose: 125 mg Documented By: MARNI Vital Signs Vital signs: Vital Signs - 8 hr 10/06/21 06:22 Temperature 98.0 F Pulse Rate 74 Respiratory Rate 26 H Blood Pressure 149/78 H Pulse Oximetry 98 Oxygen Delivery Method Room Air MDM - URI/Sore Throat Lab Data Result diagrams: 10/06/21 06:46 10/06/21 06:46 Labs: Lab Results 10/06/21 10/06/21 10/06/21 Range/Units 06:40 06:46 06:46 WBC 10.2 (4.5-11.0) X10^3/uL RBC 4.46 L (4.5-5.9) X10^6/uL Hgb 13.8 (13.5-17.5) g/dL Hct 39.5 L (41-53) % MCV 88.5 (80-100) fL MCH 31.0 (26-34) PG MCHC 35.0 (30-36) % RDW 13.1 (11.6-14.8) % Plt Count 192 (150-400) X10^3/uL Neut % (Auto) 77.2 H (50-75) % Lymph % (Auto) 17.2 L (25-40) % [place] % (Auto) 4.7 (3-14) % Eos % (Auto) 0.4 L (2-4) % Baso % (Auto) 0.5 (0-2) % Neut # (Auto) 7800 H (8424-7738) /uL Lymph # (Auto) 1700 (4778-4861) /uL [place] # (Auto) 500 (0-900) /uL Eos # (Auto) 0 (0-450) /uL Baso # (Auto) 100 (0-100) /uL Sodium 140 (137-145) mmol/L Potassium 3.7 (3.4-5.1) mmol/L Chloride 107 (98-107) mmol/L Carbon Dioxide 24 (22-32) mmol/L BUN 20 (9-20) mg/dL Creatinine 0.81 (0.66-1.25) mg/dL Estimated GFR > 60 (>60) mL/min BUN/Creatinine Ratio 24.7 H (6-22) Glucose 135 H (70-100) mg/dL Calcium 8.8 (8.4-10.2) mg/dL Total Bilirubin 0.3 (0.2-1.3) mg/dL AST 18 (17-59) IU/L ALT 20 (<50) IU/L Alkaline Phosphatase 52 (38-126) U/L Total Creatine Kinase 36 L (55-170) U/L CK-MB (CK-2) TNP CK-MB (CK-2) Rel Index TNP Troponin I < 0.012 (0.01-0.034) ng/mL NT-Pro-B Natriuret Pep 236 H (<125) pg/mL Total Protein 7.2 (6.3-8.2) g/dL Albumin 4.4 (3.5-5.0) g/dL Globulin 2.8 (1.7-4.1) g/dL Albumin/Globulin Ratio 1.6 (1.0-2.8) Lipase 178 (23-300) U/L Procalcitonin < 0.03 (<0.5) ng/mL SARS-CoV-2 (PCR) Negative (Negative) MDM Narrative Medical decision making narrative: Patient does have history of smoking and COPD with coarse breath sounds. Blood work chest x-ray pending. Patient signed out to Dr. Boyd Discharge Plan Departure Patient Disposition: Left Against Medical Advice Clinical Impression: Left against medical advice, Discitis of lumbar region Prescriptions: No Action atorvastatin 80 mg tablet 80 mg PO BEDTIME metoprolol succinate 25 mg capsule,sprinkle,ER 24hr 25 mg PO DAILY bupropion HCl 150 mg tablet extended release 24 hr 450 mg PO QAM Qty: 90 2RF Rx Instructions: take 3 tablet every morning olanzapine 20 mg tablet 20 mg PO BEDTIME Qty: 30 3RF spironolactone 25 mg tablet 12.5 mg PO DAILY Rx Instructions: Take one half tablet by mouth daily tamsulosin 0.4 mg capsule 0.4 mg PO DAILY hydroxyzine HCl 25 mg tablet See Rx Instructions PO TID MDD 150mg PRN (Reason: anxiety) Qty: 180 0RF Rx Instructions: PO three times a day PRN; Take one to two tabs by mouth three times daily as needed for severe anxiety gabapentin 400 mg capsule 400 mg PO TID Qty: 90 2RF diazepam 5 mg tablet 5 mg PO BID Qty: 60 3RF doxycycline hyclate 100 mg capsule 100 mg PO BID Qty: 14 0RF prednisone 20 mg tablet 40 mg PO DAILY Qty: 10 0RF aspirin 81 mg Tablet,Delayed Release (Dr/Ec) 81 mg PO DAILY Qty: 30 0RF lisinopril 20 mg tablet 20 mg PO DAILY Referrals: Trent Gutiérrez MD [Primary Care Provider] - Stand Alone Forms: Against Medical Advice
[2021-10-06] MEDS: ALBUTEROL/IPRATROPIUM 3 ML AMPUL INH (06:46)
[2021-10-06 06:47] VITALS: O2SAT 98
[2021-10-06] MEDS: LORazepam 2 MG/ML INJ 0.5 MG IV (06:49)
[2021-10-06] MEDS: methylPREDNISolone 125 MG/2 ML VIAL IV (06:50)
[2021-10-06 06:53] LABS: Add Manual Diff / Slide Review NO; Basophils Absolute Auto 100 /uL (0-100); Basophils Percent Auto 0.5 % (0-2); Eosinophils Absolute Auto 0 /uL (0-450); Eosinophils Percent Auto 0.4 % (2-4); Hematocrit 39.5 % (41-53); Hemoglobin 13.8 g/dL (13.5-17.5); Lymphocytes Absolute Auto 1700 /uL (1100-4500); Lymphocytes Percent Auto 17.2 % (25-40); Mean Corpuscular Volume 88.5 fL (80-100); Monocytes Absolute Auto 500 /uL (0-900); Monocytes Percent Auto 4.7 % (3-14); Neutrophils Absolute Auto 7800 /uL (1500-7000); Neutrophils Percent Auto 77.2 % (50-75); Platelet Count 192 X10^3/uL (150-400); Red Blood Cell Count 4.46 X10^6/uL (4.5-5.9); Red Cell Distribution Width 13.1 % (11.6-14.8); White Blood Cell Count 10.2 X10^3/uL (4.5-11.0)
[2021-10-06 06:57] VITALS: PULSE 62; O2SAT 97
[2021-10-06 07:00] VITALS: PULSE 66; RESP 19; O2SAT 97
[2021-10-06 07:07] LABS: Alanine Aminotransferase 20 IU/L (<50); Albumin 4.4 g/dL (3.5-5.0); Albumin Globulin Ratio 1.6 (1.0-2.8); Alkaline Phosphatase 52 U/L (38-126); Aspartate Aminotransferase 18 IU/L (17-59); BUN Creatinine Ratio 24.7 (6-22); Bilirubin Total 0.3 mg/dL (0.2-1.3); Blood Urea Nitrogen 20 mg/dL (9-20); Calcium 8.8 mg/dL (8.4-10.2); Carbon Dioxide 24 mmol/L (22-32); Chloride 107 mmol/L (98-107); Creatine Kinase 36 U/L (55-170); Estimated Glomerular Filt Rate > 60 mL/min (>60); Globulin 2.8 g/dL (1.7-4.1); Glucose 135 mg/dL (70-100); HEMOLYSIS < 15 (0-50); Lipase 178 U/L (23-300); Potassium 3.7 mmol/L (3.4-5.1); Sodium 140 mmol/L (137-145); Total Protein 7.2 g/dL (6.3-8.2)
[2021-10-06 07:21] LABS: NT-proBNP (BNP-Adult 18+) 236 pg/mL (<125); Troponin I < 0.012 ng/mL (0.01-0.034)
[2021-10-06 07:26] LABS: Procalcitonin < 0.03 ng/mL (<0.5)
[2021-10-06 07:30] VITALS: PULSE 60; RESP 19; O2SAT 98
[2021-10-06 08:32] LABS: COVID19 -Nasal RAPID Negative (Negative)
== END 2021-10-06 08:35 | disposition left against medical advice (07) ==
PROVIDERS: Emergency Medicine; Emergency Provider Emergency Medicine; PCP Family Medicine
DX: M46.46 Discitis, unspecified, lumbar region (principal); R06.02 Shortness of breath; R07.9 Chest pain, unspecified; Z20.822 Contact with and (suspected) exposure to COVID-19
CPT/HCPCS: 36415; 71045; 80053; 82550; 83690; 83880; 84145; 84484; 85025; 87635; 93005; 93010; 94640; 96374; 96375; 99284; C9803; J2060; J2930

== ENCOUNTER → 2021-10-09 10:52 | Outpatient (CLI) | payer OTHER, SELFPAY ==
[2021-06-18 10:03] VITALS: BMI 21.2
--- NOTE | 2021-10-09 10:54 | DI.CT.S_ITS ---
PROCEDURE: CT LUNG LOW DOSE SCREENING INDICATIONS: 30+ pack year smoker TECHNIQUE: Noncontrast 2.0-2.5 mm thick sections acquired from the pulmonary apices to the posterior costophrenic angles. 7 mm thick axial MIP, and 5 mm coronal and sagittal reformats were then acquired. A low radiation dose technique was utilized. COMPARISON: [facility], MR, MR HEAD/BRAIN WO CON, 06/18/2021, 7:57. [facility], CR, XR CHEST 1V, 07/05/2021, 10:17. [facility], CR, XR CHEST 1V, 10/06/2021, 6:33. [facility], CT, CT ANGIO CHEST ABDOMEN PELVIS, 06/24/2020, 14:15. FINDINGS: Image quality: Diagnostic, given the low radiation dose technique. Lungs and pleura: No suspicious pulmonary nodules are seen. No focal infiltrates are seen. There is likely scarring seen involving the left upper lobe anteriorly, which is similar to 2020. No pneumothorax or pleural effusions are seen. The central airways are patent. Mediastinum: A tricuspid valve prosthesis is seen.. At least moderate coronary artery calcification is seen. Heart size is normal. No pericardial effusion. No mediastinal adenopathy by size criteria. Thoracic aorta and central pulmonary arteries are normal in size. Esophagus is normal in caliber. No hiatal hernia. Bones and chest wall: Sternotomy wires are seen. No suspicious bony lesions. Age-appropriate bony degenerative changes are seen. No vertebral body compression fractures. No axillary or supraclavicular adenopathy by size criteria. Thyroid gland demonstrates no significant noncontrast abnormality. Abdomen: Visualized upper abdomen solid organs and bowel loops appear normal in the absence of contrast. IMPRESSION: No suspicious pulmonary nodules can be seen. Apparent stable left upper lobe scarring. Incidental note is made of: Sternotomy wires and tricuspid valve prosthesis At least moderate coronary artery calcification LUNG-RADS 1; Recommend annual screening for lung cancer with low dose CT, as long as the patient meets the screening criteria. Dictated by: Pavan Solomon M.D. on 10/09/2021 at 16:47 Approved by: Pavan Solomon M.D. on 10/09/2021 at 16:52
== END ==
PROVIDERS: PCP Family Medicine; Referring Provider Family Medicine; Visit Provider Family Medicine
DX: F17.210 Nicotine dependence, cigarettes, uncomplicated (principal); J98.4 Other disorders of lung
CPT/HCPCS: 71250

== ENCOUNTER 2022-06-27 10:34 | Observation (INO) | payer OTHER, SELFPAY ==
[2021-06-18 10:03] VITALS: BMI 21.2
[2022-06-27] VITALS (23 sets, daily range): BP systolic 107–206; BP diastolic 45–98; PULSE 46–71; RESP 8–20; TEMP 34.5–36.8; O2SAT 93–100; BMI 29.0
--- NOTE | 2022-06-27 10:34 | DI.CT.S_ITS ---
PROCEDURE: CT STROKE INDICATIONS: left hemiparesis TECHNIQUE: Noncontrast 4.5 mm thick angled axial sections acquired from the foramen magnum to the vertex, with coronal reformats. For radiation dose reduction, the following was used: automated exposure control, adjustment of mA and/or kV according to patient size. COMPARISON: [facility], CT, CT STROKE, 06/18/2021, 6:47. FINDINGS: Image quality: Excellent. CSF spaces: Basal cisterns are patent. No extra-axial fluid collections. Ventricles are normal in size and shape. Brain: No midline shift. No intracranial masses or hemorrhage. Bustillo-white matter interface is normal. Large focus of encephalomalacia in the right frontal lobe, consistent with prior infarct. Skull and face: Calvarium and visualized facial bones are intact, without suspicious lesions. Sinuses: Visualized sinuses and mastoids are clear. IMPRESSION: 1. No evidence of hemorrhagic infarct . 2. Sequela of right MCA territory infarct. Dr. Mills spoke with Dr. Trivedi at 10:52 a.m. on 06/27/2022. This study fulfills neurological imaging criteria for inclusion or exclusion of acute stroke therapies based on available published neurological imaging guidelines. Dictated by: Gene Figueroa M.D. on 06/27/2022 at 10:49 Approved by: Geen Figueroa M.D. on 06/27/2022 at 10:53
--- NOTE | 2022-06-27 10:34 | DI.CT.S_ITS ---
PROCEDURE: CT ANGIO HEAD AND NECK INDICATIONS: left hemiparesis TECHNIQUE: After the administration of intravenous contrast, 1 mm thick sections acquired from the aortic arch through the [place]. Post-contrast 4.5 mm thick sections then re-acquired from the foramen magnum to the vertex. 3-dimensional tgheyij-gtvzdavqf-[id number] (MIP) and/or volume rendering reformats were acquired of the central intracranial vasculature and neck separately. For radiation dose reduction, the following was used: automated exposure control, adjustment of mA and/or kV according to patient size. COMPARISON: [facility], CT, CT STROKE, 06/27/2022, 10:36. [facility], CT, CT ANGIO HEAD AND NECK, 06/18/2021, 6:47. FINDINGS: Image quality: Excellent. BRAIN: CSF spaces: Ventricles are normal in size and shape. Basal cisterns are patent. No extra-axial fluid collections. Brain: No midline shift. No intracranial bleeds or masses. Stable large infarct in the right frontal lobe. Skull and face: Calvarium and facial bones appear intact, without suspicious lesions. Orbits appear normal. Sinuses: Sinuses and mastoids are clear. HEAD CT ANGIOGRAPHY: Anterior circulation: Intracranial internal carotid arteries are occluded as before. The flow within the paired anterior cerebral arteries is normal and symmetric. The flow within the middle cerebral arteries is patent. Left MCA is dominant. The anterior communicating artery is seen. No aneurysms are seen. Posterior circulation: Visualized portions of the vertebral arteries demonstrate normal caliber, and join to form a normal appearing basilar artery. Flow within the posterior cerebral arteries is normal and symmetric. No aneurysms are seen. NECK CT ANGIOGRAPHY: Carotid system: The great vessels demonstrate a conventional anatomy as they arise from the aortic arch. The origins of the common carotid arteries appear patent. The common carotid arteries demonstrate normal caliber and courses. Bilateral ICA are occluded as before. Dense plaque at the carotid bulbs. Collateral flow at the MCAs. Posterior circulation: The origins of the vertebral arteries both appear widely patent. The more superior extracranial portions of both vertebral arteries also demonstrate normal courses and calibers. High-grade stenoses of the bilateral V4 vertebral arteries due to calcified atherosclerotic plaque. They join to form a normal appearing basilar artery. Soft tissues: Visualized neck soft tissues demonstrate no suspicious abnormalities. Bones: No suspicious bony lesions. Visualized cervical spine appears normally aligned. IMPRESSION: 1. Unchanged occlusion of the bilateral ICA. No new intracranial occlusion demonstrated. 2. Stable right frontal lobe large infarct. 3. 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 Any quantitative measurements of stenosis were performed using NASCET criteria. Dictated by: Ismael Irizarry M.D. on 06/27/2022 at 11:11 Approved by: Ismael Irizarry M.D. on 06/27/2022 at 11:28
--- NOTE | 2022-06-27 10:38 | ED.NEUROSD ---
HPI - Neuro Symptoms/Deficit General Chief Complaint: Neuro Symptoms/Deficit Stated Complaint: Code Stroke Time Seen by Provider: 06/27/22 10:34 History of Present Illness HPI Narrative: Patient is a 57-year-old male history of CAD with 4 way bypass, stroke presents today as found down by civilian and confusion. EMS reports unclear if left-sided deficits new or old based on reports it seems to be old. He reports that he was dizzy fell down and could not get. He reports that he was fine yesterday. He denies any fever chills or cough chest pain. Unclear how long he had been outside. He denies abdominal pain nausea vomiting or other symptoms. He reports that his left visual changes off and on. He also reports he would a stroke 3 months ago. Our records report that was admitted here 06/18/2021 for CVA. POC glucose 70 Related Data Home Medications Medication Instructions Recorded Confirmed lisinopril 20 mg tablet 20 mg PO DAILY 07/15/18 12/30/21 atorvastatin 80 mg tablet 80 mg PO BEDTIME 01/23/20 12/30/21 metoprolol succinate 25 mg capsule 25 mg PO DAILY 01/23/20 12/30/21 sprinkle, ext. release 24 hr spironolactone 25 mg tablet 12.5 mg PO DAILY 07/04/21 12/30/21 tamsulosin 0.4 mg capsule 0.4 mg PO DAILY 07/04/21 12/30/21 Previous Rx's Medication Instructions Recorded aspirin 81 mg tablet,delayed 81 mg PO DAILY #30 tabs 06/20/21 release alprazolam 0.5 mg tablet 0.5 mg PO ONCE 30 min prior to 10/09/21 procedure #1 tab albuterol sulfate 90 mcg/actuation 2 inh inhalation Q4-6H PRN 12/30/21 aerosol inhaler shortness of breath or wheezing #6.7 grams azithromycin 250 mg tablet See Rx Instructions PO .COMPLEX #6 12/30/21 tabs benzonatate 100 mg capsule 100 mg PO BID-TID PRN cough #30 12/30/21 caps naproxen sodium 220 mg tablet 220 mg PO BID PRN pain #60 tabs 12/30/21 (Aleve) gabapentin 400 mg capsule 400 mg PO TID #90 caps 03/24/22 hydroxyzine pamoate 25 mg capsule See Rx Instructions .Route 04/24/22 .COMPLEX #180 caps olanzapine 20 mg tablet 20 mg PO BEDTIME #30 tabs 05/26/22 diazepam 5 mg tablet 5 mg PO BID #60 tabs 05/27/22 bupropion HCl 150 mg 24 hr tablet, 450 mg PO QAM #90 tabs 06/20/22 extended release Allergies Allergy/AdvReac Type Severity Reaction Status Date / Time No Known Drug Allergies Allergy Verified 12/30/21 16:24 Review of Systems Review of Systems ROS Unobtainable: All systems reviewed & are unremarkable except as noted in HPI and below 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) Tobacco use Surgical History H/O valvuloplasty S/P CABG x 4 Family History Grandfather Heart attack Family/Other Heart attack Social History household members: family Smoking Status: Current every day smoker alcohol intake: former Smoking Status: Current every day smoker tobacco type: cigarettes alcohol intake frequency: other Substance Use Type: does not use Exam Initial Vital Signs Initial Vital Signs: Vital Signs Temperature 94.1 F L 06/27/22 10:34 Pulse Rate 48 L 06/27/22 10:34 Respiratory Rate 10 L 06/27/22 10:34 Blood Pressure 164/86 H 06/27/22 10:34 Pulse Oximetry 98 06/27/22 10:34 Oxygen Delivery Method Room Air 06/27/22 10:34 GENERAL: Alert 57-year-old male and in no acute distress. HEENT: Head atraumatic,EOMI, pupils reactive, face symmetric, moist mucous membranes CARDIOVASCULAR: Regular rate and rhythm without murmurs, rubs or gallops. RESPIRATORY: Breath sounds equal bilaterally, no wheezes rales or rhonchi. ABDOMEN: Soft, nontender. Normoactive bowel sounds all 4 quadrants. No guarding or rebound. EXTREMITIES: Normal range of motion, no clubbing or edema. Neurovascularly intact NEUROLOGICAL: Alert and oriented x3.Normal gait and speech. Cranial nerves II through XII grossly intact. Left-sided facial droop left arm drifts to gurney but does not hit the bed. Good [id number] bilaterally mild left leg weakness but does not necessarily drift some dysarthria and aphasia unable to do [id number] with left arm secondary to weakness good [id number] with right SKIN: Warm, dry, no laceration, no petechiae, no rashes or lesions. Scores NIH Stroke Scale Level of Conciousness: Alert, keenly responsive Ask month/age: Answers both questions correctly. Open/close eyes, close hand: Performs both tasks correctly Best gaze horizontal: Normal Visual estrella: No visual loss Facial palsy: Minor paralysis, flattened nasolabial fold, asymmetry on smiling Left arm drift: No drift for full 10 sec Right arm drift: No drift for full 10 sec Left leg drift: Drifts down, not to bed Right leg drift: No drift for full 5 sec Limb ataxia: Absent Sensory on face/arms/legs: Normal, no sensory loss Best language: Mild to moderate, slurs some words Dysarthria: Mild to mod,some slurring Extinction or inattention: No abnormality Total NIH Stroke scale score: 4 Course Orders Ordered: ED Orders 06/27/22 10:[address] angio head and neck Stat 06/27/22 10:44 XR chest 1V Stat 06/27/22 10:50 Acetaminophen Stat Ammonia (NH3) Stat Complete Blood Count AUTO DIFF Stat Comprehensive Metabolic Panel Stat Ethanol (ETOH) Stat Lactate (Lactic Acid) Stat PTT Partial Thromboplastin Fco Stat Procalcitonin Stat Prolactin Stat Prothrombin Time INR Stat Salicylate Stat Thyroid Stimulating Hormone Stat Troponin & CK Cardiac Panel Stat 06/27/22 11:06 Blood Culture Stat EKG-12 Lead Stat 06/27/22 11:40 COVID19 -Nasal RAPID Stat 06/27/22 13:03 MR head/brain wo con Stat 06/27/22 14:45 Urinalysis and Microscopic Stat Urine Culture Stat Urine Drug Screen, Rapid Stat 06/27/22 16:53 Consult to Discharge Planning Routine Consult to Occupational Therapy Evaluate & Treat Consult to Physical Therapy Evaluate & Treat Consult to Speech Therapy Evaluate & Treat EC echo doppler complete Urgent Education, smoking cessation ONGOING Education, smoking cessation ONGOING 06/28/22 05:00 Basic Metabolic Panel DAILY Complete Blood Count AUTO DIFF DAILY 06/29/22 05:00 Basic Metabolic Panel DAILY Complete Blood Count AUTO DIFF DAILY 06/30/22 05:00 Basic Metabolic Panel DAILY Complete Blood Count AUTO DIFF DAILY Acetaminophen (Acetaminophen 325 Mg Tablet) 650 mg PO Q6H PRN PRN Reason: Fever/Mild Pain (1-3) Last Admin: 06/27/22 17:03 Dose: 650 mg Documented By: BT Aspirin (Aspirin Ec 81 Mg Tablet) 81 mg PO DAILY LEONA Atorvastatin Calcium (Atorvastatin 20 Mg Tablet) 80 mg PO BEDTIME LEONA Sodium Chloride (Normal Saline 0.9%) 1,000 mls @ 100 mls/hr IV CONT LEONA Stop: 07/28/22 02:52 Last Admin: 06/27/22 17:01 Dose: 100 mls/hr Documented By: BT Naloxone HCl (Naloxone 0.4 Mg/Ml Vial) 0.2 mg IV Q2MIN PRN PRN Reason: Opiate Reversal Discontinued Medications Alprazolam (Alprazolam 0.25 Mg Tablet) 0.25 mg PO NOW ONE Stop: 06/27/22 13:13 Last Admin: 06/27/22 13:47 Dose: 0.25 mg Documented By: AMU Sodium Chloride (Normal Saline 0.9%) 1,000 mls @ 150 mls/hr IV CONT LEONA Last Admin: 06/27/22 13:00 Dose: 150 mls/hr Documented By: AMU Sodium Chloride (Normal Saline 0.9%) 1,000 mls @ 1,000 mls/hr IV BOLUS ONE Stop: 06/27/22 12:35 Last Infusion: 06/27/22 13:00 Dose: 0 mls/hr Documented By: Admin: 06/27/22 11:40 Dose: 1,000 mls/hr Documented By: ZACK Vital Signs Vital signs: Vital Signs - 8 hr 06/27/22 11:22 06/27/22 11:30 06/27/22 11:31 Temperature Pulse Rate 52 L 49 L 48 L Respiratory Rate 8 L 8 L Blood Pressure Pulse Oximetry 98 98 97 Oxygen Delivery Method 06/27/22 11:31 06/27/22 11:45 06/27/22 11:45 Temperature Pulse Rate 48 L Respiratory Rate Blood Pressure 158/74 H 166/79 H Pulse Oximetry 99 Oxygen Delivery Method Room Air 06/27/22 12:00 06/27/22 12:00 06/27/22 12:15 Temperature Pulse Rate 51 L 59 L Respiratory Rate 15 17 Blood Pressure 166/78 H Pulse Oximetry 99 99 Oxygen Delivery Method 06/27/22 12:15 06/27/22 12:30 06/27/22 12:30 Temperature Pulse Rate 46 L Respiratory Rate 9 L Blood Pressure 182/76 H 163/77 H Pulse Oximetry 100 Oxygen Delivery Method 06/27/22 12:46 06/27/22 12:46 06/27/22 13:00 Temperature Pulse Rate 56 L Respiratory Rate 18 Blood Pressure 139/66 138/69 Pulse Oximetry 99 Oxygen Delivery Method 06/27/22 13:00 06/27/22 13:15 06/27/22 13:15 Temperature Pulse Rate 50 L 51 L Respiratory Rate 10 L 12 Blood Pressure 124/65 Pulse Oximetry 99 97 Oxygen Delivery Method 06/27/22 13:30 06/27/22 13:30 06/27/22 13:45 Temperature Pulse Rate 50 L Respiratory Rate 9 L Blood Pressure 107/60 116/64 Pulse Oximetry 98 Oxygen Delivery Method 06/27/22 13:45 06/27/22 14:00 06/27/22 14:00 Temperature Pulse Rate 51 L 52 L Respiratory Rate 11 L 10 L Blood Pressure 107/60 Pulse Oximetry 97 98 Oxygen Delivery Method 06/27/22 14:15 06/27/22 14:15 06/27/22 15:33 Temperature Pulse Rate 52 L 57 L Respiratory Rate 9 L Blood Pressure 134/68 Pulse Oximetry 98 99 Oxygen Delivery Method 06/27/22 15:34 06/27/22 15:34 06/27/22 15:46 Temperature 96.5 F L Pulse Rate 57 L Respiratory Rate Blood Pressure 203/98 H 206/92 H Pulse Oximetry 99 Oxygen Delivery Method 06/27/22 15:46 06/27/22 16:00 Temperature Pulse Rate 69 Respiratory Rate 13 Blood Pressure Pulse Oximetry Oxygen Delivery Method MDM - Neuro Symptoms/Deficit Lab Data 06/27/22 10:50 06/27/22 10:50 Labs: Lab Results 06/27/22 06/27/22 06/27/22 Range/Units 10:50 10:50 10:50 WBC 4.2 L (4.5-11.0) X10^3/uL RBC 4.47 L (4.5-5.9) X10^6/uL Hgb 13.9 (13.5-17.5) g/dL Hct 41.0 (41-53) % MCV 91.7 (80-100) fL MCH 31.1 (26-34) PG MCHC 33.9 (30-36) % RDW 12.7 (11.6-14.8) % Plt Count 156 (150-400) X10^3/uL Neut % (Auto) 55.1 (50-75) % Lymph % (Auto) 32.7 (25-40) % [place] % (Auto) 6.0 (3-14) % Eos % (Auto) 5.2 H (2-4) % Baso % (Auto) 1.0 (0-2) % Neut # (Auto) 2300 (8497-8912) /uL Lymph # (Auto) 1400 (2347-9679) /uL [place] # (Auto) 300 (0-900) /uL Eos # (Auto) 200 (0-450) /uL Baso # (Auto) 0 (0-100) /uL PT 11.9 (10.1-12.7) SECONDS INR 1.0 (0.9-1.3) APTT 30 (26-36) SECONDS Sodium 141 (137-145) mmol/L Potassium 4.5 (3.4-5.1) mmol/L Chloride 108 H (98-107) mmol/L Carbon Dioxide 28 (22-32) mmol/L BUN 14 (9-20) mg/dL Creatinine 0.84 (0.66-1.25) mg/dL Estimated GFR > 60 (>60) mL/min BUN/Creatinine Ratio 16.7 (6-22) Glucose 88 (70-100) mg/dL Lactate (0.7-2.1) mmol/L Calcium 8.6 (8.4-10.2) mg/dL Total Bilirubin 0.4 (0.2-1.3) mg/dL AST 20 (17-59) IU/L ALT 24 (<50) IU/L Alkaline Phosphatase 45 (38-126) U/L Ammonia (9-30) umol/L Total Creatine Kinase 109 (55-170) U/L CK-MB (CK-2) 0.97 (<2.37) ng/mL CK-MB (CK-2) Rel Index 0.9 L (1.5-5.0) % Troponin I < 0.012 (0.01-0.034) ng/mL Total Protein 6.8 (6.3-8.2) g/dL Albumin 4.2 (3.5-5.0) g/dL Globulin 2.6 (1.7-4.1) g/dL Albumin/Globulin Ratio 1.6 (1.0-2.8) Procalcitonin < 0.03 (<0.5) ng/mL TSH (0.47-4.68) uIU/mL Prolactin 4.6 (3.7-17.9) ng/mL Urine Color Urine Appearance Urine pH (4.5-8.0) Ur Specific [place] (1.000-1.035) Urine Protein (Negative) Urine Glucose (UA) (Negative) g/dL Urine Ketones (NEGATIVE) Urine Occult Blood (Negative) Urine Nitrate (Negative) Urine Bilirubin (NEGATIVE) Urine Urobilinogen (0.2) E.U./dL Ur Leukocyte Esterase (NEGATIVE) Urine RBC (0-5/HPF) Urine WBC (0-5/HPF) Ur Squamous Epith Cells (0-5/HPF) Ur Transition Epith Cell Ur Renal Epithelial Cell Calcium Oxalate Crystal Uric Acid Crystals Triple Phos Crystals Other Crystals Amorphous Sediment Urine Bacteria (None) Hyaline Casts Granular Casts RBC Casts WBC Casts Other Casts Urine Mucus Urine Trichomonas Urine Yeast Urine Sperm Ur Culture Indicated? Micro UA Comment Salicylates < 1.0 (<20) mg/dL U Opiates 300ng/mL cut (Negative) Ur Oxycodone Screen (Negative) Urine Methadone Screen (Negative) Acetaminophen < 10 (10-30) ug/mL Ur Barbiturates Screen (Negative) U Tricyclic Antidepress (Negative) Ur Phencyclidine Scrn (Negative) Ur Amphetamines Screen (Negative) U Methamphetamines Scrn (Negative) Ur MDMA Scrn (Ecstasy) (Negative) U Benzodiazepines Scrn (Negative) Urine Cocaine Screen (Negative) U Marijuana (THC) Screen (Negative) Ethyl Alcohol < 10 ( - 10) mg/dL SARS-CoV-2 (PCR) (Negative) 06/27/22 06/27/22 06/27/22 Range/Units 10:50 10:50 10:50 WBC (4.5-11.0) X10^3/uL RBC (4.5-5.9) X10^6/uL Hgb (13.5-17.5) g/dL Hct (41-53) % MCV (80-100) fL MCH (26-34) PG MCHC (30-36) % RDW (11.6-14.8) % Plt Count (150-400) X10^3/uL Neut % (Auto) (50-75) % Lymph % (Auto) (25-40) % [place] % (Auto) (3-14) % Eos % (Auto) (2-4) % Baso % (Auto) (0-2) % Neut # (Auto) (0178-5731) /uL Lymph # (Auto) (4583-0052) /uL [place] # (Auto) (0-900) /uL Eos # (Auto) (0-450) /uL Baso # (Auto) (0-100) /uL PT (10.1-12.7) SECONDS INR (0.9-1.3) APTT (26-36) SECONDS Sodium (137-145) mmol/L Potassium (3.4-5.1) mmol/L Chloride (98-107) mmol/L Carbon Dioxide (22-32) mmol/L BUN (9-20) mg/dL Creatinine (0.66-1.25) mg/dL Estimated GFR (>60) mL/min BUN/Creatinine Ratio (6-22) Glucose (70-100) mg/dL Lactate 0.9 (0.7-2.1) mmol/L Calcium (8.4-10.2) mg/dL Total Bilirubin (0.2-1.3) mg/dL AST (17-59) IU/L ALT (<50) IU/L Alkaline Phosphatase (38-126) U/L Ammonia < 9 L (9-30) umol/L Total Creatine Kinase (55-170) U/L CK-MB (CK-2) (<2.37) ng/mL CK-MB (CK-2) Rel Index (1.5-5.0) % Troponin I (0.01-0.034) ng/mL Total Protein (6.3-8.2) g/dL Albumin (3.5-5.0) g/dL Globulin (1.7-4.1) g/dL Albumin/Globulin Ratio (1.0-2.8) Procalcitonin (<0.5) ng/mL TSH 0.865 (0.47-4.68) uIU/mL Prolactin (3.7-17.9) ng/mL Urine Color Urine Appearance Urine pH (4.5-8.0) Ur Specific [place] (1.000-1.035) Urine Protein (Negative) Urine Glucose (UA) (Negative) g/dL Urine Ketones (NEGATIVE) Urine Occult Blood (Negative) Urine Nitrate (Negative) Urine Bilirubin (NEGATIVE) Urine Urobilinogen (0.2) E.U./dL Ur Leukocyte Esterase (NEGATIVE) Urine RBC (0-5/HPF) Urine WBC (0-5/HPF) Ur Squamous Epith Cells (0-5/HPF) Ur Transition Epith Cell Ur Renal Epithelial Cell Calcium Oxalate Crystal Uric Acid Crystals Triple Phos Crystals Other Crystals Amorphous Sediment Urine Bacteria (None) Hyaline Casts Granular Casts RBC Casts WBC Casts Other Casts Urine Mucus Urine Trichomonas Urine Yeast Urine Sperm Ur Culture Indicated? Micro UA Comment Salicylates (<20) mg/dL U Opiates 300ng/mL cut (Negative) Ur Oxycodone Screen (Negative) Urine Methadone Screen (Negative) Acetaminophen (10-30) ug/mL Ur Barbiturates Screen (Negative) U Tricyclic Antidepress (Negative) Ur Phencyclidine Scrn (Negative) Ur Amphetamines Screen (Negative) U Methamphetamines Scrn (Negative) Ur MDMA Scrn (Ecstasy) (Negative) U Benzodiazepines Scrn (Negative) Urine Cocaine Screen (Negative) U Marijuana (THC) Screen (Negative) Ethyl Alcohol ( - 10) mg/dL SARS-CoV-2 (PCR) (Negative) 06/27/22 06/27/22 06/27/22 Range/Units 11:40 14:45 14:45 WBC (4.5-11.0) X10^3/uL RBC (4.5-5.9) X10^6/uL Hgb (13.5-17.5) g/dL Hct (41-53) % MCV (80-100) fL MCH (26-34) PG MCHC (30-36) % RDW (11.6-14.8) % Plt Count (150-400) X10^3/uL Neut % (Auto) (50-75) % Lymph % (Auto) (25-40) % [place] % (Auto) (3-14) % Eos % (Auto) (2-4) % Baso % (Auto) (0-2) % Neut # (Auto) (6462-1251) /uL Lymph # (Auto) (0153-9753) /uL [place] # (Auto) (0-900) /uL Eos # (Auto) (0-450) /uL Baso # (Auto) (0-100) /uL PT (10.1-12.7) SECONDS INR (0.9-1.3) APTT (26-36) SECONDS Sodium (137-145) mmol/L Potassium (3.4-5.1) mmol/L Chloride (98-107) mmol/L Carbon Dioxide (22-32) mmol/L BUN (9-20) mg/dL Creatinine (0.66-1.25) mg/dL Estimated GFR (>60) mL/min BUN/Creatinine Ratio (6-22) Glucose (70-100) mg/dL Lactate (0.7-2.1) mmol/L Calcium (8.4-10.2) mg/dL Total Bilirubin (0.2-1.3) mg/dL AST (17-59) IU/L ALT (<50) IU/L Alkaline Phosphatase (38-126) U/L Ammonia (9-30) umol/L Total Creatine Kinase (55-170) U/L CK-MB (CK-2) (<2.37) ng/mL CK-MB (CK-2) Rel Index (1.5-5.0) % Troponin I (0.01-0.034) ng/mL Total Protein (6.3-8.2) g/dL Albumin (3.5-5.0) g/dL Globulin (1.7-4.1) g/dL Albumin/Globulin Ratio (1.0-2.8) Procalcitonin (<0.5) ng/mL TSH (0.47-4.68) uIU/mL Prolactin (3.7-17.9) ng/mL Urine Color Yellow Urine Appearance Clear Urine pH 6.0 (4.5-8.0) Ur Specific [place] <=1.005 (1.000-1.035) Urine Protein Negative (Negative) Urine Glucose (UA) Negative (Negative) g/dL Urine Ketones Negative (NEGATIVE) Urine Occult Blood Negative (Negative) Urine Nitrate Negative (Negative) Urine Bilirubin Negative (NEGATIVE) Urine Urobilinogen 0.2 (0.2) E.U./dL Ur Leukocyte Esterase Negative (NEGATIVE) Urine RBC None seen (0-5/HPF) Urine WBC 0-1/hpf (0-5/HPF) Ur Squamous Epith Cells 0-1 /hpf (0-5/HPF) Ur Transition Epith Cell Ur Renal Epithelial Cell Calcium Oxalate Crystal Uric Acid Crystals Triple Phos Crystals Other Crystals Amorphous Sediment Urine Bacteria None seen (None) Hyaline Casts Granular Casts RBC Casts WBC Casts Other Casts Urine Mucus Urine Trichomonas Urine Yeast Urine Sperm Ur Culture Indicated? Cult not indicated Micro UA Comment Salicylates (<20) mg/dL U Opiates 300ng/mL cut Negative (Negative) Ur Oxycodone Screen Negative (Negative) Urine Methadone Screen Negative (Negative) Acetaminophen (10-30) ug/mL Ur Barbiturates Screen Negative (Negative) U Tricyclic Antidepress Negative (Negative) Ur Phencyclidine Scrn Negative (Negative) Ur Amphetamines Screen Negative (Negative) U Methamphetamines Scrn Negative (Negative) Ur MDMA Scrn (Ecstasy) Negative (Negative) U Benzodiazepines Scrn Positive H (Negative) Urine Cocaine Screen Negative (Negative) U Marijuana (THC) Screen Positive H (Negative) Ethyl Alcohol ( - 10) mg/dL SARS-CoV-2 (PCR) Negative (Negative) 06/27/22 Range/Units 14:45 WBC (4.5-11.0) X10^3/uL RBC (4.5-5.9) X10^6/uL Hgb (13.5-17.5) g/dL Hct (41-53) % MCV (80-100) fL MCH (26-34) PG MCHC (30-36) % RDW (11.6-14.8) % Plt Count (150-400) X10^3/uL Neut % (Auto) (50-75) % Lymph % (Auto) (25-40) % [place] % (Auto) (3-14) % Eos % (Auto) (2-4) % Baso % (Auto) (0-2) % Neut # (Auto) (8664-1157) /uL Lymph # (Auto) (6153-4550) /uL [place] # (Auto) (0-900) /uL Eos # (Auto) (0-450) /uL Baso # (Auto) (0-100) /uL PT (10.1-12.7) SECONDS INR (0.9-1.3) APTT (26-36) SECONDS Sodium (137-145) mmol/L Potassium (3.4-5.1) mmol/L Chloride (98-107) mmol/L Carbon Dioxide (22-32) mmol/L BUN (9-20) mg/dL Creatinine (0.66-1.25) mg/dL Estimated GFR (>60) mL/min BUN/Creatinine Ratio (6-22) Glucose (70-100) mg/dL Lactate (0.7-2.1) mmol/L Calcium (8.4-10.2) mg/dL Total Bilirubin (0.2-1.3) mg/dL AST (17-59) IU/L ALT (<50) IU/L Alkaline Phosphatase (38-126) U/L Ammonia (9-30) umol/L Total Creatine Kinase (55-170) U/L CK-MB (CK-2) (<2.37) ng/mL CK-MB (CK-2) Rel Index (1.5-5.0) % Troponin I (0.01-0.034) ng/mL Total Protein (6.3-8.2) g/dL Albumin (3.5-5.0) g/dL Globulin (1.7-4.1) g/dL Albumin/Globulin Ratio (1.0-2.8) Procalcitonin (<0.5) ng/mL TSH (0.47-4.68) uIU/mL Prolactin (3.7-17.9) ng/mL Urine Color Cancelled Urine Appearance Cancelled Urine pH Cancelled (4.5-8.0) Ur Specific [place] Cancelled (1.000-1.035) Urine Protein Cancelled (Negative) Urine Glucose (UA) Cancelled (Negative) g/dL Urine Ketones Cancelled (NEGATIVE) Urine Occult Blood Cancelled (Negative) Urine Nitrate Cancelled (Negative) Urine Bilirubin Cancelled (NEGATIVE) Urine Urobilinogen Cancelled (0.2) E.U./dL Ur Leukocyte Esterase Cancelled (NEGATIVE) Urine RBC Cancelled (0-5/HPF) Urine WBC Cancelled (0-5/HPF) Ur Squamous Epith Cells Cancelled (0-5/HPF) Ur Transition Epith Cell Cancelled Ur Renal Epithelial Cell Cancelled Calcium Oxalate Crystal Cancelled Uric Acid Crystals Cancelled Triple Phos Crystals Cancelled Other Crystals Cancelled Amorphous Sediment Cancelled Urine Bacteria Cancelled (None) Hyaline Casts Cancelled Granular Casts Cancelled RBC Casts Cancelled WBC Casts Cancelled Other Casts Cancelled Urine Mucus Cancelled Urine Trichomonas Cancelled Urine Yeast Cancelled Urine Sperm Cancelled Ur Culture Indicated? Cancelled Micro UA Comment Cancelled Salicylates (<20) mg/dL U Opiates 300ng/mL cut (Negative) Ur Oxycodone Screen (Negative) Urine Methadone Screen (Negative) Acetaminophen (10-30) ug/mL Ur Barbiturates Screen (Negative) U Tricyclic Antidepress (Negative) Ur Phencyclidine Scrn (Negative) Ur Amphetamines Screen (Negative) U Methamphetamines Scrn (Negative) Ur MDMA Scrn (Ecstasy) (Negative) U Benzodiazepines Scrn (Negative) Urine Cocaine Screen (Negative) U Marijuana (THC) Screen (Negative) Ethyl Alcohol ( - 10) mg/dL SARS-CoV-2 (PCR) (Negative) Point of Care Testing Glucose POC [address] scan - head: Radiologist's Impression: PROCEDURE:? CT STROKE ? INDICATIONS:? left hemiparesis ? TECHNIQUE:? Noncontrast 4.5 mm thick angled axial sections acquired from the foramen magnum to the vertex, with coronal reformats.? For radiation dose reduction, the following was used:? automated exposure control, adjustment of mA and/or kV according to patient size.? ? COMPARISON:? [facility], CT, CT STROKE, 06/18/2021, 6:47. ? FINDINGS:? Image quality:? Excellent.? ? CSF spaces:? Basal cisterns are patent.? No extra-axial fluid collections.? Ventricles are normal in size and shape.? ? Brain:? No midline shift.? No intracranial masses or hemorrhage.? Bustillo-white matter interface is normal.? Large focus of encephalomalacia in the right frontal lobe, consistent with prior infarct. ? Skull and face:? Calvarium and visualized facial bones are intact, without suspicious lesions.? ? Sinuses:? Visualized sinuses and mastoids are clear.? ? IMPRESSION:? 1. No evidence of hemorrhagic infarct . 2. Sequela of right MCA territory infarct. ? Dr. Mills spoke with Dr. Trivedi at 10:52 a.m. on 06/27/2022. ? This study fulfills neurological imaging criteria for inclusion or exclusion of acute stroke therapies based on available published neurological imaging guidelines.? ? ? Dictated by: Gene Figueroa M.D. on 06/27/2022 at 10:49 ? ? Approved by: Gene Figueroa M.D. on 06/27/2022 at 10:53 ? CTA - brain/neck: Radiologist's Impression: PROCEDURE:? CT ANGIO HEAD AND NECK ? INDICATIONS:? left hemiparesis ? TECHNIQUE:? After the administration of intravenous contrast, 1 mm thick sections acquired from the aortic arch through the [place].? Post-contrast 4.5 mm thick sections then re-acquired from the foramen magnum to the vertex.? 3-dimensional mlqmstn-teoielsiz-aqrliuymiy (MIP) and/or volume rendering reformats were acquired of the central intracranial vasculature and neck separately. For radiation dose reduction, the following was used:? automated exposure control, adjustment of mA and/or kV according to patient size.? ? COMPARISON:? [facility], CT, CT STROKE, 06/27/2022, 10:36.? [facility], CT, CT ANGIO HEAD AND NECK, 06/18/2021, 6:47. ? FINDINGS:? Image quality:? Excellent.? ? BRAIN:? CSF spaces:? Ventricles are normal in size and shape.? Basal cisterns are patent.? No extra-axial fluid collections.? ? Brain:? No midline shift.? No intracranial bleeds or masses.? Stable large infarct in the right frontal lobe. ? Skull and face:? Calvarium and facial bones appear intact, without suspicious lesions.? Orbits appear normal.? ? Sinuses:? Sinuses and mastoids are clear.? ? HEAD CT ANGIOGRAPHY:? Anterior circulation:? 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 The flow within the paired anterior cerebral arteries is normal and symmetric.? The flow within the middle cerebral arteries is patent.? Left MCA is dominant.? The anterior communicating artery is seen.? No aneurysms are seen.? ? Posterior circulation:? Visualized portions of the vertebral arteries demonstrate normal caliber, and join to form a normal appearing basilar artery.? Flow within the posterior cerebral arteries is normal and symmetric.? No aneurysms are seen.? ? NECK CT ANGIOGRAPHY:? Carotid system:? The great vessels demonstrate a conventional anatomy as they arise from the aortic arch.? The origins of the common carotid arteries appear patent.? The common carotid arteries demonstrate normal caliber and courses.? 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 Dense plaque at the carotid bulbs.? Collateral flow at the MCAs. ? Posterior circulation:? The origins of the vertebral arteries both appear widely patent.? The more superior extracranial portions of both vertebral arteries also demonstrate normal courses and calibers.? High-grade stenoses of the bilateral V4 vertebral arteries due to calcified atherosclerotic plaque.? They join to form a normal appearing basilar artery.? ? Soft tissues:? Visualized neck soft tissues demonstrate no suspicious abnormalities.? ? Bones:? No suspicious bony lesions.? Visualized cervical spine appears normally aligned.? IMPRESSION:? 1. Unchanged occlusion of the bilateral ICA.? No new intracranial occlusion demonstrated. ? 2. Stable right frontal lobe large infarct. ? 3. 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 ? Any quantitative measurements of stenosis were performed using NASCET criteria.? ? ? Dictated by: Ismael Irizarry M.D. on 06/27/2022 at 11:11 ? ? MR: Radiologist's Impression: PROCEDURE:? MR HEAD/BRAIN WO CON ? INDICATIONS:? possible recurrent cva ? TECHNIQUE:? Non-contrast axial T1 spin echo, axial T2 fast spin echo, sagittal and axial FLAIR, coronal T2 fast spin echo, axial gradient echo, axial diffusion and ADC through the brain.? ? COMPARISON:? [facility], , MR HEAD/BRAIN WO CON, 06/18/2021, 7:57. ? FINDINGS:? Image quality:? Excellent.? ? CSF spaces:? Ventricles appear symmetric in size and shape.? Basal cisterns are patent.? No extra-axial fluid collections.? ? Brain:? No intracranial bleeds or mass effects.? There is cerebral volume loss for age.? There are mild periventricular and deep white matter chronic small vessel ischemic changes.? Brainstem appears normal.? Diffusion-weighted images show no acute ischemic insults.? Moderately large old right MCA distribution frontal lobe infarct with encephalomalacia.? Normal intravascular flow voids are present.? ? Skull and face:? Calvarial bone marrow is normal in signal.? Orbits are normal.? ? Sinuses:? Sinuses and mastoids are clear.? ? IMPRESSION:? ? 1. Moderately large old right MCA distribution frontal infarct with encephalomalacia. ? 2. Mild small vessel ischemic change. ? 3.? No evidence of acute stroke, hemorrhage, or mass. ? Dictated by: Pavel Arauz M.D. on 06/27/2022 at 15:32 ? ? Approved by: Pavel Arauz M.D. on 06/27/2022 at 15:35 ? ECG Data Interpretation: Normal sinus rhythm rate 57 AR interval 178 QRS [address] changes persistent T-wave inversion noted in lead 2 similar to prior EKG 2. Rhythm PVCs noted artifact there is a sinus eat with a P-wave noted in lead [address] changes I suspect artifact for other MDM Narrative Medical decision making narrative: Patient is 57-year-old male history of stroke causing left-sided weakness. Today patient was found down. Last known well is unknown not a candidate for tPA. He reports being dizzy and falling overall poor historian. Difficult to tell on exam what is old and what is new. However his symptoms do improve while in the emergency department. Blood work does not show any electrolyte abnormality no significant leukocytosis prolactin is 4.6 unlikely to have had a seizure procalcitonin is also-2 troponins are negative. EMS does report a glucose of 70 a glucose seems stabilized here. It is 88 on the blood work now. Patient was extremities were initially called to touch but his core was warm. No obvious hypothermia nonetheless he was placed under a Nereida Hugger and warmed up. Dr. Thomas hospitalist consulted for admission possible TIA versus CVA versus hypoglycemia at this time she requests speaking to [employer] prior to admission and specifically asked about dual antiplatelet therapy [employer] consulted. No need for video. She reports that she agrees this is unlikely to be an acute stroke and this is probably all old. Does not recommend dual antiplatelet at this time. Request MRI be done if MRI is positive then possibly dual platelet however aspirin only for now. Also possible seizure low threshold to start Keppra. Dr. Thomas accepts patient Patient going to MRI 1st Patient any ED continues monitoring has shivering possible artifact versus arrhythmia on the monitor I suspect artifact. Discharge Plan Departure Patient Disposition: Admitted as Observation Clinical Impression: Brain TIA Admit Date/Time: 06/27/22 16:01 Admit Provider: Keyona Thomas
--- NOTE | 2022-06-27 10:44 | DI.RAD.S_ITS ---
PROCEDURE: XR CHEST 1V INDICATIONS: confusion TECHNIQUE: One view of the chest was acquired. COMPARISON: [facility], CT, CT ANGIO HEAD AND NECK, 06/27/2022, 10:41. [facility], CR, XR CHEST 1V, 10/06/2021, 6:33. [facility], CR, XR CHEST 1V, 07/05/2021, 10:17. FINDINGS: Surgical changes and devices: Aortic valve replacement. Post median sternotomy and CABG. Lungs and pleura: Mild streaky opacity in the left lung, unchanged. No pleural effusions or pneumothorax. Mediastinum: Mediastinal contours appear normal. Heart size is prominent. Bones and chest wall: No suspicious bony lesions. Prior left clavicle healed fracture. Overlying soft tissues appear unremarkable. IMPRESSION: Mild streaky opacity in the left lung is unchanged. This could be due to scarring or atelectasis. Dictated by: Ismael Irizarry M.D. on 06/27/2022 at 11:28 Approved by: Ismael Irizarry M.D. on 06/27/2022 at 11:30
[2022-06-27 11:07] LABS: Add Manual Diff / Slide Review NO; Basophils Absolute Auto 0 /uL (0-100); Eosinophils Absolute Auto 200 /uL (0-450); Eosinophils Percent Auto 5.2 % (2-4); Hemoglobin 13.9 g/dL (13.5-17.5); Lymphocytes Absolute Auto 1400 /uL (1100-4500); Lymphocytes Percent Auto 32.7 % (25-40); Mean Corpuscular HGB Conc 33.9 % (30-36); Mean Corpuscular Hemoglobin 31.1 PG (26-34); Mean Corpuscular Volume 91.7 fL (80-100); Monocytes Absolute Auto 300 /uL (0-900); Neutrophils Absolute Auto 2300 /uL (1500-7000); Neutrophils Percent Auto 55.1 % (50-75); Platelet Count 156 X10^3/uL (150-400); Red Blood Cell Count 4.47 X10^6/uL (4.5-5.9); Red Cell Distribution Width 12.7 % (11.6-14.8); White Blood Cell Count 4.2 X10^3/uL (4.5-11.0)
[2022-06-27 11:12] LABS: Prothrombin Time 11.9 SECONDS (10.1-12.7)
[2022-06-27 11:14] LABS: PTT Partial Thromboplastin Tim 30 SECONDS (26-36)
[2022-06-27 11:16] LABS: Ammonia (NH3) < 9 umol/L (9-30)
[2022-06-27 11:19] LABS: Acetaminophen < 10 ug/mL (10-30); Alanine Aminotransferase 24 IU/L (<50); Albumin 4.2 g/dL (3.5-5.0); Albumin Globulin Ratio 1.6 (1.0-2.8); Alkaline Phosphatase 45 U/L (38-126); Aspartate Aminotransferase 20 IU/L (17-59); BUN Creatinine Ratio 16.7 (6-22); Bilirubin Total 0.4 mg/dL (0.2-1.3); Blood Urea Nitrogen 14 mg/dL (9-20); Calcium 8.6 mg/dL (8.4-10.2); Carbon Dioxide 28 mmol/L (22-32); Chloride 108 mmol/L (98-107); Creatine Kinase 109 U/L (55-170); Estimated Glomerular Filt Rate > 60 mL/min (>60); Ethanol (ETOH) < 10 mg/dL; Globulin 2.6 g/dL (1.7-4.1); Glucose 88 mg/dL (70-100); HEMOLYSIS < 15 (0-50); Potassium 4.5 mmol/L (3.4-5.1); Salicylate < 1.0 mg/dL (<20); Sodium 141 mmol/L (137-145); Total Protein 6.8 g/dL (6.3-8.2)
[2022-06-27 11:30] LABS: Troponin I < 0.012 ng/mL (0.01-0.034)
[2022-06-27 11:34] LABS: CKMB % Relative Index 0.9 % (1.5-5.0); Creatine Kinase MB 0.97 ng/mL (<2.37); Procalcitonin < 0.03 ng/mL (<0.5)
[2022-06-27 11:37] LABS: Prolactin 4.6 ng/mL (3.7-17.9)
[2022-06-27] MEDS: SODIUM CHLORIDE 0.9% 1,000 ML 1000 ML IV (11:40)
[2022-06-27 11:48] LABS: Thyroid Stimulating Hormone 0.865 uIU/mL (0.47-4.68)
[2022-06-27 11:56] LABS: Lactate (Lactic Acid) 0.9 mmol/L (0.7-2.1)
[2022-06-27 12:03] LABS: COVID19 -Nasal RAPID Negative (Negative)
--- NOTE | 2022-06-27 12:17 | PC.NURSE ---
Pt is eating and drinking on his own
--- NOTE | 2022-06-27 12:20 | PC.NURSE ---
Pt has a hx of CVA with L sided deficits. Small abrasion noted to his L knee. Bear hugger applied
[2022-06-27] MEDS: SODIUM CHLORIDE 0.9% 1,000 ML 150 ML IV (13:00)
--- NOTE | 2022-06-27 13:03 | DI.MRI.S_ITS ---
PROCEDURE: MR HEAD/BRAIN WO CON INDICATIONS: possible recurrent cva TECHNIQUE: Non-contrast axial T1 spin echo, axial T2 fast spin echo, sagittal and axial FLAIR, coronal T2 fast spin echo, axial gradient echo, axial diffusion and ADC through the brain. COMPARISON: [facility], , MR HEAD/BRAIN WO CON, 06/18/2021, 7:57. FINDINGS: Image quality: Excellent. CSF spaces: Ventricles appear symmetric in size and shape. Basal cisterns are patent. No extra-axial fluid collections. Brain: No intracranial bleeds or mass effects. There is cerebral volume loss for age. There are mild periventricular and deep white matter chronic small vessel ischemic changes. Brainstem appears normal. Diffusion-weighted images show no acute ischemic insults. Moderately large old right MCA distribution frontal lobe infarct with encephalomalacia. Normal intravascular flow voids are present. Skull and face: Calvarial bone marrow is normal in signal. Orbits are normal. Sinuses: Sinuses and mastoids are clear. IMPRESSION: 1. Moderately large old right MCA distribution frontal infarct with encephalomalacia. 2. Mild small vessel ischemic change. 3. No evidence of acute stroke, hemorrhage, or mass. Dictated by: Pavel Arauz M.D. on 06/27/2022 at 15:32 Approved by: Pavel Arauz M.D. on 06/27/2022 at 15:35
[2022-06-27] MEDS: ALPRAZolam 0.25 MG TABLET PO (13:47)
--- NOTE | 2022-06-27 13:49 | CM.DANOTE ---
Patient is a 57 yo male who was admitted to ED on 06/27/22 for Code Stroke. Pt has [facility] for insurance and his PCP is Dr. Trent Gutiérrez. EMR was reviewed. Per ED MD, pt was found down in the community with confusion and EMS was called and pt brought to the ED for stroke workup. Awaiting further imaging for CVA vs TIA and likely to be admitted Observation. Pt was last admitted 06/18/21 last year for CVA and was able to d/c home with mother. SW met bedside with pt in the ED in anticipation of admission and pt able to participate in discussion, with slow speech, and confirms he still lives with his 79 yo mom in [place] in an apartment and states he is independent with ADLs, does not use any DME for ambulation, cooks his own meals. He was a enciso years ago and at this time, he is on disability, and gets too much a month to qualify for Medicaid. Pt does not drive but typically walks or uses public transportation and his mother rarely drives either as she knows she isn't safe doing it at her age. Pt confirms he is established with Psychiatrist Dr. Delcid for bipolar and med management. Pt states he smokes marijuana to self medicate for his chronic back pain and confirms he smoked marijuana prior to his fall and states this could have contributed to his confusion and inability to get up. Pt denies any other illegal substances. Pt denies any hx of HH or SNF and denies any other supportive services in place. Pt was agreeable with SW contacting his mother but the number listed for her goes straight to a full voicemail box and pt states he does not know any other phone number for her and denies any other local family or friends. Plan: SW to follow closely for likely admission for CVA vs TIA r/o and likely PT eval to confirm safe d/c home with mother and any other identified needs. Pt's mother paid for taxi ride home at discharge last year when pt was stable to leave the hospital. ROLF Nuñez Discharge Planning/Care Management CM Discharge Assessment Start: 06/27/22 13:45 Freq: Status: Active Protocol: Document 06/27/22 13:45 BF (Rec: 06/27/22 13:48 BF [id number]) Discharge Planning Assessment Assigned [employer] ROLF Gregg DPOA/Assigned Designee Name mother informally Contact Information [place] [phone]? Advance Directives? No Advance Directives on File No History Provided By Patient,Medical Record Has Patient been admitted in last 30 No days? Comment last admisson 06/18/21 for CVA Prior Living Arrangements Apartment/Condo Household Members family Comment Pt lives with 79 yo mother Type of transporation used prior to Relies on Others admit Independent with ADL's Yes: mostly Is patient alert and oriented? Yes: mostly Needs Assistance With Managing Medications,Home Chores / Shopping Caregiver for Another No Comment r/o HH pending likely PT eval Barriers to Discharge No Comment If patient is in need of rehab , his behaviors and mental health history will be a barrier. Discharge Plan Home Transportation Arrangement Might need taxi private pay from mother as she doesn't drive Referrals Initiated Other Additional Comment Will depend upon how patient does with therapy Review Status In Process Please Provide Date Initial DC 06/27/22 Assessment Was Performed Next Review Type Continued Stay Review
--- NOTE | 2022-06-27 14:51 | PC.NURSE ---
Pt still appears drowsy but is able to stand up on his own and urinate along with eating and drinking on his own
[2022-06-27 15:14] LABS: Appearance Urine UA CLEAR; Bilirubin Urine UA NEGATIVE (NEGATIVE); Color Urine UA YELLOW; Glucose Urine UA NEGATIVE (Negative); Ketones Urine UA NEGATIVE (NEGATIVE); Leukocyte Esterase Urine UA NEGATIVE (NEGATIVE); Nitrite Urine UA NEGATIVE (Negative); Occult Blood Urine UA NEGATIVE (Negative); Protein Urine UA NEGATIVE (Negative); Specific Gravity Urine UA <=1.005 (1.000-1.035); Urobilinogen Urine UA 0.2 E.U./dL (0.2)
[2022-06-27 15:21] LABS: Ur Creatinine Normal (Normal); Ur Specific Gravity Normal (Normal); Urine pH Normal (Normal)
[2022-06-27 15:22] LABS: UR Morphine/Opiate cutoff 300 Negative (Negative); Urine Amphetamines Negative (Negative); Urine Barbiturates Negative (Negative); Urine Benzodiazepines Positive (Negative); Urine Cocaine Negative (Negative); Urine MDMA Negative (Negative); Urine Methadone Negative (Negative); Urine Methamphetamines Negative (Negative); Urine Oxycodone Negative (Negative); Urine Phencyclidine Negative (Negative); Urine Tetrahydrocannabinol Positive (Negative); Urine Tricyclic Antidepressant Negative (Negative)
[2022-06-27 15:28] LABS: Bacteria Urine None Seen; Culture Indicated Urine Cult Not Indicated; RBC Urine None Seen (0-5/HPF); Squamous Epithelial Cell Urine 0-1 /HPF (0-5/HPF); WBC Urine 0-1/HPF (0-5/HPF)
--- NOTE | 2022-06-27 16:17 | PC.NURSE ---
Pt was shivering and the bedside tele monitor read HR up to 200s. EKG was obtained and given to Dr. Trivedi. RT preforming EKG stated he believes that number was false and picking up on the pt shivering
[2022-06-27 16:38] LABS: Lactate (Lactic Acid) 0.8 mmol/L (0.7-2.1)
[2022-06-27 16:50] LABS: Troponin I < 0.012 ng/mL (0.01-0.034)
[2022-06-27] MEDS: SODIUM CHLORIDE 0.9% 1,000 ML 100 ML IV ×2 (17:01→22:27)
[2022-06-27] MEDS: ACETAMINOPHEN 325 MG TABLET 650 MG PO (17:03)
--- NOTE | 2022-06-27 18:01 | PM.HP.1 ---
History of Present Illness History of Present Illness Chief complaint: Code Stroke Narrative: 57-year-old gentleman with coronary artery disease status post CABG, hypertension, hyperlipidemia, as well as 2 strokes with residual left-sided weakness, ongoing tobacco dependence, as well as history of bipolar disorder who was brought into the emergency department today via EMS after being found down outside. At the time of arrival, he was unable to tell much to the emergency room physician. However, he is now able to tell me that he had been on his couch watching TV earlier this morning. Got up to go to the store to buy cigarettes. He states he felt dizzy prior to falling. He denies having been short of breath or having chest pain. He states there was a woman nearby who witnessed his fall. States she called 911 and stayed with him until paramedics arrived. He was able to crawl back to the curb but felt too weak to get up. Estimates his downtime to have been about 20 minutes. He knows this has happened on a couple of occasions in his home as well where he has become dizzy and fallen. He reports he typically walks rather slow due to his deficits from his stroke. He does not use a cane or walker. He states that his left foot drags and he has persistent left hand weakness. Reports no history of seizures. He has not missed any of his medications. Does report an episode a few weeks ago of having chest pain. He notes he has a follow-up appointment with his respiratory equipment assistant on July 17 for recheck. He states getting occasional chest pain is pretty typical for him. The only new symptom he has had recently is notes that he has been having some coughing/choking on solid food over the last couple of days. In the emergency department, he was initially hypothermic at 94.1. Heart rate was 48, respiratory rate was 10, BP was 164/86, O2 saturation was 98%. Subsequently, his body temperature is improved as did his heart rate and respiratory rate. Laboratories revealed a white blood cell count of 4.2, hemoglobin of 13.9, hematocrit 41.0, platelets 156. Coags were within normal limits. Chemistry panel was within normal limits with the exception of a mildly elevated chloride at 108. Lactate was normal at 0.9. On follow-up it was 0.8. Ammonia was less than 9. Cardiac enzymes revealed a CPK of 109, CK-MB of 0.97, troponin I of less than 0.012. On recheck his troponin remained within normal limits. LFTs were within normal limits. Procalcitonin less than 0.03. TSH and prolactin were also normal. UA was completely normal. Chest x-ray revealed mild streaky opacity in the left lung which was unchanged, felt to be due to scarring or atelectasis. CT of the head revealed no evidence of hemorrhage, and noted sequelae of right MCA territory infarct. CTA of the head and neck revealed unchanged occlusion of bilateral internal carotid arteries. No new intracranial occlusion demonstrated. Stable right frontal lobe large infarct. Stable high-grade stenosis of the bilateral V4 vertebral arteries. MRI revealed moderately large old right MCA distribution frontal infarct with encephalomalacia, mild small-vessel ischemic change, no evidence of acute stroke, hemorrhage, or mass. While in the emergency department, he received 2 L of IV fluids, a single dose of alprazolam 0.25 mg prior to imaging study. Admission was recommended. Currently patient's only complaint is of a mild headache, which he reports is typical for him. 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) Tobacco use Surgical History H/O valvuloplasty S/P CABG x 4 Comment: Additional past medical history: Ischemic cardiomyopathy with ejection fraction of 25-30% Family & Social History Family History Grandfather Heart attack Family/Other Heart attack Social History: household members family Prior Living Arrangements Apartment/Condo Safety & Behavioral: Feels Safe in Current Yes Environment Been Physically Hurt or No Threatened By a Person Tobacco & Substance use: Tobacco type cigarettes Smoking Status Current every day smoker alcohol intake former alcohol intake frequency other Substance Use Type marijuana Comment: Patient reports he is cutting down with smoking and currently smokes 1/2 pack per day of cigarettes. No alcohol use. Denies any recreational substance use. Meds Home Medications and Allergies Home Medications Medication Instructions Recorded Confirmed Type lisinopril 20 mg tablet 20 mg PO DAILY 07/15/18 12/30/21 History atorvastatin 80 mg tablet 80 mg PO BEDTIME 01/23/20 12/30/21 History metoprolol succinate 25 mg capsule 25 mg PO DAILY 01/23/20 12/30/21 History sprinkle, ext. release 24 hr aspirin 81 mg tablet,delayed 81 mg PO DAILY #30 tabs 06/20/21 12/30/21 Rx release spironolactone 25 mg tablet 12.5 mg PO DAILY 07/04/21 12/30/21 History tamsulosin 0.4 mg capsule 0.4 mg PO DAILY 07/04/21 12/30/21 History alprazolam 0.5 mg tablet 0.5 mg PO ONCE 30 min prior to 10/09/21 12/30/21 Rx procedure #1 tab albuterol sulfate 90 mcg/actuation 2 inh inhalation Q4-6H PRN 12/30/21 12/30/21 Rx aerosol inhaler shortness of breath or wheezing #6.7 grams azithromycin 250 mg tablet See Rx Instructions PO .COMPLEX #6 12/30/21 12/30/21 Rx tabs benzonatate 100 mg capsule 100 mg PO BID-TID PRN cough #30 12/30/21 12/30/21 Rx caps naproxen sodium 220 mg tablet 220 mg PO BID PRN pain #60 tabs 12/30/21 12/30/21 Rx (Aleve) gabapentin 400 mg capsule 400 mg PO TID #90 caps 03/24/22 Rx hydroxyzine pamoate 25 mg capsule See Rx Instructions .Route 04/24/22 Rx .COMPLEX #180 caps olanzapine 20 mg tablet 20 mg PO BEDTIME #30 tabs 05/26/22 Rx diazepam 5 mg tablet 5 mg PO BID #60 tabs 05/27/22 Rx bupropion HCl 150 mg 24 hr tablet, 450 mg PO QAM #90 tabs 06/20/22 Rx extended release Allergies Allergy/AdvReac Type Severity Reaction Status Date / Time No Known Drug Allergies Allergy Verified 12/30/21 16:24 Review of Systems Review of Systems Narrative: All other systems were reviewed negative Exam Vital Signs (past 8 hours): - 06/27/22 10:34 06/27/22 11:22 06/27/22 11:30 Temperature 94.1 F L Pulse Rate 48 L 52 L 49 L Respiratory Rate 10 L 8 L Blood Pressure 164/86 H Pulse Oximetry 98 98 98 Oxygen Delivery Method Room Air Oxygen Flow Rate 06/27/22 11:31 06/27/22 11:31 06/27/22 11:45 Temperature Pulse Rate 48 L 48 L Respiratory Rate 8 L Blood Pressure 158/74 H Pulse Oximetry 97 99 Oxygen Delivery Method Room Air Oxygen Flow Rate 06/27/22 11:45 06/27/22 12:00 06/27/22 12:00 Temperature Pulse Rate 51 L Respiratory Rate 15 Blood Pressure 166/79 H 166/78 H Pulse Oximetry 99 Oxygen Delivery Method Oxygen Flow Rate 06/27/22 12:15 06/27/22 12:15 06/27/22 12:30 Temperature Pulse Rate 59 L Respiratory Rate 17 Blood Pressure 182/76 H 163/77 H Pulse Oximetry 99 Oxygen Delivery Method Oxygen Flow Rate 06/27/22 12:30 06/27/22 12:46 06/27/22 12:46 Temperature Pulse Rate 46 L 56 L Respiratory Rate 9 L 18 Blood Pressure 139/66 Pulse Oximetry 100 99 Oxygen Delivery Method Oxygen Flow Rate 06/27/22 13:00 06/27/22 13:00 06/27/22 13:15 Temperature Pulse Rate 50 L Respiratory Rate 10 L Blood Pressure 138/69 124/65 Pulse Oximetry 99 Oxygen Delivery Method Oxygen Flow Rate 06/27/22 13:15 06/27/22 13:30 06/27/22 13:30 Temperature Pulse Rate 51 L 50 L Respiratory Rate 12 9 L Blood Pressure 107/60 Pulse Oximetry 97 98 Oxygen Delivery Method Oxygen Flow Rate 06/27/22 13:45 06/27/22 13:45 06/27/22 14:00 Temperature Pulse Rate 51 L Respiratory Rate 11 L Blood Pressure 116/64 107/60 Pulse Oximetry 97 Oxygen Delivery Method Oxygen Flow Rate 06/27/22 14:00 06/27/22 14:15 06/27/22 14:15 Temperature Pulse Rate 52 L 52 L Respiratory Rate 10 L 9 L Blood Pressure 134/68 Pulse Oximetry 98 98 Oxygen Delivery Method Oxygen Flow Rate 06/27/22 15:33 06/27/22 15:34 06/27/22 15:34 Temperature 96.5 F L Pulse Rate 57 L 57 L Respiratory Rate Blood Pressure 203/98 H Pulse Oximetry 99 99 Oxygen Delivery Method Oxygen Flow Rate 06/27/22 15:46 06/27/22 15:46 06/27/22 16:00 Temperature Pulse Rate 69 Respiratory Rate 13 Blood Pressure 206/92 H Pulse Oximetry Oxygen Delivery Method Oxygen Flow Rate 06/27/22 16:06 06/27/22 16:12 06/27/22 16:12 Temperature Pulse Rate 55 L 53 L Respiratory Rate 13 20 Blood Pressure 140/70 Pulse Oximetry 98 100 Oxygen Delivery Method Room Air Oxygen Flow Rate 06/27/22 16:53 Temperature 96.8 F L Pulse Rate 59 L Respiratory Rate 18 Blood Pressure 125/45 L Pulse Oximetry 96 Oxygen Delivery Method Oxygen Flow Rate 0 Oxygen Delivery Method Room Air Oxygen Flow Rate 0 Narrative Exam Narrative: GEN: Chronically ill-appearing middle-aged male, Alert and oriented x3, mildly dysarthric, no acute distress HEENT: Normocephalic, mild left-sided facial droop, pupils equal round reactive to light, extraocular movements intact, sclerae anicteric, conjunctiva clear, nares patent, oropharynx reveals an intact soft and hard palate with moist mucous membranes, dentition is fair to poor NECK: Supple, no lymphadenopathy, thyroid without enlargement or nodularity, carotids no bruits CHEST: Respiratory excursions symmetric, clear to auscultation bilaterally CV: Regular rate and rhythm, no murmurs, rubs, gallops, PMI can not be palpated ABD: Soft, nontender, nondistended, bowel sounds present in all 4 quadrants, body habitus limits exam EXTR: Warm, well perfused, no clubbing/cyanosis/edema SKIN: Warm and dry, without rash NEURO: Alert and oriented x3, as noted, left-sided facial droop but intact sensation to the face, diminished sensation to the left upper extremity and left lower extremity, mild weakness noted to both the left upper and left lower extremities PSYCH: Mood and affect is within normal limits, judgment and insight are appropriate Objective Labs 06/27/22 10:50 06/27/22 10:50 Labs: Laboratory Results - last 24 hr 06/27/22 06/27/22 06/27/22 10:50 10:50 10:50 WBC 4.2 L RBC 4.47 L Hgb 13.9 Hct 41.0 MCV 91.7 MCH 31.1 MCHC 33.9 RDW 12.7 Plt Count 156 Neut % (Auto) 55.1 Lymph % (Auto) 32.7 [place] % (Auto) 6.0 Eos % (Auto) 5.2 H Baso % (Auto) 1.0 Neut # (Auto) 2300 Lymph # (Auto) 1400 [place] # (Auto) 300 Eos # (Auto) 200 Baso # (Auto) 0 PT 11.9 INR 1.0 APTT 30 Sodium 141 Potassium 4.5 Chloride 108 H Carbon Dioxide 28 BUN 14 Creatinine 0.84 Estimated GFR > 60 BUN/Creatinine Ratio 16.7 Glucose 88 Lactate Calcium 8.6 Total Bilirubin 0.4 AST 20 ALT 24 Alkaline Phosphatase 45 Ammonia Total Creatine Kinase 109 CK-MB (CK-2) 0.97 CK-MB (CK-2) Rel Index 0.9 L Troponin I < 0.012 Total Protein 6.8 Albumin 4.2 Globulin 2.6 Albumin/Globulin Ratio 1.6 Procalcitonin < 0.03 TSH Prolactin 4.6 Urine Color Urine Appearance Urine pH Ur Specific [place] Urine Protein Urine Glucose (UA) Urine Ketones Urine Occult Blood Urine Nitrate Urine Bilirubin Urine Urobilinogen Ur Leukocyte Esterase Urine RBC Urine WBC Ur Squamous Epith Cells Ur Transition Epith Cell Ur Renal Epithelial Cell Calcium Oxalate Crystal Uric Acid Crystals Triple Phos Crystals Other Crystals Amorphous Sediment Urine Bacteria Hyaline Casts Granular Casts RBC Casts WBC Casts Other Casts Urine Mucus Urine Trichomonas Urine Yeast Urine Sperm Ur Culture Indicated? Micro UA Comment Salicylates < 1.0 U Opiates 300ng/mL cut Ur Oxycodone Screen Urine Methadone Screen Acetaminophen < 10 Ur Barbiturates Screen U Tricyclic Antidepress Ur Phencyclidine Scrn Ur Amphetamines Screen U Methamphetamines Scrn Ur MDMA Scrn (Ecstasy) U Benzodiazepines Scrn Urine Cocaine Screen U Marijuana (THC) Screen Ethyl Alcohol < 10 SARS-CoV-2 (PCR) 06/27/22 06/27/22 06/27/22 10:50 10:50 10:50 WBC RBC Hgb Hct MCV MCH MCHC RDW Plt Count Neut % (Auto) Lymph % (Auto) [place] % (Auto) Eos % (Auto) Baso % (Auto) Neut # (Auto) Lymph # (Auto) [place] # (Auto) Eos # (Auto) Baso # (Auto) PT INR APTT Sodium Potassium Chloride Carbon Dioxide BUN Creatinine Estimated GFR BUN/Creatinine Ratio Glucose Lactate 0.9 Calcium Total Bilirubin AST ALT Alkaline Phosphatase Ammonia < 9 L Total Creatine Kinase CK-MB (CK-2) CK-MB (CK-2) Rel Index Troponin I Total Protein Albumin Globulin Albumin/Globulin Ratio Procalcitonin TSH 0.865 Prolactin Urine Color Urine Appearance Urine pH Ur Specific [place] Urine Protein Urine Glucose (UA) Urine Ketones Urine Occult Blood Urine Nitrate Urine Bilirubin Urine Urobilinogen Ur Leukocyte Esterase Urine RBC Urine WBC Ur Squamous Epith Cells Ur Transition Epith Cell Ur Renal Epithelial Cell Calcium Oxalate Crystal Uric Acid Crystals Triple Phos Crystals Other Crystals Amorphous Sediment Urine Bacteria Hyaline Casts Granular Casts RBC Casts WBC Casts Other Casts Urine Mucus Urine Trichomonas Urine Yeast Urine Sperm Ur Culture Indicated? Micro UA Comment Salicylates U Opiates 300ng/mL cut Ur Oxycodone Screen Urine Methadone Screen Acetaminophen Ur Barbiturates Screen U Tricyclic Antidepress Ur Phencyclidine Scrn Ur Amphetamines Screen U Methamphetamines Scrn Ur MDMA Scrn (Ecstasy) U Benzodiazepines Scrn Urine Cocaine Screen U Marijuana (THC) Screen Ethyl Alcohol SARS-CoV-2 (PCR) 06/27/22 06/27/22 06/27/22 11:40 14:45 14:45 WBC RBC Hgb Hct MCV MCH MCHC RDW Plt Count Neut % (Auto) Lymph % (Auto) [place] % (Auto) Eos % (Auto) Baso % (Auto) Neut # (Auto) Lymph # (Auto) [place] # (Auto) Eos # (Auto) Baso # (Auto) PT INR APTT Sodium Potassium Chloride Carbon Dioxide BUN Creatinine Estimated GFR BUN/Creatinine Ratio Glucose Lactate Calcium Total Bilirubin AST ALT Alkaline Phosphatase Ammonia Total Creatine Kinase CK-MB (CK-2) CK-MB (CK-2) Rel Index Troponin I Total Protein Albumin Globulin Albumin/Globulin Ratio Procalcitonin TSH Prolactin Urine Color Yellow Urine Appearance Clear Urine pH 6.0 Ur Specific [place] <=1.005 Urine Protein Negative Urine Glucose (UA) Negative Urine Ketones Negative Urine Occult Blood Negative Urine Nitrate Negative Urine Bilirubin Negative Urine Urobilinogen 0.2 Ur Leukocyte Esterase Negative Urine RBC None seen Urine WBC 0-1/hpf Ur Squamous Epith Cells 0-1 /hpf Ur Transition Epith Cell Ur Renal Epithelial Cell Calcium Oxalate Crystal Uric Acid Crystals Triple Phos Crystals Other Crystals Amorphous Sediment Urine Bacteria None seen Hyaline Casts Granular Casts RBC Casts WBC Casts Other Casts Urine Mucus Urine Trichomonas Urine Yeast Urine Sperm Ur Culture Indicated? Cult not indicated Micro UA Comment Salicylates U Opiates 300ng/mL cut Negative Ur Oxycodone Screen Negative Urine Methadone Screen Negative Acetaminophen Ur Barbiturates Screen Negative U Tricyclic Antidepress Negative Ur Phencyclidine Scrn Negative Ur Amphetamines Screen Negative U Methamphetamines Scrn Negative Ur MDMA Scrn (Ecstasy) Negative U Benzodiazepines Scrn Positive H Urine Cocaine Screen Negative U Marijuana (THC) Screen Positive H Ethyl Alcohol SARS-CoV-2 (PCR) Negative 06/27/22 06/27/22 06/27/22 14:45 16:15 16:15 WBC RBC Hgb Hct MCV MCH MCHC RDW Plt Count Neut % (Auto) Lymph % (Auto) [place] % (Auto) Eos % (Auto) Baso % (Auto) Neut # (Auto) Lymph # (Auto) [place] # (Auto) Eos # (Auto) Baso # (Auto) PT INR APTT Sodium Potassium Chloride Carbon Dioxide BUN Creatinine Estimated GFR BUN/Creatinine Ratio Glucose Lactate 0.8 Calcium Total Bilirubin AST ALT Alkaline Phosphatase Ammonia Total Creatine Kinase CK-MB (CK-2) CK-MB (CK-2) Rel Index Troponin I < 0.012 Total Protein Albumin Globulin Albumin/Globulin Ratio Procalcitonin TSH Prolactin Urine Color Cancelled Urine Appearance Cancelled Urine pH Cancelled Ur Specific [place] Cancelled Urine Protein Cancelled Urine Glucose (UA) Cancelled Urine Ketones Cancelled Urine Occult Blood Cancelled Urine Nitrate Cancelled Urine Bilirubin Cancelled Urine Urobilinogen Cancelled Ur Leukocyte Esterase Cancelled Urine RBC Cancelled Urine WBC Cancelled Ur Squamous Epith Cells Cancelled Ur Transition Epith Cell Cancelled Ur Renal Epithelial Cell Cancelled Calcium Oxalate Crystal Cancelled Uric Acid Crystals Cancelled Triple Phos Crystals Cancelled Other Crystals Cancelled Amorphous Sediment Cancelled Urine Bacteria Cancelled Hyaline Casts Cancelled Granular Casts Cancelled RBC Casts Cancelled WBC Casts Cancelled Other Casts Cancelled Urine Mucus Cancelled Urine Trichomonas Cancelled Urine Yeast Cancelled Urine Sperm Cancelled Ur Culture Indicated? Cancelled Micro UA Comment Cancelled Salicylates U Opiates 300ng/mL cut Ur Oxycodone Screen Urine Methadone Screen Acetaminophen Ur Barbiturates Screen U Tricyclic Antidepress Ur Phencyclidine Scrn Ur Amphetamines Screen U Methamphetamines Scrn Ur MDMA Scrn (Ecstasy) U Benzodiazepines Scrn Urine Cocaine Screen U Marijuana (THC) Screen Ethyl Alcohol SARS-CoV-2 (PCR) Assessment & Plan Assessment & Plan narrative: 1. Probable syncope Patient presents with what sounds like orthostatic symptoms as the etiology of his syncopal episode. Cardiac enzymes are negative. No evidence of acute stroke. He does describe lightheadedness right before he fell. He also notes because of his shuffling gait, he believes that contributed to his fall. His medications have not yet been reconciled, but it does appear he is on lisinopril, metoprolol, spironolactone, as well as tamsulosin. These could all be contributing to lower blood pressures and orthostasis. Additionally, he was notably hypothermic and bradycardic on arrival. It is possible his bradycardia contributed to his symptoms as well. Will continue telemetry. Will check orthostatic vital signs. His hypothermia is improving. He is no symptoms of infection, negative UA, negative chest x-ray, normal procalcitonin and lactate and no focal symptoms. Doubt infectious etiology. He has known occlusion of both carotid arteries with some reconstitution upstream. This undoubtedly is contributing as well. However, given his extensive occlusive disease and reconstitution, he does not appear to be a candidate for any intervention. Additionally he has known vertebral artery stenosis bilaterally. Last echocardiogram was done in June of 2021 and revealed a mildly enlarged left ventricle with severely reduced systolic function with an EF of 25-30%. He would akinetic inferior and inferolateral li. Annuloplasty ring noted in the mitral position. Mild regurgitation present. Will obtain an echocardiogram while he is here. 2. Hypothermia Likely secondary to ambient exposure. He has no infectious symptoms. His body temperature has since improved. 3. Coronary artery disease with previous 4 vessel bypass surgery Await medication reconciliation. Will check orthostatic vital signs. He is on low-dose metoprolol. Plan to resume his usual home meds once they have been reconciled. Cardiac enzymes were negative x2. He is having intermittent chest pain but notes an upcoming appointment with his respiratory equipment assistant. He also notes intermittent chest pain is not atypical for him. He does not use nitroglycerin. 4. Peripheral artery disease As noted, he has known vasculopathy with stenosis of his carotid arteries, vertebral arteries, as well as his coronary arteries. He appears to be on aspirin, atorvastatin at baseline. He continues to smoke but is trying to cut down. 5. Hypertension It appears he is on lisinopril and metoprolol on an outpatient basis. There is also spironolactone listed. Await medication reconciliation. 6. Hyperlipidemia resume statin therapy once meds have been confirmed 7. Bipolar disorder Resume usual meds once meds have been reconciled. 8. Leukopenia Mildly low at 4.2. Will repeat labs in the morning. 9. Positive urine drug screen Patient's urine drug screen was positive for benzodiazepines which are prescribed at baseline as well as marijuana. Code status Full per patient Prophylaxis Low Caleb score Disposition Admit to acute care, observation status. Time Spent With Patient Critical Care time: I spent a total of [] minutes of critical care time on this patient's care today; this time is exclusive of procedural time. Quality VTE Deep Vein Thrombosis/Pulmonary Embolism Present on Admission: No
[2022-06-27] MEDS: SODIUM CHLORIDE 0.9% FLUSH 10 ML IV (21:08)
[2022-06-27] MEDS: ATORVASTATIN 20 MG TABLET 80 MG PO (21:08)
[2022-06-28] MEDS: TAMSULOSIN 0.4 MG CAPSULE PO ×2 (00:17→08:45)
[2022-06-28] MEDS: buPROPion XL 150 MG TAB 450 MG PO ×2 (00:19→08:44)
[2022-06-28] MEDS: ALPRAZolam 0.5 MG TABLET PO (00:19)
[2022-06-28 00:25] VITALS: BP 129/64; PULSE 65; RESP 20; TEMP 37.1; O2SAT 95
[2022-06-28 04:00] VITALS: BP 108/42; PULSE 63; RESP 20; TEMP 36.6; O2SAT 96
[2022-06-28] MEDS: ACETAMINOPHEN 325 MG TABLET 650 MG PO ×2 (04:43→11:14)
[2022-06-28] MEDS: GABAPENTIN 400 MG CAPSULE PO ×2 (04:43→08:44)
[2022-06-28 05:48] LABS: Add Manual Diff / Slide Review NO; Basophils Absolute Auto 0 /uL (0-100); Eosinophils Absolute Auto 300 /uL (0-450); Eosinophils Percent Auto 5.9 % (2-4); Hematocrit 36.2 % (41-53); Hemoglobin 12.4 g/dL (13.5-17.5); Lymphocytes Absolute Auto 1200 /uL (1100-4500); Mean Corpuscular HGB Conc 34.1 % (30-36); Mean Corpuscular Hemoglobin 31.4 PG (26-34); Mean Corpuscular Volume 91.9 fL (80-100); Monocytes Absolute Auto 300 /uL (0-900); Monocytes Percent Auto 6.6 % (3-14); Neutrophils Absolute Auto 2500 /uL (1500-7000); Neutrophils Percent Auto 57.5 % (50-75); Platelet Count 144 X10^3/uL (150-400); Red Blood Cell Count 3.94 X10^6/uL (4.5-5.9); Red Cell Distribution Width 12.7 % (11.6-14.8); White Blood Cell Count 4.3 X10^3/uL (4.5-11.0)
[2022-06-28 06:03] LABS: Blood Urea Nitrogen 14 mg/dL (9-20); Calcium 7.8 mg/dL (8.4-10.2); Carbon Dioxide 24 mmol/L (22-32); Chloride 109 mmol/L (98-107); Estimated Glomerular Filt Rate > 60 mL/min (>60); Glucose 118 mg/dL (70-100); HEMOLYSIS < 15 (0-50); Potassium 3.6 mmol/L (3.4-5.1); Sodium 138 mmol/L (137-145)
[2022-06-28 08:00] VITALS: BP 128/69; PULSE 65; RESP 18; TEMP 36.3; O2SAT 93
[2022-06-28] MEDS: ASPIRIN EC 81 MG TABLET PO (08:44)
[2022-06-28] MEDS: SODIUM CHLORIDE 0.9% FLUSH 10 ML IV (08:45)
[2022-06-28 09:10] LABS: Acinetobacter baumannii Not Detected (Not Detect); Candida albicans Not Detected (Not Detect); Candida glabrata Not Detected (Not Detect); Candida krusei Not Detected (Not Detect); Candida parapsilosis Not Detected (Not Detect); Candida tropicalis Not Detected (Not Detect); E. coli Not Detected (Not Detect); Enterobacter cloacae complex Not Detected (Not Detect); Enterobacteriaceae species Not Detected (Not Detect); Enterococcus species Not Detected (Not Detect); Haemophilus influenzae Not Detected (Not Detect); Listeria monocytogenes Not Detected (Not Detect); Methicillin-resistant gene Not Detected (Not Detect); Neisseria meningitidis Not Detected (Not Detect); Proteus species Not Detected (Not Detect); Pseudomonas aeruginosa Not Detected (Not Detect); Serratia marcescens Not Detected (Not Detect); Staphylococcus species Detected (Not Detect); Streptococcus agalactiae (Gr B Not Detected (Not Detect); Streptococcus pneumonia Not Detected (Not Detect); Streptococcus pyogenes (Gr A) Not Detected (Not Detect); Streptococcus species Not Detected (Not Detect)
--- NOTE | 2022-06-28 09:29 | OT.IP.EVAL ---
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 Activities of Daily Living and IADL's Pt states does all ADL and laundry on his own. Social History Household Members family Living Arrangements Apartment/Condo Number of Floors (Floors) One Floor Number of Stairs To Enter/Railing? Pre pt has a step to get into the apartment. Home Environment Standard Height Toilet,Tub/ Shower Home Equipment Front Wheel Walker,Straight Cane,Crutches,Shower Seat with Backrest,Hand Held Shower M2 OT-IP Current Condition Start: 06/28/22 10:38 Freq: Status: Active Protocol: Document 06/28/22 08:50 [facility] (Rec: 06/28/22 10:57 [facility] [id number]) Occupational Therapy Current Condition Current Condition Evaluation Date 06/28/22 Treatment Diagnosis Syncope, GLF M3 OT- IP Subjective and Pain Start: 06/28/22 10:38 Freq: Status: Active Protocol: Document 06/28/22 08:50 [facility] (Rec: 06/28/22 10:57 [facility] [id number]) OT- Subjective Occupational Therapy Visit Type Type Initial Evaluation Visit Start Time 08:50 Visit Stop Time 09:29 Total Visit Minutes 39 Occupational Therapy Visit Comments Patient Comments Pt agreed to get up. Patient/Caregiver Goals TO go home. OT Pain Assessment Pain When Pain Assessed At Rest Pain Present Pain Present Pain Reported M4 OT- IP ADL's Start: 06/28/22 10:38 Freq: Status: Active Protocol: Document 06/28/22 08:50 [facility] (Rec: 06/28/22 10:57 [facility] [id number]) OT DMV-[id number]-[id number] General Evaluation Self-Feeding Ability Independent Areas Needing Assistance Opening Containers Comments OT Self-Feeding Comments set- up assist OT ADL-Grooming General Evaluation Grooming Ability Independent Areas Needing Assistance Retrieving/Set-up of Grooming Items Comments OT Grooming Comments Set-up to open package for toothbrush. OT ADL-Oral Care General Eval Oral Care Ability Independent OT ADL-Dressing General Eval Lower Body Dressing Ability Standby Assistance Comments OT Dressing Comments Pt mainly using his right hand for LB dressing needs due to weakness and decreased coordination of LUE. OT ADL-Toileting General Evaluation Toileting Ability Standby Assistance Comments OT Toileting Comments Pt able to stand with the FWW to urinate over the toilet. OT ADL-Bathing Comments OT Bathing Comments Not performed and encourage pt to use the shower chair at home. M5 OT- IP IADL's Start: 06/28/22 10:38 Freq: Status: Active Protocol: Document 06/28/22 08:50 [facility] (Rec: 06/28/22 10:57 [facility] [id number]) OT-Instrumental Activities of Daily Living Deficits IADL Deficits Identified Deficits Home Safety Awareness Awareness of Need for Assistance at Home Decreased Awareness Ability to Problem Solve Emergency Able to Problem Solve Situations Medication Management Medication Management Comments Pt states use of bubble pack for meds. M6 OT- IP Functional Cognition Start: 06/28/22 10:38 Freq: Status: Active Protocol: Document 06/28/22 08:50 [facility] (Rec: 06/28/22 10:57 [facility] [id number]) Cognitive Factors Limiting Selfcare Function Cognitive Ability Level of Alertness Alert Patient Orientation Name,Month,Year,Place, Situation Attention Span Ability Capable of Focused Attention, Capable of Sustained Attention Ability to Follow Commands Able to Follow One Step Commands Memory Description Short Term Impaired Safety Awareness Underestimates Need for Assistance Cognitive Comments Cognitive Assessment Comments Pt able to follow commands for ADl and mobility needs however at time decreased historian of prior level and has decreased STM. OT- Vision and Hearing OT- Hearing Assessment OT- Hearing Assessment WFL OT- Vision Assessment Visual Acuity Glasses For Reading Visual Attentiveness WFL Visual Shay Impaired Diplopia Absent Visual Spacial Neglect Left Vision Assessment Comments questionable decreased left lower quadrant impairment M7 OT- IP Mobility and Balance Start: 06/28/22 10:38 Freq: Status: Active Protocol: Document 06/28/22 08:50 [facility] (Rec: 06/28/22 10:57 [facility] [id number]) OT- Bed Mobility Assessment Rolling Level of Assistance Standby Assistance Supine to Sit Supine to Sit Assist Standby Assistance OT-Transfer Assessment Sit to and From Stand Sit to and from Stand Contact Guard Assistance Transfers Transfer Ability Contact Guard Assistance Technique Transfer Destination Bed,Chair,Toilet Transfer Technique Stand Step Pivot Devices Transfer Assistive Devices Gait Belt,Front Wheeled Walker Comments Mobility Comments SBA for bed mobility needs and CGA without the FWW. With the FWW pt not able to hold very well with left hand and use of cane much safer and needing close SBA to CGA at times. OT- Balance Assessment Sitting Balance and Reactions Static Sitting Balance Ability Normal Dynamic Sitting Balance Ability Good Standing Balance and Reactions Static Standing Balance Ability Fair Dynamic Standing Balance Ability Fair M8 OT- IP Objective Assessments Start: 06/28/22 10:38 Freq: Status: Active Protocol: Document 06/28/22 08:50 [facility] (Rec: 06/28/22 10:57 [facility] [id number]) OT Gross Range of Motion Upper Extremity Range of Motion Assessment Left Impaired OT Strength Upper Extremity Strength Assessment Left Impaired Comments Strength Comments RUE 4/5 to 4-/5 and LUE 3-/5 to 3+/5 OT- Coordination Assessment Upper Extremity Finger to Nose Test Left UE Impaired OT-Muscle Tone Assessment Muscle Tone WNL Yes Comments Muscle Tone Comments Increased tone with LUE. M9 OT- IP Assessment and Plan Start: 06/28/22 10:38 Freq: Status: Active Protocol: Document 06/28/22 08:50 [facility] (Rec: 06/28/22 10:57 [facility] [id number]) OT Summary Assessment and Plan Potential Rehabilitation Potential Good Analytic Complexity at Evaluation Low Summary OT Impairments Pain,Strength,Balance,Tone, Functional Cognition, Functional Mobility,Dressing, Toileting,Bathing,Toilet Transfers,Shower Transfers Progress Towards Goals Slow Progress due to Pain,Slow Progress due to Medical Issues,Slow Progress due to Cognition Assessment Summary Pt LOW complexity and main barriers are decreased dynamic balance, decreased use of LUE however per pt is close to his baseline as pt history of RCVA with left weakness. Pt would benefit from home health to look environmental safety for the pt due his left neglect, dynamic balance and continue to work on safety awareness for his needs. Goals Self-Feeding Goal Independent Grooming Goal Independent Dressing Goal Independent Toileting Goal Independent Bathing Goal Independent Toilet Transfer Goal Independent Shower Transfer Goal Independent Frequency of Treatment Frequency Of Treatment Once a Day Treatment Plan OT Treatment Plan ADL Training,Functional Mobility,Vision Retraining, Patient/Family Education Other Treatment Recommendations and Next shower Treatment Focus Discharge Recommendations OT Discharge Recommendations Home with Assistance,Home Health Transportation Needs at Discharge Private Vehicle
--- NOTE | 2022-06-28 09:42 | PT.IIE ---
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) Tobacco use Physical Therapy Inpatient Evaluation/Re-Eval M1 PT/OT-IP Prior Functional Status Start: 06/28/22 08:09 Freq: NEEDED Status: Active Protocol: Document 06/28/22 09:42 [facility] (Rec: 06/28/22 10:57 [facility] [id number]) Medical Review Prior Functional Status Medical History Reviewed Yes Diet/Fluid Consistency Regular Communication WFL Mobility and Gait Independent without device, hx of falls, left foot drags sometimes, sometimes runs into things on left side when walking, ambulates in the community Activities of Daily Living and IADL's Independent, not driving Prior Functional Level (Other details) 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 none Home Environment Standard Height Toilet,Tub/ Shower Home Equipment Straight Cane,Shower Seat without Backrest Additional Social History Comment on disability has walking stick and cane at home M2 PT-IP Current Condition Start: 06/28/22 08:09 Freq: NEEDED Status: Active Protocol: Document 06/28/22 09:42 [facility] (Rec: 06/28/22 10:57 [facility] [id number]) Physical Therapy Current Condition Current Condition Evaluation Date 06/28/22 Treatment Diagnosis fall, left hemiplegia, impaired gait Onset Date 06/27/22 M3 PT-IP Subjective Start: 06/28/22 08:09 Freq: NEEDED Status: Active Protocol: Document 06/28/22 09:42 [facility] (Rec: 06/28/22 10:57 [facility] [id number]) Subjective Physical Therapy Visit Type Type Initial Evaluation Visit Start Time 09:15 Visit Stop Time 09:42 Total Visit Minutes 27 Number of OCEANOLOGIST Visits 0 Physical Therapy Visit Comments Patient Comments He reports he has a headache in area of left eye today. He thinks he is feeling better over-all. Patient Goals Discharge home Therapy Pain Assessment Pain When Pain Assessed At Rest Pain Present Pain Present Pain Reported Location head Intensity 8 Scale Used Numeric (0 - 10) Description Aching M4 PT-IP Mobility and Gait Start: 06/28/22 08:09 Freq: NEEDED Status: Active Protocol: Document 06/28/22 09:42 [facility] (Rec: 06/28/22 10:57 [facility] [id number]) PT-Bed Mobility Assessment Scooting Scooting to Edge of Bed Independent PT-Transfer Assessment Sit to and From Stand Sit to and from Stand Independent,Use of Upper Extremities Equipment Transfer Assistive Device Gait Belt,Straight Cane Transfers Transfer Destination Chair Transfer Technique Stand Step Pivot Transfer Ability Level of Assist Standby Assistance,Use of Upper Extremities Comments Mobility Comments Pt got up independently from bed with occupational therapy to the recliner. He is in the recliner at the start of this visit. He reports feeling better today. He initially had some right LE soreness sitting but it resolved when he got up ambulating. He has mild inattention to left side which is a chronic problem and well documented in prior physical therapy evaluations. He only uses right UE during sit-stand due to impaired motor control left hand. Gait Assessment Gait Gait Assistance Required: Independent,Standby Assistance Distance (Feet) 200 Assistive Devices Assistive Device Gait Belt,Straight Cane Gait Deviations General Gait Pattern Decreased Feet Clearance Factors Limiting Gait Function Factors Limiting Gait Function Incoordination Comments Gait Comments He shows intermittent decreased left foot clearance but shows good improvement in it with verbal cues. He shows understanding and strategies that he has been taught in prior therapy to clear left foot but he needs reminders to attend to his left LE. PT-Balance Assessment Sitting Balance and Reactions Static Sitting Balance Ability Good Dynamic Sitting Balance Ability Good Standing Balance and Reactions Static Standing Balance Ability Good Dynamic Standing Balance Ability Good Device Used Cane M5 PT-IP Objective Assessments Start: 06/28/22 08:09 Freq: NEEDED Status: Active Protocol: Document 06/28/22 09:42 [facility] (Rec: 06/28/22 10:57 [facility] [id number]) Orientation Orientation/Cognition Level of Alertness Alert Orientation Name,Birthday,Month,Year,Place ,Situation Language Function Ability No Deficits Noted Safety Awareness Decreased Safety Awareness Memory Description Short Term Impaired Comments he is inconsistent in giving information about his fall and has given different versions to people while hospitalized, at this eval he reports he does not recall the fall but woke up with some lady looking down at him on the ground and then called 911. Gross Range of Motion Upper Extremity ROM Assessment Within Functional Limits Lower Extremity ROM Assessment Within Functional Limits Strength Upper Extremity Strength Assessment Left Impaired Shoulder see OT evaluation for details on his strength Lower Extremity Strength Assessment Within Functional Limits Hip hip flex 5/5 Knee knee ext 5/5, knee flex 4+/5 Ankle DF 4+/5 Comments Strength Comments he has impaired motor control and attention to left side that interferes with functional use of his UE and LE Coordination Assessment Gross Coordination Gross Coordination Impaired Assessment Finger to Nose Test Severe Impairment Foot Tapping Test Moderate Impairment Coordination Comments impaired on left side Sensation Assessment Comments Sensation Comments proprioception impaired on left UE and LE, he reports no numbness left side Muscle Tone Muscle Tone WNL No Comments Muscle Tone Comments mild increased tone on left with UE more than LE and some synergistic patterns M6 PT-IP Treatment Start: 06/28/22 08:09 Freq: NEEDED Status: Active Protocol: Document 06/28/22 09:42 [facility] (Rec: 06/28/22 10:57 [facility] [id number]) Physical Therapy Treatment Education Education Provided Safety Other Treatments Other Treatment Performed pt sitting up in recliner, loaner cane left in his room to use while hospitalized M7 PT-IP Assessment and Plan Start: 06/28/22 08:09 Freq: NEEDED Status: Active Protocol: Document 06/28/22 09:42 [facility] (Rec: 06/28/22 10:57 [facility] [id number]) PT Summary Assessment and Plan Potential Rehabilitation Potential Good Status of Condition at Evaluation Evolving Summary Impairments Balance,Gait,Activity Tolerance Progress Towards Goals Safe For Discharge Assessment Summary Fidel is alert and motivated to work with therapy today. He is eager to go home. He shows good functional strength for mobility and gait. His left hemiplegia appears to be at baseline. He has a mild left inattention that is present but also baseline. He shows improved safety of gait with use of a cane. He intermittently drags his left foot but can clear it from the floor with verbal reminders. He owns cane/walking stick at home and would benefit from using it to decrease his fall risks. He appears to be safe to discharge home when medically cleared. No further skilled PT needs at this time. Recommend nursing provide Stand by assist when he is up moving to keep paths clear and to decrease his fall risks. Frequency of Treatment Frequency Of Treatment Discharge Treatment Plan Other Recommendations and Next Treatment training completed this visit, Focus recommend he ambulate with st cane to decrease his fall risks associated with his chronic left hemiplegia Precautions Other Precautions hx of falls Weight Bearing Status Weight Bearing Status Weight Bear as Tolerated Recommendations To Nursing Amount of Assist Needed Standby Assistance Discharge Recommendations PT Discharge Recommendations Home Transportation Needs at Discharge Private Vehicle
--- NOTE | 2022-06-28 10:36 | PC.NURSE ---
watched patient eat his breakfast. he was able to eat his sausage, fruits, and brazilian toast without coughing or any trouble swallowing. talked to speech therapist Louisa regarding patient's status.
[2022-06-28 12:00] VITALS: BP 126/68; PULSE 65; RESP 18; TEMP 36.4; O2SAT 93
--- NOTE | 2022-06-28 13:42 | CM.DPC ---
DCP Cont: Patient is to be discharged home tomorrow. Met with patient, as he does not drive, nor does his mother. His mother is aware that patient is here. Patient wanted to walk home, lives a couple of blocks away, but encouraged him to allow for transportation to be set up, since he could fall. He has passed P.T. per his baseline. He does not have a cane for home, has been using one here in the hospital. Patient gave permission for this DC Curriculum And Assessment Coordinator to call his mother for further information. Patient indicated, [facility] may not want to pick him up, they don't get along. Called patient's mother, Sofia. She confirmed that she does not drive, and has no family or friends to assist. Asked her if patient has used [employer] before, but unsure about the relationship between her son and the [employer] company. Called [facility]. They were just concerned about his mobility, and liability if he is a fall risk. They are willing to pick him up. Asked patient if he could pay for the taxi, stated, he did not know where his wallet is. Confirmed that the cost would be $6.00, per the [employer] company. Will plan on getting patient to the ER at about 1500, and will call [facility] shortly before this time to ensure he will be there. Completing a taxi voucher. P: Patient is to be discharged home today, as it gets closer to 1500, will set him up when they get ready to wheel him down there. Nathalia Otto RN/Pharmacist Aide
--- NOTE | 2022-06-28 18:40 | PM.DS.1 ---
History of Present Illness History of Present Illness Chief complaint: Code Stroke Narrative: 57-year-old gentleman with coronary artery disease status post CABG, hypertension, hyperlipidemia, as well as 2 strokes with residual left-sided weakness, ongoing tobacco dependence, as well as history of bipolar disorder who was brought into the emergency department today via EMS after being found down outside. At the time of arrival, he was unable to tell much to the emergency room physician. However, he is now able to tell me that he had been on his couch watching TV earlier this morning. Got up to go to the store to buy cigarettes. He states he felt dizzy prior to falling. He denies having been short of breath or having chest pain. He states there was a woman nearby who witnessed his fall. States she called 911 and stayed with him until paramedics arrived. He was able to crawl back to the curb but felt too weak to get up. Estimates his downtime to have been about 20 minutes. He knows this has happened on a couple of occasions in his home as well where he has become dizzy and fallen. He reports he typically walks rather slow due to his deficits from his stroke. He does not use a cane or walker. He states that his left foot drags and he has persistent left hand weakness. Reports no history of seizures. He has not missed any of his medications. Does report an episode a few weeks ago of having chest pain. 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 He states getting occasional chest pain is pretty typical for him. The only new symptom he has had recently is notes that he has been having some coughing/choking on solid food over the last couple of days. In the emergency department, he was initially hypothermic at 94.1. Heart rate was 48, respiratory rate was 10, BP was 164/86, O2 saturation was 98%. Subsequently, his body temperature is improved as did his heart rate and respiratory rate. Laboratories revealed a white blood cell count of 4.2, hemoglobin of 13.9, hematocrit 41.0, platelets 156. Coags were within normal limits. Chemistry panel was within normal limits with the exception of a mildly elevated chloride at 108. Lactate was normal at 0.9. On follow-up it was 0.8. Ammonia was less than 9. Cardiac enzymes revealed a CPK of 109, CK-MB of 0.97, troponin I of less than 0.012. On recheck his troponin remained within normal limits. LFTs were within normal limits. Procalcitonin less than 0.03. TSH and prolactin were also normal. UA was completely normal. Chest x-ray revealed mild streaky opacity in the left lung which was unchanged, felt to be due to scarring or atelectasis. CT of the head revealed no evidence of hemorrhage, and noted sequelae of right MCA territory infarct. CTA of the head and neck revealed unchanged occlusion of bilateral internal carotid arteries. No new intracranial occlusion demonstrated. Stable right frontal lobe large infarct. Stable high-grade stenosis of the bilateral V4 vertebral arteries. MRI revealed moderately large old right MCA distribution frontal infarct with encephalomalacia, mild small-vessel ischemic change, no evidence of acute stroke, hemorrhage, or mass. While in the emergency department, he received 2 L of IV fluids, a single dose of alprazolam 0.25 mg prior to imaging study. Admission was recommended. Currently patient's only complaint is of a mild headache, which he reports is typical for him. Discharge Providers Provider Date of admission: 06/27/22 16:01 Discharge Date: 06/28/22 Primary care physician: Trent Gutiérrez MD Consults: 06/27/22 16:53 Consult to Discharge Planning Routine Comment: Consult to Occupational Therapy Evaluate & Treat Comment: Physician Instructions: Evaluate and treat Consult to Physical Therapy Evaluate & Treat Comment: Physician Instructions: Evaluate and Treat Consult to Speech Therapy Evaluate & Treat Comment: Physician Instructions: Evaluate and treat 06/27/22 18:35 Consult to Speech Therapy Evaluate & Treat Comment: Physician Instructions: Evaluate and treat Discharge provider: Keyona Thomas MD Summary Hospital Course Discharge Diagnosis: Probable syncope, possibly orthostatic in nature versus cardiogenic Hypothermia, resolved, felt likely to be secondary to ambient exposure after his syncopal episode Cerebrovascular disease with prior moderately large right MCA distribution frontal infarct with residual left-sided weakness Coronary artery disease with previous 4 vessel bypass surgery, chronic, stable Peripheral artery disease, chronic, stable Hypertension, chronic, stable Hyperlipidemia, chronic, stable Bipolar disorder, chronic, stable Leukopenia, mild Positive urine drug screen Chronic ischemic cardiomyopathy with ejection fraction of 25-30% Hospital Course: Patient was admitted after what he describes to have been a syncopal episode while walking to the store to purchase cigarettes. He was brought into the emergency department for further evaluation. Initially he was brought in as a code stroke. However, there was no evidence of acute infarct. Patient was able to provide the history prior to the syncopal event and afterwards at the time of my admission history and physical. Therapies assessed him and felt he was likely at his baseline on the date of discharge. He was slated to have an echocardiogram, particularly given his known ischemic cardiomyopathy with ejection fraction of 25-30%. 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 He does agree to have a an echocardiogram performed on an outpatient basis. 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 He was encouraged to return to the emergency department for recurrent syncope, falls, or new onset stroke symptoms. He did ask what he can do to reduce further risk. We discussed the importance of smoking cessation and I encouraged him to continue working on reduction and ultimately discontinuation of tobacco use. Status at Discharge Overall status at discharge: patient is back to baseline Time Spent with Patient Time spent: Greater than 30 minutes Time spent discussing smoking cessation with patient: 3 to 10 minutes Exam Vital Signs (past 8 hours): - 06/28/22 12:00 Temperature 97.6 F Pulse Rate 65 Respiratory Rate 18 Blood Pressure 126/68 Pulse Oximetry 93 Oxygen Delivery Method Room Air Oxygen Flow Rate 0 Narrative Exam Narrative: GEN: Middle-aged male, sitting up in a chair, Alert and oriented x 3, mildly dysarthric, NAD HEENT:NC, Face symmetric CHEST: Respiratory excursions symmetric, CTAB CV: RRR, no M/R/G ABD: Soft, NT/ND, BT present in all 4 quadrants, no organomegaly or masses EXTR: warm, well perfused, no C/C/E SKIN: warm and dry, no rash NEURO: Alert and oriented x 3, left-sided weakness unchanged Objective Labs 06/28/22 05:34 06/28/22 05:34 Labs: Laboratory Results - last 24 hr 06/27/22 06/28/22 06/28/22 11:06 05:34 05:34 WBC 4.3 L RBC 3.94 L Hgb 12.4 L Hct 36.2 L MCV 91.9 MCH 31.4 MCHC 34.1 RDW 12.7 Plt Count 144 L Neut % (Auto) 57.5 Lymph % (Auto) 29.0 [place] % (Auto) 6.6 Eos % (Auto) 5.9 H Baso % (Auto) 1.0 Neut # (Auto) 2500 Lymph # (Auto) 1200 [place] # (Auto) 300 Eos # (Auto) 300 Baso # (Auto) 0 Sodium 138 Potassium 3.6 Chloride 109 H Carbon Dioxide 24 BUN 14 Creatinine 0.70 Estimated GFR > 60 BUN/Creatinine Ratio 20.0 Glucose 118 H Calcium 7.8 L A. baumannii (PCR) Not detected Denise albicans (PCR) Not detected C. glabrata (PCR) Not detected C. krusei (PCR) Not detected C. parapsilosis (PCR) Not detected C. tropicalis (PCR) Not detected Enterobacteriac sp PCR Not detected E. cloacae complex PCR Not detected Enterococcus sp PCR Not detected E. coli (PCR) Not detected H. influenzae (PCR) Not detected Klebsiella oxytoca PCR Not detected Klebsiella pneumoniae Not detected List. monocytogenes PCR Not detected N. meningitidis (PCR) Not detected Proteus species (PCR) Not detected Serratia marcescens PCR Not detected Staphylococcus sp PCR Detected H Staph aureus (PCR) Not detected mecA-Methicil Res Gene Not detected Streptococcus sp PCR Not detected Group A Strep (PCR) Not detected Strep agalactiae (PCR) Not detected Strep pneumoniae (PCR) Not detected P. 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 Return to the ED for ongoing dizziness/falls, chest pain, shortness of breath, or new stroke symptoms. Recommend that you discontinue naproxen as it is contraindicated in patient with prior strokes. Continue your efforts at smoking cessation. Discharge orders & Medications Prescriptions: Continued atorvastatin 80 mg tablet 80 mg PO BEDTIME metoprolol succinate 25 mg capsule,sprinkle,ER 24hr 25 mg PO DAILY spironolactone 25 mg tablet 12.5 mg PO DAILY Rx Instructions: Take one half tablet by mouth daily tamsulosin 0.4 mg capsule 0.4 mg PO DAILY gabapentin 400 mg capsule 400 mg PO TID Qty: 90 3RF hydroxyzine pamoate 25 mg capsule See Rx Instructions .ROUTE .COMPLEX Qty: 180 3RF Dose Instruction: TAKE ONE TO TWO CAPSULES BY MOUTH THREE TIMES DAILY NEEDED FOR FOR SEVERE ANXIETY Rx Instructions: TAKE ONE TO TWO CAPSULES BY MOUTH THREE TIMES DAILY NEEDED FOR FOR SEVERE ANXIETY olanzapine 20 mg tablet 20 mg PO BEDTIME Qty: 30 2RF diazepam 5 mg tablet 5 mg PO BID Qty: 60 3RF bupropion HCl 150 mg tablet extended release 24 hr 450 mg PO QAM Qty: 90 3RF Rx Instructions: take 3 tablet every morning albuterol sulfate 90 mcg/actuation HFA aerosol inhaler 2 inh inhalation Q4-6H PRN (Reason: shortness of breath or wheezing) Qty: 6.7 3RF aspirin 81 mg Tablet,Delayed Release (Dr/Ec) 81 mg PO DAILY Qty: 30 0RF lisinopril 20 mg tablet 20 mg PO DAILY Discontinued alprazolam 0.5 mg tablet 0.5 mg PO ONCE Qty: 1 0RF Patient Comments: Not taking at home. naproxen sodium [Aleve] 220 mg tablet 220 mg PO BID PRN (Reason: pain) Qty: 60 3RF Rx Instructions: take 1-2 tabs twice daily for 1 week, then 1-2 tabs up to twice daily as needed for chest wall or joint pain Follow up/Referrals: Trent Gutiérrez MD [Primary Care Provider] - Diet/Activity/Treatments Diet: Diet as Tolerated Diet comment: Heart Healthy diet Activity: As tolerated Oxygen: N/A Visit Report/Discharge Packet Instructions: How to Prevent Falls, How to Quit Smoking, DI for Dizziness-Nonvertigo Stand Alone Forms: Patient Portal/API, Stroke Signs & Symptoms Discharge Data Primary Care Provider: Trent Gutiérrez Attending Provider: Keyona Thomas VTE Deep Vein Thrombosis/Pulmonary Embolism Present on Admission: No
--- NOTE | 2022-06-30 10:51 | SLP.IPNOTE ---
Patient has discharged from [facility]. Discharging speech orders.
== END 2022-06-28 15:00 | disposition home or self-care (01) | DRG 312 ==
LOC: ED 12:37 → AC 16:28
PROVIDERS: Admitting Provider Family Medicine; Emergency Provider Emergency Medicine; PCP Family Medicine; Visit Provider Family Medicine
DX: R55 Syncope and collapse (principal); I69.954 Hemiplegia and hemiparesis following unspecified cerebrovascular disease affecting left non-dominant side; T68.XXXA Hypothermia, initial encounter; I25.10 Atherosclerotic heart disease of native coronary artery without angina pectoris; I73.9 Peripheral vascular disease, unspecified; I10 Essential (primary) hypertension; E78.5 Hyperlipidemia, unspecified; F31.9 Bipolar disorder, unspecified; F17.210 Nicotine dependence, cigarettes, uncomplicated; X31.XXXA Exposure to excessive natural cold, initial encounter; Z95.1 Presence of aortocoronary bypass graft; Z20.822 Contact with and (suspected) exposure to COVID-19; R29.704 NIHSS score 4
CPT/HCPCS: 36415; 70450; 70496; 70498; 70551; 71045; 80048; 80053; 80305; 80320; 80329; 81001; 82140; 82550; 82553; 82962; 83605; 84145; 84146; 84443; 84484; 85025; 85610; 85730; 87040; 87086; 87150; 87635; 93005; 93010; 97161; 97165; 99285; C9803; G0378; G0480

== ENCOUNTER → 2022-08-26 11:12 | Outpatient (CLI) | payer OTHER, MEDICAID, SELFPAY ==
[2022-06-27 17:19] VITALS: BMI 29.0
--- NOTE | 2022-08-26 11:13 | DI.RAD.S_ITS ---
PROCEDURE: XR LUMBAR SPINE 2-3V INDICATIONS: chronic low back pain TECHNIQUE: 3 views of the lumbar spine were acquired. COMPARISON: [facility], CR, XR LUMBAR SPINE 2-3V, 06/13/2021, 8:06. [facility], CR, XR LUMBAR SPINE 2-3V, 09/24/2019, 19:51. FINDINGS: Bones: Similar moderate degree of spondylotic changes, with particular disc space height loss at L1 and L2. Vertebral body heights are well maintained. Similar mild endplate deformity at L1. No traumatic subluxation. Soft tissues: Vascular calcifications. Partially seen cardiac valve device. Degenerative changes of the hips. IMPRESSION: No acute changes compared to prior imaging. Moderate spondylosis. If there is high concern for further derangement, consider MRI evaluation. Dictated by: Charlie Swann M.D. on 08/26/2022 at 13:51 Approved by: Charlie Swann M.D. on 08/26/2022 at 13:52
--- NOTE | 2022-08-26 11:13 | DI.RAD.S_ITS ---
PROCEDURE: XR KNEE RT 3V INDICATIONS: right knee pain TECHNIQUE: 3 views of the knee were acquired. COMPARISON: None. FINDINGS: Bones: Mild degenerative changes, with joint space narrowing in the medial compartment. Quadriceps insertional enthesopathy. Soft tissues: Vascular calcifications. No significant joint effusion. IMPRESSION: Mild medial joint space narrowing and quadriceps insertional enthesopathy. If there is high concern for further derangement, consider MRI evaluation. Dictated by: Charlie Swann M.D. on 08/26/2022 at 13:52 Approved by: Charlie Swann M.D. on 08/26/2022 at 13:53
[2022-08-26 12:44] LABS: Add Manual Diff / Slide Review NO; Basophils Absolute Auto 100 /uL (0-100); Basophils Percent Auto 0.8 % (0-2); Eosinophils Absolute Auto 300 /uL (0-450); Eosinophils Percent Auto 4.2 % (2-4); Hematocrit 42.1 % (41-53); Hemoglobin 14.7 g/dL (13.5-17.5); Lymphocytes Absolute Auto 1300 /uL (1100-4500); Lymphocytes Percent Auto 21.2 % (25-40); Mean Corpuscular HGB Conc 34.8 % (30-36); Mean Corpuscular Hemoglobin 31.2 PG (26-34); Mean Corpuscular Volume 89.5 fL (80-100); Monocytes Absolute Auto 300 /uL (0-900); Monocytes Percent Auto 5.1 % (3-14); Neutrophils Absolute Auto 4100 /uL (1500-7000); Neutrophils Percent Auto 68.7 % (50-75); Platelet Count 167 X10^3/uL (150-400); Red Cell Distribution Width 12.9 % (11.6-14.8)
[2022-08-26 12:57] LABS: Alanine Aminotransferase 33 IU/L (<50); Albumin 4.5 g/dL (3.5-5.0); Albumin Globulin Ratio 1.6 (1.0-2.8); Alkaline Phosphatase 52 U/L (38-126); Aspartate Aminotransferase 23 IU/L (17-59); BUN Creatinine Ratio 16.7 (6-22); Bilirubin Total 0.8 mg/dL (0.2-1.3); Blood Urea Nitrogen 14 mg/dL (9-20); Calcium 9.2 mg/dL (8.4-10.2); Carbon Dioxide 31 mmol/L (22-32); Chloride 103 mmol/L (98-107); Estimated Glomerular Filt Rate > 60 mL/min (>60); Globulin 2.9 g/dL (1.7-4.1); Glucose 86 mg/dL (70-100); HEMOLYSIS < 15 (0-50); Potassium 4.2 mmol/L (3.4-5.1); Sodium 140 mmol/L (137-145); Total Protein 7.4 g/dL (6.3-8.2)
[2022-08-26 13:33] LABS: TSH w/ Reflex to FT4 1.03 uIU/mL (0.47-4.68)
[2022-08-27 05:19] LABS: Labcorp Hemoglobin (Hb) A1c 5.2 % (4.8-5.6)
== END ==
PROVIDERS: PCP Family Medicine; Referring Provider Family Medicine; Visit Provider Family Medicine
DX: M25.561 Pain in right knee (principal); M47.816 Spondylosis without myelopathy or radiculopathy, lumbar region; M76.9 Unspecified enthesopathy, lower limb, excluding foot; M54.50 Low back pain, unspecified; I63.9 Cerebral infarction, unspecified; G45.9 Transient cerebral ischemic attack, unspecified; E78.5 Hyperlipidemia, unspecified; R73.9 Hyperglycemia, unspecified; F31.81 Bipolar II disorder; D61.818 Other pancytopenia
CPT/HCPCS: 72100; 73562; 80053; 83036; 84443; 85025

== ENCOUNTER → 2022-10-14 08:05 | Outpatient (CLI) | payer OTHER, MEDICAID, SELFPAY ==
[2022-06-27 17:19] VITALS: BMI 29.0
--- NOTE | 2022-10-14 | DI.ECHO.S_ITS ---
[place] +---------+ [facility] +---------+ : : [address] : : : : [id number] : : : : Phone: [phone]+ Echocardiogram Report + + :Name: ALAN RAJPUT Study Date: 10/14/2022 Height: 66 in : :[facility] ReadingLocation: Weight: 155 lb : : Gender: Male BSA: 1.8 m2 : :: 1965 Age: 57 yrs BP: 142/81 mmHg: :Reason For Study: ISCHEMIC CARDIOMYOPATHY : :Ordering Physician: STEVE, : :BENEDICT Performed By: Sri Gant : :Referring: BENEDICT CADENA : + + Interpretation Summary 1) Normal sized left ventricle with severely reduced systolic function (EF 25- 30%). 2) The inferior wall and inferolateral wall are akinetic (and scarred). Rest of the LV is moderately hypokinetic. 3) Normal right ventricular size with mildly reduced function. 4) Annuloplasty ring is noted in mitral position. Mild regurgitation present. 5) There is mild aortic stenosis (valve area 1.6cm2, mean gradient 6mmHg, severity ratio 0.44). 6) Compared to the Echo done 06/19/2021, mild aortic stenosis is present on this study. Procedure: A two-dimensional transthoracic echocardiogram with color flow and Doppler was performed. The study quality was technically adequate. Comparison is made with the echocardiogram of 06/19/2021. The patient was in sinus bradycardia with heart rates between 54-61 bpm during the exam. Left Ventricle: The left ventricle is normal in size. The estimated left ventricular end diastolic volume is 118 ml. The ejection fraction is estimated to be 25-30%. The inferior wall and inferolateral wall are akinetic (and scarred). Rest of the LV is moderately hypokinetic. Right Ventricle: The right ventricle is normal size. Right ventricular systolic function is mildly reduced. Atria: The left atrial size is normal. Right atrial size is normal. There is no Doppler evidence for an interatrial shunt. Mitral Valve: There is moderate mitral annular calcification. An annuloplasty ring is noted in the mitral position. There is mild mitral regurgitation. Aortic Valve: The aortic valve is trileaflet. The aortic valve is mildly calcified. There is mild aortic valve sclerosis. There is mildly reduced leaflet mobility. There is mild aortic stenosis. No aortic regurgitation is present. Tricuspid Valve: The tricuspid valve is normal in structure and function. There is trace tricuspid regurgitation. Pulmonic Valve: The pulmonic valve is not well seen, but is grossly normal. There is no pulmonic valvular regurgitation. Great Vessels: The aortic root is normal size. The IVC is of normal diameter and collapses greater than 50% with a sniff. This suggests a low right atrial pressure of 3 mm Hg. Pericardium/ Pleura There is no pericardial effusion. There is no pleural effusion. MMode/2D Measurements & Calculations LVIDd: 5.3 cm LVOT diam: 2.0 cm LVIDs: 4.6 cm Ao root diam: 2.8 cm FS: 13.3 % asc Aorta Diam: 3.2 cm EPSS: 1.5 cm Ao Arch Diam (Prox Trans): 2.6 cm IVSd: 0.97 cm LVPWd: 0.55 cm LV bernal. diameter/BSA (cm/m^2): 2.9 LV sys. diameter/BSA (cm/m^2): 2.5 LA A2 area: 12.4 cm2 RA long axis: 3.6 cm LA A4 area: 8.5 cm2 RA area: 8.6 cm2 LA length (vol): 3.5 cm RA vol: 17.6 ml LA vol: 25.6 ml RA : 9.8 ml/m2 LA vol index: 14.3 ml/m2 IVC diam: 0.94 cm RVD1 (basal): 3.6 cm RVD2 (mid): 3.1 cm Doppler Measurements & Calculations Ao V2 max: 163.7 cm/sec LVOT Max Case: 83.1 cm/sec Ao V2 mean: 117.8 cm/sec LV V1 max P.8 mmHg Ao max P.7 mmHg LV V1 VTI: 16.3 cm Ao mean P.0 mmHg LARA(I,D): 1.4 cm2 Ao V2 VTI: 36.8 cm LARA(V,D): 1.6 cm2 sev ratio: 0.44 LARA indexed to BSA (cm^2/m^2): 0.80 MV E max case: 95.4 cm/sec PA V2 max: 114.4 cm/sec MV A max case: 110.6 cm/sec PA V2 mean: 82.6 cm/sec MV E/A: 0.86 PA mean P.0 mmHg Med Peak E' Case: 2.8 cm/sec PA pr(Accel): 46.5 mmHg E/E' med: 33.9 Lat Peak E' Case: 6.7 cm/sec E/E' lat: 14.2 E/e' average: 24.1 MV dec time: 0.22 sec SV(LVOT): 52.6 ml Reading Physician:11:56 AM
== END ==
PROVIDERS: PCP Family Medicine; Referring Provider Internal Medicine Cardiovascular Disease; Visit Provider Internal Medicine Cardiovascular Disease
DX: I08.0 Rheumatic disorders of both mitral and aortic valves (principal); I25.5 Ischemic cardiomyopathy; Z98.890 Other specified postprocedural states
CPT/HCPCS: 93306

== ENCOUNTER 2022-10-17 13:01 | Emergency (ER) | payer OTHER, MEDICAID, SELFPAY ==
[2022-06-27 17:19] VITALS: BMI 29.0
[2022-10-17] VITALS (9 sets, daily range): BP systolic 111–140; BP diastolic 64–69; PULSE 42–55; RESP 15–17; TEMP 36.4; O2SAT 96–99; BMI 25.4
--- NOTE | 2022-10-17 13:14 | DI.RAD.S_ITS ---
PROCEDURE: XR CHEST 1V INDICATIONS: chest pain TECHNIQUE: One view of the chest was acquired. COMPARISON: [facility], CR, XR CHEST 1V, 06/27/2022, 10:45. FINDINGS: Surgical changes and devices: Remote CABG and valvuloplasty Lungs and pleura: Lungs are clear. No pleural effusions or pneumothorax. Mediastinum: Mediastinal contours appear normal. Mild cardiomegaly with a left ventricular configuration. Bones and chest wall: No suspicious bony lesions. Overlying soft tissues appear unremarkable. IMPRESSION: Mild cardiomegaly. No evidence acute pulmonary process. Dictated by: Pavel Arauz M.D. on 10/17/2022 at 14:02 Approved by: Pavel Arauz M.D. on 10/17/2022 at 14:03
--- NOTE | 2022-10-17 14:56 | ED_ITS ---
HPI - Weakness General Chief complaint: Weakness Stated complaint: Feeling Unwell Time Seen by Provider: 10/17/22 14:56 Source: EMS Mode of arrival: EMS History of Present Illness HPI Narrative: Patient is a 57-year-old male history of CVA, CABG x4, bipolar, hypertension, substance, bradycardia presenting today with weakness and fall. He reports that he got up to answer the door when he tripped and fell hurting the right side of his back. He did not hit his head did not lose consciousness. Difficult to get history from him. According to records he was admitted here June 27 through the for a TIA. He is previously had 2 strokes with left-sided weakness. He is noted to be extremely bradycardic in the ED now with heart rate as low as 40. During his previous admission it appears that his heart rate was 48-50. He has persistent left-sided weakness from previous strokes. He is followed by Dr. Cadena cardiology and Dr. Gutiérrez PCP. Echo 10/14/22 Interpretation Summary 1) Normal sized left ventricle with severely reduced systolic function (EF 25- 30%). 2) The inferior wall and inferolateral wall are akinetic (and scarred). Rest of the LV is moderately hypokinetic. 3) Normal right ventricular size with mildly reduced function. 4) Annuloplasty ring is noted in mitral position. Mild regurgitation present. 5) There is mild aortic stenosis (valve area 1.6cm2, mean gradient 6mmHg, severity ratio 0.44). 6) Compared to the Echo done 06/19/2021, mild aortic stenosis is present on this study. Related Data Home Medications Medication Instructions Recorded Confirmed lisinopril 20 mg tablet 20 mg PO DAILY 07/15/18 08/26/22 atorvastatin 80 mg tablet 80 mg PO BEDTIME 01/23/20 08/26/22 metoprolol succinate 25 mg capsule 25 mg PO DAILY 01/23/20 08/26/22 sprinkle, ext. release 24 hr spironolactone 25 mg tablet 12.5 mg PO DAILY 07/04/21 08/26/22 tamsulosin 0.4 mg capsule 0.4 mg PO DAILY 07/04/21 08/26/22 hydroxyzine pamoate 25 mg capsule See Rx Instructions .Route 08/25/22 08/26/22 .COMPLEX PRN Anxiety Previous Rx's Medication Instructions Recorded aspirin 81 mg tablet,delayed 81 mg PO DAILY #30 tabs 06/20/21 release albuterol sulfate 90 mcg/actuation 2 inh inhalation Q4-6H PRN 12/30/21 aerosol inhaler shortness of breath or wheezing #6.7 grams bupropion HCl 150 mg 24 hr tablet, 450 mg PO QAM #90 tabs 06/20/22 extended release gabapentin 600 mg tablet 600 mg PO TID #90 tabs 08/26/22 olanzapine 20 mg tablet 20 mg PO BEDTIME #30 tabs 09/03/22 diazepam 5 mg tablet 5 mg PO BID #60 tabs 10/09/22 Allergies Allergy/AdvReac Type Severity Reaction Status Date / Time No Known Drug Allergies Allergy Verified 10/17/22 13:04 Review of Systems Review of Systems ROS Unobtainable: All systems reviewed & are unremarkable except as noted in HPI and below 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) Tobacco use Surgical History H/O valvuloplasty S/P CABG x 4 Family History Grandfather Heart attack Family/Other Heart attack Social History household members: family Smoking Status: Current every day smoker alcohol intake: former Smoking Status: Current every day smoker tobacco type: cigarettes alcohol intake frequency: other Substance Use Type: marijuana Exam Initial Vital Signs Initial Vital Signs: Vital Signs Temperature 97.5 F L 10/17/22 13:04 Pulse Rate 45 L 10/17/22 13:04 Respiratory Rate 16 10/17/22 13:04 Blood Pressure 111/64 10/17/22 13:04 Pulse Oximetry 96 10/17/22 13:04 Oxygen Delivery Method Room Air 10/17/22 13:04 GENERAL: Alert 57-year-old male weeks sleepy but easily arousable and in no acu te distress. HEENT: Head atraumatic,EOMI, pupils reactive, face symmetric, moist mucous membranes CARDIOVASCULAR: Regular rate and rhythm without murmurs, rubs or gallops. RESPIRATORY: Breath sounds equal bilaterally, no wheezes rales or rhonchi. ABDOMEN: Soft, nontender. Normoactive bowel sounds all 4 quadrants. No guarding or rebound. BACK: No vertebral tenderness no step-offs mild right-sided flank pain EXTREMITIES: Normal range of motion, no clubbing or edema. Neurovascularly intact NEUROLOGICAL: Alert and oriented x4. SKIN: Warm, dry, no laceration, no petechiae, no rashes or lesions. Course Orders Ordered: ED Orders 10/17/22 13:14 XR chest 1V Stat 10/17/22 13:21 EKG-12 Lead Stat 10/17/22 14:25 BNP [NT-proBNP (BNP-Adult 18+)] Stat Complete Blood Count AUTO DIFF Stat Comprehensive Metabolic Panel Stat Ethanol (ETOH) Stat Lactate (Lactic Acid) Stat Lipase Stat Magnesium Stat PTT Partial Thromboplastin Fco Stat Prothrombin Time INR Stat Troponin & CK Cardiac Panel Stat 10/17/22 14:59 Urine Drug Screen, Rapid Stat 10/17/22 15:09 UA Complete [Urinalysis and Microscopic] Stat Discontinued Medications Sodium Chloride (Normal Saline 0.9%) 1,000 mls @ 1,000 mls/hr IV BOLUS ONE Stop: 10/17/22 15:59 Vital Signs Vital signs: Vital Signs - 8 hr 10/17/22 13:04 10/17/22 13:50 10/17/22 13:51 Temperature 97.5 F L Pulse Rate 45 L 45 L 46 L Respiratory Rate 16 16 Blood Pressure 111/64 Pulse Oximetry 96 98 98 Oxygen Delivery Method Room Air 10/17/22 13:51 10/17/22 14:00 10/17/22 14:00 Temperature Pulse Rate 43 L Respiratory Rate 15 Blood Pressure 126/69 124/69 Pulse Oximetry 99 Oxygen Delivery Method 10/17/22 14:30 10/17/22 15:00 10/17/22 15:30 Temperature Pulse Rate 42 L 42 L 55 L Respiratory Rate 17 15 Blood Pressure Pulse Oximetry 99 98 97 Oxygen Delivery Method 10/17/22 15:31 10/17/22 15:45 Temperature Pulse Rate 55 L Respiratory Rate Blood Pressure 140/65 Pulse Oximetry 98 Oxygen Delivery Method MDM - Weakness Lab Data 10/17/22 14:25 10/17/22 14:25 Labs: Lab Results 06/30/23 06/30/23 06/30/23 Range/Units 14:25 14:25 14:25 WBC 5.9 (4.5-11.0) X10^3/uL RBC 4.45 L (4.5-5.9) X10^6/uL Hgb 14.0 (13.5-17.5) g/dL Hct 39.9 L (41-53) % MCV 89.7 (80-100) fL MCH 31.4 (26-34) PG MCHC 35.0 (30-36) % RDW 13.1 (11.6-14.8) % Plt Count 164 (150-400) X10^3/uL Neut % (Auto) 51.3 (50-75) % Lymph % (Auto) 33.2 (25-40) % [place] % (Auto) 7.9 (3-14) % Eos % (Auto) 6.4 H (2-4) % Baso % (Auto) 1.2 (0-2) % Neut # (Auto) 3000 (7605-0977) /uL Lymph # (Auto) 2000 (8942-7472) /uL [place] # (Auto) 500 (0-900) /uL Eos # (Auto) 400 (0-450) /uL Baso # (Auto) 100 (0-100) /uL RBC Morphology Normal morphology PT 11.5 (10.1-12.7) SECONDS INR 1.0 (0.9-1.3) APTT 20 L (26-36) SECONDS Sodium 139 (137-145) mmol/L Potassium 4.3 (3.4-5.1) mmol/L Chloride 106 (98-107) mmol/L Carbon Dioxide 26 (22-32) mmol/L BUN 25 H (9-20) mg/dL Creatinine 0.88 (0.66-1.25) mg/dL Estimated GFR > 60 (>60) mL/min BUN/Creatinine Ratio 28.4 H (6-22) Glucose 61 L (70-100) mg/dL Lactate (0.7-2.1) mmol/L Calcium 9.0 (8.4-10.2) mg/dL Magnesium 2.0 (1.6-2.3) mg/dL Total Bilirubin 0.4 (0.2-1.3) mg/dL AST 17 (17-59) IU/L ALT 18 (<50) IU/L Alkaline Phosphatase 32 L (38-126) U/L Total Creatine Kinase 47 L (55-170) U/L Troponin I < 0.012 (0.01-0.034) ng/mL NT-Pro-B Natriuret Pep (<125) pg/mL Total Protein 6.9 (6.3-8.2) g/dL Albumin 4.3 (3.5-5.0) g/dL Globulin 2.6 (1.7-4.1) g/dL Albumin/Globulin Ratio 1.7 (1.0-2.8) Lipase 99 (23-300) U/L Ethyl Alcohol ( - 10) mg/dL 10/17/22 10/17/22 10/17/22 Range/Units 14:25 14:25 14:25 WBC (4.5-11.0) X10^3/uL RBC (4.5-5.9) X10^6/uL Hgb (13.5-17.5) g/dL Hct (41-53) % MCV (80-100) fL MCH (26-34) PG MCHC (30-36) % RDW (11.6-14.8) % Plt Count (150-400) X10^3/uL Neut % (Auto) (50-75) % Lymph % (Auto) (25-40) % [place] % (Auto) (3-14) % Eos % (Auto) (2-4) % Baso % (Auto) (0-2) % Neut # (Auto) (7805-7732) /uL Lymph # (Auto) (6381-5145) /uL [place] # (Auto) (0-900) /uL Eos # (Auto) (0-450) /uL Baso # (Auto) (0-100) /uL RBC Morphology PT (10.1-12.7) SECONDS INR (0.9-1.3) APTT (26-36) SECONDS Sodium (137-145) mmol/L Potassium (3.4-5.1) mmol/L Chloride (98-107) mmol/L Carbon Dioxide (22-32) mmol/L BUN (9-20) mg/dL Creatinine (0.66-1.25) mg/dL Estimated GFR (>60) mL/min BUN/Creatinine Ratio (6-22) Glucose (70-100) mg/dL Lactate 1.1 (0.7-2.1) mmol/L Calcium (8.4-10.2) mg/dL Magnesium (1.6-2.3) mg/dL Total Bilirubin (0.2-1.3) mg/dL AST (17-59) IU/L ALT (<50) IU/L Alkaline Phosphatase (38-126) U/L Total Creatine Kinase (55-170) U/L Troponin I (0.01-0.034) ng/mL NT-Pro-B Natriuret Pep 91 (<125) pg/mL Total Protein (6.3-8.2) g/dL Albumin (3.5-5.0) g/dL Globulin (1.7-4.1) g/dL Albumin/Globulin Ratio (1.0-2.8) Lipase (23-300) U/L Ethyl Alcohol < 10 ( - 10) mg/dL ECG Data Interpretation: Sinus bradycardia rate 44 TX interval 180 QRS [address] changes Q-wave noted in lead 3 similar to previous EKGs MDM Narrative Medical decision making narrative: Patient 57-year-old male complicated history CVA, CABG x4 vessel, chronic back pain polysubstance abuse presenting today with fall weakness and significant bradycardia. Heart rate seems to be pretty persistently in the 40s occasionally drops into the high 30s. He reports that he tripped and fell can not rule out a syncopal episode secondary to bradycardia. He would an echocardiogram 3 days ago which did show significant reduced systolic function with an EF of 25-30%. Patient is found to be hypoglycemic with glucose of 61. He is given peanut butter and crackers. He is a nondiabetic not on insulin. He abruptly pulled off his leads takes out his IV and walked out. Initial concern was for severe bradycardia low EF and a syncopal episode. However patient was not willing to listen or stay. He had a steady gait. The patient is clinically sober, free from distracting injury, appears to have intact insight, judgment and reason. Does not meet criteria for involuntary hospitalization. Patient has the capacity to make decisions. The patient is also not under any duress to leave the hospital. In this scenario, it would be battery to subject the patient to treatment against his/her will. I have voiced my concerns for the patient's health given that a full evaluation and treatment had not occurred. I have discussed the need for continued evaluation to determine if there symptoms are caused by a condition that present risk of or morbidity. Risk including but not limited to , permanent disability, prolonged hospitalization, prolonged illness, were discussed. I tried offering alternative options in hopes that the patient might be amenable to partial evaluation and treatment which would be medically beneficial to the patient, though the patient declined my options and insisted on leaving. Because I have been unable to convince the patient to stay I answered all of their questions about the condition and ask them to return to the ED as soon as possible to complete their evaluation, especially if their symptoms worsen or do not improve. I emphasized that leaving against medical advice did not preclude returning here for further evaluation. I asked the patient to return if they change their mind about the further evaluation and treatment. I strongly enco uraged the patient to return to this emergency department or any emergency department at any time, particularly with worsening symptoms. Discharge Plan Departure Patient Disposition: Left Against Medical Advice Prescriptions: No Action atorvastatin 80 mg tablet 80 mg PO BEDTIME metoprolol succinate 25 mg capsule,sprinkle,ER 24hr 25 mg PO DAILY spironolactone 25 mg tablet 12.5 mg PO DAILY Rx Instructions: Take one half tablet by mouth daily tamsulosin 0.4 mg capsule 0.4 mg PO DAILY bupropion HCl 150 mg tablet extended release 24 hr 450 mg PO QAM Qty: 90 3RF Rx Instructions: take 3 tablet every morning olanzapine 20 mg tablet 20 mg PO BEDTIME Qty: 30 2RF diazepam 5 mg tablet 5 mg PO BID Qty: 60 3RF albuterol sulfate 90 mcg/actuation HFA aerosol inhaler 2 inh inhalation Q4-6H PRN (Reason: shortness of breath or wheezing) Qty: 6.7 3RF gabapentin 600 mg tablet 600 mg PO TID Qty: 90 1RF aspirin 81 mg Tablet,Delayed Release (Dr/Ec) 81 mg PO DAILY Qty: 30 0RF hydroxyzine pamoate 25 mg capsule See Rx Instructions .ROUTE .COMPLEX PRN (Reason: Anxiety) Rx Instructions: TAKE ONE TO TWO CAPSULES BY MOUTH THREE TIMES DAILY NEEDED FOR FOR SEVERE ANXIETY lisinopril 20 mg tablet 20 mg PO DAILY Stand Alone Forms: Against Medical Advice
[2022-10-17 15:03] LABS: Alanine Aminotransferase 18 IU/L (<50); Albumin 4.3 g/dL (3.5-5.0); Albumin Globulin Ratio 1.7 (1.0-2.8); Alkaline Phosphatase 32 U/L (38-126); Aspartate Aminotransferase 17 IU/L (17-59); BUN Creatinine Ratio 28.4 (6-22); Bilirubin Total 0.4 mg/dL (0.2-1.3); Blood Urea Nitrogen 25 mg/dL (9-20); Carbon Dioxide 26 mmol/L (22-32); Chloride 106 mmol/L (98-107); Creatine Kinase 47 U/L (55-170); Estimated Glomerular Filt Rate > 60 mL/min (>60); Globulin 2.6 g/dL (1.7-4.1); Glucose 61 mg/dL (70-100); HEMOLYSIS 42 (0-50); Lipase 99 U/L (23-300); Potassium 4.3 mmol/L (3.4-5.1); Sodium 139 mmol/L (137-145); Total Protein 6.9 g/dL (6.3-8.2)
[2022-10-17 15:07] LABS: Prothrombin Time 11.5 SECONDS (10.1-12.7)
[2022-10-17 15:10] LABS: PTT Partial Thromboplastin Tim 20 SECONDS (26-36)
[2022-10-17 15:12] LABS: Basophils Absolute Auto 100 /uL (0-100); Basophils Percent Auto 1.2 % (0-2); Eosinophils Absolute Auto 400 /uL (0-450); Eosinophils Percent Auto 6.4 % (2-4); Hematocrit 39.9 % (41-53); Lymphocytes Absolute Auto 2000 /uL (1100-4500); Lymphocytes Percent Auto 33.2 % (25-40); Mean Corpuscular Hemoglobin 31.4 PG (26-34); Mean Corpuscular Volume 89.7 fL (80-100); Monocytes Absolute Auto 500 /uL (0-900); Monocytes Percent Auto 7.9 % (3-14); Neutrophils Absolute Auto 3000 /uL (1500-7000); Neutrophils Percent Auto 51.3 % (50-75); Red Blood Cell Count 4.45 X10^6/uL (4.5-5.9); Red Cell Distribution Width 13.1 % (11.6-14.8); White Blood Cell Count 5.9 X10^3/uL (4.5-11.0)
[2022-10-17 15:13] LABS: Add Manual Diff / Slide Review SLIDE REVIEW
[2022-10-17 15:15] LABS: Troponin I < 0.012 ng/mL (0.01-0.034)
[2022-10-17 15:23] LABS: Platelet Count 164 X10^3/uL (150-400); RBC Morphology Normal Morphology
[2022-10-17 15:25] LABS: Lactate (Lactic Acid) 1.1 mmol/L (0.7-2.1)
[2022-10-17 15:26] LABS: Ethanol (ETOH) < 10 mg/dL
[2022-10-17 15:35] LABS: NT-proBNP (BNP-Adult 18+) 91 pg/mL (<125)
--- NOTE | 2022-10-17 15:39 | PC.NURSE ---
Patient removed his IV and states he wants to leave, is ambulatory in hallway with Kleenex on his arm to stop bleeding from prior IV site. Patient returned to his room upon request and agrees to wait to see Doctor Farooq. Dr. Trivedi in room informing patient of blood test results which showed blood glucose of 61. Patient given apple juice, peanut butter and thomas crackers, and milk. He is sitting up in room eating.
--- NOTE | 2022-10-17 15:50 | PC.NURSE ---
At approx. 1530 the patient came out of his room with a napkin on his arm stating he was going to leave. He has pulled his IV out and was bleeding a little. I wrapped his arm with coban and asked him why he wanted to leave and he said he was hungry. He was given food and was notified.
== END 2022-10-17 15:55 | disposition left against medical advice (07) ==
PROVIDERS: Emergency Provider Emergency Medicine; PCP Family Medicine
DX: R07.9 Chest pain, unspecified (principal); R00.1 Bradycardia, unspecified; E16.2 Hypoglycemia, unspecified; W01.0XXA Fall on same level from slipping, tripping and stumbling without subsequent striking against object, initial encounter
CPT/HCPCS: 71045; 80053; 80320; 82550; 83605; 83690; 83735; 83880; 84484; 85025; 85610; 85730; 93005; 93010; 99283; 99284

== ENCOUNTER 2022-10-18 13:29 | Emergency (ER) | payer OTHER, MEDICAID, SELFPAY ==
[2022-06-27 17:19] VITALS: BMI 29.0
[2022-10-18] VITALS (15 sets, daily range): BP systolic 102–187; BP diastolic 56–92; PULSE 47–65; RESP 9–19; TEMP 36.3; O2SAT 95–100
--- NOTE | 2022-10-18 13:38 | ED_ITS ---
HPI - General Adult General Chief complaint: Altered Mental Status Stated complaint: tired found unresponsive, now responsive. Time Seen by Provider: 10/18/22 13:32 Source: patient and EMS Mode of arrival: EMS Limitations: altered mental status History of Present Illness HPI narrative: Patient is a 57-year-old male. He was not on anticoagulation. Is brought in by EMS. EMS was called by bystanders when they found the patient lying on the ground. The patient states that his legs just gave out from underneath him. He stated that he did not hit his head. He is in no pain. He knows he is in the hospital but does not know what year it is. Pre-hospital blood glucose was greater than 75. Patient was here in the emergency department yesterday. Was found to be bradycardic with a heart rate in the 40s. It appeared that he had had a syncopal episode. There was a recommendation that he be admitted to the hospital for further evaluation however the patient left against medical advice. Patient denies any alcohol use. He stated that he did smoke marijuana this morning. He has a history of a CVA with baseline left-sided weakness. He states he normally ambulates without any assist devices. He reports no new weakness. Related Data Home Medications Medication Instructions Recorded Confirmed lisinopril 20 mg tablet 20 mg PO DAILY 07/15/18 08/26/22 atorvastatin 80 mg tablet 80 mg PO BEDTIME 01/23/20 08/26/22 metoprolol succinate 25 mg capsule 25 mg PO DAILY 01/23/20 08/26/22 sprinkle, ext. release 24 hr spironolactone 25 mg tablet 12.5 mg PO DAILY 07/04/21 08/26/22 tamsulosin 0.4 mg capsule 0.4 mg PO DAILY 07/04/21 08/26/22 hydroxyzine pamoate 25 mg capsule See Rx Instructions .Route 08/25/22 08/26/22 .COMPLEX PRN Anxiety Previous Rx's Medication Instructions Recorded aspirin 81 mg tablet,delayed 81 mg PO DAILY #30 tabs 06/20/21 release albuterol sulfate 90 mcg/actuation 2 inh inhalation Q4-6H PRN 12/30/21 aerosol inhaler shortness of breath or wheezing #6.7 grams bupropion HCl 150 mg 24 hr tablet, 450 mg PO QAM #90 tabs 06/20/22 extended release gabapentin 600 mg tablet 600 mg PO TID #90 tabs 08/26/22 olanzapine 20 mg tablet 20 mg PO BEDTIME #30 tabs 09/03/22 diazepam 5 mg tablet 5 mg PO BID #60 tabs 10/09/22 Allergies Allergy/AdvReac Type Severity Reaction Status Date / Time No Known Drug Allergies Allergy Verified 10/17/22 13:04 Review of Systems Constitutional Comments: Denies headache Cardiovascular Comments: Denies chest pain Respiratory Comments: Denies shortness of breath Gastrointestinal Comments: Denies abdominal pain or nausea vomiting Musculoskeletal Comments: Denies any arm or leg complaints Neurologic Neurologic: Reports system reviewed and no additional complaints, except as documented Hematologic/Lymphatic On Anticoagulants: No 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) Tobacco use Surgical History H/O valvuloplasty S/P CABG x 4 Family History Grandfather Heart attack Family/Other Heart attack Social History household members: family Smoking Status: Current every day smoker alcohol intake: former Smoking Status: Current every day smoker tobacco type: cigarettes alcohol intake frequency: other Substance Use Type: marijuana Exam Initial Vital Signs Initial Vital Signs: Vital Signs Blood Pressure 102/56 L 10/18/22 13:33 Const General: cooperative and No ill appearing HENMT Head: other (Dirt on left side of head but no contusion or abrasions) Eyes General: Yes appearance normal, both eyes and all related structures Resp Effort & Inspection: normal respiratory effort Auscultation: clear to auscultation bilaterally Cardio Rate: regular rate Rhythm: regular rhythm GI Inspection: normal to inspection and non-distended Skin Other: No contusions or abrasions noted Neuro Other: Patient is alert to person and place but does not know what year it is. He does move all 4 extremities but is left upper extremity left lower extremity are weaker compared to the right although patient states this is normal for him. Extrem Other: No gross deformities Course Orders Ordered: ED Orders 10/18/22 13:39 EKG-12 Lead Stat 10/18/22 13:41 CT cervical spine wo con Stat CT head/brain wo con Stat 10/18/22 13:46 Acetaminophen Stat Complete Blood Count AUTO DIFF Stat Comprehensive Metabolic Panel Stat Ethanol (ETOH) Stat Lipase Stat Salicylate Stat 10/18/22 15:18 Urinalysis and Microscopic Stat Urine Drug Screen, Rapid Stat Sodium Chloride (Normal Saline 0.9%) 1,000 mls @ 125 mls/hr IV CONT LEONA Last Admin: 10/18/22 14:11 Dose: 125 mls/hr Documented By: MIKE Vital Signs Vital signs: Vital Signs - 8 hr 10/18/22 13:37 10/18/22 13:33 10/18/22 13:34 Temperature 97.4 F L Pulse Rate 60 58 L Respiratory Rate 14 14 Blood Pressure 107/58 L 102/56 L Pulse Oximetry 99 96 Oxygen Delivery Method Room Air Room Air 10/18/22 14:30 10/18/22 14:15 10/18/22 14:00 Temperature Pulse Rate 48 L 48 L 47 L Respiratory Rate 9 L 12 16 Blood Pressure 148/80 H 120/68 122/65 Pulse Oximetry 100 100 99 Oxygen Delivery Method Room Air Room Air Room Air 10/18/22 14:45 10/18/22 15:00 10/18/22 15:15 Temperature Pulse Rate 49 L 47 L 65 Respiratory Rate 13 12 19 Blood Pressure 143/78 H 130/71 162/77 H Pulse Oximetry 100 100 95 Oxygen Delivery Method Room Air Room Air 10/18/22 15:30 10/18/22 15:45 10/18/22 16:00 Temperature Pulse Rate 48 L 50 L 51 L Respiratory Rate 12 14 Blood Pressure 147/73 H 151/83 H 154/92 H Pulse Oximetry 100 100 99 Oxygen Delivery Method Room Air Room Air 10/18/22 16:15 10/18/22 16:30 10/18/22 17:25 Temperature Pulse Rate 51 L 51 L 63 Respiratory Rate 13 18 Blood Pressure 154/78 H 152/81 H 187/87 H Pulse Oximetry 98 96 99 Oxygen Delivery Method Room Air Room Air Room Air Medical Decision Making Medical Records Medical records reviewed: Yes I reviewed the patient's medical records. Lab Data Lab results reviewed: Yes I reviewed the patient's lab results. 10/18/22 13:46 10/18/22 13:46 Labs: Lab Results 10/18/22 10/18/22 10/18/22 Range/Units 13:46 13:46 15:18 WBC 5.1 (4.5-11.0) X10^3/uL RBC 4.51 (4.5-5.9) X10^6/uL Hgb 14.0 (13.5-17.5) g/dL Hct 39.9 L (41-53) % MCV 88.5 (80-100) fL MCH 31.1 (26-34) PG MCHC 35.2 (30-36) % RDW 12.9 (11.6-14.8) % Plt Count 161 (150-400) X10^3/uL Neut % (Auto) 48.9 L (50-75) % Lymph % (Auto) 37.1 (25-40) % [place] % (Auto) 7.7 (3-14) % Eos % (Auto) 5.0 H (2-4) % Baso % (Auto) 1.3 (0-2) % Neut # (Auto) 2500 (2049-7868) /uL Lymph # (Auto) 1900 (6598-3984) /uL [place] # (Auto) 400 (0-900) /uL Eos # (Auto) 300 (0-450) /uL Baso # (Auto) 100 (0-100) /uL Sodium 139 (137-145) mmol/L Potassium 4.1 (3.4-5.1) mmol/L Chloride 108 H (98-107) mmol/L Carbon Dioxide 23 (22-32) mmol/L BUN 19 (9-20) mg/dL Creatinine 0.86 (0.66-1.25) mg/dL Estimated GFR > 60 (>60) mL/min BUN/Creatinine Ratio 22.1 H (6-22) Glucose 77 (70-100) mg/dL Calcium 8.8 (8.4-10.2) mg/dL Total Bilirubin 0.4 (0.2-1.3) mg/dL AST 16 L (17-59) IU/L ALT 18 (<50) IU/L Alkaline Phosphatase 36 L (38-126) U/L Total Protein 6.8 (6.3-8.2) g/dL Albumin 4.2 (3.5-5.0) g/dL Globulin 2.6 (1.7-4.1) g/dL Albumin/Globulin Ratio 1.6 (1.0-2.8) Lipase 70 (23-300) U/L Urine Color Yellow Urine Appearance Clear Urine pH 5.5 (4.5-8.0) Ur Specific [place] <=1.005 (1.000-1.035) Urine Protein Negative (Negative) Urine Glucose (UA) Negative (Negative) g/dL Urine Ketones Negative (NEGATIVE) Urine Occult Blood Negative (Negative) Urine Nitrate Negative (Negative) Urine Bilirubin Negative (NEGATIVE) Urine Urobilinogen 0.2 (0.2) E.U./dL Ur Leukocyte Esterase Negative (NEGATIVE) Urine RBC None seen (0-5/HPF) Urine WBC None seen (0-5/HPF) Ur Squamous Epith Cells 1-5 /hpf (0-5/HPF) Urine Bacteria None seen (None) Ur Culture Indicated? Cult not indicated Salicylates < 1.0 (<20) mg/dL U Opiates 300ng/mL cut (Negative) Ur Oxycodone Screen (Negative) Urine Methadone Screen (Negative) Acetaminophen < 10 (10-30) ug/mL Ur Barbiturates Screen (Negative) U Tricyclic Antidepress (Negative) Ur Phencyclidine Scrn (Negative) Ur Amphetamines Screen (Negative) U Methamphetamines Scrn (Negative) Ur MDMA Scrn (Ecstasy) (Negative) U Benzodiazepines Scrn (Negative) Urine Cocaine Screen (Negative) U Marijuana (THC) Screen (Negative) Ethyl Alcohol < 10 ( - 10) mg/dL 10/18/22 Range/Units 15:18 WBC (4.5-11.0) X10^3/uL RBC (4.5-5.9) X10^6/uL Hgb (13.5-17.5) g/dL Hct (41-53) % MCV (80-100) fL MCH (26-34) PG MCHC (30-36) % RDW (11.6-14.8) % Plt Count (150-400) X10^3/uL Neut % (Auto) (50-75) % Lymph % (Auto) (25-40) % [place] % (Auto) (3-14) % Eos % (Auto) (2-4) % Baso % (Auto) (0-2) % Neut # (Auto) (3687-7446) /uL Lymph # (Auto) (9370-6818) /uL [place] # (Auto) (0-900) /uL Eos # (Auto) (0-450) /uL Baso # (Auto) (0-100) /uL Sodium (137-145) mmol/L Potassium (3.4-5.1) mmol/L Chloride (98-107) mmol/L Carbon Dioxide (22-32) mmol/L BUN (9-20) mg/dL Creatinine (0.66-1.25) mg/dL Estimated GFR (>60) mL/min BUN/Creatinine Ratio (6-22) Glucose (70-100) mg/dL Calcium (8.4-10.2) mg/dL Total Bilirubin (0.2-1.3) mg/dL AST (17-59) IU/L ALT (<50) IU/L Alkaline Phosphatase (38-126) U/L Total Protein (6.3-8.2) g/dL Albumin (3.5-5.0) g/dL Globulin (1.7-4.1) g/dL Albumin/Globulin Ratio (1.0-2.8) Lipase (23-300) U/L Urine Color Urine Appearance Urine pH (4.5-8.0) Ur Specific [place] (1.000-1.035) Urine Protein (Negative) Urine Glucose (UA) (Negative) g/dL Urine Ketones (NEGATIVE) Urine Occult Blood (Negative) Urine Nitrate (Negative) Urine Bilirubin (NEGATIVE) Urine Urobilinogen (0.2) E.U./dL Ur Leukocyte Esterase (NEGATIVE) Urine RBC (0-5/HPF) Urine WBC (0-5/HPF) Ur Squamous Epith Cells (0-5/HPF) Urine Bacteria (None) Ur Culture Indicated? Salicylates (<20) mg/dL U Opiates 300ng/mL cut Negative (Negative) Ur Oxycodone Screen Negative (Negative) Urine Methadone Screen Negative (Negative) Acetaminophen (10-30) ug/mL Ur Barbiturates Screen Negative (Negative) U Tricyclic Antidepress Negative (Negative) Ur Phencyclidine Scrn Negative (Negative) Ur Amphetamines Screen Negative (Negative) U Methamphetamines Scrn Negative (Negative) Ur MDMA Scrn (Ecstasy) Negative (Negative) U Benzodiazepines Scrn Positive H (Negative) Urine Cocaine Screen Negative (Negative) U Marijuana (THC) Screen Positive H (Negative) Ethyl Alcohol ( - 10) mg/dL Imaging Data CT scan - head: Radiologist's Impression: PROCEDURE:? CT HEAD/BRAIN WO CON ? INDICATIONS:? fall and latered ? TECHNIQUE:? Noncontrast 4.5 mm thick angled axial sections acquired from the foramen magnum to the vertex, with coronal and sagittal reformats.? For radiation dose reduction, the following was used:? automated exposure control, adjustment of mA and/or kV according to patient size.? ? COMPARISON:? [facility], CT, CT HEAD/BRAIN WO CON, 06/28/2021, 10:42. ? FINDINGS:? Image quality:? Excellent.? ? CSF spaces:? Basal cisterns are patent.? No extra-axial fluid collections.? The ventricles are symmetric in size and shape.? ? Brain:? Encephalomalacia and gliosis of the right frontal lobe likely secondary to a remote infarction is unchanged compared to the prior study on 06/28/2021.? No intracranial bleeds or masses.? There is cerebral volume loss for age, with resultant ventricular and sulcal prominence.? There are periventricular and deep white matter chronic small vessel ischemic changes.? There is intracranial internal carotid artery atherosclerosis.? ? Skull and face:? Calvarium and visualized facial bones appear intact, without suspicious lesions.? ? Sinuses:? Visualized sinuses and mastoids are clear.? ? IMPRESSION:? 1. No acute intracranial abnormality. 2. Encephalomalacia of the right frontal lobe likely due to remote infarction is unchanged compared to the prior CT on 06/28/2021.? CT - cervical spine: Radiologist's Impression: PROCEDURE:? CT CERVICAL SPINE WO CON ? INDICATIONS:? fall and altered ? TECHNIQUE:? Noncontrast 3 mm thick sections acquired from the skull base to the T4 level.? Sagittal and coronal reformats were then constructed.? For radiation dose reduction, the following was used:? automated exposure control, adjustment of mA and/or kV according to patient size.? ? COMPARISON:? [facility], CT, CT CERVICAL SPINE WO CON, 08/13/2019, 10:30. ? FINDINGS:? Image quality:? Excellent.? ? Bones:? No fractures or dislocations.? Visualized superior ribs are intact.? Multilevel degenerative changes. ? Soft tissues:? Prevertebral soft tissues are normal in thickness.? No paravertebral hematomas.? No apical pneumothoraces.? ? IMPRESSION:? No acute traumatic abnormality of the cervical spine. ECG Data Attestation: I personally reviewed and interpreted this ECG as follows: Interpretation: Sinus bradycardia Ventricular rate of 52 Left axis deviation Normal QRS LVH No ST T wave changes MDM Narrative Medical decision making narrative: Patient states that he now feels baseline. Patient ambulated around the emergency department. Was bradycardic in the 40s and 50s but has not been hypotensive. Head CT cervical spine CT are negative. No extremity injuries noted on the exam nor found from the patient. I do suspect that the marijuana that he smoked earlier this morning did have a factor in his presentation today. Patient tolerated oral intake. Will hold on further workup for now. Discharge patient home with return precautions. Discharge Plan Departure Patient Disposition: Home Clinical Impression: Marijuana intoxication Instructions: How to Prevent Falls Activity Restrictions/Additional Instructions: I recommend that you continue to take all of your medications as directed. Contact your primary care doctor for a follow-up. Return to the emergency department for new or worsening symptoms. Prescriptions: No Action atorvastatin 80 mg tablet 80 mg PO BEDTIME metoprolol succinate 25 mg capsule,sprinkle,ER 24hr 25 mg PO DAILY spironolactone 25 mg tablet 12.5 mg PO DAILY Rx Instructions: Take one half tablet by mouth daily tamsulosin 0.4 mg capsule 0.4 mg PO DAILY bupropion HCl 150 mg tablet extended release 24 hr 450 mg PO QAM Qty: 90 3RF Rx Instructions: take 3 tablet every morning olanzapine 20 mg tablet 20 mg PO BEDTIME Qty: 30 2RF diazepam 5 mg tablet 5 mg PO BID Qty: 60 3RF albuterol sulfate 90 mcg/actuation HFA aerosol inhaler 2 inh inhalation Q4-6H PRN (Reason: shortness of breath or wheezing) Qty: 6.7 3RF gabapentin 600 mg tablet 600 mg PO TID Qty: 90 1RF aspirin 81 mg Tablet,Delayed Release (Dr/Ec) 81 mg PO DAILY Qty: 30 0RF hydroxyzine pamoate 25 mg capsule See Rx Instructions .ROUTE .COMPLEX PRN (Reason: Anxiety) Rx Instructions: TAKE ONE TO TWO CAPSULES BY MOUTH THREE TIMES DAILY NEEDED FOR FOR SEVERE ANXIETY lisinopril 20 mg tablet 20 mg PO DAILY Referrals: Trent Gutiérrez MD [Primary Care Provider] - Stand Alone Forms: Patient Portal/API
--- NOTE | 2022-10-18 13:41 | DI.CT.S_ITS ---
PROCEDURE: CT HEAD/BRAIN WO CON INDICATIONS: fall and latered TECHNIQUE: Noncontrast 4.5 mm thick angled axial sections acquired from the foramen magnum to the vertex, with coronal and sagittal reformats. For radiation dose reduction, the following was used: automated exposure control, adjustment of mA and/or kV according to patient size. COMPARISON: [facility], CT, CT HEAD/BRAIN WO CON, 06/28/2021, 10:42. FINDINGS: Image quality: Excellent. CSF spaces: Basal cisterns are patent. No extra-axial fluid collections. The ventricles are symmetric in size and shape. Brain: Encephalomalacia and gliosis of the right frontal lobe likely secondary to a remote infarction is unchanged compared to the prior study on 06/28/2021. No intracranial bleeds or masses. There is cerebral volume loss for age, with resultant ventricular and sulcal prominence. There are periventricular and deep white matter chronic small vessel ischemic changes. There is intracranial internal carotid artery atherosclerosis. Skull and face: Calvarium and visualized facial bones appear intact, without suspicious lesions. Sinuses: Visualized sinuses and mastoids are clear. IMPRESSION: 1. No acute intracranial abnormality. 2. Encephalomalacia of the right frontal lobe likely due to remote infarction is unchanged compared to the prior CT on 06/28/2021. Dictated by: Jorge A Chambers M.D. on 10/18/2022 at 14:19 Approved by: Jorge A Chambers M.D. on 10/18/2022 at 14:22
--- NOTE | 2022-10-18 13:41 | DI.CT.S_ITS ---
PROCEDURE: CT CERVICAL SPINE WO CON INDICATIONS: fall and altered TECHNIQUE: Noncontrast 3 mm thick sections acquired from the skull base to the T4 level. Sagittal and coronal reformats were then constructed. For radiation dose reduction, the following was used: automated exposure control, adjustment of mA and/or kV according to patient size. COMPARISON: [facility], CT, CT CERVICAL SPINE WO CON, 08/13/2019, 10:30. FINDINGS: Image quality: Excellent. Bones: No fractures or dislocations. Visualized superior ribs are intact. Multilevel degenerative changes. Soft tissues: Prevertebral soft tissues are normal in thickness. No paravertebral hematomas. No apical pneumothoraces. IMPRESSION: No acute traumatic abnormality of the cervical spine. Dictated by: Jorge A Chambers M.D. on 10/18/2022 at 14:22 Approved by: Jorge A Chambers M.D. on 10/18/2022 at 14:24
[2022-10-18 13:55] LABS: Add Manual Diff / Slide Review NO; Basophils Absolute Auto 100 /uL (0-100); Basophils Percent Auto 1.3 % (0-2); Eosinophils Absolute Auto 300 /uL (0-450); Hematocrit 39.9 % (41-53); Lymphocytes Absolute Auto 1900 /uL (1100-4500); Lymphocytes Percent Auto 37.1 % (25-40); Mean Corpuscular HGB Conc 35.2 % (30-36); Mean Corpuscular Hemoglobin 31.1 PG (26-34); Mean Corpuscular Volume 88.5 fL (80-100); Monocytes Absolute Auto 400 /uL (0-900); Monocytes Percent Auto 7.7 % (3-14); Neutrophils Absolute Auto 2500 /uL (1500-7000); Neutrophils Percent Auto 48.9 % (50-75); Platelet Count 161 X10^3/uL (150-400); Red Blood Cell Count 4.51 X10^6/uL (4.5-5.9); Red Cell Distribution Width 12.9 % (11.6-14.8); White Blood Cell Count 5.1 X10^3/uL (4.5-11.0)
[2022-10-18 14:09] LABS: Acetaminophen < 10 ug/mL (10-30); Alanine Aminotransferase 18 IU/L (<50); Albumin 4.2 g/dL (3.5-5.0); Albumin Globulin Ratio 1.6 (1.0-2.8); Alkaline Phosphatase 36 U/L (38-126); Aspartate Aminotransferase 16 IU/L (17-59); BUN Creatinine Ratio 22.1 (6-22); Bilirubin Total 0.4 mg/dL (0.2-1.3); Blood Urea Nitrogen 19 mg/dL (9-20); Calcium 8.8 mg/dL (8.4-10.2); Carbon Dioxide 23 mmol/L (22-32); Chloride 108 mmol/L (98-107); Estimated Glomerular Filt Rate > 60 mL/min (>60); Ethanol (ETOH) < 10 mg/dL; Globulin 2.6 g/dL (1.7-4.1); Glucose 77 mg/dL (70-100); HEMOLYSIS 21 (0-50); Lipase 70 U/L (23-300); Potassium 4.1 mmol/L (3.4-5.1); Salicylate < 1.0 mg/dL (<20); Sodium 139 mmol/L (137-145); Total Protein 6.8 g/dL (6.3-8.2)
[2022-10-18] MEDS: SODIUM CHLORIDE 0.9% 1,000 ML 125 ML IV (14:11)
[2022-10-18 15:34] LABS: Appearance Urine UA CLEAR; Bilirubin Urine UA NEGATIVE (NEGATIVE); Color Urine UA YELLOW; Glucose Urine UA NEGATIVE (Negative); Ketones Urine UA NEGATIVE (NEGATIVE); Leukocyte Esterase Urine UA NEGATIVE (NEGATIVE); Nitrite Urine UA NEGATIVE (Negative); Occult Blood Urine UA NEGATIVE (Negative); Protein Urine UA NEGATIVE (Negative); Specific Gravity Urine UA <=1.005 (1.000-1.035); Urobilinogen Urine UA 0.2 E.U./dL (0.2); pH Urine UA 5.5 (4.5-8.0)
[2022-10-18 15:41] LABS: Bacteria Urine None Seen; Culture Indicated Urine Cult Not Indicated; RBC Urine None Seen (0-5/HPF); Squamous Epithelial Cell Urine 1-5 /HPF (0-5/HPF); WBC Urine None Seen (0-5/HPF)
[2022-10-18 15:42] LABS: UR Morphine/Opiate cutoff 300 Negative (Negative); Ur Creatinine Normal (Normal); Ur Specific Gravity Normal (Normal); Urine Amphetamines Negative (Negative); Urine Barbiturates Negative (Negative); Urine Benzodiazepines Positive (Negative); Urine Cocaine Negative (Negative); Urine MDMA Negative (Negative); Urine Methadone Negative (Negative); Urine Methamphetamines Negative (Negative); Urine Oxycodone Negative (Negative); Urine Phencyclidine Negative (Negative); Urine Tetrahydrocannabinol Positive (Negative); Urine Tricyclic Antidepressant Negative (Negative); Urine pH Normal (Normal)
--- NOTE | 2022-10-18 16:14 | PC.NURSE ---
Per IT SUPPORT SPECIALIST patient ambulated in room with shuffled gait, drowsy.
--- NOTE | 2022-10-18 17:27 | PC.NURSE ---
Patient ambulated in hallway independently with slow steady gait.
--- NOTE | 2022-10-18 17:38 | PC.NURSE ---
pt ambulted independently w/o difficulty.
== END 2022-10-18 17:40 | disposition home or self-care (01) ==
PROVIDERS: Emergency Provider Emergency Medicine; PCP Family Medicine
DX: F12.929 Cannabis use, unspecified with intoxication, unspecified (principal); R00.1 Bradycardia, unspecified
CPT/HCPCS: 36415; 70450; 72125; 80053; 80305; 80320; 80329; 81001; 83690; 85025; 93005; 93010; 96360; 96361; 99284; G0480

== ENCOUNTER 2023-05-15 05:12 | Emergency (ER) | payer OTHER, SELFPAY ==
[2022-06-27 17:19] VITALS: BMI 29.0
[2023-05-15 05:20] VITALS: BP 167/78; PULSE 78; RESP 20; TEMP 37.3; O2SAT 100; BMI 25.2
--- NOTE | 2023-05-15 05:27 | ED.BACK ---
HPI - Back Pain/Injury General Chief Complaint: Back Pain/Injury Stated Complaint: back pain from neck to rt leg Time Seen by Provider: 05/15/23 05:16 History of Present Illness HPI Narrative: 58-year-old male with history CAD s/p CABG x4 in 2010, previous CVA with L sided weakness, polysubstance abuse, tobacco abuse, hx osteomyelitis in 2018 presents ambulatory from home for pain up and down his entire back. Patient states that he was vacuuming his apartment last night and afterwards he notes pain on the right-hand side. Pain is from the bottom of his neck to the top of his bottom. Normally is able to take Tylenol and Motrin for pain, this time it did not help and he is here today for pain control. States he occasionally notices a twinge go from the top of his right buttock to his leg. Denies saddle anesthesia, denies bowel or bladder incontinence. Patient walked several blocks here from his apartment. Related Data Home Medications Medication Instructions Recorded Confirmed lisinopril 20 mg tablet 20 mg PO DAILY 07/15/18 08/26/22 atorvastatin 80 mg tablet 80 mg PO BEDTIME 01/23/20 08/26/22 metoprolol succinate 25 mg capsule 25 mg PO DAILY 01/23/20 08/26/22 sprinkle, ext. release 24 hr spironolactone 25 mg tablet 12.5 mg PO DAILY 07/04/21 08/26/22 tamsulosin 0.4 mg capsule 0.4 mg PO DAILY 07/04/21 08/26/22 Previous Rx's Medication Instructions Recorded aspirin 81 mg tablet,delayed 81 mg PO DAILY #30 tabs 06/20/21 release albuterol sulfate 90 mcg/actuation 2 inh inhalation Q4-6H PRN 12/30/21 aerosol inhaler shortness of breath or wheezing #6.7 grams diazepam 5 mg tablet 5 mg PO BID #60 tabs 10/09/22 bupropion HCl 150 mg 24 hr tablet, See Rx Instructions .Route 01/21/23 extended release .COMPLEX #90 tabs gabapentin 600 mg tablet See Rx Instructions .Route 01/21/23 .COMPLEX #90 tabs hydroxyzine pamoate 25 mg capsule See Rx Instructions .Route 02/20/23 .COMPLEX PRN Anxiety #180 caps olanzapine 20 mg tablet 20 mg PO BEDTIME #30 tabs 02/20/23 methocarbamol 500 mg tablet 500 mg PO QID #60 tabs 05/15/23 Allergies Allergy/AdvReac Type Severity Reaction Status Date / Time No Known Drug Allergies Allergy Verified 10/17/22 13:04 Review of Systems Review of Systems Narrative: Negative except as noted above Patient History Medical History Tobacco use Bronchitis Chronic bronchitis Hyperlipidemia 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) Coronary artery disease Discitis Anxiety Acute osteomyelitis of lumbar spine HTN (hypertension) Surgical History H/O valvuloplasty S/P CABG x 4 Family History Grandfather Heart attack Family/Other Heart attack Social History household members: family Smoking Status: Current every day smoker alcohol intake: former Smoking Status: Current every day smoker tobacco type: cigarettes alcohol intake frequency: other Substance Use Type: marijuana Exam Initial Vital Signs Initial Vital Signs: Vital Signs Temperature 99.2 F 05/15/23 05:20 Pulse Rate 78 05/15/23 05:20 Respiratory Rate 20 05/15/23 05:20 Blood Pressure 167/78 H 05/15/23 05:20 Pulse Oximetry 100 05/15/23 05:20 Oxygen Delivery Method Room Air 05/15/23 05:20 Const: Awake, alert, no acute distress, appears older than stated age Cardiac: regular rate, regular rhythm RESP: unlabored, clear bilaterally, no wheezing GI: Atraumatic, soft, nontender, nondistended, no rebound, no guarding MSK back: No step-offs, no deformity, no midline tenderness, right-sided paraspinal muscle tenderness along back Skin: Warm, Dry, intact, no rashes Neuro: AO x3, CN II-XII grossly intact, moves all extremities, gait normal Psych: affect normal, mood normal, not suicidal, not homicidal Course Orders Ordered: Discontinued Medications Dexamethasone (Dexamethasone 10 Mg/Ml Vial) 10 mg IV NOW ONE Stop: 05/15/23 05:27 Last Admin: 05/15/23 05:55 Dose: 10 mg Documented By: SB Acetaminophen (Ofirmev) 1,000 mg in 100 mls @ 400 mls/hr IV NOW ONE Stop: 05/15/23 05:40 Last Infusion: 05/15/23 06:13 Dose: 0 mls/hr Documented By: Admin: 05/15/23 05:54 Dose: 400 mls/hr Documented By: BEN Sodium Chloride (Normal Saline 0.9%) 1,000 mls @ 1,000 mls/hr IV BOLUS ONE Stop: 05/15/23 06:25 Last Infusion: 05/15/23 06:28 Dose: Infused Documented By: Admin: 05/15/23 05:55 Dose: 1,000 mls/hr Documented By: BEN Ketorolac Tromethamine (Ketorolac 30 Mg/Ml Vial) 15 mg IV NOW ONE Stop: 05/15/23 05:27 Last Admin: 05/15/23 05:55 Dose: 15 mg Documented By: BEN Lidocaine (Lidocaine 5% Patch) 1 each TOP NOW ONE Stop: 05/15/23 05:27 Last Admin: 05/15/23 05:54 Dose: 1 each Documented By: BEN Methocarbamol (Methocarbamol 500 Mg Tablet) 750 mg PO NOW ONE Stop: 05/15/23 05:27 Last Admin: 05/15/23 05:40 Dose: 750 mg Documented By: BEN Vital Signs Vital signs: Vital Signs - 8 hr 05/15/23 05:20 05/15/23 05:30 05/15/23 05:32 Temperature 99.2 F Pulse Rate 78 63 63 Respiratory Rate 20 16 17 Blood Pressure 167/78 H Pulse Oximetry 100 98 98 Oxygen Delivery Method Room Air Room Air Room Air 05/15/23 05:32 05/15/23 06:00 Temperature Pulse Rate 59 L Respiratory Rate Blood Pressure 140/75 140/75 Pulse Oximetry 98 Oxygen Delivery Method Room Air MDM - Back Pain/Injury Differential Diagnosis Differential diagnosis: Likely lumbar radiculopathy, sciatica and strain of lumbar region MDM Narrative Medical decision making narrative: Back strain after vacuuming last night. No trauma, no neurologic deficits, no signs or symptoms of cauda equina. Patient was ambulatory from his house to the ED without difficulty. There is no midline tenderness, no accident or injury, at this time there is no indication for any advanced imaging. Patient given numerous nonnarcotic medications for pain. No reported relief in pain, however narcotics are not indicated and not advised in patient with polysubstance abuse and benign exam. Patient counseled on supportive care at home. Muscle relaxers sent to pharmacy of choice. Discharge Plan Departure Patient Disposition: Home Clinical Impression: Back pain, Activity involving vacuuming Instructions: DI for Low Back Pain Prescriptions: New methocarbamol 500 mg tablet 500 mg PO QID Qty: 60 0RF No Action atorvastatin 80 mg tablet 80 mg PO BEDTIME Hold Instructions: Dimissed from Clinic 10/23/2022 metoprolol succinate 25 mg capsule,sprinkle,ER 24hr 25 mg PO DAILY Hold Instructions: Dimissed from Clinic 10/23/2022 spironolactone 25 mg tablet 12.5 mg PO DAILY Hold Instructions: Dimissed from Clinic 10/23/2022 Rx Instructions: Take one half tablet by mouth daily tamsulosin 0.4 mg capsule 0.4 mg PO DAILY Hold Instructions: Dimissed from Clinic 10/23/2022 diazepam 5 mg tablet 5 mg PO BID Qty: 60 3RF Hold Instructions: Dimissed from Clinic 10/23/2022 gabapentin 600 mg tablet See Rx Instructions .ROUTE .COMPLEX Qty: 90 5RF Hold Instructions: Dimissed from Clinic 10/23/2022 Dose Instruction: TAKE 1 TABLET BY MOUTH THREE TIMES A DAY Rx Instructions: TAKE 1 TABLET BY MOUTH THREE TIMES A DAY bupropion HCl 150 mg tablet extended release 24 hr See Rx Instructions .ROUTE .COMPLEX Qty: 90 5RF Hold Instructions: Dimissed from Clinic 10/23/2022 Dose Instruction: TAKE 3 TABLETS BY MOUTH EVERY MORNING Rx Instructions: TAKE 3 TABLETS BY MOUTH EVERY MORNING olanzapine 20 mg tablet 20 mg PO BEDTIME Qty: 30 2RF Hold Instructions: Dimissed from Clinic 10/23/2022 hydroxyzine pamoate 25 mg capsule See Rx Instructions .ROUTE .COMPLEX PRN (Reason: Anxiety) Qty: 180 0RF Hold Instructions: Dimissed from Clinic 10/23/2022 Rx Instructions: TAKE ONE TO TWO CAPSULES BY MOUTH THREE TIMES DAILY NEEDED FOR FOR SEVERE ANXIETY albuterol sulfate 90 mcg/actuation HFA aerosol inhaler 2 inh inhalation Q4-6H PRN (Reason: shortness of breath or wheezing) Qty: 6.7 3RF Hold Instructions: Dimissed from Clinic 10/23/2022 aspirin 81 mg Tablet,Delayed Release (Dr/Ec) 81 mg PO DAILY Qty: 30 0RF Hold Instructions: Dimissed from Clinic 10/23/2022 lisinopril 20 mg tablet 20 mg PO DAILY Hold Instructions: Dimissed from Clinic 10/23/2022 Referrals: Miscellaneous,Doctor, MD [Primary Care Provider] - Stand Alone Forms: Patient Portal/API
[2023-05-15 05:30] VITALS: PULSE 63; RESP 16; O2SAT 98
[2023-05-15 05:32] VITALS: BP 140/75; PULSE 63; RESP 17; O2SAT 98
[2023-05-15] MEDS: methocarbamoL 500 MG TABLET 750 MG PO (05:40)
[2023-05-15] MEDS: LIDOCAINE 5% PATCH 1 EACH TOP (05:54)
[2023-05-15] MEDS: ACETAMINOPHEN IV 1,000 MG/100 ML VIAL 400 MG IV (05:54)
[2023-05-15] MEDS: KETOROLAC 30 MG/ML VIAL 15 MG IV (05:55)
[2023-05-15] MEDS: SODIUM CHLORIDE 0.9% 1,000 ML 1000 ML IV (05:55)
[2023-05-15] MEDS: DEXAMETHASONE 10 MG/ML VIAL IV (05:55)
[2023-05-15 06:00] VITALS: BP 140/75; PULSE 59; O2SAT 98
[2023-05-15 06:34] VITALS: BP 145/100; PULSE 67; RESP 16; O2SAT 98
== END 2023-05-15 06:41 | disposition home or self-care (01) ==
PROVIDERS: Emergency Provider Emergency Medicine
DX: M54.9 Dorsalgia, unspecified (principal); Y93.E3 Activity, vacuuming; Z79.899 Other long term (current) drug therapy
CPT/HCPCS: 36415; 96365; 96375; 99284; J0136; J1100; J1885

== ENCOUNTER 2023-08-27 08:26 | Emergency (ER) | payer OTHER, SELFPAY ==
[2022-06-27 17:19] VITALS: BMI 29.0
[2023-08-27 08:35] VITALS: BP 132/71; PULSE 86; RESP 20; TEMP 36.4; O2SAT 98; BMI 25.0
--- NOTE | 2023-08-27 09:17 | ED.ANXIETY ---
HPI - Anxiety General Chief Complaint: Anxiety Stated Complaint: Lower stomach pain, Anxiety Time Seen by Provider: 08/27/23 09:16 Source: patient Mode of arrival: Ambulatory Limitations: no limitations History of Present Illness HPI narrative: 58-year-old male with history of hypertension, dyslipidemia, prior TIA, bipolar disorder who presents with concern of anxiety and would like refill of his diazepam. He describes some lower abdominal pain which he states started when his anxiety started. He denies fevers or chills. He states pains lower. He denies any nausea or vomiting. He denies any diarrhea or constipation, he denies any dysuria, urgency frequency or hematuria no back or flank pain. No passing out. Patient states that he has run out of his medications he is also run out of some of his other blood pressure and cholesterol medications but does not know the names or the amounts. He does use tobacco daily, does use marijuana occasional alcohol. He states he has been trying to set up a primary care appointment but has been unsuccessful he does not have a phone currently works. He does have housing currently. He does not desire additional workup for his abdominal discomfort at this time. Related Data Home Medications Medication Instructions Recorded Confirmed lisinopril 20 mg tablet 20 mg PO DAILY 07/15/18 08/26/22 atorvastatin 80 mg tablet 80 mg PO BEDTIME 01/23/20 08/26/22 metoprolol succinate 25 mg capsule 25 mg PO DAILY 01/23/20 08/26/22 sprinkle, ext. release 24 hr spironolactone 25 mg tablet 12.5 mg PO DAILY 07/04/21 08/26/22 tamsulosin 0.4 mg capsule 0.4 mg PO DAILY 07/04/21 08/26/22 Previous Rx's Medication Instructions Recorded aspirin 81 mg tablet,delayed 81 mg PO DAILY #30 tabs 06/20/21 release albuterol sulfate 90 mcg/actuation 2 inh inhalation Q4-6H PRN 12/30/21 aerosol inhaler shortness of breath or wheezing #6.7 grams diazepam 5 mg tablet 5 mg PO BID #60 tabs 10/09/22 bupropion HCl 150 mg 24 hr tablet, See Rx Instructions .Route 01/21/23 extended release .COMPLEX #90 tabs gabapentin 600 mg tablet See Rx Instructions .Route 01/21/23 .COMPLEX #90 tabs hydroxyzine pamoate 25 mg capsule See Rx Instructions .Route 02/20/23 .COMPLEX PRN Anxiety #180 caps olanzapine 20 mg tablet 20 mg PO BEDTIME #30 tabs 02/20/23 methocarbamol 500 mg tablet 500 mg PO QID #60 tabs 05/15/23 diazepam 5 mg tablet 5 mg PO BID PRN anxiety #5 tabs 08/27/23 Allergies Allergy/AdvReac Type Severity Reaction Status Date / Time No Known Drug Allergies Allergy Verified 08/27/23 08:43 Review of Systems Review of Systems ROS Unobtainable: All systems reviewed & are unremarkable except as noted in HPI and below Patient History Medical History Tobacco use Bronchitis Chronic bronchitis Hyperlipidemia 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 Patient is standing in the room when I arrived. HEENT: Head normocephalic, atraumatic, EOMI, pupils reactive, face symmetric, moist mucous membranes NECK: Supple, full range of motion CARDIOVASCULAR: Regular rate and rhythm without murmurs, rubs or gallops. RESPIRATORY: Breath sounds equal bilaterally, no wheezes rales or rhonchi. ABDOMEN: Soft, nontender on exam. Normoactive bowel sounds all 4 quadrants. No guarding or rebound, rigidity, no mass, non-distended. : No CVA tenderness EXTREMITIES: Normal range of motion, no clubbing or edema. Neurovascularly intact NEUROLOGICAL: Cranial nerves II through XII grossly intact. Moving all extremities SKIN: Warm, dry, no petechiae, no rashes or lesions. Initial Vital Signs Initial Vital Signs: Vital Signs Temperature 97.6 F 08/27/23 08:35 Pulse Rate 86 08/27/23 08:35 Respiratory Rate 20 08/27/23 08:35 Blood Pressure 132/71 08/27/23 08:35 Pulse Oximetry 98 08/27/23 08:35 Oxygen Delivery Method Room Air 08/27/23 08:35 Course Orders Ordered: Discontinued Medications Ondansetron HCl (Ondansetron 4 Mg Odt) 4 mg SL NOW ONE Stop: 08/27/23 09:29 Last Admin: 08/27/23 09:33 Dose: 4 mg Documented By: NICHELLE Vital Signs Vital signs: Vital Signs - 8 hr 08/27/23 08:35 Temperature 97.6 F Pulse Rate 86 Respiratory Rate 20 Blood Pressure 132/71 Pulse Oximetry 98 Oxygen Delivery Method Room Air MDM - Anxiety MDM Narrative Medical decision making narrative: This is a 58-year-old male with known history of TIA, hypertension dyslipidemia who presents with complaint of feeling anxious out of his diazepam and some abdominal pain. Patient's exam is overall benign. He does not wish for additional workup although it was offered. Patient would like a refill of his diazepam. He is unclear on the exact dosage, he states he is out of his other medications but does not know which ones they are or the names other than they are for heart. Offered to try to set him up with a primary care appointment patient can have some further follow up as he states he missed several appointments with his old physician. He currently has housing but does not have an active working phone so we will try to set this up before he leaves the department. Called new provider line, patient has been dismissed from [address] [place] [address] and [facility]. Discharge Plan Departure Patient Disposition: Home Clinical Impression: Encounter for medication refill Activity Restrictions/Additional Instructions: Follow up with primary care. For future refills of your diazepam you must follow up with primary care. You may take 1 tablet twice daily was sent to [facility]. This medication can make you sleepy do not drive, perform hazardous activities or make any major decisions taking it. Please return for any new or worsening symptoms, new or worsening abdominal pain, fevers, vomiting, black or bloody stools or other concerns. Prescriptions: New diazepam 5 mg tablet 5 mg PO BID PRN (Reason: anxiety) Qty: 5 0RF No Action atorvastatin 80 mg tablet 80 mg PO BEDTIME Hold Instructions: Dimissed from Clinic 10/23/2022 metoprolol succinate 25 mg capsule,sprinkle,ER 24hr 25 mg PO DAILY Hold Instructions: Dimissed from Clinic 10/23/2022 spironolactone 25 mg tablet 12.5 mg PO DAILY Hold Instructions: Dimissed from Clinic 10/23/2022 Rx Instructions: Take one half tablet by mouth daily tamsulosin 0.4 mg capsule 0.4 mg PO DAILY Hold Instructions: Dimissed from Clinic 10/23/2022 diazepam 5 mg tablet 5 mg PO BID Qty: 60 3RF Hold Instructions: Dimissed from Clinic 10/23/2022 gabapentin 600 mg tablet See Rx Instructions .ROUTE .COMPLEX Qty: 90 5RF Hold Instructions: Dimissed from Clinic 10/23/2022 Dose Instruction: TAKE 1 TABLET BY MOUTH THREE TIMES A DAY Rx Instructions: TAKE 1 TABLET BY MOUTH THREE TIMES A DAY bupropion HCl 150 mg tablet extended release 24 hr See Rx Instructions .ROUTE .COMPLEX Qty: 90 5RF Hold Instructions: Dimissed from Clinic 10/23/2022 Dose Instruction: TAKE 3 TABLETS BY MOUTH EVERY MORNING Rx Instructions: TAKE 3 TABLETS BY MOUTH EVERY MORNING olanzapine 20 mg tablet 20 mg PO BEDTIME Qty: 30 2RF Hold Instructions: Dimissed from Clinic 10/23/2022 hydroxyzine pamoate 25 mg capsule See Rx Instructions .ROUTE .COMPLEX PRN (Reason: Anxiety) Qty: 180 0RF Hold Instructions: Dimissed from Clinic 10/23/2022 Rx Instructions: TAKE ONE TO TWO CAPSULES BY MOUTH THREE TIMES DAILY NEEDED FOR FOR SEVERE ANXIETY albuterol sulfate 90 mcg/actuation HFA aerosol inhaler 2 inh inhalation Q4-6H PRN (Reason: shortness of breath or wheezing) Qty: 6.7 3RF Hold Instructions: Dimissed from Clinic 10/23/2022 aspirin 81 mg Tablet,Delayed Release (Dr/Ec) 81 mg PO DAILY Qty: 30 0RF Hold Instructions: Dimissed from Clinic 10/23/2022 methocarbamol 500 mg tablet 500 mg PO QID Qty: 60 0RF lisinopril 20 mg tablet 20 mg PO DAILY Hold Instructions: Dimissed from Clinic 10/23/2022 Referrals: Miscellaneous,Doctor, MD [Primary Care Provider] - Stand Alone Forms: Patient Portal/API
[2023-08-27] MEDS: ONDANSETRON 4 MG ODT SL (09:33)
[2023-08-27 09:54] VITALS: BP 167/85; PULSE 78; O2SAT 99
== END 2023-08-27 09:54 | disposition home or self-care (01) ==
PROVIDERS: Emergency Provider Emergency Medicine
DX: Z76.0 Encounter for issue of repeat prescription (principal)
CPT/HCPCS: 99283

== ENCOUNTER → 2023-09-24 08:38 | Outpatient (CLI) | payer OTHER, SELFPAY ==
[2022-06-27 17:19] VITALS: BMI 29.0
--- NOTE | 2023-09-24 08:40 | DI.RAD.S_ITS ---
PROCEDURE: XR CERVICAL SPINE 4V OR 5V INDICATIONS: NECK PAIN TECHNIQUE: 5 views of the cervical spine acquired. COMPARISON: [facility], CR, XR CERVICAL SPINE 4V OR 5V, 06/11/2018, 17:45. FINDINGS: Bones: No fractures or dislocations to the C7-T1 level. There are multilevel degenerative changes of the cervical spine with facet and uncovertebral arthropathy, disc height loss with degenerative endplate changes and spurring. Diffusely decreased osseous mineralization. Oblique images demonstrate multilevel bony foraminal stenoses, most pronounced within the mid and upper cervical spine bilaterally. Soft tissues: No prevertebral soft tissue swelling. IMPRESSION: Multilevel degenerative changes of the cervical spine as described above. Dictated by: Godfrey Way M.D. on 09/24/2023 at 9:57 Approved by: Godfrey Way M.D. on 09/24/2023 at 9:58
--- NOTE | 2023-09-24 08:40 | DI.RAD.S_ITS ---
PROCEDURE: XR LUMBAR SPINE MIN 4V INDICATIONS: LOW BACK PAIN TECHNIQUE: 5 views of the lumbar spine were acquired, including bilateral oblique views. COMPARISON: , CR, XR LUMBAR SPINE 2-3V, 08/26/2022, 11:11. , CR, XR LUMBAR SPINE 2-3V, 06/13/2021, 8:06. FINDINGS: Bones: 5 nonrib-bearing vertebrae are present. Mild dextrocurvature of the lumbar spine. There is multilevel facet arthropathy, worse at L4-5 and L5-S1. Multilevel disc height loss with degenerative endplate changes and spurring is present. This is most pronounced at L1-L2. No vertebral body compression fractures. No suspicious bony lesions. Diffusely decreased osseous mineralization. Soft tissues: Overlying bowel gas pattern is normal. No suspicious soft tissue calcifications. Atherosclerotic vascular calcifications. Oblique images: No definite pars defects. IMPRESSION: Moderate multilevel degenerative changes of the lumbar spine are redemonstrated. No acute osseous abnormalities. Dictated by: Godfrey Way M.D. on 09/24/2023 at 9:55 Approved by: Godfrey Way M.D. on 09/24/2023 at 9:56
== END ==
PROVIDERS: PCP Student in an Organized Health Care Education/Training Program; Referring Provider Anesthesiology; Visit Provider Anesthesiology
DX: M47.27 Other spondylosis with radiculopathy, lumbosacral region (principal); M47.812 Spondylosis without myelopathy or radiculopathy, cervical region; M47.26 Other spondylosis with radiculopathy, lumbar region; M54.2 Cervicalgia
CPT/HCPCS: 72050; 72110

== ENCOUNTER 2023-10-23 13:51 | Emergency (ER) | payer OTHER, MEDICAID, SELFPAY ==
[2022-06-27 17:19] VITALS: BMI 29.0
[2023-10-23] VITALS (45 sets, daily range): BP systolic 73–179; BP diastolic 39–84; PULSE 58–67; RESP 14–24; TEMP 36.7; O2SAT 88–100; BMI 22.7
[2023-10-23] MEDS: SODIUM CHLORIDE 0.9% 1,000 ML 1000 ML IV ×2 (13:55→14:22)
--- NOTE | 2023-10-23 14:03 | DI.RAD.S_ITS ---
PROCEDURE: XR CHEST 1V INDICATIONS: chest pain TECHNIQUE: One view of the chest was acquired. COMPARISON: [facility], CT, CT ANGIO CHEST ABDOMEN PELVIS, 10/23/2023, 15:00. FINDINGS: Surgical changes and devices: Sternal wires and valve replacement. Lungs and pleura: Lungs are clear. No pleural effusions or pneumothorax. Mediastinum: Mediastinal contours appear normal. Heart size is enlarged. Bones and chest wall: No suspicious bony lesions. Overlying soft tissues appear unremarkable. IMPRESSION: No acute pulmonary process. Dictated by: Kathleen Zheng M.D. on 10/23/2023 at 16:32 Approved by: Kathleen Zheng M.D. on 10/23/2023 at 16:32
--- NOTE | 2023-10-23 14:03 | EKG_ITS ---
[address] [address] Test Date: 2023-10-23 Pat Name: Fidel Erwin Department: Room: Gender: Male Vegetable [employer]: ELIE : 1965 Requested By: Order Number: [id number] Reading MD: Ant Childs Measurements Intervals [place] Rate: 64 P: 13 W[place]: 182 QRS: -32 QRSD: 118 T: 28 QT: 400 QTc: 412 Interpretive Statements Normal sinus rhythm Left axis deviation Minimal voltage criteria for LVH, may be normal variant ( [place] product ) Possible Lateral infarct , age undetermined Inferior infarct , age undetermined Electronically Signed On 10-27-2023 9:00:05 PDT by Ant Childs
--- NOTE | 2023-10-23 14:11 | ED.SYNCOPE ---
HPI - Syncope General Chief Complaint: Syncope Stated Complaint: Syncope Time Seen by Provider: 10/23/23 14:11 Source: patient and EMS Mode of arrival: EMS Limitations: no limitations History of Present Illness HPI narrative: 58-year-old male history of hypertension, dyslipidemia, prior stroke with left-sided weakness, bipolar disorder, coronary artery disease with status post CABG x4 in 2010, tobacco use, polysubstance abuse who presents with complaint of syncopal episode. Patient was not going to be local [employer] restaurant that he states he would walk 2. He states he felt dizzy before sort of dizzy while walking there today. Patient sat back in his chair and passed out after he had gotten to stand up. He had eaten yet. Glucose in the field was reported to be 120s. Patient states he has pain in his abdomen, states it has been there for several days does radiate to his back. Denies any headache, denies fevers, denies active chest pain, denies shortness of breath, denies any nausea or vomiting. Denies any issues with bowel movements or urination. No incontinence. No numbness tingling weakness of extremities. He denies swelling in his extremities. States he is hungry and he would like something to eat. States he does feel still feel dizzy. Patient states he is on medications, he has his meds in a premade packaging. States he does use tobacco, denies alcohol, states uses marijuana denies other recreational drugs. Primary care doctor as Dr. Saravia. Related Data Home Medications Medication Instructions Recorded Confirmed lisinopril 20 mg tablet 20 mg PO DAILY 10/06/23 10/06/23 Previous Rx's Medication Instructions Recorded albuterol sulfate 90 mcg/actuation 2 inh inhalation Q4-6H PRN 12/30/21 aerosol inhaler shortness of breath or wheezing #6.7 grams aspirin 81 mg tablet,delayed 81 mg PO DAILY #90 tabs 09/15/23 release (Adult Aspirin Regimen) atorvastatin 80 mg tablet 80 mg PO BEDTIME #90 tabs 09/15/23 bupropion HCl 150 mg 24 hr tablet, See Rx Instructions .Route 09/15/23 extended release .COMPLEX #90 tabs cyclobenzaprine 5 mg tablet 5 mg PO TID PRN muscle spasm #90 09/15/23 tabs gabapentin 600 mg tablet See Rx Instructions .Route 09/15/23 .COMPLEX #90 tabs hydroxyzine pamoate 25 mg capsule See Rx Instructions .Route 09/15/23 .COMPLEX PRN Anxiety #180 caps metoprolol succinate 25 mg capsule 25 mg PO DAILY #90 ea 09/15/23 sprinkle, ext. 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 No diaphoresis. No pallor. HEENT: Atraumatic, pupils are equal round reactive to light, extraocular movements are intact, nares are clear, there is no conjunctival pallor. Throat is clear without any exudates, erythema, tonsillar enlargement or uvular deviation, HEART: Regular rate and rhythm without murmur, clicks, rubs. Pulses are equal in upper and lower extremities LUNGS:Lungs clear to auscultation, no wheezes, rales, crackles, chest moves symmetrically, no tachypnea accessory muscle use ABD:bowel sounds normal, soft, non-tender, no guarding, rebound, rigidity, no masses noted, no hepatosplenomegaly :No CVA tenderness MSCL: Non-tender, no muscle atrophy, patient moves all 4 extremities but left upper and lower extremity slightly weaker compared to right. Patient states this is normal. NEURO:CN 2-12 intact, sensation normal, patient has slight slurring of speech. Initial Vital Signs Initial Vital Signs: Vital Signs Temperature 98.1 F 10/23/23 13:51 Pulse Rate 67 10/23/23 13:51 Respiratory Rate 18 10/23/23 13:51 Blood Pressure 82/46 L 10/23/23 13:51 Pulse Oximetry 97 10/23/23 13:51 Oxygen Delivery Method Room Air 10/23/23 13:51 Course Orders Ordered: ED Orders 10/23/23 13:45 Complete Blood Count AUTO DIFF Stat Comprehensive Metabolic Panel Stat ETOH [Ethanol (ETOH)] Stat Lactate (Lactic Acid) Stat Lipase Stat Magnesium Stat NT-proBNP (BNP-Adult 18+) Stat PTT Partial Thromboplastin Fco Stat Procalcitonin Stat Prothrombin Time INR Stat Troponin & CK Cardiac Panel Stat 10/23/23 14:01 Consult to BOTTLE CAPPING MACHINE OPERATOR - Corn Cutter Operator Stat 10/23/23 14:03 XR chest 1V Stat EKG-12 Lead Stat 10/23/23 14:20 CT angio chest abdomen pelvis Stat 10/23/23 14:50 Type and Screen Stat 10/23/23 16:05 Urine Drug Screen, Rapid Stat 10/23/23 16:50 Blood Culture Stat Trop I [Troponin I] Stat Discontinued Medications Aspirin (Aspirin 81 Mg Chew Tab) 324 mg PO NOW ONE Stop: 10/23/23 14:04 Last Admin: 10/23/23 15:37 Dose: Not Given Documented By: BRETT Fentanyl (Fentanyl 100 Mcg/2 Ml Inj) 25 mcg IV NOW ONE Stop: 10/23/23 16:09 Last Admin: 10/23/23 16:23 Dose: 25 mcg Documented By: BRETT Sodium Chloride (Normal Saline 0.9%) 1,000 mls @ 1,000 mls/hr IV BOLUS ONE Stop: 10/23/23 15:18 Last Infusion: 10/23/23 14:24 Dose: Infused Documented By: Admin: 10/23/23 13:55 Dose: 1,000 mls/hr Documented By: RB Sodium Chloride (Normal Saline 0.9%) 1,000 mls @ 1,000 mls/hr IV BOLUS ONE Stop: 10/23/23 15:19 Last Infusion: 10/23/23 14:42 Dose: Infused Documented By: Admin: 10/23/23 14:22 Dose: 1,000 mls/hr Documented By: RB NOREPINEPHRINE BITARTRATE/D5W (Levophed) 4 mg in 250 mls @ 23.984 mls/hr IV TITRATE LEONA; Protocol Last Titration: 10/23/23 17:57 Dose: Infused Documented By: Titration: 10/23/23 15:48 Dose: 0 mcg/kg/min, 0 mls/hr Documented By: Admin: 10/23/23 15:33 Dose: 0.03 mcg/kg/min, 7.5 mls/hr Documented By: Titration: 10/23/23 15:33 Dose: Infused Documented By: Titration: 10/23/23 14:55 Dose: 0 mcg/kg/min, 0 mls/hr Documented By: Admin: 10/23/23 14:40 Dose: 0.1 mcg/kg/min, 23.984 mls/hr Documented By: BRETT Sodium Chloride (Normal Saline 0.9%) 1,000 mls @ 125 mls/hr IV CONT LEONA Last Infusion: 10/23/23 17:57 Dose: Infused Documented By: Infusion: 10/23/23 17:55 Dose: 0 mls/hr Documented By: Admin: 10/23/23 16:23 Dose: 125 mls/hr Documented By: BRETT Vital Signs Vital signs: Vital Signs - 8 hr 10/23/23 13:51 10/23/23 14:07 10/23/23 14:08 Temperature 98.1 F Pulse Rate 67 64 Respiratory Rate 18 21 Blood Pressure 82/46 L 74/43 L Pulse Oximetry 97 93 Oxygen Delivery Method Room Air 10/23/23 14:08 10/23/23 14:10 10/23/23 14:10 Temperature Pulse Rate 65 64 Respiratory Rate 21 24 Blood Pressure 73/44 L Pulse Oximetry 93 93 Oxygen Delivery Method 10/23/23 14:14 10/23/23 14:14 10/23/23 14:15 Temperature Pulse Rate 64 64 Respiratory Rate 22 21 Blood Pressure 80/43 L Pulse Oximetry 97 97 Oxygen Delivery Method 10/23/23 14:15 10/23/23 14:20 10/23/23 14:20 Temperature Pulse Rate 64 Respiratory Rate 20 Blood Pressure 76/39 L 74/45 L Pulse Oximetry 97 Oxygen Delivery Method 10/23/23 14:33 10/23/23 14:33 10/23/23 14:35 Temperature Pulse Rate 66 Respiratory Rate 20 Blood Pressure 80/45 L 74/45 L Pulse Oximetry 98 Oxygen Delivery Method 10/23/23 14:35 10/23/23 14:38 10/23/23 14:38 Temperature Pulse Rate 65 64 Respiratory Rate 20 18 Blood Pressure 73/45 L Pulse Oximetry 97 100 Oxygen Delivery Method 10/23/23 14:40 10/23/23 14:40 10/23/23 14:43 Temperature Pulse Rate 62 Respiratory Rate 17 Blood Pressure 110/78 146/67 H Pulse Oximetry 99 Oxygen Delivery Method 10/23/23 14:43 10/23/23 14:45 10/23/23 14:45 Temperature Pulse Rate 66 61 Respiratory Rate 14 17 Blood Pressure 169/76 H Pulse Oximetry 98 100 Oxygen Delivery Method 10/23/23 14:48 10/23/23 14:48 10/23/23 14:49 Temperature Pulse Rate 60 Respiratory Rate 17 Blood Pressure 179/84 H 150/74 H Pulse Oximetry 100 Oxygen Delivery Method 10/23/23 14:49 10/23/23 14:50 10/23/23 14:50 Temperature Pulse Rate 63 64 Respiratory Rate 17 17 Blood Pressure 136/64 Pulse Oximetry 99 99 Oxygen Delivery Method 10/23/23 14:52 10/23/23 14:52 10/23/23 14:55 Temperature Pulse Rate 64 Respiratory Rate 15 Blood Pressure 116/66 102/68 Pulse Oximetry 99 Oxygen Delivery Method 10/23/23 14:55 10/23/23 14:57 10/23/23 14:57 Temperature Pulse Rate 64 62 Respiratory Rate 19 19 Blood Pressure 91/53 L Pulse Oximetry 100 100 Oxygen Delivery Method 10/23/23 15:00 10/23/23 15:02 10/23/23 15:02 Temperature Pulse Rate 62 63 Respiratory Rate 20 Blood Pressure 99/55 L Pulse Oximetry 100 100 Oxygen Delivery Method 10/23/23 15:03 10/23/23 15:03 10/23/23 15:05 Temperature Pulse Rate 65 Respiratory Rate 23 Blood Pressure 96/54 L 93/55 L Pulse Oximetry 100 Oxygen Delivery Method 10/23/23 15:05 10/23/23 15:08 10/23/23 15:08 Temperature Pulse Rate 65 63 Respiratory Rate 21 19 Blood Pressure 102/57 L Pulse Oximetry 99 100 Oxygen Delivery Method 10/23/23 15:10 10/23/23 15:10 10/23/23 15:14 Temperature Pulse Rate 63 Respiratory Rate 23 Blood Pressure 105/56 L 105/42 L Pulse Oximetry 100 Oxygen Delivery Method 10/23/23 15:14 10/23/23 15:15 10/23/23 15:15 Temperature Pulse Rate 66 65 Respiratory Rate 21 21 Blood Pressure 97/52 L Pulse Oximetry 99 Oxygen Delivery Method 10/23/23 15:18 10/23/23 15:18 10/23/23 15:20 Temperature Pulse Rate 62 61 Respiratory Rate 20 19 Blood Pressure 90/49 L Pulse Oximetry 100 100 Oxygen Delivery Method 10/23/23 15:20 10/23/23 15:25 10/23/23 15:29 Temperature Pulse Rate 61 61 Respiratory Rate 18 18 Blood Pressure 90/53 L Pulse Oximetry 97 96 Oxygen Delivery Method 10/23/23 15:29 10/23/23 15:30 10/23/23 15:30 Temperature Pulse Rate 61 Respiratory Rate 19 Blood Pressure 82/47 L 87/48 L Pulse Oximetry Oxygen Delivery Method 10/23/23 15:32 10/23/23 15:33 10/23/23 15:33 Temperature Pulse Rate 61 59 L Respiratory Rate 19 20 Blood Pressure 120/75 Pulse Oximetry 93 94 Oxygen Delivery Method 10/23/23 15:35 10/23/23 15:36 10/23/23 15:36 Temperature Pulse Rate 61 62 Respiratory Rate 18 19 Blood Pressure 154/66 H Pulse Oximetry 89 L 88 L Oxygen Delivery Method 10/23/23 15:38 10/23/23 15:38 10/23/23 15:40 Temperature 98.0 F Pulse Rate 61 Respiratory Rate 18 Blood Pressure 144/68 H Pulse Oximetry 89 L Oxygen Delivery Method 10/23/23 15:40 10/23/23 15:40 10/23/23 15:43 Temperature Pulse Rate 61 61 Respiratory Rate 18 17 Blood Pressure 140/67 Pulse Oximetry 88 L Oxygen Delivery Method 10/23/23 15:43 10/23/23 15:45 10/23/23 15:45 Temperature Pulse Rate 58 L Respiratory Rate 17 Blood Pressure 140/72 132/66 Pulse Oximetry Oxygen Delivery Method 10/23/23 15:48 10/23/23 15:48 10/23/23 15:50 Temperature Pulse Rate 62 62 Respiratory Rate 18 17 Blood Pressure 130/67 Pulse Oximetry 99 98 Oxygen Delivery Method 10/23/23 15:51 10/23/23 15:51 10/23/23 15:53 Temperature Pulse Rate 60 60 Respiratory Rate 18 17 Blood Pressure 96/51 L Pulse Oximetry 93 Oxygen Delivery Method 10/23/23 15:53 10/23/23 15:55 10/23/23 15:55 Temperature Pulse Rate 58 L Respiratory Rate 18 Blood Pressure 94/53 L 94/55 L Pulse Oximetry 97 Oxygen Delivery Method MDM - Syncope Lab Data 10/23/23 13:45 10/23/23 13:45 Labs: Lab Results 10/23/23 10/23/23 10/23/23 Range/Units 13:45 14:50 16:05 WBC 7.7 (4.5-11.0) X10^3/uL RBC 3.83 L (4.5-5.9) X10^6/uL Hgb 12.8 L (13.5-17.5) g/dL Hct 36.3 L (41-53) % MCV 94.9 (80-100) fL MCH 33.5 (26-34) PG MCHC 35.3 (30-36) % RDW 12.5 (11.6-14.8) % Plt Count 172 (150-400) X10^3/uL Neut % (Auto) 64.7 (50-75) % Lymph % (Auto) 26.4 (25-40) % [place] % (Auto) 3.7 (3-14) % Eos % (Auto) 4.5 H (2-4) % Baso % (Auto) 0.7 (0-2) % Neut # (Auto) 5000 (3179-5844) /uL Lymph # (Auto) 2000 (2248-2356) /uL [place] # (Auto) 300 (0-900) /uL Eos # (Auto) 300 (0-450) /uL Baso # (Auto) 100 (0-100) /uL PT 11.4 (9.4-12.5) SECONDS INR 1.0 (0.9-1.3) APTT 33 (25.1-36.5) SECONDS Sodium 139 (137-145) mmol/L Potassium 4.2 (3.4-5.1) mmol/L Chloride 110 H (98-107) mmol/L Carbon Dioxide 20 L (22-32) mmol/L BUN 56 H (9-20) mg/dL Creatinine 1.28 H (0.66-1.25) mg/dL Estimated GFR > 60 (>60) mL/min BUN/Creatinine Ratio 43.8 H (6-22) Glucose 106 (80-110) mg/dL Lactate 1.8 (0.7-2.1) mmol/L Calcium 8.6 (8.4-10.2) mg/dL Magnesium 2.0 (1.6-2.3) mg/dL Total Bilirubin 0.6 (0.2-1.3) mg/dL AST 17 (17-59) IU/L ALT 16 (<50) IU/L Alkaline Phosphatase 47 (38-126) U/L Total Creatine Kinase 107 (55-170) U/L Troponin I < 0.012 (0.01-0.034) ng/mL NT-Pro-B Natriuret Pep 254 H (<125) pg/mL Total Protein 7.0 (6.3-8.2) g/dL Albumin 4.3 (3.5-5.0) g/dL Globulin 2.7 (1.7-4.1) g/dL Albumin/Globulin Ratio 1.6 (1.0-2.8) Lipase 203 (23-300) U/L Procalcitonin 0.044 (<0.5) ng/mL U Opiates 300ng/mL cut Negative (Negative) Ur Oxycodone Screen Negative (Negative) Urine Methadone Screen Negative (Negative) Ur Barbiturates Screen Negative (Negative) U Tricyclic Antidepress Positive H (Negative) Ur Phencyclidine Scrn Negative (Negative) Ur Amphetamines Screen Negative (Negative) U Methamphetamines Scrn Negative (Negative) Ur MDMA Scrn (Ecstasy) Negative (Negative) U Benzodiazepines Scrn Positive H (Negative) Urine Cocaine Screen Negative (Negative) U Marijuana (THC) Screen Positive H (Negative) Urine pH Normal (Normal) Urine Specific [place] Normal (Normal) Ethyl Alcohol < 10 ( - 10) mg/dL Ur Creatinine Normal (Normal) Blood Type A Negative Antibody Screen Negative 10/23/23 Range/Units 16:50 WBC (4.5-11.0) X10^3/uL RBC (4.5-5.9) X10^6/uL Hgb (13.5-17.5) g/dL Hct (41-53) % MCV (80-100) fL MCH (26-34) PG MCHC (30-36) % RDW (11.6-14.8) % Plt Count (150-400) X10^3/uL Neut % (Auto) (50-75) % Lymph % (Auto) (25-40) % [place] % (Auto) (3-14) % Eos % (Auto) (2-4) % Baso % (Auto) (0-2) % Neut # (Auto) (3882-0195) /uL Lymph # (Auto) (5478-9124) /uL [place] # (Auto) (0-900) /uL Eos # (Auto) (0-450) /uL Baso # (Auto) (0-100) /uL PT (9.4-12.5) SECONDS INR (0.9-1.3) APTT (25.1-36.5) SECONDS Sodium (137-145) mmol/L Potassium (3.4-5.1) mmol/L Chloride (98-107) mmol/L Carbon Dioxide (22-32) mmol/L BUN (9-20) mg/dL Creatinine (0.66-1.25) mg/dL Estimated GFR (>60) mL/min BUN/Creatinine Ratio (6-22) Glucose (80-110) mg/dL Lactate (0.7-2.1) mmol/L Calcium (8.4-10.2) mg/dL Magnesium (1.6-2.3) mg/dL Total Bilirubin (0.2-1.3) mg/dL AST (17-59) IU/L ALT (<50) IU/L Alkaline Phosphatase (38-126) U/L Total Creatine Kinase (55-170) U/L Troponin I < 0.012 (0.01-0.034) ng/mL NT-Pro-B Natriuret Pep (<125) pg/mL Total Protein (6.3-8.2) g/dL Albumin (3.5-5.0) g/dL Globulin (1.7-4.1) g/dL Albumin/Globulin Ratio (1.0-2.8) Lipase (23-300) U/L Procalcitonin (<0.5) ng/mL U Opiates 300ng/mL cut (Negative) Ur Oxycodone Screen (Negative) Urine Methadone Screen (Negative) Ur Barbiturates Screen (Negative) U Tricyclic Antidepress (Negative) Ur Phencyclidine Scrn (Negative) Ur Amphetamines Screen (Negative) U Methamphetamines Scrn (Negative) Ur MDMA Scrn (Ecstasy) (Negative) U Benzodiazepines Scrn (Negative) Urine Cocaine Screen (Negative) U Marijuana (THC) Screen (Negative) Urine pH (Normal) Urine Specific [place] (Normal) Ethyl Alcohol ( - 10) mg/dL Ur Creatinine (Normal) Blood Type Antibody Screen Imaging Data Chest x-ray: Radiologist's Impression: [address] [address] XRay Report Signed Patient: Fidel Erwin MR#: [id number] : 1965 Acct:[id number] Age/Sex: 58 / M Date of Service: 10/23/23 Loc: ED Accession Number: [id number] Procedure: XR chest 1V Ordering Provider: Rody Fraire D.O. PROCEDURE: XR CHEST 1V INDICATIONS: chest pain TECHNIQUE: One view of the chest was acquired. COMPARISON: [facility], CT, CT ANGIO CHEST ABDOMEN PELVIS, 10/23/2023, 15:00. FINDINGS: Surgical changes and devices: Sternal wires and valve replacement. Lungs and pleura: Lungs are clear. No pleural effusions or pneumothorax. Mediastinum: Mediastinal contours appear normal. Heart size is enlarged. Bones and chest wall: No suspicious bony lesions. Overlying soft tissues appear unremarkable. IMPRESSION: No acute pulmonary process. Dictated by: Kathleen Zheng M.D. on 10/23/2023 at 16:32 Approved by: Kathleen Zheng M.D. on 10/23/2023 at 16:32 CT chest/abd/pelvis: Radiologist's Impression: Fidel Erwin??58??M??1965 ? Allergy/Adv: No Known Drug Allergies Close Chest/Abdomen/Pelvis CTA (Signed) Oscar Arauzderic - 10/23/23 Chest X-Ray (Signed) MarceKathleen - 10/23/23 Lumbar Spine X-Ray (Signed) WayGodfrey - 09/24/23 Cervical Spine X-Ray (Signed) WayGodfrey - 09/24/[address] (Signed) Jorge A Chambers - 10/18/[address] (Signed) Jorge A Chambers - 10/18/22 Chest X-Ray (Signed) DavontePavel - 10/17/22 Telemetry Strips 10/17/22 Echocardiogram Ultrasound (Signed) Shady Cadena - 10/14/22 Lumbar Spine X-Ray (Signed) Charlie Swann - 08/26/22 Knee X-Ray (Signed) Charlie Swann - 08/26/22 Telemetry Strips 06/27/22 Brain MRI (Signed) DavontePavel - 06/27/22 Chest X-Ray (Signed) CallIsmael - 06/27/22 Head/Neck CTA (Signed) Edie,Ismael - 06/27/[address] (Signed) Gene Figueroa - 06/27/22 CT Lung (Signed) Pavan Solomon - 10/09/21 Chest X-Ray (Signed) Ariel Graff - 10/06/21 Hip X-Ray (Signed) Suleman Rodriguez - 07/05/21 Chest X-Ray (Signed) Suleman Rodriguez - 07/05/[address] (Signed) Manjinder Ward - 06/28/21 Telemetry Strips 06/18/21 Brain MRI (Signed) Joseline Hernández - 06/18/21 Head/Neck CTA (Signed) Gris Hassan - 06/18/[address] (Signed) Gris Hassan - 06/18/21 Echocardiogram Ultrasound (Signed) Antonio Cadenau - 06/18/21 Lumbar Spine X-Ray (Signed) Call,Ismael - 06/13/21 Ankle X-Ray (Signed) Sonya,Gris - 12/14/20 Foot X-Ray (Signed) Sonya,Gris - 12/14/20 Wrist X-Ray (Signed) Sonya,Girs - 11/15/20 Tibia/Fibula X-Ray (Signed) Sonya,Gris - 11/15/20 Chest X-Ray (Signed) DavontePassaic - 08/01/20 Telemetry Strips 07/21/[address] (Signed) Gennaro Chou - 07/21/20 Brain MRI (Signed) Yoel Cuellar - 07/21/[address] (Signed) Vishnu Carter - 07/20/20 Ribs w/Chest X-Ray (Signed) Manjinder Ward - 04/16/20 Chest X-Ray (Signed) Kathleen Zheng - 01/02/20 Telemetry Strips 01/02/20 Chest/Abdomen X-ray (Signed) Kathleen Zheng - 12/27/19 Chest X-Ray (Signed) Gris Hassan - 09/30/19 Lumbar Spine X-Ray (Signed) RhonaCalixto - 09/24/19 Hip X-Ray (Signed) Calixto Melgoza - 09/24/19 Telemetry Strips 08/13/[address] (Signed) Pavan Solomon - 08/13/[address] (Signed) Pavan Solomon - 08/13/19 Chest X-Ray (Signed) Pavan Solomon - 08/13/19 Ankle X-Ray (Signed) Pavan Solomon - 08/13/19 Lumbar Spine MRI (Signed) Kvng Lara - 06/16/19 Echocardiogram Ultrasound (Signed) Shady Cadena - 01/19/[address] (Signed) Pavan Solomon - 12/28/18 Brain MRI (Signed) Pavan Solomon - 12/23/[address] (Signed) Thierry Enamorado - 12/23/18 Echocardiogram Ultrasound (Signed) Bucky Tracy - 12/23/18 Chest X-Ray (Signed) Jazzy Rogel - 12/10/18 Chest X-Ray (Signed) Joseline Hernández - 11/07/18 Chest X-Ray (Signed) Pavan Solomon - 10/31/18 Chest X-Ray (Signed) Walt Luna - 10/29/[address] (Signed) Walt Luna - 10/29/18 Brain MRI (Signed) Pavan Solomon - 09/21/18 Launch?[address] [address] [address] Scan Report Signed Patient: Fidel Erwin MR#: [id number] : 1965 Acct:[id number] Age/Sex: 58 / M Date of Service: 10/23/23 Loc: ED Accession Number: [id number] Procedure: CT angio chest abdomen pelvis Ordering Provider: Rody Fraire D.O. PROCEDURE: CT ANGIO CHEST ABDOMEN PELVIS INDICATIONS: syncope, abd pain TECHNIQUE: Precontrast 5 mm thick sections acquired from the lung apices to the iliac crests. After the administration of intravenous contrast, 2.5 mm thick sections again acquired from the lung apices to the iliac crests. Maximum intensity projection (MIP) oblique sagittal and coronal reformats were then acquired. For radiation dose reduction, the following was used: automated exposure control. COMPARISON: [facility], CT, CT ANGIO CHEST ABDOMEN PELVIS, 06/24/2020, 14:15. FINDINGS: Image quality: Diagnostic. AORTA and its attachments: Normal caliber thoracic and abdominal aorta. No dissection. Classic three-vessel arch anatomy. Great vessel origins are widely patent. SMA, celiac, REYNA, and bilateral renal arteries are patent. There is moderate plaque in the infrarenal abdominal aorta without flow-limiting stenosis. There is diffuse iliac plaque. There may potentially be a flow limiting left common iliac artery stenosis. Pulmonary arteries: No pulmonary emboli identified. Normal caliber. CHEST: Lower Neck: No enlarged lymph nodes. Thyroid: No thyroid nodules which require sonographic evaluation. Axillae: No enlarged lymph nodes. Chest Wall: Unremarkable. Lungs and Pleura: No pneumothorax or pleural effusions. No consolidation or suspicious nodules. Heart: Remote CABG and mitral annuloplasty. Severe coronary artery calcifications. Left ventricular and left atrial enlargement. Findings are similar to previous. Thoracic Vessels: Pulmonary arteries demonstrate normal size. Mediastinum and [place]: No enlarged lymph nodes. Esophagus: No wall thickening. No hiatal hernia. ABDOMEN: Liver: No solid mass. Gallbladder: No radiopaque gallstones or wall thickening. Biliary ducts: No biliary dilation. Pancreas: No ductal dilation. Spleen: Size is within normal limits. Adrenal Glands: No adrenal nodules. Kidneys and Ureters: No hydronephrosis. No solid mass. No complex renal cystic lesion which requires follow up. Stomach and Bowel: Normal colonic caliber, without significant wall thickening. Moderately large fecal load. Peritoneum: No abnormal intraperitoneal fluid. No free air. Ventral Wall: No hernia. Abdominal Nodes: No retroperitoneal or mesenteric adenopathy by size criteria. Vessels: Inferior vena cava is normal in size. PELVIS: Pelvic Organs: Unremarkable. Bladder: Unremarkable. Pelvic Nodes: No enlarged lymph nodes. Miscellaneous: No inguinal hernias are seen. Bones: Osteopenia. Old mild L1 and L3 compressions. IMPRESSION: 1. Normal caliber thoracic and abdominal aorta without dissection. 2. Cardiomegaly, left heart enlargement, severe coronary artery calcifications. 3. No acute process in the chest, abdomen, and pelvis. 4. Peripheral vascular disease. Findings include a potential flow-limiting stenosis in the proximal left common iliac artery. 5. Multiple chronic presumed osteoporotic compressions. Dictated by: Pavel Arauz M.D. on 10/23/2023 at 17:30 Approved by: Pavel Arauz M.D. on 10/23/2023 at 17:42 ECG Data Attestation: I personally reviewed and interpreted this ECG as follows: Prior ECG tracings: available for review Interpretation: Sinus rhythm rate of 64 NC 182 QRS of 118 QTC 412, no acute ST depression noted patient patient has a left axis deviation, patient has prior from 10/18/2022 with similar appearing EKG has Q-waves in 2 3 and AVF, T-waves appears similar in lateral leads accept for V6 has a little bit of an RSR that appears new. MDM Narrative Medical decision making narrative: Patient's heart rates been in the 60s, he has been hypotensive, somewhat fluid responsive but has reported EF 25% on prior echos so did start a dose of Levophed patient seemed to be very sensitive and increased his pressure to 150 at 0.1 mcg per minute when his stopped pressure drops back down to systolic of 90s but map is in the mid to upper 60s. Labs show white count of 7.7 hemoglobin 12.8 platelets of 172, INR 1, PTT of 33. Sodium 139 potassium 4.2 chloride 110 CO2 is 20, BUN 56 creatinine is 1.28, glucose is 106 LFTs are negative troponins less than 0.012 with a BNP of 254 and a procalcitonin of 0.044. Lactate 1.8. Patient's troponin was repeated negative. ETOH is less than 10. Chest x-ray shows no acute change CT angio obtained as patient complained of abdominal pain syncope and hypotension. This shows normal caliber thoracic and abdominal aorta without dissection, cardiomegaly, left heart enlargement including atrial and ventricle, severe coronary artery calcifications, no acute process chest abdomen pelvis no dissection or aneurysm noted. Peripheral vascular disease findings include a potentially flow-limiting stenosis in proximal left common iliac artery. Multiple chronic presumed osteoporotic compression fractures including L1 and L3. UDS positive for tricyclics, benzos and marijuana but patient has been positive for benzos and marijuana in the past. ETOH negative. Patient received 2 L total, blood pressure improved moderately, did not ever normalize to patient's normal levels. He notes he has not normally hypotensive. He feels better he is eating and drinking. 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 Patient does not wish to stay left Against Medical Advice but was encouraged to return as needed. Patient is able to ambulate unassisted and has been to the bathroom. Patient has been off Levophed for some time. Discharge Plan Departure Patient Disposition: Left Against Medical Advice Clinical Impression: Syncope, Hypotension, Creatinine elevation Activity Restrictions/Additional Instructions: Your workup today showed an enlarged hard and left heart enlargement, as well as severe coronary artery calcifications it is recommended that you be watched overnight in her blood pressure was quite low and is still low. It is also noted that your renal function is decreased, you may have been dehydrated but this should be rechecked. You can return at any time for re-evaluation. Please return if you have any recurrent episodes of passing out, new chest pain or shortness of breath, lightheadedness, persistent vomiting, new swelling of your extremities or other new or concerning changes. Prescriptions: No Action cyclobenzaprine 5 mg tablet 5 mg PO TID PRN (Reason: muscle spasm) Qty: 90 5RF aspirin [Adult Aspirin Regimen] 81 mg tablet,delayed release (DR/EC) 81 mg PO DAILY Qty: 90 3RF atorvastatin 80 mg tablet 80 mg PO BEDTIME Qty: 90 4RF Hold Instructions: Dimissed from Clinic 10/23/2022 gabapentin 600 mg tablet See Rx Instructions .ROUTE .COMPLEX Qty: 90 5RF Hold Instructions: Dimissed from Clinic 10/23/2022 Dose Instruction: TAKE 1 TABLET BY MOUTH THREE TIMES A DAY Rx Instructions: TAKE 1 TABLET BY MOUTH THREE TIMES A DAY hydroxyzine pamoate 25 mg capsule See Rx Instructions .ROUTE .COMPLEX PRN (Reason: Anxiety) Qty: 180 0RF Hold Instructions: Dimissed from Clinic 10/23/2022 Rx Instructions: TAKE ONE TO TWO CAPSULES BY MOUTH THREE TIMES DAILY NEEDED FOR FOR SEVERE ANXIETY metoprolol succinate 25 mg capsule,sprinkle,ER 24hr 25 mg PO DAILY Qty: 90 3RF Hold Instructions: Dimissed from Clinic 10/23/2022 bupropion HCl 150 mg tablet extended release 24 hr See Rx Instructions .ROUTE .COMPLEX Qty: 90 5RF Hold Instructions: Dimissed from Clinic 10/23/2022 Dose Instruction: TAKE 3 TABLETS BY MOUTH EVERY MORNING Rx Instructions: TAKE 1 TABLET BY MOUTH EVERY MORNING lisinopril 20 mg tablet 20 mg PO DAILY naproxen 500 mg tablet 500 mg PO BID PRN (Reason: pain) Qty: 60 3RF lidocaine 5 % adhesive patch,medicated 1 patch topical DAILY Qty: 30 3RF Rx Instructions: leave on most painful area for up to 12 hrs alprazolam 0.5 mg tablet 0.5 mg PO TID PRN (Reason: anxiety) Qty: 90 0RF albuterol sulfate 90 mcg/actuation HFA aerosol inhaler 2 inh inhalation Q4-6H PRN (Reason: shortness of breath or wheezing) Qty: 6.7 3RF Hold Instructions: Dimissed from Clinic 10/23/2022 Referrals: Luz Saravia MD [Primary Care Provider] - Stand Alone Forms: Patient Portal/API, Against Medical Advice
--- NOTE | 2023-10-23 14:12 | PC.NURSE ---
This RN immediately notified provider of decreased blood pressure. Placed remaining bag of saline that EMS started in pressure bag and placed patient in trandenberg.
[2023-10-23 14:15] LABS: Add Manual Diff / Slide Review NO; Basophils Absolute Auto 100 /uL (0-100); Basophils Percent Auto 0.7 % (0-2); Eosinophils Absolute Auto 300 /uL (0-450); Eosinophils Percent Auto 4.5 % (2-4); Hematocrit 36.3 % (41-53); Hemoglobin 12.8 g/dL (13.5-17.5); Lymphocytes Absolute Auto 2000 /uL (1100-4500); Lymphocytes Percent Auto 26.4 % (25-40); Mean Corpuscular HGB Conc 35.3 % (30-36); Mean Corpuscular Hemoglobin 33.5 PG (26-34); Mean Corpuscular Volume 94.9 fL (80-100); Monocytes Absolute Auto 300 /uL (0-900); Monocytes Percent Auto 3.7 % (3-14); Neutrophils Absolute Auto 5000 /uL (1500-7000); Neutrophils Percent Auto 64.7 % (50-75); Platelet Count 172 X10^3/uL (150-400); Red Blood Cell Count 3.83 X10^6/uL (4.5-5.9); Red Cell Distribution Width 12.5 % (11.6-14.8); White Blood Cell Count 7.7 X10^3/uL (4.5-11.0)
--- NOTE | 2023-10-23 14:20 | DI.CT.S_ITS ---
PROCEDURE: CT ANGIO CHEST ABDOMEN PELVIS INDICATIONS: syncope, abd pain TECHNIQUE: Precontrast 5 mm thick sections acquired from the lung apices to the iliac crests. After the administration of intravenous contrast, 2.5 mm thick sections again acquired from the lung apices to the iliac crests. Maximum intensity projection (MIP) oblique sagittal and coronal reformats were then acquired. For radiation dose reduction, the following was used: automated exposure control. COMPARISON: [facility], CT, CT ANGIO CHEST ABDOMEN PELVIS, 06/24/2020, 14:15. FINDINGS: Image quality: Diagnostic. AORTA and its attachments: Normal caliber thoracic and abdominal aorta. No dissection. Classic three-vessel arch anatomy. Great vessel origins are widely patent. SMA, celiac, REYNA, and bilateral renal arteries are patent. There is moderate plaque in the infrarenal abdominal aorta without flow-limiting stenosis. There is diffuse iliac plaque. There may potentially be a flow limiting left common iliac artery stenosis. Pulmonary arteries: No pulmonary emboli identified. Normal caliber. CHEST: Lower Neck: No enlarged lymph nodes. Thyroid: No thyroid nodules which require sonographic evaluation. Axillae: No enlarged lymph nodes. Chest Wall: Unremarkable. Lungs and Pleura: No pneumothorax or pleural effusions. No consolidation or suspicious nodules. Heart: Remote CABG and mitral annuloplasty. Severe coronary artery calcifications. Left ventricular and left atrial enlargement. Findings are similar to previous. Thoracic Vessels: Pulmonary arteries demonstrate normal size. Mediastinum and [place]: No enlarged lymph nodes. Esophagus: No wall thickening. No hiatal hernia. ABDOMEN: Liver: No solid mass. Gallbladder: No radiopaque gallstones or wall thickening. Biliary ducts: No biliary dilation. Pancreas: No ductal dilation. Spleen: Size is within normal limits. Adrenal Glands: No adrenal nodules. Kidneys and Ureters: No hydronephrosis. No solid mass. No complex renal cystic lesion which requires follow up. Stomach and Bowel: Normal colonic caliber, without significant wall thickening. Moderately large fecal load. Peritoneum: No abnormal intraperitoneal fluid. No free air. Ventral Wall: No hernia. Abdominal Nodes: No retroperitoneal or mesenteric adenopathy by size criteria. Vessels: Inferior vena cava is normal in size. PELVIS: Pelvic Organs: Unremarkable. Bladder: Unremarkable. Pelvic Nodes: No enlarged lymph nodes. Miscellaneous: No inguinal hernias are seen. Bones: Osteopenia. Old mild L1 and L3 compressions. IMPRESSION: 1. Normal caliber thoracic and abdominal aorta without dissection. 2. Cardiomegaly, left heart enlargement, severe coronary artery calcifications. 3. No acute process in the chest, abdomen, and pelvis. 4. Peripheral vascular disease. Findings include a potential flow-limiting stenosis in the proximal left common iliac artery. 5. Multiple chronic presumed osteoporotic compressions. Dictated by: Pavel Arauz M.D. on 10/23/2023 at 17:30 Approved by: Pavel Arauz M.D. on 10/23/2023 at 17:42
[2023-10-23 14:23] LABS: Prothrombin Time 11.4 SECONDS (9.4-12.5)
[2023-10-23 14:26] LABS: PTT Partial Thromboplastin Tim 33 SECONDS (25.1-36.5)
[2023-10-23 14:27] LABS: Alanine Aminotransferase 16 IU/L (<50); Albumin 4.3 g/dL (3.5-5.0); Albumin Globulin Ratio 1.6 (1.0-2.8); Alkaline Phosphatase 47 U/L (38-126); Aspartate Aminotransferase 17 IU/L (17-59); BUN Creatinine Ratio 43.8 (6-22); Bilirubin Total 0.6 mg/dL (0.2-1.3); Blood Urea Nitrogen 56 mg/dL (9-20); Calcium 8.6 mg/dL (8.4-10.2); Carbon Dioxide 20 mmol/L (22-32); Chloride 110 mmol/L (98-107); Creatine Kinase 107 U/L (55-170); Estimated Glomerular Filt Rate > 60 mL/min (>60); Globulin 2.7 g/dL (1.7-4.1); Glucose 106 mg/dL (80-110); HEMOLYSIS < 15 (0-50); Lipase 203 U/L (23-300); Potassium 4.2 mmol/L (3.4-5.1); Sodium 139 mmol/L (137-145)
[2023-10-23 14:39] LABS: NT-proBNP (BNP-Adult 18+) 254 pg/mL (<125); Troponin I < 0.012 ng/mL (0.01-0.034)
[2023-10-23] MEDS: NOREPINEPHRINE BITARTRATE/D5W 4 MG/250 ML PLAST..BAG 23.984 MG IV (14:40)
[2023-10-23 14:52] LABS: Ethanol (ETOH) < 10 mg/dL; Lactate (Lactic Acid) 1.8 mmol/L (0.7-2.1)
[2023-10-23 15:09] LABS: Procalcitonin 0.044 ng/mL (<0.5)
[2023-10-23] MEDS: NOREPINEPHRINE BITARTRATE/D5W 4 MG/250 ML PLAST..BAG 7.5 MG IV (15:33)
[2023-10-23] MEDS: fentaNYL 100 MCG/2 ML INJ 25 MCG IV (16:23)
[2023-10-23] MEDS: SODIUM CHLORIDE 0.9% 1,000 ML 125 ML IV (16:23)
[2023-10-23 16:34] LABS: Ur Creatinine Normal (Normal); Ur Specific Gravity Normal (Normal); Urine THC Positive (Negative); Urine pH Normal (Normal)
[2023-10-23 16:35] LABS: Urine Amphetamines Negative (Negative); Urine Barbiturates Negative (Negative); Urine Benzodiazepines Positive (Negative); Urine Cocaine Negative (Negative); Urine MDMA Negative (Negative); Urine Methadone Negative (Negative); Urine Methamphetamines Negative (Negative); Urine Opiates Negative (Negative); Urine Oxycodone Negative (Negative); Urine Phencyclidine Negative (Negative); Urine Tricyclic Antidepressant Positive (Negative)
[2023-10-23 17:30] LABS: Troponin I < 0.012 ng/mL (0.01-0.034)
--- NOTE | 2023-10-23 17:55 | PC.NURSE ---
Pt found to have ripped bilateral IV's out and blood on floor. Pt states he did this because he had to use the bathroom. Pt now requesting to leave AMA. Pt educated on reason for staying; pt states he still wishes to leave.
--- NOTE | 2023-10-23 18:02 | CM.SWNOTE ---
ED LATIN TEACHER Note Patient is 58 y/o male who presents to ED via EMS due to concern for syncopal episode today while eating at a restaurant. LATIN TEACHER receives consult from correctional substance abuse counselor due to patient's reported concern for food insecurity. Patient's PCP is Dr. Elias, Patient has [employer] Medicare Advantage, Medicaid & Medicare Insurance. Patient was a patient of Psychiatrist Dr. Delcid but patient was dismissed from the & Psychiatry clinic due to consecutive no shows. Patient has hx of TIA, CVA, Degenerative disc disease, Bipolar II Disorder and hx of syncopes. LATIN TEACHER enters room to meet with patient, patient presents as A/Ox4. Patient states I got dizzy and passed out. Patient states she resides with his mother in an apartment. Patietn states he has a lot on his plate and work to do around the house. Patient states that he ambulates independently and walks to get where he needs to go. Patient endorses he receives food stamps, about $175 per month and utilizes food josé. LATIN TEACHER provides patient with more food bank and food resources in the community. Patient was pending for admission due to concern for syncope, hypotension and creatinine elevation but patient chose leave ED AMA. JATIN Flores
== END 2023-10-23 17:58 | disposition left against medical advice (07) ==
PROVIDERS: Emergency Provider Emergency Medicine; PCP Student in an Organized Health Care Education/Training Program
DX: I95.9 Hypotension, unspecified (principal); Z79.899 Other long term (current) drug therapy; R55 Syncope and collapse; R07.9 Chest pain, unspecified; R79.89 Other specified abnormal findings of blood chemistry
CPT/HCPCS: 36415; 71045; 71275; 74174; 80053; 80305; 80320; 82550; 83605; 83690; 83735; 83880; 84145; 84484; 85025; 85610; 85730; 86850; 86900; 86901; 87040; 93005; 96361; 96365; 96375; 99284; J3010; Q9967

== ENCOUNTER 2023-11-13 13:57 | Emergency (ER) | payer OTHER, MEDICAID, SELFPAY ==
[2022-06-27 17:19] VITALS: BMI 29.0
[2023-11-13] VITALS (14 sets, daily range): BP systolic 72–105; BP diastolic 47–62; PULSE 45–55; RESP 0–22; TEMP 36.1; O2SAT 91–100; BMI 25.2
--- NOTE | 2023-11-13 14:09 | DI.RAD.S_ITS ---
PROCEDURE: XR CHEST 1V INDICATIONS: chest pain TECHNIQUE: One view of the chest was acquired. COMPARISON: [facility], CR, XR CHEST 1V, 10/23/2023, 14:10. FINDINGS: Surgical changes and devices: Sternal wires and valve replacement are unchanged. Lungs and pleura: Lungs are clear. No pleural effusions or pneumothorax. Mediastinum: Mediastinal contours appear normal. Heart size is mildly prominent. Bones and chest wall: No suspicious bony lesions. Overlying soft tissues appear unremarkable. IMPRESSION: No acute cardiopulmonary abnormality. Dictated by: Kathleen Zheng M.D. on 11/13/2023 at 15:14 Approved by: Kathleen Zheng M.D. on 11/13/2023 at 15:15
--- NOTE | 2023-11-13 14:19 | EKG_ITS ---
[facility] [address] [place] [address] Test Date: 2023-11-13 Pat Name: Fidel Erwin Department: [facility] Room: Gender: Male Automatic Clipper: ZAK : 1965 Requested By: Order Number: [id number] Reading MD: Cody Lopez Measurements Intervals [place] Rate: 50 P: 59 WI: 172 QRS: -45 QRSD: 122 T: 13 QT: 446 QTc: 406 Interpretive Statements Sinus bradycardia Left axis deviation Left ventricular hypertrophy with QRS widening ( R in aVL , Yaya product ) Possible Lateral infarct , age undetermined Inferior infarct , age undetermined Electronically Signed On 11-16-2023 8:43:29 PDT by Cody Lopez
[2023-11-13 14:58] LABS: Add Manual Diff / Slide Review NO; Basophils Absolute Auto 100 /uL (0-100); Eosinophils Absolute Auto 300 /uL (0-450); Eosinophils Percent Auto 6.6 % (2-4); Hematocrit 34.5 % (41-53); Hemoglobin 12.1 g/dL (13.5-17.5); Lymphocytes Absolute Auto 1700 /uL (1100-4500); Lymphocytes Percent Auto 32.1 % (25-40); Mean Corpuscular HGB Conc 35.1 % (30-36); Mean Corpuscular Hemoglobin 33.1 PG (26-34); Mean Corpuscular Volume 94.3 fL (80-100); Monocytes Absolute Auto 300 /uL (0-900); Monocytes Percent Auto 5.3 % (3-14); Neutrophils Absolute Auto 2900 /uL (1500-7000); Platelet Count 189 X10^3/uL (150-400); Red Blood Cell Count 3.66 X10^6/uL (4.5-5.9); Red Cell Distribution Width 12.2 % (11.6-14.8); White Blood Cell Count 5.3 X10^3/uL (4.5-11.0)
[2023-11-13 15:08] LABS: INR 1.1 (0.9-1.3); Prothrombin Time 12.1 SECONDS (9.4-12.5)
--- NOTE | 2023-11-13 15:10 | DI.RAD.S_ITS ---
PROCEDURE: XR HIP W PEL IF DONE RT 2V INDICATIONS: GLF, R HIP PAIN TECHNIQUE: AP pelvis with lateral view(s) of the right hip(s). COMPARISON: [facility], , XR HIP W PEL IF DONE RT 2V, 07/05/2021, 10:17. FINDINGS: Bones: No fractures or dislocations. Pelvic ring appears intact. No suspicious bony lesions. Soft tissues: The visualized bowel gas pattern is normal. No suspicious soft tissue calcifications. IMPRESSION: No visualized acute fracture or dislocation. However, if clinical concern and/or pain persist, short interval imaging followup in 7-10 days is recommended, as occult injury cannot be definitively excluded. Dictated by: Kathleen Zheng M.D. on 11/13/2023 at 15:58 Approved by: Kathleen Zheng M.D. on 11/13/2023 at 15:58
[2023-11-13 15:11] LABS: PTT Partial Thromboplastin Tim 33 SECONDS (25.1-36.5)
--- NOTE | 2023-11-13 15:16 | ED.DIZZY ---
HPI - Dizziness General Chief Complaint: Syncope Stated Complaint: collapsed at Cardiology Time Seen by Provider: 11/13/23 14:26 Source: patient Mode of arrival: Wheelchair History of Present Illness HPI Narrative: 58-year-old male with history of mitral valve stenosis status post repair, CAD status post CABG x4 in 2010, congestive heart failure, tobacco abuse, polysubstance abuse, previous CVA with residual left-sided weakness presents by private vehicle from his physical therapy aid's office for generalized weakness and collapse. Patient was at a routine cardiology office appointment when he had a fall to the carpet. Dr. Cadena of cardiology call to discuss patient with me prior to his arrival in the emergency department. States that patient overall does not take care of himself very well and was noted to have low heart rate and low blood pressure. He states that he thinks that the patient may need to cut back on his metoprolol. Patient reports pain in his right hip and requests pain medication upon my initial assessment. Patient asked about his medications and says that he does not think he takes metoprolol. He states that he has a ?box? of heart medications that he takes but can not tell me the name of any of them. Related Data Home Medications Medication Instructions Recorded Confirmed lisinopril 20 mg tablet 20 mg PO DAILY 10/06/23 11/17/23 Previous Rx's Medication Instructions Recorded albuterol sulfate 90 mcg/actuation 2 inh inhalation Q4-6H PRN 12/30/21 aerosol inhaler shortness of breath or wheezing #6.7 grams aspirin 81 mg tablet,delayed 81 mg PO DAILY #90 tabs 09/15/23 release (Adult Aspirin Regimen) atorvastatin 80 mg tablet 80 mg PO BEDTIME #90 tabs 09/15/23 bupropion HCl 150 mg 24 hr tablet, See Rx Instructions .Route 09/15/23 extended release .COMPLEX #90 tabs cyclobenzaprine 5 mg tablet 5 mg PO TID PRN muscle spasm #90 09/15/23 tabs gabapentin 600 mg tablet See Rx Instructions .Route 09/15/23 .COMPLEX #90 tabs metoprolol succinate 25 mg capsule 25 mg PO DAILY #90 ea 09/15/23 sprinkle, ext. release 24 hr naproxen 500 mg tablet 500 mg PO BID PRN pain #60 tabs 10/06/23 acetaminophen 500 mg tablet 1,000 mg (2 x 500 mg) PO Q6H PRN 11/14/23 (Tylenol Extra Strength) pain #20 tabs alprazolam 0.5 mg tablet 0.5 mg PO TID PRN anxiety #90 tabs 11/17/23 hydroxyzine pamoate 25 mg capsule See Rx Instructions .Route 11/17/23 .COMPLEX PRN Anxiety #180 caps lidocaine 5 % topical patch 1 patch topical DAILY #30 ea 11/19/23 Allergies Allergy/AdvReac Type Severity Reaction Status Date / Time No Known Drug Allergies Allergy Verified 11/17/23 08:16 Patient History Medical History Tobacco use Bronchitis Chronic bronchitis Hyperlipidemia 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) Coronary artery disease Discitis Anxiety Acute osteomyelitis of lumbar spine HTN (hypertension) Surgical History H/O valvuloplasty S/P CABG x 4 Family History Grandfather Heart attack Family/Other Heart attack Social History household members: family Smoking Status: Current every day smoker alcohol intake: former Smoking Status: Current every day smoker tobacco type: cigarettes alcohol intake frequency: other Substance Use Type: marijuana Exam Initial Vital Signs Initial Vital Signs: Vital Signs Temperature 97 F L 11/13/23 14:01 Pulse Rate 52 L 11/13/23 14:01 Respiratory Rate 16 11/13/23 14:01 Blood Pressure 90/52 L 11/13/23 14:01 Pulse Oximetry 97 11/13/23 14:01 Oxygen Delivery Method Room Air 11/13/23 14:01 Const: Awake, alert, debilitated, frail, disheveled Cardiac: Bradycardia, regular rhythm RESP: unlabored, clear bilaterally, no wheezing GI: Soft, nontender, nondistended MSK: Tenderness to palpation along right hip, full range of motion, no deformity Skin: Warm, Dry, intact, no rashes Neuro: AO x3, CN II-XII grossly intact, moves all extremities Course Orders Ordered: Discontinued Medications Hydrocodone Bitart/Acetaminophen (Hydrocodone/Acet 5/325 Tablet) 1 tab PO NOW ONE Stop: 11/13/23 15:11 Last Admin: 11/13/23 15:24 Dose: 1 tab Documented By: ARYA Aspirin (Aspirin 81 Mg Chew Tab) 324 mg PO NOW ONE Stop: 11/13/23 14:10 Last Admin: 11/13/23 15:21 Dose: Not Given Documented By: BRETT Sodium Chloride (Normal Saline 0.9%) 500 mls @ 1,000 mls/hr IV BOLUS ONE Stop: 11/13/23 16:11 Last Infusion: 11/13/23 17:03 Dose: Infused Documented By: Admin: 11/13/23 15:46 Dose: 1,000 mls/hr Documented By: ARYA Vital Signs Vital signs: Vital Signs - 8 hr 11/13/23 14:01 11/13/23 14:26 11/13/23 14:27 Temperature 97 F L Pulse Rate 52 L 55 L Respiratory Rate 16 Blood Pressure 90/52 L Pulse Oximetry 97 97 91 Oxygen Delivery Method Room Air 11/13/23 14:27 11/13/23 14:30 11/13/23 14:30 Temperature Pulse Rate 48 L Respiratory Rate 15 Blood Pressure 102/55 L 95/53 L Pulse Oximetry 96 Oxygen Delivery Method 11/13/23 15:00 11/13/23 15:00 11/13/23 15:26 Temperature Pulse Rate 47 L 51 L Respiratory Rate 0 L 22 Blood Pressure 101/52 L Pulse Oximetry 99 94 Oxygen Delivery Method 11/13/23 15:26 11/13/23 15:30 11/13/23 15:32 Temperature Pulse Rate 48 L 50 L Respiratory Rate 18 12 Blood Pressure 72/48 L 97/48 L Pulse Oximetry 98 Oxygen Delivery Method 11/13/23 15:40 11/13/23 15:40 11/13/23 15:45 Temperature Pulse Rate 46 L Respiratory Rate 17 Blood Pressure 86/49 L 100/51 L Pulse Oximetry 97 Oxygen Delivery Method 11/13/23 15:45 11/13/23 15:51 11/13/23 15:51 Temperature Pulse Rate 46 L 45 L Respiratory Rate 20 16 Blood Pressure 98/47 L Pulse Oximetry 98 99 Oxygen Delivery Method 11/13/23 15:55 11/13/23 15:55 11/13/23 16:00 Temperature Pulse Rate 47 L Respiratory Rate 20 Blood Pressure 105/52 L 99/50 L Pulse Oximetry 99 Oxygen Delivery Method 11/13/23 16:00 11/13/23 16:05 11/13/23 16:05 Temperature Pulse Rate 46 L 49 L Respiratory Rate 18 21 Blood Pressure 89/62 L Pulse Oximetry 100 98 Oxygen Delivery Method MDM - Dizziness Differential Diagnosis Differential diagnosis: Likely adverse reaction to drug, orthostatic hypotension and other (Dehydration) Lab Data 11/13/23 14:45 11/13/23 14:45 Labs: Lab Results 11/13/23 Range/Units 14:45 WBC 5.3 (4.5-11.0) X10^3/uL RBC 3.66 L (4.5-5.9) X10^6/uL Hgb 12.1 L (13.5-17.5) g/dL Hct 34.5 L (41-53) % MCV 94.3 (80-100) fL MCH 33.1 (26-34) PG MCHC 35.1 (30-36) % RDW 12.2 (11.6-14.8) % Plt Count 189 (150-400) X10^3/uL Neut % (Auto) 55.0 (50-75) % Lymph % (Auto) 32.1 (25-40) % [place] % (Auto) 5.3 (3-14) % Eos % (Auto) 6.6 H (2-4) % Baso % (Auto) 1.0 (0-2) % Neut # (Auto) 2900 (5595-3570) /uL Lymph # (Auto) 1700 (0614-1555) /uL [place] # (Auto) 300 (0-900) /uL Eos # (Auto) 300 (0-450) /uL Baso # (Auto) 100 (0-100) /uL PT 12.1 (9.4-12.5) SECONDS INR 1.1 (0.9-1.3) APTT 33 (25.1-36.5) SECONDS Sodium 138 (137-145) mmol/L Potassium 4.2 (3.4-5.1) mmol/L Chloride 107 (98-107) mmol/L Carbon Dioxide 27 (22-32) mmol/L BUN 27 H (9-20) mg/dL Creatinine 0.89 (0.66-1.25) mg/dL Estimated GFR > 60 (>60) mL/min BUN/Creatinine Ratio 30.3 H (6-22) Glucose 100 (80-110) mg/dL Calcium 8.7 (8.4-10.2) mg/dL Magnesium 2.3 (1.6-2.3) mg/dL Total Bilirubin 0.5 (0.2-1.3) mg/dL AST 18 (17-59) IU/L ALT 16 (<50) IU/L Alkaline Phosphatase 30 L (38-126) U/L Total Creatine Kinase 54 L (55-170) U/L Troponin I < 0.012 (0.01-0.034) ng/mL NT-Pro-B Natriuret Pep 273 H (<125) pg/mL Total Protein 6.4 (6.3-8.2) g/dL Albumin 4.0 (3.5-5.0) g/dL Globulin 2.4 (1.7-4.1) g/dL Albumin/Globulin Ratio 1.7 (1.0-2.8) Lipase 85 (23-300) U/L Imaging Data Chest x-ray: Radiologist's Impression: PROCEDURE: XR CHEST 1V INDICATIONS: chest pain TECHNIQUE: One view of the chest was acquired. COMPARISON: [facility], , XR CHEST 1V, 10/23/2023, 14:10. FINDINGS: Surgical changes and devices: Sternal wires and valve replacement are unchanged. Lungs and pleura: Lungs are clear. No pleural effusions or pneumothorax. Mediastinum: Mediastinal contours appear normal. Heart size is mildly prominent. Bones and chest wall: No suspicious bony lesions. Overlying soft tissues appear unremarkable. IMPRESSION: No acute cardiopulmonary abnormality. Dictated by: Kathleen Zheng M.D. on 11/13/2023 at 15:14 Approved by: Kathleen Zheng M.D. on 11/13/2023 at 15:15 Extremity x-ray #1: Radiologist's Impression: PROCEDURE: XR HIP W PEL IF DONE RT 2V INDICATIONS: GLF, R HIP PAIN TECHNIQUE: AP pelvis with lateral view(s) of the right hip(s). COMPARISON: [facility], , XR HIP W PEL IF DONE RT 2V, 07/05/2021, 10:17. FINDINGS: Bones: No fractures or dislocations. Pelvic ring appears intact. No suspicious bony lesions. Soft tissues: The visualized bowel gas pattern is normal. No suspicious soft tissue calcifications. IMPRESSION: No visualized acute fracture or dislocation. However, if clinical concern and/or pain persist, short interval imaging followup in 7-10 days is recommended, as occult injury cannot be definitively excluded. Dictated by: Kathleen Zheng M.D. on 11/13/2023 at 15:58 Approved by: Kathleen Zheng M.D. on 11/13/2023 at 15:58 ECG Data Interpretation: Sinus bradycardia at 50 beats per minute. Normal CA, no ST T wave changes, voltage criteria for left ventricular hypertrophy MDM Narrative Medical decision making narrative: Chronically unwell appearing patient presenting for possible syncopal episode versus collapse at doctor's office. Patient states his main complaint is right hip pain and repeatedly requests pain medications. Patient noted to have borderline blood pressures and bradycardia, however map is greater than 65. Patient was adamant that he did not hit his head during this episode. Laboratory work is reviewed, no significant abnormalities identified. Blood work is overall stable when compared to results from 10/23/2023, in fact his creatinine has improved. Blood pressures continued to be borderline, briefly dipping to map of low 60s, however after a small bolus of fluids blood pressures have improved. He continues to be bradycardic. Patient requested pain medications for his hit multiple times despite being able to ambulate on his hip and having negative hip x-rays. Patient requested to leave the hospital, stating that he did not want to be here anymore and wanted to go home. Patient was advised strongly to stop his metoprolol as this may be causing his low blood pressures and low heart rate. Strict ED return precautions discussed. Discharge Plan Departure Patient Disposition: Home Clinical Impression: Generalized weakness Instructions: DI for Muscle Weakness Activity Restrictions/Additional Instructions: Pay attention to the heart medication you are taking. Do not take your metoprolol. Follow up with Dr. Cadena. Prescriptions: No Action alprazolam 0.5 mg tablet 0.5 mg PO TID PRN (Reason: anxiety) Qty: 90 0RF hydroxyzine pamoate 25 mg capsule See Rx Instructions .ROUTE .COMPLEX PRN (Reason: Anxiety) Qty: 180 0RF Hold Instructions: Dimissed from Clinic 10/23/2022 Rx Instructions: TAKE ONE TO TWO CAPSULES BY MOUTH THREE TIMES DAILY NEEDED FOR FOR SEVERE ANXIETY cyclobenzaprine 5 mg tablet 5 mg PO TID PRN (Reason: muscle spasm) Qty: 90 5RF aspirin [Adult Aspirin Regimen] 81 mg tablet,delayed release (DR/EC) 81 mg PO DAILY Qty: 90 3RF atorvastatin 80 mg tablet 80 mg PO BEDTIME Qty: 90 4RF Hold Instructions: Dimissed from Clinic 10/23/2022 gabapentin 600 mg tablet See Rx Instructions .ROUTE .COMPLEX Qty: 90 5RF Hold Instructions: Dimissed from Clinic 10/23/2022 Dose Instruction: TAKE 1 TABLET BY MOUTH THREE TIMES A DAY Rx Instructions: TAKE 1 TABLET BY MOUTH THREE TIMES A DAY metoprolol succinate 25 mg capsule,sprinkle,ER 24hr 25 mg PO DAILY Qty: 90 3RF Hold Instructions: Dimissed from Clinic 10/23/2022 bupropion HCl 150 mg tablet extended release 24 hr See Rx Instructions .ROUTE .COMPLEX Qty: 90 5RF Hold Instructions: Dimissed from Clinic 10/23/2022 Dose Instruction: TAKE 3 TABLETS BY MOUTH EVERY MORNING Rx Instructions: TAKE 1 TABLET BY MOUTH EVERY MORNING lisinopril 20 mg tablet 20 mg PO DAILY naproxen 500 mg tablet 500 mg PO BID PRN (Reason: pain) Qty: 60 3RF lidocaine 5 % adhesive patch,medicated 1 patch topical DAILY Qty: 30 3RF Rx Instructions: leave on most painful area for up to 12 hrs albuterol sulfate 90 mcg/actuation HFA aerosol inhaler 2 inh inhalation Q4-6H PRN (Reason: shortness of breath or wheezing) Qty: 6.7 3RF Hold Instructions: Dimissed from Clinic 10/23/2022 acetaminophen [Tylenol Extra Strength] 500 mg tablet 1,000 mg PO Q6H PRN (Reason: pain) Qty: 20 0RF Referrals: Luz Saravia MD [Primary Care Provider] - Stand Alone Forms: Patient Portal/API
[2023-11-13 15:17] LABS: Alanine Aminotransferase 16 IU/L (<50); Albumin Globulin Ratio 1.7 (1.0-2.8); Alkaline Phosphatase 30 U/L (38-126); Aspartate Aminotransferase 18 IU/L (17-59); BUN Creatinine Ratio 30.3 (6-22); Bilirubin Total 0.5 mg/dL (0.2-1.3); Blood Urea Nitrogen 27 mg/dL (9-20); Calcium 8.7 mg/dL (8.4-10.2); Carbon Dioxide 27 mmol/L (22-32); Chloride 107 mmol/L (98-107); Creatine Kinase 54 U/L (55-170); Estimated Glomerular Filt Rate > 60 mL/min (>60); Globulin 2.4 g/dL (1.7-4.1); Glucose 100 mg/dL (80-110); HEMOLYSIS 45 (0-50); Lipase 85 U/L (23-300); Magnesium 2.3 mg/dL (1.6-2.3); Potassium 4.2 mmol/L (3.4-5.1); Sodium 138 mmol/L (137-145); Total Protein 6.4 g/dL (6.3-8.2)
[2023-11-13] MEDS: HYDROCODONE/ACET 5/325 TABLET 1 TAB PO (15:24)
[2023-11-13 15:29] LABS: NT-proBNP (BNP-Adult 18+) 273 pg/mL (<125); Troponin I < 0.012 ng/mL (0.01-0.034)
[2023-11-13] MEDS: SODIUM CHLORIDE 0.9% 500 ML 1000 ML IV (15:46)
--- NOTE | 2023-11-13 15:47 | PC.NURSE ---
Patient is resting and has his eyes closed and is slow to rouse and respond. When he wakes up he states he is in pain and requests to have some pain meds to take home with him. He was informed that the choice for medication is up to the doctor and that I couldn't tell him what he will be prescribed to take home is anything. His blood pressure is low. provider aware. IV fluids ordered. will continue to monitor.
== END 2023-11-13 17:13 | disposition home or self-care (01) ==
PROVIDERS: Emergency Provider Emergency Medicine; PCP Student in an Organized Health Care Education/Training Program
DX: R53.1 Weakness (principal); R00.1 Bradycardia, unspecified; R07.9 Chest pain, unspecified
CPT/HCPCS: 36415; 71045; 73502; 80053; 82550; 83690; 83735; 83880; 84484; 85025; 85610; 85730; 93005; 96360; 99284

== ENCOUNTER 2023-11-14 10:25 | Emergency (ER) | payer OTHER, MEDICAID, SELFPAY ==
[2022-06-27 17:19] VITALS: BMI 29.0
[2023-11-14] VITALS (21 sets, daily range): BP systolic 87–149; BP diastolic 50–74; PULSE 47–68; RESP 12–18; TEMP 36.4; O2SAT 96–100; BMI 23.1
--- NOTE | 2023-11-14 10:33 | ED_ITS ---
HPI - General Adult General Chief complaint: Weakness Stated complaint: found down/hypotensive/L side deficit Time Seen by Provider: 11/14/23 10:32 Source: patient, RN notes reviewed and old records reviewed Mode of arrival: EMS Limitations: no limitations History of Present Illness HPI narrative: 58-year-old male history of hypertension, dyslipidemia, prior stroke with left- sided weakness, bipolar disorder, coronary artery disease status post CABG x4 in 2011, tobacco use and polysubstance abuse presents after being by a postal human services program specialist who found him on the sidewalk with a bag of groceries. Patient states that he was on his way to get groceries. Glucose in the field was 89. He had a systolic blood pressure of 70s in the field along with a heart rate in the 40s has improved to the 80 range has had about 200 mL of fluid. Patient was seen here yesterday for generalized weakness. Was recommended to decrease his metoprolol. Patient states he is taking his medication regularly but does not give much more detail. He states he has a mild headache. Denies any chest pain, no shortness of breath, no nausea or vomiting. States he does feel little dizzy. Just nice syncope. Denies any GI or urinary symptoms. Denies any new swelling of his extremities. Does have weakness of his left side has a history of prior stroke but notes it is more pronounced. Patient gives very brief answers but does answer all questions. Patient does use tobacco daily. Dr. Anderson is his primary care physician. Related Data Home Medications Medication Instructions Recorded Confirmed lisinopril 20 mg tablet 20 mg PO DAILY 10/06/23 10/06/23 Previous Rx's Medication Instructions Recorded albuterol sulfate 90 mcg/actuation 2 inh inhalation Q4-6H PRN 12/30/21 aerosol inhaler shortness of breath or wheezing #6.7 grams aspirin 81 mg tablet,delayed 81 mg PO DAILY #90 tabs 09/15/23 release (Adult Aspirin Regimen) atorvastatin 80 mg tablet 80 mg PO BEDTIME #90 tabs 09/15/23 bupropion HCl 150 mg 24 hr tablet, See Rx Instructions .Route 09/15/23 extended release .COMPLEX #90 tabs cyclobenzaprine 5 mg tablet 5 mg PO TID PRN muscle spasm #90 09/15/23 tabs gabapentin 600 mg tablet See Rx Instructions .Route 09/15/23 .COMPLEX #90 tabs hydroxyzine pamoate 25 mg capsule See Rx Instructions .Route 09/15/23 .COMPLEX PRN Anxiety #180 caps metoprolol succinate 25 mg capsule 25 mg PO DAILY #90 ea 09/15/23 sprinkle, ext. release 24 hr alprazolam 0.5 mg tablet 0.5 mg PO TID PRN anxiety #90 tabs 10/06/23 lidocaine 5 % topical patch 1 patch topical DAILY #30 ea 10/06/23 naproxen 500 mg tablet 500 mg PO BID PRN pain #60 tabs 10/06/23 acetaminophen 500 mg tablet 1,000 mg (2 x 500 mg) PO Q6H PRN 11/14/23 (Tylenol Extra Strength) pain #20 tabs Allergies Allergy/AdvReac Type Severity Reaction Status Date / Time No Known Drug Allergies Allergy Verified 10/06/23 14:23 Review of Systems Review of Systems ROS Unobtainable: All systems reviewed & are unremarkable except as noted in HPI and below Patient History Medical History Tobacco use Bronchitis Chronic bronchitis Hyperlipidemia 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 HEENT: Atraumatic, pupils are equal round reactive to light, extraocular movements are intact, nares are clear, there is no conjunctival pallor. Throat is clear without any exudates, erythema, tonsillar enlargement or uvular deviation, right facial droop. HEART: Bradycardic but regular rate and rhythm without murmur, clicks, rubs. LUNGS:Lungs clear to auscultation, no wheezes, rales, crackles, chest moves symmetrically ABD:bowel sounds normal, soft, non-tender, no guarding, rebound, rigidity, no masses noted, no hepatosplenomegaly :No CVA tenderness MSCL: Non-tender, patient does have some drift weakness of the left compared to the right upper and lower extremity. NEURO:CN 2-12 intact, sensation normal, left finger nose finger and left heel- colon are altered. SKIN: No rash, erythema or other skin changes Initial Vital Signs Initial Vital Signs: Vital Signs Pulse Rate 50 L 11/14/23 10:40 Respiratory Rate 16 11/14/23 10:40 Scores GCS [place] coma scale eye opening: Spontaneous Donnell coma scale verbal response: Orientated Donnell coma scale motor response: Obey commands [place] coma scale total score: 15 Course Orders Ordered: ED Orders 11/14/23 10:30 BNP [NT-proBNP (BNP-Adult 18+)] Stat Complete Blood Count AUTO DIFF Stat Comprehensive Metabolic Panel Stat Magnesium Stat PTT Partial Thromboplastin Fco Stat Prothrombin Time INR Stat Troponin & CK Cardiac Panel Stat 11/14/23 10:34 CT Stroke Stat XR chest 1V Stat EKG-12 Lead Stat 11/14/23 10:43 CT angio head and neck Stat 11/14/23 10:49 Consult to [employer]ING RUNNING MACHINE TENDER - Hand Edge Bander Stat 11/14/23 11:21 Urine Drug Screen, Rapid Stat 11/14/23 12:25 Trop I [Troponin I] Stat Discontinued Medications Acetaminophen (Acetaminophen 325 Mg Tablet) 975 mg PO NOW ONE Stop: 11/14/23 12:48 Last Admin: 11/14/23 12:58 Dose: 975 mg Documented By: Sodium Chloride (Normal Saline 0.9%) 500 mls @ 1,000 mls/hr IV BOLUS ONE Stop: 11/14/23 11:13 Last Infusion: 11/14/23 11:23 Dose: Infused Documented By: Admin: 11/14/23 11:00 Dose: 1,000 mls/hr Documented By: Sodium Chloride (Normal Saline 0.9%) 500 mls @ 1,000 mls/hr IV BOLUS ONE Stop: 11/14/23 12:07 Last Infusion: 11/14/23 12:09 Dose: Infused Documented By: Admin: 11/14/23 11:40 Dose: 1,000 mls/hr Documented By: Ondansetron HCl (Ondansetron 4 Mg/2 Ml Inj) 4 mg IV NOW PRN PRN Reason: Nausea And Vomiting Ondansetron HCl (Ondansetron 4 Mg Odt) 4 mg SL NOW PRN PRN Reason: Nausea And Vomiting Vital Signs Vital signs: Vital Signs - 8 hr 11/14/23 10:40 11/14/23 10:42 11/14/23 10:42 Temperature Pulse Rate 50 L 49 L Respiratory Rate 16 16 Blood Pressure 89/52 L Pulse Oximetry Oxygen Delivery Method 11/14/23 10:45 11/14/23 10:45 11/14/23 10:45 Temperature 97.6 F Pulse Rate 50 L 48 L Respiratory Rate 18 17 Blood Pressure 87/52 L 87/52 L Pulse Oximetry 96 99 Oxygen Delivery Method Room Air 11/14/23 10:50 11/14/23 10:50 11/14/23 10:55 Temperature Pulse Rate 47 L 48 L Respiratory Rate 14 13 Blood Pressure 88/52 L Pulse Oximetry 99 97 Oxygen Delivery Method 11/14/23 10:55 11/14/23 11:00 11/14/23 11:00 Temperature Pulse Rate 48 L Respiratory Rate 13 Blood Pressure 95/50 L 107/55 L Pulse Oximetry 99 Oxygen Delivery Method 11/14/23 11:06 11/14/23 11:06 11/14/23 11:10 Temperature Pulse Rate 56 L 59 L Respiratory Rate Blood Pressure 131/64 Pulse Oximetry 99 100 Oxygen Delivery Method 11/14/23 11:10 11/14/23 11:18 11/14/23 11:18 Temperature Pulse Rate 58 L Respiratory Rate 14 Blood Pressure 139/72 133/59 L Pulse Oximetry 99 Oxygen Delivery Method 11/14/23 11:20 11/14/23 11:20 11/14/23 11:25 Temperature Pulse Rate 56 L 52 L Respiratory Rate 12 Blood Pressure 120/58 L Pulse Oximetry 100 100 Oxygen Delivery Method 11/14/23 11:25 11/14/23 11:30 11/14/23 11:30 Temperature Pulse Rate 53 L Respiratory Rate 12 Blood Pressure 119/60 120/61 Pulse Oximetry 100 Oxygen Delivery Method 11/14/23 11:47 11/14/23 11:47 11/14/23 12:00 Temperature Pulse Rate 58 L 61 Respiratory Rate 18 Blood Pressure 149/74 H Pulse Oximetry 98 98 Oxygen Delivery Method 11/14/23 12:01 11/14/23 12:01 11/14/23 12:30 Temperature Pulse Rate 60 64 Respiratory Rate 16 Blood Pressure 133/59 L Pulse Oximetry 98 98 Oxygen Delivery Method 11/14/23 12:37 11/14/23 12:37 11/14/23 12:45 Temperature Pulse Rate 61 55 L Respiratory Rate 17 Blood Pressure 134/60 Pulse Oximetry 100 Oxygen Delivery Method 11/14/23 12:45 11/14/23 13:00 11/14/23 13:00 Temperature Pulse Rate 68 Respiratory Rate 15 Blood Pressure 134/63 131/61 Pulse Oximetry 100 Oxygen Delivery Method 11/14/23 13:15 11/14/23 13:15 11/14/23 13:30 Temperature Pulse Rate 60 57 L Respiratory Rate 13 Blood Pressure 123/59 L Pulse Oximetry 100 100 Oxygen Delivery Method 11/14/23 13:30 Temperature Pulse Rate Respiratory Rate Blood Pressure 120/60 Pulse Oximetry Oxygen Delivery Method Medical Decision Making Lab Data 11/14/23 10:30 11/14/23 10:30 Labs: Lab Results 11/14/23 11/14/23 11/14/23 Range/Units 10:30 11:21 12:25 WBC 7.2 (4.5-11.0) X10^3/uL RBC 3.67 L (4.5-5.9) X10^6/uL Hgb 12.2 L (13.5-17.5) g/dL Hct 34.8 L (41-53) % MCV 94.8 (80-100) fL MCH 33.2 (26-34) PG MCHC 35.1 (30-36) % RDW 12.2 (11.6-14.8) % Plt Count 177 (150-400) X10^3/uL Neut % (Auto) 68.6 (50-75) % Lymph % (Auto) 21.9 L (25-40) % [place] % (Auto) 4.6 (3-14) % Eos % (Auto) 4.3 H (2-4) % Baso % (Auto) 0.6 (0-2) % Neut # (Auto) 5000 (4092-1503) /uL Lymph # (Auto) 1600 (5674-5227) /uL [place] # (Auto) 300 (0-900) /uL Eos # (Auto) 300 (0-450) /uL Baso # (Auto) 0 (0-100) /uL PT 11.8 (9.4-12.5) SECONDS INR 1.0 (0.9-1.3) APTT 33 (25.1-36.5) SECONDS Sodium 139 (137-145) mmol/L Potassium 4.4 (3.4-5.1) mmol/L Chloride 110 H (98-107) mmol/L Carbon Dioxide 25 (22-32) mmol/L BUN 22 H (9-20) mg/dL Creatinine 0.84 (0.66-1.25) mg/dL Estimated GFR > 60 (>60) mL/min BUN/Creatinine Ratio 26.2 H (6-22) Glucose 86 (80-110) mg/dL Calcium 8.8 (8.4-10.2) mg/dL Magnesium 2.2 (1.6-2.3) mg/dL Total Bilirubin 0.4 (0.2-1.3) mg/dL AST 19 (17-59) IU/L ALT 16 (<50) IU/L Alkaline Phosphatase 40 (38-126) U/L Total Creatine Kinase 51 L (55-170) U/L Troponin I < 0.012 < 0.012 (0.01-0.034) ng/mL NT-Pro-B Natriuret Pep 242 H (<125) pg/mL Total Protein 6.2 L (6.3-8.2) g/dL Albumin 3.9 (3.5-5.0) g/dL Globulin 2.3 (1.7-4.1) g/dL Albumin/Globulin Ratio 1.7 (1.0-2.8) U Opiates 300ng/mL cut Negative (Negative) Ur Oxycodone Screen Negative (Negative) Urine Methadone Screen Negative (Negative) Ur Barbiturates Screen Negative (Negative) U Tricyclic Antidepress Positive H (Negative) Ur Phencyclidine Scrn Negative (Negative) Ur Amphetamines Screen Negative (Negative) U Methamphetamines Scrn Negative (Negative) Ur MDMA Scrn (Ecstasy) Negative (Negative) U Benzodiazepines Scrn Positive H (Negative) Urine Cocaine Screen Negative (Negative) U Marijuana (THC) Screen Positive H (Negative) Urine pH Normal (Normal) Urine Specific [place] Normal (Normal) Ur Creatinine Normal (Normal) Point of Care Testing Glucose POC 82 Urine Dip Bedside Urine Glucose Negative Bedside Urine Bilirubin - Negative Bedside Urine Ketone - Negative Urine Specific [place] 1.010 Bedside Urine Occult Blood - Negative Bedside Urine pH 6.5 Bedside Urine Protein - Negative Bedside Urine Urobilinogen - Negative Bedside Urine Nitrite - Negative Bedside Urine Leukocytes - Negative Esterase Point of care testing: Point of Care Testing Glucose POC 82 Urine Dip Bedside Urine Glucose Negative Bedside Urine Bilirubin - Negative Bedside Urine Ketone - Negative Urine Specific [place] 1.010 Bedside Urine Occult Blood - Negative Bedside Urine pH 6.5 Bedside Urine Protein - Negative Bedside Urine Urobilinogen - Negative Bedside Urine Nitrite - Negative Bedside Urine Leukocytes - Negative Esterase ECG Data Attestation: I personally reviewed and interpreted this ECG as follows: Prior ECG tracings: available for review Interpretation: Sinus bradycardia rate of 50 VT 176 QRS of 128 QTC 413, left axis deviation, no acute ST changes in comparison to 10/23/2023. Patient has similar appearing EKG from 10/23/2023 with exception of V1 although there appears to be little bit of motion artifact in the asleep. EKG 2. Shows sinus bradycardia with a rate of 56 VT 194 QRS of 136 QTC of 4 1, no acute new ST elevation changes. For similar to earlier today. [facility] Narrative Medical decision making narrative: 58-year-old male with history of cardiomyopathy with an EF in the 25% range as of September 2022, patient also has prior stroke with left-sided deficits. Patient was found outside has been walking back from the grocery store had more pronounced left-sided weakness glucose was 89 in the field patient was found to be hypotensive and bradycardic. Was seen here yesterday and recommended to stop or decrease his metoprolol dose. Non-con head CT read was called to myself by Radiology. Old stroke but no acute changes are appreciated. Suspect patient maybe having exacerbation prior symptoms secondary to his hypotension. CT head and neck angio is unchanged from priors bilateral cervical ICA occlusion with reconstitution distal intracranial ICA high-grade stenosis of the origin of the right vertebral artery. Labs count of 7.2 hemoglobin of 12.2 consistent with priors from earlier in October, platelets of 177. INR is 1, sodium is 139 potassium 4.4 chloride 110 CO2 is 25 BUN 22 creatinine 0.84 glucose 86, LFTs are negative, total CK is 51 with a troponin less than 0.012 and a BNP of 242. Repeat troponin is negative with no acute EKG changes. EKG shows sinus bradycardia, change in lead 1 but no other acute changes from prior. Patient received fluids, pressure appears to be improving. Patient's blood pressure improved quite a bit to 120 systolic after 500 bolus did receive a whole L bolus. Pulse also improved from the 40s to 50s. Discussed with patient he was seen here prior day states he has been taking his lisinopril states he did not take his metoprolol today and that he has on a blood thinner but does not recall the name. He does not appear significantly improved although still does have some weakness of his left side. Patient is eating and drinking without issue. Patient ambulated without issue in department. Did request something for back pain he finds it very uncomfortable sitting in the bed. He was given a dose of Tylenol. Discussed observation with patient vitals have all proved and are appropriate he is ambulating in the department and states his movement is back at baseline. I suspect he had ischemia secondary to hypotension and hypotension maybe secondary to his bradycardia. Discussed with patient I would recommend keeping him. Patient does not wish to stay overnight for observation. Discussed I feel he is high-risk for bad outcome or . He in ask for prescription for his back, discussed we can try something nonnarcoticbut I don't wish to give him any altering substances. Patient had similar symptoms on his last visit with myself and had CT angio to rule out dissection at that time which was negative. So I did not reorder this today. He has ambulated here in the department he says he has improved. Discussed that he maybe getting hypotension secondary to his metoprolol I would recommend he continue to hold this. Did ask if he would not least meet with our [employer]NING MACHINE TENDER as he does not wish for observation overnight. He is not willing to meet with her at this time. Discharge Plan Departure Patient Disposition: Home Clinical Impression: Hypotension, Bradycardia Activity Restrictions/Additional Instructions: It was recommended that you stay overnight for observation, you had an episode of hypotension where your blood pressure was very low I suspect this cause some of your symptoms today. Please continue to hold your metoprolol, please follow up with your primary care physician for recheck. You can take Tylenol up to a 1000 mg every 6 hours as needed for pain. A prescription was sent to [facility]. Please return for new or worsening symptoms, changes in mental status, new weakness, new chest pain or shortness of breath, abdominal back or flank pain, passing out, persistent vomiting, new swelling in your extremities or other new or concerning changes. Prescriptions: New acetaminophen [Tylenol Extra Strength] 500 mg tablet 1,000 mg PO Q6H PRN (Reason: pain) Qty: 20 0RF No Action cyclobenzaprine 5 mg tablet 5 mg PO TID PRN (Reason: muscle spasm) Qty: 90 5RF aspirin [Adult Aspirin Regimen] 81 mg tablet,delayed release (DR/EC) 81 mg PO DAILY Qty: 90 3RF atorvastatin 80 mg tablet 80 mg PO BEDTIME Qty: 90 4RF Hold Instructions: Dimissed from Clinic 10/23/2022 gabapentin 600 mg tablet See Rx Instructions .ROUTE .COMPLEX Qty: 90 5RF Hold Instructions: Dimissed from Clinic 10/23/2022 Dose Instruction: TAKE 1 TABLET BY MOUTH THREE TIMES A DAY Rx Instructions: TAKE 1 TABLET BY MOUTH THREE TIMES A DAY hydroxyzine pamoate 25 mg capsule See Rx Instructions .ROUTE .COMPLEX PRN (Reason: Anxiety) Qty: 180 0RF Hold Instructions: Dimissed from Clinic 10/23/2022 Rx Instructions: TAKE ONE TO TWO CAPSULES BY MOUTH THREE TIMES DAILY NEEDED FOR FOR SEVERE ANXIETY metoprolol succinate 25 mg capsule,sprinkle,ER 24hr 25 mg PO DAILY Qty: 90 3RF Hold Instructions: Dimissed from Clinic 10/23/2022 bupropion HCl 150 mg tablet extended release 24 hr See Rx Instructions .ROUTE .COMPLEX Qty: 90 5RF Hold Instructions: Dimissed from Clinic 10/23/2022 Dose Instruction: TAKE 3 TABLETS BY MOUTH EVERY MORNING Rx Instructions: TAKE 1 TABLET BY MOUTH EVERY MORNING lisinopril 20 mg tablet 20 mg PO DAILY naproxen 500 mg tablet 500 mg PO BID PRN (Reason: pain) Qty: 60 3RF lidocaine 5 % adhesive patch,medicated 1 patch topical DAILY Qty: 30 3RF Rx Instructions: leave on most painful area for up to 12 hrs alprazolam 0.5 mg tablet 0.5 mg PO TID PRN (Reason: anxiety) Qty: 90 0RF albuterol sulfate 90 mcg/actuation HFA aerosol inhaler 2 inh inhalation Q4-6H PRN (Reason: shortness of breath or wheezing) Qty: 6.7 3RF Hold Instructions: Dimissed from Clinic 10/23/2022 Referrals: Luz Saravia MD [Primary Care Provider] - Stand Alone Forms: Patient Portal/API
--- NOTE | 2023-11-14 10:34 | DI.CT.S_ITS ---
PROCEDURE: CT STROKE INDICATIONS: Positive BE-FAST, Stroke symptoms TECHNIQUE: Noncontrast 4.5 mm thick angled axial sections acquired from the foramen magnum to the vertex, with coronal reformats. For radiation dose reduction, the following was used: automated exposure control, adjustment of mA and/or kV according to patient size. COMPARISON: [facility], CT, CT STROKE, 06/27/2022, 10:36. FINDINGS: Image quality: Diagnostic. CSF spaces: Basal cisterns are patent. No extra-axial fluid collections. Ventricles are normal in size and shape. Brain: No midline shift. No intracranial masses or hemorrhage. Large right MCA old infarct. Skull and face: Calvarium and visualized facial bones are intact, without suspicious lesions. Sinuses: Visualized sinuses and mastoids are clear. IMPRESSION: Large right old MCA infarct associated with encephalomalacia and gliosis. No acute hemorrhage or mass effect. This study fulfills neurological imaging criteria for inclusion or exclusion of acute stroke therapies based on available published neurological imaging guidelines. Note: Critical results were discussed with Dr. Fraire at 09:50 AM [place] time on 11/14/23 Approved by: Ariel Graff M.D. on 11/14/2023 at 9:57
--- NOTE | 2023-11-14 10:34 | DI.RAD.S_ITS ---
PROCEDURE: XR CHEST 1V INDICATIONS: Possible stroke TECHNIQUE: One view of the chest was acquired. COMPARISON: [facility], CR, XR CHEST 1V, 11/13/2023, 14:25. FINDINGS: Surgical changes and devices: Midline sternal wires and valve prosthesis Lungs and pleura: Left upper lobe scarring similar prior exam. Right lung and pleural spaces are clear Mediastinum: Mediastinal contours appear normal. Heart size is normal. Bones and chest wall: No suspicious bony lesions. Overlying soft tissues appear unremarkable. IMPRESSION: No acute cardiopulmonary abnormality is seen. Approved by: Ariel Graff M.D. on 11/14/2023 at 10:31
--- NOTE | 2023-11-14 10:41 | EKG_ITS ---
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
--- NOTE | 2023-11-14 10:43 | DI.CT.S_ITS ---
PROCEDURE: CT ANGIO HEAD AND NECK INDICATIONS: L side def. TECHNIQUE: After the administration of intravenous contrast, 1 mm thick sections acquired from the aortic arch through the [employer] [place]. 3-dimensional clodpne-lariljaog-fngagpkoch (MIP) and/or volume rendering reformats were acquired of the central intracranial vasculature and neck separately. For radiation dose reduction, the following was used: automated exposure control, adjustment of mA and/or kV according to patient size. COMPARISON: [facility], CT, CT ANGIO HEAD AND NECK, 06/27/2022, 10:41. FINDINGS: Cerebral CT Angiogram: Internal carotid arteries: Petrous bilateral ICA occlusion. The supra cavernous segments of both ICA reconstitution through collaterals, probably ophthalmic artery. Anterior cerebral arteries: Unremarkable. No significant stenosis. No occlusion. No aneurysm. Middle cerebral arteries: Diminutive right MCA. Left MCA is patent. No new large vessel occlusion. Posterior cerebral arteries: Unremarkable. No significant stenosis. No occlusion. No aneurysm. Basilar artery: Unremarkable. No significant stenosis. No occlusion. No aneurysm. Vertebral arteries: Unremarkable as visualized. Dural venous sinuses: Unremarkable given phase of enhancement. Other: Arterial phase brain parenchyma is unremarkable. Neck CT Angiogram: Internal carotid arteries: Bilateral proximal ICA occlusion Common carotid arteries: Unremarkable. No significant stenosis. No dissection or occlusion. External carotid arteries: Unremarkable. No occlusion. Vertebral arteries: High-grade atherosclerotic stenosis at the origin the bright vertebral artery without occlusion. Left vertebral artery unremarkable. Other: None. Aortic Arch and Mediastinum: Partially visualized aortic arch unremarkable without evidence of aneurysm. Origins of the great vessels unremarkable. IMPRESSION: No change from the prior exam. Bilateral cervical ICA occlusion with reconstitution distal intracranial ICA. High-grade stenosis at the origin the right vertebral artery. Any quantitative measurements of stenosis were performed using NASCET criteria. Approved by: Ariel Graff M.D. on 11/14/2023 at 11:00
[2023-11-14 10:48] LABS: Add Manual Diff / Slide Review NO; Basophils Absolute Auto 0 /uL (0-100); Basophils Percent Auto 0.6 % (0-2); Eosinophils Absolute Auto 300 /uL (0-450); Eosinophils Percent Auto 4.3 % (2-4); Hematocrit 34.8 % (41-53); Hemoglobin 12.2 g/dL (13.5-17.5); Lymphocytes Absolute Auto 1600 /uL (1100-4500); Lymphocytes Percent Auto 21.9 % (25-40); Mean Corpuscular HGB Conc 35.1 % (30-36); Mean Corpuscular Hemoglobin 33.2 PG (26-34); Mean Corpuscular Volume 94.8 fL (80-100); Monocytes Absolute Auto 300 /uL (0-900); Monocytes Percent Auto 4.6 % (3-14); Neutrophils Absolute Auto 5000 /uL (1500-7000); Neutrophils Percent Auto 68.6 % (50-75); Platelet Count 177 X10^3/uL (150-400); Red Blood Cell Count 3.67 X10^6/uL (4.5-5.9); Red Cell Distribution Width 12.2 % (11.6-14.8); White Blood Cell Count 7.2 X10^3/uL (4.5-11.0)
[2023-11-14 10:50] LABS: Prothrombin Time 11.8 SECONDS (9.4-12.5)
[2023-11-14 10:52] LABS: PTT Partial Thromboplastin Tim 33 SECONDS (25.1-36.5)
[2023-11-14 11:00] LABS: Alanine Aminotransferase 16 IU/L (<50); Albumin 3.9 g/dL (3.5-5.0); Albumin Globulin Ratio 1.7 (1.0-2.8); Alkaline Phosphatase 40 U/L (38-126); Aspartate Aminotransferase 19 IU/L (17-59); BUN Creatinine Ratio 26.2 (6-22); Bilirubin Total 0.4 mg/dL (0.2-1.3); Blood Urea Nitrogen 22 mg/dL (9-20); Calcium 8.8 mg/dL (8.4-10.2); Carbon Dioxide 25 mmol/L (22-32); Chloride 110 mmol/L (98-107); Creatine Kinase 51 U/L (55-170); Estimated Glomerular Filt Rate > 60 mL/min (>60); Globulin 2.3 g/dL (1.7-4.1); Glucose 86 mg/dL (80-110); HEMOLYSIS < 15 (0-50); Magnesium 2.2 mg/dL (1.6-2.3); Potassium 4.4 mmol/L (3.4-5.1); Sodium 139 mmol/L (137-145); Total Protein 6.2 g/dL (6.3-8.2)
[2023-11-14] MEDS: SODIUM CHLORIDE 0.9% 500 ML 1000 ML IV ×2 (11:00→11:40)
[2023-11-14 11:08] LABS: NT-proBNP (BNP-Adult 18+) 242 pg/mL (<125)
[2023-11-14 11:12] LABS: Troponin I < 0.012 ng/mL (0.01-0.034)
[2023-11-14 11:34] LABS: Ur Creatinine Normal (Normal); Ur Specific Gravity Normal (Normal); Urine Benzodiazepines Positive (Negative); Urine pH Normal (Normal)
[2023-11-14 11:35] LABS: Urine Barbiturates Negative (Negative); Urine MDMA Negative (Negative); Urine Methadone Negative (Negative); Urine Oxycodone Negative (Negative); Urine Phencyclidine Negative (Negative); Urine THC Positive (Negative); Urine Tricyclic Antidepressant Positive (Negative)
[2023-11-14 11:36] LABS: Urine Amphetamines Negative (Negative); Urine Cocaine Negative (Negative); Urine Methamphetamines Negative (Negative); Urine Opiates Negative (Negative)
--- NOTE | 2023-11-14 12:27 | EKG_ITS ---
[address] [address] Test Date: 2023-11-14 Pat Name: Fidel Erwin Department: Room: Gender: Male Survey Superintendent: ASHLEY : 1965 Requested By: Order Number: [id number] Reading MD: Cody Lopez Measurements Intervals [place] Rate: 56 P: 64 AR: 194 QRS: -45 QRSD: 136 T: 31 QT: 458 QTc: 441 Interpretive Statements Sinus bradycardia Left axis deviation Left ventricular hypertrophy with QRS widening ( R in aVL , [place] product ) Inferior infarct , age undetermined Electronically Signed On 11-17-2023 12:19:14 PDT by Cody Lopez
--- NOTE | 2023-11-14 12:46 | PC.NURSE ---
Pt spilled urine on self while using it on the stretcher. Pt able to perform ADLs independently. Pt able to change pants and shirt without assistance. Pt able to walk at this baseline per patient. Pt does still c/o right hip pain. NIH now 2. Complete linen change and warm blankets also provided by this RN.
[2023-11-14 12:57] LABS: Troponin I < 0.012 ng/mL (0.01-0.034)
[2023-11-14] MEDS: ACETAMINOPHEN 325 MG TABLET 975 MG PO (12:58)
--- NOTE | 2023-11-14 13:48 | CM.SWNOTE ---
ED DIRECTOR AND PROFESSOR Note: Patient is a 58yo male, resident of [place] with his mother in an apartment, presented via EMS for a syncopal episode. Per [facility], pt presented for a similar reason yesterday, 11/12. Patient was also seen on 10/23/2023 for a syncopal episode. ED DIRECTOR AND PROFESSOR was consulted for possible resources for transportation or food benefits. Per notes, pt spoke with ED DIRECTOR AND PROFESSOR at previous presentation and was given more food bank resources in the community. ED DIRECTOR AND PROFESSOR entered room, pt was somnolent but able to communicate preferences. ED DIRECTOR AND PROFESSOR confirmed pt's home address and confirmed that pt would accept a taxi voucher with [employer]. Pt denied voucher and stated, Gabby is the last person I want to ride with. Pt confirmed he would rather walk home (two blocks). ED DIRECTOR AND PROFESSOR inquired if pt has Paratransit services with [employer]. Pt denied. Pt consented to this DIRECTOR AND PROFESSOR completing the online application for paratransit on pt's behalf. ED DIRECTOR AND PROFESSOR completed application for Paratransit which is for individuals whose conditions and/or disabilities prevent them from using [employer] regular fixed-route buses. Pt would qualify due to pt's hx of syncopal episodes. Plan: Pt to discharge home, pt refusing taxi voucher and confirmed he will walk home. MARIUSZ Keene
--- NOTE | 2023-11-14 13:50 | PC.NURSE ---
Offered pt taxi voucher for [place]. Pt declined. Pt stated he would rather walk. Pt continues to be ambulatory at his baseline at time of discharge. Able to ambulate to bathroom and out of ED independently. Pt provided with resources from as well.
== END 2023-11-14 13:51 | disposition home or self-care (01) ==
PROVIDERS: Emergency Provider Emergency Medicine; PCP Student in an Organized Health Care Education/Training Program
DX: I95.9 Hypotension, unspecified (principal); R00.1 Bradycardia, unspecified; R42 Dizziness and giddiness; R79.89 Other specified abnormal findings of blood chemistry
CPT/HCPCS: 36415; 70450; 70496; 70498; 71045; 80053; 80305; 81003; 82550; 82962; 83735; 83880; 84484; 85025; 85610; 85730; 93005; 99285; Q9967

== ENCOUNTER 2024-01-26 16:32 | Emergency (ER) | payer OTHER, MEDICAID, SELFPAY ==
[2022-06-27 17:19] VITALS: BMI 29.0
[2024-01-26 16:41] VITALS: BP 154/91; PULSE 99; RESP 16; TEMP 36.3; O2SAT 99; BMI 23.3
--- NOTE | 2024-01-26 17:34 | DI.CT.S_ITS ---
PROCEDURE: CT HEAD/BRAIN WO CON INDICATIONS: fall TECHNIQUE: Noncontrast 4.5 mm thick angled axial sections acquired from the foramen magnum to the vertex, with coronal and sagittal reformats. For radiation dose reduction, the following was used: automated exposure control, adjustment of mA and/or kV according to patient size. COMPARISON: [facility], CT, CT STROKE, 11/14/2023, 10:33. [facility], CT, CT CERVICAL SPINE WO CON, 01/26/2024, 17:41. [facility], CR, XR CHEST 1V, 11/14/2023, 10:37. [facility], CT, CT HEAD/BRAIN WO CON, 10/18/2022, 13:48. FINDINGS: Image quality: Diagnostic. CSF spaces: Basal cisterns are patent. No extra-axial fluid collections. The ventricles are stable, with ex vacuo dilatation of the right lateral ventricle. Brain: No intracranial bleeds or masses. There is cerebral volume loss for age, with resultant ventricular and sulcal prominence. There are periventricular and deep white matter chronic small vessel ischemic changes. Stable encephalomalacia can be seen involving the right frontal lobe anteriorly. There is intracranial internal carotid artery atherosclerosis. Skull and face: Calvarium and visualized facial bones appear intact, without suspicious lesions. Sinuses: Visualized sinuses and mastoids are clear. IMPRESSION: No acute intracranial hemorrhage is seen. No acute intracranial process is seen. Remote right frontal lobe encephalomalacia, which is attributed to a remote infarction. Dictated by: Pavan Solomon M.D. on 01/26/2024 at 17:00 Approved by: Pavan Solomon M.D. on 01/26/2024 at 17:01
--- NOTE | 2024-01-26 17:34 | DI.CT.S_ITS ---
PROCEDURE: CT CERVICAL SPINE WO CON INDICATIONS: fall TECHNIQUE: Noncontrast 3 mm thick sections acquired from the skull base to the T4 level. Sagittal and coronal reformats were then constructed. For radiation dose reduction, the following was used: automated exposure control, adjustment of mA and/or kV according to patient size. COMPARISON: [facility], CT, CT ANGIO HEAD AND NECK, 06/27/2022, 10:41. [facility], CR, XR CERVICAL SPINE 4V OR 5V, 09/24/2023, 8:43. [facility], CT, CT HEAD/BRAIN WO CON, 01/26/2024, 17:41. [facility], CR, XR CHEST 1V, 11/14/2023, 10:37. [facility], CT, CT CERVICAL SPINE WO CON, 10/18/2022, 13:48. FINDINGS: Image quality: This examination is somewhat limited by quantum mottle artifact. Bones: No fractures or dislocations. Visualized superior ribs are intact. Generalized degenerative changes are seen. Focal degenerative change is seen involving the C1-C2 interface anteriorly. There is mild disc space narrowing at C3-C4 and C4-C5, with at least moderate disc space narrowing at C5-C6 and C6-C7. At C5-C6, posteriorly directed endplate osteophytes are seen. Sternotomy wires are partially seen. Soft tissues: Prevertebral soft tissues are normal in thickness. No paravertebral hematomas. No apical pneumothoraces. Atherosclerotic calcification is noted. IMPRESSION: No displaced fracture or traumatic subluxation. Stable underlying degenerative changes are seen, which are overall worst at C5-C6. Dictated by: Pavan Solomon M.D. on 01/26/2024 at 17:01 Approved by: Pavan Solomon M.D. on 01/26/2024 at 17:03
--- NOTE | 2024-02-02 13:23 | ED_ITS ---
HPI - Head Injury <Christian Mccarthy PA-C - Last Filed: 02/02/24 14:54> General Chief complaint: Head Injury Stated complaint: GLF head injury last thursday Time Seen by Provider: 01/26/24 17:20 Source: patient Mode of arrival: Ambulatory History of Present Illness HPI Narrative: 58-year-old male with history of hypertension, dyslipidemia, prior stroke with left-sided weakness, bipolar disorder, coronary artery disease status post CABG in 2010, tobacco use and polysubstance abuse presents to the ED status post a fall sustained 6 days prior to arrival. Patient states that he fell on his patio, hitting his head. No loss of consciousness. No blood thinners. Patient states he is here in the ED since he has had severe, intermittent headache since this fall. Denies neck pain. No other injuries reported. Related Data Home Medications Medication Instructions Recorded Confirmed lisinopril 20 mg tablet 20 mg PO DAILY 10/06/23 01/26/24 Previous Rx's Medication Instructions Recorded albuterol sulfate 90 mcg/actuation 2 inh inhalation Q4-6H PRN 12/30/21 aerosol inhaler shortness of breath or wheezing #6.7 grams aspirin 81 mg tablet,delayed 81 mg PO DAILY #90 tabs 09/15/23 release (Adult Aspirin Regimen) atorvastatin 80 mg tablet 80 mg PO BEDTIME #90 tabs 09/15/23 bupropion HCl 150 mg 24 hr tablet, See Rx Instructions .Route 09/15/23 extended release .COMPLEX #90 tabs cyclobenzaprine 5 mg tablet 5 mg PO TID PRN muscle spasm #90 09/15/23 tabs gabapentin 600 mg tablet See Rx Instructions .Route 09/15/23 .COMPLEX #90 tabs metoprolol succinate 25 mg capsule 25 mg PO DAILY #90 ea 09/15/23 sprinkle, ext. release 24 hr naproxen 500 mg tablet 500 mg PO BID PRN pain #60 tabs 10/06/23 acetaminophen 500 mg tablet 1,000 mg (2 x 500 mg) PO Q6H PRN 11/14/23 (Tylenol Extra Strength) pain #20 tabs lidocaine 5 % topical patch 1 patch topical DAILY #30 ea 11/19/23 hydroxyzine pamoate 25 mg capsule 25 - 50 mg (1 - 2 x 25 mg) PO 3XD 12/31/23 PRN for anxiety attack #180 caps diazepam 5 mg tablet 5 mg PO BID PRN anxiety #60 tabs 01/26/24 Allergies Allergy/AdvReac Type Severity Reaction Status Date / Time No Known Drug Allergies Allergy Verified 01/26/24 16:44 Review of Systems <Crhistian Mccarthy PA-C - Last Filed: 02/02/24 14:54> Constitutional Constitutional: Denies chills, Denies fatigue, Denies fever(s), Denies frequent falls, Reports headache(s), Denies lethargy and Denies weakness Eyes Eyes: Denies change in vision, Denies eye discharge, Denies irritation and Denie s loss of vision ENT Ears, Nose, Mouth, and Throat: Denies change in voice, Denies dizziness, Reports headache(s), Denies neck pain, Denies sore throat and Denies throat swelling Cardiovascular Cardiovascular: Denies chest pain, Denies irregular heart rhythm, Denies lightheadedness, Denies palpitations, Denies dyspnea, Denies dyspnea on exertion and Denies orthopnea Respiratory Respiratory: Denies cough, Denies dyspnea, Denies dyspnea on exertion and Denies wheezing Gastrointestinal Gastrointestinal: Denies abdominal pain, Denies change in bowel habits, Denies diarrhea, Denies nausea and Denies vomiting Musculoskeletal Musculoskeletal: Denies neck pain and Denies numbness Integumentary/Breasts Skin/Breast: Denies pruritus, Denies erythema, Denies rash and Denies wounds Neurologic Neurologic: Denies behavioral changes, Denies confusion, Denies dizziness, Denies frequent falls, Reports headache(s), Denies loss of vision, Denies numbness and Denies weakness Psychiatric Psychiatric: Denies anxiety, Denies behavioral changes, Denies confusion, Denies depression, Denies homicidal ideation and Denies suicidal ideation Endocrine Endocrine: Denies fatigue, Denies flushing and Denies palpitations Hematologic/Lymphatic Hematologic/Lymphatic: Denies easy bruising Allergic/Immunologic Allergic/Immunologic: Denies urticaria, Denies throat swelling and Denies wheezing Patient History <Christian Mccarthy PA-C - Last Filed: 02/02/24 14:54> Medical History Tobacco use Bronchitis Chronic bronchitis Hyperlipidemia 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) Coronary artery disease Discitis Anxiety Acute osteomyelitis of lumbar spine HTN (hypertension) Surgical History H/O valvuloplasty S/P CABG x 4 Family History Grandfather Heart attack Family/Other Heart attack Social History household members: family Smoking Status: Current every day smoker alcohol intake: former Smoking Status: Current every day smoker tobacco type: cigarettes alcohol intake frequency: other Substance Use Type: marijuana Exam <Christian Mccarthy PA-C - Last Filed: 02/02/24 14:54> Narrative Exam Narrative: Const General:?cooperative, healthy appearing and comfortable HENMT Head:?normal to inspection Ears:?hearing grossly normal bilaterally Nose:?external nose normal Face and sinus:?normal facial exam and sinuses nontender Mouth:?oral mucosae normal Throat:?posterior oropharynx normal Eyes General:?appearance normal, both eyes and all related structures Neck Neck:?normal visual inspection and no lymphadenopathy noted Resp Effort & Inspection:?normal respiratory effort Auscultation:?clear to auscultation bilaterally Cardio Rate:?regular rate Rhythm:?regular rhythm Neuro General:?patient alert, patient awake and patient oriented x3; PERRLA; gait normal Initial Vital Signs Initial Vital Signs: Vital Signs Temperature 97.3 F L 01/26/24 16:41 Pulse Rate 99 H 01/26/24 16:41 Respiratory Rate 16 01/26/24 16:41 Blood Pressure 154/91 H 01/26/24 16:41 Pulse Oximetry 99 01/26/24 16:41 Oxygen Delivery Method Room Air 01/26/24 16:41 <Melvin Ferrara MD - Last Filed: 02/07/24 01:26> Initial Vital Signs Initial Vital Signs: Vital Signs Temperature 97.3 F L 01/26/24 16:41 Pulse Rate 99 H 01/26/24 16:41 Respiratory Rate 16 01/26/24 16:41 Blood Pressure 154/91 H 01/26/24 16:41 Pulse Oximetry 99 01/26/24 16:41 Oxygen Delivery Method Room Air 01/26/24 16:41 MDM - Head Injury <Christian Mccarthy PA-C - Last Filed: 02/02/24 14:54> MDM Narrative Medical decision making narrative: 58-year-old male with history of hypertension, dyslipidemia, prior stroke with left-sided weakness, bipolar disorder, coronary artery disease status post CABG in 2010, tobacco use and polysubstance abuse presents to the ED status post a fall sustained 6 days prior to arrival. Unclear if substance abuse or alcohol abuse was involved. Will obtain head CT, reassess. A head CT was obtained, however shortly thereafter, patient left the ED stating that he has had enough. Patient walked out unaided and against medical advice. Discharge Plan Departure Patient Disposition: Left Against Medical Advice Clinical Impression: Left against medical advice Prescriptions: No Action diazepam 5 mg tablet 5 mg PO BID PRN (Reason: anxiety) Qty: 60 0RF cyclobenzaprine 5 mg tablet 5 mg PO TID PRN (Reason: muscle spasm) Qty: 90 5RF aspirin [Adult Aspirin Regimen] 81 mg tablet,delayed release (DR/EC) 81 mg PO DAILY Qty: 90 3RF atorvastatin 80 mg tablet 80 mg PO BEDTIME Qty: 90 4RF Hold Instructions: Dimissed from Clinic 10/23/2022 gabapentin 600 mg tablet See Rx Instructions .ROUTE .COMPLEX Qty: 90 5RF Hold Instructions: Dimissed from Clinic 10/23/2022 Dose Instruction: TAKE 1 TABLET BY MOUTH THREE TIMES A DAY Rx Instructions: TAKE 1 TABLET BY MOUTH THREE TIMES A DAY metoprolol succinate 25 mg capsule,sprinkle,ER 24hr 25 mg PO DAILY Qty: 90 3RF Hold Instructions: Dimissed from Clinic 10/23/2022 bupropion HCl 150 mg tablet extended release 24 hr See Rx Instructions .ROUTE .COMPLEX Qty: 90 5RF Hold Instructions: Dimissed from Clinic 10/23/2022 Dose Instruction: TAKE 3 TABLETS BY MOUTH EVERY MORNING Rx Instructions: TAKE 1 TABLET BY MOUTH EVERY MORNING lisinopril 20 mg tablet 20 mg PO DAILY naproxen 500 mg tablet 500 mg PO BID PRN (Reason: pain) Qty: 60 3RF lidocaine 5 % adhesive patch,medicated 1 patch topical DAILY Qty: 30 3RF Rx Instructions: leave on most painful area for up to 12 hrs hydroxyzine pamoate 25 mg capsule 25 - 50 mg PO 3XD PRN (Reason: for anxiety attack) Qty: 180 0RF Hold Instructions: Dimissed from Clinic 10/23/2022 albuterol sulfate 90 mcg/actuation HFA aerosol inhaler 2 inh inhalation Q4-6H PRN (Reason: shortness of breath or wheezing) Qty: 6.7 3RF Hold Instructions: Dimissed from Clinic 10/23/2022 acetaminophen [Tylenol Extra Strength] 500 mg tablet 1,000 mg PO Q6H PRN (Reason: pain) Qty: 20 0RF Stand Alone Forms: Patient Portal/API, Against Medical Advice ED Sign-out <Melvin Ferrara MD - Last Filed: 02/07/24 01:26> [facility] I was immediately available in the department for consultation. This documentation has been reviewed and I agree with assessment and plan. Supervised by Melvin Ferrara MD
== END 2024-01-26 17:58 | disposition left against medical advice (07) ==
PROVIDERS: Emergency Provider Student in an Organized Health Care Education/Training Program; PCP Student in an Organized Health Care Education/Training Program
DX: S09.90XA Unspecified injury of head, initial encounter (principal); W18.09XA Striking against other object with subsequent fall, initial encounter
CPT/HCPCS: 70450; 72125; 99281; 99284

== ENCOUNTER 2024-05-21 09:45 | Emergency (ER) | payer MEDICARE, OTHER, MEDICAID, SELFPAY ==
[2022-06-27 17:19] VITALS: BMI 29.0
[2024-05-21 10:00] VITALS: BP 125/59; PULSE 69; RESP 18; TEMP 37; O2SAT 97; BMI 25.0
--- NOTE | 2024-05-21 10:06 | ED.BACK ---
HPI - Back Pain/Injury General Chief Complaint: Back Pain/Injury Stated Complaint: back pain radiating to both legs Time Seen by Provider: 05/21/24 10:06 Source: patient History of Present Illness HPI Narrative: 59-year-old male with a history of chronic low back pain hypertension, comes into the ED from home for evaluation of low back pain, states that he was at his doctor's office yesterday fell and was transported to [facility] Emergency Department, states he got x-rays there and was told everything was normal but did not get discharged home with any medications and is now requesting medication for pain given exacerbation of his low back pain. States that it is similar to previous just worse than normal oxygen down his right leg, denies any bowel or urinary incontinence or retention denies any numbness weakness tingling to lower extremities. Patient is able to stand bear weight ambulate unassisted here. Patient states that he does not have an orthopedic surgeon to follow up with, he denies any other symptoms at this time. Related Data Home Medications Medication Instructions Recorded Confirmed lisinopril 20 mg tablet 20 mg PO DAILY 10/06/23 05/02/24 Previous Rx's Medication Instructions Recorded albuterol sulfate 90 mcg/actuation 2 inh inhalation Q4-6H PRN 12/30/21 aerosol inhaler shortness of breath or wheezing #6.7 grams aspirin 81 mg tablet,delayed 81 mg PO DAILY #90 tabs 09/15/23 release (Adult Aspirin Regimen) atorvastatin 80 mg tablet 80 mg PO BEDTIME #90 tabs 09/15/23 bupropion HCl 150 mg 24 hr tablet, See Rx Instructions .Route 09/15/23 extended release .COMPLEX #90 tabs metoprolol succinate 25 mg capsule 25 mg PO DAILY #90 ea 09/15/23 sprinkle, ext. release 24 hr acetaminophen 500 mg tablet 1,000 mg (2 x 500 mg) PO Q6H PRN 11/14/23 (Tylenol Extra Strength) pain #20 tabs lidocaine 5 % topical patch 1 patch topical DAILY #30 ea 11/19/23 naproxen 500 mg tablet 500 mg PO BID PRN pain #60 tabs 02/18/24 gabapentin 600 mg tablet 600 mg PO 3XD #90 tabs 03/07/24 cyclobenzaprine 5 mg tablet 5 mg PO TID PRN muscle spasm #90 04/07/24 tabs diazepam 5 mg tablet 5 mg PO BID PRN anxiety #60 tabs 05/02/24 hydroxyzine pamoate 25 mg capsule 25 - 50 mg (1 - 2 x 25 mg) PO 3XD 05/12/24 PRN for anxiety attack #180 caps oxycodone-acetaminophen 5 mg-325 1 tab PO BID 1 day #2 tabs 05/21/24 mg tablet (Percocet) prednisone 20 mg tablet 20 mg PO DAILY 5 days #5 tabs 05/21/24 Allergies Allergy/AdvReac Type Severity Reaction Status Date / Time No Known Drug Allergies Allergy Verified 05/02/24 09:21 Review of Systems Review of Systems Narrative: General: Denies fever, chills, weight loss HEENT: Denies headache, eye drainage, eye irritation, head trauma, sore throat, voice change Cardiovascular: Denies any chest pain, palpitations, shortness of breath, tachycardia Respiratory: Denies any shortness of breath, cough, wheeze, stridor GI/: Denies any abdominal pain, nausea, vomiting, diarrhea, bright red blood per rectum, melanotic stools, urinary frequency, urinary retention, dysuria, hematuria MSK: Positive low back pain Skin: Denies any rashes, lesions, discoloration Neuro: Denies any headache, lightheadedness, dizziness, fainting, weakness Psych: Denies SI/HI Patient History Medical History Tobacco use Bronchitis Chronic bronchitis Hyperlipidemia 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) Coronary artery disease Discitis Anxiety Acute osteomyelitis of lumbar spine HTN (hypertension) Surgical History H/O valvuloplasty S/P CABG x 4 Family History Grandfather Heart attack Family/Other Heart attack Social History household members: family Smoking Status: Current every day smoker alcohol intake: former Smoking Status: Current every day smoker tobacco type: cigarettes alcohol intake frequency: other Exam Narrative Exam Narrative: General: Cooperative, comfortable, well-developed, not in acute distress HEENT: Normocephalic, atraumatic, PERRLA, normal sclera, eyelids normal, Neck: Active full range of motion, atraumatic Chest: Normal to inspection, negative crepitus, no overlying erythema ecchymosis Respiratory: Normal respiratory effort, not in acute respiratory distress, clear to auscultation bilaterally negative cough, wheeze, tachypnea, rhonchi, rales Cardiology: Regular rate rhythm negative gallop, murmur, rubs GI/: Normal to inspection, soft, nonrigid, no tenderness to palpation, exam deferred MSK: Full range of active range of motion of all 4 extremities, atraumatic, patient able to stand bear weight ambulate unassisted here in the emergency department, there is no tenderness to palpation of the lumbar or thoracic spine moderate tenderness to palpation of the paraspinal muscles on the right near the gluteal region neurovascularly intact lower extremity Skin: No rashes lesions noted Neuro: Alert awake oriented x3, moves all 4 extremities spontaneously, cranial nerves intact, able to answer all questions appropriately follows commands appropriately Psych: Cooperative, negative suicidal or homicidal ideations Initial Vital Signs Initial Vital Signs: Vital Signs Temperature 98.6 F 05/21/24 10:00 Pulse Rate 69 05/21/24 10:00 Respiratory Rate 18 05/21/24 10:00 Blood Pressure 125/59 L 05/21/24 10:00 Pulse Oximetry 97 05/21/24 10:00 Oxygen Delivery Method Room Air 05/21/24 10:00 Course Orders Ordered: Discontinued Medications Oxycodone/Acetaminophen (Oxycodone/Acetaminophen 5/325 Tablet) 1 tab PO NOW ONE Stop: 05/21/24 10:16 Prednisone (Prednisone 20 Mg Tablet) 60 mg PO NOW ONE Stop: 05/21/24 10:16 Vital Signs Vital signs: Vital Signs - 8 hr 05/21/24 10:00 Temperature 98.6 F Pulse Rate 69 Respiratory Rate 18 Blood Pressure 125/59 L Pulse Oximetry 97 Oxygen Delivery Method Room Air MDM - Back Pain/Injury Differential Diagnosis Differential diagnosis: Likely lumbar radiculopathy, strain of lumbar region and other (Acute on chronic low back pain) MDM Narrative Medical decision making narrative: 59-year-old male with history hypertension chronic low back pain presents for masturbation of this, states he had a mechanical trip and fall yesterday at his doctor's office was evaluated at the emergency department in [facility], states that he had imaging performed there which was negative for any acute fractures but states they did not send him home with any medication for his pain, he does not have a orthopedic surgeon he follows with, patient without any red flags for cauda equina. He is able to stand bear weight ambulate unassisted here in the emergency department, I informed him that we will be able to give him a dose of medication in a single day Percocets and will be sent home with additional medications such as steroids for his acute on chronic low back pain, however informed him that he needs to follow up with his primary care doctor as well as pain management and orthopedic surgery for continued treatment of his symptoms, I informed him that we will only be giving him pain today this 1 time and that the emergency department is not a police for his chronic low back pain. He verbalized understanding of this, he was given strict return precautions verbalized understanding of this and agrees to being discharged home with outpatient follow up Discharge Plan Departure Patient Disposition: Home Clinical Impression: Acute exacerbation of chronic low back pain Instructions: DI for Low Back Pain Activity Restrictions/Additional Instructions: Please follow up with Orthopedic surgery and primary care in outpatient setting Please read the discharge instructions sheet carefully and bring all papers to all doctor follow-up visits, as it may contain information that your doctor may want to see. Disease processes change and evolve, if your symptoms worsen or if you develop any new symptoms that are concerning to you please return for evaluation. Your evaluation today does not show any evidence of any life-threatening/serious illnesses requiring admission to the hospital or surgery. Please follow-up with your doctor for re-evaluation in approximately 1 day. Seek immediate medical attention for any worrisome symptoms. *If you do not have a primary care provider please contact the [facility] Resource line at [phone]. They will ask some questions about your medical history and help get you set up with a doctor in the community. Prescriptions: New oxycodone-acetaminophen [Percocet] 5-325 mg tablet 1 tab PO BID 1 Days Qty: 2 0RF prednisone 20 mg tablet 20 mg PO DAILY 5 Days Qty: 5 0RF No Action diazepam 5 mg tablet 5 mg PO BID PRN (Reason: anxiety) Qty: 60 2RF aspirin [Adult Aspirin Regimen] 81 mg tablet,delayed release (DR/EC) 81 mg PO DAILY Qty: 90 3RF atorvastatin 80 mg tablet 80 mg PO BEDTIME Qty: 90 4RF Hold Instructions: Dimissed from Clinic 10/23/2022 metoprolol succinate 25 mg capsule,sprinkle,ER 24hr 25 mg PO DAILY Qty: 90 3RF Hold Instructions: Dimissed from Clinic 10/23/2022 bupropion HCl 150 mg tablet extended release 24 hr See Rx Instructions .ROUTE .COMPLEX Qty: 90 5RF Hold Instructions: Dimissed from Clinic 10/23/2022 Dose Instruction: TAKE 3 TABLETS BY MOUTH EVERY MORNING Rx Instructions: TAKE 1 TABLET BY MOUTH EVERY MORNING lisinopril 20 mg tablet 20 mg PO DAILY lidocaine 5 % adhesive patch,medicated 1 patch topical DAILY Qty: 30 3RF Rx Instructions: leave on most painful area for up to 12 hrs naproxen 500 mg tablet 500 mg PO BID PRN (Reason: pain) Qty: 60 3RF gabapentin 600 mg tablet 600 mg PO 3XD Qty: 90 4RF Hold Instructions: Dimissed from Clinic 10/23/2022 cyclobenzaprine 5 mg tablet 5 mg PO TID PRN (Reason: muscle spasm) Qty: 90 5RF hydroxyzine pamoate 25 mg capsule 25 - 50 mg PO 3XD PRN (Reason: for anxiety attack) Qty: 180 0RF Hold Instructions: Dimissed from Clinic 10/23/2022 albuterol sulfate 90 mcg/actuation HFA aerosol inhaler 2 inh inhalation Q4-6H PRN (Reason: shortness of breath or wheezing) Qty: 6.7 3RF Hold Instructions: Dimissed from Clinic 10/23/2022 acetaminophen [Tylenol Extra Strength] 500 mg tablet 1,000 mg PO Q6H PRN (Reason: pain) Qty: 20 0RF Referrals: Vic Cottrell MD [Physician] - Luz Saravia MD [Primary Care Provider] - Stand Alone Forms: Patient Portal/API/Survey
[2024-05-21] MEDS: OXYCODONE/ACETAMINOPHEN 5/325 TABLET 1 TAB PO (10:27)
[2024-05-21] MEDS: predniSONE 20 MG TABLET 60 MG PO (10:27)
== END 2024-05-21 10:30 | disposition home or self-care (01) ==
PROVIDERS: Emergency Provider Student in an Organized Health Care Education/Training Program; PCP Student in an Organized Health Care Education/Training Program
DX: M54.50 Low back pain, unspecified (principal); G89.29 Other chronic pain; I10 Essential (primary) hypertension; F17.210 Nicotine dependence, cigarettes, uncomplicated
CPT/HCPCS: 99283

== ENCOUNTER 2024-06-09 10:44 | Emergency (ER) | payer MEDICARE, OTHER, MEDICAID, SELFPAY ==
[2022-06-27 17:19] VITALS: BMI 29.0
[2024-06-09] VITALS (71 sets, daily range): BP systolic 75–135; BP diastolic 47–62; PULSE 44–66; RESP 12–38; TEMP 36.9; O2SAT 96–100; BMI 25.0
--- NOTE | 2024-06-09 10:52 | ED.AMS ---
HPI - Altered Mental Status General Chief Complaint: Toxicology Problem Stated Complaint: confusion, lethargy Time Seen by Provider: 06/09/24 10:52 History of Present Illness HPI narrative: 59-year-old male with a past medical history of hypertension hyperlipidemia bipolar CABG polysubstance abuse comes into the ED from dentist office for evaluation of altered mental status versus overdose. According to the patient he took approximately 10 mg of Valium for his chronic low back pain. Patient was also noted to be hypotensive by medics patient was started on 1 L normal saline prior to arrival. Here patient A&O x3 however does appear slow to respond but no focal deficits. NIH of 0, initial blood pressure 88/52, patient has a known history of persistent hypotension has been seen here multiple times for the same. Patient denies taking any other drugs or medications. Related Data Home Medications Medication Instructions Recorded Confirmed lisinopril 20 mg tablet 20 mg PO DAILY 10/06/23 05/02/24 Previous Rx's Medication Instructions Recorded albuterol sulfate 90 mcg/actuation 2 inh inhalation Q4-6H PRN 12/30/21 aerosol inhaler shortness of breath or wheezing #6.7 grams aspirin 81 mg tablet,delayed 81 mg PO DAILY #90 tabs 09/15/23 release (Adult Aspirin Regimen) atorvastatin 80 mg tablet 80 mg PO BEDTIME #90 tabs 09/15/23 bupropion HCl 150 mg 24 hr tablet, See Rx Instructions .Route 09/15/23 extended release .COMPLEX #90 tabs metoprolol succinate 25 mg capsule 25 mg PO DAILY #90 ea 09/15/23 sprinkle, ext. release 24 hr acetaminophen 500 mg tablet 1,000 mg (2 x 500 mg) PO Q6H PRN 11/14/23 (Tylenol Extra Strength) pain #20 tabs lidocaine 5 % topical patch 1 patch topical DAILY #30 ea 11/19/23 naproxen 500 mg tablet 500 mg PO BID PRN pain #60 tabs 02/18/24 gabapentin 600 mg tablet 600 mg PO 3XD #90 tabs 03/07/24 hydroxyzine pamoate 25 mg capsule 25 - 50 mg (1 - 2 x 25 mg) PO 3XD 05/12/24 PRN for anxiety attack #180 caps diazepam 5 mg tablet 5 mg PO BID PRN anxiety #6 tabs 05/23/24 methocarbamol 500 mg tablet 500 mg PO TID #30 tabs 05/23/24 Allergies Allergy/AdvReac Type Severity Reaction Status Date / Time No Known Drug Allergies Allergy Verified 05/02/24 09:21 Review of Systems Review of Systems Narrative: General: Denies fever, chills, weight loss HEENT: Denies headache, eye drainage, eye irritation, head trauma, sore throat, voice change Cardiovascular: Denies any chest pain, palpitations, shortness of breath, tachycardia Respiratory: Denies any shortness of breath, cough, wheeze, stridor GI/: Denies any abdominal pain, nausea, vomiting, diarrhea, bright red blood per rectum, melanotic stools, urinary frequency, urinary retention, dysuria, hematuria MSK: Denies any joint pain, muscle pains, swelling Skin: Denies any rashes, lesions, discoloration Neuro: Denies any headache, lightheadedness, dizziness, fainting, weakness Psych: Denies SI/HI Patient History Medical History Tobacco use Bronchitis Chronic bronchitis Hyperlipidemia 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) Coronary artery disease Discitis Anxiety Acute osteomyelitis of lumbar spine HTN (hypertension) Surgical History H/O valvuloplasty S/P CABG x 4 Family History Grandfather Heart attack Family/Other Heart attack Social History household members: family Smoking Status: Current every day smoker alcohol intake: former Smoking Status: Current every day smoker tobacco type: cigarettes alcohol intake frequency: other Exam Narrative Exam Narrative: General: Cooperative, comfortable, well-developed, not in acute distress HEENT: Normocephalic, atraumatic, PERRLA, normal sclera, eyelids normal, Neck: Active full range of motion, atraumatic Chest: Normal to inspection, negative crepitus, no overlying erythema ecchymosis Respiratory: Normal respiratory effort, not in acute respiratory distress, clear to auscultation bilaterally negative cough, wheeze, tachypnea, rhonchi, rales Cardiology: Regular rate rhythm negative gallop, murmur, rubs GI/: Normal to inspection, soft, nonrigid, no tenderness to palpation, exam deferred MSK: Full range of active range of motion of all 4 extremities, atraumatic Skin: No rashes lesions noted Neuro: NIH of 0, no focal deficits noted patient drowsy but arousable, moves all 4 extremities spontaneously, cranial nerves intact, able to answer all questions appropriately follows commands appropriately Psych: Cooperative, negative suicidal or homicidal ideations Initial Vital Signs Initial Vital Signs: Vital Signs Blood Pressure 88/52 L 06/09/24 10:50 Course Orders Ordered: ED Orders 06/09/24 10:50 Acetaminophen Stat CBC Auto Diff [Complete Blood Count AUTO DIFF] Stat CMP [Comprehensive Metabolic Panel] Stat Ethanol (ETOH) Stat Salicylate Stat TSH w/ Reflex to FT4 Stat 06/09/24 10:54 EKG-12 Lead Stat 06/09/24 13:25 Urine Drug Screen, Rapid Stat Discontinued Medications Sodium Chloride (Normal Saline 0.9%) 1,000 mls @ 1,000 mls/hr IV BOLUS ONE Stop: 06/09/24 11:53 Last Infusion: 06/09/24 11:14 Dose: Infused Documented By: Admin: 06/09/24 10:55 Dose: 1,000 mls/hr Documented By: PRESTON Vital Signs Vital signs: Vital Signs - 8 hr 06/09/24 10:50 06/09/24 10:51 06/09/24 10:52 Temperature 98.5 F Pulse Rate 66 60 Respiratory Rate 20 20 Blood Pressure 88/52 L 88/52 L Pulse Oximetry 100 96 Oxygen Delivery Method Room Air 06/09/24 10:52 06/09/24 10:52 06/09/24 10:55 Temperature Pulse Rate 61 58 L Respiratory Rate 19 19 Blood Pressure 88/54 L Pulse Oximetry 99 98 Oxygen Delivery Method 06/09/24 10:56 06/09/24 10:56 06/09/24 11:00 Temperature Pulse Rate 58 L 56 L Respiratory Rate 16 15 Blood Pressure 100/56 L Pulse Oximetry 98 99 Oxygen Delivery Method 06/09/24 11:00 06/09/24 11:04 06/09/24 11:04 Temperature Pulse Rate 57 L Respiratory Rate 15 Blood Pressure 110/58 L 117/59 L Pulse Oximetry 98 Oxygen Delivery Method 06/09/24 11:05 06/09/24 11:08 06/09/24 11:08 Temperature Pulse Rate 57 L 57 L Respiratory Rate 15 15 Blood Pressure 108/58 L Pulse Oximetry 99 99 Oxygen Delivery Method 06/09/24 11:10 06/09/24 11:12 06/09/24 11:12 Temperature Pulse Rate 65 56 L Respiratory Rate 14 14 Blood Pressure 109/58 L Pulse Oximetry 99 100 Oxygen Delivery Method 06/09/24 11:15 06/09/24 11:15 06/09/24 11:20 Temperature Pulse Rate 54 L 54 L Respiratory Rate 15 16 Blood Pressure 104/59 L Pulse Oximetry 100 100 Oxygen Delivery Method 06/09/24 11:25 06/09/24 11:30 06/09/24 11:31 Temperature Pulse Rate 55 L 56 L 56 L Respiratory Rate 15 16 16 Blood Pressure Pulse Oximetry 99 98 98 Oxygen Delivery Method 06/09/24 11:31 06/09/24 11:34 06/09/24 11:34 Temperature Pulse Rate 56 L Respiratory Rate 15 Blood Pressure 85/51 L 99/56 L Pulse Oximetry 98 Oxygen Delivery Method 06/09/24 11:35 06/09/24 11:40 06/09/24 11:45 Temperature Pulse Rate 57 L 59 L 59 L Respiratory Rate 15 16 15 Blood Pressure Pulse Oximetry 98 98 98 Oxygen Delivery Method 06/09/24 11:45 06/09/24 11:50 06/09/24 11:55 Temperature Pulse Rate 60 62 Respiratory Rate 16 16 Blood Pressure 95/51 L Pulse Oximetry 97 99 Oxygen Delivery Method 06/09/24 12:00 06/09/24 12:00 06/09/24 12:05 Temperature Pulse Rate 58 L 58 L Respiratory Rate 14 15 Blood Pressure 101/58 L Pulse Oximetry 97 97 Oxygen Delivery Method 06/09/24 12:10 06/09/24 12:15 06/09/24 12:16 Temperature Pulse Rate 58 L 58 L 58 L Respiratory Rate 15 15 14 Blood Pressure Pulse Oximetry 97 96 97 Oxygen Delivery Method 06/09/24 12:16 06/09/24 12:20 06/09/24 12:25 Temperature Pulse Rate 58 L 59 L Respiratory Rate 15 15 Blood Pressure 87/51 L Pulse Oximetry 97 96 Oxygen Delivery Method 06/09/24 12:30 06/09/24 12:30 06/09/24 12:35 Temperature Pulse Rate 58 L 58 L Respiratory Rate 15 15 Blood Pressure 92/51 L Pulse Oximetry 97 96 Oxygen Delivery Method 06/09/24 12:40 06/09/24 12:45 06/09/24 12:45 Temperature Pulse Rate 58 L 58 L Respiratory Rate 15 14 Blood Pressure 95/55 L Pulse Oximetry 96 96 Oxygen Delivery Method 06/09/24 12:50 06/09/24 12:55 06/09/24 13:00 Temperature Pulse Rate 57 L 56 L 55 L Respiratory Rate 15 15 15 Blood Pressure Pulse Oximetry 97 97 97 Oxygen Delivery Method 06/09/24 13:05 06/09/24 13:10 06/09/24 13:15 Temperature Pulse Rate 53 L 51 L 58 L Respiratory Rate 14 15 14 Blood Pressure Pulse Oximetry 98 98 100 Oxygen Delivery Method 06/09/24 13:16 06/09/24 13:16 06/09/24 13:18 Temperature Pulse Rate 47 L 59 L Respiratory Rate 12 24 Blood Pressure 122/62 Pulse Oximetry 100 99 Oxygen Delivery Method 06/09/24 13:18 06/09/24 13:20 06/09/24 13:25 Temperature Pulse Rate 63 59 L Respiratory Rate 38 H 18 Blood Pressure 135/62 Pulse Oximetry 98 Oxygen Delivery Method 06/09/24 13:30 06/09/24 13:33 06/09/24 13:33 Temperature Pulse Rate 58 L 54 L Respiratory Rate 34 H 17 Blood Pressure 114/57 L Pulse Oximetry 98 96 Oxygen Delivery Method 06/09/24 13:35 06/09/24 13:40 06/09/24 13:45 Temperature Pulse Rate 53 L 49 L 52 L Respiratory Rate 15 14 16 Blood Pressure Pulse Oximetry 96 99 96 Oxygen Delivery Method 06/09/24 13:45 06/09/24 13:50 06/09/24 13:55 Temperature Pulse Rate 47 L 48 L Respiratory Rate 12 12 Blood Pressure 110/58 L Pulse Oximetry 98 98 Oxygen Delivery Method 06/09/24 14:00 06/09/24 14:01 06/09/24 14:01 Temperature Pulse Rate 58 L 56 L Respiratory Rate 24 23 Blood Pressure 115/60 Pulse Oximetry 98 100 Oxygen Delivery Method 06/09/24 14:05 06/09/24 14:10 06/09/24 14:15 Temperature Pulse Rate 47 L 44 L 46 L Respiratory Rate 15 13 15 Blood Pressure Pulse Oximetry 100 99 100 Oxygen Delivery Method 06/09/24 14:16 06/09/24 14:16 06/09/24 14:20 Temperature Pulse Rate 46 L 46 L Respiratory Rate 14 15 Blood Pressure 99/54 L Pulse Oximetry 100 100 Oxygen Delivery Method 06/09/24 14:25 06/09/24 14:30 06/09/24 14:30 Temperature Pulse Rate 47 L 47 L Respiratory Rate 15 15 Blood Pressure 79/49 L Pulse Oximetry 99 98 Oxygen Delivery Method 06/09/24 14:35 06/09/24 14:39 06/09/24 14:39 Temperature Pulse Rate 46 L 51 L Respiratory Rate 14 19 Blood Pressure 99/55 L Pulse Oximetry 98 99 Oxygen Delivery Method 06/09/24 14:40 06/09/24 14:45 06/09/24 14:46 Temperature Pulse Rate 51 L 46 L 47 L Respiratory Rate 18 14 14 Blood Pressure Pulse Oximetry 99 100 100 Oxygen Delivery Method 06/09/24 14:46 06/09/24 14:50 06/09/24 14:55 Temperature Pulse Rate 45 L 47 L Respiratory Rate 13 14 Blood Pressure 113/58 L Pulse Oximetry 100 100 Oxygen Delivery Method 06/09/24 15:00 06/09/24 15:00 06/09/24 15:05 Temperature Pulse Rate 48 L 48 L Respiratory Rate 14 14 Blood Pressure 85/50 L Pulse Oximetry 99 99 Oxygen Delivery Method 06/09/24 15:10 06/09/24 15:15 06/09/24 15:18 Temperature Pulse Rate 49 L 50 L 49 L Respiratory Rate 15 14 15 Blood Pressure Pulse Oximetry 98 97 98 Oxygen Delivery Method 06/09/24 15:18 Temperature Pulse Rate Respiratory Rate Blood Pressure 75/47 L Pulse Oximetry Oxygen Delivery Method MDM - Altered Mental Status Differential Diagnosis Differential diagnosis: Likely alcoholic intoxication and other (Electrolyte abnormality, drug overdose) Lab Data 06/09/24 10:50 06/09/24 10:50 Labs: Lab Results 06/09/24 06/09/24 Range/Units 10:50 13:25 WBC 7.0 (4.5-11.0) X10^3/uL RBC 3.92 L (4.5-5.9) X10^6/uL Hgb 12.7 L (13.5-17.5) g/dL Hct 36.9 L (41-53) % MCV 94.0 (80-100) fL MCH 32.4 (26-34) PG MCHC 34.5 (30-36) % RDW 13.7 (11.6-14.8) % Plt Count 190 (150-400) X10^3/uL Neut % (Auto) 75.7 H (50-75) % Lymph % (Auto) 17.8 L (25-40) % [place] % (Auto) 4.1 (3-14) % Eos % (Auto) 1.8 L (2-4) % Baso % (Auto) 0.6 (0-2) % Neut # (Auto) 5300 (0359-1179) /uL Lymph # (Auto) 1200 (2339-2717) /uL [place] # (Auto) 300 (0-900) /uL Eos # (Auto) 100 (0-450) /uL Baso # (Auto) 0 (0-100) /uL Sodium 139 (137-145) mmol/L Potassium 3.9 (3.4-5.1) mmol/L Chloride 107 (98-107) mmol/L Carbon Dioxide 23 (22-32) mmol/L BUN 27 H (9-20) mg/dL Creatinine 0.86 (0.66-1.25) mg/dL Estimated GFR > 60 (>60) mL/min BUN/Creatinine Ratio 31.4 H (6-22) Glucose 86 (80-110) mg/dL Calcium 9.3 (8.4-10.2) mg/dL Total Bilirubin 1.1 (0.2-1.3) mg/dL AST 23 (17-59) IU/L ALT 22 (<50) IU/L Alkaline Phosphatase 40 (38-126) U/L Total Protein 6.9 (6.3-8.2) g/dL Albumin 4.4 (3.5-5.0) g/dL Globulin 2.5 (1.7-4.1) g/dL Albumin/Globulin Ratio 1.8 (1.0-2.8) TSH 0.55 (0.47-4.68) uIU/mL Salicylates < 1.0 (<20) mg/dL U Opiates 300ng/mL cut Negative (Negative) Ur Oxycodone Screen Negative (Negative) Urine Methadone Screen Negative (Negative) Acetaminophen < 10 (10-30) ug/mL Ur Barbiturates Screen Negative (Negative) U Tricyclic Antidepress Positive H (Negative) Ur Phencyclidine Scrn Negative (Negative) Ur Amphetamines Screen Negative (Negative) U Methamphetamines Scrn Negative (Negative) Ur MDMA Scrn (Ecstasy) Negative (Negative) U Benzodiazepines Scrn Positive H (Negative) Urine Cocaine Screen Negative (Negative) U Marijuana (THC) Screen Positive H (Negative) Urine pH Normal (Normal) Urine Specific [place] Normal (Normal) Ethyl Alcohol < 10 ( - 10) mg/dL Ur Creatinine Normal (Normal) Urine Dip Bedside Urine Glucose Negative Bedside Urine Bilirubin - Negative Bedside Urine Ketone - Negative Urine Specific [place] 1.010 Bedside Urine Occult Blood - Negative Bedside Urine pH 6.0 Bedside Urine Protein - Negative Bedside Urine Urobilinogen - Negative Bedside Urine Nitrite - Negative Bedside Urine Leukocytes - Negative Esterase ECG Data Interpretation: EKG interpreted ED physician sinus bradycardia at 58 beats per minute left axis deviation nonspecific ST changes no STEMI MDM Narrative Medical decision making narrative: 59-year-old male with a history hypotension, polysubstance abuse, hyperlipidemia, comes into the ED from dentist office for altered mental status/drug overdose. Patient states that he did take a proximally 10 mg of Valium prior to going to the dentist office because he was having some exacerbation of his low back pain. At time of evaluation patient drowsy but arousable no focal deficits noted not complaining of any symptoms. Patients blood pressure improved after a L of normal saline here in the emergency department EKG nonischemic no arrhythmia noted. Patient had lab work performed here no leukocytosis, Chem panel unremarkable. Patient had improvement of his hypotension after a L of normal saline. Patient was able to stand bear weight ambulate here in the emergency department stating that he wants to go home, denies any suicidal or homicidal ideation. He has not complaining of any headache visual disturbances chest pain shortness breath or any other symptoms. I was informed that patient decided to walk out stating that he does not want to wait for his discharge paperwork. However I did talk to him before leaving and gave him strict return precautions he verbalized understanding of this patient will be sent home with strict return precautions and instructed follow up with primary care in outpatient setting. Review of records shows that patient does have a history of bradycardia and hypotension. Patient with improved symptoms when he is awake talking, normal mentation when he is awake, he was able to stand bear weight ambulate unassisted and use the restroom here in the emergency department Discharge Plan Departure Patient Disposition: Home Clinical Impression: Polysubstance abuse, Bradycardia, Acute hypotension Activity Restrictions/Additional Instructions: Please follow up with primary care Please read the discharge instructions sheet carefully and bring all papers to all doctor follow-up visits, as it may contain information that your doctor may want to see. Disease processes change and evolve, if your symptoms worsen or if you develop any new symptoms that are concerning to you please return for evaluation. Your evaluation today does not show any evidence of any life-threatening/serious illnesses requiring admission to the hospital or surgery. Please follow-up with your doctor for re-evaluation in approximately 1 day. Seek immediate medical attention for any worrisome symptoms. *If you do not have a primary care provider please contact the [facility] Resource line at [phone]. They will ask some questions about your medical history and help get you set up with a doctor in the community. Prescriptions: No Action aspirin [Adult Aspirin Regimen] 81 mg tablet,delayed release (DR/EC) 81 mg PO DAILY Qty: 90 3RF atorvastatin 80 mg tablet 80 mg PO BEDTIME Qty: 90 4RF Hold Instructions: Dimissed from Clinic 10/23/2022 metoprolol succinate 25 mg capsule,sprinkle,ER 24hr 25 mg PO DAILY Qty: 90 3RF Hold Instructions: Dimissed from Clinic 10/23/2022 bupropion HCl 150 mg tablet extended release 24 hr See Rx Instructions .ROUTE .COMPLEX Qty: 90 5RF Hold Instructions: Dimissed from Clinic 10/23/2022 Dose Instruction: TAKE 3 TABLETS BY MOUTH EVERY MORNING Rx Instructions: TAKE 1 TABLET BY MOUTH EVERY MORNING lisinopril 20 mg tablet 20 mg PO DAILY lidocaine 5 % adhesive patch,medicated 1 patch topical DAILY Qty: 30 3RF Rx Instructions: leave on most painful area for up to 12 hrs naproxen 500 mg tablet 500 mg PO BID PRN (Reason: pain) Qty: 60 3RF gabapentin 600 mg tablet 600 mg PO 3XD Qty: 90 4RF Hold Instructions: Dimissed from Clinic 10/23/2022 hydroxyzine pamoate 25 mg capsule 25 - 50 mg PO 3XD PRN (Reason: for anxiety attack) Qty: 180 0RF Hold Instructions: Dimissed from Clinic 10/23/2022 diazepam 5 mg tablet 5 mg PO BID PRN (Reason: anxiety) Qty: 6 0RF methocarbamol 500 mg tablet 500 mg PO TID Qty: 30 0RF albuterol sulfate 90 mcg/actuation HFA aerosol inhaler 2 inh inhalation Q4-6H PRN (Reason: shortness of breath or wheezing) Qty: 6.7 3RF Hold Instructions: Dimissed from Clinic 10/23/2022 acetaminophen [Tylenol Extra Strength] 500 mg tablet 1,000 mg PO Q6H PRN (Reason: pain) Qty: 20 0RF Referrals: Luz Saravia MD [Primary Care Provider] - Stand Alone Forms: Patient Portal/API/Survey
--- NOTE | 2024-06-09 10:54 | EKG_ITS ---
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
[2024-06-09] MEDS: SODIUM CHLORIDE 0.9% 1,000 ML 1000 ML IV (10:55)
[2024-06-09 11:01] LABS: Add Manual Diff / Slide Review NO; Basophils Absolute Auto 0 /uL (0-100); Basophils Percent Auto 0.6 % (0-2); Eosinophils Absolute Auto 100 /uL (0-450); Eosinophils Percent Auto 1.8 % (2-4); Hematocrit 36.9 % (41-53); Hemoglobin 12.7 g/dL (13.5-17.5); Lymphocytes Absolute Auto 1200 /uL (1100-4500); Lymphocytes Percent Auto 17.8 % (25-40); Mean Corpuscular HGB Conc 34.5 % (30-36); Mean Corpuscular Hemoglobin 32.4 PG (26-34); Monocytes Absolute Auto 300 /uL (0-900); Monocytes Percent Auto 4.1 % (3-14); Neutrophils Absolute Auto 5300 /uL (1500-7000); Neutrophils Percent Auto 75.7 % (50-75); Platelet Count 190 X10^3/uL (150-400); Red Blood Cell Count 3.92 X10^6/uL (4.5-5.9); Red Cell Distribution Width 13.7 % (11.6-14.8)
[2024-06-09 11:13] LABS: Acetaminophen < 10 ug/mL (10-30); Alanine Aminotransferase 22 IU/L (<50); Albumin 4.4 g/dL (3.5-5.0); Albumin Globulin Ratio 1.8 (1.0-2.8); Alkaline Phosphatase 40 U/L (38-126); Aspartate Aminotransferase 23 IU/L (17-59); BUN Creatinine Ratio 31.4 (6-22); Bilirubin Total 1.1 mg/dL (0.2-1.3); Blood Urea Nitrogen 27 mg/dL (9-20); Calcium 9.3 mg/dL (8.4-10.2); Carbon Dioxide 23 mmol/L (22-32); Chloride 107 mmol/L (98-107); Estimated Glomerular Filt Rate > 60 mL/min (>60); Ethanol (ETOH) < 10 mg/dL; Globulin 2.5 g/dL (1.7-4.1); Glucose 86 mg/dL (80-110); HEMOLYSIS < 15 (0-50); Potassium 3.9 mmol/L (3.4-5.1); Salicylate < 1.0 mg/dL (<20); Sodium 139 mmol/L (137-145); Total Protein 6.9 g/dL (6.3-8.2)
[2024-06-09 11:55] LABS: TSH w/ Reflex to FT4 0.55 uIU/mL (0.47-4.68)
--- NOTE | 2024-06-09 13:35 | PC.NURSE ---
Pt complains of right hip and femure pain. Patient pedal pulse regular and strong. Leg is warm and dry to touch. No signs of bruising or swelling in hip or femur.
[2024-06-09 13:47] LABS: Ur Creatinine Normal (Normal); Ur Specific Gravity Normal (Normal); Urine pH Normal (Normal)
[2024-06-09 13:48] LABS: UR Morphine/Opiate cutoff 300 Negative (Negative); Urine Amphetamines Negative (Negative); Urine Barbiturates Negative (Negative); Urine Benzodiazepines Positive (Negative); Urine Cocaine Negative (Negative); Urine MDMA Negative (Negative); Urine Methadone Negative (Negative); Urine Methamphetamines Negative (Negative); Urine Oxycodone Negative (Negative); Urine Phencyclidine Negative (Negative); Urine Tetrahydrocannabinol Positive (Negative); Urine Tricyclic Antidepressant Positive (Negative)
--- NOTE | 2024-06-09 14:40 | PC.NURSE ---
The patient was assessed. He was having low BP and a slow HR. Vital signs were discussed with the provider and it was decided that the patient would change positions and have his pressure reassessed. His pressure responded within the parameters that the MD set. The patient is alert and oriented to his baseline.
--- NOTE | 2024-06-09 16:10 | PC.NURSE ---
The patient was asked if he was willing to sign his DC paperwork and get dc instructions and he stated I'm not singing shit, you guys didn't help me at all. He was complaining of hip pain and asking for pain medication. The patient was alert and ambulatory with a steady gait at time of leaving but declined to receive discharge paperwork.
== END 2024-06-09 16:15 | disposition home or self-care (01) ==
PROVIDERS: Emergency Provider Student in an Organized Health Care Education/Training Program; PCP Student in an Organized Health Care Education/Training Program
DX: F19.10 Other psychoactive substance abuse, uncomplicated (principal); R00.1 Bradycardia, unspecified; I95.9 Hypotension, unspecified
CPT/HCPCS: 36415; 80053; 80305; 80320; 80329; 81003; 84443; 85025; 93005; 99284; G0480

== ENCOUNTER 2024-07-05 10:06 | Emergency (ER) | payer MEDICARE, OTHER, MEDICAID, SELFPAY ==
[2022-06-27 17:19] VITALS: BMI 29.0
[2024-07-05 10:08] VITALS: BP 187/95; PULSE 115; RESP 14; TEMP 36.4; O2SAT 100; BMI 26.6
--- NOTE | 2024-07-05 11:10 | PC.NURSE ---
Pt left without being seen. Stated that he did not want to wait anymore and that he was feeling claustrophic. Offered to leave door open to help pt feel more comfortable and pt reports that he did that and it did not help. Ambulated out of dept with steady gait.
== END 2024-07-05 10:55 | disposition left against medical advice (07) ==
PROVIDERS: Emergency Provider Emergency Medicine; PCP Student in an Organized Health Care Education/Training Program
CPT/HCPCS: 99281

== ENCOUNTER → 2024-07-17 14:26 | Outpatient (CLI) | payer MEDICARE, MEDICAID, SELFPAY ==
[2022-06-27 17:19] VITALS: BMI 29.0
--- NOTE | 2024-07-17 14:31 | DI.MRI.S_ITS ---
P knee ROCEDURE: MR LUMBAR SPINE WO CON INDICATIONS: increased low back pain TECHNIQUE: Noncontrast sagittal T1 spin echo and T2 fast echo, sagittal STIR, and T2 fast spin echo through the lumbar spine. In cases with scoliosis, additional coronal T2 fast spin echo may be performed. COMPARISON: [facility], MR, MR LUMBAR SPINE WO CON, 06/16/2019, 14:21. FINDINGS: Image quality: Diagnostic Alignment and Curvature: There is normal bony alignment. Bone Marrow: Marrow is of normal overall signal. No acute vertebral body compression fractures. Spinal Cord: Conus medullaris terminates at the T12 level. Visualized cord demonstrates normal signal and size. Paraspinous Soft Tissues: No paravertebral masses. Small bilateral renal cysts measuring up to 1.5 cm on the left and 1.0 cm on the right. T12-L1: Bilateral facet arthropathy. No significant neuroforaminal or spinal canal stenosis. L1-L2: Progression of spondylitic changes with near complete fusion across the L1-2 interspace. Mild bilateral facet arthropathy. Moderate-severe left and moderate right bilateral neuroforaminal stenosis. No significant spinal canal stenosis. L2-L3: Moderate bilateral facet arthropathy. Ligamentum flavum thickening. No significant spinal canal stenosis. Mild left and minimal right bilateral neuroforaminal stenosis. L3-L4: Moderate bilateral facet arthropathy and ligamentum flavum hypertrophy. Symmetric disc bulge. Mild spinal canal stenosis. Moderate right and mild left bilateral neuroforaminal stenosis. L4-L5: Moderate bilateral facet arthropathy. Ligamentum flavum thickening. Moderate symmetric disc bulge. Posterior annular fibrosus fissure. There is moderate effacement of the central and subarticular zones bilaterally. Moderate-severe spinal canal stenosis. Severe right greater than left bilateral neuroforaminal stenosis. Findings have progressed compared to the prior study. L5-S1: Moderate bilateral arthropathy. Disc space loss. Mild disc desiccation. Small disc bulge. There is mild effacement of the subarticular zone bilaterally. There is mild-moderate left and moderate right bilateral neuroforaminal stenosis without significant spinal canal stenosis. IMPRESSION: Lumbar spine without acute abnormalities. Multilevel, multifactorial lumbar spondylosis as described above by vertebral body level. Overall, there has been interval progression degenerative changes which are most severe at L4-5. Dictated by: Calixto Melgoza M.D. on 07/18/2024 at 9:04 Approved by: Calixto Melgoza M.D. on 07/18/2024 at 9:15
== END ==
LOC: MRI 14:30
PROVIDERS: PCP Student in an Organized Health Care Education/Training Program; Referring Provider Student in an Organized Health Care Education/Training Program; Visit Provider Student in an Organized Health Care Education/Training Program
DX: M54.31 Sciatica, right side (principal); M47.816 Spondylosis without myelopathy or radiculopathy, lumbar region; M47.817 Spondylosis without myelopathy or radiculopathy, lumbosacral region; M54.50 Low back pain, unspecified; G89.29 Other chronic pain
CPT/HCPCS: 72148

== ENCOUNTER 2024-08-11 15:14 | Emergency (ER) | payer MEDICARE, MEDICAID, SELFPAY ==
[2022-06-27 17:19] VITALS: BMI 29.0
[2024-08-11 15:26] VITALS: BP 114/61; PULSE 61; RESP 17; TEMP 36.6; O2SAT 100; BMI 23.1
[2024-08-11 16:09] VITALS: PULSE 71
[2024-08-11 16:11] VITALS: BP 118/62; PULSE 71; O2SAT 100
--- NOTE | 2024-08-11 16:28 | ED.BACK ---
HPI - Back Pain/Injury General Chief Complaint: Back Pain/Injury Stated Complaint: Rt leg px, hypotension Time Seen by Provider: 08/11/24 16:22 Source: patient History of Present Illness HPI Narrative: Patient sent here from primary care office for complaints of right lower back pain radiating posterior his right leg down to his ankle. No saddle paresthesia no bowel or bladder incontinence or retention. No foot numbness tingling or weakness. Pants removed shoe and sock removed. For exam. Patient states symptoms started 3 weeks ago. Patient does have history sciatica. Denies any prior history of back surgery. Abdominal pain. Primary care ordered patient MRI lumbar spine, completed July 17, 2024. Please see report below. [address] [address] Magnetic Resonance Report Signed Patient: Fidel Erwin MR#: [id number] : 1965 Acct:[id number] Age/Sex: 59 / M Date of Service: 07/17/24 Loc: MRI Accession Number: [id number] Procedure: MR lumbar spine wo con Ordering Provider: Luz Saravia MD P knee ROCEDURE: MR LUMBAR SPINE WO CON INDICATIONS: increased low back pain TECHNIQUE: Noncontrast sagittal T1 spin echo and T2 fast echo, sagittal STIR, and T2 fast spin echo through the lumbar spine. In cases with scoliosis, additional coronal T2 fast spin echo may be performed. COMPARISON: [facility], , MR LUMBAR SPINE WO CON, 06/16/2019, 14:21. FINDINGS: Image quality: Diagnostic Alignment and Curvature: There is normal bony alignment. Bone Marrow: Marrow is of normal overall signal. No acute vertebral body compression fractures. Spinal Cord: Conus medullaris terminates at the T12 level. Visualized cord demonstrates normal signal and size. Paraspinous Soft Tissues: No paravertebral masses. Small bilateral renal cysts measuring up to 1.5 cm on the left and 1.0 cm on the right. T12-L1: Bilateral facet arthropathy. No significant neuroforaminal or spinal canal stenosis. L1-L2: Progression of spondylitic changes with near complete fusion across the L1-2 interspace. Mild bilateral facet arthropathy. Moderate-severe left and moderate right bilateral neuroforaminal stenosis. No significant spinal canal stenosis. L2-L3: Moderate bilateral facet arthropathy. Ligamentum flavum thickening. No significant spinal canal stenosis. Mild left and minimal right bilateral neuroforaminal stenosis. L3-L4: Moderate bilateral facet arthropathy and ligamentum flavum hypertrophy. Symmetric disc bulge. Mild spinal canal stenosis. Moderate right and mild left bilateral neuroforaminal stenosis. L4-L5: Moderate bilateral facet arthropathy. Ligamentum flavum thickening. Moderate symmetric disc bulge. Posterior annular fibrosus fissure. There is moderate effacement of the central and subarticular zones bilaterally. Moderate-severe spinal canal stenosis. Severe right greater than left bilateral neuroforaminal stenosis. Findings have progressed compared to the prior study. L5-S1: Moderate bilateral arthropathy. Disc space loss. Mild disc desiccation. Small disc bulge. There is mild effacement of the subarticular zone bilaterally. There is mild-moderate left and moderate right bilateral neuroforaminal stenosis without significant spinal canal stenosis. IMPRESSION: Lumbar spine without acute abnormalities. Multilevel, multifactorial lumbar spondylosis as described above by vertebral body level. Overall, there has been interval progression degenerative changes which are most severe at L4-5. Dictated by: Calixto Melgoza M.D. on 07/18/2024 at 9:04 Approved by: Calixto Melgoza M.D. on 07/18/2024 at 9:15 Related Data Home Medications Medication Instructions Recorded Confirmed lisinopril 20 mg tablet 20 mg PO DAILY 10/06/23 07/13/24 Previous Rx's Medication Instructions Recorded albuterol sulfate 90 mcg/actuation 2 inh inhalation Q4-6H PRN 12/30/21 aerosol inhaler shortness of breath or wheezing #6.7 grams aspirin 81 mg tablet,delayed 81 mg PO DAILY #90 tabs 09/15/23 release (Adult Aspirin Regimen) atorvastatin 80 mg tablet 80 mg PO BEDTIME #90 tabs 09/15/23 bupropion HCl 150 mg 24 hr tablet, See Rx Instructions .Route 09/15/23 extended release .COMPLEX #90 tabs metoprolol succinate 25 mg capsule 25 mg PO DAILY #90 ea 09/15/23 sprinkle, ext. release 24 hr acetaminophen 500 mg tablet 1,000 mg (2 x 500 mg) PO Q6H PRN 11/14/23 (Tylenol Extra Strength) pain #20 tabs lidocaine 5 % topical patch 1 patch topical DAILY #30 ea 11/19/23 methocarbamol 500 mg tablet 500 mg PO TID #30 tabs 05/23/24 gabapentin 800 mg tablet 800 mg PO TID #90 tabs 06/16/24 hydroxyzine pamoate 25 mg capsule 25 - 50 mg (1 - 2 x 25 mg) PO 3XD 06/28/24 PRN for anxiety attack #180 caps diazepam 5 mg tablet 5 mg PO BID PRN anxiety #60 tabs 07/28/24 naproxen 500 mg tablet 500 mg PO BID PRN for pain #60 tabs 08/02/24 Allergies Allergy/AdvReac Type Severity Reaction Status Date / Time No Known Drug Allergies Allergy Verified 07/13/24 09:04 Review of Systems Review of Systems Narrative: GENERAL: Negative chills, fatigue, malaise, fever, sweats. 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 NECK: Trachea midline. CARDIOVASCULAR: Regular rate and rhythm RESPIRATORY: Clear to auscultation. Breath sounds equal bilaterally. No wheezes, rales, or rhonchi. GASTROINTESTINAL: Abdomen soft, non-tender EXTREMITIES: No gross deformities. BACK: No flank tenderness. No midline tenderness or step-off of the thoracic or lumbar spine. Limited side bends and leaning forward and back due to pain. In supine position does have right side back pain with straight leg at agrees. NEURO: AOx4. Clear speech, steady self gait no foot drop. Strong bilateral patellar reflexes and ankle flexion-extension. Light touch intact to bilateral feet and toes. Foot warm soft and pink strong pedal pulse. SKIN: Warm and dry PSYCH: Not anxious, is cooperative Initial Vital Signs Initial Vital Signs: Vital Signs Temperature 97.9 F 08/11/24 15:26 Pulse Rate 61 08/11/24 15:26 Respiratory Rate 17 08/11/24 15:26 Blood Pressure 114/61 08/11/24 15:26 Pulse Oximetry 100 08/11/24 15:26 Oxygen Delivery Method Room Air 08/11/24 15:26 Course Orders Ordered: ED Orders 08/11/24 16:29 CT lumbar spine wo con Stat Discontinued Medications Ketorolac Tromethamine (Ketorolac 30 Mg/Ml Vial) 30 mg IM NOW ONE Stop: 08/11/24 16:30 Last Admin: 08/11/24 16:39 Dose: 30 mg Documented By: BRETT Prednisone (Prednisone 20 Mg Tablet) 40 mg PO NOW ONE Stop: 08/11/24 16:30 Last Admin: 08/11/24 16:39 Dose: 40 mg Documented By: BRETT Vital Signs Vital signs: Vital Signs - 8 hr 08/11/24 15:26 08/11/24 16:09 08/11/24 16:11 Temperature 97.9 F Pulse Rate 61 71 Respiratory Rate 17 Blood Pressure 114/61 118/62 Pulse Oximetry 100 Oxygen Delivery Method Room Air 08/11/24 16:11 Temperature Pulse Rate 71 Respiratory Rate Blood Pressure Pulse Oximetry 100 Oxygen Delivery Method MDM - Back Pain/Injury MDM Narrative Medical decision making narrative: Patient sent here from primary care office for complaints of right lower back pain radiating posterior his right leg down to his ankle. No saddle paresthesia no bowel or bladder incontinence or retention. No foot numbness tingling or weakness. Pants removed shoe and sock removed. For exam. Patient states symptoms started 3 weeks ago. Patient does have history sciatica. Denies any prior history of back surgery. Abdominal pain. Primary care ordered patient MRI lumbar spine, completed July 17, 2024. Please see report below. After history and exam, no blood work indicated this time. X-ray lumbar spine will be ordered. Patient just had MRI lumbar spine July 17, 2024. Toradol and prednisone will be ordered. [facility] Medical records reviewed: MRI July 17, 2024 of lumbar spine Differential considered: Includes but not limited to sciatica cord compression cauda equina lumbar radiculopathy degenerative disc disease herniated disc diskitis Imaging studies independently reviewed: CT lumbar spine Consultations: Re-evaluations: Discussion: 5:15 p.m.. Patient has eloped from the department. He did not want to review with me, he did not give a reason why he left. CT lumbar spine reading has not been completed. Diagnosis: Sciatica Discharge Plan Departure Patient Disposition: Released, Other Clinical Impression: Sciatica Qualifiers: Laterality: right Qualified Code(s): M54.31 - Sciatica, right side Prescriptions: No Action gabapentin 800 mg tablet 800 mg PO TID Qty: 90 3RF aspirin [Adult Aspirin Regimen] 81 mg tablet,delayed release (DR/EC) 81 mg PO DAILY Qty: 90 3RF atorvastatin 80 mg tablet 80 mg PO BEDTIME Qty: 90 4RF Hold Instructions: Dimissed from Clinic 10/23/2022 metoprolol succinate 25 mg capsule,sprinkle,ER 24hr 25 mg PO DAILY Qty: 90 3RF Hold Instructions: Dimissed from Clinic 10/23/2022 bupropion HCl 150 mg tablet extended release 24 hr See Rx Instructions .ROUTE .COMPLEX Qty: 90 5RF Hold Instructions: Dimissed from Clinic 10/23/2022 Dose Instruction: TAKE 3 TABLETS BY MOUTH EVERY MORNING Rx Instructions: TAKE 1 TABLET BY MOUTH EVERY MORNING lisinopril 20 mg tablet 20 mg PO DAILY lidocaine 5 % adhesive patch,medicated 1 patch topical DAILY Qty: 30 3RF Rx Instructions: leave on most painful area for up to 12 hrs methocarbamol 500 mg tablet 500 mg PO TID Qty: 30 0RF hydroxyzine pamoate 25 mg capsule 25 - 50 mg PO 3XD PRN (Reason: for anxiety attack) Qty: 180 0RF Hold Instructions: Dimissed from Clinic 10/23/2022 diazepam 5 mg tablet 5 mg PO BID PRN (Reason: anxiety) Qty: 60 1RF naproxen 500 mg tablet 500 mg PO BID PRN (Reason: for pain) Qty: 60 2RF albuterol sulfate 90 mcg/actuation HFA aerosol inhaler 2 inh inhalation Q4-6H PRN (Reason: shortness of breath or wheezing) Qty: 6.7 3RF Hold Instructions: Dimissed from Clinic 10/23/2022 acetaminophen [Tylenol Extra Strength] 500 mg tablet 1,000 mg PO Q6H PRN (Reason: pain) Qty: 20 0RF Referrals: Luz Saravia MD [Primary Care Provider] -
--- NOTE | 2024-08-11 16:29 | DI.CT.S_ITS ---
PROCEDURE: CT LUMBAR SPINE WO CON INDICATIONS: Low back pain, right leg pain TECHNIQUE: Noncontrast 3 mm thick sections acquired from the T12 level to the sacrum. Sagittal and coronal reformats were constructed. For radiation dose reduction, the following was used: automated exposure control. COMPARISON: [facility], MR, MR LUMBAR SPINE WO CON, 07/17/2024, 15:43. FINDINGS: Image quality: Excellent. Bones: There is normal bony alignment. No acute vertebral body compression fractures. As before, there are chronic compressions of the inferior endplate of L2, as well as L3. No suspicious lytic or blastic bony lesions. No pars defects. Findings are not significantly changed from the recent MRI. There is multilevel facet arthropathy. There is canal stenosis at L4-L5, secondary to facet arthropathy and epidural lipomatosis, as much as moderate. Soft tissues: No retroperitoneal masses or hematomas. Visualized aorta is normal in caliber. IMPRESSION: Findings are unchanged from the recent prior MRI. No acute bony abnormality. Dictated by: Pavel Arauz M.D. on 08/11/2024 at 17:30 Approved by: Pavel Arauz M.D. on 08/11/2024 at 17:33
[2024-08-11] MEDS: predniSONE 20 MG TABLET 40 MG PO (16:39)
[2024-08-11] MEDS: KETOROLAC 30 MG/ML VIAL IM (16:39)
--- NOTE | 2024-08-11 17:45 | PC.NURSE ---
Patient eloped at 1700, patient did not want to stay and wait any longer, patient ambulated from department with a steady gait
== END 2024-08-11 17:00 | disposition home or self-care (01) ==
PROVIDERS: Emergency Provider Emergency Medicine; PCP Student in an Organized Health Care Education/Training Program
DX: M54.31 Sciatica, right side (principal)
CPT/HCPCS: 72131; 96372; 99283; 99284; J1885

== ENCOUNTER 2024-08-12 11:59 | Emergency (ER) | payer MEDICARE, MEDICAID, SELFPAY ==
[2022-06-27 17:19] VITALS: BMI 29.0
[2024-08-12] VITALS (11 sets, daily range): BP systolic 81–110; BP diastolic 51–57; PULSE 48–63; RESP 14–16; TEMP 36.4; O2SAT 91–100; BMI 25.8
--- NOTE | 2024-08-12 12:47 | ED_ITS ---
HPI - Back Pain/Injury General Chief Complaint: Back Pain/Injury Stated Complaint: back pain. right leg pain Time Seen by Provider: 08/12/24 12:42 Source: patient History of Present Illness HPI Narrative: Patient returns here for continued back pain. I saw him yesterday but he eloped. He states he got claustrophobic and anxious and left yesterday. States no new issues since yesterday. No no injuries. No fever chills. Blood pressure noted yesterday and today and I was going to give him fluids yesterday but he left. He states he does a lot of walking around because he does not drive and he forgets to keep himself hydrated. He was seen here in May for similar episode and required IV fluids. Related Data Home Medications Medication Instructions Recorded Confirmed lisinopril 20 mg tablet 20 mg PO DAILY 10/06/23 07/13/24 Previous Rx's Medication Instructions Recorded albuterol sulfate 90 mcg/actuation 2 inh inhalation Q4-6H PRN 12/30/21 aerosol inhaler shortness of breath or wheezing #6.7 grams aspirin 81 mg tablet,delayed 81 mg PO DAILY #90 tabs 09/15/23 release (Adult Aspirin Regimen) atorvastatin 80 mg tablet 80 mg PO BEDTIME #90 tabs 09/15/23 bupropion HCl 150 mg 24 hr tablet, See Rx Instructions .Route 09/15/23 extended release .COMPLEX #90 tabs metoprolol succinate 25 mg capsule 25 mg PO DAILY #90 ea 09/15/23 sprinkle, ext. release 24 hr acetaminophen 500 mg tablet 1,000 mg (2 x 500 mg) PO Q6H PRN 11/14/23 (Tylenol Extra Strength) pain #20 tabs lidocaine 5 % topical patch 1 patch topical DAILY #30 ea 11/19/23 methocarbamol 500 mg tablet 500 mg PO TID #30 tabs 05/23/24 gabapentin 800 mg tablet 800 mg PO TID #90 tabs 06/16/24 hydroxyzine pamoate 25 mg capsule 25 - 50 mg (1 - 2 x 25 mg) PO 3XD 06/28/24 PRN for anxiety attack #180 caps diazepam 5 mg tablet 5 mg PO BID PRN anxiety #60 tabs 07/28/24 naproxen 500 mg tablet 500 mg PO BID PRN for pain #60 tabs 08/02/24 tramadol 50 mg tablet 50 mg PO Q6H PRN pain #20 tabs 08/12/24 Allergies Allergy/AdvReac Type Severity Reaction Status Date / Time No Known Drug Allergies Allergy Verified 08/12/24 12:19 Review of Systems Review of Systems Narrative: GENERAL: Negative chills, fatigue, malaise, fever, sweats. 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 EYES: Pupils equal round ENT: Mucous membranes moist. NECK: Trachea midline. CARDIOVASCULAR: Regular rate and rhythm RESPIRATORY: Clear to auscultation. Breath sounds equal bilaterally. No wheezes, rales, or rhonchi. GASTROINTESTINAL: Abdomen soft, non-tender EXTREMITIES: No gross deformities. BACK: No flank tenderness. Patient continues to have decreased range of motion at the lower back increased pain with leaning forward and back and side bends. Does have steady slow gait in hallway without foot drop to his room from triage. Patient states there has been no changes since yesterday. NEURO: AOx4. Clear speech SKIN: Warm and dry PSYCH: Not anxious, is cooperative Initial Vital Signs Initial Vital Signs: Vital Signs Temperature 97.6 F 08/12/24 12:14 Pulse Rate 62 08/12/24 12:14 Respiratory Rate 14 08/12/24 12:14 Blood Pressure 90/54 L 08/12/24 12:14 Pulse Oximetry 99 08/12/24 12:14 Oxygen Delivery Method Room Air 08/12/24 12:14 Course Orders Ordered: Discontinued Medications Sodium Chloride (Normal Saline 0.9%) 1,000 mls @ 1,000 mls/hr IV BOLUS ONE Stop: 08/12/24 13:46 Last Infusion: 08/12/24 14:27 Dose: Infused Documented By: Admin: 08/12/24 13:13 Dose: 1,000 mls/hr Documented By: CLAUDIA Vital Signs Vital signs: Vital Signs - 8 hr 08/12/24 12:14 08/12/24 12:21 08/12/24 12:23 Temperature 97.6 F Pulse Rate 62 63 Respiratory Rate 14 16 Blood Pressure 90/54 L 94/54 L Pulse Oximetry 99 91 99 Oxygen Delivery Method Room Air Room Air 08/12/24 12:30 08/12/24 12:30 08/12/24 12:38 Temperature Pulse Rate 58 L Respiratory Rate Blood Pressure 93/51 L 85/54 L Pulse Oximetry 98 Oxygen Delivery Method 08/12/24 12:38 08/12/24 13:16 08/12/24 13:30 Temperature Pulse Rate 53 L 51 L 52 L Respiratory Rate Blood Pressure Pulse Oximetry 98 99 98 Oxygen Delivery Method 08/12/24 13:30 08/12/24 13:33 08/12/24 13:33 Temperature Pulse Rate 50 L Respiratory Rate 16 Blood Pressure 81/51 L 90/51 L Pulse Oximetry 100 Oxygen Delivery Method Room Air 08/12/24 14:00 08/12/24 14:23 08/12/24 14:24 Temperature Pulse Rate 48 L 48 L Respiratory Rate 16 Blood Pressure 98/54 L 110/57 L Pulse Oximetry 100 100 Oxygen Delivery Method Room Air 08/12/24 14:24 Temperature Pulse Rate 50 L Respiratory Rate 16 Blood Pressure Pulse Oximetry 100 Oxygen Delivery Method MDM - Back Pain/Injury MDM Narrative Medical decision making narrative: Patient returns here for continued back pain. I saw him yesterday but he guido ped. He states he got claustrophobic and anxious and left yesterday. States no new issues since yesterday. No no injuries. No fever chills. Blood pressure noted yesterday and today and I was going to give him fluids yesterday but he left. He states he does a lot of walking around because he does not drive and he forgets to keep himself hydrated. He was seen here in May for similar episode and required IV fluids. After history and exam, IV fluids will be started. Patient did not stay yesterday for IV fluids. No blood work indicated. No recent illness. Patient admits does not drink very much fluids through the day. Does a lot of walking. No repeat imaging as no injury since yesterday. [facility] Medical records reviewed: Notes from yesterday visit here Differential considered: Includes but not limited to acute on chronic back pain Re-evaluations: At time of discharge, Blood pressure improved with IV fluids. Return precautions reviewed with him. Short course of tramadol will be provided. Not toxic at discharge. He desires discharge home. Blood pressure 110/57 at time of discharge. Discussion: Appropriate for discharge home. Exam is reassuring. Blood p ressure improved with IV fluids. Return precautions reviewed. Short course of pain medication provided. Patient is not on any narcotic may medication. I will provide tramadol for him. Diagnosis: Acute on chronic back pain, hypovolemia Discharge Plan Departure Patient Disposition: Home Clinical Impression: Acute on chronic low back pain, Hypovolemia Instructions: Managing Chronic Low Back Pain, DI for Dehydration -- Adult Activity Restrictions/Additional Instructions: No driving or operating machinery when taking prescribed pain medication. Please see your family doctor next week for re-evaluation of your blood pressure and review of medications for your chronic pain. Keep well hydrated. Return if worse if any questions or concerns. Prescriptions: New tramadol 50 mg tablet 50 mg PO Q6H PRN (Reason: pain) Qty: 20 0RF No Action gabapentin 800 mg tablet 800 mg PO TID Qty: 90 3RF aspirin [Adult Aspirin Regimen] 81 mg tablet,delayed release (DR/EC) 81 mg PO DAILY Qty: 90 3RF atorvastatin 80 mg tablet 80 mg PO BEDTIME Qty: 90 4RF Hold Instructions: Dimissed from Clinic 10/23/2022 metoprolol succinate 25 mg capsule,sprinkle,ER 24hr 25 mg PO DAILY Qty: 90 3RF Hold Instructions: Dimissed from Clinic 10/23/2022 bupropion HCl 150 mg tablet extended release 24 hr See Rx Instructions .ROUTE .COMPLEX Qty: 90 5RF Hold Instructions: Dimissed from Clinic 10/23/2022 Dose Instruction: TAKE 3 TABLETS BY MOUTH EVERY MORNING Rx Instructions: TAKE 1 TABLET BY MOUTH EVERY MORNING lisinopril 20 mg tablet 20 mg PO DAILY lidocaine 5 % adhesive patch,medicated 1 patch topical DAILY Qty: 30 3RF Rx Instructions: leave on most painful area for up to 12 hrs methocarbamol 500 mg tablet 500 mg PO TID Qty: 30 0RF hydroxyzine pamoate 25 mg capsule 25 - 50 mg PO 3XD PRN (Reason: for anxiety attack) Qty: 180 0RF Hold Instructions: Dimissed from Clinic 10/23/2022 diazepam 5 mg tablet 5 mg PO BID PRN (Reason: anxiety) Qty: 60 1RF naproxen 500 mg tablet 500 mg PO BID PRN (Reason: for pain) Qty: 60 2RF albuterol sulfate 90 mcg/actuation HFA aerosol inhaler 2 inh inhalation Q4-6H PRN (Reason: shortness of breath or wheezing) Qty: 6.7 3RF Hold Instructions: Dimissed from Clinic 10/23/2022 acetaminophen [Tylenol Extra Strength] 500 mg tablet 1,000 mg PO Q6H PRN (Reason: pain) Qty: 20 0RF Referrals: Lzu Saravia MD [Primary Care Provider] - Stand Alone Forms: Patient Portal/API/Survey
[2024-08-12] MEDS: SODIUM CHLORIDE 0.9% 1,000 ML 1000 ML IV (13:13)
== END 2024-08-12 14:28 | disposition home or self-care (01) ==
PROVIDERS: Emergency Provider Emergency Medicine; PCP Student in an Organized Health Care Education/Training Program
DX: M54.50 Low back pain, unspecified (principal); E86.1 Hypovolemia
CPT/HCPCS: 96360; 99283; 99284

== ENCOUNTER 2024-09-02 11:54 | Emergency (ER) | payer OTHER, MEDICAID, SELFPAY ==
[2024-08-16 12:07] VITALS: BMI 29.0
[2024-09-02 12:13] VITALS: BP 108/70; PULSE 94; RESP 16; TEMP 37.2; O2SAT 98; BMI 26.6
--- NOTE | 2024-09-02 13:08 | ED.BACK ---
HPI - Back Pain/Injury <Cristy Phelan PA-C - Last Filed: 09/02/24 14:34> General Chief Complaint: Back Pain/Injury Stated Complaint: R Leg Pain Time Seen by Provider: 09/02/24 12:50 Source: patient History of Present Illness HPI Narrative: Mr. Erwin is a pleasant 59-year-old male with a past medical history of chronic pain, bipolar disorder, HTN, HLD, CABG who presents to the emergency department for right leg pain, right-sided low back pain and left-sided neck pain x1 year. Patient states he has been suffering with chronic pain and is on hydrocodone 5 mg, states he took the pain medication this morning but it did not help as much as it usually does. Patient describes pain that starts in the right hip/back region and spreads down the entire right leg, he also states he started noticing some mild left-sided neck pain as well. He denies numbness, tingling, weakness, bowel or bladder incontinence, saddle anesthesia, dysuria, hematuria, fevers, chills, chest pain, shortness of breath, abdominal pain. He is requesting oxycodone at this time. Related Data Home Medications Medication Instructions Recorded Confirmed lisinopril 20 mg tablet 20 mg PO DAILY 10/06/23 07/13/24 Previous Rx's Medication Instructions Recorded albuterol sulfate 90 mcg/actuation 2 inh inhalation Q4-6H PRN 12/30/21 aerosol inhaler shortness of breath or wheezing #6.7 grams atorvastatin 80 mg tablet 80 mg PO BEDTIME #90 tabs 09/15/23 bupropion HCl 150 mg 24 hr tablet, See Rx Instructions .Route 09/15/23 extended release .COMPLEX #90 tabs acetaminophen 500 mg tablet 1,000 mg (2 x 500 mg) PO Q6H PRN 11/14/23 (Tylenol Extra Strength) pain #20 tabs lidocaine 5 % topical patch 1 patch topical DAILY #30 ea 11/19/23 gabapentin 800 mg tablet 800 mg PO TID #90 tabs 06/16/24 hydroxyzine pamoate 25 mg capsule 25 - 50 mg (1 - 2 x 25 mg) PO 3XD 06/28/24 PRN for anxiety attack #180 caps diazepam 5 mg tablet 5 mg PO BID PRN anxiety #60 tabs 07/28/24 naproxen 500 mg tablet 500 mg PO BID PRN for pain #60 tabs 08/02/24 hydrocodone 5 mg-acetaminophen 325 1 tab PO BID PRN pain #30 tabs 08/16/24 mg tablet methocarbamol 500 mg tablet 500 mg PO TID #90 tabs 08/16/24 naloxone 4 mg/actuation nasal 4 mg intranasal Q2M PRN opioid 08/16/24 spray (Narcan) overdose #2 ea aspirin 81 mg tablet,delayed 81 mg PO DAILY #90 tabs 08/24/24 release (Adult Aspirin Regimen) metoprolol succinate 25 mg 25 mg PO DAILY #90 tabs 08/24/24 tablet,extended release 24 hr ketorolac 10 mg tablet 10 mg PO Q8H PRN pain #14 tabs 09/02/24 prednisone 20 mg tablet 40 mg (2 x 20 mg) PO DAILY 5 days 09/02/24 #10 tabs Allergies Allergy/AdvReac Type Severity Reaction Status Date / Time No Known Drug Allergies Allergy Verified 09/02/24 12:13 Review of Systems <Cristy Phelan PA-C - Last Filed: 09/02/24 14:34> Review of Systems ROS Unobtainable: All systems reviewed & are unremarkable except as noted in HPI and below Patient History <Cristy Phelan PA-C - Last Filed: 09/02/24 14:34> Medical History Tobacco use Bronchitis Chronic bronchitis Hyperlipidemia 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 Well-developed patient, in no acute distress. HEAD: Atraumatic. Normocephalic. EYES: Extraocular motions intact. No scleral icterus. No injection or drainage. NECK: Trachea midline. Cervical ROM intact. No midline tenderness. CARDIOVASCULAR: Regular rate and rhythm. RESPIRATORY: ?Nonlabored respirations. ?Speaking in clear, full sentences. ?Clear to auscultation. Breath sounds equal bilaterally. No wheezes, rales, or rhonchi. ? EXTREMITIES: Palpable DP and PT pulses bilaterally, brisk capillary refill in the toes, patient does have some mild erythema on the distal aspect of all toes. No calf tenderness or swelling bilaterally. BACK: No midline spinal tenderness or reproducible pain however patient does have subjective pain in the right lumbar paraspinal region that radiates down the leg and the left paracervical region. NEURO: AOx3. ?Clear speech but somehwat slow to respond. ?Moves all 4 extremities appropriately. Sensation intact to light touch on the bilateral lower and upper extremities. SKIN: No rash or erythema of visible areas Initial Vital Signs Initial Vital Signs: Vital Signs Temperature 98.9 F 09/02/24 12:13 Pulse Rate 94 H 09/02/24 12:13 Respiratory Rate 16 09/02/24 12:13 Blood Pressure 108/70 09/02/24 12:13 Pulse Oximetry 98 09/02/24 12:13 Oxygen Delivery Method Room Air 09/02/24 12:13 <Rody Fraire DO - Last Filed: 09/02/24 18:20> Initial Vital Signs Initial Vital Signs: Vital Signs Temperature 98.9 F 09/02/24 12:13 Pulse Rate 94 H 09/02/24 12:13 Respiratory Rate 16 09/02/24 12:13 Blood Pressure 108/70 09/02/24 12:13 Pulse Oximetry 98 09/02/24 12:13 Oxygen Delivery Method Room Air 09/02/24 12:13 Course <Cristy Phelan PA-C - Last Filed: 09/02/24 14:34> Orders Ordered: Discontinued Medications Ketorolac Tromethamine (Ketorolac 30 Mg/Ml Vial) 30 mg IM NOW ONE Stop: 09/02/24 13:34 Last Admin: 09/02/24 13:44 Dose: 30 mg Documented By: SHERMAN Prednisone (Prednisone 20 Mg Tablet) 40 mg PO NOW ONE Stop: 09/02/24 13:34 Last Admin: 09/02/24 13:44 Dose: 40 mg Documented By: SHERMAN Vital Signs Vital signs: Vital Signs - 8 hr 09/02/24 12:13 09/02/24 14:18 Temperature 98.9 F Pulse Rate 94 H 60 Respiratory Rate 16 16 Blood Pressure 108/70 114/56 L Pulse Oximetry 98 96 Oxygen Delivery Method Room Air Room Air <Rody Fraire DO - Last Filed: 09/02/24 18:20> Orders Ordered: Discontinued Medications Ketorolac Tromethamine (Ketorolac 30 Mg/Ml Vial) 30 mg IM NOW ONE Stop: 09/02/24 13:34 Last Admin: 09/02/24 13:44 Dose: 30 mg Documented By: SHERMAN Prednisone (Prednisone 20 Mg Tablet) 40 mg PO NOW ONE Stop: 09/02/24 13:34 Last Admin: 09/02/24 13:44 Dose: 40 mg Documented By: SHERMAN Vital Signs Vital signs: Vital Signs - 8 hr 09/02/24 12:13 09/02/24 14:18 Temperature 98.9 F Pulse Rate 94 H 60 Respiratory Rate 16 16 Blood Pressure 108/70 114/56 L Pulse Oximetry 98 96 Oxygen Delivery Method Room Air Room Air MDM - Back Pain/Injury <Cristy Phelan PA-C - Last Filed: 09/02/24 14:34> Medical Records Attestation: I reviewed the patient's medical records. Medical records narrative: Reviewed prior ED notes, this is the 5th visit this year. Reviewed lumbar spine CT from 08/11/2024, lumbar spine MRI from 07/17/2024, cervical CT from 01/26/2024 [facility] Narrative Medical decision making narrative: 59-year-old male with a past medical history of chronic pain, bipolar disorder, HTN, HLD, CABG who presents to the emergency department for right leg pain, right-sided low back pain and left-sided neck pain x1 year. Differential diagnosis includes but is not limited to lumbar radiculopathy, lumbar degenerative disc disease, cervical degenerative disc disease, muscle spasm, strain, sprain, etc. On exam the patient is in no acute distress, nontoxic-appearing, all vital signs within normal limits. He is having acute exacerbation of his chronic pain, he does currently have a pain management agreement and is on hydrocodone 5 mg however this is not resolving his current pain. He has having no bowel or bladder incontinence, no saddle anesthesia, no direct trauma or falls, no open wounds, no numbness tingling or weakness on exam. He has had imaging of his lumbar spine and cervical spine within the last year with a well documented history of degenerative disc disease, I do suspect this is likely the cause of his pain for the last year we will treat current exacerbation with Toradol and prednisone, we will send patient 5 day course of prednisone to complete at home as well. Discussed with the patient the importance of multimodal pain management including his normal hydrocodone in addition to ibuprofen or naproxen, Tylenol, prednisone, lidocaine patches, heat therapy, gentle stretching. Advised prompt follow up with PCP and also discussed further follow up with ortho spine for further management. Patient verbalized understanding of this plan and is agreeable, we discussed strict ED return precautions, he is stable for discharge home. As the patient was being discharged he requested Toradol p.o. for home. I am agreeable to this but discussed that he can not take Toradol with any other NSAIDs, it is roughly in the gut and he should not take it together with prednisone, should eat. He verbalized understanding and is happy with the plan. Discharge Plan Departure Patient Disposition: Home Clinical Impression: Acute exacerbation of chronic low back pain Instructions: DI for Low Back Pain Activity Restrictions/Additional Instructions: Dear Mr. Erwin, Today you were evaluated for low back pain, right leg pain and left neck pain. I would like you to continue with your normal pain management regimen of hydrocodone in addition to Tylenol, topical lidocaine patches, and the prescription for steroids and toradol. DO NOT take Toradol with other NSAIDs such as ibuprofen or naproxen. Do not take Toradol and prednisone together, space them out throughout the day and take both of these medications with food. In the emergency room today you received your 1st dose of steroids in addition to an injection of anti-inflammatory pain medications. It is important to rest, perform gentle stretches, apply heat therapy to areas of pain, and follow up with your primary care doctor for further evaluation and so adjustments can be made to your chronic pain medication regimen. Please follow up with your primary care doctor within the next 2-3 days for ER follow-up. (If you do not have a PCP you can call [phone]. ?to schedule an appointment with an [facility] Primary Care Provider) IF YOU DEVELOP ANY NEW OR WORSENING SYMPTOMS, RETURN TO THE ER! Please read the attached instructions, they highlight more specific treatments and interventions for you at home. Thank you for letting me participate in your care, Cristy Phelan PA-C Prescriptions: New prednisone 20 mg tablet 40 mg PO DAILY 5 Days Qty: 10 0RF ketorolac 10 mg tablet 10 mg PO Q8H PRN (Reason: pain) Qty: 14 0RF Rx Instructions: maximum total duration of 5 days from all oral, intranasal, or parenteral formulations No Action gabapentin 800 mg tablet 800 mg PO TID Qty: 90 3RF methocarbamol 500 mg tablet 500 mg PO TID Qty: 90 3RF hydrocodone-acetaminophen 5-325 mg tablet 1 tab PO BID PRN (Reason: pain) Qty: 30 0RF naloxone [Narcan] 4 mg/actuation spray,non-aerosol 4 mg intranasal Q2M PRN (Reason: opioid overdose) Qty: 2 0RF Rx Instructions: spray 1 dose into ONE nostril; alternate nostrils w each dose until help arrives atorvastatin 80 mg tablet 80 mg PO BEDTIME Qty: 90 4RF Hold Instructions: Dimissed from Clinic 10/23/2022 bupropion HCl 150 mg tablet extended release 24 hr See Rx Instructions .ROUTE .COMPLEX Qty: 90 5RF Hold Instructions: Dimissed from Clinic 10/23/2022 Dose Instruction: TAKE 3 TABLETS BY MOUTH EVERY MORNING Rx Instructions: TAKE 1 TABLET BY MOUTH EVERY MORNING lisinopril 20 mg tablet 20 mg PO DAILY lidocaine 5 % adhesive patch,medicated 1 patch topical DAILY Qty: 30 3RF Rx Instructions: leave on most painful area for up to 12 hrs hydroxyzine pamoate 25 mg capsule 25 - 50 mg PO 3XD PRN (Reason: for anxiety attack) Qty: 180 0RF Hold Instructions: Dimissed from Clinic 10/23/2022 diazepam 5 mg tablet 5 mg PO BID PRN (Reason: anxiety) Qty: 60 1RF naproxen 500 mg tablet 500 mg PO BID PRN (Reason: for pain) Qty: 60 2RF aspirin [Adult Aspirin Regimen] 81 mg tablet,delayed release (DR/EC) 81 mg PO DAILY Qty: 90 3RF metoprolol succinate 25 mg tablet extended release 24 hr 25 mg PO DAILY Qty: 90 2RF Hold Instructions: Dimissed from Clinic 10/23/2022 albuterol sulfate 90 mcg/actuation HFA aerosol inhaler 2 inh inhalation Q4-6H PRN (Reason: shortness of breath or wheezing) Qty: 6.7 3RF Hold Instructions: Dimissed from Clinic 10/23/2022 acetaminophen [Tylenol Extra Strength] 500 mg tablet 1,000 mg PO Q6H PRN (Reason: pain) Qty: 20 0RF Referrals: Luz Saravia MD [Primary Care Provider] - Stand Alone Forms: Patient Portal/API/Survey ED Sign-out <Rody Fraire DO - Last Filed: 09/02/24 18:20> Cosign ED Attending Cosignature Attestation: I was immediately available in the department for consultation.
[2024-09-02] MEDS: KETOROLAC 30 MG/ML VIAL IM (13:44)
[2024-09-02] MEDS: predniSONE 20 MG TABLET 40 MG PO (13:44)
[2024-09-02 14:18] VITALS: BP 114/56; PULSE 60; RESP 16; O2SAT 96
== END 2024-09-02 14:28 | disposition home or self-care (01) ==
PROVIDERS: Emergency Provider Physician Assistant; PCP Student in an Organized Health Care Education/Training Program
DX: M54.59 Other low back pain (principal); G89.29 Other chronic pain
CPT/HCPCS: 96372; 99283; 99284; J1885

== ENCOUNTER 2024-09-06 09:38 | Emergency (ER) | payer OTHER, MEDICAID, SELFPAY ==
[2024-08-16 12:07] VITALS: BMI 29.0
[2024-09-06 09:40] VITALS: BP 149/67; PULSE 87; RESP 14; TEMP 36.8; O2SAT 99; BMI 26.1
== END 2024-09-06 11:09 | disposition left against medical advice (07) ==
PROVIDERS: Emergency Provider Emergency Medicine; PCP Student in an Organized Health Care Education/Training Program
CPT/HCPCS: 99281

== ENCOUNTER 2024-09-09 17:37 | Emergency (ER) | payer MEDICARE, MEDICAID, SELFPAY ==
[2024-08-16 12:07] VITALS: BMI 29.0
[2024-09-09 17:48] VITALS: BP 184/86; PULSE 110; RESP 20; TEMP 37; O2SAT 98; BMI 25.8
--- NOTE | 2024-09-09 17:54 | DI.RAD.S_ITS ---
PROCEDURE: XR CHEST 1V INDICATIONS: Chest Pain TECHNIQUE: One view of the chest was acquired. COMPARISON: [facility], CR, XR CHEST 1V, 11/14/2023, 10:37. FINDINGS: Surgical changes and devices: Remote valvuloplasty and CABG. Lungs and pleura: Lungs are clear. No pleural effusions or pneumothorax. Mediastinum: Mediastinal contours appear normal. Heart size is normal. Bones and chest wall: No suspicious bony lesions. Overlying soft tissues appear unremarkable. IMPRESSION: No acute cardiopulmonary abnormality is seen. Dictated by: Pavel Arauz M.D. on 09/09/2024 at 19:10 Approved by: Pavel Arauz M.D. on 09/09/2024 at 19:10
--- NOTE | 2024-09-09 17:59 | EKG_ITS ---
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
[2024-09-09 18:27] LABS: Add Manual Diff / Slide Review NO; Basophils Absolute Auto 100 /uL (0-100); Basophils Percent Auto 0.8 % (0-2); Eosinophils Absolute Auto 400 /uL (0-450); Eosinophils Percent Auto 5.2 % (2-4); Hematocrit 40.8 % (41-53); Hemoglobin 13.9 g/dL (13.5-17.5); Lymphocytes Absolute Auto 2200 /uL (1100-4500); Mean Corpuscular HGB Conc 34.1 % (30-36); Mean Corpuscular Hemoglobin 31.7 PG (26-34); Monocytes Absolute Auto 500 /uL (0-900); Monocytes Percent Auto 6.6 % (3-14); Neutrophils Absolute Auto 4700 /uL (1500-7000); Neutrophils Percent Auto 59.4 % (50-75); Platelet Count 276 X10^3/uL (150-400); Red Blood Cell Count 4.39 X10^6/uL (4.5-5.9); Red Cell Distribution Width 13.3 % (11.6-14.8)
[2024-09-09 18:31] LABS: Prothrombin Time 11.1 SECONDS (9.4-12.5)
[2024-09-09 18:34] LABS: PTT Partial Thromboplastin Tim 31 SECONDS (25.1-36.5)
[2024-09-09 19:01] LABS: Alanine Aminotransferase 35 IU/L (<50); Albumin 4.6 g/dL (3.5-5.0); Albumin Globulin Ratio 1.9 (1.0-2.8); Alkaline Phosphatase 52 U/L (38-126); Aspartate Aminotransferase 27 IU/L (17-59); BUN Creatinine Ratio 27.5 (6-22); Bilirubin Total 0.8 mg/dL (0.2-1.3); Blood Urea Nitrogen 28 mg/dL (9-20); Calcium 9.4 mg/dL (8.4-10.2); Carbon Dioxide 23 mmol/L (22-32); Chloride 103 mmol/L (98-107); Creatine Kinase 67 U/L (55-170); Estimated Glomerular Filt Rate > 60 mL/min (>60); Globulin 2.4 g/dL (1.7-4.1); Glucose 88 mg/dL (70-99); HEMOLYSIS < 15 (0-50); Lipase 107 U/L (23-300); Magnesium 2.1 mg/dL (1.6-2.3); Potassium 3.3 mmol/L (3.4-5.1); Sodium 136 mmol/L (137-145)
[2024-09-09 19:13] LABS: NT-proBNP (BNP-Adult 18+) 333 pg/mL (<125); Troponin I 0.041 ng/mL (0.01-0.034)
== END 2024-09-09 20:23 | disposition left against medical advice (07) ==
PROVIDERS: Emergency Medicine; Emergency Provider Emergency Medicine; PCP Student in an Organized Health Care Education/Training Program
DX: R07.9 Chest pain, unspecified (principal); R51.9 Headache, unspecified
CPT/HCPCS: 36415; 71045; 80053; 82550; 83690; 83735; 83880; 84484; 85025; 85610; 85730; 93005; 99283

== ENCOUNTER 2024-09-17 10:14 | Emergency (ER) | payer OTHER, MEDICAID, SELFPAY ==
[2024-08-16 12:07] VITALS: BMI 29.0
[2024-09-17 10:44] VITALS: BP 137/70; PULSE 99; RESP 15; TEMP 36.6; O2SAT 97; BMI 25.8
[2024-09-17] MEDS: ACETAMINOPHEN 325 MG TABLET 975 MG PO (10:52)
--- NOTE | 2024-09-17 12:05 | PC.NURSE ---
Patient exits room (Fast Track S2) stating how much longer is it going to be, I've been waiting an hour, I have to leave. This RN explained process of seeing patient's in order of acuity and that he was next to be seen but patient did not return to room and walked independently out of fast track area and left department. Patient had steady gait noted and no belongings were left in room. Patient removed from tracker as a LWBS/VDC.
--- NOTE | 2024-09-17 12:13 | ED.BACK ---
HPI - Back Pain/Injury General Chief Complaint: Back Pain/Injury Stated Complaint: Back Pain, R Leg Pain Time Seen by Provider: 09/17/24 11:09 Source: patient History of Present Illness HPI Narrative: Patient left without being seen Related Data Home Medications Medication Instructions Recorded Confirmed lisinopril 20 mg tablet 20 mg PO DAILY 10/06/23 09/09/24 Previous Rx's Medication Instructions Recorded albuterol sulfate 90 mcg/actuation 2 inh inhalation Q4-6H PRN 12/30/21 aerosol inhaler shortness of breath or wheezing #6.7 grams atorvastatin 80 mg tablet 80 mg PO BEDTIME #90 tabs 09/15/23 bupropion HCl 150 mg 24 hr tablet, See Rx Instructions .Route 09/15/23 extended release .COMPLEX #90 tabs acetaminophen 500 mg tablet 1,000 mg (2 x 500 mg) PO Q6H PRN 11/14/23 (Tylenol Extra Strength) pain #20 tabs lidocaine 5 % topical patch 1 patch topical DAILY #30 ea 11/19/23 gabapentin 800 mg tablet 800 mg PO TID #90 tabs 06/16/24 diazepam 5 mg tablet 5 mg PO BID PRN anxiety #60 tabs 07/28/24 naproxen 500 mg tablet 500 mg PO BID PRN for pain #60 tabs 08/02/24 methocarbamol 500 mg tablet 500 mg PO TID #90 tabs 08/16/24 naloxone 4 mg/actuation nasal 4 mg intranasal Q2M PRN opioid 08/16/24 spray (Narcan) overdose #2 ea aspirin 81 mg tablet,delayed 81 mg PO DAILY #90 tabs 08/24/24 release (Adult Aspirin Regimen) metoprolol succinate 25 mg 25 mg PO DAILY #90 tabs 08/24/24 tablet,extended release 24 hr ketorolac 10 mg tablet 10 mg PO Q8H PRN pain #14 tabs 09/02/24 buspirone 5 mg tablet 5 mg PO BID #60 tabs 09/09/24 hydrocodone 5 mg-acetaminophen 325 1 tab PO BID PRN pain #45 tabs 09/09/24 mg tablet hydroxyzine pamoate 25 mg capsule 25 - 50 mg (1 - 2 x 25 mg) PO 3XD 09/09/24 PRN for anxiety attack #180 caps Allergies Allergy/AdvReac Type Severity Reaction Status Date / Time No Known Drug Allergies Allergy Verified 09/17/24 10:49 Patient History Medical History Tobacco use Bronchitis Chronic bronchitis Hyperlipidemia 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) Coronary artery disease Discitis Anxiety Acute osteomyelitis of lumbar spine HTN (hypertension) Surgical History H/O valvuloplasty S/P CABG x 4 Family History Grandfather Heart attack Family/Other Heart attack Social History household members: family Smoking Status: Current every day smoker alcohol intake: former Smoking Status: Current every day smoker tobacco type: cigarettes alcohol intake frequency: other Exam Initial Vital Signs Initial Vital Signs: Vital Signs Temperature 97.9 F 09/17/24 10:44 Pulse Rate 99 H 09/17/24 10:44 Respiratory Rate 15 09/17/24 10:44 Blood Pressure 137/70 09/17/24 10:44 Pulse Oximetry 97 09/17/24 10:44 Oxygen Delivery Method Room Air 09/17/24 10:44 Course Orders Ordered: Discontinued Medications Acetaminophen (Acetaminophen 325 Mg Tablet) 975 mg PO NOW ONE Stop: 09/17/24 10:51 Last Admin: 09/17/24 10:52 Dose: 975 mg Documented By: GUY Vital Signs Vital signs: Vital Signs - 8 hr 09/17/24 10:44 Temperature 97.9 F Pulse Rate 99 H Respiratory Rate 15 Blood Pressure 137/70 Pulse Oximetry 97 Oxygen Delivery Method Room Air MDM - Back Pain/Injury MDM Narrative Medical decision making narrative: patient left without being seen. He was ambulating without assistance, comfortably watching TV and exam room, was given Tylenol. I was just about to head to his exam room when he advised us he was leaving without being seen. Discharge Plan Departure Patient Disposition: Left Without Being Seen Clinical Impression: Low back pain, Patient left before evaluation by physician Prescriptions: No Action gabapentin 800 mg tablet 800 mg PO TID Qty: 90 3RF methocarbamol 500 mg tablet 500 mg PO TID Qty: 90 3RF naloxone [Narcan] 4 mg/actuation spray,non-aerosol 4 mg intranasal Q2M PRN (Reason: opioid overdose) Qty: 2 0RF Rx Instructions: spray 1 dose into ONE nostril; alternate nostrils w each dose until help arrives hydrocodone-acetaminophen 5-325 mg tablet 1 tab PO BID PRN (Reason: pain) Qty: 45 0RF buspirone 5 mg tablet 5 mg PO BID Qty: 60 0RF atorvastatin 80 mg tablet 80 mg PO BEDTIME Qty: 90 4RF Hold Instructions: Dimissed from Clinic 10/23/2022 bupropion HCl 150 mg tablet extended release 24 hr See Rx Instructions .ROUTE .COMPLEX Qty: 90 5RF Hold Instructions: Dimissed from Clinic 10/23/2022 Dose Instruction: TAKE 3 TABLETS BY MOUTH EVERY MORNING Rx Instructions: TAKE 1 TABLET BY MOUTH EVERY MORNING lisinopril 20 mg tablet 20 mg PO DAILY lidocaine 5 % adhesive patch,medicated 1 patch topical DAILY Qty: 30 3RF Rx Instructions: leave on most painful area for up to 12 hrs diazepam 5 mg tablet 5 mg PO BID PRN (Reason: anxiety) Qty: 60 1RF naproxen 500 mg tablet 500 mg PO BID PRN (Reason: for pain) Qty: 60 2RF aspirin [Adult Aspirin Regimen] 81 mg tablet,delayed release (DR/EC) 81 mg PO DAILY Qty: 90 3RF metoprolol succinate 25 mg tablet extended release 24 hr 25 mg PO DAILY Qty: 90 2RF Hold Instructions: Dimissed from Clinic 10/23/2022 hydroxyzine pamoate 25 mg capsule 25 - 50 mg PO 3XD PRN (Reason: for anxiety attack) Qty: 180 0RF Hold Instructions: Dimissed from Clinic 10/23/2022 albuterol sulfate 90 mcg/actuation HFA aerosol inhaler 2 inh inhalation Q4-6H PRN (Reason: shortness of breath or wheezing) Qty: 6.7 3RF Hold Instructions: Dimissed from Clinic 10/23/2022 ketorolac 10 mg tablet 10 mg PO Q8H PRN (Reason: pain) Qty: 14 0RF Rx Instructions: maximum total duration of 5 days from all oral, intranasal, or parenteral formulations acetaminophen [Tylenol Extra Strength] 500 mg tablet 1,000 mg PO Q6H PRN (Reason: pain) Qty: 20 0RF
== END 2024-09-17 12:05 | disposition left against medical advice (07) ==
PROVIDERS: Emergency Provider Physician Assistant; PCP Student in an Organized Health Care Education/Training Program
DX: M54.50 Low back pain, unspecified (principal)
CPT/HCPCS: 99283

== ENCOUNTER 2024-09-30 07:53 | Emergency (ER) | payer MEDICARE, MEDICAID, SELFPAY ==
[2024-08-16 12:07] VITALS: BMI 29.0
[2024-09-30] VITALS (12 sets, daily range): BP systolic 103–155; BP diastolic 55–71; PULSE 50–67; RESP 16; TEMP 36.8–36.9; O2SAT 94–99
--- NOTE | 2024-09-30 09:25 | ED.BACK ---
HPI - Back Pain/Injury General Chief Complaint: Back Pain/Injury Stated Complaint: Bilateral leg pain, Lower back pain x2 months Time Seen by Provider: 09/30/24 09:25 Source: patient, RN notes reviewed and old records reviewed Mode of arrival: Ambulatory Limitations: no limitations History of Present Illness HPI Narrative: 59-year-old male complaint of lower back pain history of L4-L5 compression fracture states increased pain bilateral lower extremities. Patient states no recent trauma or injuries states he was not arrested in May 21 of the officer sat on his back he does not have the replace report with him. He did have imaging after that in July which showed some chronic changes but no acute changes. Patient states he was had some increased pain down both legs, has chronic paresthesias particularly in the right. Patient has been ambulating he ambulated to the hospital. He states no saddle anesthesia. No bowel or bladder incontinence. States he was had waxing and waning symptoms in the past. He has been taking acetaminophen at home which he states has not been helpful. He denies any other new changes. States he was had a shot of Toradol in the past which was helpful. No reported drug allergies. Related Data Home Medications ?Medication ?Instructions ?Recorded ?Confirmed lisinopril 20 mg tablet 20 mg PO DAILY 10/06/23 09/26/24 Previous Rx's ?Medication ?Instructions ?Recorded albuterol sulfate 90 mcg/actuation 2 inh inhalation Q4-6H PRN 12/30/21 aerosol inhaler shortness of breath or wheezing Held on 04/27/23. #6.7 grams Instructions: Dimissed from Clinic 10/23/2022 atorvastatin 80 mg tablet 80 mg PO BEDTIME #90 tabs 09/15/23 bupropion HCl 150 mg 24 hr tablet, See Rx Instructions .Route 09/15/23 extended release .COMPLEX #90 tabs acetaminophen 500 mg tablet 1,000 mg (2 x 500 mg) PO Q6H PRN 11/14/23 (Tylenol Extra Strength) pain #20 tabs lidocaine 5 % topical patch 1 patch topical DAILY #30 ea 11/19/23 gabapentin 800 mg tablet 800 mg PO TID #90 tabs 06/16/24 naproxen 500 mg tablet 500 mg PO BID PRN for pain #60 tabs 08/02/24 naloxone 4 mg/actuation nasal 4 mg intranasal Q2M PRN opioid 08/16/24 spray (Narcan) overdose #2 ea aspirin 81 mg tablet,delayed 81 mg PO DAILY #90 tabs 08/24/24 release (Adult Aspirin Regimen) metoprolol succinate 25 mg 25 mg PO DAILY #90 tabs 08/24/24 tablet,extended release 24 hr ketorolac 10 mg tablet 10 mg PO Q8H PRN pain #14 tabs 09/02/24 hydroxyzine pamoate 25 mg capsule 25 - 50 mg (1 - 2 x 25 mg) PO 3XD 09/09/24 PRN for anxiety attack #180 caps buspirone 10 mg tablet 10 mg PO BID #60 tabs 09/26/24 diazepam 5 mg tablet 5 mg PO BID PRN anxiety #60 tabs 09/26/24 hydrocodone 5 mg-acetaminophen 325 1 tab PO BID PRN pain #45 tabs 09/26/24 mg tablet methocarbamol 500 mg tablet 500 mg PO TID #90 tabs 09/26/24 meloxicam 7.5 mg tablet 7.5 mg PO BID PRN pain #20 tabs 09/30/24 Allergies Allergy/AdvReac Type Severity Reaction Status Date / Time No Known Drug Allergies Allergy Verified 09/30/24 08:25 Review of Systems Review of Systems ROS Unobtainable: All systems reviewed & are unremarkable except as noted in HPI and below Patient History Medical History Tobacco use Bronchitis Chronic bronchitis Hyperlipidemia 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) Coronary artery disease Discitis Anxiety Acute osteomyelitis of lumbar spine HTN (hypertension) Surgical History H/O valvuloplasty S/P CABG x 4 Family History Grandfather Heart attack Family/Other Heart attack Social History household members: family Smoking Status: Current every day smoker alcohol intake: former Smoking Status: Current every day smoker tobacco type: cigarettes alcohol intake frequency: other Exam Narrative Exam Narrative: GENERAL: Alert and oriented x three, male in mild distress HEENT: Head normocephalic, atraumatic, EOMI, pupils reactive, face symmetric, moist mucous membranes NECK: Supple, full range of motion CARDIOVASCULAR: Regular rate and rhythm without murmurs, rubs or gallops. RESPIRATORY: Breath sounds equal bilaterally, no wheezes rales or rhonchi. ABDOMEN: Soft, nontender. Normoactive bowel sounds all 4 quadrants. No guarding or rebound, rigidity, no mass : No CVA tenderness BACK: No cervical, thoracic or lumbar vertebral point tenderness. Patient has normal range of motion. Patient's gait is normal. No saddle anesthesia. Muscle strength is 5/5 in lower extremities, DTRs are 2/4 and lower extremities. Dorsalis pedis and tibialis pulses are 2+ and lower extremities. Sensation is intact in the lower extremities. EXTREMITIES: Normal range of motion, no clubbing or edema. Neurovascularly intact NEUROLOGICAL: Cranial nerves II through XII grossly intact. Moving all extremities SKIN: Warm, dry, no petechiae, no rashes or lesions. Initial Vital Signs Initial Vital Signs: Vital Signs Pulse Rate 60 09/30/24 08:24 Pulse Oximetry 98 09/30/24 08:24 Course Orders Ordered: Discontinued Medications Ketorolac Tromethamine (Ketorolac 30 Mg/Ml Vial) 30 mg IM NOW ONE Stop: 09/30/24 09:39 Last Admin: 09/30/24 10:05 Dose: 30 mg Documented By: LM Vital Signs Vital signs: Vital Signs - 8 hr 09/30/24 08:24 09/30/24 08:25 09/30/24 08:30 Temperature 98.5 F Pulse Rate 60 67 55 L Respiratory Rate 16 Blood Pressure 155/71 H Pulse Oximetry 98 99 94 Oxygen Delivery Method Room Air 09/30/24 08:31 09/30/24 08:31 09/30/24 09:00 Temperature Pulse Rate 55 L 58 L Respiratory Rate Blood Pressure 114/56 L Pulse Oximetry 98 97 Oxygen Delivery Method 09/30/24 09:01 09/30/24 09:01 09/30/24 09:30 Temperature Pulse Rate 56 L 57 L Respiratory Rate Blood Pressure 103/55 L Pulse Oximetry 97 96 Oxygen Delivery Method 09/30/24 09:31 09/30/24 09:31 09/30/24 09:53 Temperature Pulse Rate 55 L 56 L Respiratory Rate Blood Pressure 121/58 L Pulse Oximetry 96 98 Oxygen Delivery Method 09/30/24 09:53 09/30/24 09:54 09/30/24 09:54 Temperature Pulse Rate 56 L Respiratory Rate Blood Pressure 151/69 H 140/63 Pulse Oximetry 99 Oxygen Delivery Method 09/30/24 10:00 Temperature Pulse Rate 52 L Respiratory Rate Blood Pressure Pulse Oximetry 97 Oxygen Delivery Method MDM - Back Pain/Injury MDM Narrative Medical decision making narrative: L-spine CT shows chronic compression inferior endplate L2 as well as L3, multilevel facet arthropathy canal stenosis L4-5 secondary to facet arthropathy and epidural lipomatosis, as such as moderate. That has from 08/11/2024. Patient does not have any red flag symptoms currently necessitating repeat imaging. Patient has not had any new trauma since his CT imaging. Patient is felt Toradol helpful in the past. We will give a short course of meloxicam. Patient was follow up with PMR next month with Dr. Trevizo's has follow up on the of next month with the his primary care. Discussed return precautions all questions answered. Discharge Plan Departure Patient Disposition: Home Clinical Impression: Lumbar radiculopathy Instructions: DI for Lumbar Radiculopathy Activity Restrictions/Additional Instructions: Follow up with your primary care. You can take acetaminophen up to a 1000 mg every 6 hours as needed for pain. If inadequate for pain you can take meloxicam 1 tablet every 12 hours as needed. Do not take this medication with ibuprofen, Aleve, naproxen or other NSAIDs. Prescription sent to [facility] in [place]. Please return for rapidly worsening symptoms, fevers, loss of bowel or bladder control, new weakness, loss of sensation, no inability to lift or move your leg or legs or other new or concerning changes. Prescriptions: New meloxicam 7.5 mg tablet 7.5 mg PO BID PRN (Reason: pain) Qty: 20 0RF No Action gabapentin 800 mg tablet 800 mg PO TID Qty: 90 3RF naloxone [Narcan] 4 mg/actuation spray,non-aerosol 4 mg intranasal Q2M PRN (Reason: opioid overdose) Qty: 2 0RF Rx Instructions: spray 1 dose into ONE nostril; alternate nostrils w each dose until help arrives buspirone 10 mg tablet 10 mg PO BID Qty: 60 0RF methocarbamol 500 mg tablet 500 mg PO TID Qty: 90 3RF hydrocodone-acetaminophen 5-325 mg tablet 1 tab PO BID PRN (Reason: pain) Qty: 45 0RF diazepam 5 mg tablet 5 mg PO BID PRN (Reason: anxiety) Qty: 60 1RF atorvastatin 80 mg tablet 80 mg PO BEDTIME Qty: 90 4RF bupropion HCl 150 mg tablet extended release 24 hr See Rx Instructions .ROUTE .COMPLEX Qty: 90 5RF Dose Instruction: TAKE 3 TABLETS BY MOUTH EVERY MORNING Rx Instructions: TAKE 1 TABLET BY MOUTH EVERY MORNING lisinopril 20 mg tablet 20 mg PO DAILY lidocaine 5 % adhesive patch,medicated 1 patch topical DAILY Qty: 30 3RF Rx Instructions: leave on most painful area for up to 12 hrs naproxen 500 mg tablet 500 mg PO BID PRN (Reason: for pain) Qty: 60 2RF aspirin [Adult Aspirin Regimen] 81 mg tablet,delayed release (DR/EC) 81 mg PO DAILY Qty: 90 3RF metoprolol succinate 25 mg tablet extended release 24 hr 25 mg PO DAILY Qty: 90 2RF hydroxyzine pamoate 25 mg capsule 25 - 50 mg PO 3XD PRN (Reason: for anxiety attack) Qty: 180 0RF albuterol sulfate 90 mcg/actuation HFA aerosol inhaler 2 inh inhalation Q4-6H PRN (Reason: shortness of breath or wheezing) Qty: 6.7 3RF ketorolac 10 mg tablet 10 mg PO Q8H PRN (Reason: pain) Qty: 14 0RF Rx Instructions: maximum total duration of 5 days from all oral, intranasal, or parenteral formulations acetaminophen [Tylenol Extra Strength] 500 mg tablet 1,000 mg PO Q6H PRN (Reason: pain) Qty: 20 0RF Referrals: Luz Saravia MD [Primary Care Provider, Family Practice] Stand Alone Forms: Patient Portal/API
[2024-09-30] MEDS: KETOROLAC 30 MG/ML VIAL IM (10:05)
== END 2024-09-30 10:21 | disposition home or self-care (01) ==
PROVIDERS: Emergency Provider Emergency Medicine; PCP Student in an Organized Health Care Education/Training Program
DX: M54.16 Radiculopathy, lumbar region (principal); Z87.311 Personal history of (healed) other pathological fracture
CPT/HCPCS: 90471; 99283; 99284; J1885

== ENCOUNTER 2024-10-14 14:30 | Emergency (ER) | payer MEDICARE, MEDICAID, SELFPAY ==
[2024-08-16 12:07] VITALS: BMI 29.0
[2024-10-14 14:43] VITALS: BP 115/55; PULSE 66; RESP 18; TEMP 37.1; O2SAT 98; BMI 25.4
--- NOTE | 2024-10-14 14:59 | ED.NECK ---
HPI - Neck Pain/Injury <Esha Goldberg PA-C - Last Filed: 10/14/24 19:56> General Chief Complaint: Neck Pain/Injury Stated Complaint: Neck pain x 4 days Time Seen by Provider: 10/14/24 14:53 Mode of arrival: Ambulatory History of Present Illness HPI Narrative: 59-year-old male with a history of chronic neck pain, TBI TIA CVA anxiety degenerative disc disease bipolar 2 and hypertension presents with concern for headache and neck pain for 4 days. Patient states he has also had some very mild nausea. He states that his neck pain feels similar to previous neck pain but worse than usual. He believes that his headache is related to his neck tightness/pain. He also states that heavy his ears have been bothering him for the last 3 or 4 days. Not so much pain as some pressure. He denies any recent fevers or chills chest pain, vision change, speech change, one-sided weakness, balance or coordination problems or other symptoms. Patient requesting opioid medication. Related Data Home Medications ?Medication ?Instructions ?Recorded ?Confirmed lisinopril 20 mg tablet 20 mg PO DAILY 10/06/23 10/14/24 spironolactone 25 mg tablet mg PO 10/14/24 10/14/24 Previous Rx's ?Medication ?Instructions ?Recorded albuterol sulfate 90 mcg/actuation 2 inh inhalation Q4-6H PRN 12/30/21 aerosol inhaler shortness of breath or wheezing Held on 04/27/23. #6.7 grams Instructions: Dimissed from Clinic 10/23/2022 atorvastatin 80 mg tablet 80 mg PO BEDTIME #90 tabs 09/15/23 bupropion HCl 150 mg 24 hr tablet, See Rx Instructions .Route 09/15/23 extended release .COMPLEX #90 tabs acetaminophen 500 mg tablet 1,000 mg (2 x 500 mg) PO Q6H PRN 11/14/23 (Tylenol Extra Strength) pain #20 tabs lidocaine 5 % topical patch 1 patch topical DAILY #30 ea 11/19/23 gabapentin 800 mg tablet 800 mg PO TID #90 tabs 06/16/24 naproxen 500 mg tablet 500 mg PO BID PRN for pain #60 tabs 08/02/24 naloxone 4 mg/actuation nasal 4 mg intranasal Q2M PRN opioid 08/16/24 spray (Narcan) overdose #2 ea aspirin 81 mg tablet,delayed 81 mg PO DAILY #90 tabs 08/24/24 release (Adult Aspirin Regimen) metoprolol succinate 25 mg 25 mg PO DAILY #90 tabs 08/24/24 tablet,extended release 24 hr ketorolac 10 mg tablet 10 mg PO Q8H PRN pain #14 tabs 09/02/24 hydroxyzine pamoate 25 mg capsule 25 - 50 mg (1 - 2 x 25 mg) PO 3XD 09/09/24 PRN for anxiety attack #180 caps buspirone 10 mg tablet 10 mg PO BID #60 tabs 09/26/24 diazepam 5 mg tablet 5 mg PO BID PRN anxiety #60 tabs 09/26/24 hydrocodone 5 mg-acetaminophen 325 1 tab PO BID PRN pain #45 tabs 09/26/24 mg tablet methocarbamol 500 mg tablet 500 mg PO TID #90 tabs 09/26/24 meloxicam 7.5 mg tablet 7.5 mg PO BID PRN pain #20 tabs 09/30/24 Allergies Allergy/AdvReac Type Severity Reaction Status Date / Time No Known Drug Allergies Allergy Verified 10/14/24 14:44 Review of Systems <Esha Goldberg PA-C - Last Filed: 10/14/24 19:56> Review of Systems Narrative: See HPI Patient History <Esha Goldberg PA-C - Last Filed: 10/14/24 19:56> Medical History Tobacco use Bronchitis Chronic bronchitis Hyperlipidemia 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 Well-developed patient, disheveled appearing, in mild distress. HEAD: Atraumatic. Normocephalic. EYES: Pupils equal round and reactive. Extraocular motions intact. No scleral icterus. No injection or drainage. ENT: Nose without bleeding, purulent drainage. Throat without erythema, tonsillar hypertrophy or exudate. Airway patent. Bilateral ears have significant impacted cerumen yellowish in color dense. Unable to visualize the TMs. NECK: Trachea midline. Otherwise Non tender. CARDIOVASCULAR: Regular rate and rhythm without murmurs, gallops, or rubs. RESPIRATORY: Clear to auscultation. Breath sounds equal bilaterally. No wheezes, rales, or rhonchi. GASTROINTESTINAL: Abdomen soft, non-tender, nondistended. EXTREMITIES: No edema or joint tenderness. BACK: There is mild tenderness just lateral to proximally C7 with no midline point tenderness. Patient endorses this is location of his chronic pain. Nontender without deformity or crepitance. No flank tenderness. NEURO: AOx3. Cranial nerves 2-12 intact. Negative arm drift. No meningeal signs SKIN: No rash or erythema of visible areas Initial Vital Signs Initial Vital Signs: Vital Signs Temperature 98.7 F 10/14/24 14:43 Pulse Rate 66 10/14/24 14:43 Respiratory Rate 18 10/14/24 14:43 Blood Pressure 115/55 L 10/14/24 14:43 Pulse Oximetry 98 10/14/24 14:43 Oxygen Delivery Method Room Air 10/14/24 14:43 <Mary Boyd MD - Last Filed: 10/15/24 18:34> Initial Vital Signs Initial Vital Signs: Vital Signs Temperature 98.7 F 10/14/24 14:43 Pulse Rate 66 10/14/24 14:43 Respiratory Rate 18 10/14/24 14:43 Blood Pressure 115/55 L 10/14/24 14:43 Pulse Oximetry 98 10/14/24 14:43 Oxygen Delivery Method Room Air 10/14/24 14:43 Course <Esha Goldberg PA-C - Last Filed: 10/14/24 19:56> Orders Ordered: Discontinued Medications Ketorolac Tromethamine (Ketorolac 30 Mg/Ml Vial) 15 mg IM NOW ONE Stop: 10/14/24 15:44 Ondansetron HCl (Ondansetron 4 Mg Odt) 4 mg SL NOW ONE Stop: 10/14/24 15:44 Vital Signs Vital signs: Vital Signs - 8 hr 10/14/24 14:43 Temperature 98.7 F Pulse Rate 66 Respiratory Rate 18 Blood Pressure 115/55 L Pulse Oximetry 98 Oxygen Delivery Method Room Air <Mary Boyd MD - Last Filed: 10/15/24 18:34> Orders Ordered: Discontinued Medications Ketorolac Tromethamine (Ketorolac 30 Mg/Ml Vial) 15 mg IM NOW ONE Stop: 10/14/24 15:44 Ondansetron HCl (Ondansetron 4 Mg Odt) 4 mg SL NOW ONE Stop: 10/14/24 15:44 Vital Signs Vital signs: Vital Signs - 8 hr 10/14/24 14:43 Temperature 98.7 F Pulse Rate 66 Respiratory Rate 18 Blood Pressure 115/55 L Pulse Oximetry 98 Oxygen Delivery Method Room Air MDM - Neck Pain/Injury <Esha Goldberg PA-C - Last Filed: 10/14/24 19:56> Differential Diagnosis Differential diagnosis: Likely strain of neck muscle and other (Chronic neck pain,, viral illness, headache, left against Against Medical Advice) Medical Records Attestation: I reviewed the patient's medical records. Lab Data Attestation: I reviewed the patient's lab results. Labs: Lab Results 10/14/24 Range/Units 14:55 SARS-CoV-2 (PCR) Negative (Negative) Influenza A (RT-PCR) Flu a negative (NEGATIVE) Influenza B (RT-PCR) Flu b negative (NEGATIVE) RSV (PCR) Negative (Negative) MDM Narrative Medical decision making narrative: This is a 59-year-old patient with history of chronic neck pain, previous TBI CVA TIA presenting with concern for neck pain also endorsing a headache which he believes is caused by his neck pain. Patient requesting opioid pain medication. Patient has a an 78 with 12 ER visits within the last year. Also multiple prescriptions for opioids and benzodiazepines. His neuro exam was unremarkable and he had no meningeal signs. Did initially attempt cerumen removal as he endorsed some left ear pain and significant cerumen present. He tolerated this okay but it was unsuccessful. Patient left Against Medical Advice prior to administration of nausea medicine (Zofran sublingual and Toradol which were ordered for him). Had anticipated monitoring for improvement of symptoms after these treatments however as patient left Against Medical Advice was unable to do so. Patient did have a COVID flu and RSV test nasal swab obtained which returned negative. <Mary Boyd MD - Last Filed: 10/15/24 18:34> Lab Data Labs: Lab Results 10/14/24 Range/Units 14:55 SARS-CoV-2 (PCR) Negative (Negative) Influenza A (RT-PCR) Flu a negative (NEGATIVE) Influenza B (RT-PCR) Flu b negative (NEGATIVE) RSV (PCR) Negative (Negative) Discharge Plan Departure Patient Disposition: Left Against Medical Advice Clinical Impression: Left against medical advice, Chronic neck pain Headache Qualifiers: Headache type: unspecified Headache chronicity pattern: unspecified pattern Intractability: not intractable Qualified Code(s): R51.9 - Headache, unspecified Prescriptions: No Action gabapentin 800 mg tablet 800 mg PO TID Qty: 90 3RF naloxone [Narcan] 4 mg/actuation spray,non-aerosol 4 mg intranasal Q2M PRN (Reason: opioid overdose) Qty: 2 0RF Rx Instructions: spray 1 dose into ONE nostril; alternate nostrils w each dose until help arrives buspirone 10 mg tablet 10 mg PO BID Qty: 60 0RF methocarbamol 500 mg tablet 500 mg PO TID Qty: 90 3RF hydrocodone-acetaminophen 5-325 mg tablet 1 tab PO BID PRN (Reason: pain) Qty: 45 0RF diazepam 5 mg tablet 5 mg PO BID PRN (Reason: anxiety) Qty: 60 1RF atorvastatin 80 mg tablet 80 mg PO BEDTIME Qty: 90 4RF bupropion HCl 150 mg tablet extended release 24 hr See Rx Instructions .ROUTE .COMPLEX Qty: 90 5RF Dose Instruction: TAKE 3 TABLETS BY MOUTH EVERY MORNING Rx Instructions: TAKE 1 TABLET BY MOUTH EVERY MORNING lisinopril 20 mg tablet 20 mg PO DAILY spironolactone 25 mg tablet PO Patient Comments: [NO ORIGINAL SIG] lidocaine 5 % adhesive patch,medicated 1 patch topical DAILY Qty: 30 3RF Rx Instructions: leave on most painful area for up to 12 hrs naproxen 500 mg tablet 500 mg PO BID PRN (Reason: for pain) Qty: 60 2RF aspirin [Adult Aspirin Regimen] 81 mg tablet,delayed release (DR/EC) 81 mg PO DAILY Qty: 90 3RF metoprolol succinate 25 mg tablet extended release 24 hr 25 mg PO DAILY Qty: 90 2RF hydroxyzine pamoate 25 mg capsule 25 - 50 mg PO 3XD PRN (Reason: for anxiety attack) Qty: 180 0RF albuterol sulfate 90 mcg/actuation HFA aerosol inhaler 2 inh inhalation Q4-6H PRN (Reason: shortness of breath or wheezing) Qty: 6.7 3RF ketorolac 10 mg tablet 10 mg PO Q8H PRN (Reason: pain) Qty: 14 0RF Rx Instructions: maximum total duration of 5 days from all oral, intranasal, or parenteral formulations meloxicam 7.5 mg tablet 7.5 mg PO BID PRN (Reason: pain) Qty: 20 0RF acetaminophen [Tylenol Extra Strength] 500 mg tablet 1,000 mg PO Q6H PRN (Reason: pain) Qty: 20 0RF Referrals: Luz Saravia MD [Primary Care Provider, Family Practice] Stand Alone Forms: Patient Portal/API, Against Med. Advice ([place]) ED Sign-out <Mary Boyd MD - Last Filed: 10/15/24 18:34> Cosign ED Attending Cosignature Attestation: I was immediately available in the department for consultation throughout this patient's visit. Mary Boyd MD
--- NOTE | 2024-10-14 15:16 | PC.NURSE ---
pt is disheveled and appearance as per baseline of his previous visits. he states his pain in his neck is similar in location to other episode but today the pain is worse than normal. He is ambulatory independently and freely moving his head around. He asked if he could have oxycondone or hydrocodone for his pain today.
[2024-10-14 15:45] LABS: Influenza A - CEPHEID Flu A NEGATIVE (NEGATIVE); Influenza B - CEPHEID Flu B NEGATIVE (NEGATIVE); Respiratory Syncytial Virus Negative (Negative)
[2024-10-14 15:50] LABS: COVID-19 CEPHEID 4-PLEX PCR Negative (Negative)
== END 2024-10-14 16:52 | disposition left against medical advice (07) ==
PROVIDERS: Emergency Provider Student in an Organized Health Care Education/Training Program; PCP Student in an Organized Health Care Education/Training Program
DX: R51.9 Headache, unspecified (principal); M54.2 Cervicalgia; G89.29 Other chronic pain; Z53.29 Procedure and treatment not carried out because of patient's decision for other reasons
CPT/HCPCS: 0241U; 99282

== ENCOUNTER 2024-10-21 11:44 | Emergency (ER) | payer MEDICARE, MEDICAID, SELFPAY ==
[2024-08-16 12:07] VITALS: BMI 29.0
[2024-10-21 11:51] VITALS: BP 93/47; PULSE 48; RESP 18; O2SAT 98; BMI 22.8
--- NOTE | 2024-10-21 11:54 | ED.GENADULT ---
HPI - General Adult General Chief complaint: Unresponsive Stated complaint: Possible Seizure Time Seen by Provider: 10/21/24 11:46 Source: patient, EMS, RN notes reviewed and old records reviewed Mode of arrival: EMS Limitations: no limitations History of Present Illness HPI narrative: 59-year-old male history of hypertension dyslipidemia bipolar CABG, polysubstance abuse found down in front of his apartment building medics were initially concerned that might need intubate he abruptly woke up and was conversant but they noted he was bradycardic and hypotensive in the field. Patient is alert, oriented, NIH of 0 quite hypotensive here in the department as well with a systolic of 90. Has had similar episodes in the past. Patient is mostly concerned about the salad that he had with him and where it might have gone medics noted that is spoken with his family who is his mother. Patient does not wish for further medical intervention or treatments he wishes to leave. Discussed I am concerned that his heart could stop and he could he expresses he was DNR/DNI. He also expressed this to EMS as well. Related Data Home Medications ?Medication ?Instructions ?Recorded ?Confirmed lisinopril 20 mg tablet 20 mg PO DAILY 10/06/23 10/14/24 spironolactone 25 mg tablet mg PO 10/14/24 10/14/24 Previous Rx's ?Medication ?Instructions ?Recorded albuterol sulfate 90 mcg/actuation 2 inh inhalation Q4-6H PRN 12/30/21 aerosol inhaler shortness of breath or wheezing Held on 04/27/23. #6.7 grams Instructions: Dimissed from Clinic 10/23/2022 atorvastatin 80 mg tablet 80 mg PO BEDTIME #90 tabs 09/15/23 bupropion HCl 150 mg 24 hr tablet, See Rx Instructions .Route 09/15/23 extended release .COMPLEX #90 tabs acetaminophen 500 mg tablet 1,000 mg (2 x 500 mg) PO Q6H PRN 11/14/23 (Tylenol Extra Strength) pain #20 tabs lidocaine 5 % topical patch 1 patch topical DAILY #30 ea 11/19/23 gabapentin 800 mg tablet 800 mg PO TID #90 tabs 06/16/24 naproxen 500 mg tablet 500 mg PO BID PRN for pain #60 tabs 08/02/24 naloxone 4 mg/actuation nasal 4 mg intranasal Q2M PRN opioid 08/16/24 spray (Narcan) overdose #2 ea aspirin 81 mg tablet,delayed 81 mg PO DAILY #90 tabs 08/24/24 release (Adult Aspirin Regimen) metoprolol succinate 25 mg 25 mg PO DAILY #90 tabs 08/24/24 tablet,extended release 24 hr ketorolac 10 mg tablet 10 mg PO Q8H PRN pain #14 tabs 09/02/24 hydroxyzine pamoate 25 mg capsule 25 - 50 mg (1 - 2 x 25 mg) PO 3XD 09/09/24 PRN for anxiety attack #180 caps buspirone 10 mg tablet 10 mg PO BID #60 tabs 09/26/24 diazepam 5 mg tablet 5 mg PO BID PRN anxiety #60 tabs 09/26/24 hydrocodone 5 mg-acetaminophen 325 1 tab PO BID PRN pain #45 tabs 09/26/24 mg tablet methocarbamol 500 mg tablet 500 mg PO TID #90 tabs 09/26/24 meloxicam 7.5 mg tablet 7.5 mg PO BID PRN pain #20 tabs 09/30/24 Allergies Allergy/AdvReac Type Severity Reaction Status Date / Time No Known Drug Allergies Allergy Verified 10/21/24 11:52 Review of Systems Review of Systems ROS Unobtainable: All systems reviewed & are unremarkable except as noted in HPI and below Patient History Medical History Tobacco use Bronchitis Chronic bronchitis Hyperlipidemia 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 He states DNR/DNI did not other intervention. States that he wants to leave. He was pale, diaphoretic. HEENT: Head normocephalic, atraumatic, EOMI, pupils reactive, face symmetric, moist mucous membranes NECK: Supple, full range of motion CARDIOVASCULAR: Regular rate and rhythm without murmurs, rubs or gallops. RESPIRATORY: Breath sounds equal bilaterally, no wheezes. Patient has crackles bilaterally. Positive for JVD. No edema bilateral lower extremities. ABDOMEN: Soft, nontender. Normoactive bowel sounds all 4 quadrants. No guarding or rebound, rigidity, no mass : No CVA tenderness, no urinary incontinence. EXTREMITIES: Normal range of motion, no clubbing or edema. Neurovascularly intact NEUROLOGICAL: Cranial nerves II through XII grossly intact. Moving all extremities SKIN: Warm, dry, no petechiae, no rashes or lesions. Initial Vital Signs Initial Vital Signs: Vital Signs Pulse Rate 48 L 10/21/24 11:51 Respiratory Rate 18 10/21/24 11:51 Blood Pressure 93/47 L 10/21/24 11:51 Pulse Oximetry 98 10/21/24 11:51 Oxygen Delivery Method Room Air 10/21/24 11:51 Course Vital Signs Vital signs: Vital Signs - 8 hr 10/21/24 11:51 Pulse Rate 48 L Respiratory Rate 18 Blood Pressure 93/47 L Pulse Oximetry 98 Oxygen Delivery Method Room Air Medical Decision Making [facility] Narrative Medical decision making narrative: 59-year-old male alert, oriented very pale, is well known to myself at this facility, reportedly told medics he may have had a seizure although has had hypotensive episodes and syncope in the past and I suspect it maybe more related to his cardiac issues. When I discussed with the patient he states maybe a had a seizure but does not reported actual seizure history. Multiple staff members were present as well as myself and patient report he was DNR/DNI. He does not wish to stay does not wish to have additional workup. He appears alert, oriented and competent. He was ambulating in the department without any issue. Discharge Plan Departure Patient Disposition: Left Against Medical Advice Clinical Impression: Hypotension, Syncope Instructions: Naloxone for Opiate Overdose - WADOH Activity Restrictions/Additional Instructions: It was recommended that you do not leave today that you have further workup and evaluation. You can return at any time for re-evaluation. Prescriptions: No Action gabapentin 800 mg tablet 800 mg PO TID Qty: 90 3RF naloxone [Narcan] 4 mg/actuation spray,non-aerosol 4 mg intranasal Q2M PRN (Reason: opioid overdose) Qty: 2 0RF Rx Instructions: spray 1 dose into ONE nostril; alternate nostrils w each dose until help arrives buspirone 10 mg tablet 10 mg PO BID Qty: 60 0RF methocarbamol 500 mg tablet 500 mg PO TID Qty: 90 3RF hydrocodone-acetaminophen 5-325 mg tablet 1 tab PO BID PRN (Reason: pain) Qty: 45 0RF diazepam 5 mg tablet 5 mg PO BID PRN (Reason: anxiety) Qty: 60 1RF atorvastatin 80 mg tablet 80 mg PO BEDTIME Qty: 90 4RF bupropion HCl 150 mg tablet extended release 24 hr See Rx Instructions .ROUTE .COMPLEX Qty: 90 5RF Dose Instruction: TAKE 3 TABLETS BY MOUTH EVERY MORNING Rx Instructions: TAKE 1 TABLET BY MOUTH EVERY MORNING lisinopril 20 mg tablet 20 mg PO DAILY spironolactone 25 mg tablet PO Patient Comments: [NO ORIGINAL SIG] lidocaine 5 % adhesive patch,medicated 1 patch topical DAILY Qty: 30 3RF Rx Instructions: leave on most painful area for up to 12 hrs naproxen 500 mg tablet 500 mg PO BID PRN (Reason: for pain) Qty: 60 2RF aspirin [Adult Aspirin Regimen] 81 mg tablet,delayed release (DR/EC) 81 mg PO DAILY Qty: 90 3RF metoprolol succinate 25 mg tablet extended release 24 hr 25 mg PO DAILY Qty: 90 2RF hydroxyzine pamoate 25 mg capsule 25 - 50 mg PO 3XD PRN (Reason: for anxiety attack) Qty: 180 0RF albuterol sulfate 90 mcg/actuation HFA aerosol inhaler 2 inh inhalation Q4-6H PRN (Reason: shortness of breath or wheezing) Qty: 6.7 3RF ketorolac 10 mg tablet 10 mg PO Q8H PRN (Reason: pain) Qty: 14 0RF Rx Instructions: maximum total duration of 5 days from all oral, intranasal, or parenteral formulations meloxicam 7.5 mg tablet 7.5 mg PO BID PRN (Reason: pain) Qty: 20 0RF acetaminophen [Tylenol Extra Strength] 500 mg tablet 1,000 mg PO Q6H PRN (Reason: pain) Qty: 20 0RF Referrals: Luz Saravia MD [Primary Care Provider, Family Practice] Stand Alone Forms: Patient Portal/API, Against Med. Advice (Bel[place]ian), Naloxone Standing Order MIROSLAVA
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
== END 2024-10-21 12:11 | disposition left against medical advice (07) ==
PROVIDERS: Emergency Provider Emergency Medicine; PCP Student in an Organized Health Care Education/Training Program
DX: R55 Syncope and collapse (principal); I95.9 Hypotension, unspecified; F17.210 Nicotine dependence, cigarettes, uncomplicated; Z53.29 Procedure and treatment not carried out because of patient's decision for other reasons
CPT/HCPCS: 99281

== ENCOUNTER 2024-10-29 07:54 | Emergency (ER) | payer MEDICARE, OTHER, MEDICAID, SELFPAY ==
[2024-08-16 12:07] VITALS: BMI 29.0
[2024-10-29 08:00] VITALS: BP 169/85; PULSE 80; RESP 19; TEMP 37; O2SAT 98; BMI 25.0
== END 2024-10-29 13:34 | disposition left against medical advice (07) ==
PROVIDERS: Emergency Provider Emergency Medicine; PCP Student in an Organized Health Care Education/Training Program
CPT/HCPCS: 99281

== ENCOUNTER 2024-11-01 08:28 | Emergency (ER) | payer MEDICARE, OTHER, MEDICAID, SELFPAY ==
[2024-08-16 12:07] VITALS: BMI 29.0
[2024-11-01 08:51] VITALS: BP 151/92; PULSE 89; RESP 16; TEMP 36.9; O2SAT 95; BMI 25.0
== END 2024-11-01 11:41 | disposition left against medical advice (07) ==
PROVIDERS: Emergency Provider Emergency Medicine; PCP Student in an Organized Health Care Education/Training Program
DX: Z53.21 Procedure and treatment not carried out due to patient leaving prior to being seen by health care provider (principal)
CPT/HCPCS: 99281

== ENCOUNTER 2024-11-05 15:48 | Emergency (ER) | payer MEDICARE, OTHER, MEDICAID, SELFPAY ==
[2024-08-16 12:07] VITALS: BMI 29.0
[2024-11-05 15:53] VITALS: BP 132/64; PULSE 67; RESP 16; TEMP 36.3; O2SAT 99; BMI 22.1
== END 2024-11-05 16:43 | disposition left against medical advice (07) ==
PROVIDERS: Emergency Provider Family Medicine; PCP Student in an Organized Health Care Education/Training Program
CPT/HCPCS: 99281

== ENCOUNTER 2025-01-07 12:46 | Emergency (ER) | payer MEDICARE, MEDICAID, SELFPAY ==
[2024-11-11 12:13] VITALS: BMI 29.0
[2025-01-07] VITALS (13 sets, daily range): BP systolic 93–112; BP diastolic 43–57; PULSE 58–94; RESP 13–18; TEMP 36.8; O2SAT 94–99; BMI 25.0
--- NOTE | 2025-01-07 13:11 | EKG_ITS ---
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
[2025-01-07] MEDS: SODIUM CHLORIDE 0.9% 1,000 ML 1000 ML IV (13:18)
[2025-01-07 13:25] LABS: Add Manual Diff / Slide Review NO; Hematocrit 34.4 % (41-53); Hemoglobin 12.0 g/dL (13.5-17.5); Lymphocytes Absolute Auto 1100 /uL (1100-4500); Mean Corpuscular HGB Conc 35.0 % (30-36); Mean Corpuscular Hemoglobin 32.2 PG (26-34); Mean Corpuscular Volume 92.0 fL (80-100); Platelet Count 203 X10^3/uL (150-400)
[2025-01-07 13:32] LABS: INR 1.1 (0.9-1.3); Prothrombin Time 12.0 SECONDS (9.4-12.5)
[2025-01-07 13:34] LABS: PTT Partial Thromboplastin Tim 28 SECONDS (25.1-36.5)
[2025-01-07 13:41] LABS: Alanine Aminotransferase 25 IU/L (<50); Albumin 4.3 g/dL (3.5-5.0); Albumin Globulin Ratio 1.7 (1.0-2.8); Alkaline Phosphatase 48 U/L (38-126); Blood Urea Nitrogen 31 mg/dL (9-20); Calcium 8.8 mg/dL (8.4-10.2); Carbon Dioxide 22 mmol/L (22-32); Chloride 107 mmol/L (98-107); Creatine Kinase 63 U/L (55-170); Estimated Glomerular Filt Rate > 60 mL/min (>60); Globulin 2.5 g/dL (1.7-4.1); Glucose 114 mg/dL (70-99); HEMOLYSIS < 15 (0-50); Lipase 90 U/L (23-300); Magnesium 1.9 mg/dL (1.6-2.3); Potassium 3.7 mmol/L (3.4-5.1); Sodium 139 mmol/L (137-145); Total Protein 6.8 g/dL (6.3-8.2)
[2025-01-07 13:52] LABS: NT-proBNP (BNP-Adult 18+) 119 pg/mL (<125); Troponin I < 0.012 ng/mL (0.01-0.034)
--- NOTE | 2025-01-07 13:59 | ED.BACK ---
HPI - Back Pain/Injury General Chief Complaint: Back Pain/Injury Stated Complaint: pain back and legs Time Seen by Provider: 01/07/25 13:44 Source: patient History of Present Illness HPI Narrative: Patient is a 59-year-old male history of chronic back pain osteomyelitis of lumbar spine, coronary artery disease with CABG x4, tobacco use presenting to day with ongoing back pain. Initial blood pressure systolic was in the 90s. Upon review he has had low blood pressures in the past, he has been seen in the ED for the same he has had CT angio in October 2024 no aneurysm identified, he had MRI of the lumbar spine in June of 2024 which showed multilevel multifactorial lumbar spondylosis. With progression of degenerative changes. CT lumbar in July 2023 showed the same. Today he is presenting with a variety of symptoms including worsening back pain headache. According to last PCP note he is managed with oxycodone and trazodone. It appears that he has had similar episodes in the past. Blood pressure actually quickly improved with some IV fluid. Patient denies any chest pain or palpitations. Related Data Home Medications ?Medication ?Instructions ?Recorded ?Confirmed spironolactone 25 mg tablet mg PO 10/14/24 11/11/24 Previous Rx's ?Medication ?Instructions ?Recorded albuterol sulfate 90 mcg/actuation 2 inh inhalation Q4-6H PRN 12/30/21 aerosol inhaler shortness of breath or wheezing Held on 04/27/23. #6.7 grams Instructions: Dimissed from Clinic 10/23/2022 acetaminophen 500 mg tablet 1,000 mg (2 x 500 mg) PO Q6H PRN 11/14/23 (Tylenol Extra Strength) pain #20 tabs lidocaine 5 % topical patch 1 patch topical DAILY #30 ea 11/19/23 naloxone 4 mg/actuation nasal 4 mg intranasal Q2M PRN opioid 08/16/24 spray (Narcan) overdose #2 ea aspirin 81 mg tablet,delayed 81 mg PO DAILY #90 tabs 08/24/24 release (Adult Aspirin Regimen) metoprolol succinate 25 mg 25 mg PO DAILY #90 tabs 08/24/24 tablet,extended release 24 hr ketorolac 10 mg tablet 10 mg PO Q8H PRN pain #14 tabs 09/02/24 buspirone 10 mg tablet 10 mg PO BID #60 tabs 09/26/24 methocarbamol 500 mg tablet 500 mg PO TID #90 tabs 09/26/24 diazepam 5 mg tablet 5 mg PO BID PRN anxiety #60 tabs 11/03/24 gabapentin 800 mg tablet 800 mg PO TID #90 tabs 11/03/24 hydroxyzine pamoate 25 mg capsule 25 - 50 mg (1 - 2 x 25 mg) PO 3XD 11/03/24 PRN for anxiety attack #180 caps naproxen 500 mg tablet 500 mg PO BID PRN for pain #60 tabs 11/03/24 trazodone 50 mg tablet 50 - 100 mg (1 - 2 x 50 mg) PO 11/11/24 BEDTIME PRN sleep #60 tabs atorvastatin 80 mg tablet 80 mg PO ONCE PM #90 tabs 11/15/24 bupropion HCl 150 mg 24 hr tablet, 150 mg PO QAM #90 tabs 11/15/24 extended release oxycodone 5 mg tablet 5 mg PO BID PRN pain #45 tabs 12/01/24 Allergies Allergy/AdvReac Type Severity Reaction Status Date / Time No Known Drug Allergies Allergy Verified 01/07/25 13:03 Patient History Medical History Acute osteomyelitis of lumbar spine Anxiety Bronchitis Chronic bronchitis Coronary artery disease Discitis Facet arthropathy, lumbar Herniated nucleus pulposus, L4-5 HTN (hypertension) Hyperlipidemia 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) Tobacco use Surgical History H/O valvuloplasty S/P CABG x 4 Family History Grandfather Heart attack Family/Other Heart attack Social History household members: family Smoking Status: Current every day smoker alcohol intake: former Smoking Status: Current every day smoker tobacco type: cigarettes alcohol intake frequency: other Exam Initial Vital Signs Initial Vital Signs: Vital Signs Temperature 98.2 F 01/07/25 12:52 Pulse Rate 94 H 01/07/25 12:52 Respiratory Rate 16 01/07/25 12:52 Blood Pressure 93/43 L 01/07/25 12:52 Pulse Oximetry 98 01/07/25 12:52 Oxygen Delivery Method Room Air 01/07/25 12:52 GENERAL: Somnolent but arousable 59-year-old male and in no acute distress. HEENT: Head atraumatic,EOMI, pupils reactive, face symmetric, moist mucous membranes CARDIOVASCULAR: Regular rate and rhythm without murmurs, rubs or gallops. RESPIRATORY: Breath sounds equal bilaterally, no wheezes rales or rhonchi. ABDOMEN: Soft, nontender. Normoactive bowel sounds all 4 quadrants. No guarding or rebound. No pulsating masses EXTREMITIES: Normal range of motion, no clubbing or edema. Neurovascularly intact Feet are warm bilaterally with palpable bilateral distal pedal pulse NEUROLOGICAL: Alert and oriented x4.Normal gait and speech. Cranial nerves II through XII grossly intact. SKIN: Warm, dry, no laceration, no petechiae, no rashes or lesions. Course Orders Ordered: ED Orders 01/07/25 13:11 EKG-12 Lead Stat 01/07/25 13:20 Complete Blood Count AUTO DIFF Stat Comprehensive Metabolic Panel Stat Lipase Stat Magnesium Stat NT-proBNP (BNP-Adult 18+) Stat PTT Partial Thromboplastin Fco Stat Prothrombin Time INR Stat Troponin & CK Cardiac Panel Stat 01/07/25 14:39 Lactate (Lactic Acid) Stat Discontinued Medications Sodium Chloride (Normal Saline 0.9%) 1,000 mls @ 1,000 mls/hr IV BOLUS ONE Stop: 01/07/25 14:12 Last Infusion: 01/07/25 14:26 Dose: Infused Documented By: Admin: 01/07/25 13:18 Dose: 1,000 mls/hr Documented By: MIKE Ketorolac Tromethamine (Ketorolac 30 Mg/Ml Vial) 15 mg IV NOW ONE Stop: 01/07/25 14:03 Last Admin: 01/07/25 14:25 Dose: 15 mg Documented By: ELMER Vital Signs Vital signs: Vital Signs - 8 hr 01/07/25 12:52 01/07/25 13:02 01/07/25 13:15 Temperature 98.2 F Pulse Rate 94 H 64 Respiratory Rate 16 14 Blood Pressure 93/43 L 99/53 L 106/55 L Pulse Oximetry 98 97 Oxygen Delivery Method Room Air 01/07/25 13:20 01/07/25 13:31 01/07/25 13:40 Temperature Pulse Rate 62 62 Respiratory Rate 13 15 Blood Pressure 112/54 L 94/51 L 109/55 L Pulse Oximetry 98 98 Oxygen Delivery Method Room Air 01/07/25 13:40 01/07/25 14:00 01/07/25 14:01 Temperature Pulse Rate 63 58 L Respiratory Rate 15 18 Blood Pressure 104/51 L Pulse Oximetry 98 99 Oxygen Delivery Method 01/07/25 14:01 01/07/25 14:10 01/07/25 14:10 Temperature Pulse Rate 58 L 61 Respiratory Rate 16 14 Blood Pressure 100/50 L Pulse Oximetry 99 98 Oxygen Delivery Method 01/07/25 14:15 01/07/25 14:15 01/07/25 14:20 Temperature Pulse Rate 59 L 60 Respiratory Rate Blood Pressure 104/53 L Pulse Oximetry 94 99 Oxygen Delivery Method 01/07/25 14:20 01/07/25 14:30 01/07/25 14:34 Temperature Pulse Rate 60 Respiratory Rate Blood Pressure 106/52 L 105/57 L Pulse Oximetry 98 Oxygen Delivery Method 01/07/25 14:34 Temperature Pulse Rate 69 Respiratory Rate Blood Pressure Pulse Oximetry 99 Oxygen Delivery Method MDM - Back Pain/Injury Lab Data 01/07/25 13:20 01/07/25 13:20 Labs: Lab Results 01/07/25 01/07/25 01/07/25 Range/Units 13:20 14:35 14:39 WBC 7.3 (4.5-11.0) X10^3/uL RBC 3.74 L (4.5-5.9) X10^6/uL Hgb 12.0 L (13.5-17.5) g/dL Hct 34.4 L (41-53) % MCV 92.0 (80-100) fL MCH 32.2 (26-34) PG MCHC 35.0 (30-36) % RDW 13.7 (11.6-14.8) % Plt Count 203 (150-400) X10^3/uL Neut % (Auto) 71.0 (50-75) % Lymph % (Auto) 15.7 L (25-40) % [place] % (Auto) 7.6 (3-14) % Eos % (Auto) 5.2 H (2-4) % Baso % (Auto) 0.5 (0-2) % Neut # (Auto) 5200 (5159-6064) /uL Lymph # (Auto) 1100 (6352-2949) /uL [place] # (Auto) 600 (0-900) /uL Eos # (Auto) 400 (0-450) /uL Baso # (Auto) 0 (0-100) /uL PT 12.0 (9.4-12.5) SECONDS INR 1.1 (0.9-1.3) APTT 28 (25.1-36.5) SECONDS Sodium 139 (137-145) mmol/L Potassium 3.7 (3.4-5.1) mmol/L Chloride 107 (98-107) mmol/L Carbon Dioxide 22 (22-32) mmol/L BUN 31 H (9-20) mg/dL Creatinine 0.94 (0.66-1.25) mg/dL Estimated GFR > 60 (>60) mL/min BUN/Creatinine Ratio 33.0 H (6-22) Glucose 114 H (70-99) mg/dL Lactate 1.5 (0.7-2.1) mmol/L Calcium 8.8 (8.4-10.2) mg/dL Magnesium 1.9 (1.6-2.3) mg/dL Total Bilirubin 0.3 (0.2-1.3) mg/dL AST 20 (17-59) IU/L ALT 25 (<50) IU/L Alkaline Phosphatase 48 (38-126) U/L Total Creatine Kinase 63 (55-170) U/L Troponin I < 0.012 (0.01-0.034) ng/mL NT-Pro-B Natriuret Pep 119 (<125) pg/mL Total Protein 6.8 (6.3-8.2) g/dL Albumin 4.3 (3.5-5.0) g/dL Globulin 2.5 (1.7-4.1) g/dL Albumin/Globulin Ratio 1.7 (1.0-2.8) Lipase 90 (23-300) U/L SARS-CoV-2 (PCR) Negative (Negative) Imaging Data Chest x-ray: Radiologist's Impression: PROCEDURE: XR CHEST 1V INDICATIONS: Chest Pain TECHNIQUE: One view of the chest was acquired. COMPARISON: [facility], CR, XR CHEST 1V, 11/14/2023, 10:37. FINDINGS: Surgical changes and devices: Remote valvuloplasty and CABG. Lungs and pleura: Lungs are clear. No pleural effusions or pneumothorax. Mediastinum: Mediastinal contours appear normal. Heart size is normal. Bones and chest wall: No suspicious bony lesions. Overlying soft tissues appear unremarkable. IMPRESSION: No acute cardiopulmonary abnormality is seen. Dictated by: Pavel Arauz M.D. on 09/09/2024 at 19:10 Approved by: Pavel Arauz M.D. on 09/09/2024 at 19:10 ECG Data Attestation: I personally reviewed and interpreted this ECG as follows: Prior ECG tracings: available for review Interpretation: Sinus rhythm rate 63 CT interval 186 QRS [address] changes similar to previous EKGs MDM Narrative Medical decision making narrative: Patient 59-year-old male who initially was hypotensive but does sometimes have a low blood pressure presenting today with acute on chronic back pain. Blood pressure did come up with IV fluids he is not having any kind of chest pain or shortness of breath Blood work has been reviewed CBC no leukocytosis no anemia no electrolyte abnormality, no AMY Lactate 1.5 Bilirubin liver enzymes within normal limits lipase within normal limits Troponin negative BNP 119 Chest x-ray reviewed no acute cardiopulmonary process EKGs does show any ischemia Patient has a acute on chronic back pain. He has had imaging within the last 6 months of MRI of his back he has had CT chest abdomen and pelvis in October of 2023 which did not show any aneurysm or dissection. Blood pressures are not uncommonly low. His blood pressure has improved with IV fluids. He has no leukocytosis lactate is within normal limits low suspicion for any sort of sepsis. He did receive Toradol and IV fluids 1450-I was notified that patient left against medical advice. His blood pressure improved. He had good strong pedal pulses bilaterally he has known chronic lower back pain. Blood work is overall reassuring. No concern for cauda equina he recently has no known aneurysm imaging done a year ago. I was not able to discuss options with patient nursing staff signed him out. He has previously left Against Medical Advice from this department before. Discharge Plan Departure Patient Disposition: Left Against Medical Advice Clinical Impression: Left against medical advice Prescriptions: No Action naloxone [Narcan] 4 mg/actuation spray,non-aerosol 4 mg intranasal Q2M PRN (Reason: opioid overdose) Qty: 2 0RF Rx Instructions: spray 1 dose into ONE nostril; alternate nostrils w each dose until help arrives buspirone 10 mg tablet 10 mg PO BID Qty: 60 0RF methocarbamol 500 mg tablet 500 mg PO TID Qty: 90 3RF spironolactone 25 mg tablet PO Patient Comments: [NO ORIGINAL SIG] diazepam 5 mg tablet 5 mg PO BID PRN (Reason: anxiety) Qty: 60 1RF gabapentin 800 mg tablet 800 mg PO TID Qty: 90 3RF hydroxyzine pamoate 25 mg capsule 25 - 50 mg PO 3XD PRN (Reason: for anxiety attack) Qty: 180 0RF naproxen 500 mg tablet 500 mg PO BID PRN (Reason: for pain) Qty: 60 2RF trazodone 50 mg tablet 50 - 100 mg PO BEDTIME PRN (Reason: sleep) Qty: 60 3RF lidocaine 5 % adhesive patch,medicated 1 patch topical DAILY Qty: 30 3RF Rx Instructions: leave on most painful area for up to 12 hrs aspirin [Adult Aspirin Regimen] 81 mg tablet,delayed release (DR/EC) 81 mg PO DAILY Qty: 90 3RF metoprolol succinate 25 mg tablet extended release 24 hr 25 mg PO DAILY Qty: 90 2RF atorvastatin 80 mg tablet 80 mg PO ONCE PM Qty: 90 3RF bupropion HCl 150 mg tablet extended release 24 hr 150 mg PO QAM Qty: 90 4RF oxycodone 5 mg tablet 5 mg PO BID PRN (Reason: pain) Qty: 45 0RF albuterol sulfate 90 mcg/actuation HFA aerosol inhaler 2 inh inhalation Q4-6H PRN (Reason: shortness of breath or wheezing) Qty: 6.7 3RF ketorolac 10 mg tablet 10 mg PO Q8H PRN (Reason: pain) Qty: 14 0RF Rx Instructions: maximum total duration of 5 days from all oral, intranasal, or parenteral formulations acetaminophen [Tylenol Extra Strength] 500 mg tablet 1,000 mg PO Q6H PRN (Reason: pain) Qty: 20 0RF Referrals: Luz Saravia MD [Primary Care Provider, Family Practice] Stand Alone Forms: Patient Portal/API, Against Med. Advice ([place]in[place])
[2025-01-07] MEDS: KETOROLAC 30 MG/ML VIAL 15 MG IV (14:25)
[2025-01-07 14:59] LABS: Lactate (Lactic Acid) 1.5 mmol/L (0.7-2.1)
[2025-01-07 15:37] LABS: COVID-19 CEPHEID PCR (VTM/NP) Negative (Negative)
== END 2025-01-07 14:53 | disposition left against medical advice (07) ==
PROVIDERS: Emergency Provider Emergency Medicine; PCP Student in an Organized Health Care Education/Training Program
DX: M54.50 Low back pain, unspecified (principal); R07.9 Chest pain, unspecified
CPT/HCPCS: 36415; 80053; 82550; 83605; 83690; 83735; 83880; 84484; 85025; 85610; 85730; 87635; 93005; 93010; 96361; 96374; 99284; J1885